=== PATIENT | female | born 1965 ===

== ENCOUNTER → 2020-07-18 08:55 | Outpatient (BNV) | payer MEDICAID, SELFPAY | PROVIDERS: PCP Family Medicine; Visit Provider Internal Medicine Medical Oncology | DX: D69.3 Immune thrombocytopenic purpura (principal) | CPT/HCPCS: 99212; 99213; 99214 ==

== ENCOUNTER → 2020-09-18 13:41 | Outpatient (BNVA) | payer MEDICAID, SELFPAY | PROVIDERS: PCP Family Medicine; Visit Provider Internal Medicine Endocrinology, Diabetes & Metabolism | DX: E11.65 Type 2 diabetes mellitus with hyperglycemia (principal); E11.21 Type 2 diabetes mellitus with diabetic nephropathy; Z79.4 Long term (current) use of insulin; E78.5 Hyperlipidemia, unspecified; E66.9 Obesity, unspecified; E55.9 Vitamin D deficiency, unspecified | CPT/HCPCS: 82947; 99212 ==

== ENCOUNTER 2020-11-15 | Outpatient (REF) | payer MEDICAID, SELFPAY | END 2020-11-15 00:01 | disposition home or self-care (01) | LOC: HO.VC | PROVIDERS: Visit Provider Internal Medicine | DX: Z23 Encounter for immunization (principal) | CPT/HCPCS: 0011A ==

== ENCOUNTER 2020-12-12 | Outpatient (REF) | payer MEDICAID, SELFPAY | END 2020-12-12 00:01 | disposition home or self-care (01) | LOC: HO.VC | PROVIDERS: Visit Provider Internal Medicine | DX: Z23 Encounter for immunization (principal) | CPT/HCPCS: 0012A ==

== ENCOUNTER → 2020-12-26 14:02 | Outpatient (BNVA) | payer MEDICAID, SELFPAY | PROVIDERS: PCP Family Medicine; Visit Provider Internal Medicine Endocrinology, Diabetes & Metabolism | DX: E11.65 Type 2 diabetes mellitus with hyperglycemia (principal); E11.21 Type 2 diabetes mellitus with diabetic nephropathy; Z79.4 Long term (current) use of insulin; E78.5 Hyperlipidemia, unspecified; E66.9 Obesity, unspecified; E55.9 Vitamin D deficiency, unspecified | CPT/HCPCS: 82947; 99212 ==

== ENCOUNTER → 2021-01-09 07:45 | Outpatient (BNVA) | payer MEDICAID, SELFPAY | PROVIDERS: PCP Family Medicine; Visit Provider Internal Medicine Endocrinology, Diabetes & Metabolism ==

== ENCOUNTER → 2021-07-03 14:07 | Outpatient (BNVA) | payer MEDICAID, SELFPAY | PROVIDERS: PCP Family Medicine; Referring Provider Family Medicine; Visit Provider Internal Medicine | DX: I25.10 Atherosclerotic heart disease of native coronary artery without angina pectoris (principal); I10 Essential (primary) hypertension; E78.5 Hyperlipidemia, unspecified; E66.01 Morbid (severe) obesity due to excess calories; E11.8 Type 2 diabetes mellitus with unspecified complications; Z68.41 Body mass index [BMI] 40.0-44.9, adult | CPT/HCPCS: 93005; 99212 ==

== ENCOUNTER → 2021-08-23 13:03 | Outpatient (BNVA) | payer MEDICAID, SELFPAY | PROVIDERS: PCP Family Medicine; Referring Provider Family Medicine; Visit Provider Surgery | DX: Z48.817 Encounter for surgical aftercare following surgery on the skin and subcutaneous tissue (principal); Z87.2 Personal history of diseases of the skin and subcutaneous tissue | CPT/HCPCS: 99202 ==

== ENCOUNTER → 2021-09-11 11:53 | Outpatient (BNVA) | payer MEDICAID, SELFPAY | PROVIDERS: PCP Family Medicine; Visit Provider Nurse Practitioner Gerontology | DX: E11.65 Type 2 diabetes mellitus with hyperglycemia (principal); E11.21 Type 2 diabetes mellitus with diabetic nephropathy; I10 Essential (primary) hypertension; E78.5 Hyperlipidemia, unspecified; M79.7 Fibromyalgia; E03.9 Hypothyroidism, unspecified; F32.A Depression, unspecified; G47.33 Obstructive sleep apnea (adult) (pediatric); E66.01 Morbid (severe) obesity due to excess calories; Z68.41 Body mass index [BMI] 40.0-44.9, adult; Z99.89 Dependence on other enabling machines and devices; Z88.8 Allergy status to other drugs, medicaments and biological substances; Z79.4 Long term (current) use of insulin; Z79.899 Other long term (current) drug therapy | CPT/HCPCS: 82947; 83036; 99212 ==

== ENCOUNTER → 2021-09-25 13:15 | Outpatient (BNVA) | payer MEDICAID, SELFPAY | PROVIDERS: PCP Family Medicine; Referring Provider Family Medicine; Visit Provider Surgery | DX: Z48.817 Encounter for surgical aftercare following surgery on the skin and subcutaneous tissue (principal); Z87.2 Personal history of diseases of the skin and subcutaneous tissue | CPT/HCPCS: 99212 ==

== ENCOUNTER 2022-02-12 10:40 | Outpatient (REF) | payer MEDICAID, SELFPAY ==
[2022-02-12 12:16] LABS: Alanine Aminotransferase 25 U/L (0-31); Alkaline Phosphatase 93 U/L (39-117); Anion Gap 14 (12-20); Aspartate Amino Transferase 18 U/L (5-31); Bilirubin Total 0.6 mg/dL (0.0-1.0); Blood Urea Nitrogen 15 mg/dL (9-16); Carbon Dioxide 31 mmol/L (22-29); Chloride 97 mmol/L (96-108); Cholesterol 123 mg/dL; Estimated Glomerular Filt Rate 51; Glucose Fasting 263 mg/dL (60-99); HDL Cholesterol 39 mg/dL; LDL Cholesterol Calculated 65 mg/dl; Potassium 3.9 mmol/L (3.3-5.1); Sodium 138 mmol/L (135-145); Total Protein 7.1 g/dL (6.5-8.0); Triglycerides 97 mg/dL
[2022-02-12 12:16] LABS: Creatinine Urine 151.89 mg/dL; Microalbum/Creatinine Ratio Ur 52.6 ug/mg cr
[2022-02-14 06:56] LABS: LDL Cholesterol Direct 61 mg/dL (<100)
== END 2022-02-12 10:41 | disposition home or self-care (01) ==
LOC: HO.LAB 10:40
PROVIDERS: PCP Family Medicine; Visit Provider Nurse Practitioner Gerontology
DX: E11.65 Type 2 diabetes mellitus with hyperglycemia (principal)
CPT/HCPCS: 36415; 80053; 80061; 82043; 83721

== ENCOUNTER → 2022-02-19 13:03 | Outpatient (BNVA) | payer MEDICAID, SELFPAY | PROVIDERS: PCP Family Medicine; Visit Provider Nurse Practitioner Gerontology | DX: E11.65 Type 2 diabetes mellitus with hyperglycemia (principal); E78.5 Hyperlipidemia, unspecified; E66.09 Other obesity due to excess calories; I10 Essential (primary) hypertension; Z79.4 Long term (current) use of insulin; Z79.82 Long term (current) use of aspirin | CPT/HCPCS: 82947; 83036; 99212 ==

== ENCOUNTER 2022-03-06 13:03 | Outpatient (REF) | payer MEDICAID, SELFPAY ==
[2022-03-06 15:07] LABS: Free T4 (Free Thyroxine) 0.92 ng/dL (0.71-1.85); Thyroid Stimulating Hormone 2.33 uIU/mL (0.32-4.0)
== END 2022-03-06 13:04 | disposition home or self-care (01) ==
LOC: HO.LAB 13:03
PROVIDERS: PCP Family Medicine; Visit Provider Nurse Practitioner Gerontology
DX: E11.65 Type 2 diabetes mellitus with hyperglycemia (principal)
CPT/HCPCS: 36415; 84439; 84443

== ENCOUNTER → 2022-03-12 13:21 | Outpatient (BNVA) | payer MEDICAID, SELFPAY | PROVIDERS: PCP Family Medicine; Visit Provider Registered Nurse Diabetes Educator | DX: E11.9 Type 2 diabetes mellitus without complications (principal); E66.01 Morbid (severe) obesity due to excess calories | CPT/HCPCS: 95250; 99211 ==

== ENCOUNTER → 2022-04-01 13:34 | Outpatient (BNVA) | payer MEDICAID, SELFPAY | PROVIDERS: PCP Family Medicine; Visit Provider Nurse Practitioner Gerontology | DX: E11.65 Type 2 diabetes mellitus with hyperglycemia (principal); E78.5 Hyperlipidemia, unspecified; I10 Essential (primary) hypertension; E66.09 Other obesity due to excess calories; Z79.4 Long term (current) use of insulin | CPT/HCPCS: 99212 ==

== ENCOUNTER → 2022-09-10 11:54 | Outpatient (BNVA) | payer MEDICAID, SELFPAY | PROVIDERS: PCP Family Medicine; Referring Provider Family Medicine; Visit Provider Internal Medicine | DX: I25.10 Atherosclerotic heart disease of native coronary artery without angina pectoris (principal); E78.5 Hyperlipidemia, unspecified; E66.01 Morbid (severe) obesity due to excess calories; E11.8 Type 2 diabetes mellitus with unspecified complications; Z68.41 Body mass index [BMI] 40.0-44.9, adult | CPT/HCPCS: 93005; 99212 ==

== ENCOUNTER 2023-05-02 10:33 | Outpatient (REF) | payer MEDICAID, SELFPAY ==
--- NOTE | ~2023-05-02 | MM_ITS ---
EXAMINATION: MM SCREENING DIGITAL BREAST TOMOSYNTHESIS, BILATERAL CLINICAL INFORMATION: Screening. Asymptomatic. The lifetime risk of breast cancer based on the Tyrer-Cuzick Model is 5.8%. COMPARISON: Mammography: This study is compared with prior exams dating back to 2018. TECHNIQUE: Digital breast tomosynthesis is performed in both the craniocaudal and mediolateral oblique views along with computer-aided detection (CAD). Synthesized 2D images are generated from the tomosynthesis. FINDINGS: There are scattered areas of fibroglandular density (ACR BI-RADS breast composition Category b). There are calcifications in the deep third of the upper outer quadrant of the left breast which are defined only in the MLO projection. Additional mammographic imaging with magnification is advised. This should also include a laterally exaggerated craniocaudal view to locate the calcifications in the orthogonal plane. In the right breast, no are no significant masses, abnormal calcifications, or other abnormalities. There are few, bilateral, benign calcifications in each breast. MM/MM tomosynthesis screening BI IMPRESSION: Calcifications in the deep third the upper outer quadrant of the left breast warrants additional mammographic imaging with magnification. No mammographic signs of malignancy right breast. ASSESSMENT: BI-RADS BI-RADS 0 - Incomplete: Needs additional Imaging. RECOMMENDATION: Additional views of the left breast with magnification imaging in the lateral and laterally exaggerated craniocaudal projections. Radiology department staff will contact the patient for additional imaging. Additional Imaging required This examination should not preclude the clinical evaluation of a suspicious palpable abnormality. This patient's information was entered into a reminder system with a target due date for their next mammogram.
== END 2023-05-02 10:34 | disposition home or self-care (01) ==
LOC: HO.MAMMO 10:33
PROVIDERS: PCP Family Medicine; Visit Provider Family Medicine
DX: Z12.31 Encounter for screening mammogram for malignant neoplasm of breast (principal)
CPT/HCPCS: 77063; 77067

== ENCOUNTER → 2023-05-02 10:38 | Outpatient (BNV) | payer MEDICAID, SELFPAY | PROVIDERS: PCP Family Medicine; Visit Provider Radiology Diagnostic Radiology | DX: Z12.31 Encounter for screening mammogram for malignant neoplasm of breast (principal) | CPT/HCPCS: 77063; 77067 ==

== ENCOUNTER 2023-06-02 11:55 | Outpatient (REF) | payer MEDICAID, SELFPAY ==
--- NOTE | ~2023-06-02 | MM_ITS ---
EXAMINATION: MM DIAGNOSTIC DIGITAL MAMMOGRAPHY, LEFT CLINICAL INFORMATION: Follow-up for calcifications seen in the far posterior upper outer quadrant of the left breast, just lateral to the nipple line, seen on screening mammography. COMPARISON: Mammography: 05/02/2023, 07/29/2019, and 07/31/2012. TECHNIQUE: Digital mammography is performed in the following views: 3-D full-field digital left exaggerated CC view, as well as 2-D spot magnification left exaggerated CC x 3, and 90 degree mediolateral views x 3. FINDINGS: There are scattered areas of fibroglandular density (ACR BI-RADS breast composition Category b). There are pleomorphic grouped calcifications in the far posterior left breast located along the nipple line in the MLO view, and approximately 1 cm lateral to the nipple line within the exaggerated CCL view. Magnification views could not fully image the calcifications posterior extent due to their far posterior location, and were best seen on the exaggerated CC magnification views. These calcifications are suspicious, and biopsy is recommended. Due to their extreme posterior location, prone stereotactic biopsy may not be feasible, although we will make an attempt at this approach. If we cannot biopsy the calcifications, recommend surgical management with either excisional biopsy or upright stereotactic biopsy technique. The findings and results, as well as the potential for technical difficulties biopsying these far posterior left breast calcifications were discussed with the patient and her daughter (with an maintenance electrician) in detail. MM/MM added views LT IMPRESSION: Suspicious calcifications far posterior left breast as detailed, for which stereotactic biopsy is recommended. Please note, these are located so far posterior they could not be completely imaged on mammography. Recommend attempt utilizing CC approach. Please see discussion above regarding potential biopsy difficulty and alternatives should prone stereotactic biopsy prove technically unfeasible. ASSESSMENT: BI-RADS BI-RADS 4 - Suspicious finding RECOMMENDATION: Biopsy recommended This patient's information was entered into a reminder system with a target due date for their next mammogram.
== END 2023-06-02 11:56 | disposition home or self-care (01) ==
LOC: HO.MAMMO 11:55
PROVIDERS: PCP Family Medicine; Visit Provider Family Medicine
DX: R92.1 Mammographic calcification found on diagnostic imaging of breast (principal)
CPT/HCPCS: 77065

== ENCOUNTER → 2023-06-02 12:30 | Outpatient (BNV) | payer MEDICAID, SELFPAY | PROVIDERS: PCP Family Medicine; Visit Provider Radiology Diagnostic Radiology | DX: R92.1 Mammographic calcification found on diagnostic imaging of breast (principal) | CPT/HCPCS: 77065 ==

== ENCOUNTER 2023-06-04 12:14 | Outpatient (REF) | payer MEDICAID, SELFPAY ==
[2023-06-04 14:35] LABS: Alanine Aminotransferase 27 U/L (0-31); Albumin Level 3.8 g/dL (3.5-5.0); Alkaline Phosphatase 110 U/L (39-117); Anion Gap 12 (12-20); Aspartate Amino Transferase 18 U/L (5-31); Bilirubin Direct 0.2 mg/dL (0.0-0.5); Bilirubin Total 0.4 mg/dL (0.0-1.0); Blood Urea Nitrogen 14 mg/dL (9-16); Calcium 9.3 mg/dL (8.4-10.2); Carbon Dioxide 31 mmol/L (22-29); Chloride 98 mmol/L (96-108); Cholesterol 131 mg/dL (<200); Estimated Glomerular Filt Rate > 60; Glucose Random 334 mg/dL (60-115); HDL Cholesterol 53 mg/dL (>40); LDL Cholesterol Calculated 65 mg/dL (<100); Sodium 137 mmol/L (135-145); Total Protein 7.1 g/dL (6.5-8.0); Triglycerides 66 mg/dL (<150)
[2023-06-04 14:38] LABS: TSH reflex Free T4 1.56 uIU/mL (0.32-4.0)
[2023-06-04 14:40] LABS: Creatinine Urine 149.94 mg/dL
[2023-06-04 14:51] LABS: Vitamin B12 521 pg/mL (200-900)
== END 2023-06-04 12:15 | disposition home or self-care (01) ==
LOC: HO.HHCL 12:14
PROVIDERS: Visit Provider Family Medicine
DX: E03.9 Hypothyroidism, unspecified (principal); D51.0 Vitamin B12 deficiency anemia due to intrinsic factor deficiency; E11.9 Type 2 diabetes mellitus without complications; Z79.4 Long term (current) use of insulin
CPT/HCPCS: 36415; 80048; 80061; 80076; 82043; 82607; 84443

== ENCOUNTER 2023-06-06 08:41 | Outpatient (AMB) | payer MEDICAID, SELFPAY ==
--- NOTE | 2023-06-06 08:40 | MHC.OFFVIS ---
Intake Vital Signs 06/06/23 09:00 Height 4 ft 11 in Weight 208 lb BMI 42.0 BP 143/65 H Blood Pressure Location Lt brachial Position Sitting Pulse 101 H Intake Visit Reasons: Stereo biopsy left breast UOQ for calcifications Intake Note: Patient is seen in office for stereo biopsy consult of the left breast upper outer quadrant for calcifications. 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 If this is not possible she may require either a and upright stereotactic technique verses surgical biopsy. She denies a previous history of breast problems or breast surgery. Her family history is negative for breast cancer. She currently has no breast symptoms including breast lump, nipple discharge, or enlarged lymph nodes. She does report diffuse breast pain on both sides. She is and denies breast-feeding her children. 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 Obesity (BMI 30-39.9) Obesity due to excess calories Pernicious anemia Vitamin D deficiency Surgical History H/O: hysterectomy Hx of cataract surgery Family History Mother Diabetes Sister Stomach cancer Father Brother Colon cancer Brother Pancreas cancer Social History Household Members: None Housing: Apartment Are you a primary body care manager to a significant other at home: No Do you presently have visiting nurse or other home services: No Alcohol intake: current Alcohol intake frequency: does not drink Patient Tobacco Use Status: Former Tobacco user Quit Date: Over 20 years ago service: No Current occupational status: unemployed Current occupation: she lives with her . Female Reproductive History Menstrual Age of Menarche: 7 Age of menopause: 23 Total pregnancies: 3 Number of Living Children: 2 Ab spontaneous: 1 Review of Systems Const All systems reviewed & are unremarkable except as noted in HPI and below Denies chills, Denies fever(s), Denies headache(s), Denies poor appetite and Denies weakness ENT Denies headache(s) Card Denies chest pain, Denies irregular heart rhythm, Denies palpitations and Denies dyspnea Resp Denies cough, Denies excessive phlegm production and Denies dyspnea GI Denies abdominal pain, Denies bloating, Denies change in bowel habits, Denies constipation, Denies heartburn, Denies diarrhea, Denies nausea and Denies vomiting Denies urinary frequency and Denies nipple discharge Musc Denies back pain, Denies muscle weakness and Denies numbness Skin/Breast Denies breast swelling, Denies breast skin changes, Reports breast pain, Denies breast mass, Denies changing lesions, Denies nipple discharge and Denies unusual bruising Neuro Denies headache(s), Denies numbness, Denies paresthesias and Denies weakness Psych Denies anxiety and Denies depression Endo Denies palpitations Drew/Lymph Denies lymphadenopathy Physical Exam Const General: cooperative and no acute distress Nutritional Appearance: well nourished Orientation/consciousness: patient oriented x3 Limitations: no limitations HEENT Head: Yes normocephalic and Yes atraumatic Ears: hearing grossly normal bilaterally Chest Other: Left breast: No skin change, no nipple retraction, no nipple discharge, no palpable mass, no enlarged lymph nodes. Right breast: No skin change, no nipple retraction, no nipple discharge, no palpable mass, no enlarged lymph nodes Chest/axillae images: 1. Area of tenderness right breast 2. Area of tenderness left breast with no palpable mass; Dense breast tissue throughout. Resp Effort & Inspection: normal respiratory effort, no audible wheezes, no cough and no respiratory distress Cardio Jugular venous distension: no JVD GI Inspection: Yes normal to inspection Skin Other: Warm, dry, no rash Neuro General: patient oriented x3 Extrem General: Yes no clubbing, cyanosis or edema Assessment & Plan Assessment & Plan (1) Abnormal mammogram of left breast: Code(s): R92.8 - Other abnormal and inconclusive findings on diagnostic imaging of breast Plan 57-year-old female patient presenting with a recent mammogram with follow-up images which confirm a cluster of calcifications for posterior in the left breast seen best on the CC view. Findings were felt to be high suspicion for malignancy and stereotactic guided core biopsy recommended. She is scheduled for this biopsy at the [facility] later today. Examination today revealed no suspicious findings in either breast and no enlarged lymph nodes. I asked her to return approximately 1 week to review the pathology results and discuss treatment options as necessary. She expressed understanding and agrees with the plan. Orders: Orders MM stereotactic biopsy LT Today R92.8 - Other abnormal and inconclusive findings on diagnostic imaging of breast Coding Level of Care Code New Pt Level 4 (97257) Diagnoses Abnormal mammogram of left breast R92.8
[2023-06-06 09:00] VITALS: BP 143/65; PULSE 101; BMI 42.0
== END 2023-06-06 09:12 | disposition home or self-care (01) ==
PROVIDERS: PCP Family Medicine; Visit Provider Surgery
DX: R92.8 Other abnormal and inconclusive findings on diagnostic imaging of breast (principal)
CPT/HCPCS: 99214

== ENCOUNTER 2023-06-06 09:22 | Outpatient (REF) | payer MEDICAID, SELFPAY ==
--- NOTE | ~2023-06-06 | MM_ITS ---
EXAMINATION: STEREOTACTIC TOMOSYNTHESIS-GUIDED VACUUM-ASSISTED BREAST BIOPSY, LEFT SPECIMEN RADIOGRAPH, LEFT POST PROCEDURE DIGITAL MAMMOGRAM, LEFT CLINICAL INFORMATION: 57-year-old female with suspicious calcifications far posterior left breast 11:30 o'clock axis., 10 cm from the nipple. COMPARISON: 05/02/2023, 06/02/2023. TECHNIQUE/PROCEDURE: Informed consent was obtained from the patient after discussion of the benefits, risks, and alternatives to biopsy today. Patient appeared to understand. Gave opportunity for questions. Patient signed consent form. BIOPSY TABLE: [employer] Prone Biopsy System. LESION: Calcifications 11:30 o'clock axis, posterior one third approximately 10 cm from the nipple. LOCAL ANESTHESIA: 5 mL 1% lidocaine; 8 mL 1% lidocaine with epinephrine. DERMATOTOMY: Single skin hattie dermatotomy performed. NEEDLE: Glider.ioiva 9-gauge vacuum assisted core biopsy device. APPROACH: Craniocaudal. TARGETING: Digital breast tomosynthesis used for targeting. CORES: 6. CLIP: Top hat-shaped accurately placed, no evidence of clip migration. SPECIMEN RADIOGRAPH: Specimen radiograph is taken in separate room using digital mammography. The index calcifications are in at least 2 of the excised cores. POST PROCEDURE UNILATERAL DIGITAL MAMMOGRAM: The post biopsy mammogram is performed in separate room using separate digital mammography equipment from the biopsy procedure. X CCL and ML 2-D views are obtained. There are scattered areas of fibroglandular density (breast composition category: b). The clip marker is in accurate position. The calcifications are markedly decreased at the biopsy site. No gross hematoma. No evidence of complication. The patient tolerated the procedure very well. No immediate complications. Home instructions reviewed with the patient. Final pathology results are pending. MM/MM stereotactic biopsy LT IMPRESSION: 1. Digital tomosynthesis-guided core biopsy left breast with clip placement. 2. Specimen radiograph taken and post procedure mammogram. There is satisfactory and accurate positioning of the top hat-shaped biopsy clip. 3. Final pathology results pending. An addendum report will be issued.
[2023-06-06] MEDS: Lidocaine HCl 1 % 20 ML VIAL 4 ML SUBCUT (11:14)
[2023-06-06] MEDS: Lidocaine HCl 1%/Epi 1:100,000 10 ML VIAL 20 ML SUBCUT (11:16)
[2023-06-06] MEDS: Sodium Bicarbonate 8.4% 50 MEQ/50 ML VIAL SUBCUT (11:18)
== END 2023-06-06 09:23 | disposition home or self-care (01) ==
LOC: HO.MAMMO 09:22
PROVIDERS: PCP Family Medicine; Visit Provider Surgery
DX: R92.8 Other abnormal and inconclusive findings on diagnostic imaging of breast (principal)
CPT/HCPCS: 19081; 88305; 99212; A4648

== ENCOUNTER → 2023-06-06 10:00 | Outpatient (BNV) | payer MEDICAID, SELFPAY | PROVIDERS: PCP Family Medicine; Visit Provider Radiology Diagnostic Radiology | DX: R92.1 Mammographic calcification found on diagnostic imaging of breast (principal) | CPT/HCPCS: 19081; 77061 ==

== ENCOUNTER 2023-06-13 10:57 | Outpatient (AMB) | payer MEDICAID, SELFPAY ==
--- NOTE | 2023-06-13 11:27 | A.OFFVIS_ITS ---
Intake Vital Signs 06/13/23 11:36 Height 4 ft 11 in Weight 207 lb 3.752 oz BMI 41.9 BP 120/70 Blood Pressure Location Lt brachial Position Sitting Intake Visit Reasons: Follow Up Lt ST BX Intake Note: Patient is seen in office for biopsy results, following left breast. Patient c/o: denies any concerns Acupuncture Physician Required: No Accompanied by: Self / Same As Patient Allergies ibuprofen [IBUPROFEN] Allergy (Mild, Verified 06/13/23 11:37) RASH Medication List - Last Reconciled 06/13/23 by Zach Wilkinson MD acetaminophen (Tylenol Extra Strength) 1,000 mg PO QID PRN albuterol sulfate 90 mcg/actuation 2 puffs inhalation Q6H PRN alcohol swabs (Alcohol Prep Pads) 1 pad topical .6 times a day 30 days artificial tears with lanolin 1 appl ophthalmic (eye) BEDTIME aspirin (Adult Low Dose Aspirin) 81 mg PO DAILY atorvastatin 80 mg PO DAILY 90 days blood sugar diagnostic (FreeStyle Lite Strips) As directed four times a day cetirizine 10 mg PO DAILY cholecalciferol (vitamin D3) 50 mcg PO DAILY clonazepam 1 mg PO BEDTIME cyanocobalamin (vitamin B-12) 1,000 mcg IM QMONTH cyclobenzaprine 10 mg PO BEDTIME dicyclomine 10 mg PO TID doxycycline monohydrate 50 mg PO BID duloxetine 30 mg PO DAILY ferrous sulfate (Ibeth-Time) 325 mg PO BID finasteride 5 mg PO DAILY hydrochlorothiazide 12.5 mg PO DAILY insulin NPH and regular human 100 unit/mL (70-30) (Humulin 70/30 U-100 KwikPen) 100 units before breakfast and 60units before dinner subcut .Twice a day; 30 d ays ketotifen fumarate 0.025%(0.035%) 1 drp ophthalmic (eye) BID lancets (FreeStyle Lancets) 4 times a day levothyroxine (Tirosint) 137 mcg PO DAILY lisinopril 2.5 mg PO DAILY omega-3 fatty acids (Fish Oil Concentrate) 1,000 mg PO DAILY omeprazole 20 mg PO DAILY pen needle, diabetic (BD Karla 2nd Gen Pen Needle) Twice a day quetiapine 100 mg PO BEDTIME semaglutide (Ozempic) 2 mg (0.75 mL) subcut QWEEK 30 days zolpidem 10 mg PO BEDTIME HPI HPI Comments History of Present Illness Details 57-year-old female patient returning following a recent stereotactic guided core biopsy of the left breast. She initially presented with a mammogram dated 05/02/2023 with follow-up images obtained 06/02/2023 which revealed a cluster of calcifications in the far posterior left breast noted on the CC image, felt to be suspicious for malignancy. She denied any breast symptoms or palpable breast lump in her family history was negative for breast cancer. She is and denies breast-feeding her children. She underwent stereotactic guided core biopsy at the [facility] on 06/06/2023. Pathology revealed Benign breast tissue with fibroadenomatous change and coarse calcifications; negative for atypia or malignancy. She tolerated the procedure well and denies any ongoing breast symptoms. 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 Obesity (BMI 30-39.9) Obesity due to excess calories Pernicious anemia Vitamin D deficiency Surgical History H/O: hysterectomy Hx of cataract surgery Family History Mother Diabetes Sister Stomach cancer Father Brother Colon cancer Brother Pancreas cancer Social History Household Members: None Housing: Apartment Are you a primary school childcare attendant to a significant other at home: No Do you presently have visiting nurse or other home services: No Alcohol intake: current Alcohol intake frequency: does not drink Patient Tobacco Use Status: Former Tobacco user Quit Date: Over 20 years ago service: No Current occupational status: unemployed Current occupation: she lives with her . Female Reproductive History Menstrual Age of Menarche: 7 Review of Systems Const All systems reviewed & are unremarkable except as noted in HPI and below Denies chills, Denies fever(s), Denies headache(s), Denies poor appetite and Denies weakness ENT Denies headache(s) Card Denies chest pain, Denies irregular heart rhythm, Denies palpitations and Denies dyspnea Resp Denies cough, Denies excessive phlegm production and Denies dyspnea GI Denies abdominal pain, Denies bloating, Denies change in bowel habits, Denies constipation, Denies heartburn, Denies diarrhea, Denies nausea and Denies vomiting Denies urinary frequency and Denies nipple discharge Musc Denies back pain, Denies muscle weakness and Denies numbness Skin/Breast Denies breast swelling, Denies breast skin changes, Reports breast pain, Denies breast mass, Denies changing lesions, Denies nipple discharge and Denies unusual bruising Neuro Denies headache(s), Denies numbness, Denies paresthesias and Denies weakness Psych Denies anxiety and Denies depression Endo Denies palpitations Drew/Lymph Denies lymphadenopathy Physical Exam Vital Signs: Last Vital Signs BP 120/70 06/13/23 11:36 BMI result Body Mass Index 41.9 Const General: no acute distress Nutritional Appearance: well nourished Orientation/consciousness: patient oriented x3 Chest Other: Exam deferred Resp Effort & Inspection: normal respiratory effort Skin Other: Warm, dry, no rash Neuro General: patient oriented x3 Extrem General: Yes no clubbing, cyanosis or edema Assessment & Plan Assessment & Plan (1) Abnormal mammogram of left breast: Code(s): R92.8 - Other abnormal and inconclusive findings on diagnostic imaging of breast Plan 57-year-old female with a recent mammogram which revealed abnormal cluster of calcifications in the left breast felt to be suspicious for malignancy. Stereotactic guided core biopsy was performed on 06/06/2023. Pathology revealed benign findings with no evidence of malignancy. No surgical intervention is recommended at this time. Follow-up mammogram will be based on radiology recommendations. She should follow up as needed. Coding Level of Care Code Est Pt Level 3 (88576) Diagnoses Abnormal mammogram of left breast R92.8
[2023-06-13 11:36] VITALS: BP 120/70; BMI 41.9
== END 2023-06-13 11:47 | disposition home or self-care (01) ==
PROVIDERS: PCP Family Medicine; Visit Provider Surgery
DX: R92.8 Other abnormal and inconclusive findings on diagnostic imaging of breast (principal)
CPT/HCPCS: 99213

== ENCOUNTER → 2023-06-13 10:57 | Outpatient (BNVA) | payer MEDICAID, SELFPAY | PROVIDERS: PCP Family Medicine; Visit Provider Surgery | DX: R92.8 Other abnormal and inconclusive findings on diagnostic imaging of breast (principal) | CPT/HCPCS: 99212 ==

== ENCOUNTER → 2023-07-16 14:52 | Outpatient (REF) | payer MEDICAID, SELFPAY | LOC: HO.CARD 14:52 | PROVIDERS: PCP Family Medicine; Visit Provider Student in an Organized Health Care Education/Training Program | DX: R60.0 Localized edema (principal) | CPT/HCPCS: 93306; Q9957 ==

== ENCOUNTER → 2023-07-16 14:56 | Outpatient (BNV) | payer MEDICAID, SELFPAY | PROVIDERS: PCP Family Medicine; Visit Provider Internal Medicine | DX: R60.0 Localized edema (principal) | CPT/HCPCS: 93306 ==

== ENCOUNTER 2023-10-29 12:57 | Outpatient (AMB) | payer MEDICAID, SELFPAY ==
--- NOTE | 2023-10-29 13:03 | A.OFFVIS_ITS ---
Intake Vital Signs 10/29/23 14:21 Height 4 ft 11 in Weight 210 lb BMI 42.4 BP 120/74 Intake Visit Reasons: Inflamed cyst on buttock Intake Note: Pt states she's had it for a few months. Has taken a few courses of antibiotics. Data Officer Required: Yes Allergies ibuprofen [IBUPROFEN] Allergy (Mild, Verified 07/24/23 13:37) RASH Medication List - Last Reconciled 10/29/23 by Ata Fleming RN acetaminophen (Tylenol Extra Strength) 1,000 mg PO QID PRN alcohol swabs (Alcohol Prep Pads) 1 pad topical .6 times a day 30 days artificial tears with lanolin 1 appl ophthalmic (eye) BEDTIME aspirin (Adult Low Dose Aspirin) 81 mg PO DAILY atorvastatin 80 mg PO DAILY 90 days blood sugar diagnostic (FreeStyle Lite Strips) As directed four times a day cetirizine 10 mg PO DAILY cholecalciferol (vitamin D3) 50 mcg PO DAILY clonazepam 1 mg PO BEDTIME cyanocobalamin (vitamin B-12) 1,000 mcg IM QMONTH cyclobenzaprine 10 mg PO BEDTIME dicyclomine 10 mg PO TID duloxetine 30 mg PO DAILY ferrous sulfate 325 mg PO DAILY ferrous sulfate (Ibeth-Time) 325 mg PO BID finasteride 5 mg PO DAILY hydrochlorothiazide 12.5 mg PO DAILY insulin NPH and regular human 100 unit/mL (70-30) (Humulin 70/30 U-100 KwikPen) 100 units before breakfast and 60units before dinner subcut .Twice a day; 30 days ketotifen fumarate 0.025%(0.035%) 1 drp ophthalmic (eye) BID lancets (FreeStyle Lancets) 4 times a day levothyroxine (Tirosint) 137 mcg PO DAILY lisinopril 2.5 mg PO DAILY omega-3 fatty acids (Fish Oil Concentrate) 1,000 mg PO DAILY omeprazole 20 mg PO DAILY pen needle, diabetic (BD Karla 2nd Gen Pen Needle) Twice a day quetiapine 100 mg PO BEDTIME zolpidem 10 mg PO BEDTIME HPI HPI Comments History of Present Illness Details 58-year-old female patient presenting fo r evaluation of a posterior buttock abscess. She reports infection ongoing in this site for several months with intermittent flare-ups. She has been on several courses of antibiotics which have not significantly helped. She denies any fever or chills but does have occasional discharge. [facility] Medical History Obesity due to excess calories Atherosclerotic cardiovascular disease Vitamin D deficiency Obesity (BMI 30-39.9) Dyslipidemia Diabetic nephropathy associated with type 2 diabetes mellitus MCFP (current) use of insulin Diabetes type 2, uncontrolled History of chest pain Asthma Pernicious anemia Diabetes mellitus Fibromyalgia GERD (gastroesophageal reflux disease) Hypertension Adult hypothyroidism Surgical History Hx of cataract surgery H/O: hysterectomy Family History Mother Diabetes Sister Stomach cancer Father Brother Colon cancer Brother Pancreas cancer Social History Household Members: None Housing: Apartment Are you a primary manager urgent care to a significant other at home: No Do you presently have visiting nurse or other home services: No Alcohol intake: current Alcohol intake frequency: does not drink Patient Tobacco Use Status: Former Tobacco user Quit Date: Over 20 years ago service: No Current occupational status: unemployed Current occupation: she lives with her . Female Reproductive History Menstrual Age of Menarche: 7 Review of Systems Const All systems reviewed & are unremarkable except as noted in HPI and below Denies chills, Denies fever(s), Denies headache(s), Denies poor appetite and Denies weakness ENT Denies headache(s) Card Denies chest pain, Denies irregular heart rhythm, Denies palpitations and Denies dyspnea Resp Denies cough, Denies excessive phlegm production and Denies dyspnea GI Denies abdominal pain, Denies bloating, Denies change in bowel habits, Denies constipation, Denies heartburn, Denies diarrhea, Denies nausea and Denies vomi ting Denies urinary frequency Musc Denies back pain, Denies muscle weakness and Denies numbness Skin/Breast Denies changing lesions and Denies unusual bruising Neuro Denies headache(s), Denies numbness, Denies paresthesias and Denies weakness Psych Denies anxiety and Denies depression Endo Denies palpitations Drew/Lymph Denies lymphadenopathy Physical Exam Vital Signs: Last Vital Signs BP 120/74 10/29/23 14:21 BMI result Body Mass Index 42.4 Const General: cooperative and no acute distress Nutritional Appearance: well nourished Orientation/consciousness: patient oriented x3 Limitations: no limitations HEENT Head: Yes normocephalic and Yes atraumatic Ears: hearing grossly normal bilaterally Resp Effort & Inspection: normal respiratory effort, no audible wheezes, no cough and no respiratory distress Cardio Jugular venous distension: no JVD GI Inspection: Yes normal to inspection Back/Spine/Pelvis Other: Inflammatory changes in the posterior gluteal skin along the intergluteal cleft suggestive of local dermatitis or moisture excoriation. An areas slightly more inferior in the perianal region is more suggestive of a perianal abscess. A small fluctuant collection is identified. Skin Other: Warm, dry, no rash Neuro General: patient oriented x3 Extrem General: Yes no clubbing, cyanosis or edema Office Procedures I&D Drain Details: Preoperative diagnosis: Perirectal abscess Postoperative diagnosis: Same Procedure: I&D perirectal abscess Surgeon: Zach Wilkinson MD Biological Photographer: None Anesthesia: Lidocaine 1% with epi Indications for procedure: Abscess perirectal Operative findings: Abscess perirectal Specimen: None Estimated blood loss: None Complications: None Procedure details: Patient was placed in a right lateral decubitus position. The abscess was identified. After assuring informed consent, the skin was prepped with Betadine and draped in a sterile fashion. Local anesthesia was then infiltrated over the abscess. A small incision was then made with a scalpel and a small collection drained. This was then packed with Nu Gauze qu arter-inch. Sterile dressings were applied. The patient tolerated the procedure well. [id number] of Skin Abscess, simple All charges added?: Procedure code (CPT) selection complete Assessment & Plan Assessment & Plan (1) Abscess: Code(s): L02.91 - Cutaneous abscess, unspecified Plan 58-year-old female patient presenting with perianal abscess. This was incised and drained with a small abscess. Collection drained. Wounds were packed patient instructed on local wound care. Coding Level of Care Code New Pt Level 3 (46937) Diagnoses Abscess L02.91 CPT Codes I&D Drain - Drain 1: [id number] of Skin Abscess, simple ([id number])
[2023-10-29 14:21] VITALS: BP 120/74; BMI 42.4
== END 2023-10-29 13:33 | disposition home or self-care (01) ==
PROVIDERS: PCP Family Medicine; Visit Provider Surgery
DX: L02.91 Cutaneous abscess, unspecified (principal)
CPT/HCPCS: 10060; 99213

== ENCOUNTER → 2023-10-29 12:57 | Outpatient (BNVA) | payer MEDICAID, SELFPAY | PROVIDERS: PCP Family Medicine; Visit Provider Surgery | DX: K61.0 Anal abscess (principal) | CPT/HCPCS: 10060; 99212 ==

== ENCOUNTER 2023-11-06 14:20 | Outpatient (AMB) | payer MEDICAID, SELFPAY ==
--- NOTE | 2023-11-06 14:24 | MHC.OFFVIS ---
Intake Vital Signs 11/06/23 14:37 Height 4 ft 11 in Weight 215 lb 4 oz BMI 43.5 BP 132/60 Blood Pressure Location Lt brachial Position Sitting Pulse 89 Intake Visit Reasons: Inflamed cyst on buttock, 1 wk follow up Intake Note: Patient is seen in office for one week follow up visit, post I&D of perianal abscess. Pt c/o: admits to continued discharge in the area, feels a lump in the area, hot to the touch, has a new abscess on bilateral side of the groin area Tool Grinder Operator External Required: Yes Tool Grinder Operator External Language: Transplant Nurse Practitioner Name: Liz MCCULLOUGH Information Interpreted: non-clinical & clinical Cnc Set Up Operator: Cnc Set Up Operator Present Accompanied by: Self / Same As Patient Allergies ibuprofen [IBUPROFEN] Allergy (Mild, Verified 11/06/23 14:37) RASH HPI HPI Comments History of Present Illness Details 58-year-old female patient returning following incision and drainage of an abscess in the posterior buttock. She feels a residual lump and occasional discharge from the site but generally feels improved. She also notes an area in bilateral groins which are red and irritated and causing some pain. She denies any bleeding or discharge from the site. 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 Diabetes type 2, uncontrolled Asthma Pernicious anemia Diabetes mellitus Fibromyalgia GERD (gastroesophageal reflux disease) Hypertension Adult hypothyroidism Surgical History (Updated 11/06/23 @ 14:43 by Jacinta Bray RN) H/O colonoscopy Hx of cataract surgery H/O: hysterectomy Family History Mother Diabetes Sister Stomach cancer Father Brother Colon cancer Brother Pancreas cancer Social History Household Members: None Housing: Apartment Are you a primary acute care surgeon to a significant other at home: No Do you presently have visiting nurse or other home services: No Alcohol intake: current Alcohol intake frequency: does not drink Patient Tobacco Use Status: Former Tobacco user Quit Date: Over 20 years ago service: No Current occupational status: unemployed Current occupation: she lives with her . Female Reproductive History Menstrual Age of Menarche: 7 Review of Systems Const All systems reviewed & are unremarkable except as noted in HPI and below Denies chills, Denies fever(s), Denies headache(s), Denies poor appetite and Denies weakness ENT Denies headache(s) Card Denies chest pain, Denies irregular heart rhythm, Denies palpitations and Denies dyspnea Resp Denies cough, Denies excessive phlegm production and Denies dyspnea GI Denies abdominal pain, Denies bloating, Denies change in bowel habits, Denies constipation, Denies heartburn, Denies diarrhea, Denies nausea and Denies vomiting Denies urinary frequency Musc Denies back pain, Denies muscle weakness and Denies numbness Skin/Breast Denies changing lesions and Denies unusual bruising Neuro Denies headache(s), Denies numbness, Denies paresthesias and Denies weakness Psych Denies anxiety and Denies depression Endo Denies palpitations Drew/Lymph Denies lymphadenopathy Physical Exam Vital Signs: Last Vital Signs Pulse 89 11/06/23 14:37 BP 132/60 11/06/23 14:37 BMI result Body Mass Index 43.5 Const General: cooperative and no acute distress Nutritional Appearance: well nourished Orientation/consciousness: patient oriented x3 Limitations: no limitations HEENT Head: Yes normocephalic and Yes atraumatic Ears: hearing grossly normal bilaterally Resp Effort & Inspection: normal respiratory effort, no audible wheezes, no cough and no respiratory distress Cardio Jugular venous distension: no JVD GI Other: Bilateral groins reveal an area of erythema suggestive of a fungal skin infection. No abscess is appreciated. Inspection: Yes normal to inspection Back/Spine/Pelvis Other: Previous inflammatory changes in the posterior gluteal skin is now much improved. The I&D site is clean and nearly closed. No residual abscess is appreciated. The surrounding skin is much improved as well. Skin Other: Warm, dry, no rash Neuro General: patient oriented x3 Extrem General: Yes no clubbing, cyanosis or edema Assessment & Plan Assessment & Plan (1) Fungal skin infection: Code(s): B36.9 - Superficial mycosis, unspecified Plan 58-year-old female patient status post incision and drainage of an abscess of the perianal skin. Her wounds are much improved with no evidence of ongoing abscess. She does appear to have a fungal skin infection of the bilateral groins. I recommended applying nystatin cream daily to this area. She should follow up as needed. Medications: New nystatin Applied to bilateral groins daily 1 appl topical DAILY 15 grams 0RF B36.9 - Superficial mycosis, unspecified Coding Level of Care Code Global (28803) Diagnoses Fungal skin infection B36.9
[2023-11-06 14:37] VITALS: BP 132/60; PULSE 89; BMI 43.5
== END 2023-11-06 14:47 | disposition home or self-care (01) ==
PROVIDERS: PCP Family Medicine; Visit Provider Surgery
DX: B36.9 Superficial mycosis, unspecified (principal)
CPT/HCPCS: 99024

== ENCOUNTER → 2023-11-06 14:20 | Outpatient (BNVA) | payer MEDICAID, SELFPAY | PROVIDERS: PCP Family Medicine; Visit Provider Surgery | DX: B36.9 Superficial mycosis, unspecified (principal) | CPT/HCPCS: 99212 ==

== ENCOUNTER 2023-11-10 08:06 | Day surgery (SDC) | payer MEDICAID, SELFPAY ==
[2023-11-06 14:47] VITALS: BMI 43.2
--- NOTE | 2023-11-07 11:55 | HO.ANESPROP2 ---
Documented by User: Grecia Patel NP 11/07/23 11:57 HPI - Anesthesia Eval Consult details Narrative: 58yo F for Colonoscopy Previously seen by [facility] for ASCD with negative coronary CTA. No f/u since 2021 [facility] Active Problems Active Problems: All Active Problems (Updated 11/06/23 @ 14:46 by Jacinta Bray RN) Fungal skin infection (Acute) Abnormal mammogram of left breast (Acute) Abscess (Acute) Morbid obesity (Acute) Other and unspecified hyperlipidemia (Acute) Essential hypertension (Acute) Type 2 diabetes mellitus with unspecified complications (Acute) Chronic ITP (idiopathic thrombocytopenia) (Acute) Chronic ITP (idiopathic thrombocytopenia) (Acute) Chronic ITP (idiopathic thrombocytopenia) (Acute) Obesity due to excess calories (Acute) Atherosclerotic cardiovascular disease (Acute) Vitamin D deficiency (Acute) Obesity (BMI 30-39.9) (Acute) Dyslipidemia (Acute) Diabetic nephropathy associated with type 2 diabetes mellitus (Acute) 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 (Acute) Diabetes type 2, uncontrolled (Acute) Diabetes mellitus (Acute) Past Medical History Medical History CAD (coronary artery disease) Migraines Anxiety and depression IBS (irritable bowel syndrome) Sleep apnea Obesity due to excess calories Atherosclerotic cardiovascular disease Vitamin D deficiency Obesity (BMI 30-39.9) Dyslipidemia Diabetic nephropathy associated with type 2 diabetes mellitus 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 Diabetes type 2, uncontrolled Asthma Pernicious anemia Diabetes mellitus Fibromyalgia GERD (gastroesophageal reflux disease) Hypertension Adult hypothyroidism Family History Family History Mother Diabetes Sister Stomach cancer Father Brother Colon cancer Brother Pancreas cancer Surgical History Surgical History H/O colonoscopy Hx of cataract surgery H/O: hysterectomy Social History Social History Household Members: None Housing: Apartment Are you a primary patient centered care specialist to a significant other at home: No Do you presently have visiting nurse or other home services: No Alcohol intake: current Alcohol intake frequency: does not drink Patient Tobacco Use Status: Former Tobacco user Quit Date: Over 20 years ago Advance Directives: No Advance Directives Information Provided: Yes service: No Current occupational status: unemployed Current occupation: she lives with her . Meds Allergies Allergy/AdvReac Type Severity Reaction Status Date / Time ibuprofen [IBUPROFEN] Allergy Mild RASH Verified 11/10/23 09:25 Home Medications Medication Instructions Recorded Confirmed Last Taken Type artificial tears with lanolin eye 1 applic ophthalmic (eye) BEDTIME 07/18/20 11/06/23 Unknown History ointment cetirizine 10 mg tablet 10 mg PO DAILY 07/18/20 11/06/23 Unknown History clonazepam 1 mg tablet 1 mg PO BEDTIME 07/18/20 11/06/23 Unknown History cyanocobalamin (vitamin B-12) 1,000 mcg IM QMONTH 07/18/20 11/06/23 Unknown History 1,000 mcg/mL injection solution duloxetine 30 mg capsule,delayed 30 mg PO DAILY 07/18/20 11/06/23 Unknown History release hydrochlorothiazide 12.5 mg capsule 12.5 mg PO DAILY 07/18/20 11/06/23 Unknown History ketotifen fumarate 0.025 % (0.035 1 drp ophthalmic (eye) BID 07/18/20 11/06/23 Unknown History %) eye drops levothyroxine 137 mcg capsule 137 mcg PO DAILY 07/18/20 11/06/23 Unknown History (Tirosint) lisinopril 2.5 mg tablet 2.5 mg PO DAILY 07/18/20 11/06/23 Unknown History omeprazole 20 mg capsule,delayed 20 mg PO DAILY 07/18/20 11/06/23 Unknown History release quetiapine 100 mg tablet 100 mg PO BEDTIME 07/18/20 11/06/23 Unknown History acetaminophen 500 mg tablet 1,000 mg PO QID PRN Pain 08/25/20 11/06/23 Unknown History (Tylenol Extra Strength) dicyclomine 10 mg capsule 10 mg PO TID 12/11/20 11/06/23 Unknown History cyclobenzaprine 10 mg tablet 10 mg PO BEDTIME 12/26/20 11/06/23 Unknown History aspirin 81 mg tablet,delayed 81 mg PO DAILY 07/03/21 11/06/23 10/20/23 History release (Adult Low Dose Aspirin) cholecalciferol (vitamin D3) 50 50 mcg PO DAILY 07/03/21 11/06/23 Unknown History mcg (2,000 unit) capsule finasteride 5 mg tablet 5 mg PO DAILY 07/03/21 11/06/23 Unknown History omega-3 fatty acids 1,000 mg 1,000 mg PO DAILY 07/03/21 11/06/23 10/20/23 History capsule (Fish Oil Concentrate) zolpidem 10 mg tablet 10 mg PO BEDTIME 07/03/21 11/06/23 Unknown History Mounjaro 11/10/23 11/10/23 Unknown History Exam Height,Weight and Vital Signs: Height 4 ft 11 in Weight 97.069 kg Narrative Narrative: ECHO 07/2023 Conclusions: - The left ventricular systolic function is low normal. The visually estimated ejection fraction is between 50-55%. - No obvious valvular pathology seen on this study. Assessment and Plan Assessment Anesthesia Assessment: Chart Reviewed Documented by User: Joanna Harding MD 11/10/23 10:17 HPI - Anesthesia Eval Consult details Narrative: 58yo F for Colonoscopy Previously seen by [facility] for ASCD with negative coronary CTA. No f/u since 2021. On enquiry about medications for DM, patient states also taking mounjaro( Last dose 11/07/23) and toujeo. Patient unclear about what medications taken and when especially the Mounjaro- states was taven last Friday. On talking to Dr Robertson, patient had been instructed to stop mounjaro and patient now states that last dose of Mounjaro was 2 weeks ago. Was administered by her ACTION INSTALLER. ACTION INSTALLER was called and confirmed that last dose of Mounjaro was 2 weeks ago 10/31/23. Will proceed. Anesthesia Pre-Procedure Meds If Yes to any meds - educate patient: Pt education - increased risk of aspiration PMFSH Active Problems Active Problems: All Active Problems (Updated 11/10/23 @ 09:18 by Joanna Harding MD) Fungal skin infection (Acute) Abnormal mammogram of left breast (Acute) Abscess (Acute) Morbid obesity (Acute) BMI 43.2 Other and unspecified hyperlipidemia (Acute) Essential hypertension (Acute) Type 2 diabetes mellitus with unspecified complications (Acute) Chronic ITP (idiopathic thrombocytopenia) (Acute) Chronic ITP (idiopathic thrombocytopenia) (Acute) Chronic ITP (idiopathic thrombocytopenia) (Acute) Obesity due to excess calories (Acute) Atherosclerotic cardiovascular disease (Acute) Vitamin D deficiency (Acute) Obesity (BMI 30-39.9) (Acute) Dyslipidemia (Acute) Diabetic nephropathy associated with type 2 diabetes mellitus (Acute) 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 (Acute) Diabetes type 2, uncontrolled (Acute) Diabetes mellitus (Acute) Past Medical History Medical History CAD (coronary artery disease) Migraines Anxiety and depression IBS (irritable bowel syndrome) Sleep apnea Obesity due to excess calories Atherosclerotic cardiovascular disease Vitamin D deficiency Obesity (BMI 30-39.9) Dyslipidemia Diabetic nephropathy associated with type 2 diabetes mellitus 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 Diabetes type 2, uncontrolled Asthma Pernicious anemia Diabetes mellitus Fibromyalgia GERD (gastroesophageal reflux disease) Hypertension Adult hypothyroidism Family History Family History Mother Diabetes Sister Stomach cancer Father Brother Colon cancer Brother Pancreas cancer Family history of problems with anesthesia: No Surgical History Surgical History H/O colonoscopy Hx of cataract surgery H/O: hysterectomy History of Problems with Anesthesia: No Social History Social History Household Members: None Housing: Apartment Are you a primary patient centered care specialist to a significant other at home: No Do you presently have visiting nurse or other home services: No Alcohol intake: current Alcohol intake frequency: does not drink Patient Tobacco Use Status: Former Tobacco user Quit Date: Over 20 years ago Advance Directives: No Advance Directives Information Provided: Yes service: No Current occupational status: unemployed Current occupation: she lives with her . Meds Allergies Allergy/AdvReac Type Severity Reaction Status Date / Time ibuprofen [IBUPROFEN] Allergy Mild RASH Verified 11/10/23 09:25 Home Medications Medication Instructions Recorded Confirmed Last Taken Type artificial tears with lanolin eye 1 applic ophthalmic (eye) BEDTIME 07/18/20 11/06/23 Unknown History ointment cetirizine 10 mg tablet 10 mg PO DAILY 07/18/20 11/06/23 Unknown History clonazepam 1 mg tablet 1 mg PO BEDTIME 07/18/20 11/06/23 Unknown History cyanocobalamin (vitamin B-12) 1,000 mcg IM QMONTH 07/18/20 11/06/23 Unknown History 1,000 mcg/mL injection solution duloxetine 30 mg capsule,delayed 30 mg PO DAILY 07/18/20 11/06/23 Unknown History release hydrochlorothiazide 12.5 mg capsule 12.5 mg PO DAILY 07/18/20 11/06/23 Unknown History ketotifen fumarate 0.025 % (0.035 1 drp ophthalmic (eye) BID 07/18/20 11/06/23 Unknown History %) eye drops levothyroxine 137 mcg capsule 137 mcg PO DAILY 07/18/20 11/06/23 Unknown History (Tirosint) lisinopril 2.5 mg tablet 2.5 mg PO DAILY 07/18/20 11/06/23 Unknown History omeprazole 20 mg capsule,delayed 20 mg PO DAILY 07/18/20 11/06/23 Unknown History release quetiapine 100 mg tablet 100 mg PO BEDTIME 07/18/20 11/06/23 Unknown History acetaminophen 500 mg tablet 1,000 mg PO QID PRN Pain 08/25/20 11/06/23 Unknown History (Tylenol Extra Strength) dicyclomine 10 mg capsule 10 mg PO TID 12/11/20 11/06/23 Unknown History cyclobenzaprine 10 mg tablet 10 mg PO BEDTIME 12/26/20 11/06/23 Unknown History aspirin 81 mg tablet,delayed 81 mg PO DAILY 07/03/21 11/06/23 10/20/23 History release (Adult Low Dose Aspirin) cholecalciferol (vitamin D3) 50 50 mcg PO DAILY 07/03/21 11/06/23 Unknown History mcg (2,000 unit) capsule finasteride 5 mg tablet 5 mg PO DAILY 07/03/21 11/06/23 Unknown History omega-3 fatty acids 1,000 mg 1,000 mg PO DAILY 07/03/21 11/06/23 10/20/23 History capsule (Fish Oil Concentrate) zolpidem 10 mg tablet 10 mg PO BEDTIME 07/03/21 11/06/23 Unknown History Mounjaro 11/10/23 11/10/23 Unknown History Exam Height,Weight and Vital Signs: Height 4 ft 11 in Weight 97.069 kg Vital Signs Temp Pulse Resp BP Pulse Ox O2 Del Method 11/10/23 09:15 97.9 F 86 18 120/55 L 96 Room Air Pertinent Lab Results Pertinent Lab Results: Lab Results 11/10/23 Range/Units 09:10 WBC 8.1 (4.8-10.8) X10*3/uL RBC 5.07 (4.20-5.50) X10*6/uL Hgb 13.5 (12.0-16.0) g/dl Hct 41.5 (37.0-47.0) % MCV 81.9 (80.0-98.0) fL MCH 26.6 L (27.0-33.0) pg MCHC 32.5 (31.0-35.0) g/dl RDW 13.9 (11.0-16.0) % Plt Count 90 L D (160-400) X10*3/uL MPV Not Reportable Immature Gran % (Auto) 0.4 (0.0-0.4) % Neut % (Auto) 63.3 (45-73) % Lymph % (Auto) 21.9 (20-40) % [place] % (Auto) 10.7 (2-11) % Eos % (Auto) 3.0 (0-4) % Baso % (Auto) 0.7 (0-2) % Lymph # (Auto) 1.8 (1.2-4.9) X10*3/uL [place] # (Auto) 0.9 (0.1-1.2) X10*3/uL Eos # (Auto) 0.2 (0.0-0.4) X10*3/uL Baso # (Auto) 0.1 (0.0-0.2) X10*3/uL Abs Immat Gran (auto) 0.03 (0.00-0.03) X10*3/uL Absolute Neuts (auto) 5.1 (2.0-8.3) x10*3/uL Absolute Nucleated RBC 0.000 (0.0-0.012) X10*3/uL Nucleated RBC % (auto) 0.0 (0.0-0.2) /100WBC PT 12.4 (11.1-13.3) SEC INR 1.0 (0.9-1.1) Laboratory Last Values WBC 8.1 X10*3/uL (4.8-10.8) 11/10/23 09:10 RBC 5.07 X10*6/uL (4.20-5.50) 11/10/23 09:10 Hgb 13.5 g/dl (12.0-16.0) 11/10/23 09:10 Hct 41.5 % (37.0-47.0) 11/10/23 09:10 MCV 81.9 fL (80.0-98.0) 11/10/23 09:10 MCH 26.6 pg (27.0-33.0) L 11/10/23 09:10 MCHC 32.5 g/dl (31.0-35.0) 11/10/23 09:10 RDW 13.9 % (11.0-16.0) 11/10/23 09:10 Plt Count 90 X10*3/uL (160-400) L D 11/10/23 09:10 MPV Not Reportable 11/10/23 09:10 Immature Gran % (Auto) 0.4 % (0.0-0.4) 11/10/23 09:10 Neut % (Auto) 63.3 % (45-73) 11/10/23 09:10 Lymph % (Auto) 21.9 % (20-40) 11/10/23 09:10 [place] % (Auto) 10.7 % (2-11) 11/10/23 09:10 Eos % (Auto) 3.0 % (0-4) 11/10/23 09:10 Baso % (Auto) 0.7 % (0-2) 11/10/23 09:10 Lymph # (Auto) 1.8 X10*3/uL (1.2-4.9) 11/10/23 09:10 [place] # (Auto) 0.9 X10*3/uL (0.1-1.2) 11/10/23 09:10 Eos # (Auto) 0.2 X10*3/uL (0.0-0.4) 11/10/23 09:10 Baso # (Auto) 0.1 X10*3/uL (0.0-0.2) 11/10/23 09:10 Abs Immat Gran (auto) 0.03 X10*3/uL (0.00-0.03) 11/10/23 09:10 Absolute Neuts (auto) 5.1 x10*3/uL (2.0-8.3) 11/10/23 09:10 Absolute Nucleated RBC 0.000 X10*3/uL (0.0-0.012) 11/10/23 09:10 Nucleated RBC % (auto) 0.0 /100WBC (0.0-0.2) 11/10/23 09:10 PT 12.4 SEC (11.1-13.3) 11/10/23 09:10 INR 1.0 (0.9-1.1) 11/10/23 09:10 POC Glucose 141 mg/dL (60-115) H 11/10/23 09:06 Airway Mallampati Class: II TM Dist: >3cm Neck ROM: Full Loose/Missing/Broken Teeth: Yes (Poor dentition. Many missing. Many look broken?chipped but patient denies. Denies loose teeth) Heart: RRR Lungs: CTAB Assessment and Plan Assessment Anesthesia Assessment: Anesthesia Plan Discussed Final Anesthetic Review Family History of Problems with Anesthesia: No History of Problems with Anesthesia: No NPO: Yes ASA Class: III Final Preanesthetic Review: No Changes in Pt Med Stat, Meds/Allgs Chart Reviewed, Consent Obtained/Reviewed and Anes Risks/Benef Reviewed Patient Risk: Intermediate Procedure Risk: Low Assessment/Block/Sedation in SS: Assess/Block/Sedation-SS Anesthetic Plan Anesthetic Plan: MAC: and TIVA Disposition: Standard PACU
[2023-11-10] MEDS: Lactated Ringers 1,000 ML 100 ML IVCONT (08:39)
[2023-11-10 09:15] VITALS: BP 120/55; PULSE 86; RESP 18; TEMP 36.6; O2SAT 96; BMI 43.2
[2023-11-10 09:15] LABS: MANUAL DIFF FLAG NO
[2023-11-10 09:18] LABS: Basophils Absolute Auto 0.1 X10*3/uL (0.0-0.2); Basophils Percent Auto 0.7 % (0-2); Eosinophils Absolute Auto 0.2 X10*3/uL (0.0-0.4); Hematocrit 41.5 % (37.0-47.0); Hemoglobin 13.5 g/dl (12.0-16.0); Imm Gran Abs Auto 0.03 X10*3/uL (0.00-0.03); Imm Gran Pct Auto 0.4 % (0.0-0.4); Lymphocytes Absolute Auto 1.8 X10*3/uL (1.2-4.9); Lymphocytes Percent Auto 21.9 % (20-40); Mean Corpuscular HGB Conc 32.5 g/dl (31.0-35.0); Mean Corpuscular Hemoglobin 26.6 pg (27.0-33.0); Mean Corpuscular Volume 81.9 fL (80.0-98.0); Monocytes Absolute Auto 0.9 X10*3/uL (0.1-1.2); Monocytes Percent Auto 10.7 % (2-11); Neutrophils Absolute Auto 5.1 x10*3/uL (2.0-8.3); Neutrophils Percent Auto 63.3 % (45-73); Red Blood Count 5.07 X10*6/uL (4.20-5.50); Red Cell Distribution Width 13.9 % (11.0-16.0); White Blood Count 8.1 X10*3/uL (4.8-10.8)
[2023-11-10 09:20] LABS: Platelet Count 90 X10*3/uL (160-400)
[2023-11-10 09:26] LABS: Prothrombin Time 12.4 SEC (11.1-13.3)
[2023-11-10 09:35] LABS: Glucose, Whole Blood 141 mg/dL (60-115)
--- NOTE | 2023-11-10 10:04 | PC.NURSE ---
lab results at bedside. dr. taylor reviewed. ok to proceed.
--- NOTE | 2023-11-10 10:11 | PC.NURSE ---
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 okay to proceed.
--- NOTE | 2023-11-10 10:12 | PC.NURSE ---
Cornelius, buyer tobacco head, present when call made to HOME SPECIALIST.
[2023-11-10 11:14] VITALS: BP 124/70; PULSE 84; RESP 16; TEMP 36.9; O2SAT 95
--- NOTE | 2023-11-10 11:17 | PM.OP ---
Brief Operative Note Date of Service: 11/10/23 Pre-op diagnosis: Screening Post-op diagnosis: other (Diverticulosis) Procedure: Colonoscopy to the cecum Surgeon: Michael Robertson MD Anesthesia: MAC Was an Restaurant Assistant Manager used for this Procedure?: No Estimated blood loss (mL): 0 Pathology: none sent Condition: stable Disposition: PACU
[2023-11-10 11:28] VITALS: BP 128/63; PULSE 81; RESP 16; TEMP 36.9; O2SAT 94
--- NOTE | 2023-11-10 12:51 | OP_ITS ---
DATE OF SERVICE: 11/10/2023 SURGEON: Michael Robertson MD INDICATIONS: The patient presents for evaluation of colorectal cancer screening and family history of colon cancer. Full consent was obtained from her for this, including risks of bleeding and perforation. PREOPERATIVE DIAGNOSIS: POSTOPERATIVE DIAGNOSIS: PROCEDURE PERFORMED: Colonoscopy to the cecum. ESTIMATED BLOOD LOSS: COMPLICATIONS: ANESTHESIA: ASSISTANTS: SPECIMENS: PREOPERATIVE DIAGNOSES: Colorectal cancer screening and family history of colon cancer. POSTOPERATIVE DIAGNOSES: Colorectal cancer screening and family history of colon cancer, sigmoid diverticulosis, and internal hemorrhoids. PREOPERATIVE MEDICATION USED: Monitored anesthesia care. DESCRIPTION OF PROCEDURE: The patient was placed in the left lateral decubitus position. The digital rectal exam revealed no abnormalities. The Olympus video pediatric colonoscope was entered into the rectum and advanced easily to the cecum. Once in the cecum, I did identify normal-appearing cecal pouch with appendiceal orifice and a normal-appearing ileocecal valve. Of note, there was some residual stool in the cecum, which had to be irrigated and suctioned away. Ultimately good visualization was obtained including the appendiceal orifice and this all appeared normal. The ileocecal valve appeared normal. There was transillumination of light deep in the right lower quadrant. The scope was slowly withdrawn assessing all mucosal surfaces carefully. Preparation was for the most part good throughout the colon, although there were some areas of residual stool and liquid, which had to again be irrigated and suctioned away to allow visualization as best as possible. I did not visualize any polyps, colitis, nor angiodysplasia. There was a mild amount of sigmoid diverticulosis. In the rectum, scope was retroflexed visualizing small internal hemorrhoids, but no other pathology. The rectal mucosa appeared normal. The scope was straightened and withdrawn from the patient. She tolerated the procedure well and was returned to the recovery area in stable condition. IMPRESSION: 1. Diverticulosis. 2. Internal hemorrhoids. PLAN: Given her family history of her brother having had colon cancer, I would recommend a repeat colonoscopy in 5 years. She will otherwise see me on a p.r.n. basis. MD SARI Hernandez/CHRISTINA / [phone] MTDD
== END 2023-11-10 12:13 | disposition home or self-care (01) ==
PROVIDERS: PCP Family Medicine; Visit Provider Internal Medicine
PROC: 0DJD8ZZ Inspection of Lower Intestinal Tract, Via Natural or Artificial Opening Endoscopic (ICD-10-PCS; CPT 45378; principal; 2023-11-10 09:30)
DX: Z12.11 Encounter for screening for malignant neoplasm of colon (principal); Z80.0 Family history of malignant neoplasm of digestive organs; K57.30 Diverticulosis of large intestine without perforation or abscess without bleeding; K64.8 Other hemorrhoids; E11.9 Type 2 diabetes mellitus without complications; I10 Essential (primary) hypertension; E78.5 Hyperlipidemia, unspecified; D69.3 Immune thrombocytopenic purpura; E66.9 Obesity, unspecified; Z68.41 Body mass index [BMI] 40.0-44.9, adult; Z79.4 Long term (current) use of insulin; Z79.82 Long term (current) use of aspirin; Z79.02 Long term (current) use of antithrombotics/antiplatelets
CPT/HCPCS: 45378; 36415; 82947; 85025; 85610; J2250; J2704; J3010

== ENCOUNTER 2023-11-19 12:39 | Outpatient (REF) | payer MEDICAID, SELFPAY ==
--- NOTE | ~2023-11-19 | MM_ITS ---
EXAMINATION: MM DIAGNOSTIC DIGITAL BREAST TOMOSYNTHESIS, LEFT CLINICAL INFORMATION: Follow-up to benign left stereotactic biopsy 11:30 o'clock axis far posterior one third, with benign pathology. COMPARISON: Stereotactic biopsy 06/06/2023; mammography 06/02/2023, 05/02/2023, 07/29/2019, and 07/31/2012. TECHNIQUE: Digital left breast tomosynthesis is performed in both the craniocaudal and mediolateral oblique views along with computer-aided detection (CAD). Synthesized 2D images are generated from the tomosynthesis. In addition to standard views, 2-D spot magnification left CC x2, and ML x3 views were obtained. FINDINGS: There are scattered areas of fibroglandular density (ACR BI-RADS breast composition Category b). Within the extreme posterior left breast 11:30 o'clock axis, there is a top hat-shaped biopsy clip present from prior benign biopsy. There is only one remaining somewhat oval, benign-appearing microcalcification just inferior to the biopsy clip, appearing similar and unchanged from prior imaging. In addition, there are benign calcifications which are unchanged in the lower slightly medial left breast, mid to posterior one third, most likely fibroadenomatoid change. No suspicious masses, changing calcifications, or areas of architectural distortion left breast. No skin or axillary abnormality. MM/MM tomosynthesis diagnostic LT IMPRESSION: Stable benign findings left breast. Biopsy site shows no appreciable change in the far posterior 11:30 o'clock axis. No new or aggressive appearing microcalcifications. Recommend the patient resume routine annual screening mammography. ASSESSMENT: BI-RADS BI-RADS 2 - Benign Findings RECOMMENDATION: 1 year F/U Results were provided to the patient at time of visit by the technologist. This patient's information was entered into a reminder system with a target due date for their next mammogram.
== END 2023-11-19 12:40 | disposition home or self-care (01) ==
LOC: HO.MAMMO 12:39
PROVIDERS: PCP Family Medicine; Visit Provider Surgery
DX: R92.8 Other abnormal and inconclusive findings on diagnostic imaging of breast (principal)
CPT/HCPCS: 77061; 77065

== ENCOUNTER → 2023-11-19 13:00 | Outpatient (BNV) | payer MEDICAID, SELFPAY | PROVIDERS: PCP Family Medicine; Visit Provider Radiology Diagnostic Radiology | DX: R92.8 Other abnormal and inconclusive findings on diagnostic imaging of breast (principal) | CPT/HCPCS: 77061; 77065 ==

== ENCOUNTER 2024-04-09 14:15 | Emergency (ER) | payer MEDICAID, SELFPAY ==
--- NOTE | ~2024-04-09 | XR_ITS ---
EXAMINATION: XR SACRUM AND COCCYX CLINICAL INFORMATION: Pain. Injury. COMPARISON: 08/23/2016 TECHNIQUE: AP and lateral views of the sacrum and coccyx were obtained. FINDINGS: The sacrum is partially obscured by bowel and bowel contents. Sacroiliac joints and pubic symphysis are intact. Probable L5 spondylolysis. Calcification of the intervertebral disc at L4-L5. Facet hypertrophy at L4-L5 and L5-S1. The hip joints appear symmetric on the frontal projection. No displaced fracture or dislocation. XR/XR sacrum coccyx min 2V IMPRESSION: No acute abnormality.
--- NOTE | ~2024-04-09 | CT_ITS ---
EXAMINATION: CT CERVICAL SPINE WITHOUT CONTRAST CLINICAL INFORMATION: Fall. Head strike. COMPARISON: Cervical spine radiographs dated 11/24/2015. TECHNIQUE: Noncontrast computed tomography of the cervical spine was performed. This CT examination was performed using dose optimization techniques as appropriate, variously including the following: *Automated exposure control *Adjustment of mA and/or kV according to patient size (this includes techniques or standardized protocols for targeted exams where dose is matched to indication/reason for exam; i.e. extremities or head) *Use of iterative reconstruction technique DLP: 719 mGy-cm FINDINGS: The vertebral bodies and facet joints are anatomically aligned. Vertebral body heights are maintained. The C1-C2 relationship is anatomic. The dens is intact. There is no acute fracture. Intervertebral disc space heights are fairly well preserved. There are large bridging osteophytes at C4-C5, C5-C6, and C6-C7. The prevertebral soft tissue is normal in appearance. The paraspinal soft tissue is normal in appearance. The lung apices are clear. Thyroid gland is normal in appearance. The visualized brain parenchyma is normal in appearance. There is a small right mastoid air cell effusion. CT/CT cervical spine wo IV con IMPRESSION: No acute osseous cervical spine abnormality. Mild cervical spondylosis. Fleischner guidelines were followed.
--- NOTE | ~2024-04-09 | XR_ITS ---
EXAMINATION: XR LUMBOSACRAL SPINE CLINICAL INFORMATION: Pain. Injury. COMPARISON: Lumbar spine radiographs dated 11/24/2015. TECHNIQUE: Three views of the lumbosacral spine. FINDINGS: There is grade 1 anterolisthesis of L5 in relation to S1 in the setting of bilateral L5 pars defects. Vertebral body heights are maintained. There is mild narrowing of the L3-L4 and L4-L5 intervertebral disc spaces. There is facet arthropathy at L4-L5. There are vascular calcifications. The sacroiliac joints are maintained. XR/XR lumbar spine 2-3V IMPRESSION: No acute osseous lumbar spine abnormality. There is grade 1 anterolisthesis of L5 in relation to S1 in the setting of bilateral L5 pars defects. Mild lumbar spondylosis.
--- NOTE | ~2024-04-09 | CT_ITS ---
EXAMINATION: CT HEAD WITHOUT CONTRAST CLINICAL INFORMATION: Head strike. Fall. Pain. COMPARISON: None available. TECHNIQUE: Contiguous axial imaging was performed from the skull base to vertex without intravenous administration of contrast. This CT examination was performed using dose optimization techniques as appropriate, variously including the following: *Automated exposure control *Adjustment of mA and/or kV according to patient size (this includes techniques or standardized protocols for targeted exams where dose is matched to indication/reason for exam; i.e. extremities or head) *Use of iterative reconstruction technique DLP: 738 mGy-cm FINDINGS: There is no acute intracranial hemorrhage. There is no evidence of acute/subacute cerebral or cerebellar infarction. There is no midline shift or mass effect. No extra-axial fluid collection. The ventricles are normal in size. There is a partially empty, minimally expanded sella. The orbits are symmetric and within normal limits. The visualized paranasal sinuses are clear. There is a right mastoid air cell effusion. CT/CT head/brain wo IV con IMPRESSION: No acute intracranial pathology. Right mastoid air cell effusion.
[2024-04-09 14:16] VITALS: BP 171/87; PULSE 81; RESP 18; TEMP 36.4; O2SAT 96; BMI 44.6
--- NOTE | 2024-04-09 14:26 | ED.GENADULT ---
HPI - General Adult General Chief complaint: Fall Stated complaint: back pain Time Seen by Provider: 04/09/24 15:00 Source: patient Mode of arrival: ambulatory Limitations: no limitations History of Present Illness ED Provider: Kentrell CLOUD narrative: patient is a 58-year-old female presents to the emergency department for evaluation. She reports a mechanical trip and fall 2 days ago resulting in strike but no loss consciousness. She reports that over the past 2 days she has had progressive diffuse lower back pain and bilateral hip pain. She denies any numbness or tingling to the lower extremities, bladder bowel dysfunction, saddle paresthesias, urogenital symptoms. She denies any headache, dizziness, lightheadedness, vision changes, neck pain or neck stiffness. She has been taking ibuprofen without improvement, she is prescribed cyclobenzaprine for her fibromyalgia but she has not trialed taking this over the past few days. Related Data Home Medications ?Medication ?Instructions ?Recorded ?Confirmed artificial tears with lanolin eye 1 applic ophthalmic (eye) BEDTIME 07/18/20 03/05/24 ointment cetirizine 10 mg tablet 10 mg PO DAILY 07/18/20 03/05/24 clonazepam 1 mg tablet 1 mg PO BEDTIME 07/18/20 03/05/24 cyanocobalamin (vitamin B-12) 1,000 mcg IM QMONTH 07/18/20 03/05/24 1,000 mcg/mL injection solution duloxetine 30 mg capsule,delayed 30 mg PO DAILY 07/18/20 03/05/24 release hydrochlorothiazide 12.5 mg capsule 12.5 mg PO DAILY 07/18/20 03/05/24 ketotifen fumarate 0.025 % (0.035 1 drp ophthalmic (eye) BID 07/18/20 03/05/24 %) eye drops levothyroxine 137 mcg capsule 137 mcg PO DAILY 07/18/20 03/05/24 (Tirosint) lisinopril 2.5 mg tablet 2.5 mg PO DAILY 07/18/20 03/05/24 omeprazole 20 mg capsule,delayed 20 mg PO DAILY 07/18/20 03/05/24 release quetiapine 100 mg tablet 100 mg PO BEDTIME 07/18/20 03/05/24 acetaminophen 500 mg tablet 1,000 mg PO QID PRN Pain 08/25/20 03/05/24 (Tylenol Extra Strength) dicyclomine 10 mg capsule 10 mg PO TID 12/11/20 03/05/24 cyclobenzaprine 10 mg tablet 10 mg PO BEDTIME 12/26/20 03/05/24 aspirin 81 mg tablet,delayed 81 mg PO DAILY 07/03/21 03/05/24 release (Adult Low Dose Aspirin) cholecalciferol (vitamin D3) 50 50 mcg PO DAILY 07/03/21 03/05/24 mcg (2,000 unit) capsule finasteride 5 mg tablet 5 mg PO DAILY 07/03/21 03/05/24 omega-3 fatty acids 1,000 mg 1,000 mg PO DAILY 07/03/21 03/05/24 capsule (Fish Oil Concentrate) zolpidem 10 mg tablet 10 mg PO BEDTIME 07/03/21 03/05/24 Previous Rx's ?Medication ?Instructions ?Recorded alcohol swabs (Alcohol Prep Pads) 1 pad topical .6 times a day 30 01/09/22 days #200 ea pen needle, diabetic 32 gauge x #100 ea 01/09/2232 (BD Karla 2nd Gen Pen Needle) insulin NPH-regular 70-30 U-100 See Rx Instructions subcut .Twice 02/19/22 insulin 100 unit/mL subcutaneous a day 30 days #45 mL pen (Humulin 70/30 U-100 KwikPen) blood sugar diagnostic (FreeStyle #100 ea 06/28/22 Lite Strips) lancets 28 gauge (FreeStyle #100 ea 06/28/22 Lancets) ferrous sulfate 325 mg (65 mg 325 mg PO BID #120 tabs 05/01/23 iron) tablet (Ibeth-Time) ferrous sulfate 325 mg (65 mg 325 mg PO DAILY #90 tabs 09/22/23 iron) tablet atorvastatin 80 mg tablet 80 mg PO DAILY 90 days #90 tabs 10/16/23 nystatin 100,000 unit/gram topical 1 appl topical DAILY #15 grams 11/06/23 cream Allergies Allergy/AdvReac Type Severity Reaction Status Date / Time ibuprofen [IBUPROFEN] Allergy Mild RASH Verified 04/09/24 14:25 Review of Systems Review of Systems: Yes all other systems are reviewed and are negative PMFSH Past Medical History Attestation statement: The following information was validated with the patient. 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 Diabetes type 2, uncontrolled Asthma Pernicious anemia Diabetes mellitus Fibromyalgia GERD (gastroesophageal reflux disease) Hypertension Adult hypothyroidism Surgical History H/O colonoscopy Hx of cataract surgery H/O: hysterectomy Family History Family History Mother Diabetes Sister Stomach cancer Father Brother Colon cancer Brother Pancreas cancer Social History Social History Household Members: None Housing: Apartment Are you a primary patient centered care specialist to a significant other at home: No Do you presently have visiting nurse or other home services: No Alcohol intake: current Alcohol intake frequency: does not drink Patient Tobacco Use Status: Former Tobacco user Advance Directives: No Advance Directives Information Provided: No Do you have a plan to hurt others: No Plan service: No Current occupational status: unemployed Current occupation: she lives with her . Physical Exam ED Vital Signs: Vital Signs - 24 hr 04/09/24 14:16 Temperature 97.6 F Pulse Rate 81 Respiratory Rate 18 Blood Pressure 171/87 H Pulse Oximetry 96 Oxygen Delivery Method Room Air BMI result Body Mass Index 44.6 Appearance: Alert.?Oriented to person, place and time. No acute distress.?Normal affect. Head: normocephalic, atraumatic Eyes: Pupils equal, round and reactive to light.? EOMI. No nystagmus. No Periorbital ecchymosis ENT: Pharynx normal.?? TM normal bilaterally. Negative cannon sign. Neck: Normal inspection.? Neck supple.?? No midline cervical spine tenderness, step-offs, deformities. CVS: Heart sounds normal. Normal heart rate and rhythm.? Pulses normal.?? Respiratory: No respiratory distress.? Lung sounds clear to auscultation bilaterally?? Abdomen: Soft and non-tender. Normoactive bowel sounds. Skin: Skin warm and dry.? Normal skin color.? ? Back: bilateral paraspinal muscle tenderness in the lumbar the coccyx region. No midline tenderness, step-offs, deformities. No pain upon palpation of the bilateral SI joints. Full range of motion to the bilateral hips. Extremities: No lower extremity edema.? No calf ttp? Neuro: Moves all extremities spontaneously. Sensation intact bilaterally. CN II-XII intact. No focal neuro deficits. Ambulates with normal steady gait. Course Course Course Narrative: RME performed by Martina Ortez PA-C. Patient is a 58 year old assigned female at presenting to the emergency department with a fall and low back pain. Patient states 2 days ago she fell, hitting her head, stating that she is having bilateral hip pain and low back pain. Detailed physical exam and review of systems are deferred to the rn primary care. Imaging ordered. Patient placed back in the waiting room pending room availability and results. Medical Decision Making Medical Decision Making MDM Narrative: patient is a 58-year-old female with past medical history of CAD migraines IBS hypertension hypothyroidism, pernicious anemia, dyslipidemia, diabetes, asthma, fibromyalgia, GERD who presents emergency department for evaluation of traumatic lower back pain after mechanical fall with head strike but no loss of consciousness as per HPI. Overall she appears well, nontoxic, afebrile. She has no focal neurological deficits at the time of examination. Clinically have lower suspicion for ICH, SDH, skull fracture, subluxation, CT of the head and cervical spine were obtained prior to my assumption care and are without acute pathology. XR of the lumbar spine is without acute osseous abnormality, grade 1 anterolisthesis L5-S1 with mild spondylosis. These findings were discussed with patient. Unfortunately she is allergic to ibuprofen, would avoid NSAID, she is prescribed muscle relaxants she has not yet taken, she does have notable tenderness along the paraspinal muscles, I do think that this would be of benefit for her. I also spoke to her about following up with her primary care provider so that she may be referred for physical therapy. Exam findings are not consistent with cauda equina, no indication for emergent MRI/ CT. She has ambulatory with a steady gait. Stable for discharge home Differential Diagnosis Differential Diagnoses: The differential diagnosis associated with the presentation includes ( see narrative above) Admission/Observation Consideration of admission/observation: Escalation of care including admission/observation considered Independent Interpretation I performed an independent interpretation of an: Plain X-Ray ( no acute fracture of the lumbar spine) and CT Scan ( no ICH) Radiology Impression Discussion of test interpretation with radiology: I have reviewed the radiologist's reading. Radiologist Impression: XR/XR lumbar spine 2-3V IMPRESSION: No acute osseous lumbar spine abnormality. There is grade 1 anterolisthesis of L5 in relation to S1 in the setting of bilateral L5 pars defects. Mild lumbar spondylosis. XR/XR sacrum coccyx min 2V IMPRESSION: No acute abnormality. CT/CT head/brain wo IV con IMPRESSION: No acute intracranial pathology. Right mastoid air cell effusion. CT/CT cervical spine wo IV con IMPRESSION: No acute osseous cervical spine abnormality. Mild cervical spondylosis. Independent Historian Clinical information obtained from an independent historian. History obtained from or confirmed by: Other ( nonprofit manager) External Record Review External record reviewed: Outpatient record Prescription Management I considered prescription management with: Pain Medication ( see narrative above) Discharge Plan Discharge Clinical Impression: Lumbar spondylosis Patient Disposition: Home, Self-Care Instructions: Acute Low Back Pain (ED), Lower Back Exercises (ED) Additional Instructions: You can take Tylenol 500 mg, 2 tablets (1,000mg) every 4-6 hours as needed for pain, but not to exceed 3 doses daily (3,000mg).? take muscle relaxant, cyclobenzaprine as already prescribed 2. Follow-up with your primary care provider to discuss physical therapy. Return back to emergency department any new or worsening symptoms or concerns. Prescriptions: No Action (DME) pen needle, diabetic [BD Karla 2nd Gen Pen Needle] 32 gauge x 5/32 needle See Rx Instructions .MEDSUPPLY Qty: 100 11RF Rx Instructions: Twice a day alcohol swabs [Alcohol Prep Pads] Pads, Medicated 1 pad topical .6 times a day 30 Days Qty: 200 11RF (DME) FreeStyle Lite Strips Strip See Rx Instructions .ROUTE .MEDSUPPLY Qty: 100 11RF Rx Instructions: As directed four times a day (DME) lancets [FreeStyle Lancets] 28 gauge misc See Rx Instructions .ROUTE .MEDSUPPLY Qty: 100 11RF Rx Instructions: 4 times a day ferrous sulfate 325 mg (65 mg iron) Tablet 325 mg PO DAILY Qty: 90 6RF atorvastatin 80 mg tablet 80 mg PO DAILY 90 Days Qty: 90 0RF Rx Instructions: OVERDUE FOR APPT. PLEASE CALL [phone] TO SCHEDULE AN APPT SO WE CAN REFILL THIS MED. You can also opt to get future refills from your PCP. Thank you. cetirizine 10 mg Tablet 10 mg PO DAILY ketotifen fumarate 0.025 % (0.035 %) Drops 1 drp OPHTHALMIC (EYE) BID clonazepam 1 mg Tablet 1 mg PO BEDTIME quetiapine 100 mg Tablet 100 mg PO BEDTIME cyanocobalamin (vitamin B-12) 1,000 mcg/mL Solution 1,000 mcg IM QMONTH hydrochlorothiazide 12.5 mg Capsule 12.5 mg PO DAILY omeprazole 20 mg Capsule,Delayed Release(Dr/Ec) 20 mg PO DAILY lisinopril 2.5 mg Tablet 2.5 mg PO DAILY duloxetine 30 mg Capsule,Delayed Release(Dr/Ec) 30 mg PO DAILY Akwa Tears Ointment 1 applic OPHTHALMIC (EYE) BEDTIME levothyroxine [Tirosint] 137 mcg Capsule 137 mcg PO DAILY acetaminophen [Tylenol Extra Strength] 500 mg Tablet 1,000 mg PO QID PRN (Reason: Pain) dicyclomine 10 mg Capsule 10 mg PO TID ferrous sulfate [Ibeth-Time] 325 mg (65 mg iron) Tablet 325 mg PO BID Qty: 120 4RF cyclobenzaprine 10 mg tablet 10 mg PO BEDTIME zolpidem 10 mg tablet 10 mg PO BEDTIME cholecalciferol (vitamin D3) 50 mcg (2,000 unit) capsule 50 mcg PO DAILY omega-3 fatty acids [Fish Oil Concentrate] 1,000 mg capsule 1,000 mg PO DAILY finasteride 5 mg tablet 5 mg PO DAILY aspirin [Adult Low Dose Aspirin] 81 mg tablet,delayed release (DR/EC) 81 mg PO DAILY Humulin 70/30 U-100 KwikPen 100 unit/mL (70-30) insulin pen See Rx Instructions subcut .Twice a day 30 Days Qty: 45 5RF Rx Instructions: 100 units before breakfast and 60units before dinner subcut .Twice a day; nystatin 100,000 unit/gram cream 1 appl topical DAILY Qty: 15 0RF Rx Instructions: Applied to bilateral groins daily Referrals: Katelynn Guzman MD [Primary Care Provider] - Print Language: Malaysian
[2024-04-09 16:47] VITALS: BP 131/55; PULSE 76; RESP 18; TEMP 36.4; O2SAT 96
[2024-04-09 17:38] VITALS: BP 131/55; PULSE 76; RESP 18; TEMP 36.4; O2SAT 96
== END 2024-04-09 17:38 | disposition home or self-care (01) ==
PROVIDERS: Emergency Provider Emergency Medicine; PCP Family Medicine
DX: M54.50 Low back pain, unspecified (principal); M25.552 Pain in left hip; M25.551 Pain in right hip; M54.2 Cervicalgia; R51.9 Headache, unspecified; Z79.899 Other long term (current) drug therapy
CPT/HCPCS: 70450; 72100; 72125; 72220; 99283; 99284

== ENCOUNTER 2024-05-13 12:32 | Outpatient (REF) | payer MEDICAID, SELFPAY ==
--- NOTE | ~2024-05-13 | MM_ITS ---
EXAMINATION: MM SCREENING DIGITAL BREAST TOMOSYNTHESIS, BILATERAL CLINICAL INFORMATION: Screening. Asymptomatic. COMPARISON: Mammography: This study is compared with prior exams dating back to 2019. TECHNIQUE: Digital breast tomosynthesis is performed in both the craniocaudal and mediolateral oblique views along with computer-aided detection (CAD). Synthesized 2D images are generated from the tomosynthesis. FINDINGS: There are scattered areas of fibroglandular density (ACR BI-RADS breast composition Category b). There are no significant masses, abnormal calcifications, or other abnormalities. There is tissue marker present in the left breast from prior benign percutaneous biopsy. There are a few, coarse, benign calcifications in each breast which are benign. MM/MM tomosynthesis screening BI IMPRESSION: No mammographic evidence of malignancy. ASSESSMENT: BI-RADS BI-RADS 2 - Benign Findings RECOMMENDATION: Routine annual mammography screening. 1 year F/U This examination should not preclude the clinical evaluation of a suspicious palpable abnormality. This patient's information was entered into a reminder system with a target due date for their next mammogram. Electronically signed by: Fanta Guardado MD 06/11/2024 11:59 AM EDT
== END 2024-05-13 12:33 | disposition home or self-care (01) ==
LOC: HO.MAMMO 12:32
PROVIDERS: PCP Family Medicine; Visit Provider Family Medicine
DX: Z12.31 Encounter for screening mammogram for malignant neoplasm of breast (principal)
CPT/HCPCS: 77063; 77067

== ENCOUNTER → 2024-05-13 13:00 | Outpatient (BNV) | payer MEDICAID, SELFPAY | PROVIDERS: PCP Family Medicine; Visit Provider Radiology Diagnostic Radiology | DX: Z12.31 Encounter for screening mammogram for malignant neoplasm of breast (principal) | CPT/HCPCS: 77063; 77067 ==

== ENCOUNTER 2024-06-07 18:33 | Inpatient (IN) | payer MEDICAID, SELFPAY ==
--- NOTE | ~2024-06-07 | CT_ITS ---
EXAMINATION: CT SOFT TISSUE NECK WITH CONTRAST CLINICAL INFORMATION: Fever and throat pain. COMPARISON: None available. TECHNIQUE: Following intravenous administration of 65 mL of Omnipaque 350 contrast, helical imaging was performed in the axial plane with generation of coronal and sagittal reformatted images. This CT examination was performed using dose optimization techniques as appropriate, variously including the following: *Automated exposure control *Adjustment of mA and/or kV according to patient size (this includes techniques or standardized protocols for targeted exams where dose is matched to indication/reason for exam; i.e. extremities or head) *Use of iterative reconstruction technique DLP: 984 mGy-cm FINDINGS: There is focal calcification of the longus colli musculature at the C1-C2 level with dystrophic calcification visible in the midline along the undersurface of the anterior arch of C1. Additionally, there is a mild reactive retropharyngeal effusion without mass effect or peripheral enhancement. No contour or malalignment or pathologic enhancement is seen within the oral cavity. The pharyngeal galeano are normal in appearance. No peritonsillar abscess is seen. The parapharyngeal fat space is normal. There is incidental elongation of the styloid processes bilaterally. No cervical adenopathy is identified. The parotid and submandibular glands are normal. The carotid sheath vasculature opacifies normally. The thyroid gland is diminutive and not well seen. The airway is normally maintained. Bulky bridging anterior endplate ossification at the C4-C5 level distorts the posterior pharyngeal wall to the left of midline. Mild atherosclerotic wall calcifications visible in the mediastinum. The imaged portions of the lungs are clear. Multiple dental caries are visible. The paranasal sinuses, middle ear cavities, and mastoid air cells are clear. The visualized orbits are unremarkable. The imaged portions of the brain demonstrate no acute abnormality. 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 Electronically signed by: Daniel Ramsey MD 06/08/2024 04:36 PM EDT
--- NOTE | ~2024-06-07 | CT_ITS ---
EXAMINATION: CT HEAD WITHOUT CONTRAST CLINICAL INFORMATION: Immunosuppression. Infectious source. COMPARISON: PET/CT dated 04/09/2024. TECHNIQUE: Contiguous axial imaging was performed from the skullbase to vertex without intravenous administration of contrast. This CT examination was performed using dose optimization techniques as appropriate, variously including the following: *Automated exposure control *Adjustment of mA and/or kV according to patient size (this includes techniques or standardized protocols for targeted exams where dose is matched to indication/reason for exam; i.e. extremities or head) *Use of iterative reconstruction technique DLP: 949.7 mGy-cm. FINDINGS: There is no evidence of acute intracranial hemorrhage or territorial infarction. No abnormal mass effect or midline shift is seen. Swenson to white matter differentiation is well preserved. No extra-axial fluid collections are identified. Mild to moderate chronic white matter microangiopathy is again seen. Moderate diffuse brain parenchymal volume loss is again visible with commensurate ex vacuo prominence of the ventricles. The osseous structures and soft tissues are normal. The mastoid air cells and visualized portions of the paranasal sinuses are well aerated. CT/CT head/brain wo IV con IMPRESSION: No acute intracranial pathology. Moderate diffuse brain parenchymal volume loss and mild to moderate chronic white matter microangiopathy. Electronically signed by: Daniel Ramsey MD 06/09/2024 05:21 PM EDT
--- NOTE | ~2024-06-07 | FL_ITS ---
FLUOROSCOPIC LUMBAR PUNCTURE Indication: Fevers/headache, and immunosuppression Risks and benefits and possible complications were discussed with the patient and the consent form was signed. Patient was placed in the left lateral decubitus position on the fluoroscopy table. The back was prepped and draped in routine sterile fashion. Betadine was used as a skin antiseptic. Utilizing fluoroscopic guidance, the L2-3 interlaminar space was accessed with a 5 inch, 22 gague quinkie spinal needle and clear CSF fluid was obtained. Opening pressure was 36 cm H2O. 10 cc of fluid was sent for analysis. The needle was removed without immediate complications. Total fluoroscopy time: 1.6 min FL/FL guided lumbar puncture LP Impression: Successful fluoroscopic guided lumbar puncture at L2-L3. Opening pressure was 36 cm H2O. This procedure was performed by Claus Cole PA-C and supervised by Dr. Mathew. Electronically signed by: Reynaldo Mathew MD 06/10/2024 03:46 PM EDT
--- NOTE | ~2024-06-07 | XR_ITS ---
EXAMINATION: XR CHEST CLINICAL INFORMATION: Cough, dysphagia. COMPARISON: Chest radiograph 07/29/2019. TECHNIQUE: 2 views of the chest were obtained. FINDINGS: Enlarged cardiomediastinal silhouette, significantly increased since 2019. Bibasilar consolidative airspace opacities and small bilateral pleural effusions. No significant pneumothorax. No acute osseous findings. Thoracic spondylosis. Degenerative arthrosis of the shoulders with left greater than right decreased acromiohumeral intervals suggesting rotator cuff disease. XR/XR chest 2V IMPRESSION: 1. Enlarged cardiomediastinal silhouette, significantly increased since 2019. Recommend correlation with already ordered CT chest that would be dictated separately. 2. Bibasilar consolidative airspace opacities and small bilateral pleural effusions. These findings are nonspecific and could be related with atelectasis, aspiration or pneumonia. Electronically signed by: Chasity Vasquez MD 06/09/2024 05:35 PM EDT
--- NOTE | ~2024-06-07 | US_ITS ---
EXAMINATION: US TRIPLEX LOWER EXTREMITY, LEFT CLINICAL INFORMATION: Pain COMPARISON: None available. TECHNIQUE: Color-flow triplex imaging with spectral analysis and compression Doppler were performed on the left lower extremity. FINDINGS: Respiratory variation, normal compression and augmented flow are noted throughout the left lower extremity. The visualized common femoral vein, superficial femoral vein, profunda femoral vein, popliteal vein and visualized tibial venous segments show no evidence of deep venous thrombosis. The peroneal vein was not visualized. There is a left-sided Cai's cyst present measuring 2.4 x 0.6 x 1.7 cm. US/US venous duplex LE LT IMPRESSION: No evidence of deep venous thrombosis involving the left lower extremity. Electronically signed by: Mark Burroughs MD 06/08/2024 12:10 AM EDT
--- NOTE | ~2024-06-07 | CT_ITS ---
EXAMINATION: CT CHEST, ABDOMEN, AND PELVIS WITH CONTRAST CLINICAL INFORMATION: Immunosuppressed. Infectious source. COMPARISON: No prior chest CT. CT scans of the abdomen and pelvis dating between September 22, 2018 and March 10, 2009. TECHNIQUE: Multidetector volumetric CT imaging of the chest, abdomen, and pelvis was obtained after the administration of 85 mL of Omnipaque 350 intravenous contrast without immediate adverse reactions. Axial MIP volume rendering provided. Sagittal and coronal reformatted images were obtained. This CT examination was performed using dose optimization techniques as appropriate, variously including the following: *Automated exposure control *Adjustment of mA and/or kV according to patient size (this includes techniques or standardized protocols for targeted exams where dose is matched to indication/reason for exam; i.e. extremities or head) *Use of iterative reconstruction technique DLP: 845 mGy-cm FINDINGS: LUNGS/PLEURA: Trace bilateral pleural fluid. Bilateral dependent airspace disease, worse at the bases, consistent with consolidative infiltrates and/or atelectasis. Patent central bronchi. MEDIASTINUM: Mild cardiomegaly. No pericardial effusion. No evidence of mediastinal or hilar adenopathy by size criteria. Normal-appearing thyroid. CORONARY ARTERY CALCIFICATION: Mild. AXILLA: 1.2 cm less right axillary lymph nodes. No left axillary adenopathy identified by size criteria. LIVER, GALLBLADDER, AND BILIARY TREE: The liver measures approximately 18 cm in sagittal dimension. Suspect fatty infiltration. Unremarkable hepatic contour. No focal hepatic lesion or biliary ductal dilatation is appreciated. Unremarkable appearance of the gallbladder. PANCREAS: Unremarkable SPLEEN: Unremarkable ADRENAL GLANDS: Unremarkable KIDNEYS AND URETERS: The kidneys appear unremarkable in size, shape, and attenuation. No hydronephrosis, hydroureter, or calculi seen. BLADDER: Question layering debris within the urinary bladder versus artifact. No evidence of thickening of the wall urinary bladder nor of adjacent inflammatory changes. GASTROINTESTINAL TRACT: Tip of rectal probe lies within the rectum. The stomach, small and large bowel otherwise appear unremarkable. No diverticulosis. Normal-appearing distal ileum and vermiform appendix. ABDOMINAL WALL: No significant hernia is appreciated. LYMPH NODES: No evidence of adenopathy by size criteria. VASCULAR: Vascular tortuosity, suggesting hypertension. PELVIC VISCERA: Status post hysterectomy. OSSEOUS STRUCTURES: No acute finding. Bilateral spondylolysis at L5-S1, without significant spondylolisthesis. CT/CT abdomen pelvis w IV con IMPRESSION: Trace bilateral pleural fluid. Bilateral dependent airspace disease, worse at the bases, consistent with consolidative infiltrates and/or atelectasis. Question layering debris within the urinary bladder versus artifact. No evidence of thickening of the wall urinary bladder nor of adjacent inflammatory changes. Recommend clinical correlation. Mild right axillary adenopathy. Recommend clinical correlation and follow-up as clinically indicated. Additional findings, as above. Electronically signed by: Alli Brewer MD 06/09/2024 06:48 PM EDT RP
[2024-06-07 19:12] VITALS: BP 130/52; BP 148/72; PULSE 80; PULSE 82; RESP 16; TEMP 36.8; O2SAT 95; O2SAT 96; BMI 47.4
--- NOTE | 2024-06-07 19:24 | ED.GENADULT ---
HPI - General Adult General Chief complaint: General Medical Stated complaint: BODY PAINS Time Seen by Provider: 06/07/24 19:10 Source: patient and EMS Mode of arrival: EMS Limitations: language barrier History of Present Illness HPI narrative: Patient is a 58-year-old female who presents to the emergency department via EMS. She states that she awoke this morning with a pain in her left lower leg. She felt as though she could not get out of bed due to her degree of pain. States that she ate breakfast in bed and soon after developed pain to her entire body with diffuse body weakness. she feels nauseous but denies any vomiting, abdominal pain, diarrhea, constipation, urinary frequency, dysuria. She denies any precipitating fall or injury that would have brought on this pain. She denies associated shortness of breath. Related Data Home Medications ?Medication ?Instructions ?Recorded ?Confirmed cetirizine 10 mg tablet 10 mg PO DAILY 07/18/20 06/08/24 clonazepam 1 mg tablet 1 mg PO BID 07/18/20 06/08/24 cyanocobalamin (vitamin B-12) 1,000 mcg IM QMONTH 07/18/20 06/08/24 1,000 mcg/mL injection solution levothyroxine 137 mcg capsule 137 mcg PO DAILY@0600 07/18/20 06/08/24 (Tirosint) lisinopril 2.5 mg tablet 2.5 mg PO DAILY 07/18/20 06/08/24 omeprazole 20 mg capsule,delayed 20 mg PO DAILY 07/18/20 06/08/24 release acetaminophen 500 mg tablet 1,000 mg PO QID PRN Pain 08/25/20 06/08/24 (Tylenol Extra Strength) dicyclomine 10 mg capsule 20 mg PO TID 12/11/20 06/08/24 cyclobenzaprine 10 mg tablet 10 mg PO BEDTIME PRN Muscle Spasms 12/26/20 06/08/24 aspirin 81 mg tablet,delayed 81 mg PO DAILY 07/03/21 06/08/24 release (Adult Low Dose Aspirin) cholecalciferol (vitamin D3) 50 50 mcg PO DAILY 07/03/21 06/08/24 mcg (2,000 unit) capsule zolpidem 10 mg tablet 10 mg PO BEDTIME 07/03/21 06/08/24 betamethasone, augmented 0.05 % 1 appl topical DAILY PRN Flares 06/08/24 06/08/24 topical ointment clobetasol 0.05 % topical ointment 1 appl topical BID PRN Itchiness 06/08/24 06/08/24 duloxetine 20 mg capsule,delayed 40 mg PO BEDTIME 06/08/24 06/08/24 release glucagon 3 mg/actuation nasal 3 mg intranasal DIRECTED 06/08/24 06/08/24 spray (Baqsimi) hydrochlorothiazide 12.5 mg tablet 12.5 mg PO DAILY 06/08/24 06/08/24 insulin glargine U-300 conc 300 120 unit subcut DAILY 06/08/24 06/08/24 unit/mL (3 mL) subcutaneous pen (Toujeo Max U-300 SoloStar) insulin lispro 100 unit/mL 1 sliding scale dose subcut 06/08/24 06/08/24 subcutaneous pen USEASDIRECTD ketotifen fumarate 0.025 % (0.035 1 drp ophthalmic (eye) BID PRN 06/08/24 06/08/24 %) eye drops (Eye Itch Relief) Itchiness quetiapine 300 mg tablet 300 mg PO BEDTIME 06/08/24 06/08/24 sennosides 8.6 mg tablet (senna) 8.6 mg PO DAILY 06/08/24 06/08/24 tacrolimus 0.1 % topical ointment 1 appl topical BID PRN Flares 06/08/24 06/08/24 tirzepatide 5 mg/0.5 mL 10 mg subcut QWEEK 06/08/24 06/08/24 subcutaneous pen injector (Shun) Previous Rx's ?Medication ?Instructions ?Recorded pen needle, diabetic 32 gauge x #100 ea 01/09/22 (BD Karla 2nd Gen Pen Needle) blood sugar diagnostic (FreeStyle #100 ea 06/28/22 Lite Strips) lancets 28 gauge (FreeStyle #100 ea 06/28/22 Lancets) ferrous sulfate 325 mg (65 mg 325 mg PO DAILY #90 tabs 09/22/23 iron) tablet atorvastatin 80 mg tablet 80 mg PO DAILY 90 days #90 tabs 10/16/23 ondansetron 8 mg disintegrating 8 mg PO Q8H #30 tabs 05/28/24 tablet cefuroxime axetil 250 mg tablet 250 mg PO BID #12 tabs 06/08/24 Allergies Allergy/AdvReac Type Severity Reaction Status Date / Time ibuprofen [IBUPROFEN] Allergy Mild RASH Verified 06/07/24 19:14 Review of Systems Review of Systems: Yes all other systems are reviewed and are negative [facility] Past Medical History Attestation statement: The following information was validated with the patient. 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 Diabetes type 2, uncontrolled Asthma Pernicious anemia Diabetes mellitus Fibromyalgia GERD (gastroesophageal reflux disease) Hypertension Adult hypothyroidism Surgical History H/O colonoscopy Hx of cataract surgery H/O: hysterectomy Family History Family History Mother Diabetes Sister Stomach cancer Father Brother Colon cancer Brother Pancreas cancer Social History Social History Household Members: None Housing: Apartment Are you a primary home health caregiver to a significant other at home: No Do you presently have visiting nurse or other home services: No Alcohol intake: current Alcohol intake frequency: does not drink Patient Tobacco Use Status: Former Tobacco user Smoked in Last 30 Days: No Use of substances other than those prescribed or required for medical reasons: No Advance Directives: No Advance Directives Information Provided: No Patient : No service: No Current occupational status: unemployed Current occupation: she lives with her . Physical Exam ED Vital Signs: Vital Signs - 24 hr 06/07/24 19:12 06/08/24 00:33 06/08/24 01:41 Temperature 98.2 F 98.8 F Pulse Rate 80 98 Respiratory Rate 16 20 17 Blood Pressure 148/72 H 147/65 H Pulse Oximetry 96 96 Oxygen Delivery Method Room Air Room Air 06/08/24 02:26 06/08/24 04:14 06/08/24 06:11 Temperature 99.1 F 97.4 F 99.2 F Pulse Rate 96 100 102 H Respiratory Rate 16 12 14 Blood Pressure 148/59 H 148/60 H 133/55 L Pulse Oximetry 97 97 96 Oxygen Delivery Method Room Air Room Air Room Air 06/08/24 06:34 06/08/24 08:37 06/08/24 10:30 Temperature 100.8 F H 98.4 F 98.1 F Pulse Rate 106 H 111 H Respiratory Rate 14 16 Blood Pressure 135/51 L 125/65 Pulse Oximetry 93 92 Oxygen Delivery Method Room Air Room Air 06/08/24 11:07 06/08/24 11:35 06/08/24 12:00 Temperature 98.5 F 101.3 F H 98.8 F Pulse Rate 112 H 112 H 116 H Respiratory Rate 18 24 H 22 H Blood Pressure 133/59 L 119/53 L 119/56 L Pulse Oximetry 96 96 92 Oxygen Delivery Method Room Air Room Air Room Air 06/08/24 12:05 06/08/24 13:05 06/08/24 14:00 Temperature 98.4 F Pulse Rate 119 H 119 H Respiratory Rate 24 H 16 17 Blood Pressure 126/62 127/55 L Pulse Oximetry 94 92 Oxygen Delivery Method Room Air 06/08/24 14:22 06/08/24 15:47 Temperature 100.8 F H Pulse Rate 119 H 115 H Respiratory Rate 20 29 H Blood Pressure 123/57 L 126/55 L Pulse Oximetry 94 88 L Oxygen Delivery Method Room Air Room Air BMI result Body Mass Index 46.3 Appearance: Alert.?Oriented to person, place and time. No acute distress.? Eyes: Pupils equal, round and reactive to light.??? Neck: Normal inspection.? Neck supple.?? CVS: Heart sounds normal. Normal heart rate and rhythm.? Pulses normal.?? Respiratory: No respiratory distress.? Lung sounds clear to auscultation bilaterally?? Abdomen: Soft and non-tender. Normoactive bowel sounds. Skin: Skin warm and dry.? Normal skin color.? Extremities: bilteral lower extremity edema.? Neuro: Moves all extremities spontaneously. Sensation intact bilaterally. CN II-XII intact. No focal neuro deficits. Course Reevaluation(s) Reevaluation #1: CBC reveals leukocytosis with left shift, urinalysis indicating UTI for which she was treated with Rocephin. Chronic thrombocytopenia consistent with baseline. Patient found to have hypomagnesemia, which was replaced with 2 g IV, prolonged QTC 472 EKG revealing normal sinus rhythm with ventricular rate of 93, no ST elevation, no ST depression. Patient denies having diarrhea, it is unclear to me which medications she is taking in whether her hypomagnesemia is a medication side effect. I do see in the past that she has been on antihypertensives including diuretics but it is unclear whether she is still taking these she nor her family members at bedside are unable to tell me any medications that she is taking. Based on her pharmacy records I can see that she has most recently been prescribed a course of prednisone in April and Mounjaro in February with no additional medications in her record. On review of her HOTEL SECURITY OFFICER on 05/26/2024 she picked up prescription for Ambien and Klonopin. She received oxycodone for pain which she reports absolutely no relief from. Continues to report 10/10 diffuse body pain. Will trial additional management with morphine at this time. Reevaluation #2: Patient reporting no improvement in pain with morphine, discussed this case with ED attending Dr. Petersen, signed out care at the end of shift pending further management and re-evaluation. Time: 02:44 Reevaluation #3: Patient now with fever to 100.8 was treated for UTI. All her extremities are swollen will add blood cx, lactic acid repeat chem 7, sed rate and crp. Will give IV morphine for pain will sign patient out to Dr. Major Time: 08:20 Additional Reevaluation(s): 06/08/2024 Dr. Jeet Major's Notes: 12:02 hours I assumed care of this patient from my colleague, Dr. Petersen at 06:00 hours. Patient presented to the emergency department for evaluation of swelling of her entire body with diffuse joint pain, fever, sore throat with her symptoms starting yesterday morning. The patient has had nausea with no vomiting but loss of appetite. Patient was getting chemotherapy for ITP Mt dysplastic disorder and she states that her last dose of chemotherapy was on 06/04/2024 (4 days prior). Patient[place] [address] [place] [address]. Patient had elevated CRP of 16.94 and an elevated ESR of 23. Her urine was positive for protein trace positive for leukocyte esterase with 3-5 WBCs 6-10 RBCs and 2+ bacteria. Patient was given ceftriaxone 1 g IV. Patient was also treated with morphine 4 mg IV, 2 mg IV and oxycodone 5 mg orally with only minimal relief for pain. I did order Dilaudid 1 mg IV. On my examination the patient has significant tenderness with palpation of all of her joints. At this time I do not think that she can be discharged home. Not certain if the patient's joint inflammation is related to an infectious process, flare-up of her arthritis or secondary to her chemotherapy. I will discuss presentation with the covering jacket changer, Dr. Ernst. 12:49 I did discuss the patient's presentation over tiger text with the covering hematology oncologist, Dr. Ernst. She felt that the patient has diffuse arthralgias could be secondary to serum sickness caused by the rituximab or caused by the urinary tract infection. She recommended steroids and I ordered Solu-Medrol 60 mg IV. The patient did have a fever and was unable to swallow Tylenol tablets secondary to throat pain. Patient does have red lesions on the back of her throat which I believe may be secondary to her chemotherapy. Patient was ordered to get liquid Tylenol. I did discuss admission over tiger text with the covering hospitalist Dr. Zeus Wilkes and the patient will be admitted for further management 14:00 The patient's lactic acid continues to go up despite receiving IV fluid. At this time I do not think that the patient has sepsis but she may have serum sickness which is causing her illness. I did discuss this with Dr. Ramos, given the fact that she may be immunocompromised and she was getting biologic agents we will get a chest x-ray to rule out pneumonia. We will broaden the patient's antibiotic coverage with cefepime and vancomycin. 14:26 Patient was seen by the hospitalist, Dr. Ramos who was concerned that the patient may have parapharyngeal abscess/parotitis therefore I ordered a CT scan soft tissue neck. Medications Administered Generic Name Dose Route Start Last Admin Trade Name Freq PRN Reason Stop Dose Admin Sodium Chloride 3 ml 06/08/24 16:00 06/08/24 15:30 0.9 % Sodium Chloride Flush 3 Ml Syringe IVFLUSH Not Given QSHIFT LANE Discontinued Medications Generic Name Dose Route Start Last Admin Trade Name Freq PRN Reason Stop Dose Admin Acetaminophen 975 mg 06/08/24 12:08 06/08/24 12:13 Acetaminophen 325 Mg Tablet PO 06/08/24 12:09 975 mg ONCE STA Administration Acetaminophen 650 mg 06/08/24 12:21 06/08/24 12:32 Acetaminophen Oral Liquid 650 Mg/20.3 Ml Solution PO 06/08/24 12:22 650 mg ONCE ONE Administration Hydromorphone HCl 1 mg 06/08/24 11:56 06/08/24 12:05 Hydromorphone Hcl 1 Mg/Ml Syringe IVPUSH 06/08/24 11:57 1 mg ONCE STA Administration Protocol Magnesium Sulfate 2 gm in 50 mls @ 25 mls/hr 06/07/24 21:24 06/07/24 23:37 Magnesium Sulfate/H2o IV 06/07/24 23:23 Infused ONCE ONE Infusion Ceftriaxone Sodium 1 gm/ 50 mls @ 100 mls/hr 06/08/24 00:11 06/08/24 01:31 Sodium Chloride IV 06/08/24 00:40 Infused ONCE ONE Infusion Lactated Ringer's 1,000 mls @ 999 mls/hr 06/08/24 10:43 06/08/24 13:05 Lr IV 06/08/24 11:43 Infused .Q1H1M STA Infusion Lactated Ringer's 1,000 mls @ 1,400 mls/hr 06/08/24 10:54 06/08/24 13:05 Lr IV 06/08/24 11:36 Infused .Q43M STA Infusion Magnesium Sulfate 2 gm in 50 mls @ 25 mls/hr 06/08/24 13:56 06/08/24 14:18 Magnesium Sulfate/H2o IV 06/08/24 15:55 25 mls/hr ONCE ONE Administration Cefepime HCl 2 gm/ Sodium 50 mls @ 100 mls/hr 06/08/24 14:02 06/08/24 15:28 Chloride IV 06/08/24 14:31 Infused ONCE ONE Infusion Vancomycin HCl 2,000 mg in 500 mls @ 250 mls/hr 06/08/24 14:02 06/08/24 14:18 Vancomycin/Ns IV 06/08/24 16:01 250 mls/hr ONCE ONE Administration Iohexol 60 ml 06/08/24 15:07 06/08/24 15:07 Iohexol 350 Mg/Ml 50 Ml Infus..Btl IV 06/08/24 15:08 60 ml ONCE ONE Administration Methylprednisolone Sodium Succinate 60 mg 06/08/24 12:50 06/08/24 13:03 Methylprednisolone Sod Succ 125 Mg/2 Ml Vial IVPUSH 06/08/24 12:51 60 mg ONCE ONE Administration Morphine Sulfate 2 mg 06/08/24 01:00 06/08/24 01:41 Morphine Sulfate 2 Mg/Ml Cartridge IVPUSH 06/08/24 01:01 2 mg ONCE ONE Administration Protocol Morphine Sulfate 4 mg 06/08/24 08:21 06/08/24 09:19 Morphine Sulfate 4 Mg/Ml Cartridge IVPUSH 06/08/24 08:22 4 mg ONCE ONE Administration Protocol Ondansetron HCl 4 mg 06/07/24 22:57 06/07/24 23:10 Ondansetron Hcl 4 Mg/2 Ml Vial IVPUSH 06/07/24 22:58 4 mg ONCE ONE Administration Oxycodone HCl 5 mg 06/07/24 23:00 06/07/24 23:10 Oxycodone Hcl Immed Release 5 Mg Tablet PO 06/07/24 23:01 5 mg ONCE ONE Administration Medical Decision Making Medical Decision Making [facility] Narrative: patient is a 58-year-old female with past medical history of CAD, migraines, IBS, hypertension, hypothyroidism, pernicious anemia, dyslipidemia, diabetes, asthma, fibromyalgia, GERD, chronic ITP for which she was recently evaluated by hematology 05/14/2024, discussed bone marrow related ITP treatment options including prednisone, immunotherapy with rituximab, laparoscopic splenectomy; concern for prednisone treatment due to diabetes and concern for possible hyperglycemia, patient elected treatment with rituximab started 05/28/2024. Initial nursing triage reports that she has leukemia per report from EMS, I do not see any indication of this including in her recent hematology visit. She has significant tenderness even upon light palpation of any of her extremities, she is minimally moving on the stretcher a significant myalgia. Will obtain CBC to evaluate for leukocytosis/ anemia, CMP and lipase to evaluate for abnormal electrolytes /abnormal renal function/ abnormal hepatic/biliary function, venous duplex ultrasound of the left lower extremity to exclude DVT, CPK to exclude rhabdo and Urinalysis. Differential Diagnosis Differential Diagnoses: The differential diagnosis associated with the presentation includes (See narrative above) Admission/Observation Consideration of admission/observation: Escalation of care including admission/observation considered Lab Data MDM Lab Attestation statement: I reviewed the patient's lab results. (See course narrative) 06/08/24 08:33 06/08/24 08:33 Labs: Lab Results 06/07/24 06/07/24 06/07/24 Range/Units 19:51 20:34 23:14 WBC 12.9 H (4.8-10.8) X10*3/uL RBC 4.88 (4.20-5.50) X10*6/uL Hgb 12.5 (12.0-16.0) g/dl Hct 38.2 (37.0-47.0) % MCV 78.3 L (80.0-98.0) fL MCH 25.6 L (27.0-33.0) pg MCHC 32.7 (31.0-35.0) g/dl RDW 15.8 (11.0-16.0) % Plt Count 62 L (160-400) X10*3/uL MPV Not Reportable Immature Gran % (Auto) 0.8 H (0.0-0.4) % Neut % (Auto) 83.8 H (45-73) % Lymph % (Auto) 5.3 L (20-40) % [place] % (Auto) 9.2 (2-11) % Eos % (Auto) 0.6 (0-4) % Baso % (Auto) 0.3 (0-2) % Lymph # (Auto) 0.7 L (1.2-4.9) X10*3/uL [place] # (Auto) 1.2 (0.1-1.2) X10*3/uL Eos # (Auto) 0.1 (0.0-0.4) X10*3/uL Baso # (Auto) 0.0 (0.0-0.2) X10*3/uL Abs Immat Gran (auto) 0.10 H (0.00-0.03) X10*3/uL Absolute Neuts (auto) 10.8 H (2.0-8.3) x10*3/uL Absolute Nucleated RBC 0.000 (0.0-0.012) X10*3/uL Nucleated RBC % (auto) 0.0 (0.0-0.2) /100WBC ESR (0-20) MM/HR PT 12.1 (11.1-13.3) SEC INR 1.0 (0.9-1.1) Sodium Cancelled 138 Potassium Cancelled 3.8 Chloride Cancelled 99 Carbon Dioxide Cancelled 29 Anion Gap Cancelled 15 BUN Cancelled 17 H Creatinine Cancelled 1.01 Estim Creat Clear Calc Cancelled 64.0 Estimated GFR Cancelled 56 Random Glucose Cancelled 120 H Lactic Acid (0.5-2.0) mmol/L Lactic Acid F/U @ 2Hr (0.5-2.0) mmol/L Lactic Acid F/U @ 4Hr (0.5-2.0) mmol/L Calcium Cancelled 9.7 Magnesium 1.2 L* (1.6-2.6) mg/dL Total Bilirubin Cancelled 0.4 AST Cancelled 34 H ALT Cancelled 36 H Alkaline Phosphatase Cancelled 79 Total Creatine Kinase Cancelled 129 C-Reactive Protein (< or = 0.50) mg/dL Total Protein Cancelled 7.3 Albumin Cancelled 4.0 Lipase 13 (8-78) U/L Urine Color Yellow Urine Appearance Turbid Urine pH 8.5 (5.0-9.0) Ur Specific Don[place] 1.020 (1.005-1.025) Urine Protein 30 (1+) H (Neg-Trace) mg/dL Urine Glucose (UA) Negative (Negative) mg/dL Urine Ketones Negative (Negative) mg/dL Urine Blood Negative (Negative) Urine Nitrite Negative (Negative) Ur Leukocyte Esterase Trace H (Negative) Urine RBC 3-5 H (0-2) /HPF Urine WBC 6-10 H (0-5) /HPF Ur Squamous Epith Cells 0-2 (0-2) /HPF Urine Bacteria 2+ (None Seen) Hyaline Casts 0-2 (0-2) /LPF Influenza Type A (PCR) NEGATIVE (Negative) Influenza Type B (PCR) NEGATIVE (Negative) RSV RNA Qual (PCR) NEGATIVE (Negative) SARS-CoV-2 RNA (RT-PCR) NEGATIVE (Negative) S. pyogenes GrpA IDA (Negative) 06/08/24 06/08/24 06/08/24 Range/Units 08:33 08:46 11:02 WBC 20.5 H (4.8-10.8) X10*3/uL RBC 5.14 (4.20-5.50) X10*6/uL Hgb 13.2 (12.0-16.0) g/dl Hct 39.9 (37.0-47.0) % MCV 77.6 L (80.0-98.0) fL MCH 25.7 L (27.0-33.0) pg MCHC 33.1 (31.0-35.0) g/dl RDW 16.1 H (11.0-16.0) % Plt Count 75 L (160-400) X10*3/uL MPV Not Reportable Immature Gran % (Auto) 2.1 H (0.0-0.4) % Neut % (Auto) 88.1 H (45-73) % Lymph % (Auto) 1.9 L (20-40) % [place] % (Auto) 6.6 (2-11) % Eos % (Auto) 0.9 (0-4) % Baso % (Auto) 0.4 (0-2) % Lymph # (Auto) 0.4 L (1.2-4.9) X10*3/uL [place] # (Auto) 1.4 H (0.1-1.2) X10*3/uL Eos # (Auto) 0.2 (0.0-0.4) X10*3/uL Baso # (Auto) 0.1 (0.0-0.2) X10*3/uL Abs Immat Gran (auto) 0.43 H (0.00-0.03) X10*3/uL Absolute Neuts (auto) 18.1 H (2.0-8.3) x10*3/uL Absolute Nucleated RBC 0.000 (0.0-0.012) X10*3/uL Nucleated RBC % (auto) 0.0 (0.0-0.2) /100WBC ESR 23 H (0-20) MM/HR PT (11.1-13.3) SEC INR (0.9-1.1) Sodium 134 L Potassium 4.1 Chloride 97 Carbon Dioxide 22 Anion Gap 19 BUN 18 H Creatinine 1.20 Estim Creat Clear Calc 53.9 Estimated GFR 46 Random Glucose 211 H Lactic Acid 3.7 H* (0.5-2.0) mmol/L Lactic Acid F/U @ 2Hr 4.9 H* (0.5-2.0) mmol/L Lactic Acid F/U @ 4Hr (0.5-2.0) mmol/L Calcium 9.4 Magnesium 1.4 L* (1.6-2.6) mg/dL Total Bilirubin AST ALT Alkaline Phosphatase Total Creatine Kinase C-Reactive Protein 16.94 H (< or = 0.50) mg/dL Total Protein Albumin Lipase (8-78) U/L Urine Color Urine Appearance Urine pH (5.0-9.0) Ur Specific [place] (1.005-1.025) Urine Protein (Neg-Trace) mg/dL Urine Glucose (UA) (Negative) mg/dL Urine Ketones (Negative) mg/dL Urine Blood (Negative) Urine Nitrite (Negative) Ur Leukocyte Esterase (Negative) Urine RBC (0-2) /HPF Urine WBC (0-5) /HPF Ur Squamous Epith Cells (0-2) /HPF Urine Bacteria (None Seen) Hyaline Casts (0-2) /LPF Influenza Type A (PCR) (Negative) Influenza Type B (PCR) (Negative) RSV RNA Qual (PCR) (Negative) SARS-CoV-2 RNA (RT-PCR) (Negative) S. pyogenes GrpA IDA (Negative) 06/08/24 06/08/24 Range/Units 13:18 13:24 WBC (4.8-10.8) X10*3/uL RBC (4.20-5.50) X10*6/uL Hgb (12.0-16.0) g/dl Hct (37.0-47.0) % MCV (80.0-98.0) fL MCH (27.0-33.0) pg MCHC (31.0-35.0) g/dl RDW (11.0-16.0) % Plt Count (160-400) X10*3/uL MPV Immature Gran % (Auto) (0.0-0.4) % Neut % (Auto) (45-73) % Lymph % (Auto) (20-40) % [place] % (Auto) (2-11) % Eos % (Auto) (0-4) % Baso % (Auto) (0-2) % Lymph # (Auto) (1.2-4.9) X10*3/uL [place] # (Auto) (0.1-1.2) X10*3/uL Eos # (Auto) (0.0-0.4) X10*3/uL Baso # (Auto) (0.0-0.2) X10*3/uL Abs Immat Gran (auto) (0.00-0.03) X10*3/uL Absolute Neuts (auto) (2.0-8.3) x10*3/uL Absolute Nucleated RBC (0.0-0.012) X10*3/uL Nucleated RBC % (auto) (0.0-0.2) /100WBC ESR (0-20) MM/HR PT (11.1-13.3) SEC INR (0.9-1.1) Sodium Potassium Chloride Carbon Dioxide Anion Gap BUN Creatinine Estim Creat Clear Calc Estimated GFR Random Glucose Lactic Acid (0.5-2.0) mmol/L Lactic Acid F/U @ 2Hr (0.5-2.0) mmol/L Lactic Acid F/U @ 4Hr 6.6 H* (0.5-2.0) mmol/L Calcium Magnesium (1.6-2.6) mg/dL Total Bilirubin AST ALT Alkaline Phosphatase Total Creatine Kinase C-Reactive Protein (< or = 0.50) mg/dL Total Protein Albumin Lipase (8-78) U/L Urine Color Urine Appearance Urine pH (5.0-9.0) Ur Specific [place] (1.005-1.025) Urine Protein (Neg-Trace) mg/dL Urine Glucose (UA) (Negative) mg/dL Urine Ketones (Negative) mg/dL Urine Blood (Negative) Urine Nitrite (Negative) Ur Leukocyte Esterase (Negative) Urine RBC (0-2) /HPF Urine WBC (0-5) /HPF Ur Squamous Epith Cells (0-2) /HPF Urine Bacteria (None Seen) Hyaline Casts (0-2) /LPF Influenza Type A (PCR) (Negative) Influenza Type B (PCR) (Negative) RSV RNA Qual (PCR) (Negative) SARS-CoV-2 RNA (RT-PCR) (Negative) S. pyogenes GrpA IDA Negative (Negative) Independent Interpretation I performed an independent interpretation of an: Ultrasound (No DVT) Radiology Impression Discussion of test interpretation with radiology: I have reviewed the radiologist's reading. Radiologist Impression: US/US venous duplex LE LT IMPRESSION: No evidence of deep venous thrombosis involving the left lower extremity. Independent Historian Clinical information obtained from an independent historian. History obtained from or confirmed by: EMS External Record Review External record reviewed: Outpatient record Critical Care Time Critical Care Time Critical Care Time: Yes Total Critical Care Time: 35 Attestation: Critical Care: The patient was critically ill with a high probability of imminent or life threatening deterioration. I spent greater than 30 minutes of discontinuous time evaluating the patient,delivering critical care at the bedside, discussing and evaluating pertinent data with consultants. Critical care time does not include time spent performing separately billable procedures or teaching. Total time spent performing critical care was 35 minutes. Discharge Plan Discharge Clinical Impression: Hypomagnesemia Serum sickness Qualifiers: Encounter type: initial encounter Qualified Code(s): T80.69XA - Other serum reaction due to other serum, initial encounter Urinary tract infection Qualifiers: Encounter type: initial encounter Patient Disposition: Admitted As Inpatient
--- NOTE | 2024-06-07 19:33 | PC.NURSE ---
pt biba from home, a&ox4, respirations even and unlabored. 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 pt unable to move legs bilaterally at this time and winces from pain. ems placed 20G in left forearm and administered zofran prior to arrival with good relief. pt normal sinus on tele 80-83bpm.
[2024-06-07 19:55] LABS: MANUAL DIFF FLAG NO
[2024-06-07 19:57] LABS: Imm Gran Pct Auto 0.8 % (0.0-0.4); Mean Corpuscular Volume 78.3 fL (80.0-98.0); Red Cell Distribution Width 15.8 % (11.0-16.0); SCAN SMEAR FLAG 1
[2024-06-07 19:58] LABS: Basophils Percent Auto 0.3 % (0-2); Eosinophils Absolute Auto 0.1 X10*3/uL (0.0-0.4); Eosinophils Percent Auto 0.6 % (0-4); Hematocrit 38.2 % (37.0-47.0); Hemoglobin 12.5 g/dl (12.0-16.0); Lymphocytes Absolute Auto 0.7 X10*3/uL (1.2-4.9); Lymphocytes Percent Auto 5.3 % (20-40); Mean Corpuscular HGB Conc 32.7 g/dl (31.0-35.0); Mean Corpuscular Hemoglobin 25.6 pg (27.0-33.0); Monocytes Absolute Auto 1.2 X10*3/uL (0.1-1.2); Monocytes Percent Auto 9.2 % (2-11); Neutrophils Absolute Auto 10.8 x10*3/uL (2.0-8.3); Neutrophils Percent Auto 83.8 % (45-73); Red Blood Count 4.88 X10*6/uL (4.20-5.50); White Blood Count 12.9 X10*3/uL (4.8-10.8)
[2024-06-07 20:02] LABS: Prothrombin Time 12.1 SEC (11.1-13.3)
[2024-06-07 20:07] LABS: PLT ABN DIST 1; Platelet Count 62 X10*3/uL (160-400)
[2024-06-07 20:35] LABS: Influenza A PCR NEGATIVE (Negative); Influenza B PCR NEGATIVE (Negative); Resp Syncy Virus RNA Qual PCR NEGATIVE (Negative); SARS COV2 PCR INHOUSE NEGATIVE (Negative)
[2024-06-07 21:22] LABS: Alanine Aminotransferase 36 U/L (0-31); Alkaline Phosphatase 79 U/L (39-117); Anion Gap 15 (12-20); Aspartate Amino Transferase 34 U/L (5-31); Bilirubin Total 0.4 mg/dL (0.0-1.0); Blood Urea Nitrogen 17 mg/dL (9-16); Calcium 9.7 mg/dL (8.4-10.2); Carbon Dioxide 29 mmol/L (22-29); Chloride 99 mmol/L (96-108); Estimated Glomerular Filt Rate 56; Glucose Random 120 mg/dL (60-115); Lipase 13 U/L (8-78); Magnesium 1.2 mg/dL (1.6-2.6); Potassium 3.8 mmol/L (3.3-5.1); Sodium 138 mmol/L (135-145); Total Protein 7.3 g/dL (6.5-8.0)
[2024-06-07] MEDS: Magnesium Sulfate/H2O 2 GM/50 ML PIGGYBACK IV (21:57)
--- NOTE | 2024-06-07 22:09 | ECG_ITS ---
Test Reason : QTC Blood Pressure : / mmHG Vent. Rate : 093 BPM Atrial Rate : 093 BPM P-R Int : 136 ms QRS Dur : 084 ms QT Int : 380 ms P-R-T Axes : 037 005 080 degrees QTc Int : 472 ms Normal sinus rhythm Normal ECG When compared with ECG of 04-JUL-2017 17:05, No significant change was found Referred By: Analy Pfeiffer Electronically Signed By:ALEXEY JULES
[2024-06-07] MEDS: oxyCODONE HCl Immed Release 5 MG TABLET PO (23:10)
[2024-06-07] MEDS: ondansetron HCL 4 MG/2 ML VIAL IVPUSH (23:10)
[2024-06-07 23:46] LABS: Appearance Urine Turbid; Color Urine Yellow; Glucose Urine UA Negative (Negative); Leukocyte Esterase Urine Trace (Negative); Nitrite Urine Negative (Negative); PH 8.5 (5.0-9.0); UMIC TRIGGER UACC YES; Urine Blood Negative (Negative); Urine Ketones Negative (Negative); Urine Protein 30 (1+) mg/dL (Neg-Trace)
[2024-06-08] VITALS (21 sets, daily range): BP systolic 108–148; BP diastolic 47–72; PULSE 96–121; RESP 12–30; TEMP 36.3–38.6; O2SAT 88–97; BMI 46.3
[2024-06-08] LABS: Bacteria Urine 2+ (None Seen); Hyaline Casts Urine 0-2 /LPF (0-2); Squamous Epithelial Cell Urine 0-2 /HPF (0-2); UACC Culture Trigger YES
[2024-06-08] MEDS: cefTRIAXone sodium 1 GM in 0.9 % Sodium Chloride 50 ML IV (00:52)
--- NOTE | 2024-06-08 00:55 | PC.NURSE ---
per Jefry MITCHELL, okay to administer antibiotics without blood cultures at this time.
[2024-06-08] MEDS: Morphine Sulfate 2 MG/ML CARTRIDGE IVPUSH (01:41)
--- NOTE | 2024-06-08 05:53 | PC.NURSE ---
pt appears weak at this time, aware, plan to re-assess pt for plan.
--- NOTE | 2024-06-08 06:34 | PC.NURSE ---
pt noted to be warm to touch, rectal temp obtained, 100.8, aware. purewick placed on pt due to pt having hard time moving.
[2024-06-08 08:42] LABS: MANUAL DIFF FLAG NO
[2024-06-08 08:57] LABS: Basophils Absolute Auto 0.1 X10*3/uL (0.0-0.2); Basophils Percent Auto 0.4 % (0-2); Eosinophils Absolute Auto 0.2 X10*3/uL (0.0-0.4); Eosinophils Percent Auto 0.9 % (0-4); Hematocrit 39.9 % (37.0-47.0); Hemoglobin 13.2 g/dl (12.0-16.0); Imm Gran Abs Auto 0.43 X10*3/uL (0.00-0.03); Imm Gran Pct Auto 2.1 % (0.0-0.4); Lymphocytes Absolute Auto 0.4 X10*3/uL (1.2-4.9); Lymphocytes Percent Auto 1.9 % (20-40); Mean Corpuscular HGB Conc 33.1 g/dl (31.0-35.0); Mean Corpuscular Hemoglobin 25.7 pg (27.0-33.0); Mean Corpuscular Volume 77.6 fL (80.0-98.0); Monocytes Absolute Auto 1.4 X10*3/uL (0.1-1.2); Monocytes Percent Auto 6.6 % (2-11); Neutrophils Absolute Auto 18.1 x10*3/uL (2.0-8.3); Neutrophils Percent Auto 88.1 % (45-73); Red Blood Count 5.14 X10*6/uL (4.20-5.50); Red Cell Distribution Width 16.1 % (11.0-16.0)
[2024-06-08 08:58] LABS: Platelet Count 75 X10*3/uL (160-400); White Blood Count 20.5 X10*3/uL (4.8-10.8)
[2024-06-08 09:16] LABS: Anion Gap 19 (12-20); Blood Urea Nitrogen 18 mg/dL (9-16); C Reactive Protein 16.94 mg/dL (< or = 0.50); Calcium 9.4 mg/dL (8.4-10.2); Carbon Dioxide 22 mmol/L (22-29); Chloride 97 mmol/L (96-108); Creatinine Clr Calc Pharmacy 53.9; Estimated Glomerular Filt Rate 46; Glucose Random 211 mg/dL (60-115); Magnesium 1.4 mg/dL (1.6-2.6); Potassium 4.1 mmol/L (3.3-5.1); Sodium 134 mmol/L (135-145)
[2024-06-08 09:16] LABS: Lactic Acid 3.7 mmol/L (0.5-2.0)
[2024-06-08] MEDS: Morphine Sulfate 4 MG/ML CARTRIDGE IVPUSH (09:19)
[2024-06-08 09:35] LABS: Erythrocyte Sedimentation Rate 23 MM/HR (0-20)
--- NOTE | 2024-06-08 10:35 | PC.NURSE ---
aware of tachycardia. Awaiting further orders
[2024-06-08 10:56] LABS: Reflex Lactate? Lactic Acid Added
--- NOTE | 2024-06-08 11:04 | PC.NURSE ---
20G to RAC. Tolerated well. Good blood return.
[2024-06-08] MEDS: Lactated Ringers 1,000 ML 1400 ML IV (11:06)
[2024-06-08] MEDS: Lactated Ringers 1,000 ML 999 ML IV (11:06)
[2024-06-08 11:23] LABS: ~Lactic Acid-LAB USE ONLY 4.9 mmol/L (0.5-2.0)
--- NOTE | 2024-06-08 11:37 | PC.NURSE ---
Rectal temp. 101.3F. D. MD Pedrito notified for Tylenol.
[2024-06-08] MEDS: HYDROmorphone HCl 1 MG/ML SYRINGE IVPUSH (12:05)
[2024-06-08] MEDS: Acetaminophen 325 MG TABLET 975 MG PO (12:13)
--- NOTE | 2024-06-08 12:23 | PC.NURSE ---
Pt. was only able to tolerate 325mg (one tablet) of the total ordered 975mg of Tylenol PO. D. MD Pedrito aware, liquid Tylenol being ordered.
[2024-06-08] MEDS: Acetaminophen Oral Liquid 650 MG/20.3 ML SOLUTION PO (12:32)
[2024-06-08] MEDS: methylPREDNISolone Sod Succ 125 MG/2 ML VIAL 60 MG IVPUSH ×2 (13:03→22:21)
[2024-06-08 13:08] LABS: Reflex Lactate? 2 Y
[2024-06-08 13:45] LABS: ~Lactic Acid-LAB USE ONLY 6.6 mmol/L (0.5-2.0)
[2024-06-08 13:48] LABS: IDNOW Serial# 08D9AD1C; Strep A Nucleic Acid Negative (Negative)
[2024-06-08] MEDS: cefEPime HCl 2 GM in 0.9 % Sodium Chloride 50 ML IV (14:17)
[2024-06-08] MEDS: Magnesium Sulfate/H2O 2 GM/50 ML PIGGYBACK IV (14:18)
[2024-06-08] MEDS: vancomycin/NS 2,000 MG/500 ML PLAST..BAG 250 MG IV (14:18)
--- NOTE | 2024-06-08 15:26 | P.HPHOSP_ITS ---
History of Present Illness Date of Service: 06/08/24 Chief Complaint: diffuse aches and pain, fever The patient is a 58-year-old female with a past medical history of hypothyroidism, CAD, diabetes, fibromyalgia, GERD, hypertension, IBS, obesity, ITP who presents to the hospital with a several day history of diffuse arthralgias, dysphagia, fevers at home. The patient reports a history of ITP and was recently treated with rituximab (about 4 days prior to admission). She states that she initially was okay on the 1st day after infusion, however since then her symptoms have slowly progressed to the point where she is unable to ambulate and also reports odynophagia. The patient presented to the emergency room on 06/07 at which time her workup did not have any significant findings. She had an equivocal UA and has been treated with IV ceftriaxone. She continued to have persistent joint pains and was treated with multiple rounds of IV analgesics. This morning however, the patient began to have fevers and tachycardia. Repeat [place] [id number]. Again no definitive foci of infection has been found thus far. Given her recent restarting of IV rituximab, this may be related to serum sickness like reaction secondary to it. Nonetheless given her persistent fevers, she has been cultured and her antibiotic coverage has been broadened to vancomycin and cefepime. The patient's case was discussed with the on-call electron beam welding machine operator/oncologist who has recommended IV steroids and antibiotics. Patient is seen and examined in the emergency room. Product Development Coordinator services were used. Currently her main complaint is of diffuse joint pain. She also reports odynophagia. She reports feeling unchanged since presenting to the emergency room. Review of Systems 2 Review of Systems: Negative except HPI/interval history. 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 Diabetes type 2, uncontrolled Asthma Pernicious anemia Diabetes mellitus Fibromyalgia GERD (gastroesophageal reflux disease) Hypertension Adult hypothyroidism Family History Mother Diabetes Sister Stomach cancer Father Brother Colon cancer Brother Pancreas cancer Surgical History H/O colonoscopy Hx of cataract surgery H/O: hysterectomy Social History Household Members: Spouse Housing: Apartment Are you a primary childcare center director to a significant other at home: No Do you presently have visiting nurse or other home services: Yes Alcohol intake: current Alcohol intake frequency: does not drink Patient Tobacco Use Status: Former Tobacco user Tobacco use type: Cigarette Use of substances other than those prescribed or required for medical reasons: No Have you been hit, kicked, punched, or otherwise hurt by someone within the past year? If so, by whom?: No Advance Directives: No Advance Directives Information Provided: No Do you have thoughts of harming others: None Do you have a plan to hurt others: No Plan Do you have the means to hurt others: No Recently lost weight without trying: Unsure How much weight loss: 14-23 pounds Eating poorly because of decreased appetite: Yes Nutrition screen score: 5 Patient : No Poor oral hygiene: No service: No Current occupational status: unemployed Current occupation: she lives with her . Meds Allergies Allergy/AdvReac Type Severity Reaction Status Date / Time ibuprofen [IBUPROFEN] Allergy Mild RASH Verified 06/07/24 19:14 Active Medications: Current Medications Acetaminophen (Acetaminophen 325 Mg Tablet) 650 mg PO Q6H PRN PRN Reason: Pain, Mild (Pain Scale 1-3), fever or headache Calcium Carbonate (Calcium Carbonate 750 Mg Tab.Chew) 750 mg PO Q4H PRN PRN Reason: Heartburn Magnesium Sulfate (Magnesium Sulfate/H2o) 2 gm in 50 mls @ 25 mls/hr IV ONCE ONE Stop: 06/08/24 15:55 Last Admin: 06/08/24 14:18 Dose: 25 mls/hr Vancomycin HCl (Vancomycin/Ns) 2,000 mg in 500 mls @ 250 mls/hr IV ONCE ONE Stop: 06/08/24 16:01 Last Admin: 06/08/24 14:18 Dose: 250 mls/hr Magnesium Hydroxide (Milk Of Magnesia 30 Ml Oral.Susp) 30 ml PO DAILY PRN PRN Reason: Constipation Melatonin (Melatonin 3 Mg Tablet) 6 mg PO BEDTIME PRN PRN Reason: Insomnia Ondansetron HCl (Ondansetron Hcl 4 Mg/2 Ml Vial) 4 mg IVPUSH Q8H PRN PRN Reason: Nausea and Vomiting Sodium Chloride (0.9 % Sodium Chloride Flush 3 Ml Syringe) [facility]ations ?Medication ?Instructions ?Recorded ?Confirmed ?Last Taken ?Type cetirizine 10 mg tablet 10 mg PO DAILY 07/18/20 06/08/24 Unknown History clonazepam 1 mg tablet 1 mg PO BID 07/18/20 06/08/24 Unknown History cyanocobalamin (vitamin B-12) 1,000 mcg IM QMONTH 07/18/20 06/08/24 Unknown History 1,000 mcg/mL injection solution levothyroxine 137 mcg capsule 137 mcg PO DAILY@0600 07/18/20 06/08/24 Unknown History (Tirosint) lisinopril 2.5 mg tablet 2.5 mg PO DAILY 07/18/20 06/08/24 Unknown History omeprazole 20 mg capsule,delayed 20 mg PO DAILY 07/18/20 06/08/24 Unknown History release acetaminophen 500 mg tablet 1,000 mg PO QID PRN Pain 08/25/20 06/08/24 Unknown History (Tylenol Extra Strength) dicyclomine 10 mg capsule 20 mg PO TID 12/11/20 06/08/24 Unknown History cyclobenzaprine 10 mg tablet 10 mg PO BEDTIME PRN Muscle Spasms 12/26/20 06/08/24 Unknown History aspirin 81 mg tablet,delayed 81 mg PO DAILY 07/03/21 06/08/24 10/20/23 History release (Adult Low Dose Aspirin) cholecalciferol (vitamin D3) 50 50 mcg PO DAILY 07/03/21 06/08/24 Unknown History mcg (2,000 unit) capsule zolpidem 10 mg tablet 10 mg PO BEDTIME 07/03/21 06/08/24 Unknown History betamethasone, augmented 0.05 % 1 appl topical DAILY PRN Flares 06/08/24 06/08/24 Unknown History topical ointment clobetasol 0.05 % topical ointment 1 appl topical BID PRN Itchiness 06/08/24 06/08/24 Unknown History duloxetine 20 mg capsule,delayed 40 mg PO BEDTIME 06/08/24 06/08/24 Unknown History release glucagon 3 mg/actuation nasal 3 mg intranasal DIRECTED 06/08/24 06/08/24 Unknown History spray (Baqsimi) hydrochlorothiazide 12.5 mg tablet 12.5 mg PO DAILY 06/08/24 06/08/24 Unknown History insulin glargine U-300 conc 300 120 unit subcut DAILY 06/08/24 06/08/24 Unknown History unit/mL (3 mL) subcutaneous pen (Toujeo Max U-300 SoloStar) insulin lispro 100 unit/mL 1 sliding scale dose subcut 06/08/24 06/08/24 Unknown History subcutaneous pen USEASDIRECTD ketotifen fumarate 0.025 % (0.035 1 drp ophthalmic (eye) BID PRN 06/08/24 06/08/24 Unknown History %) eye drops (Eye Itch Relief) Itchiness quetiapine 300 mg tablet 300 mg PO BEDTIME 06/08/24 06/08/24 Unknown History sennosides 8.6 mg-docusate sodium 1 tab-cap PO DAILY 06/08/24 06/08/24 Unknown History 50 mg tablet (Senna Plus) tacrolimus 0.1 % topical ointment 1 appl topical BID PRN Flares 06/08/24 06/08/24 Unknown History tirzepatide 5 mg/0.5 mL 10 mg subcut QWEEK 06/08/24 06/08/24 Unknown History subcutaneous pen injector (Shun) Physical Exam 2 Vital Signs and Narrative: Vital Signs: Last Vital Signs Temp 100.8 F H 06/08/24 14:22 Pulse 119 H 06/08/24 14:22 Resp 20 06/08/24 14:22 BP 123/57 L 06/08/24 14:22 Pulse Ox 94 06/08/24 14:22 O2 Del Method Room Air 06/08/24 14:22 BMI result Body Mass Index 46.3 Const: Other: Constitutional - Awake and Alert, appears uncomfortable and in pain Eyes - PERRLA, EOMI Cardiovascular - S1S2, RRR, No edema Respiratory - Normal lung expansion, Normal respiratory effort, No respiratory distress, CTA bilaterally Gastrointestinal - NT / ND; +BS; No rebound or guarding - No CVA tenderness Extremities - no calf tenderness bilaterally, no swelling Musculoskeletal - bilateral hands with edema and limited ROM, multiple joints inflammed and tender, +erythema of the hands; b/l ankle swelling with TTP; Skin - Warm/Dry Neurological - Alert & oriented x3, No focal deficit Psychological - Appropriate affect Results Labs 06/12/24 06:07 06/13/24 06:11 Labs: Laboratory Results - last 24 hr 06/07/24 06/07/24 06/07/24 19:51 20:34 23:14 MCV 78.3 L MCH 25.6 L MCHC 32.7 RDW 15.8 Plt Count 62 L MPV Not Reportable Immature Gran % (Auto) 0.8 H Neut % (Auto) 83.8 H Lymph % (Auto) 5.3 L [place] % (Auto) 9.2 Eos % (Auto) 0.6 Baso % (Auto) 0.3 Lymph # (Auto) 0.7 L [place] # (Auto) 1.2 Eos # (Auto) 0.1 Baso # (Auto) 0.0 Abs Immat Gran (auto) 0.10 H Absolute Neuts (auto) 10.8 H Absolute Nucleated RBC 0.000 Nucleated RBC % (auto) 0.0 ESR PT 12.1 INR 1.0 Anion Gap Cancelled 15 Estim Creat Clear Calc Cancelled 64.0 Estimated GFR Cancelled 56 Random Glucose Cancelled 120 H Lactic Acid Lactic Acid F/U @ 2Hr Lactic Acid F/U @ 4Hr Calcium Cancelled 9.7 Magnesium 1.2 L* Total Bilirubin Cancelled 0.4 AST Cancelled 34 H ALT Cancelled 36 H Alkaline Phosphatase Cancelled 79 Total Creatine Kinase Cancelled 129 C-Reactive Protein Total Protein Cancelled 7.3 Albumin Cancelled 4.0 Lipase 13 Urine Color Yellow Urine Appearance Turbid Urine pH 8.5 Ur Specific [place] 1.020 Urine Protein 30 (1+) H Urine Glucose (UA) Negative Urine Ketones Negative Urine Blood Negative Urine Nitrite Negative Ur Leukocyte Esterase Trace H Urine RBC 3-5 H Urine WBC 6-10 H Ur Squamous Epith Cells 0-2 Urine Bacteria 2+ Hyaline Casts 0-2 Influenza Type A (PCR) NEGATIVE Influenza Type B (PCR) NEGATIVE RSV RNA Qual (PCR) NEGATIVE SARS-CoV-2 RNA (RT-PCR) NEGATIVE S. pyogenes GrpA IDA 08/06/08/24 06/08/24 08:33 08:46 11:02 MCV 77.6 L MCH 25.7 L MCHC 33.1 RDW 16.1 H Plt Count 75 L MPV Not Reportable Immature Gran % (Auto) 2.1 H Neut % (Auto) 88.1 H Lymph % (Auto) 1.9 L [place] % (Auto) 6.6 Eos % (Auto) 0.9 Baso % (Auto) 0.4 Lymph # (Auto) 0.4 L [place] # (Auto) 1.4 H Eos # (Auto) 0.2 Baso # (Auto) 0.1 Abs Immat Gran (auto) 0.43 H Absolute Neuts (auto) 18.1 H Absolute Nucleated RBC 0.000 Nucleated RBC % (auto) 0.0 ESR 23 H PT INR Anion Gap 19 Estim Creat Clear Calc 53.9 Estimated GFR 46 Random Glucose 211 H Lactic Acid 3.7 H* Lactic Acid F/U @ 2Hr 4.9 H* Lactic Acid F/U @ 4Hr Calcium 9.4 Magnesium 1.4 L* Total Bilirubin AST ALT Alkaline Phosphatase Total Creatine Kinase C-Reactive Protein 16.94 H Total Protein Albumin Lipase Urine Color Urine Appearance Urine pH Ur Specific [place] Urine Protein Urine Glucose (UA) Urine Ketones Urine Blood Urine Nitrite Ur Leukocyte Esterase Urine RBC Urine WBC Ur Squamous Epith Cells Urine Bacteria Hyaline Casts Influenza Type A (PCR) Influenza Type B (PCR) RSV RNA Qual (PCR) SARS-CoV-2 RNA (RT-PCR) S. pyogenes GrpA IDA 06/08/24 06/08/24 13:18 13:24 MCV MCH MCHC RDW Plt Count MPV Immature Gran % (Auto) Neut % (Auto) Lymph % (Auto) [place] % (Auto) Eos % (Auto) Baso % (Auto) Lymph # (Auto) [place] # (Auto) Eos # (Auto) Baso # (Auto) Abs Immat Gran (auto) Absolute Neuts (auto) Absolute Nucleated RBC Nucleated RBC % (auto) ESR PT INR Anion Gap Estim Creat Clear Calc Estimated GFR Random Glucose Lactic Acid Lactic Acid F/U @ 2Hr Lactic Acid F/U @ 4Hr 6.6 H* Calcium Magnesium Total Bilirubin AST ALT Alkaline Phosphatase Total Creatine Kinase C-Reactive Protein Total Protein Albumin Lipase Urine Color Urine Appearance Urine pH Ur Specific [place] Urine Protein Urine Glucose (UA) Urine Ketones Urine Blood Urine Nitrite Ur Leukocyte Esterase Urine RBC Urine WBC Ur Squamous Epith Cells Urine Bacteria Hyaline Casts Influenza Type A (PCR) Influenza Type B (PCR) RSV RNA Qual (PCR) SARS-CoV-2 RNA (RT-PCR) S. pyogenes GrpA IDA Negative Imaging Radiologist's Impressions: Impressions Venous Duplex 06/07/24 23:16 IMPRESSION: No evidence of deep venous thrombosis involving the left lower extremity. Electronically signed by: Mark Burroughs MD 06/08/2024 12:10 AM EDT RP Assessment and Plan (1) Serum sickness: Qualifiers: Encounter type: initial encounter Qualified Code(s): T80.69XA - Other serum reaction due to other serum, initial encounter Status: Acute Plan 58-year-old female with multiple medical problems including ITP who was recently restarted on rituximab and now presents several days later with diffuse arthralgias and fevers. She will be admitted for further workup. 1. Suspected serum sickness Was previously treated with rituximab in 2019 according to the oncology notes and recently restarted about 4 days prior to admission. Discussed with Oncology, will treat with IV steroids 60 mg Solu-Medrol twice a day 2. SIRS Increased WBC count, tachycardia and fevers No definitive source of infection but given her acute illness will empirically treat with broad-spectrum antibiotics - vancomycin and Zosyn 3. Odynophagia Unable to fully visualize posterior pharynx; Strep screen negative She appears to be quite tender in the parotid region We will check CT of the neck -- ordered by the ED, pending at this time 4. Acute lactic acidosis question related to #1 has been given IVF per ideal body weight 5. DM unclear what meds she is on at home (med rec pending) will start sliding scale, POC QIDAC Quality Stroke Does the patient have a stroke diagnosis?: No VTE Prior VTE?: No VTE Risk Level:: Medical - moderate - high VTE Device Contraindication: N/A - Device Ordered VTE Drug Contraindication: Treatment Not Indicated
--- NOTE | 2024-06-08 15:48 | PC.NURSE ---
Pt. noted to be 88% on RA. 1L via NC applied- sats improved to 93%.
--- NOTE | 2024-06-08 16:22 | PHA.PROG ---
Admission Date/Time: June 08, 2024 15:48 Indication: OTHER Weight in k.9 kg Adjusted body weight in Kg: [place] body weight in Kg: Obesity Dosing Indication % IBW: Serum Creatinine - Last 168 Hours 06/07/24 06/07/24 06/08/24 19:51 20:34 08:33 Creatinine Cancelled 1.01 1.20 Estimated CrCl and GFR - Last 168 Hours 06/07/24 06/07/24 06/08/24 19:51 20:34 08:33 Estim Creat Clear Calc Cancelled 64.0 53.9 Estimated GFR Cancelled 56 46 Vancomycin Loading Dose: 2000 MG Current Vancomycin Dosing Regimen: 500 MG Q12H Vancomycin Monitoring using AUC goal of 400 - 600 range with trough as surrogate marker: BDN=692 TROUGH=15.3 Date and Time for next Vancomycin Level to be drawn: 06/09/24 @2100 Pharmacist Comments on Vancomycin Plan: Vancomycin dosing will take advantage of [employer] as a clinical decision support tool that uses Bayesian modeling to calculate individual patient's pharmacokinetic parameters and forecast the patient's drug concentration time course with the target goal AUC 24 range of 400 - 600 mg/L/hr.
--- NOTE | 2024-06-08 16:28 | PHA.MEDREC ---
Addendum entered by Rm Quesada [facility] 06/08/24 16:47: med rec reviewed Original Note: Pharmacy Consult ? Medication Reconciliation Pharmacy has completed the medication reconciliation. Licensed Clinical Psychologist from previous shift tried speaking to patient with berry grow[facility] but didnt have much luck and they called the patient Pharmacy ([facility] in [place]) and they faxed over a medication list that we were able to confirm her medications but she wasn't sure how she was taking them or when she last took them.
--- NOTE | 2024-06-08 19:12 | PC.NURSE ---
this rn assumed care of pt, pt a&ox4, respirations even and unlabored. pt on 1L nasal cannula for comfort. pt winces to touch at this time and appears uncomfortable with rolling to retreve rectal temp. this RN placed rectal probe at this time. pt noted to have fever and tachycardia. Radha MITCHELL aware. purewick in place. pt heart rate 112-115.
[2024-06-08 19:13] LABS: Glucose, Whole Blood 293 mg/dL (60-115)
[2024-06-08] MEDS: Insulin Lispro 100 UNIT/ML 3 ML VIAL SUBCUT (19:48)
[2024-06-08] MEDS: Acetaminophen 1,000 MG/100 ML PIGGYBACK 400 MG IV (19:48)
--- NOTE | 2024-06-08 19:51 | PC.NURSE ---
pt medicated per dec for fever, per give pt insulin sliding scale. POC [id number]
--- NOTE | 2024-06-08 20:25 | PC.NURSE ---
aware of pt vital signs at this time, pt noted to be febrile, plan for cooling blanket at this time.
--- NOTE | 2024-06-08 20:36 | PC.NURSE ---
cooling blanket placed on pt at this time. pt tolerating well.
[2024-06-08 20:40] LABS: Glucose, Whole Blood 312 mg/dL (60-115)
[2024-06-08 21:14] LABS: Glucose, Whole Blood 310 mg/dL (60-115)
[2024-06-08] MEDS: 0.9 % Sodium Chloride Flush 3 ML SYRINGE IVFLUSH (22:27)
[2024-06-09 00:20] LABS: Glucose, Whole Blood 281 mg/dL (60-115)
[2024-06-09] MEDS: Morphine Sulfate 4 MG/ML CARTRIDGE IVPUSH ×5 (00:55→21:31)
[2024-06-09] MEDS: cefEPime HCl 2 GM in 0.9 % Sodium Chloride 50 ML IV ×2 (01:05→17:10)
[2024-06-09] MEDS: vancomycin HCL 500 MG in 0.9 % Sodium Chloride 100 ML 110 MG IV ×2 (01:46→21:37)
[2024-06-09 04:00] VITALS: BP 127/58; PULSE 113; RESP 24; TEMP 38.1; O2SAT 90
[2024-06-09 07:10] LABS: Glucose, Whole Blood 296 mg/dL (60-115)
[2024-06-09 07:17] VITALS: BP 143/64; PULSE 108; RESP 20; TEMP 38; O2SAT 92
[2024-06-09 07:27] LABS: Hematocrit 40.9 % (37.0-47.0); Hemoglobin 13.1 g/dl (12.0-16.0); Mean Corpuscular Hemoglobin 25.5 pg (27.0-33.0); Mean Corpuscular Volume 79.6 fL (80.0-98.0); NRBC Pct Auto 0.1 /100WBC (0.0-0.2); Red Blood Count 5.14 X10*6/uL (4.20-5.50); Red Cell Distribution Width 16.2 % (11.0-16.0); White Blood Count 16.4 X10*3/uL (4.8-10.8)
[2024-06-09 07:28] LABS: Platelet Count 88 X10*3/uL (160-400)
[2024-06-09 07:35] LABS: Alanine Aminotransferase 20 U/L (0-31); Albumin Level 3.3 g/dL (3.5-5.0); Alkaline Phosphatase 44 U/L (39-117); Aspartate Amino Transferase 16 U/L (5-31); Bilirubin Total 1.5 mg/dL (0.0-1.0); Blood Urea Nitrogen 19 mg/dL (9-16); Calcium 9.2 mg/dL (8.4-10.2); Creatinine Clr Calc Pharmacy 42.2; Estimated Glomerular Filt Rate 35; Glucose Random 322 mg/dL (60-115)
[2024-06-09 08:00] LABS: Anion Gap 19 (12-20); Carbon Dioxide 23 mmol/L (22-29); Chloride 96 mmol/L (96-108); Sodium 133 mmol/L (135-145)
[2024-06-09] MEDS: Insulin Lispro 100 UNIT/ML 3 ML VIAL SUBCUT ×4 (08:02→21:39)
[2024-06-09] MEDS: methylPREDNISolone Sod Succ 125 MG/2 ML VIAL 60 MG IVPUSH ×2 (08:03→21:34)
[2024-06-09] MEDS: 0.9 % Sodium Chloride Flush 3 ML SYRINGE IVFLUSH ×2 (08:03→17:10)
--- NOTE | 2024-06-09 08:30 | MHC.CM.PN ---
CM met with Patient at bedside with the assist of a [place] production machinist. Patient lives in an apartment with her Boyfriend, uses a cane, and has a [employer] Friday- Friday, 9AM-4PM. Home/resume said services is the goal and CM has initiated and will follow for dc planning. PCP is Dr. Katelynn Guzman and [employer] will transport to home.
[2024-06-09 08:35] LABS: Magnesium 1.7 mg/dL (1.6-2.6)
[2024-06-09 08:56] LABS: Procalcitonin 11.21 ng/mL
--- NOTE | 2024-06-09 10:05 | P.CNHO_ITS ---
Subjective - Subjective Chief complaint: Fever, diffuse body aches and swelling Patient: known to practice within the last 3 years Consult date: 06/09/24 Requesting Physician: Hospitalist team Primary Care Provider: Katelynn Guzman MD Medical Summary: Diagnosis: ITP Rituximab in 2019 Bone marrow results from 06/13/20: Bone marrow, aspirate, clot and biopsy: - Mildly hypercellular marrow with maturing trilineage hematopoiesis. - Megakaryocyte hyperplasia. - Reduced iron stores. The patient's pancytopenia is noted. No evidence of dysplasia or a marrow infiltrative process is seen. The megakaryocyte hyperplasia may be compensatory due to peripheral destruction of platelets. Flow cytometry and cytogenetics: LEFT-SHIFTED MYELOPOIESIS, 1% MYELOBLASTS Myeloid forms exhibit immunophenotypic evidence of left-shifted maturation with no detectable aberrant marker expression. Blasts are not increased. Monocytes are immunophenotypically mature, comprise 4% of WBCs, and express partial aberrant CD56. Lymphocytes include normal precursor B cells/hematogones, polyclonal mature B cells, NK cells and immunophenotypically normal CD4+ and CD8+ T cells in normal proportions. No evidence of a clonal lymphoid expansion. Correlate with morphologic findings and cytogenetic studies for further evaluation of the significance of the observed left-shifted myelopoiesis. HPI - Consult Narrative Reason for consult: Fever and body aches Narrative: Bhavna Zavaleta is a 58 year old female with past medical history significant for ITP who is admitted for fevers and body aches. Patient received 2nd dose of rituximab on 06/04/2024 for treatment of ITP. On 06/07/2024 she developed fever, body swelling and diffuse arthralgias. She reports difficulty swallowing and sputum production although she does not have cough. She reports nausea and poor appetite. She is very tender especially over her lower extremities and feet. She has a longstanding diabetic but she says she never had this kind of pain before. She is unable to walk. She does have history of arthritis. She received rituximab in 2019, she tolerated that well. She denies abdominal pain or diarrhea. No dysuria, frequency or urgency. Review of Systems - Constitutional Reports as per HPI, Reports body aches, Reports fatigue, Reports fever(s), Reports lack of energy, Reports malaise [facility] Medical History: Medical History (Last Reviewed 06/08/24 @ 15:39 by Saul Ramos MD) Adult hypothyroidism Anxiety and depression Asthma Atherosclerotic cardiovascular disease CAD (coronary artery disease) Diabetes mellitus Diabetes type 2, uncontrolled Diabetic nephropathy associated with type 2 diabetes mellitus Dyslipidemia Fibromyalgia GERD (gastroesophageal reflux disease) Hypertension IBS (irritable bowel syndrome) long-term (current) use of insulin Migraines Obesity (BMI 30-39.9) Obesity due to excess calories Pernicious anemia Sleep apnea Vitamin D deficiency Family History: Family History (Last Reviewed 06/08/24 @ 15:39 by Saul Ramos MD) Mother Diabetes Sister Stomach cancer Father Brother Colon cancer Brother Pancreas cancer Surgical History: Surgical History (Last Reviewed 06/08/24 @ 15:39 by Saul Ramos MD) H/O colonoscopy H/O: hysterectomy Hx of cataract surgery Social History: Social History (Last Reviewed 06/08/24 @ 15:39 by Saul Ramos MD) Living Situation History: Household Members: Spouse Housing: Apartment Are you a primary acute care clinical nurse specialist to a significant other at home: No Do you presently have visiting nurse or other home services: Yes Alcohol History Details: 1. How often do you have a drink containing alcohol?: a. Never AUDIT-C Alcohol total score: 0 Currently Displaying Signs/Symptoms of Alcohol Withdrawal: No Tobacco History: Patient Tobacco Use Status: Former Tobacco user Tobacco use type: Cigarette Smoked in Last 30 Days: No Substance Use History: Use of substances other than those prescribed or required for medical reasons : No Currently Displaying Signs/Symptoms of Drug Intoxication Withdrawal: No Domestic Abuse History: Have you been hit, kicked, punched, or otherwise hurt by someone within the past year? If so, by whom?: No Do you feel safe in your current relationship?: Yes Is there a partner from a previous relationship who is making you feel unsafe now?: No Are you made to feel afraid or neglected: No Advance Directives: Advance Directives: No Advance Directives Information Provided: No Nutrition Assessment: Recently lost weight without trying: Unsure How much weight loss: Unsure Eating poorly because of decreased appetite: Yes Nutrition screen score: 5 Nutrition Risks: Difficulty swallowing Patient : No : No Poor oral hygiene: No Occupation Assessmet: service: No Current occupational status: unemployed Current occupation: she lives with her . Home Medications and Allergies Current Medications: Current Medications Acetaminophen (Acetaminophen 325 Mg Tablet) 650 mg PO Q6H PRN PRN Reason: Pain, Mild (Pain Scale 1-3), fever or headache Aspirin (Aspirin Enteric Coated 81 Mg Tablet.) 81 mg PO DAILY [facility] Last Admin: 06/09/24 08:29 Dose: Not Given Atorvastatin Calcium (Atorvastatin Calcium 80 Mg Tablet) 80 mg PO DAILY [facility] Last Admin: 06/09/24 08:30 Dose: Not Given Calcium Carbonate (Calcium Carbonate 750 Mg Tab.Chew) 750 mg PO Q4H PRN PRN Reason: Heartburn Clonazepam (Clonazepam 1 Mg Tablet) 1 mg PO BID [facility] Last Admin: 06/09/24 08:30 Dose: Not Given Cyclobenzaprine HCl (Cyclobenzaprine Hcl 10 Mg Tablet) 10 mg PO BEDTIME PRN PRN Reason: Muscle Spasms Dicyclomine HCl (Dicyclomine Hcl 10 Mg Capsule) 20 mg PO TID [facility] Last Admin: 06/09/24 08:30 Dose: Not Given Duloxetine HCl (Duloxetine Hcl 20 Mg Capsule.) 40 mg PO BEDTIME [facility] Ferrous Sulfate (Ferrous Sulfate 324 Mg Tablet.) 324 mg PO DAILY [facility] Last Admin: 06/09/24 08:30 Dose: Not Given Glucose (Glucose Gel 15 Gm Gel..Gram.) 15 gm PO Q15M PRN; Protocol PRN Reason: per Hypoglycemia Standing Ord. Cefepime HCl 2 gm/ Sodium (Chloride) 50 mls @ 100 mls/hr IV Q12H [facility] Last Infusion: 06/09/24 01:35 Dose: Infused Vancomycin HCl 500 mg/ Sodium (Chloride) 110 mls @ 110 mls/hr IV Q12H [facility] Last Infusion: 06/09/24 02:46 Dose: Infused Dextrose (D10) 250 mls @ 750 mls/hr IV Q15M PRN; Protocol PRN Reason: per Hypoglycemia Standing Ord. Lactated Ringer's (Lr) 1,000 mls @ 125 mls/hr IVCONT .Q8H [facility] Insulin Glargine (Insulin Glargine,Hum.Rec.Anlog 100 Unit/Ml 10 Ml Vial) 60 unit SUBCUT BEDTIME [facility] Insulin Human Lispro (Insulin Lispro 100 Unit/Ml 3 Ml Vial) 0 unit SUBCUT QIDACHS [facility]; Protocol Last Admin: 06/09/24 08:02 Dose: 6 unit Levothyroxine Sodium (Levothyroxine Sodium 112 Mcg Tablet) 112 mcg PO DAILY@0600 [facility] Levothyroxine Sodium (Levothyroxine Sodium 25 Mcg Tablet) 25 mcg PO DAILY@0600 [facility] Loratadine (Loratadine 10 Mg Tablet) 10 mg PO DAILY [facility] Last Admin: 06/09/24 08:42 Dose: Not Given Magnesium Hydroxide (Milk Of Magnesia 30 Ml Oral.Susp) 30 ml PO DAILY PRN PRN Reason: Constipation Melatonin (Melatonin 3 Mg Tablet) 6 mg PO BEDTIME PRN PRN Reason: Insomnia Methylprednisolone Sodium Succinate (Methylprednisolone Sod Succ 125 Mg/2 Ml Vial) 60 mg IVPUSH BID [facility] Last Admin: 06/09/24 08:03 Dose: 60 mg Morphine Sulfate (Morphine Sulfate 4 Mg/Ml Cartridge) 4 mg IVPUSH Q4H PRN; Protocol PRN Reason: Pain, Severe (Pain Scale 7-10) Last Admin: 06/09/24 08:48 Dose: 4 mg Omeprazole (Omeprazole 20 Mg Capsule.Dr) 20 mg PO DAILY@0630 [facility] Ondansetron HCl (Ondansetron Hcl 4 Mg/2 Ml Vial) 4 mg IVPUSH Q8H PRN PRN Reason: Nausea and Vomiting Pharmacy Consult (Consult Rx Vancomycin Dosing) 1 each MISCELLANE DAILY PRN PRN Reason: Consult order Quetiapine Fumarate (Quetiapine Fumarate 300 Mg Tablet) 300 mg PO BEDTIME [facility] Senna/Docusate Sodium (Sennosides/Docusate Sodium Tablet) 1 tab PO DAILY [facility] Last Admin: 06/09/24 08:42 Dose: Not Given Sodium Chloride (0.9 % Sodium Chloride Flush 3 Ml Syringe) 3 ml IVFLUSH QSHIFT [facility] Last Admin: 06/09/24 08:03 Dose: 3 ml Vitamin D (Cholecalciferol (Vitamin D3) 25 Mcg Tablet) 50 mcg PO DAILY [facility] Last Admin: 06/09/24 08:30 Dose: Not Given Zolpidem Tartrate (Zolpidem Tartrate 5 Mg Tablet) 10 mg PO BEDTIME [facility] Home Medications ?Medication ?Instructions ?Recorded ?Confirmed ?Type cetirizine 10 mg tablet 10 mg PO DAILY 07/18/20 06/08/24 History clonazepam 1 mg tablet 1 mg PO BID 07/18/20 06/08/24 History cyanocobalamin (vitamin B-12) 1,000 mcg IM QMONTH 07/18/20 06/08/24 History 1,000 mcg/mL injection solution levothyroxine 137 mcg capsule 137 mcg PO DAILY@0600 07/18/20 06/08/24 History (Tirosint) lisinopril 2.5 mg tablet 2.5 mg PO DAILY 07/18/20 06/08/24 History omeprazole 20 mg capsule,delayed 20 mg PO DAILY 07/18/20 06/08/24 History release acetaminophen 500 mg tablet 1,000 mg PO QID PRN Pain 08/25/20 06/08/24 History (Tylenol Extra Strength) dicyclomine 10 mg capsule 20 mg PO TID 12/11/20 06/08/24 History cyclobenzaprine 10 mg tablet 10 mg PO BEDTIME PRN Muscle Spasms 12/26/20 06/08/24 History aspirin 81 mg tablet,delayed 81 mg PO DAILY 07/03/21 06/08/24 History release (Adult Low Dose Aspirin) cholecalciferol (vitamin D3) 50 50 mcg PO DAILY 07/03/21 06/08/24 History mcg (2,000 unit) capsule zolpidem 10 mg tablet 10 mg PO BEDTIME 07/03/21 06/08/24 History betamethasone, augmented 0.05 % 1 appl topical DAILY PRN Flares 06/08/24 06/08/24 History topical ointment clobetasol 0.05 % topical ointment 1 appl topical BID PRN Itchiness 06/08/24 06/08/24 History duloxetine 20 mg capsule,delayed 40 mg PO BEDTIME 06/08/24 06/08/24 History release glucagon 3 mg/actuation nasal 3 mg intranasal DIRECTED 06/08/24 06/08/24 History spray (Baqsimi) hydrochlorothiazide 12.5 mg tablet 12.5 mg PO DAILY 06/08/24 06/08/24 History insulin glargine U-300 conc 300 120 unit subcut DAILY 06/08/24 06/08/24 History unit/mL (3 mL) subcutaneous pen (Toujeo Max U-300 SoloStar) insulin lispro 100 unit/mL 1 sliding scale dose subcut 06/08/24 06/08/24 History subcutaneous pen USEASDIRECTD ketotifen fumarate 0.025 % (0.035 1 drp ophthalmic (eye) BID PRN 06/08/24 06/08/24 History %) eye drops (Eye Itch Relief) Itchiness quetiapine 300 mg tablet 300 mg PO BEDTIME 06/08/24 06/08/24 History sennosides 8.6 mg-docusate sodium 1 tab-cap PO DAILY 06/08/24 06/08/24 History 50 mg tablet (Senna Plus) tacrolimus 0.1 % topical ointment 1 appl topical BID PRN Flares 06/08/24 06/08/24 History tirzepatide 5 mg/0.5 mL 10 mg subcut QWEEK 06/08/24 06/08/24 History subcutaneous pen injector (Shun) Allergies Allergy/AdvReac Type Severity Reaction Status Date / Time ibuprofen [IBUPROFEN] Allergy Mild RASH Verified 06/07/24 19:14 Physical Exam Vital signs: Vital Signs Temp 100.4 F 06/09/24 07:17 Pulse 108 H 06/09/24 07:17 Resp 20 06/09/24 07:17 BP 143/64 H 06/09/24 07:17 Pulse Ox 92 06/09/24 07:17 O2 Del Method Nasal Cannula 06/09/24 07:17 O2 Flow Rate 3 06/09/24 07:17 Intake & Output 06/08/24 06/09/24 06/09/24 18:59 06:59 18:59 Intake Total 2600 / 3210 610 / 3210 Output Total 700 / 700 Balance 2600 / 2510 -90 / 2510 Urine Output (Average ml/kg/hr) 0.56 Intake: Intake, Oral Amount 350 / 350 Intake, IV Amount 2600 / 2860 260 / 2860 Acetaminophen 1,000 mg In 100 100 / 100 ml @ 400 mls/hr IV ONCE ONE Rx# :[id number] Lactated Ringers 1,000 ml @ 2000 / 2000 1400 mls/hr IV .Q43M STA Rx#: [id number] Magnesium Sulfate/H2O 2 gm In 50 / 50 50 ml @ 25 mls/hr IV ONCE ONE Rx#:[id number] cefEPime HCl 2 gm In 0.9 % 50 / 100 50 / 100 Sodium Chloride 50 ml @ 100 mls /hr IV Q12H LANE Rx#:[id number] vancomycin HCL 500 mg In 0.9 % 110 / 110 Sodium Chloride 100 ml @ 110 mls/hr IV Q12H [facility] Rx#: [id number] vancomycin/NS 2,000 mg In 500 500 / 500 ml @ 250 mls/hr IV ONCE ONE Rx# :[id number] Output: Output, Urine Amount 700 / 700 Output, Stool Amount 0 / 0 Other: Number of Incontinent Voids 0 Number of Unmeasured Voids 0 Number of Bowel Movements 0 Urine purwick Urine Color Annel Last Bowel Movement 06/04/24 Stool Incontinent Weight 103.9 kg Weight in Grams [id number] Weight 103.9 kg - Constitutional Present: mild distress, obese - Routine HEENT Exam Head: Present: normal inspection Eye: Present: EOMI - Routine Neck Exam Absent: lymphadenopathy - Routine Respiratory Exam Absent: accessory muscle use - Routine Cardiovascular Exam Cardiovascular: Present: S1, S2 - Routine Abdominal Exam Present: soft. Absent: tenderness - Routine Extremities Exam Present: tenderness - Routine Skin Exam Present: intact. Absent: erythema, rash - Routine Neurological Exam Present: alert, oriented X3 Hem/Onc Consult Result - Labs CBC & Chem 7: 06/09/24 06:36 06/09/24 06:36 Labs: Short CBC 06/09/24 Range/Units 06:36 WBC 16.4 H (4.8-10.8) X10*3/uL Hgb 13.1 (12.0-16.0) g/dl Hct 40.9 (37.0-47.0) % Plt Count 88 L (160-400) X10*3/uL BMP 06/09/24 06:36 Sodium 133 L Potassium 5.0 D Chloride 96 Carbon Dioxide 23 BUN 19 H Creatinine 1.51 H Calcium 9.2 Liver Function 06/09/24 Range/Units 06:36 Total Bilirubin 1.5 H (0.0-1.0) mg/dL AST 16 (5-31) U/L ALT 20 (0-31) U/L Alkaline Phosphatase 44 (39-117) U/L Albumin 3.3 L (3.5-5.0) g/dL Assessment and Plan Patient Active problem list reviewed?: Yes (1) Chronic ITP (idiopathic thrombocytopenia) Status: Acute Assessment and plan: 1. This is a 58-year-old woman was diagnosed with ITP/autoimmune thrombocytopenia in 2019. She had a bone marrow biopsy back then which confirmed the same. She received rituximab in 2019 which she tolerated well. Because of decreasing platelets, she was restarted on rituximab in 06/01/2024. Two days after she received week 2 of treatment she developed diffuse body aches, swelling without rash, fever and malaise. Pain progressed to the point where she could not walk, she was tender in all her joints and extremities. Evaluation in the emergency department revealed fever of 101 0.1 degree F with sinus tachycardia. She had leukocytosis and elevated ESR. Procalcitonin was also found to be elevated. She was started on empiric broad-spectrum antibiotics although there was no focus of infection. Blood cultures thus far are negative. Because of timing of her symptoms after rituximab, serum sickness was a strong possibility. I therefore recommended steroids as well. Continue with current management. ID consultation is pending. Dr. Khoury will see the patient tomorrow. I thank you for the consult - Time Spent With Patient Time Spent with Patient (in minutes): 30
[2024-06-09] MEDS: Lactated Ringers 1,000 ML 125 ML IVCONT ×2 (10:52→18:45)
[2024-06-09 11:11] LABS: Glucose, Whole Blood 330 mg/dL (60-115)
[2024-06-09 11:32] VITALS: BP 116/56; PULSE 88; RESP 14; TEMP 36.3; O2SAT 96
[2024-06-09 13:42] LABS: Lactate Dehydrogenase 239 U/L (122-220)
[2024-06-09 13:58] LABS: Adenovirus PCR Not Detected (Not Detect.); Bordetella parapertussis PCR Not Detected (Not Detect.); Bordetella pertussis PCR Not Detected (Not Detect.); Chlamydia pneumoniae PCR Not Detected (Not Detect.); Coronavirus 229E PCR Not Detected (Not Detect.); Coronavirus HKU1 PCR Not Detected (Not Detect.); Coronavirus NL63 PCR Not Detected (Not Detect.); Coronavirus OC43 PCR Not Detected (Not Detect.); Human metapneumovirus PCR Not Detected (Not Detect.); Influenza A PCR Not Detected (Not Detect.); Influenza B PCR Not Detected (Not Detect.); Mycoplasma pneumoniae PCR Not Detected (Not Detect.); Parainfluenza 1 PCR Not Detected (Not Detect.); Parainfluenza 2 PCR Not Detected (Not Detect.); Parainfluenza 3 PCR Not Detected (Not Detect.); Parainfluenza 4 PCR Not Detected (Not Detect.); RSV PCR Not Detected (Not Detect.); Rhino/Enterovirus PCR Not Detected (Not Detect.)
[2024-06-09 14:13] LABS: SARS-CoV-2 PCR Not Detected (Not Detect.)
[2024-06-09 15:15] VITALS: BP 130/63; PULSE 100; RESP 20; TEMP 36.1; O2SAT 95
--- NOTE | 2024-06-09 15:50 | P.PNIM_ITS ---
Subjective Subjective Date of Service: 06/09/24 Interval History: This history was taken in [place] from the patient. Tmax 101.5 overnight C/o severe joint pains- ankles, knees C/o frontal PEREZ + sore throat with dysphagia + odynophagia without globus sensation Not coughing but having whitish sputum No abd pain No chest pain Was treated with rituximab in 2019; restarted 05/28 and got another dose 06/04 for ITP Review of Systems Review of Systems: Yes all other systems are reviewed and are negative Physical Exam 2 Vital Signs: Vital Signs: Last Vital Signs Temp 97.0 F 06/09/24 15:15 Pulse 100 06/09/24 15:15 Resp 20 06/09/24 15:15 BP 130/63 06/09/24 15:15 Pulse Ox 95 06/09/24 15:15 O2 Del Method Nasal Cannula 06/09/24 15:15 O2 Flow Rate 3 06/09/24 15:15 BMI result Body Mass Index 46.3 Gen: ill-appearing HEENT: sclera anicteric, moist mucus membranes, no oral lesions Neck: bilateral tenderness Lungs: diminished Heart: regular, tachycardic, no murmurs Abd: soft, non-tender, non-distended, obese Ext: 2+ BLE + BUE edema, pain with ROM of ankles + knees Skin: warm/well-perfused Neuro: alert and oriented x3, no focal findings Psych: appropriate affect Objective Data Active Medications Acetaminophen (Acetaminophen 325 Mg Tablet) 650 mg PO Q6H PRN PRN Reason: Pain, Mild (Pain Scale 1-3), fever or headache Aspirin (Aspirin Enteric Coated 81 Mg Tablet.) 81 mg PO DAILY [facility] Last Admin: 06/09/24 08:29 Dose: Not Given Documented By: ANDRÉS Non-Admin Reason: Patient Refused Atorvastatin Calcium (Atorvastatin Calcium 80 Mg Tablet) 80 mg PO DAILY [facility] Last Admin: 06/09/24 08:30 Dose: Not Given Documented By: ANDRÉS Non-Admin Reason: Patient Refused Atovaquone (Atovaquone 750 Mg/5 Ml Oral.Susp) 750 mg PO BID [facility] Last Admin: 06/09/24 14:36 Dose: Not Given Documented By: ANDRÉS Non-Admin Reason: Patient Refused Calcium Carbonate (Calcium Carbonate 750 Mg Tab.Chew) 750 mg PO Q4H PRN PRN Reason: Heartburn Clonazepam (Clonazepam 1 Mg Tablet) 1 mg PO BID [facility] Last Admin: 06/09/24 08:30 Dose: Not Given Documented By: ANDRÉS Non-Admin Reason: Patient Refused Cyclobenzaprine HCl (Cyclobenzaprine Hcl 10 Mg Tablet) 10 mg PO BEDTIME PRN PRN Reason: Muscle Spasms Dicyclomine HCl (Dicyclomine Hcl 10 Mg Capsule) 20 mg PO TID [facility] Last Admin: 06/09/24 08:30 Dose: Not Given Documented By: ANDRÉS Non-Admin Reason: Patient Refused Duloxetine HCl (Duloxetine Hcl 20 Mg Capsule.) [address] Ferrous Sulfate (Ferrous Sulfate 324 Mg Tablet.) 324 mg PO DAILY [facility] Last Admin: 06/09/24 08:30 Dose: Not Given Documented By: ANDRÉS Non-Admin Reason: Patient Refused Glucose (Glucose Gel 15 Gm Gel..Gram.) 15 gm PO Q15M PRN; Protocol PRN Reason: per Hypoglycemia Standing Ord. Cefepime HCl 2 gm/ Sodium (Chloride) 50 mls @ 100 mls/hr IV Q12H [facility] Last Infusion: 06/09/24 01:35 Dose: Infused Documented By: JULIO CESAR Vancomycin HCl 500 mg/ Sodium (Chloride) 110 mls @ 110 mls/hr IV Q12H [facility] Last Infusion: 06/09/24 02:46 Dose: Infused Documented By: JULIO CESAR Dextrose (D10) 250 mls @ 750 mls/hr IV Q15M PRN; Protocol PRN Reason: per Hypoglycemia Standing Ord. Lactated Ringer's (Lr) 1,000 mls @ 125 mls/hr IVCONT .Q8H [facility] Last Admin: 06/09/24 10:52 Dose: 125 mls/hr Documented By: ANDRÉS Insulin Glargine (Insulin Glargine,Hum.Rec.Anlog 100 Unit/Ml 10 Ml Vial) 60 unit SUBCUT BEDTIME [facility] Insulin Human Lispro (Insulin Lispro 100 Unit/Ml 3 Ml Vial) 0 unit SUBCUT QIDACHS [facility]; Protocol Last Admin: 06/09/24 11:52 Dose: 20 unit Documented By: ANDRÉS Levothyroxine Sodium (Levothyroxine Sodium 112 Mcg Tablet) 112 mcg PO DAILY@0600 [facility] Levothyroxine Sodium (Levothyroxine Sodium 25 Mcg Tablet) 25 mcg PO DAILY@0600 [facility] Loratadine (Loratadine 10 Mg Tablet) 10 mg PO DAILY [facility] Last Admin: 06/09/24 08:42 Dose: Not Given Documented By: ANDRÉS Non-Admin Reason: Patient Refused Magnesium Hydroxide (Milk Of Magnesia 30 Ml Oral.Susp) 30 ml PO DAILY PRN PRN Reason: Constipation Melatonin (Melatonin 3 Mg Tablet) 6 mg PO BEDTIME PRN PRN Reason: Insomnia Methylprednisolone Sodium Succinate (Methylprednisolone Sod Succ 125 Mg/2 Ml Vial) 60 mg IVPUSH BID [facility] Last Admin: 06/09/24 08:03 Dose: 60 mg Documented By: ANDRÉS Morphine Sulfate (Morphine Sulfate 4 Mg/Ml Cartridge) 4 mg IVPUSH Q4H PRN; Protocol PRN Reason: Pain, Severe (Pain Scale 7-10) Last Admin: 06/09/24 08:48 Dose: 4 mg Documented By: ANDRÉS Omeprazole (Omeprazole 20 Mg Capsule.Dr) 20 mg PO DAILY@0630 [facility] Ondansetron HCl (Ondansetron Hcl 4 Mg/2 Ml Vial) 4 mg IVPUSH Q8H PRN PRN Reason: Nausea and Vomiting Pharmacy Consult (Consult Rx Vancomycin Dosing) 1 each MISCELLANE DAILY PRN PRN Reason: Consult order Quetiapine Fumarate (Quetiapine Fumarate 300 Mg Tablet) 300 mg PO BEDTIME [facility] Senna/Docusate Sodium (Sennosides/Docusate Sodium Tablet) 1 tab PO DAILY [facility] Last Admin: 06/09/24 08:42 Dose: Not Given Documented By: ANDRÉS Non-Admin Reason: Patient Refused Sodium Chloride (0.9 % Sodium Chloride Flush 3 Ml Syringe) 3 ml IVFLUSH QSHIFT [facility] Last Admin: 06/09/24 08:03 Dose: 3 ml Documented By: ANDRÉS Vitamin D (Cholecalciferol (Vitamin D3) 25 Mcg Tablet) 50 mcg PO DAILY [facility] Last Admin: 06/09/24 08:30 Dose: Not Given Documented By: ANDRÉS Non-Admin Reason: Patient Refused Zolpidem Tartrate (Zolpidem Tartrate 5 Mg Tablet) 10 mg PO BEDTIME [facility] Labs 06/09/24 06:36 06/09/24 06:36 Labs: Laboratory Results - last 24 hr 06/08/24 06/08/24 06/08/24 19:09 20:36 21:06 MCV MCH MCHC RDW Plt Count MPV Absolute Nucleated RBC Nucleated RBC % (auto) Anion Gap Estim Creat Clear Calc Estimated GFR POC Glucose 293 H 312 H 310 H Random Glucose Calcium Magnesium Total Bilirubin AST ALT Alkaline Phosphatase Lactate Dehydrogenase Total Protein Albumin Procalcitonin Respiratory Panel [place] Adenovirus (Rapid PCR) B.pert (TEM-PCR) B.parapertussis DNA PCR C. pneumoniae DNA (PCR) Coronavirus OC43 (PCR) Coronavirus HKU1 (PCR) Coronavirus 229E (PCR) Coronavirus NL63 (PCR) Human Metapneumovir PCR Influenza A (RT-PCR) Influenza B (RT-PCR) M. pneumoniae (PCR) Parainfluenza 1 (PCR) Parainfluenza 2 (PCR) Parainfluenza 3 (PCR) Parainfluenza 4 (PCR) RSV (PCR) Entero/Rhino (PCR) SARS-CoV-2 RNA (RT-PCR) 06/09/24 06/09/24 06/09/24 00:12 06:36 06:55 MCV 79.6 L MCH 25.5 L MCHC 32.0 RDW 16.2 H Plt Count 88 L MPV Not Reportable Absolute Nucleated RBC 0.020 H Nucleated RBC % (auto) 0.1 Anion Gap 19 Estim Creat Clear Calc 42.2 Estimated GFR 35 POC Glucose 281 H 296 H Random Glucose 322 H Calcium 9.2 Magnesium 1.7 Total Bilirubin 1.5 H AST 16 ALT 20 Alkaline Phosphatase 44 Lactate Dehydrogenase 239 H Total Protein 7.0 Albumin 3.3 L Procalcitonin 11.21 Respiratory Panel [place] Adenovirus (Rapid PCR) B.pert (TEM-PCR) B.parapertussis DNA PCR C. pneumoniae DNA (PCR) Coronavirus OC43 (PCR) Coronavirus HKU1 (PCR) Coronavirus 229E (PCR) Coronavirus NL63 (PCR) Human Metapneumovir PCR Influenza A (RT-PCR) Influenza B (RT-PCR) M. pneumoniae (PCR) Parainfluenza 1 (PCR) Parainfluenza 2 (PCR) Parainfluenza 3 (PCR) Parainfluenza 4 (PCR) RSV (PCR) Entero/Rhino (PCR) SARS-CoV-2 RNA (RT-PCR) 06/09/24 06/09/24 10:55 12:00 MCV MCH MCHC RDW Plt Count MPV Absolute Nucleated RBC Nucleated RBC % (auto) Anion Gap Estim Creat Clear Calc Estimated GFR POC Glucose 330 H Random Glucose Calcium Magnesium Total Bilirubin AST ALT Alkaline Phosphatase Lactate Dehydrogenase Total Protein Albumin Procalcitonin Respiratory Panel [place] See Note Adenovirus (Rapid PCR) Not Detected B.pert (TEM-PCR) Not Detected B.parapertussis DNA PCR Not Detected C. pneumoniae DNA (PCR) Not Detected Coronavirus OC43 (PCR) Not Detected Coronavirus HKU1 (PCR) Not Detected Coronavirus 229E (PCR) Not Detected Coronavirus NL63 (PCR) Not Detected Human Metapneumovir PCR Not Detected Influenza A (RT-PCR) Not Detected Influenza B (RT-PCR) Not Detected M. pneumoniae (PCR) Not Detected Parainfluenza 1 (PCR) Not Detected Parainfluenza 2 (PCR) Not Detected Parainfluenza 3 (PCR) Not Detected Parainfluenza 4 (PCR) Not Detected RSV (PCR) Not Detected Entero/Rhino (PCR) Not Detected SARS-CoV-2 RNA (RT-PCR) Not Detected ITS Impressions Venous Duplex 06/07/24 23:16 IMPRESSION: No evidence of deep venous thrombosis involving the left lower extremity. Electronically signed by: Mark Burroughs MD 06/08/2024 12:10 AM EDT Soft Tissue Neck CT 06/08/24 15:00 IMPRESSION: Imaging findings consistent with calcific tendinitis of the longus colli musculature. Electronically signed by: Daniel Ramsey MD 06/08/2024 04:36 PM EDT RP Microbiology Microbiology Results: Microbiology 06/08/24 Unknown Urine Culture - Final Urine clean catch - Clean Catch Midstream Strep agalactiae (Grp B) 06/08/24 08:52 Blood Culture - Preliminary Blood - Venous No growth after 24 hours. 06/08/24 08:46 Blood Culture - Preliminary Blood - Venous No growth after 24 hours. Assessment and Plan (1) Serum sickness: Status: Acute Assessment and Plan: d2 58yo M with ITP recently started on rituximab (05/28 + 06/04/24) presenting with several days of diffuse arthralgias and fever SIRS suspected due to serum sickness-like reaction - however, at risk of infection given immunosuppression. discussed with ID ent consultant. continue vancomycin + cefepime and add doxycycline to cover tickborne illness and add atovaquone to cover PJP. does have GBS in urine though I do not think she is septic from this; regardless, it is covered by her current antibiotic regimen - follow blood cultures. PCT + CRP elevated; trend. - will scan head and pursue LP for CSF studies including COMFORT virus; also scan chest, abdomen, and pelvis with contrast suspected serum sickness-like reaction to rituximab - Heme-Onc consulted, continue methylprednisolone IV 60 mg bid; follow inflammatory markers dysphagia/odynophagia - strep screen negative, CT neck suggests only calcific tendinitis of the longus colli musculature. and mild reactive retropharyngeal effusion. may require upper GI series but in meanwhile will CT chest with constrast as above acute lactic acidosis - suspected due to SSLR but was given 30 cc/kg IV fluids per IBW DAY - likely prerenal from SSLR and will give LR resuscitation; hold lisinopril; recheck BMP in AM DM2 - basal-bolus insulin nonobstructive CAD - continue ASA, atorvastatin IBS - dicyclomine mood disorder - clonazepam, quetiapine, zolpidem, duloxetine hypothyroidism - continue LT4 morbid obesity - diet/exercise counseling VTE ppx - SCDs; no enoxaparin pending LP dispo - TBD In my clinical judgment, the patient requires continued inpatient hospitalization for the following reasons: fever, SSLR requiring steroids, IV ABX Total time managing care of this patient today: 55 minutes. Quality Stroke Does the patient have a stroke diagnosis?: No VTE Prior VTE?: No VTE Risk Level:: Medical - moderate - high VTE Device Contraindication: N/A - Device Ordered VTE Drug Contraindication: Treatment Not Indicated
--- NOTE | 2024-06-09 15:52 | HO.WOUND ---
Wound Consult: Initial 58yr old female? admitted to [facility] [place] on 06/08/24 - See progress notes and H&P for detailed history.? Wound consult placed for Coccyx wound POA .? Patient agreeable to assessment and photo documentation.? Buttock and Coccyx Etiology: MASD ??Present on Admission Measurements: 3cm x 0.4cm x 0.1cm Wound Bed: red moist wound bed macerated edges with red purple blanchable tissue Drainage / Odor: scant serosang Edges: ? linear Sujata wound: ? MASD - chronic MASD light blanchable purple tissue remains intact No Induration, Fluctuance or Warmth noted Pain: denies Goals of Treatment: ? Off load Pressure and barrier cream Recommendations: 1. Turn and Reposition every 2 hours and as needed for patient comfort.? Use pillows or wedges to support off loading positions. 2. Off Load all bony prominences with use of pillows and heel boots if needed.? Apply Preventative foams where needed. ? 3. Monitor for incontinence and moisture control, use barrier creams when needed for prevention and treatment. 4. Provide adequate and supplemental nutrition.? 5. Order or Continue low air loss mattress. 6. When applicable maintain blood glucose levels per Providers order. 7. Buttock and Coccyx - Off Load Pressure - Cleanse with PH balance spray or wipes, pat dry. ?Apply thin layer of Triad to wound bed - only pat and dab no scrub and rub when soiling occurs. Reapply thin layer PRN after each episode of incontinence. Re-consult wound care Nurse for wound deterioration or wound changes.
[2024-06-09] MEDS: iohexoL 350 MG/ML 100 ML INFUS..BTL 85 ML IV (16:19)
[2024-06-09 17:05] LABS: Glucose, Whole Blood 309 mg/dL (60-115)
[2024-06-09 19:33] VITALS: BP 127/60; PULSE 101; RESP 20; TEMP 36.7; O2SAT 91
[2024-06-09 20:50] LABS: Glucose, Whole Blood 313 mg/dL (60-115)
[2024-06-09] MEDS: Insulin Glargine,Hum.rec.anlog 100 UNIT/ML 10 ML VIAL 60 UNIT SUBCUT (21:40)
--- NOTE | 2024-06-09 22:38 | P.CNID_ITS ---
History of Present Illness Data of Consult Service Date: 06/09/24 Requesting physician: Zeus Wilkes Primary Care Provider: MD AI Ballesteros Reason for consult: leukocytosis She presents with weakness to ER. She has symptoms for a day. She has had two doses of Rituximab for ITP recently but had in past. She has some left hand weakness. Review of Systems 2 Review of Systems: Yes all other systems are reviewed and are negative [facility] Past Medical History Medical History (Updated 06/09/24 @ 22:51 by Sandra Adam MD) Left hand weakness Leukocytosis CAD (coronary artery disease) Migraines Anxiety and depression IBS (irritable bowel syndrome) Sleep apnea Obesity due to excess calories Atherosclerotic cardiovascular disease Vitamin D deficiency Obesity (BMI 30-39.9) Dyslipidemia Diabetic nephropathy associated with type 2 diabetes mellitus custodial (current) use of insulin Diabetes type 2, uncontrolled Asthma Pernicious anemia Diabetes mellitus Fibromyalgia GERD (gastroesophageal reflux disease) Hypertension Adult hypothyroidism Family History Family History Mother Diabetes Sister Stomach cancer Father Brother Colon cancer Brother Pancreas cancer Family history: reviewed and not pertinent Surgical History Surgical History H/O colonoscopy Hx of cataract surgery H/O: hysterectomy Social History Social History Household Members: Spouse Housing: Apartment Are you a primary auto care center manager to a significant other at home: No Do you presently have visiting nurse or other home services: Yes Alcohol intake: current Alcohol intake frequency: does not drink Patient Tobacco Use Status: Former Tobacco user Tobacco use type: Cigarette Smoked in Last 30 Days: No Use of substances other than those prescribed or required for medical reasons: No Currently Displaying Signs/Symptoms of Drug Intoxication Withdrawal: No Have you been hit, kicked, punched, or otherwise hurt by someone within the past year? If so, by whom?: No Do you feel safe in your current relationship?: Yes Is there a partner from a previous relationship who is making you feel unsafe now?: No Are you made to feel afraid or neglected: No Advance Directives: No Advance Directives Information Provided: No Recently lost weight without trying: Unsure How much weight loss: Unsure Eating poorly because of decreased appetite: Yes Nutrition screen score: 5 Nutrition Risks: Difficulty swallowing Patient : No : No Poor oral hygiene: No service: No Current occupational status: unemployed Current occupation: she lives with her . Meds Allergies Allergy/AdvReac Type Severity Reaction Status Date / Time ibuprofen [IBUPROFEN] Allergy Mild RASH Verified 06/07/24 19:14 Active Medications: Current Medications Acetaminophen (Acetaminophen 325 Mg Tablet) 650 mg PO Q6H PRN PRN Reason: Pain, Mild (Pain Scale 1-3), fever or headache Aspirin (Aspirin Enteric Coated 81 Mg Tablet.) 81 mg PO DAILY [facility] Last Admin: 06/09/24 08:29 Dose: Not Given Atorvastatin Calcium (Atorvastatin Calcium 80 Mg Tablet) 80 mg PO DAILY [facility] Last Admin: 06/09/24 08:30 Dose: Not Given Atovaquone (Atovaquone 750 Mg/5 Ml Oral.Susp) 750 mg PO BID [facility] Last Admin: 06/09/24 22:34 Dose: Not Given Calcium Carbonate (Calcium Carbonate 750 Mg Tab.Chew) 750 mg PO Q4H PRN PRN Reason: Heartburn Clonazepam (Clonazepam 1 Mg Tablet) 1 mg PO BID [facility] Last Admin: 06/09/24 22:34 Dose: Not Given Cyclobenzaprine HCl (Cyclobenzaprine Hcl 10 Mg Tablet) 10 mg PO BEDTIME PRN PRN Reason: Muscle Spasms Dicyclomine HCl (Dicyclomine Hcl 10 Mg Capsule) 20 mg PO TID [facility] Last Admin: 06/09/24 22:34 Dose: Not Given Duloxetine HCl (Duloxetine Hcl 20 Mg Capsule.) 40 mg PO BEDTIME [facility] Last Admin: 06/09/24 22:34 Dose: Not Given Ferrous Sulfate (Ferrous Sulfate 324 Mg Tablet.) 324 mg PO DAILY [facility] Last Admin: 06/09/24 08:30 Dose: Not Given Glucose (Glucose Gel 15 Gm Gel..Gram.) 15 gm PO Q15M PRN; Protocol PRN Reason: per Hypoglycemia Standing Ord. Dextrose (D10) 250 mls @ 750 mls/hr IV Q15M PRN; Protocol PRN Reason: per Hypoglycemia Standing Ord. Lactated Ringer's (Lr) 1,000 mls @ 125 mls/hr IVCONT .Q8H [facility] Last Admin: 06/09/24 18:45 Dose: 125 mls/hr Cefepime HCl 2 gm/ Sodium (Chloride) 50 mls @ 100 mls/hr IV Q12H [facility] Last Infusion: 06/09/24 17:42 Dose: Infused Vancomycin HCl 500 mg/ Sodium (Chloride) 110 mls @ 110 mls/hr IV Q12H [facility] Last Admin: 06/09/24 21:37 Dose: 110 mls/hr Insulin Glargine (Insulin Glargine,Hum.Rec.Anlog 100 Unit/Ml 10 Ml Vial) 60 unit SUBCUT BEDTIME [facility] Last Admin: 06/09/24 21:40 Dose: 60 unit Insulin Human Lispro (Insulin Lispro 100 Unit/Ml 3 Ml Vial) 0 unit SUBCUT QIDACHS [facility]; Protocol Last Admin: 06/09/24 21:39 Dose: 20 unit Levothyroxine Sodium (Levothyroxine Sodium 112 Mcg Tablet) 112 mcg PO DAILY@0600 [facility] Levothyroxine Sodium (Levothyroxine Sodium 25 Mcg Tablet) 25 mcg PO DAILY@0600 [facility] Loratadine (Loratadine 10 Mg Tablet) 10 mg PO DAILY [facility] Last Admin: 06/09/24 08:42 Dose: Not Given Magnesium Hydroxide (Milk Of Magnesia 30 Ml Oral.Susp) 30 ml PO DAILY PRN PRN Reason: Constipation Melatonin (Melatonin 3 Mg Tablet) 6 mg PO BEDTIME PRN PRN Reason: Insomnia Methylprednisolone Sodium Succinate (Methylprednisolone Sod Succ 125 Mg/2 Ml Vial) 60 mg IVPUSH BID [facility] Last Admin: 06/09/24 21:34 Dose: 60 mg Morphine Sulfate (Morphine Sulfate 4 Mg/Ml Cartridge) 4 mg IVPUSH Q4H PRN; Protocol PRN Reason: Pain, Severe (Pain Scale 7-10) Last Admin: 06/09/24 21:31 Dose: 4 mg Omeprazole (Omeprazole 20 Mg Capsule.Dr) 20 mg PO DAILY@0630 [facility] Ondansetron HCl (Ondansetron Hcl 4 Mg/2 Ml Vial) 4 mg IVPUSH Q8H PRN PRN Reason: Nausea and Vomiting Pharmacy Consult (Consult Rx Vancomycin Dosing) 1 each MISCELLANE DAILY PRN PRN Reason: Consult order Quetiapine Fumarate (Quetiapine Fumarate 300 Mg Tablet) 300 mg PO BEDTIME [facility] Last Admin: 06/09/24 22:34 Dose: Not Given Senna/Docusate Sodium (Sennosides/Docusate Sodium Tablet) 1 tab PO DAILY [facility] Last Admin: 06/09/24 08:42 Dose: Not Given Sodium Chloride (0.9 % Sodium Chloride Flush 3 Ml Syringe) 3 ml IVFLUSH QSHIFT [facility] Last Admin: 06/09/24 17:10 Dose: 3 ml Vitamin D (Cholecalciferol (Vitamin D3) 25 Mcg Tablet) 50 mcg PO DAILY [facility] Last Admin: 06/09/24 08:30 Dose: Not Given Zolpidem Tartrate (Zolpidem Tartrate 5 Mg Tablet) 10 mg PO BEDTIME [facility] Last Admin: 06/09/24 22:35 Dose: Not Given Home Medications ?Medication ?Instructions ?Recorded ?Confirmed ?Last Taken ?Type cetirizine 10 mg tablet 10 mg PO DAILY 07/18/20 06/08/24 Unknown History clonazepam 1 mg tablet 1 mg PO BID 07/18/20 06/08/24 Unknown History cyanocobalamin (vitamin B-12) 1,000 mcg IM QMONTH 07/18/20 06/08/24 Unknown History 1,000 mcg/mL injection solution levothyroxine 137 mcg capsule 137 mcg PO DAILY@0600 07/18/20 06/08/24 Unknown History (Tirosint) lisinopril 2.5 mg tablet 2.5 mg PO DAILY 07/18/20 06/08/24 Unknown History omeprazole 20 mg capsule,delayed 20 mg PO DAILY 07/18/20 06/08/24 Unknown History release acetaminophen 500 mg tablet 1,000 mg PO QID PRN Pain 08/25/20 06/08/24 Unknown History (Tylenol Extra Strength) dicyclomine 10 mg capsule 20 mg PO TID 12/11/20 06/08/24 Unknown History cyclobenzaprine 10 mg tablet 10 mg PO BEDTIME PRN Muscle Spasms 12/26/20 06/08/24 Unknown History aspirin 81 mg tablet,delayed 81 mg PO DAILY 07/03/21 06/08/24 10/20/23 History release (Adult Low Dose Aspirin) cholecalciferol (vitamin D3) 50 50 mcg PO DAILY 07/03/21 06/08/24 Unknown History mcg (2,000 unit) capsule zolpidem 10 mg tablet 10 mg PO BEDTIME 07/03/21 06/08/24 Unknown History betamethasone, augmented 0.05 % 1 appl topical DAILY PRN Flares 06/08/24 06/08/24 Unknown History topical ointment clobetasol 0.05 % topical ointment 1 appl topical BID PRN Itchiness 06/08/24 06/08/24 Unknown History duloxetine 20 mg capsule,delayed 40 mg PO BEDTIME 06/08/24 06/08/24 Unknown History release glucagon 3 mg/actuation nasal 3 mg intranasal DIRECTED 06/08/24 06/08/24 Unknown History spray (Baqsimi) hydrochlorothiazide 12.5 mg tablet 12.5 mg PO DAILY 06/08/24 06/08/24 Unknown History insulin glargine U-300 conc 300 120 unit subcut DAILY 06/08/24 06/08/24 Unknown History unit/mL (3 mL) subcutaneous pen (Toujeo Max U-300 SoloStar) insulin lispro 100 unit/mL 1 sliding scale dose subcut 06/08/24 06/08/24 Unknown History subcutaneous pen USEASDIRECTD ketotifen fumarate 0.025 % (0.035 1 drp ophthalmic (eye) BID PRN 06/08/24 06/08/24 Unknown History %) eye drops (Eye Itch Relief) Itchiness quetiapine 300 mg tablet 300 mg PO BEDTIME 06/08/24 06/08/24 Unknown History sennosides 8.6 mg-docusate sodium 1 tab-cap PO DAILY 06/08/24 06/08/24 Unknown History 50 mg tablet (Senna Plus) tacrolimus 0.1 % topical ointment 1 appl topical BID PRN Flares 06/08/24 06/08/24 Unknown History tirzepatide 5 mg/0.5 mL 10 mg subcut QWEEK 06/08/24 06/08/24 Unknown History subcutaneous pen injector (Shun) Physical Exam 2 Vital Signs: Vital Signs: Last Vital Signs Temp 98.1 F 06/09/24 19:33 Pulse 101 H 06/09/24 19:33 Resp 20 06/09/24 19:33 BP 127/60 06/09/24 19:33 Pulse Ox 91 L 06/09/24 19:33 O2 Del Method Nasal Cannula 06/09/24 19:33 O2 Flow Rate 3 06/09/24 19:33 BMI result Body Mass Index 46.3 Const: General: cooperative HEENT: Head: Yes normal to inspection Face and sinus: Yes normal facial exam Mouth: Normal oral and palatal mucosa present Teeth and gingiva: d entition normal Eyes: General: appearance normal, both eyes and all related structures P upils: Equal, round and reactive pupils present Resp: Effort & Inspection: normal respiratory effort Cardio: Rate: regular rate Rhythm: regular rhythm GI: Palpation (GI): Soft to palpation and nontender : General: Yes no CVA tenderness Back/Spine/Pelvis: Back: no CVA tenderness Skin: General skin exam: no rashes or lesions noted Neuro: General: moves all extremities Cranial nerves: Yes Equal, round and reactive pupils present Extrem: General: Yes normal to inspection Psych: Appearance: grossly normal Results Labs 06/09/24 06:36 06/09/24 06:36 Labs: Short CBC 06/09/24 Range/Units 06:36 WBC 16.4 H (4.8-10.8) X10*3/uL Hgb 13.1 (12.0-16.0) g/dl Hct 40.9 (37.0-47.0) % Plt Count 88 L (160-400) X10*3/uL BMP 06/09/24 06:36 Sodium 133 L Potassium 5.0 D Chloride 96 Carbon Dioxide 23 BUN 19 H Creatinine 1.51 H Calcium 9.2 Liver Function 06/09/24 Range/Units 06:36 Total Bilirubin 1.5 H (0.0-1.0) mg/dL AST 16 (5-31) U/L ALT 20 (0-31) U/L Alkaline Phosphatase 44 (39-117) U/L Albumin 3.3 L (3.5-5.0) g/dL Microbiology Microbiology Results: Microbiology 06/08/24 Unknown Urine clean catch - Clean Catch Midstream Urine Culture - Final Strep agalactiae (Grp B) 06/08/24 08:52 Blood - Venous Blood Culture - Preliminary No growth after 24 hours. 06/08/24 08:46 Blood - Venous Blood Culture - Preliminary No growth after 24 hours. Assessment and Plan (1) Chronic ITP (idiopathic thrombocytopenia): Status: Acute (2) Leukocytosis: Status: Acute (3) Left hand weakness: Status: Acute Plan She has left hand weakness and leukocytosis. She received Rituximab 05/28 and 06/04 apparently. She may have CVA, she may have early pneumonia including atypical such as PJP There is also possible tick borne infection such as anaplasmosis. There could be PE. CT head evaluate stroke and LP COMFORT virus,cell count and diff and AFB and fungus. Would check CT chest r/o PE. Also check CT abdomen and pelvis. Recheck HIV test. For now would give Doxycycline 100 mg bid for possible tickborne /atypical. Also would give Mepron immunosuppression PJP 750 bid. Continue Vancomycin and Cefepime for now.
[2024-06-10] VITALS (8 sets, daily range): BP systolic 116–169; BP diastolic 62–83; PULSE 78–98; RESP 16–20; TEMP 36.3–37.4; O2SAT 92–98
[2024-06-10] MEDS: Morphine Sulfate 4 MG/ML CARTRIDGE IVPUSH ×3 (02:46→22:53)
[2024-06-10] MEDS: Atovaquone 750 MG/5 ML ORAL.SUSP PO (04:33)
[2024-06-10] MEDS: cefEPime HCl 2 GM in 0.9 % Sodium Chloride 50 ML IV ×2 (04:38→16:00)
[2024-06-10] MEDS: Lactated Ringers 1,000 ML 125 ML IVCONT (04:42)
[2024-06-10 07:11] LABS: Glucose, Whole Blood 315 mg/dL (60-115)
[2024-06-10 08:13] LABS: Hematocrit 37.4 % (37.0-47.0); Hemoglobin 12.1 g/dl (12.0-16.0); Mean Corpuscular HGB Conc 32.4 g/dl (31.0-35.0); Mean Corpuscular Hemoglobin 25.7 pg (27.0-33.0); Mean Corpuscular Volume 79.4 fL (80.0-98.0); NRBC Pct Auto 0.2 /100WBC (0.0-0.2); PLT CLUMP 1; Red Blood Count 4.71 X10*6/uL (4.20-5.50); Red Cell Distribution Width 15.9 % (11.0-16.0)
[2024-06-10] MEDS: Insulin Lispro 100 UNIT/ML 3 ML VIAL SUBCUT ×4 (08:20→22:55)
[2024-06-10] MEDS: methylPREDNISolone Sod Succ 125 MG/2 ML VIAL 60 MG IVPUSH ×2 (08:20→22:26)
[2024-06-10] MEDS: 0.9 % Sodium Chloride Flush 3 ML SYRINGE IVFLUSH ×4 (08:22→22:41)
[2024-06-10 08:23] LABS: Vancomycin Random 8.1 mcg/mL (15-20)
[2024-06-10 08:47] LABS: HIV AB/AG Nonreactive (Nonreactive); HIV Num 1 0.06 S/CO (0.00-0.99)
[2024-06-10 08:49] LABS: Alanine Aminotransferase 18 U/L (0-31); Alkaline Phosphatase 56 U/L (39-117); Anion Gap 14 (12-20); Aspartate Amino Transferase 17 U/L (5-31); Bilirubin Total 0.7 mg/dL (0.0-1.0); Blood Urea Nitrogen 35 mg/dL (9-16); Calcium 9.2 mg/dL (8.4-10.2); Carbon Dioxide 27 mmol/L (22-29); Chloride 96 mmol/L (96-108); Estimated Glomerular Filt Rate 42; Glucose Random 355 mg/dL (60-115); Magnesium 2.3 mg/dL (1.6-2.6); Potassium 5.8 mmol/L (3.3-5.1); Sodium 131 mmol/L (135-145); Total Protein 6.7 g/dL (6.5-8.0)
--- NOTE | 2024-06-10 09:02 | HE.PHANOTE ---
Re: [facility] Renal Function has improved. Trough returned at 8.1. Dose increased to 750mg q12h, with predicted AUC 454, and predicted trough 15. Next trough 06/11 @1900.
[2024-06-10] MEDS: vancomycin HCL 750 MG in 0.9 % Sodium Chloride 250 ML 265 MG IV ×2 (09:08→22:25)
[2024-06-10 09:15] LABS: C Reactive Protein 51.28 mg/dL (< or = 0.50)
[2024-06-10 09:52] LABS: Platelet Count 142 X10*3/uL (160-400)
[2024-06-10 10:30] LABS: White Blood Count 17.9 X10*3/uL (4.8-10.8)
[2024-06-10 10:53] LABS: Glucose, Whole Blood 381 mg/dL (60-115)
--- NOTE | 2024-06-10 12:25 | PM.HEMONCPN ---
Medical Summary - Medical Summary Date of Service: 06/10/24 Chief complaint: Follow-up for: ITP. Primary Care Provider: Katelynn Guzman MD Medical Summary: Diagnosis: ITP Rituximab in 2019 Bone marrow results from 06/13/20: Bone marrow, aspirate, clot and biopsy: - Mildly hypercellular marrow with maturing trilineage hematopoiesis. - Megakaryocyte hyperplasia. - Reduced iron stores. The patient's pancytopenia is noted. No evidence of dysplasia or a marrow infiltrative process is seen. The megakaryocyte hyperplasia may be compensatory due to peripheral destruction of platelets. Flow cytometry and cytogenetics: LEFT-SHIFTED MYELOPOIESIS, 1% MYELOBLASTS Myeloid forms exhibit immunophenotypic evidence of left-shifted maturation with no detectable aberrant marker expression. Blasts are not increased. Monocytes are immunophenotypically mature, comprise 4% of WBCs, and express partial aberrant CD56. Lymphocytes include normal precursor B cells/hematogones, polyclonal mature B cells, NK cells and immunophenotypically normal CD4+ and CD8+ T cells in normal proportions. No evidence of a clonal lymphoid expansion. Correlate with morphologic findings and cytogenetic studies for further evaluation of the significance of the observed left-shifted myelopoiesis. Interval History Interval history: Bhavna Zavaleta is a 58 year old lady with ITP who was admitted on 06/07 for fevers and body aches. Patient received 2nd dose of rituximab on 06/04/2024 for treatment of ITP. On 06/07/2024 she developed fever, body swelling and diffuse arthralgias. She reports difficulty swallowing and sputum production although she does not have cough. She reports nausea and poor appetite. She is very tender especially over her lower extremities and feet. She has a longstanding diabetic but she says she never had this kind of pain before. She is unable to walk. She does have history of arthritis. She denies abdominal pain or diarrhea. No dysuria, frequency or urgency. CBC from 06/07: WBC 12.9, HGB 12.5, HCT 38.3, PLT 62. PAST MEDICAL HISTORY: She received rituximab in 2019, she tolerated that well. Review of Systems - Constitutional Reports no additional constitutional complaints, Reports fatigue, Reports fever(s), Reports lack of energy, Reports malaise, Denies night sweats - Eyes Reports no additional eye complaints - ENT Reports no additional ear, nose, mouth, and throat complaints - Cardiovascular Reports no additional cardiovascular complaints - Respiratory Reports no additional respiratory complaints - Gastrointestinal Reports no additional gastrointestinal complaints - Genitourinary Reports no additional female genitourinary complaints - Musculoskeletal Reports no additional musculoskeletal complaints - Integumentary/Breasts Skin/Breast: Reports no additional skin complaints - Neurologic Reports no additional neurologic complaints - Psychiatric Reports no additional psychiatric complaints - Endocrine Reports no additional endocrine complaints - Hematologic/Lymphatic Reports no additional hematologic/lymphatic complaints - Allergic/Immunologic Reports no additional allergic/immunologic complaints PMFSH Medical History: Medical History (Last Reviewed 06/11/24 @ 14:01 by Bety Vivas PT) Adult hypothyroidism Anxiety and depression Asthma Atherosclerotic cardiovascular disease CAD (coronary artery disease) Diabetes mellitus Diabetes type 2, uncontrolled Diabetic nephropathy associated with type 2 diabetes mellitus Dyslipidemia Fibromyalgia GERD (gastroesophageal reflux disease) Hypertension IBS (irritable bowel syndrome) Left hand weakness 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 Migraines Obesity (BMI 30-39.9) Obesity due to excess calories Pernicious anemia Sleep apnea Vitamin D deficiency Functional capacity: wheelchair bound Patient : No Family History: Family History (Last Reviewed 06/09/24 @ 22:50 by Sandra Adam MD) Mother Diabetes Sister Stomach cancer Father Brother Colon cancer Brother Pancreas cancer Family history: reviewed and not pertinent Surgical History: Surgical History (Last Reviewed 06/11/24 @ 14:01 by Bety Vivas PT) H/O colonoscopy H/O: hysterectomy Hx of cataract surgery Social History: Social History (Last Reviewed 06/09/24 @ 22:50 by Sandra Adam MD) Living Situation History: Household Members: Spouse Housing: Apartment Are you a primary child care group leader to a significant other at home: No Do you presently have visiting nurse or other home services: Yes Alcohol History Details: 1. How often do you have a drink containing alcohol?: a. Never AUDIT-C Alcohol total score: 0 Currently Displaying Signs/Symptoms of Alcohol Withdrawal: No Tobacco History: Patient Tobacco Use Status: Former Tobacco user Tobacco use type: Cigarette Smoked in Last 30 Days: No Substance Use History: Use of substances other than those prescribed or required for medical reasons: No Currently Displaying Signs/Symptoms of Drug Intoxication Withdrawal: No Domestic Abuse History: Have you been hit, kicked, punched, or otherwise hurt by someone within the past year? If so, by whom?: No Do you feel safe in your current relationship?: Yes Is there a partner from a previous relationship who is making you feel unsafe now?: No Are you made to feel afraid or neglected: No Advance Directives: Advance Directives: No Advance Directives Information Provided: No Nutrition Assessment: Recently lost weight without trying: Unsure How much weight loss: Unsure Eating poorly because of decreased appetite: Yes Nutrition screen score: 5 Nutrition Risks: Difficulty swallowing Patient : No : No Poor oral hygiene: No Occupation Assessmet: service: No Current occupational status: unemployed Current occupation: she lives with her . Oncology Screenings - ECOG Performance Status ECOG Performance Status: 2 Home Medications and Allergies Current Medications: Current Medications Acetaminophen (Acetaminophen 325 Mg Tablet) 650 mg PO Q6H PRN PRN Reason: Pain, Mild (Pain Scale 1-3), fever or headache Aspirin (Aspirin Enteric Coated 81 Mg Tablet.) 81 mg PO DAILY [facility] Last Admin: 06/10/24 08:27 Dose: Not Given Atorvastatin Calcium (Atorvastatin Calcium 80 Mg Tablet) 80 mg PO DAILY [facility] Last Admin: 06/10/24 08:27 Dose: Not Given Atovaquone (Atovaquone 750 Mg/5 Ml Oral.Susp) 750 mg PO BID [facility] Last Admin: 06/10/24 04:33 Dose: 750 mg Calcium Carbonate (Calcium Carbonate 750 Mg Tab.Chew) 750 mg PO Q4H PRN PRN Reason: Heartburn Clonazepam (Clonazepam 1 Mg Tablet) 1 mg PO BID [facility] Last Admin: 06/10/24 08:27 Dose: Not Given Cyclobenzaprine HCl (Cyclobenzaprine Hcl 10 Mg Tablet) 10 mg PO BEDTIME PRN PRN Reason: Muscle Spasms Dicyclomine HCl (Dicyclomine Hcl 10 Mg Capsule) 20 mg PO TID [facility] Last Admin: 06/10/24 08:27 Dose: Not Given Duloxetine HCl (Duloxetine Hcl 20 Mg Capsule.) 40 mg PO BEDTIME [facility] Last Admin: 06/09/24 22:34 Dose: Not Given Ferrous Sulfate (Ferrous Sulfate 324 Mg Tablet.) 324 mg PO DAILY [facility] Last Admin: 06/10/24 08:28 Dose: Not Given Glucose (Glucose Gel 15 Gm Gel..Gram.) 15 gm PO Q15M PRN; Protocol PRN Reason: per Hypoglycemia Standing Ord. Dextrose (D10) 250 mls @ 750 mls/hr IV Q15M PRN; Protocol PRN Reason: per Hypoglycemia Standing Ord. Lactated Ringer's (Lr) 1,000 mls @ 125 mls/hr IVCONT .Q8H [facility] Last Admin: 06/10/24 08:27 Dose: Not Given Cefepime HCl 2 gm/ Sodium (Chloride) 50 mls @ 100 mls/hr IV Q12H [facility] Last Infusion: 06/10/24 05:08 Dose: Infused Vancomycin HCl 750 mg/ Sodium (Chloride) 265 mls @ 265 mls/hr IV Q12H [facility] Last Infusion: 06/10/24 10:10 Dose: Infused Insulin Glargine (Insulin Glargine,Hum.Rec.Anlog 100 Unit/Ml 10 Ml Vial) 60 unit SUBCUT BEDTIME [facility] Last Admin: 06/09/24 21:40 Dose: 60 unit Insulin Human Lispro (Insulin Lispro 100 Unit/Ml 3 Ml Vial) 0 unit SUBCUT QIDACHS [facility]; Protocol Last Admin: 06/10/24 12:15 Dose: 25 unit Levothyroxine Sodium (Levothyroxine Sodium 112 Mcg Tablet) 112 mcg PO DAILY@0600 [facility] Levothyroxine Sodium (Levothyroxine Sodium 25 Mcg Tablet) 25 mcg PO DAILY@0600 [facility] Loratadine (Loratadine 10 Mg Tablet) 10 mg PO DAILY [facility] Last Admin: 06/10/24 08:28 Dose: Not Given Magnesium Hydroxide (Milk Of Magnesia 30 Ml Oral.Susp) 30 ml PO DAILY PRN PRN Reason: Constipation Melatonin (Melatonin 3 Mg Tablet) 6 mg PO BEDTIME PRN PRN Reason: Insomnia Methylprednisolone Sodium Succinate (Methylprednisolone Sod Succ 125 Mg/2 Ml Vial) 60 mg IVPUSH BID [facility] Last Admin: 06/10/24 08:20 Dose: 60 mg Morphine Sulfate (Morphine Sulfate 4 Mg/Ml Cartridge) 4 mg IVPUSH Q4H PRN; Protocol PRN Reason: Pain, Severe (Pain Scale 7-10) Last Admin: 06/10/24 08:22 Dose: 4 mg Omeprazole (Omeprazole 20 Mg Capsule.Dr) 20 mg PO DAILY@0630 [facility] Ondansetron HCl (Ondansetron Hcl 4 Mg/2 Ml Vial) 4 mg IVPUSH Q8H PRN PRN Reason: Nausea and Vomiting Pharmacy Consult (Consult Rx Vancomycin Dosing) 1 each MISCELLANE DAILY PRN PRN Reason: Consult order Quetiapine Fumarate (Quetiapine Fumarate 300 Mg Tablet) 300 mg PO BEDTIME [facility] Last Admin: 06/09/24 22:34 Dose: Not Given Senna/Docusate Sodium (Sennosides/Docusate Sodium Tablet) 1 tab PO DAILY [facility] Last Admin: 06/10/24 08:27 Dose: Not Given Sodium Chloride (0.9 % Sodium Chloride Flush 3 Ml Syringe) 3 ml IVFLUSH QSHIFT [facility] Last Admin: 06/10/24 08:22 Dose: 3 ml Vitamin D (Cholecalciferol (Vitamin D3) 25 Mcg Tablet) 50 mcg PO DAILY [facility] Last Admin: 06/10/24 08:27 Dose: Not Given Zolpidem Tartrate (Zolpidem Tartrate 5 Mg Tablet) 10 mg PO BEDTIME [facility] Last Admin: 06/09/24 22:35 Dose: Not Given Home Medications ?Medication ?Instructions ?Recorded ?Confirmed ?Type cetirizine 10 mg tablet 10 mg PO DAILY 07/18/20 06/08/24 History clonazepam 1 mg tablet 1 mg PO BID 07/18/20 06/08/24 History cyanocobalamin (vitamin B-12) 1,000 mcg IM QMONTH 07/18/20 06/08/24 History 1,000 mcg/mL injection solution levothyroxine 137 mcg capsule 137 mcg PO DAILY@0600 07/18/20 06/08/24 History (Tirosint) lisinopril 2.5 mg tablet 2.5 mg PO DAILY 07/18/20 06/08/24 History omeprazole 20 mg capsule,delayed 20 mg PO DAILY 07/18/20 06/08/24 History release acetaminophen 500 mg tablet 1,000 mg PO QID PRN Pain 08/25/20 06/08/24 History (Tylenol Extra Strength) dicyclomine 10 mg capsule 20 mg PO TID 12/11/20 06/08/24 History cyclobenzaprine 10 mg tablet 10 mg PO BEDTIME PRN Muscle Spasms 12/26/20 06/08/24 History aspirin 81 mg tablet,delayed 81 mg PO DAILY 07/03/21 06/08/24 History release (Adult Low Dose Aspirin) cholecalciferol (vitamin D3) 50 50 mcg PO DAILY 07/03/21 06/08/24 History mcg (2,000 unit) capsule zolpidem 10 mg tablet 10 mg PO BEDTIME 07/03/21 06/08/24 History betamethasone, augmented 0.05 % 1 appl topical DAILY PRN Flares 06/08/24 06/08/24 History topical ointment clobetasol 0.05 % topical ointment 1 appl topical BID PRN Itchiness 06/08/24 06/08/24 History duloxetine 20 mg capsule,delayed 40 mg PO BEDTIME 06/08/24 06/08/24 History release glucagon 3 mg/actuation nasal 3 mg intranasal DIRECTED 06/08/24 06/08/24 History spray (Baqsimi) hydrochlorothiazide 12.5 mg tablet 12.5 mg PO DAILY 06/08/24 06/08/24 History insulin glargine U-300 conc 300 120 unit subcut DAILY 06/08/24 06/08/24 History unit/mL (3 mL) subcutaneous pen (Toujeo Max U-300 SoloStar) insulin lispro 100 unit/mL 1 sliding scale dose subcut 06/08/24 06/08/24 History subcutaneous pen USEASDIRECTD ketotifen fumarate 0.025 % (0.035 1 drp ophthalmic (eye) BID PRN 06/08/24 06/08/24 History %) eye drops (Eye Itch Relief) Itchiness quetiapine 300 mg tablet 300 mg PO BEDTIME 06/08/24 06/08/24 History sennosides 8.6 mg-docusate sodium 1 tab-cap PO DAILY 06/08/24 06/08/24 History 50 mg tablet (Senna Plus) tacrolimus 0.1 % topical ointment 1 appl topical BID PRN Flares 06/08/24 06/08/24 History tirzepatide 5 mg/0.5 mL 10 mg subcut QWEEK 06/08/24 06/08/24 History subcutaneous pen injector (Shun) Allergies Allergy/AdvReac Type Severity Reaction Status Date / Time ibuprofen [IBUPROFEN] Allergy Mild RASH Verified 06/07/24 19:14 Exam Vital signs: Vital Signs Temp 99.3 F 06/10/24 11:10 Pulse 98 06/10/24 11:10 Resp 20 06/10/24 11:10 BP 152/83 H 08/29/24 11:10 Pulse Ox 93 06/10/24 11:10 O2 Del Method Nasal Cannula 06/10/24 11:10 O2 Flow Rate 3 06/10/24 11:10 Intake & Output 06/09/24 06/10/24 06/10/24 18:59 06:59 18:59 Intake Total 1148.333 / 3508.333 2360 / 3508.333 265 / 265 Output Total 100 / 300 200 / 300 Balance 1048.333 / 3208.333 2160 / 3208.333 265 / 265 Urine Output (Average ml/kg/hr) 0.08 0.16 0.16 Intake: Intake, Oral Amount 115 / 1315 1200 / 1315 Intake, IV Amount 1033.333 / 2193.333 1160 / 2193.333 265 / 265 cefEPime HCl 2 gm In 0.9 % 50 / 100 50 / 100 Sodium Chloride 50 ml @ 100 mls /hr IV Q12H LANE Rx#:[id number] vancomycin HCL 500 mg In 0.9 % 110 / 110 Sodium Chloride 100 ml @ 110 mls/hr IV Q12H LANE Rx#: [id number] vancomycin HCL 750 mg In 0.9 % 265 / 265 Sodium Chloride 250 ml @ 265 mls/hr IV Q12H LANE Rx#: [id number] Lactated Ringers 1,000 ml @ 125 983.333 / 9991.558 1598 / 1983.333 mls/hr IVCONT .Q8H LANE Rx#: [id number] Output: Output, Urine Amount 100 / 300 200 / 300 Other: Meal Refused Yes Breakfast % Eaten 25% 25% Lunch % Eaten 0% Eating (Feeding) Ability Independent Number of Unmeasured Voids 1 Urine purewick Bathroom Urine Color Yellow Last Bowel Movement 06/07/24 Weight 103.9 kg BMI result Body Mass Index 46.3 - Constitutional Present: mild distress, obese - Routine HEENT Exam Head: Present: normal inspection Eye: Present: normal appearance ENT: Present: mucous membranes moist - Routine Neck Exam Present: full ROM - Routine Respiratory Exam Absent: accessory muscle use - Routine Cardiovascular Exam Cardiovascular: Present: S1, S2 - Routine Abdominal Exam Present: soft. Absent: tenderness - Routine Rectal Exam Patient deferred: digital exam - Routine Extremities Exam Present: tenderness - Routine Back/Spine/Pelvis Exam Back/Spine: Present: full ROM - Routine Skin Exam Present: intact. Absent: erythema, rash - Routine Neurological Exam Present: alert, oriented X3 - Routine Psychiatric Exam Present: normal affect Data - Labs CBC & Chem 7: 06/11/24 06:53 06/11/24 06:53 Labs: Laboratory Last Values WBC 17.9 X10*3/uL (4.8-10.8) H 06/10/24 07:55 RBC 4.71 X10*6/uL (4.20-5.50) 06/10/24 07:55 Hgb 12.1 g/dl (12.0-16.0) 06/10/24 07:55 Hct 37.4 % (37.0-47.0) 06/10/24 07:55 MCV 79.4 fL (80.0-98.0) L 06/10/24 07:55 MCH 25.7 pg (27.0-33.0) L 06/10/24 07:55 MCHC 32.4 g/dl (31.0-35.0) 06/10/24 07:55 RDW 15.9 % (11.0-16.0) 06/10/24 07:55 Plt Count 142 X10*3/uL (160-400) L D 06/10/24 07:55 MPV Not Reportable 06/10/24 07:55 Immature Gran % (Auto) 2.1 % (0.0-0.4) H 06/08/24 08:33 Neut % (Auto) 88.1 % (45-73) H 06/08/24 08:33 Lymph % (Auto) 1.9 % (20-40) L 06/08/24 08:33 Weston % (Auto) 6.6 % (2-11) 06/08/24 08:33 Eos % (Auto) 0.9 % (0-4) 06/08/24 08:33 Baso % (Auto) 0.4 % (0-2) 06/08/24 08:33 Lymph # (Auto) 0.4 X10*3/uL (1.2-4.9) L 06/08/24 08:33 Weston # (Auto) 1.4 X10*3/uL (0.1-1.2) H 06/08/24 08:33 Eos # (Auto) 0.2 X10*3/uL (0.0-0.4) 06/08/24 08:33 Baso # (Auto) 0.1 X10*3/uL (0.0-0.2) 06/08/24 08:33 Abs Immat Gran (auto) 0.43 X10*3/uL (0.00-0.03) H 06/08/24 08:33 Absolute Neuts (auto) 18.1 x10*3/uL (2.0-8.3) H 06/08/24 08:33 Absolute Nucleated RBC 0.040 X10*3/uL (0.0-0.012) H 06/10/24 07:55 Nucleated RBC % (auto) 0.2 /100WBC (0.0-0.2) 06/10/24 07:55 ESR 23 MM/HR (0-20) H 06/08/24 08:33 PT 12.1 SEC (11.1-13.3) 06/07/24 19:51 INR 1.0 (0.9-1.1) 06/07/24 19:51 Sodium 131 mmol/L (135-145) L 06/10/24 07:55 Potassium 5.8 mmol/L (3.3-5.1) H 06/10/24 07:55 Chloride 96 mmol/L (96-108) 06/10/24 07:55 Carbon Dioxide 27 mmol/L (22-29) 06/10/24 07:55 Anion Gap 14 (12-20) 06/10/24 07:55 BUN 35 mg/dL (9-16) H 06/10/24 07:55 Creatinine 1.30 mg/dL (0.5-1.4) 06/10/24 07:55 Estim Creat Clear Calc 49.0 06/10/24 07:55 Estimated GFR 42 06/10/24 07:55 POC Glucose 381 mg/dL (60-115) H* 06/10/24 10:49 Random Glucose 355 mg/dL (60-115) H* 06/10/24 07:55 Lactic Acid 3.7 mmol/L (0.5-2.0) H* 06/08/24 08:46 Lactic Acid F/U @ 2Hr 4.9 mmol/L (0.5-2.0) H* 06/08/24 11:02 Lactic Acid F/U @ 4Hr 6.6 mmol/L (0.5-2.0) H* 06/08/24 13:18 Calcium 9.2 mg/dL (8.4-10.2) 06/10/24 07:55 Magnesium 2.3 mg/dL (1.6-2.6) 06/10/24 07:55 Total Bilirubin 0.7 mg/dL (0.0-1.0) 06/10/24 07:55 AST 17 U/L (5-31) 06/10/24 07:55 ALT 18 U/L (0-31) 06/10/24 07:55 Alkaline Phosphatase 56 U/L (39-117) 06/10/24 07:55 Lactate Dehydrogenase 239 U/L (122-220) H 06/09/24 06:36 Total Creatine Kinase 129 U/L (26-140) 06/07/24 20:34 C-Reactive Protein 51.28 mg/dL (< or = 0.50) H 06/10/24 07:55 Total Protein 6.7 g/dL (6.5-8.0) 06/10/24 07:55 Albumin 3.0 g/dL (3.5-5.0) L 06/10/24 07:55 Lipase 13 U/L (8-78) 06/07/24 20:34 Procalcitonin 11.21 ng/mL 06/09/24 06:36 Urine Color Yellow 06/07/24 23:14 Urine Appearance Turbid 06/07/24 23:14 Urine pH 8.5 (5.0-9.0) 06/07/24 23:14 Ur Specific Backus 1.020 (1.005-1.025) 06/07/24 23:14 Urine Protein 30 (1+) mg/dL (Neg-Trace) H 06/07/24 23:14 Urine Glucose (UA) Negative mg/dL (Negative) 06/07/24 23:14 Urine Ketones Negative mg/dL (Negative) 06/07/24 23:14 Urine Blood Negative (Negative) 06/07/24 23:14 Urine Nitrite Negative (Negative) 06/07/24 23:14 Ur Leukocyte Esterase Trace (Negative) H 06/07/24 23:14 Urine RBC 3-5 /HPF (0-2) H 06/07/24 23:14 Urine WBC 6-10 /HPF (0-5) H 06/07/24 23:14 Ur Squamous Epith Cells 0-2 /HPF (0-2) 06/07/24 23:14 Urine Bacteria 2+ (None Seen) 06/07/24 23:14 Hyaline Casts 0-2 /LPF (0-2) 06/07/24 23:14 Random Vancomycin 8.1 mcg/mL (15-20) L 06/10/24 07:55 Respiratory Panel Bryant See Note 06/09/24 12:00 Adenovirus (Rapid PCR) Not Detected (Not Detect.) 06/09/24 12:00 B.pert (TEM-PCR) Not Detected (Not Detect.) 06/09/24 12:00 B.parapertussis DNA PCR Not Detected (Not Detect.) 06/09/24 12:00 C. pneumoniae DNA (PCR) Not Detected (Not Detect.) 06/09/24 12:00 Coronavirus OC43 (PCR) Not Detected (Not Detect.) 06/09/24 12:00 Coronavirus HKU1 (PCR) Not Detected (Not Detect.) 06/09/24 12:00 Coronavirus 229E (PCR) Not Detected (Not Detect.) 06/09/24 12:00 Coronavirus NL63 (PCR) Not Detected (Not Detect.) 06/09/24 12:00 HIV 1&2 Ab/P24 Ag 4thGn Nonreactive (Nonreactive) 06/10/24 07:56 Human Metapneumovir PCR Not Detected (Not Detect.) 06/09/24 12:00 Influenza A (RT-PCR) Not Detected (Not Detect.) 06/09/24 12:00 Influenza Type A (PCR) NEGATIVE (Negative) 06/07/24 19:51 Influenza B (RT-PCR) Not Detected (Not Detect.) 06/09/24 12:00 Influenza Type B (PCR) NEGATIVE (Negative) 06/07/24 19:51 M. pneumoniae (PCR) Not Detected (Not Detect.) 06/09/24 12:00 Parainfluenza 1 (PCR) Not Detected (Not Detect.) 06/09/24 12:00 Parainfluenza 2 (PCR) Not Detected (Not Detect.) 06/09/24 12:00 Parainfluenza 3 (PCR) Not Detected (Not Detect.) 06/09/24 12:00 Parainfluenza 4 (PCR) Not Detected (Not Detect.) 06/09/24 12:00 RSV (PCR) Not Detected (Not Detect.) 06/09/24 12:00 RSV RNA Qual (PCR) NEGATIVE (Negative) 06/07/24 19:51 Entero/Rhino (PCR) Not Detected (Not Detect.) 06/09/24 12:00 SARS-CoV-2 RNA (RT-PCR) Not Detected (Not Detect.) 06/09/24 12:00 S. pyogenes GrpA IDA Negative (Negative) 06/08/24 13:24 - Imaging Radiologist's impression: ITS Impressions Venous Duplex 06/07/24 23:16 IMPRESSION: No evidence of deep venous thrombosis involving the left lower extremity. Electronically signed by: Mark Burroughs MD 06/08/2024 12:10 AM EDT RP Soft Tissue Neck CT 06/08/24 15:00 IMPRESSION: Imaging findings consistent with calcific tendinitis of the longus colli musculature. Electronically signed by: Daniel Ramsey MD 06/08/2024 04:36 PM EDT RP Chest X-Ray 06/09/24 10:00 IMPRESSION: 1. Enlarged cardiomediastinal silhouette, significantly increased since 2019. Recommend correlation with already ordered CT chest that would be dictated separately. 2. Bibasilar consolidative airspace opacities and small bilateral pleural effusions. These findings are nonspecific and could be related with atelectasis, aspiration or pneumonia. Electronically signed by: Chasity Vasquez MD 06/09/2024 05:35 PM EDT RP Abdomen/Pelvis CT 06/09/24 16:02 IMPRESSION: Trace bilateral pleural fluid. Bilateral dependent airspace disease, worse at the bases, consistent with consolidative infiltrates and/or atelectasis. Question layering debris within the urinary bladder versus artifact. No evidence of thickening of the wall urinary bladder nor of adjacent inflammatory changes. Recommend clinical correlation. Mild right axillary adenopathy. Recommend clinical correlation and follow-up as clinically indicated. Additional findings, as above. Electronically signed by: Alli Brewer MD 06/09/2024 06:48 PM EDT RP Chest CT 06/09/24 16:02 IMPRESSION: Trace bilateral pleural fluid. Bilateral dependent airspace disease, worse at the bases, consistent with consolidative infiltrates and/or atelectasis. Question layering debris within the urinary bladder versus artifact. No evidence of thickening of the wall urinary bladder nor of adjacent inflammatory changes. Recommend clinical correlation. Mild right axillary adenopathy. Recommend clinical correlation and follow-up as clinically indicated. Additional findings, as above. Electronically signed by: Alli Brewer MD 06/09/2024 06:48 PM EDT RP Head CT 06/09/24 16:02 IMPRESSION: No acute intracranial pathology. Moderate diffuse brain parenchymal volume loss and mild to moderate chronic white matter microangiopathy. Electronically signed by: Daniel Ramsey MD 06/09/2024 05:21 PM EDT RP Assessment and Plan Patient Active problem list reviewed?: Yes (1) Chronic ITP (idiopathic thrombocytopenia) Status: Acute Assessment and plan: 58-year-old lady, with history of ITP with recent relapse. She had initially presented in 2019. Bone marrow results from 06/13/20: - Mildly hypercellular marrow with maturing trilineage hematopoiesis. - Megakaryocyte hyperplasia. - Reduced iron stores. The patient's pancytopenia is noted. No evidence of dysplasia or a marrow infiltrative process is seen. The megakaryocyte hyperplasia may be compensatory due to peripheral destruction of platelets. Flow cytometry and cytogenetics: LEFT-SHIFTED MYELOPOIESIS, 1% MYELOBLASTS Myeloid forms exhibit immunophenotypic evidence of left-shifted maturation with no detectable aberrant marker expression. Blasts are not increased. Monocytes are immunophenotypically mature, comprise 4% of WBCs, and express partial aberrant CD56. Lymphocytes include normal precursor B cells/hematogones, polyclonal mature B cells, NK cells and immunophenotypically normal CD4+ and CD8+ T cells in normal proportions. No evidence of a clonal lymphoid expansion. Correlate with morphologic findings and cytogenetic studies for further evaluation of the significance of the observed left-shifted myelopoiesis. Bone marrow revealed ITP. She was treated with Rituximab x 4. She completed her 4th dose on 07/22/20. She tolerated it very well. She then relapsed, about a month ago. Platelet count went down to 44,000. She was started on rituximab. 1st cycle was on 05/28. She received 2nd dose of rituximab on 06/04/2024. On 06/07/2024 she developed fever, body swelling and diffuse arthralgias. She reports difficulty swallowing and sputum production although she does not have cough. She reported nausea and poor appetite. She had tenderness, over her lower extremities and feet. CBC from 06/07: WBC 12.9, HGB 12.5, HCT 38.3, PLT 62. CT chest, abdomen pelvis from 06/08 revealed: Trace bilateral pleural fluid. Bilateral dependent airspace disease, worse at the bases, consistent with consolidative infiltrates and/or atelectasis. Question layering debris within the urinary bladder versus artifact. No evidence of thickening of the wall urinary bladder nor of adjacent inflammatory changes. Recommend clinical correlation. Mild right axillary adenopathy. Recommend clinical correlation and follow-up as clinically indicated. CT scan of the head from 06/08: No acute intracranial pathology. Moderate diffuse brain parenchymal volume loss and mild to moderate chronic white matter microangiopathy. She is being worked up for an infectious problem. D/D includes serum sickness related to Rituximab. Being covered with broad-spectrum antibiotics pending culture results. She is on cefepime and vancomycin. Also being covered for atypical organism with doxycycline and PJP with Mepron. Culture positive for group B strep. CBC from today: WBC 17.9, HGB 12, PLT 142. PLAN: To complete ID workup. Will follow labs. Will hold off further Rituximab therapy, now that platelet count has normalized. Thanks, - Time Spent With Patient Time Spent with Patient (in minutes): 25
--- NOTE | 2024-06-10 12:49 | HO.PM.IMPN ---
Subjective Subjective Date of Service: 06/10/24 Interval History: This history was taken in [place] from the patient. afebrile now, feels much better though still c/o joint pains headache resolved throat still sore Review of Systems Review of Systems: Yes all other systems are reviewed and are negative Physical Exam Vital Signs: Vital Signs: Last Vital Signs Temp 99.3 F 06/10/24 11:10 Pulse 98 06/10/24 11:10 Resp 20 06/10/24 11:10 BP 152/83 H 06/10/24 11:10 Pulse Ox 93 06/10/24 11:10 O2 Del Method Nasal Cannula 06/10/24 11:10 O2 Flow Rate 3 06/10/24 11:10 BMI result Body Mass Index 46.3 Gen: NAD HEENT: sclera anicteric, moist mucus membranes, no oral lesions Neck: bilateral tenderness Lungs: diminished Heart: regular, no murmurs Abd: soft, non-tender, non-distended, obese Ext: 2+ BLE + BUE edema, pain with ROM of ankles + knees + wrists Skin: warm/well-perfused Neuro: alert and oriented x3, no focal findings Psych: appropriate affect Objective Data Active Medications Acetaminophen (Acetaminophen 325 Mg Tablet) 650 mg PO Q6H PRN PRN Reason: Pain, Mild (Pain Scale 1-3), fever or headache Aspirin (Aspirin Enteric Coated 81 Mg Tablet.Dr) 81 mg PO DAILY [facility] Last Admin: 06/10/24 08:27 Dose: Not Given Documented By: SO Non-Admin Reason: Patient Refused Atorvastatin Calcium (Atorvastatin Calcium 80 Mg Tablet) 80 mg PO DAILY [facility] Last Admin: 06/10/24 08:27 Dose: Not Given Documented By: SO Non-Admin Reason: Patient Refused Atovaquone (Atovaquone 750 Mg/5 Ml Oral.Susp) 750 mg PO BID [facility] Last Admin: 06/10/24 04:33 Dose: 750 mg Documented By: JULIO CESAR Calcium Carbonate (Calcium Carbonate 750 Mg Tab.Chew) 750 mg PO Q4H PRN PRN Reason: Heartburn Clonazepam (Clonazepam 1 Mg Tablet) 1 mg PO BID [facility] Last Admin: 06/10/24 08:27 Dose: Not Given Documented By: SO Non-Admin Reason: Patient Refused Cyclobenzaprine HCl (Cyclobenzaprine Hcl 10 Mg Tablet) 10 mg PO BEDTIME PRN PRN Reason: Muscle Spasms Dicyclomine HCl (Dicyclomine Hcl 10 Mg Capsule) 20 mg PO TID [facility] Last Admin: 06/10/24 08:27 Dose: Not Given Documented By: SO Non-Admin Reason: Patient Refused Duloxetine HCl (Duloxetine Hcl 20 Mg Capsule.) 40 mg PO BEDTIME [facility] Last Admin: 06/09/24 22:34 Dose: Not Given Documented By: JULIO CESAR Non-Admin Reason: Patient Refused Ferrous Sulfate (Ferrous Sulfate 324 Mg Tablet.) 324 mg PO DAILY [facility] Last Admin: 06/10/24 08:28 Dose: Not Given Documented By: SO Non-Admin Reason: Patient Refused Glucose (Glucose Gel 15 Gm Gel..Gram.) 15 gm PO Q15M PRN; Protocol PRN Reason: per Hypoglycemia Standing Ord. Dextrose (D10) 250 mls @ 750 mls/hr IV Q15M PRN; Protocol PRN Reason: per Hypoglycemia Standing Ord. Lactated Ringer's (Lr) 1,000 mls @ 125 mls/hr IVCONT .Q8H [facility] Last Admin: 06/10/24 08:27 Dose: Not Given Documented By: SO Non-Admin Reason: IV Running Cefepime HCl 2 gm/ Sodium (Chloride) 50 mls @ 100 mls/hr IV Q12H [facility] Last Infusion: 06/10/24 05:08 Dose: Infused Documented By: JULIO CESAR Vancomycin HCl 750 mg/ Sodium (Chloride) 265 mls @ 265 mls/hr IV Q12H [facility] Last Infusion: 06/10/24 10:10 Dose: Infused Documented By: SO Insulin Glargine (Insulin Glargine,Hum.Rec.Anlog 100 Unit/Ml 10 Ml Vial) 60 unit SUBCUT BEDTIME [facility] Last Admin: 06/09/24 21:40 Dose: 60 unit Documented By: JULIO CESAR Insulin Human Lispro (Insulin Lispro 100 Unit/Ml 3 Ml Vial) 0 unit SUBCUT QIDACHS [facility]; Protocol Last Admin: 06/10/24 12:15 Dose: 25 unit Documented By: SO Levothyroxine Sodium (Levothyroxine Sodium 112 Mcg Tablet) 112 mcg PO DAILY@0600 [facility] Levothyroxine Sodium (Levothyroxine Sodium 25 Mcg Tablet) 25 mcg PO DAILY@0600 [facility] Loratadine (Loratadine 10 Mg Tablet) 10 mg PO DAILY [facility] Last Admin: 06/10/24 08:28 Dose: Not Given Documented By: SO Non-Admin Reason: Patient Refused Magnesium Hydroxide (Milk Of Magnesia 30 Ml Oral.Susp) 30 ml PO DAILY PRN PRN Reason: Constipation Melatonin (Melatonin 3 Mg Tablet) 6 mg PO BEDTIME PRN PRN Reason: Insomnia Methylprednisolone Sodium Succinate (Methylprednisolone Sod Succ 125 Mg/2 Ml Vial) 60 mg IVPUSH BID [facility] Last Admin: 06/10/24 08:20 Dose: 60 mg Documented By: SO Morphine Sulfate (Morphine Sulfate 4 Mg/Ml Cartridge) 4 mg IVPUSH Q4H PRN; Protocol PRN Reason: Pain, Severe (Pain Scale 7-10) Last Admin: 06/10/24 08:22 Dose: 4 mg Documented By: SO Omeprazole (Omeprazole 20 Mg Capsule.Dr) 20 mg PO DAILY@0630 [facility] Ondansetron HCl (Ondansetron Hcl 4 Mg/2 Ml Vial) 4 mg IVPUSH Q8H PRN PRN Reason: Nausea and Vomiting Pharmacy Consult (Consult Rx Vancomycin Dosing) 1 each MISCELLANE DAILY PRN PRN Reason: Consult order Quetiapine Fumarate (Quetiapine Fumarate 300 Mg Tablet) 300 mg PO BEDTIME [facility] Last Admin: 06/09/24 22:34 Dose: Not Given Documented By: JULIO CESAR Non-Admin Reason: Patient Refused Senna/Docusate Sodium (Sennosides/Docusate Sodium Tablet) 1 tab PO DAILY [facility] Last Admin: 06/10/24 08:27 Dose: Not Given Documented By: SO Non-Admin Reason: Patient Refused Sodium Chloride (0.9 % Sodium Chloride Flush 3 Ml Syringe) 3 ml IVFLUSH QSHIFT [facility] Last Admin: 06/10/24 08:22 Dose: 3 ml Documented By: SO Vitamin D (Cholecalciferol (Vitamin D3) 25 Mcg Tablet) 50 mcg PO DAILY [facility] Last Admin: 06/10/24 08:27 Dose: Not Given Documented By: SO Non-Admin Reason: Patient Refused Zolpidem Tartrate (Zolpidem Tartrate 5 Mg Tablet) 10 mg PO BEDTIME [facility] Last Admin: 06/09/24 22:35 Dose: Not Given Documented By: JULIO CESAR Non-Admin Reason: Patient Refused Labs 06/10/24 07:55 06/10/24 07:55 Labs: Laboratory Results - last 24 hr 06/09/24 06/09/24 06/09/24 06:36 12:00 17:01 MCV MCH MCHC RDW Plt Count MPV Absolute Nucleated RBC Nucleated RBC % (auto) Anion Gap Estim Creat Clear Calc Estimated GFR POC Glucose 309 H Random Glucose Calcium Magnesium Total Bilirubin AST ALT Alkaline Phosphatase Lactate Dehydrogenase 239 H C-Reactive Protein Total Protein Albumin Random Vancomycin Respiratory Panel Bryant See Note Adenovirus (Rapid PCR) Not Detected B.pert (TEM-PCR) Not Detected B.parapertussis DNA PCR Not Detected C. pneumoniae DNA (PCR) Not Detected Coronavirus OC43 (PCR) Not Detected Coronavirus HKU1 (PCR) Not Detected Coronavirus 229E (PCR) Not Detected Coronavirus NL63 (PCR) Not Detected HIV 1&2 Ab/P24 Ag 4thGn Human Metapneumovir PCR Not Detected Influenza A (RT-PCR) Not Detected Influenza B (RT-PCR) Not Detected M. pneumoniae (PCR) Not Detected Parainfluenza 1 (PCR) Not Detected Parainfluenza 2 (PCR) Not Detected Parainfluenza 3 (PCR) Not Detected Parainfluenza 4 (PCR) Not Detected RSV (PCR) Not Detected Entero/Rhino (PCR) Not Detected SARS-CoV-2 RNA (RT-PCR) Not Detected 06/09/24 06/10/24 06/10/24 20:23 06:46 07:55 MCV 79.4 L MCH 25.7 L MCHC 32.4 RDW 15.9 Plt Count 142 L D MPV Not Reportable Absolute Nucleated RBC 0.040 H Nucleated RBC % (auto) 0.2 Anion Gap 14 Estim Creat Clear Calc 49.0 Estimated GFR 42 POC Glucose 313 H 315 H Random Glucose 355 H* Calcium 9.2 Magnesium 2.3 Total Bilirubin 0.7 AST 17 ALT 18 Alkaline Phosphatase 56 Lactate Dehydrogenase C-Reactive Protein 51.28 H Total Protein 6.7 Albumin 3.0 L Random Vancomycin 8.1 L Respiratory Panel [place] Adenovirus (Rapid PCR) B.pert (TEM-PCR) B.parapertussis DNA PCR C. pneumoniae DNA (PCR) Coronavirus OC43 (PCR) Coronavirus HKU1 (PCR) Coronavirus 229E (PCR) Coronavirus NL63 (PCR) HIV 1&2 Ab/P24 Ag 4thGn Human Metapneumovir PCR Influenza A (RT-PCR) Influenza B (RT-PCR) M. pneumoniae (PCR) Parainfluenza 1 (PCR) Parainfluenza 2 (PCR) Parainfluenza 3 (PCR) Parainfluenza 4 (PCR) RSV (PCR) Entero/Rhino (PCR) SARS-CoV-2 RNA (RT-PCR) 06/10/24 06/10/24 07:56 10:49 MCV MCH MCHC RDW Plt Count MPV Absolute Nucleated RBC Nucleated RBC % (auto) Anion Gap Estim Creat Clear Calc Estimated GFR POC Glucose 381 H* Random Glucose Calcium Magnesium Total Bilirubin AST ALT Alkaline Phosphatase Lactate Dehydrogenase C-Reactive Protein Total Protein Albumin Random Vancomycin Respiratory Panel [place] Adenovirus (Rapid PCR) B.pert (TEM-PCR) B.parapertussis DNA PCR C. pneumoniae DNA (PCR) Coronavirus OC43 (PCR) Coronavirus HKU1 (PCR) Coronavirus 229E (PCR) Coronavirus NL63 (PCR) HIV 1&2 Ab/P24 Ag 4thGn Nonreactive Human Metapneumovir PCR Influenza A (RT-PCR) Influenza B (RT-PCR) M. pneumoniae (PCR) Parainfluenza 1 (PCR) Parainfluenza 2 (PCR) Parainfluenza 3 (PCR) Parainfluenza 4 (PCR) RSV (PCR) Entero/Rhino (PCR) SARS-CoV-2 RNA (RT-PCR) Impressions Chest X-Ray 06/09/24 10:00 IMPRESSION: 1. Enlarged cardiomediastinal silhouette, significantly increased since 2018. Recommend correlation with already ordered CT chest that would be dictated separately. 2. Bibasilar consolidative airspace opacities and small bilateral pleural effusions. These findings are nonspecific and could be related with atelectasis, aspiration or pneumonia. Electronically signed by: Chasity Vasquez MD 06/09/2024 05:35 PM EDT Abdomen/Pelvis CT 06/09/24 16:02 IMPRESSION: Trace bilateral pleural fluid. Bilateral dependent airspace disease, worse at the bases, consistent with consolidative infiltrates and/or atelectasis. Question layering debris within the urinary bladder versus artifact. No evidence of thickening of the wall urinary bladder nor of adjacent inflammatory changes. Recommend clinical correlation. Mild right axillary adenopathy. Recommend clinical correlation and follow-up as clinically indicated. Additional findings, as above. Electronically signed by: Alli Brewer MD 06/09/2024 06:48 PM EDT RP Chest CT 06/09/24 16:02 IMPRESSION: Trace bilateral pleural fluid. Bilateral dependent airspace disease, worse at the bases, consistent with consolidative infiltrates and/or atelectasis. Question layering debris within the urinary bladder versus artifact. No evidence of thickening of the wall urinary bladder nor of adjacent inflammatory changes. Recommend clinical correlation. Mild right axillary adenopathy. Recommend clinical correlation and follow-up as clinically indicated. Additional findings, as above. Electronically signed by: Alli Brewer MD 06/09/2024 06:48 PM EDT RP Head CT 06/09/24 16:02 IMPRESSION: No acute intracranial pathology. Moderate diffuse brain parenchymal volume loss and mild to moderate chronic white matter microangiopathy. Electronically signed by: Daniel Ramsey MD 06/09/2024 05:21 PM EDT RP Microbiology Microbiology Results: Microbiology 06/08/24 08:52 Blood Culture - Preliminary Blood - Venous No growth after 48 hours. 06/08/24 08:46 Blood Culture - Preliminary Blood - Venous No growth after 48 hours. 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 ID consulted; continue vancomycin + cefepime started 06/08- and added doxycycline 06/09- to cover tickborne illness and added atovaquone 06/09- to cover PJP. does have GBS in urine though I do not think she is septic from this; regardless, it is covered by her current antibiotic regimen - follow blood cultures. PCT + CRP elevated; trend, but once more, I think these are due to SSLR - will pursue LP for CSF studies including COMFORT virus suspected serum sickness-like reaction to rituximab - Heme-Onc consulted, continue methylprednisolone IV 60 mg bid; follow inflammatory markers as above dysphagia/odynophagia - strep screen negative, CT neck suggests only calcific tendinitis of the longus colli musculature. and mild reactive retropharyngeal effusion. may require upper GI series if fails to improve acute lactic acidosis - suspected due to SSLR but was given 30 cc/kg IV fluids per IBW DAY - likely prerenal from SSLR; held lisinopril; giving LR; improving; recheck BMP in AM hyperK - continue to hold lisinopril; give SZC 10g; recheck BMP in AM DM2 - basal-bolus insulin nonobstructive CAD - continue ASA, atorvastatin IBS - dicyclomine mood disorder - clonazepam, quetiapine, zolpidem, duloxetine hypothyroidism - continue LT4 morbid obesity - diet/exercise counseling VTE ppx - SCDs; no enoxaparin pending LP dispo - TBD In my clinical judgment, the patient requires continued inpatient hospitalization for the following reasons: SSLR requiring steroids, IV ABX Total time managing care of this patient today: 50 minutes. Quality Stroke Does the patient have a stroke diagnosis?: No VTE Prior VTE?: No VTE Risk Level:: Medical - moderate - high VTE Device Contraindication: N/A - Device Ordered VTE Drug Contraindication: Treatment Not Indicated
[2024-06-10] MEDS: Sodium Zirconium Cyclosilicate 10 GM POWD.PACK PO (13:00)
--- NOTE | 2024-06-10 14:40 | PM.PROC ---
Brief Operative Note Date of procedure: 06/10/24 Pre-op diagnosis: Fever, headache, immunocompromised Post-op diagnosis: same Procedure: FL lumbar puncture L2-L3, Opening 36 cm H20. 10 cc clear csf removed. No immediate complications. Anesthesia: local
[2024-06-10 15:28] LABS: CSF Appearance Clear, Colorless; CSF Tube # 2
[2024-06-10 15:38] LABS: Glucose CSF 201 mg/dL; Total Protein CSF 81.4 mg/dL (15-45)
[2024-06-10 15:55] LABS: Glucose, Whole Blood 322 mg/dL (60-115)
[2024-06-10] MEDS: LORazepam 2 MG/ML VIAL 0.5 MG IVPUSH (15:55)
[2024-06-10 16:48] LABS: Cryptococcus neoformans/gattii Not Detected (Not Detect.); Enterovirus Not Detected (Not Detect.); Escherichia coli K1 Not Detected (Not Detect.); Haemophilus influenzae Not Detected (Not Detect.); Herpes simplex virus 1 Not Detected (Not Detect.); Herpes simplex virus 2 Not Detected (Not Detect.); Human herpesvirus 6 Not Detected (Not Detect.); Human parechovirus Not Detected (Not Detect.); Listeria monocytogenes Not Detected (Not Detect.); Neisseria meningitidis Not Detected (Not Detect.); Streptococcus agalactiae Not Detected (Not Detect.); Streptococcus pneumoniae Not Detected (Not Detect.); Varicella zoster virus Not Detected (Not Detect.)
[2024-06-10 16:51] LABS: Appearance CSF CLEAR; CSF Tube # 1; CSF Volume 2.5 ML; Color CSF COLORLESS
[2024-06-10 17:01] LABS: CSF Monos 19 %; Lymphocytes CSF 81 %; Red Blood Cell CSF 0 MM*3; White Blood Cell CSF 13 MM*3
[2024-06-10 17:02] LABS: Appearance CSF CLEAR; CSF Tube # 4; CSF Volume 2.8 ML; Color CSF COLORLESS
[2024-06-10 17:03] LABS: CSF Monos 22 %; Lymphocytes CSF 78 %; Red Blood Cell CSF 0 MM*3; White Blood Cell CSF 20 MM*3
[2024-06-10 21:41] LABS: Glucose, Whole Blood 287 mg/dL (60-115)
[2024-06-10] MEDS: Insulin Glargine,Hum.rec.anlog 100 UNIT/ML 10 ML VIAL 60 UNIT SUBCUT (22:53)
[2024-06-11] VITALS (8 sets, daily range): BP systolic 121–182; BP diastolic 57–81; PULSE 66–88; RESP 18–20; TEMP 36–36.8; O2SAT 94–98
[2024-06-11] MEDS: cefEPime HCl 2 GM in 0.9 % Sodium Chloride 50 ML IV (05:41)
[2024-06-11 07:30] LABS: Glucose, Whole Blood 303 mg/dL (60-115)
[2024-06-11 07:30] LABS: Hematocrit 37.7 % (37.0-47.0); Hemoglobin 12.1 g/dl (12.0-16.0); Mean Corpuscular HGB Conc 32.1 g/dl (31.0-35.0); Mean Corpuscular Hemoglobin 25.3 pg (27.0-33.0); Mean Corpuscular Volume 78.9 fL (80.0-98.0); NRBC Pct Auto 0.1 /100WBC (0.0-0.2); PLT CLUMP 1; Red Blood Count 4.78 X10*6/uL (4.20-5.50); Red Cell Distribution Width 15.6 % (11.0-16.0)
[2024-06-11 07:51] LABS: Alanine Aminotransferase 50 U/L (0-31); Alkaline Phosphatase 117 U/L (39-117); Anion Gap 11 (12-20); Aspartate Amino Transferase 64 U/L (5-31); Bilirubin Total 0.6 mg/dL (0.0-1.0); Blood Urea Nitrogen 34 mg/dL (9-16); Calcium 8.9 mg/dL (8.4-10.2); Carbon Dioxide 29 mmol/L (22-29); Chloride 99 mmol/L (96-108); Creatinine Clr Calc Pharmacy 57.9; Estimated Glomerular Filt Rate 51; Glucose Random 332 mg/dL (60-115); Magnesium 2.4 mg/dL (1.6-2.6); Sodium 134 mmol/L (135-145); Total Protein 6.8 g/dL (6.5-8.0)
[2024-06-11] MEDS: Insulin Lispro 100 UNIT/ML 3 ML VIAL SUBCUT ×4 (07:51→21:13)
[2024-06-11 07:57] LABS: Procalcitonin 4.39 ng/mL
[2024-06-11] MEDS: methylPREDNISolone Sod Succ 125 MG/2 ML VIAL 60 MG IVPUSH (07:57)
[2024-06-11 07:58] LABS: Platelet Count 171 X10*3/uL (160-400); White Blood Count 18.4 X10*3/uL (4.8-10.8)
[2024-06-11] MEDS: vancomycin HCL 750 MG in 0.9 % Sodium Chloride 250 ML 265 MG IV (07:58)
[2024-06-11 07:59] LABS: Mean Platelet Volume 12.6 fL (9.4-12.3)
[2024-06-11] MEDS: 0.9 % Sodium Chloride Flush 3 ML SYRINGE IVFLUSH (08:00)
[2024-06-11 11:26] LABS: Glucose, Whole Blood 291 mg/dL (60-115)
[2024-06-11] MEDS: Acetaminophen 1,000 MG/100 ML PIGGYBACK 400 MG IV (12:34)
--- NOTE | 2024-06-11 13:06 | P.PNIM_ITS ---
Subjective Subjective Date of Service: 06/11/24 Interval History: continues to remain afebrile and improve; even joint pain has improved no headache or neck stiffness dysphagia/odynophagia still present though improved Review of Systems Review of Systems: Yes all other systems are reviewed and are negative Physical Exam 2 Vital Signs: Vital Signs: Last Vital Signs Temp 96.9 F 06/11/24 11:02 Pulse 87 06/11/24 11:02 Resp 20 06/11/24 11:02 BP 139/65 06/11/24 11:02 Pulse Ox 96 06/11/24 11:02 O2 Del Method Nasal Cannula 06/11/24 11:02 O2 Flow Rate 3 06/11/24 11:02 BMI result Body Mass Index 46.3 Gen: NAD HEENT: sclera anicteric, moist mucus membranes, no oral lesions Neck: supple Lungs: clear bilaterally Heart: regular, no murmurs Abd: soft, non-tender, non-distended, obese Ext: 2+ BLE + BUE edema, pain with ROM of ankles + knees + wrists Skin: warm/well-perfused Neuro: alert and oriented x3, no focal findings Psych: appropriate affect Objective Data Active Medications Acetaminophen (Acetaminophen 325 Mg Tablet) 650 mg PO Q6H PRN PRN Reason: Pain, Mild (Pain Scale 1-3), fever or headache Aspirin (Aspirin Enteric Coated 81 Mg Tablet.Dr) 81 mg PO DAILY [facility] Last Admin: 06/11/24 08:12 Dose: Not Given Documented By: JOHNY Non-Admin Reason: Patient Refused Atorvastatin Calcium (Atorvastatin Calcium 80 Mg Tablet) 80 mg PO DAILY [facility] Last Admin: 06/11/24 08:12 Dose: Not Given Documented By: JOHNY Non-Admin Reason: Patient Refused Calcium Carbonate (Calcium Carbonate 750 Mg Tab.Chew) 750 mg PO Q4H PRN PRN Reason: Heartburn Clonazepam (Clonazepam 1 Mg Tablet) 1 mg PO BID [facility] Last Admin: 06/11/24 08:12 Dose: Not Given Documented By: JOHNY Non-Admin Reason: Patient Refused Cyclobenzaprine HCl (Cyclobenzaprine Hcl 10 Mg Tablet) 10 mg PO BEDTIME PRN PRN Reason: Muscle Spasms Dicyclomine HCl (Dicyclomine Hcl 10 Mg Capsule) 20 mg PO TID [facility] Last Admin: 06/11/24 08:13 Dose: Not Given Documented By: JOHNY Non-Admin Reason: Patient Refused Duloxetine HCl (Duloxetine Hcl 20 Mg Capsule.) 40 mg PO BEDTIME [facility] Last Admin: 06/10/24 22:41 Dose: Not Given Documented By: DEISY Non-Admin Reason: Pt refused sec to sore throat Ferrous Sulfate (Ferrous Sulfate 324 Mg Tablet.) 324 mg PO DAILY [facility] Last Admin: 06/11/24 08:13 Dose: Not Given Documented By: JOHNY Non-Admin Reason: Patient Refused Glucose (Glucose Gel 15 Gm Gel..Gram.) 15 gm PO Q15M PRN; Protocol PRN Reason: per Hypoglycemia Standing Ord. Dextrose (D10) 250 mls @ 750 mls/hr IV Q15M PRN; Protocol PRN Reason: per Hypoglycemia Standing Ord. Insulin Glargine (Insulin Glargine,Hum.Rec.Anlog 100 Unit/Ml 10 Ml Vial) 70 unit SUBCUT BEDTIME [facility] Insulin Human Lispro (Insulin Lispro 100 Unit/Ml 3 Ml Vial) 0 unit SUBCUT QIDACHS [facility]; Protocol Last Admin: 06/11/24 11:48 Dose: 16 unit Documented By: JOHNY Levothyroxine Sodium (Levothyroxine Sodium 112 Mcg Tablet) 112 mcg PO DAILY@0600 [facility] Last Admin: 06/11/24 05:55 Dose: Not Given Documented By: CRISTIANA Non-Admin Reason: Patient Refused Levothyroxine Sodium (Levothyroxine Sodium 25 Mcg Tablet) 25 mcg PO DAILY@0600 [facility] Last Admin: 06/11/24 05:56 Dose: Not Given Documented By: CRISTIANA Non-Admin Reason: Patient Refused Loratadine (Loratadine 10 Mg Tablet) 10 mg PO DAILY [facility] Last Admin: 06/11/24 08:13 Dose: Not Given Documented By: JOHNY Non-Admin Reason: Patient Refused Magnesium Hydroxide (Milk Of Magnesia 30 Ml Oral.Susp) 30 ml PO DAILY PRN PRN Reason: Constipation Melatonin (Melatonin 3 Mg Tablet) 6 mg PO BEDTIME PRN PRN Reason: Insomnia Morphine Sulfate (Morphine Sulfate 4 Mg/Ml Cartridge) 4 mg IVPUSH Q4H PRN; Protocol PRN Reason: Pain, Severe (Pain Scale 7-10) Last Admin: 06/10/24 22:53 Dose: 4 mg Documented By: DEISY Omeprazole (Omeprazole 20 Mg Capsule.Dr) 20 mg PO DAILY@0630 [facility] Last Admin: 06/11/24 05:56 Dose: Not Given Documented By: CRISTIANA Non-Admin Reason: Patient Refused Ondansetron HCl (Ondansetron Hcl 4 Mg/2 Ml Vial) 4 mg IVPUSH Q8H PRN PRN Reason: Nausea and Vomiting Quetiapine Fumarate (Quetiapine Fumarate 300 Mg Tablet) 300 mg PO BEDTIME [facility] Last Admin: 06/10/24 22:41 Dose: Not Given Documented By: DEISY Non-Admin Reason: Pt refused sec to sore throat Senna/Docusate Sodium (Sennosides/Docusate Sodium Tablet) 1 tab PO DAILY [facility] Last Admin: 06/11/24 08:13 Dose: Not Given Documented By: JOHNY Non-Admin Reason: Patient Refused Sodium Chloride (0.9 % Sodium Chloride Flush 3 Ml Syringe) [facility] Last Admin: 06/11/24 08:00 Dose: 3 ml Documented By: JOHNY Vitamin D (Cholecalciferol (Vitamin D3) 25 Mcg Tablet) 50 mcg PO DAILY [facility] Last Admin: 06/11/24 08:12 Dose: Not Given Documented By: JOHNY Non-Admin Reason: Patient Refused Zolpidem Tartrate (Zolpidem Tartrate 5 Mg Tablet) 10 mg PO BEDTIME [facility] Last Admin: 06/10/24 22:41 Dose: Not Given Documented By: DEISY Non-Admin Reason: Pt refused sec to sore throat Labs 06/11/24 06:53 06/11/24 06:53 Labs: Laboratory Results - last 24 hr 06/10/24 06/10/24 06/10/24 14:12 14:12 14:12 MCV MCH MCHC RDW Plt Count MPV Absolute Nucleated RBC Nucleated RBC % (auto) Anion Gap Estim Creat Clear Calc Estimated GFR POC Glucose Random Glucose Calcium Magnesium Total Bilirubin AST ALT Alkaline Phosphatase Total Protein Albumin Procalcitonin CSF Tube Number 2 1 4 CSF Volume 2.5 CSF Appearance CSF Color CSF WBC CSF RBC CSF Lymphocytes CSF Monocytes % CSF Appearance (b) CSF Glucose CSF Total Protein CSF C.neoform/gat PCR CSF CMV DNA (PCR) CSF Enterovirus (PCR) CSF E. coli K1 (PCR) CSF H. influenzae (PCR) CSF HSV I (PCR) CSF HSV II (PCR) CSF HHV 6 (PCR) CSF L.monocytogenes PCR CSF N. meningitidis PCR CSF Parechovirus (PCR) CSF S. agalactiae (PCR) CSF S. pneumoniae (PCR) CSF VZV (PCR) 06/10/24 06/10/24 06/10/24 14:12 14:12 14:12 MCV MCH MCHC RDW Plt Count MPV Absolute Nucleated RBC Nucleated RBC % (auto) Anion Gap Estim Creat Clear Calc Estimated GFR POC Glucose Random Glucose Calcium Magnesium Total Bilirubin AST ALT Alkaline Phosphatase Total Protein Albumin Procalcitonin CSF Tube Number CSF Volume 2.8 CSF Appearance CLEAR CLEAR CSF Color COLORLESS COLORLESS CSF WBC 13 H* CSF RBC CSF Lymphocytes CSF Monocytes % CSF Appearance (b) CSF Glucose CSF Total Protein CSF C.neoform/gat PCR CSF CMV DNA (PCR) CSF Enterovirus (PCR) CSF E. coli K1 (PCR) CSF H. influenzae (PCR) CSF HSV I (PCR) CSF HSV II (PCR) CSF HHV 6 (PCR) CSF L.monocytogenes PCR CSF N. meningitidis PCR CSF Parechovirus (PCR) CSF S. agalactiae (PCR) CSF S. pneumoniae (PCR) CSF VZV (PCR) 06/10/24 06/10/24 06/10/24 14:12 14:12 14:12 MCV MCH MCHC RDW Plt Count MPV Absolute Nucleated RBC Nucleated RBC % (auto) Anion Gap Estim Creat Clear Calc Estimated GFR POC Glucose Random Glucose Calcium Magnesium Total Bilirubin AST ALT Alkaline Phosphatase Total Protein Albumin Procalcitonin CSF Tube Number CSF Volume CSF Appearance CSF Color CSF WBC 20 H* CSF RBC 0 0 CSF Lymphocytes 81 78 CSF Monocytes % 19 CSF Appearance (b) CSF Glucose CSF Total Protein CSF C.neoform/gat PCR CSF CMV DNA (PCR) CSF Enterovirus (PCR) CSF E. coli K1 (PCR) CSF H. influenzae (PCR) CSF HSV I (PCR) CSF HSV II (PCR) CSF HHV 6 (PCR) CSF L.monocytogenes PCR CSF N. meningitidis PCR CSF Parechovirus (PCR) CSF S. agalactiae (PCR) CSF S. pneumoniae (PCR) CSF VZV (PCR) 06/10/24 06/10/24 06/10/24 14:12 15:41 21:36 MCV MCH MCHC RDW Plt Count MPV Absolute Nucleated RBC Nucleated RBC % (auto) Anion Gap Estim Creat Clear Calc Estimated GFR POC Glucose 322 H 287 H Random Glucose Calcium Magnesium Total Bilirubin AST ALT Alkaline Phosphatase Total Protein Albumin Procalcitonin CSF Tube Number CSF Volume CSF Appearance CSF Color CSF WBC CSF RBC CSF Lymphocytes CSF Monocytes % 22 CSF Appearance (b) Clear, Colorless CSF Glucose 201 CSF Total Protein 81.4 H CSF C.neoform/gat PCR Not Detected CSF CMV DNA (PCR) Not Detected CSF Enterovirus (PCR) Not Detected CSF E. coli K1 (PCR) Not Detected CSF H. influenzae (PCR) Not Detected CSF HSV I (PCR) Not Detected CSF HSV II (PCR) Not Detected CSF HHV 6 (PCR) Not Detected CSF L.monocytogenes PCR Not Detected CSF N. meningitidis PCR Not Detected CSF Parechovirus (PCR) Not Detected CSF S. agalactiae (PCR) Not Detected CSF S. pneumoniae (PCR) Not Detected CSF VZV (PCR) Not Detected 06/11/24 06/11/24 06/11/24 06:53 07:25 11:16 MCV 78.9 L MCH 25.3 L MCHC 32.1 RDW 15.6 Plt Count 171 MPV 12.6 H Absolute Nucleated RBC 0.020 H Nucleated RBC % (auto) 0.1 Anion Gap 11 L Estim Creat Clear Calc 57.9 Estimated GFR 51 POC Glucose 303 H 291 H Random Glucose 332 H Calcium 8.9 Magnesium 2.4 Total Bilirubin 0.6 AST 64 H ALT 50 H Alkaline Phosphatase 117 Total Protein 6.8 Albumin 3.0 L Procalcitonin 4.39 CSF Tube Number CSF Volume CSF Appearance CSF Color CSF WBC CSF RBC CSF Lymphocytes CSF Monocytes % CSF Appearance (b) CSF Glucose CSF Total Protein CSF C.neoform/gat PCR CSF CMV DNA (PCR) CSF Enterovirus (PCR) CSF E. coli K1 (PCR) CSF H. influenzae (PCR) CSF HSV I (PCR) CSF HSV II (PCR) CSF HHV 6 (PCR) CSF L.monocytogenes PCR CSF N. meningitidis PCR CSF Parechovirus (PCR) CSF S. agalactiae (PCR) CSF S. pneumoniae (PCR) CSF VZV (PCR) Microbiology Microbiology Results: Microbiology 06/10/24 14:12 Gram Stain - Final Cerebrospinal Fluid CSF Examination - Final Fluid Description - Final CSF Culture - Preliminary No growth after 1 day 06/08/24 08:52 Blood Culture - Preliminary Blood - Venous No growth after 48 hours. 06/08/24 08:46 Blood Culture - Preliminary Blood - Venous No growth after 48 hours. Assessment and Plan (1) Serum sickness: Status: Acute Assessment and Plan: d4 58yo M with ITP recently started on rituximab (05/28 + 06/04/24) presenting with several days of diffuse arthralgias and fever SIRS suspected due to serum sickness-like reaction aseptic meningitis - most likely SIRS due to SSLR but significant risk of infection immunosuppression. ID consulted; was treated with vancomycin + cefepime started 06/08. CSF with 13->20 WBCs but PCR negative. Per ID stop vancomycin + cefepime. Also stop atovaquone that was started on 06/09 to cover PJP. Does have GBS in urine though I doubt septic from this and was covered by the other antibiotics. - per ID, 10d of doxycycline to cover tickborne illness; serologies + molecular panel pending - BCx negative. PCT + CRP elevated but likely due to serum sickness. - COMFORT virus PCR pending suspected serum sickness-like reaction to rituximab - Heme-Onc consulted. Started methylprednisolone IV 60 mg bid 06/08. Will decrease to 30 mg bid today. Follow inflammatory markers as above dysphagia/odynophagia - strep screen negative, CT neck suggests only calcific tendinitis of the longus colli musculature. and mild reactive retropharyngeal effusion. 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 acute lactic acidosis - suspected due to Serum sickness but was given 30 cc/kg IV fluids per IBW DAY - likely prerenal from SSLR; held lisinopril; improved with LR resuscitation hyperK - continue to hold lisinopril; got 1 dose Lokelma yesterday DM2 - basal-bolus insulin nonobstructive CAD - continue ASA, atorvastatin IBS - dicyclomine mood disorder - clonazepam, quetiapine, zolpidem, duloxetine hypothyroidism - continue LT4 morbid obesity - diet/exercise counseling VTE ppx - SCDs; start enoxaparin 24h after LP dispo - PT eval ordered In my clinical judgment, the patient requires continued inpatient hospitalization for the following reasons: IV steroids Total time managing care of this patient today: 50 minutes. Quality Stroke Does the patient have a stroke diagnosis?: No VTE Prior VTE?: No VTE Risk Level:: Medical - moderate - high VTE Device Contraindication: N/A - Device Ordered VTE Drug Contraindication: Treatment Not Indicated
--- NOTE | 2024-06-11 15:11 | MHC.SL.SWA ---
Speech Pathologist Impression: Risk of Aspiration Due to: Poor PO Intake Dysphasia Diet Status: Liquid Consistency and Strategies for Safe Swallow: Liquid Intake Recommendation: Thin Liquid Intake Strategies: Unrestricted Solid Food Consistency: Dietary Recommendations: Regular Additional Modifications to Solid Foods: Allow patient to have food brought from home or from friend's home or restaurant. Oral Medication Intake: Whole with Liquid Please contact the pharmacy regarding appropriate crushable or liquid drug formulations that are available whenever modified delivery is recommended. Compensatory Strategies and Precautions to be Taken for Safe Swallow: Sitting Upright (90 deg) Supervision While Eating and Drinking for Safe Swallow: None Needed Foods to Avoid: Swallowing Recommended Treatments: Recommendation for Speech: NA:Typical Evaluation Comment: Patient presents with oral motor function and swallow WFL on all food and liquid consistencies. Patient reports not history of difficulty with swallowing, believes that request for eval was due to her refusing food. Patient explained that she has been refusing food as she doesn't like menu items here, prefers food she prepares at home. Recommend patient continue on regular diet with thin liquids, pills whole with liquid. Allow patient food from outside [facility] (home, friends, restaurant) a appropriate. No further CLOTHING PRESSER service warranted at this time, will DC. Please recontact if other concerns arise. Frequency/Duration: Date Range for Service Req: Timeline to reassess: Meat Scrubber Clinican/Clinical Fellow: No Supervisory Statement: I have reviewed and agree with the student/clinical fellow's documentation: N/A Speech Language Pathologist: Pita Larose M.A., [facility]-CLOTHING PR[employer]ER
[2024-06-11] MEDS: Doxycycline Hyclate 100 MG in 0.9 % Sodium Chloride 250 ML 166.67 MG IV (15:34)
[2024-06-11 16:29] LABS: Glucose, Whole Blood 219 mg/dL (60-115)
[2024-06-11 20:07] LABS: Glucose, Whole Blood 202 mg/dL (60-115)
[2024-06-11] MEDS: methylPREDNISolone Sod Succ 125 MG/2 ML VIAL 30 MG IVPUSH (21:13)
[2024-06-11] MEDS: Insulin Glargine,Hum.rec.anlog 100 UNIT/ML 10 ML VIAL 70 UNIT SUBCUT (21:14)
[2024-06-11] MEDS: DULoxetine HCl 20 MG CAPSULE.DR 40 MG PO (21:14)
[2024-06-11] MEDS: QUEtiapine Fumarate 300 MG TABLET PO (21:14)
[2024-06-11] MEDS: clonazePAM 1 MG TABLET PO (21:15)
[2024-06-11 21:44] LABS: Lyme Abs Screen <0.90 index
[2024-06-12] VITALS (7 sets, daily range): BP systolic 126–150; BP diastolic 59–70; PULSE 65–99; RESP 17–20; TEMP 36.1–36.7; O2SAT 93–98
[2024-06-12] MEDS: Doxycycline Hyclate 100 MG in 0.9 % Sodium Chloride 250 ML 166.67 MG IV ×2 (01:11→14:53)
[2024-06-12 06:34] LABS: Hematocrit 35.4 % (37.0-47.0); Hemoglobin 11.2 g/dl (12.0-16.0); Mean Corpuscular HGB Conc 31.6 g/dl (31.0-35.0); Mean Platelet Volume 12.5 fL (9.4-12.3); NRBC Pct Auto 0.2 /100WBC (0.0-0.2); Platelet Count 175 X10*3/uL (160-400); Red Blood Count 4.48 X10*6/uL (4.20-5.50); Red Cell Distribution Width 15.6 % (11.0-16.0); White Blood Count 12.5 X10*3/uL (4.8-10.8)
[2024-06-12 06:56] LABS: Alanine Aminotransferase 41 U/L (0-31); Albumin Level 2.8 g/dL (3.5-5.0); Alkaline Phosphatase 95 U/L (39-117); Anion Gap 12 (12-20); Aspartate Amino Transferase 36 U/L (5-31); Bilirubin Total 0.4 mg/dL (0.0-1.0); Blood Urea Nitrogen 35 mg/dL (9-16); C Reactive Protein 12.98 mg/dL (< or = 0.50); Calcium 8.6 mg/dL (8.4-10.2); Carbon Dioxide 27 mmol/L (22-29); Chloride 106 mmol/L (96-108); Estimated Glomerular Filt Rate > 60; Glucose Random 190 mg/dL (60-115); Sodium 140 mmol/L (135-145); Total Protein 6.2 g/dL (6.5-8.0)
[2024-06-12 08:13] LABS: Glucose, Whole Blood 183 mg/dL (60-115)
[2024-06-12] MEDS: methylPREDNISolone Sod Succ 125 MG/2 ML VIAL 30 MG IVPUSH ×2 (08:54→22:24)
[2024-06-12] MEDS: Cholecalciferol (Vitamin D3) 25 MCG TABLET 50 MCG PO (08:55)
[2024-06-12] MEDS: Dicyclomine HCl 10 MG CAPSULE 20 MG PO ×3 (08:55→22:22)
[2024-06-12] MEDS: Ferrous Sulfate 324 MG TABLET.DR PO (08:55)
[2024-06-12] MEDS: Aspirin Enteric Coated 81 MG TABLET.DR PO (08:55)
[2024-06-12] MEDS: 0.9 % Sodium Chloride Flush 3 ML SYRINGE IVFLUSH ×3 (08:55→14:53)
[2024-06-12] MEDS: Insulin Lispro 100 UNIT/ML 3 ML VIAL SUBCUT ×4 (08:55→22:19)
[2024-06-12] MEDS: Sennosides/Docusate Sodium TABLET 1 TAB PO (08:55)
[2024-06-12] MEDS: Loratadine 10 MG TABLET PO (08:55)
[2024-06-12] MEDS: clonazePAM 1 MG TABLET PO ×2 (08:56→22:23)
[2024-06-12] MEDS: Atorvastatin Calcium 80 MG TABLET PO (08:56)
[2024-06-12 11:11] LABS: Glucose, Whole Blood 222 mg/dL (60-115)
--- NOTE | 2024-06-12 13:31 | P.PNIM_ITS ---
Subjective Subjective Date of Service: 06/12/24 Interval History: continues to remain afebrile and improve; even joint pain has improved no headache or neck stiffness dysphagia/odynophagia still present though improved Review of Systems Review of Systems: Yes all other systems are reviewed and are negative Physical Exam 2 Vital Signs: Vital Signs: Last Vital Signs Temp 97.8 F 06/12/24 11:30 Pulse 65 06/12/24 11:30 Resp 18 06/12/24 11:30 BP 144/65 H 06/12/24 11:30 Pulse Ox 98 06/12/24 11:30 O2 Del Method Nasal Cannula 06/12/24 11:30 O2 Flow Rate 2 06/12/24 11:30 BMI result Body Mass Index 46.3 Appearing in no acute distress lung sounds are clear to auscultation heart regular rate rhythm, clear S1, S2 positive bowel sounds, abdomen is soft, nontender neuro patient is alert x3, no focal deficits Objective Data Active Medications Acetaminophen (Acetaminophen 325 Mg Tablet) 650 mg PO Q6H PRN PRN Reason: Pain, Mild (Pain Scale 1-3), fever or headache Aspirin (Aspirin Enteric Coated 81 Mg Tablet.) 81 mg PO DAILY [facility] Last Admin: 06/12/24 08:55 Dose: 81 mg Documented By: BRIAN Atorvastatin Calcium (Atorvastatin Calcium 80 Mg Tablet) 80 mg PO DAILY [facility] Last Admin: 06/12/24 08:56 Dose: 80 mg Documented By: BRIAN Calcium Carbonate (Calcium Carbonate 750 Mg Tab.Chew) 750 mg PO Q4H PRN PRN Reason: Heartburn Clonazepam (Clonazepam 1 Mg Tablet) 1 mg PO BID [facility] Last Admin: 06/12/24 08:56 Dose: 1 mg Documented By: BRIAN Cyclobenzaprine HCl (Cyclobenzaprine Hcl 10 Mg Tablet) 10 mg PO BEDTIME PRN PRN Reason: Muscle Spasms Dicyclomine HCl (Dicyclomine Hcl 10 Mg Capsule) 20 mg PO TID [facility] Last Admin: 06/12/24 08:55 Dose: 20 mg Documented By: BRIAN Duloxetine HCl (Duloxetine Hcl 20 Mg Capsule.) 40 mg PO BEDTIME [facility] Last Admin: 06/11/24 21:14 Dose: 40 mg Documented By: JULIO CESAR Ferrous Sulfate (Ferrous Sulfate 324 Mg Tablet.) 324 mg PO DAILY [facility] Last Admin: 06/12/24 08:55 Dose: 324 mg Documented By: BRIAN Glucose (Glucose Gel 15 Gm Gel..Gram.) 15 gm PO Q15M PRN; Protocol PRN Reason: per Hypoglycemia Standing Ord. Dextrose (D10) 250 mls @ 750 mls/hr IV Q15M PRN; Protocol PRN Reason: per Hypoglycemia Standing Ord. Doxycycline Hyclate 100 mg/ (Sodium Chloride) 250 mls @ 166.67 mls/hr IV Q12H [facility] Last Infusion: 06/12/24 02:41 Dose: Infused Documented By: JULIO CESAR Insulin Glargine (Insulin Glargine,Hum.Rec.Anlog 100 Unit/Ml 10 Ml Vial) 70 unit SUBCUT BEDTIME [facility] Last Admin: 06/11/24 21:14 Dose: 70 unit Documented By: JULIO CESAR Insulin Human Lispro (Insulin Lispro 100 Unit/Ml 3 Ml Vial) 0 unit SUBCUT QIDACHS [facility]; Protocol Last Admin: 06/12/24 11:25 Dose: 12 unit Documented By: BRIAN Levothyroxine Sodium (Levothyroxine Sodium 112 Mcg Tablet) 112 mcg PO DAILY@0600 [facility] Last Admin: 06/12/24 06:41 Dose: Not Given Documented By: JULIO CESAR Non-Admin Reason: Patient Asleep Levothyroxine Sodium (Levothyroxine Sodium 25 Mcg Tablet) 25 mcg PO DAILY@0600 [facility] Last Admin: 06/12/24 06:41 Dose: Not Given Documented By: JULIO CESAR Non-Admin Reason: Patient Asleep Loratadine (Loratadine 10 Mg Tablet) 10 mg PO DAILY [facility] Last Admin: 06/12/24 08:55 Dose: 10 mg Documented By: BRIAN Magnesium Hydroxide (Milk Of Magnesia 30 Ml Oral.Susp) 30 ml PO DAILY PRN PRN Reason: Constipation Melatonin (Melatonin 3 Mg Tablet) 6 mg PO BEDTIME PRN PRN Reason: Insomnia Methylprednisolone Sodium Succinate (Methylprednisolone Sod Succ 125 Mg/2 Ml Vial) 30 mg IVPUSH BID [facility] Last Admin: 06/12/24 08:54 Dose: 30 mg Documented By: BRIAN Morphine Sulfate (Morphine Sulfate 4 Mg/Ml Cartridge) 4 mg IVPUSH Q4H PRN; Protocol PRN Reason: Pain, Severe (Pain Scale 7-10) Last Admin: 06/10/24 22:53 Dose: 4 mg Documented By: DEISY Omeprazole (Omeprazole 20 Mg Capsule.) 20 mg PO DAILY@0630 [facility] Last Admin: 06/12/24 06:41 Dose: Not Given Documented By: JULIO CESAR Non-Admin Reason: Patient Asleep Ondansetron HCl (Ondansetron Hcl 4 Mg/2 Ml Vial) 4 mg IVPUSH Q8H PRN PRN Reason: Nausea and Vomiting Quetiapine Fumarate (Quetiapine Fumarate 300 Mg Tablet) 300 mg PO BEDTIME [facility] Last Admin: 06/11/24 21:14 Dose: 300 mg Documented By: JULIO CESAR Senna/Docusate Sodium (Sennosides/Docusate Sodium Tablet) 1 tab PO DAILY [facility] Last Admin: 06/12/24 08:55 Dose: 1 tab Documented By: BRIAN Sodium Chloride (0.9 % Sodium Chloride Flush 3 Ml Syringe) 3 ml IVFLUSH QSHIFT [facility] Last Admin: 06/12/24 08:55 Dose: 3 ml Documented By: BRIAN Vitamin D (Cholecalciferol (Vitamin D3) 25 Mcg Tablet) 50 mcg PO DAILY [facility] Last Admin: 06/12/24 08:55 Dose: 50 mcg Documented By: BRIAN Zolpidem Tartrate (Zolpidem Tartrate 5 Mg Tablet) 10 mg PO BEDTIME [facility] Last Admin: 06/11/24 21:13 Dose: Not Given Documented By: JULIO CESAR Non-Admin Reason: Patient Refused Labs 06/12/24 06:07 06/12/24 06:07 Labs: Laboratory Results - last 24 hr 06/10/24 06/11/24 06/11/24 07:55 16:22 19:54 MCV MCH MCHC RDW Plt Count MPV Absolute Nucleated RBC Nucleated RBC % (auto) Anion Gap Estim Creat Clear Calc Estimated GFR POC Glucose 219 H 202 H Random Glucose Calcium Total Bilirubin AST ALT Alkaline Phosphatase C-Reactive Protein Total Protein Albumin Lyme Screen IgG & IgM <0.90 Lyme Progressive Test TNP 06/12/24 06/12/24 06/12/24 06:07 08:09 10:58 MCV 79.0 L MCH 25.0 L MCHC 31.6 RDW 15.6 Plt Count 175 MPV 12.5 H Absolute Nucleated RBC 0.020 H Nucleated RBC % (auto) 0.2 Anion Gap 12 Estim Creat Clear Calc 70.0 Estimated GFR > 60 POC Glucose 183 H 222 H Random Glucose 190 H Calcium 8.6 Total Bilirubin 0.4 AST 36 H ALT 41 H Alkaline Phosphatase 95 C-Reactive Protein 12.98 H Total Protein 6.2 L Albumin 2.8 L Lyme Screen IgG & IgM Lyme Progressive Test Microbiology Microbiology Results: Microbiology 06/10/24 14:12 Gram Stain - Final Cerebrospinal Fluid CSF Examination - Final Fluid Description - Final CSF Culture - Preliminary No growth after 2 days Assessment and Plan (1) Serum sickness: Status: Acute Assessment and Plan: 58yo M with ITP recently started on rituximab (05/28 + 06/04/24) presenting with several days of diffuse arthralgias and fever SIRS suspected due to serum sickness-like reaction aseptic meningitis most likely SIRS due to SSLR but significant risk of infection immunosuppression. ID consulted; was treated with vancomycin + cefepime started 06/08. CSF with 13->20 WBCs but PCR negative. Per ID stop vancomycin + cefepime. Also stop atovaquone that was started on 06/09 to cover PJP. Does have GBS in urine though I doubt septic from this and was covered by the other antibiotics. per ID, 10d of doxycycline to cover tickborne illness; serologies + molecular panel pending BCx negative. PCT + CRP elevated but likely due to serum sickness. COMFORT virus PCR pending suspected serum sickness-like reaction to rituximab Heme-Onc consulted. Started methylprednisolone IV 60 mg bid 06/08. decreased to 30 mg bid today. Follow inflammatory markers as above dysphagia/odynophagia strep screen negative, CT neck suggests only calcific tendinitis of the longus colli musculature. and mild reactive retropharyngeal effusion. 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 Resolved continue to hold lisinopril Lokelma x1 DM2 basal-bolus insulin nonobstructive CAD continue ASA, atorvastatin IBS dicyclomine mood disorder clonazepam, quetiapine, zolpidem, duloxetine hypothyroidism continue levothyroxine morbid obesity diet/exercise counseling VTE ppx SCDs; start enoxaparin 24h after LP dispo PT eval ordered In my clinical judgment, the patient requires continued inpatient hospitalization for the following reasons: IV steroids Total time managing care of this patient today: 50 minutes. Quality Stroke Does the patient have a stroke diagnosis?: No VTE Prior VTE?: No VTE Risk Level:: Medical - moderate - high VTE Device Contraindication: N/A - Device Ordered VTE Drug Contraindication: Treatment Not Indicated
[2024-06-12 16:27] LABS: Glucose, Whole Blood 209 mg/dL (60-115)
[2024-06-12 20:55] LABS: Glucose, Whole Blood 244 mg/dL (60-115)
[2024-06-12] MEDS: Insulin Glargine,Hum.rec.anlog 100 UNIT/ML 10 ML VIAL 70 UNIT SUBCUT (22:20)
[2024-06-12] MEDS: DULoxetine HCl 20 MG CAPSULE.DR 40 MG PO (22:23)
[2024-06-12] MEDS: QUEtiapine Fumarate 300 MG TABLET PO (22:23)
[2024-06-12] MEDS: Zolpidem Tartrate 5 MG TABLET 10 MG PO (22:26)
[2024-06-13] MEDS: Doxycycline Hyclate 100 MG in 0.9 % Sodium Chloride 250 ML 166.67 MG IV ×2 (01:29→12:39)
[2024-06-13] MEDS: 0.9 % Sodium Chloride Flush 3 ML SYRINGE IVFLUSH ×2 (01:31→08:00)
[2024-06-13 03:07] VITALS: BP 144/65; PULSE 75; RESP 18; TEMP 36.4; O2SAT 94
[2024-06-13] MEDS: Levothyroxine Sodium 112 MCG TABLET PO (06:12)
[2024-06-13] MEDS: Omeprazole 20 MG CAPSULE.DR PO (06:12)
[2024-06-13] MEDS: Levothyroxine Sodium 25 MCG TABLET PO (06:12)
[2024-06-13 07:03] LABS: Creatinine Clr Calc Pharmacy 72.4; Estimated Glomerular Filt Rate > 60
[2024-06-13 07:10] VITALS: BP 151/53; PULSE 70; RESP 20; TEMP 36.1; O2SAT 93
[2024-06-13 07:46] LABS: Glucose, Whole Blood 161 mg/dL (60-115)
[2024-06-13] MEDS: Insulin Lispro 100 UNIT/ML 3 ML VIAL SUBCUT ×2 (08:00→11:53)
[2024-06-13] MEDS: methylPREDNISolone Sod Succ 125 MG/2 ML VIAL 30 MG IVPUSH (08:01)
[2024-06-13] MEDS: Dicyclomine HCl 10 MG CAPSULE 20 MG PO (08:04)
[2024-06-13] MEDS: Cholecalciferol (Vitamin D3) 25 MCG TABLET 50 MCG PO (08:04)
[2024-06-13] MEDS: clonazePAM 1 MG TABLET PO (08:04)
[2024-06-13] MEDS: Ferrous Sulfate 324 MG TABLET.DR PO (08:04)
[2024-06-13] MEDS: Aspirin Enteric Coated 81 MG TABLET.DR PO (08:04)
[2024-06-13] MEDS: Atorvastatin Calcium 80 MG TABLET PO (08:04)
[2024-06-13] MEDS: Sennosides/Docusate Sodium TABLET 1 TAB PO (08:04)
[2024-06-13] MEDS: Loratadine 10 MG TABLET PO (08:05)
[2024-06-13 08:14] VITALS: O2SAT 92
[2024-06-13 11:23] VITALS: PULSE 61; PULSE 74; PULSE 84; PULSE 87; O2SAT 85; O2SAT 87; O2SAT 90; O2SAT 94
[2024-06-13 11:29] VITALS: BP 147/67; PULSE 77; RESP 20; TEMP 36.7; O2SAT 90
[2024-06-13 11:34] LABS: Glucose, Whole Blood 184 mg/dL (60-115)
--- NOTE | 2024-06-13 11:59 | PM.DS ---
DS: Providers Provider Date of Service: 06/13/24 Date of admission: 06/08/24 15:48 Primary care physician: Katelynn Guzman MD Consults: 06/08/24 22:36 Consult to Wound Care Routine Reason for consultation: evaluate area to coccyx 06/09/24 08:11 Consult to Hematology / Oncology Routine Consulting Provider: [facility] [place] Oncology/Hematology Reason for consultation: SIRs, serum sickness reaction to Rituxan? Consult to Infectious Diseases Routine Consulting Provider: [facility] [place] Infectious Disease Center Reason for consultation: SIRs, serum sickness reaction to Rituxan? DS: Diagnosis Discharge Diagnosis (1) Serum sickness: Status: Acute DS: Summary Hospital Course Hospital Course: History and physical as per admitting provider. The patient is a 58-year-old female with a past medical history of hypothyroidism, CAD, diabetes, fibromyalgia, GERD, hypertension, IBS, obesity, ITP who presents to the hospital with a several day history of diffuse arthralgias, dysphagia, fevers at home. The patient reports a history of ITP and was recently treated with rituximab (about 4 days prior to admission). She states that she initially was okay on the 1st day after infusion, however since then her symptoms have slowly progressed to the point where she is unable to ambulate and also reports odynophagia. The patient presented to the emergency room on 06/07 at which time her workup did not have any significant findings. She had an equivocal UA and has been treated with IV ceftriaxone. She continued to have persistent joint pains and was treated with multiple rounds of IV analgesics. This morning however, the patient began to have fevers and tachycardia. [place] [id number]. Again no definitive foci of infection has been found thus far. Given her recent restarting of IV rituximab, this may be related to serum sickness like reaction secondary to it. Nonetheless given her persistent fevers, she has been cultured and her antibiotic coverage has been broadened to vancomycin and cefepime. The patient's case was discussed with the on-call sample coordinator/oncologist who has recommended IV steroids and antibiotics. Patient is seen and examined in the emergency room. [employer] services were used. Currently her main complaint is of diffuse joint pain. She also reports odynophagia. She reports feeling unchanged since presenting to the emergency room. SIRS suspected due to serum sickness-like reaction aseptic meningitis most likely SIRS due to SSLR but significant risk of infection immunosuppression. ID consulted; was treated with vancomycin + cefepime started 06/08. CSF with 13->20 WBCs but PCR negative. Per ID stop vancomycin + cefepime. Also stop atovaquone that was started on 06/09 to cover PJP. per ID, 10d of doxycycline to cover tickborne illness; serologies BCx negative. Complete prednisone taper 6 more days. suspected serum sickness-like reaction to rituximab Heme-Onc consulted. Started methylprednisolone IV 60 mg bid 06/08. decreased to 30 mg bid today. Follow inflammatory markers as above dysphagia/odynophagia strep screen negative, CT neck suggests only calcific tendinitis of the longus colli musculature. and mild reactive retropharyngeal effusion acute lactic acidosis suspected due to Serum sickness but was given 30 cc/kg IV fluids per IBW DAY likely prerenal from SSLR held lisinopril initially; improved with LR resuscitation hyperK. Resolved Treated with Lokelma x1 DM2 Continue home medications nonobstructive CAD continue ASA, atorvastatin IBS dicyclomine mood disorder clonazepam, quetiapine, zolpidem, duloxetine hypothyroidism continue levothyroxine morbid obesity diet/exercise counseling Time Attestation Discharge Coordination Time (in mins): 36 Quality: Safe Use of Opioids Does Pt have an Active Cancer Diagnosis on the Problem List?: No Quality: Stroke Does the patient have a stroke diagnosis?: No Physical Exam Vital Signs: Vital Signs: Last Vital Signs Temp 98.1 F 06/13/24 11:29 Pulse 77 06/13/24 11:29 Resp 20 06/13/24 11:29 BP 147/67 H 06/13/24 11:29 Pulse Ox 90 L 06/13/24 11:29 O2 Del Method Room Air 06/13/24 11:29 O2 Flow Rate 3 06/13/24 07:10 BMI result Body Mass Index 46.3 DS: Data Data Completed and Pending Labs on day of discharge: Laboratory Results - last 24 hr 06/12/24 06/12/24 06/13/24 16:13 20:48 06:11 Hold Purple Top SEE NOTE Creatinine 0.88 Estim Creat Clear Calc 72.4 Estimated GFR > 60 POC Glucose 209 H 244 H 06/13/24 06/13/24 07:38 11:28 Hold Purple Top Creatinine Estim Creat Clear Calc Estimated GFR POC Glucose 161 H 184 H Discharge Plan Discharge Anticipated Discharge Date/Time: 06/13/24 11:43 Patient Disposition: Home Health Service Discharge Diagnosis: Sirs Serum sickness Aseptic meningitis Dysphagia Lactic acidosis DAY Hyperkalemia Referrals: Siria LUCAS [Outside] - 1 Week Katelynn Guzman MD [Primary Care Provider] - 1 Week Discharge Medications: New doxycycline hyclate 100 mg tablet 100 mg PO BID Qty: 14 0RF prednisone 10 mg tablet See Taper PO DIRECTED Qty: 9 0RF Taper: Prednisone 20 mg daily for 3 Days and 0 Hour 10 mg daily for 3 Days and 0 Hour Rx Instructions: see taper instructions Continued (DME) pen needle, diabetic [BD Karla 2nd Gen Pen Needle] 32 gauge x 5/32 needle See Rx Instructions .MEDSUPPLY Qty: 100 11RF Rx Instructions: Twice a day (DME) FreeStyle Lite Strips Strip See Rx Instructions .ROUTE .MEDSUPPLY Qty: 100 11RF Rx Instructions: As directed four times a day (DME) lancets [FreeStyle Lancets] 28 gauge misc See Rx Instructions .ROUTE .MEDSUPPLY Qty: 100 11RF Rx Instructions: 4 times a day ferrous sulfate 325 mg (65 mg iron) Tablet 325 mg PO DAILY Qty: 90 6RF atorvastatin 80 mg tablet 80 mg PO DAILY 90 Days Qty: 90 0RF Rx Instructions: OVERDUE FOR APPT. PLEASE CALL [phone] TO SCHEDULE AN APPT SO WE CAN REFILL THIS MED. You can also opt to get future refills from your PCP. Thank you. cetirizine 10 mg Tablet 10 mg PO DAILY clonazepam 1 mg Tablet 1 mg PO BID cyanocobalamin (vitamin B-12) 1,000 mcg/mL Solution 1,000 mcg IM QMONTH omeprazole 20 mg Capsule,Delayed Release(Dr/Ec) 20 mg PO DAILY lisinopril 2.5 mg Tablet 2.5 mg PO DAILY levothyroxine [Tirosint] 137 mcg Capsule 137 mcg PO DAILY@0600 acetaminophen [Tylenol Extra Strength] 500 mg Tablet 1,000 mg PO QID PRN (Reason: Pain) dicyclomine 10 mg Capsule 20 mg PO TID ondansetron 8 mg Tablet,Disintegrating 8 mg PO Q8H Qty: 30 2RF ketotifen fumarate [Eye Itch Relief] 0.025 % (0.035 %) Drops 1 drp OPHTHALMIC (EYE) BID PRN (Reason: Itchiness) Rx Instructions: administer at least 8 hours apart tacrolimus 0.1 % Ointment 1 appl TOPICAL BID PRN (Reason: Flares) betamethasone, augmented 0.05 % Ointment 1 appl TOPICAL DAILY PRN (Reason: Flares) clobetasol 0.05 % Ointment 1 appl TOPICAL BID PRN (Reason: Itchiness) insulin lispro 100 unit/mL Insulin Pen 1 sliding scale dose SUBCUT USEASDIRECTD Rx Instructions: Inject 46 units before lunch and 54 units before dinner. duloxetine 20 mg Capsule,Delayed Release(Dr/Ec) 40 mg PO BEDTIME insulin glargine U-300 conc [Toujeo Max U-300 SoloStar] 300 unit/mL (3 mL) Insulin Pen 120 unit SUBCUT DAILY Baqsimi 3 mg/actuation [place],Non-Aerosol 3 mg INTRANASAL DIRECTED Rx Instructions: For Low Blood Sugar Emergency Mounjaro 5 mg/0.5 mL pen injector 10 mg subcut QWEEK quetiapine 300 mg Tablet 300 mg PO BEDTIME hydrochlorothiazide 12.5 mg Tablet 12.5 mg PO DAILY sennosides-docusate sodium [Senna Plus] 8.6-50 mg Tablet 1 tab-cap PO DAILY cyclobenzaprine 10 mg tablet 10 mg PO BEDTIME PRN (Reason: Muscle Spasms) zolpidem 10 mg tablet 10 mg PO BEDTIME cholecalciferol (vitamin D3) 50 mcg (2,000 unit) capsule 50 mcg PO DAILY aspirin [Adult Low Dose Aspirin] 81 mg tablet,delayed release (DR/EC) 81 mg PO DAILY Discharge Orders: Discharge Order (Routine); Ordered 06/13/24 Ordered By: Carole Castillo Diet: Advance to usual diet Activity on Discharge: As tolerated Stand Alone Forms: Patient Portal Discharge page Print Language: Pakistani Care Plan Goals: Complete course of antibiotic Complete prednisone taper You will be started on home oxygen, schedule an appointment with The global chief experience officer for follow up Health Concerns: Sirs Serum sickness Aseptic meningitis Dysphagia Lactic acidosis DAY Hyperkalemia Plan of Treatment: Follow-up with primary care provider as needed Take all medications as prescribed Assessment: See discharge summary Patient Instructions: Urinary Tract Infection in Women (DC), Hypomagnesemia (ED) Discharge Date/Time: 06/13/24 15:31
--- NOTE | 2024-06-13 12:11 | MHC.CM.PN ---
Patient has been medically cleared for dc to home today, with services. A referral has been made to [facility], who has been made aware of today's services.
[2024-06-13 21:09] LABS: JC Polyoma Virus RT CSF Not Detected (Not Detected)
[2024-06-14 12:09] LABS: A. Phagocytphilium DNA,RT-PCR NOT DETECTED (NOT DETECTED); Babesia Microti DNA, RT-PCR NOT DETECTED (NOT DETECTED); Borrelia Miyamotoi,DNA RT-PCR NOT DETECTED (NOT DETECTED); E.Chaffeensis DNA RT-PCR NOT DETECTED (NOT DETECTED); Lyme(Borrelia ssp)DNA RT-PCR NOT DETECTED (NOT DETECTED)
[2024-06-14 15:33] LABS: Fungitell <31 pg/mL (<60); Fungitell 1,3 beta glucan Negative
--- NOTE | 2024-06-15 11:47 | P.F2F_ITS ---
Service Date Service Date: 06/15/24 Encounter Date of encounter: 06/13/24 Reasons for Services Signs and symptoms assessed: Sirs Serum sickness Aseptic meningitis Dysphagia Reason for senior care: CV/CP assess and/or care Homebound: Leaving the home is medically contraindicated at this time without the asist of a device and/or another person due th the listed conditions above and below. Reason homebound: weakness related to hospital stay Certification: Based on the above findings, I certify that this patient is confined to the home and needs intermittent senior care care, physical therapy and/or speech therapy, or continues to need occupational therapy. The patient is under my care, and I have initiated the establishment of the plan of care. The patient will be followed by a physician who will periodically review the plan of care. Time Spent With Patient Time: Total time managing care of this patient today ____ minutes.
== END 2024-06-13 15:31 | disposition home health service (06) | DRG 50 ==
LOC: HO.ED 06-08 12:51 → HO.EDOVER 06-08 15:59 → HO.IMC 06-08 20:26
PROVIDERS: Emergency Medicine; Family Medicine; Nurse Practitioner Family; Admitting Provider Family Medicine; Emergency Provider Emergency Medicine Emergency Medical Services; PCP Family Medicine; Visit Provider Nurse Practitioner Acute Care
DX: G03.0 Nonpyogenic meningitis (principal); D84.9 Immunodeficiency, unspecified; N17.9 Acute kidney failure, unspecified; D69.3 Immune thrombocytopenic purpura; E87.21 Acute metabolic acidosis; R65.10 Systemic inflammatory response syndrome (SIRS) of non-infectious origin without acute organ dysfunction; E03.9 Hypothyroidism, unspecified; K58.9 Irritable bowel syndrome, unspecified; I25.10 Atherosclerotic heart disease of native coronary artery without angina pectoris; F39 Unspecified mood [affective] disorder; E83.42 Hypomagnesemia; E66.01 Morbid (severe) obesity due to excess calories; Z68.42 Body mass index [BMI] 45.0-49.9, adult; N39.0 Urinary tract infection, site not specified; E87.5 Hyperkalemia; R13.10 Dysphagia, unspecified; M65.28 Calcific tendinitis, other site; T80.69XA Other serum reaction due to other serum, initial encounter; T45.1X5A Adverse effect of antineoplastic and immunosuppressive drugs, initial encounter; Z87.891 Personal history of nicotine dependence; Z79.82 Long term (current) use of aspirin; Z79.4 Long term (current) use of insulin; Z79.890 Hormone replacement therapy; Z79.899 Other long term (current) drug therapy
CPT/HCPCS: 0241U; 36415; 62328; 70450; 70491; 71046; 71260; 74177; 80048; 80053; 80202; 81001; 82550; 82565; 82945; 82947; 83605; 83615; 83690; 83735; 84145; 84157; 85025; 85027; 85610; 85652; 86140; 86617; 86618; 87015; 87040; 87070; 87086; 87147; 87205; 87389; 87449; 87468; 87469; 87478; 87483; 87484; 87633; 87651; 87798; 89051; 92610; 93005; 93971; 96365; 96366; 96375; 97161; 99285; J0131; J0692; J0696; J1170; J2060; J2270; J2405; J2919; J3370; J3475; J7120; Q9967

== ENCOUNTER 2024-06-08 15:48 | Outpatient (BNV) | payer MEDICAID, SELFPAY | END 2024-06-10 13:45 | PROVIDERS: Admitting Provider Family Medicine; Emergency Provider Emergency Medicine Emergency Medical Services; PCP Family Medicine; Visit Provider Radiology Diagnostic Radiology | DX: R50.9 Fever, unspecified (principal); R51.9 Headache, unspecified | CPT/HCPCS: 62328 ==

== ENCOUNTER → 2024-06-08 15:48 | Outpatient (BNV) | payer MEDICAID, SELFPAY | PROVIDERS: Admitting Provider Family Medicine; Emergency Provider Emergency Medicine Emergency Medical Services; PCP Family Medicine; Visit Provider Family Medicine | DX: T80.69XA Other serum reaction due to other serum, initial encounter (principal) | CPT/HCPCS: 99222; 99232; 99233; 99239; G0180 ==

== ENCOUNTER → 2024-06-08 15:48 | Outpatient (BNV) | payer MEDICAID, SELFPAY | PROVIDERS: Admitting Provider Family Medicine; Emergency Provider Emergency Medicine Emergency Medical Services; PCP Family Medicine; Visit Provider Internal Medicine | DX: D69.3 Immune thrombocytopenic purpura (principal) | CPT/HCPCS: 99222; 99232 ==

== ENCOUNTER → 2024-06-08 15:48 | Outpatient (BNV) | payer MEDICAID, SELFPAY | PROVIDERS: Admitting Provider Family Medicine; Emergency Provider Emergency Medicine Emergency Medical Services; PCP Family Medicine; Visit Provider Internal Medicine | DX: D69.3 Immune thrombocytopenic purpura (principal); D72.829 Elevated white blood cell count, unspecified; R29.898 Other symptoms and signs involving the musculoskeletal system | CPT/HCPCS: 99222 ==

== ENCOUNTER 2024-07-02 08:50 | Outpatient (REF) | payer MEDICAID, SELFPAY ==
[2024-07-02 11:28] LABS: MANUAL DIFF FLAG NO
[2024-07-02 11:42] LABS: Basophils Percent Auto 0.4 % (0-2); Eosinophils Absolute Auto 0.1 X10*3/uL (0.0-0.4); Eosinophils Percent Auto 1.4 % (0-4); Hematocrit 35.1 % (37.0-47.0); Imm Gran Abs Auto 0.07 X10*3/uL (0.00-0.03); Imm Gran Pct Auto 0.8 % (0.0-0.4); Lymphocytes Absolute Auto 1.4 X10*3/uL (1.2-4.9); Lymphocytes Percent Auto 16.5 % (20-40); Mean Corpuscular HGB Conc 31.3 g/dl (31.0-35.0); Mean Corpuscular Hemoglobin 26.1 pg (27.0-33.0); Mean Corpuscular Volume 83.2 fL (80.0-98.0); Monocytes Percent Auto 11.7 % (2-11); Neutrophils Absolute Auto 5.8 x10*3/uL (2.0-8.3); Neutrophils Percent Auto 69.2 % (45-73); Platelet Count 106 X10*3/uL (160-400); Red Blood Count 4.22 X10*6/uL (4.20-5.50); White Blood Count 8.3 X10*3/uL (4.8-10.8)
[2024-07-02 12:06] LABS: Alanine Aminotransferase 48 U/L (0-31); Albumin Level 3.6 g/dL (3.5-5.0); Alkaline Phosphatase 88 U/L (39-117); Anion Gap 14 (12-20); Aspartate Amino Transferase 27 U/L (5-31); Bilirubin Direct 0.2 mg/dL (0.0-0.5); Bilirubin Total 0.4 mg/dL (0.0-1.0); Blood Urea Nitrogen 26 mg/dL (9-16); Calcium 9.2 mg/dL (8.4-10.2); Carbon Dioxide 31 mmol/L (22-29); Chloride 100 mmol/L (96-108); Cholesterol 177 mg/dL (<200); Estimated Glomerular Filt Rate 54; Glucose Random 153 mg/dL (60-115); HDL Cholesterol 69 mg/dL (>40); LDL Cholesterol Calculated 77 mg/dL (<100); Potassium 3.7 mmol/L (3.3-5.1); Sodium 141 mmol/L (135-145); Total Protein 6.4 g/dL (6.5-8.0); Triglycerides 159 mg/dL (<150)
[2024-07-02 12:28] LABS: Creatinine Urine 150.96 mg/dL; Microalbum/Creatinine Ratio Ur 188.7 ug/mg cr (<30)
== END 2024-07-02 08:51 | disposition home or self-care (01) ==
LOC: HO.HHCL 08:50
PROVIDERS: Absent Provider Internal Medicine Medical Oncology; PCP Family Medicine; Visit Provider Family Medicine
DX: E78.2 Mixed hyperlipidemia (principal); D69.3 Immune thrombocytopenic purpura; E11.42 Type 2 diabetes mellitus with diabetic polyneuropathy; Z79.4 Long term (current) use of insulin
CPT/HCPCS: 36415; 80053; 80061; 80076; 82043; 82570; 85025

== ENCOUNTER → 2024-07-16 09:02 | Outpatient (REF) | payer MEDICAID, SELFPAY ==
--- NOTE | 2024-07-16 09:05 | CA_ITS ---
Transthoracic Echocardiogram Patient (Last, First, Middle): Bhavna Enriquez D Gender: Female Date of : 1965 Age: 58 Procedure Date: 07/16/2024 Procedure Type: Transthoracic Echocardiogram Location: OP Height: 149. cm Weight: 96.16 kg BSA: 1.88 m2 Heart Rate: 80 bpm BP: 135 / 60 mmHg Orthopedics Teacher: EULALIA Referring MD: Zee Jaramillo NP Symptoms: BI LAT LEG EDEMA R60.0 Study Quality: Fair w/Contrast ECG Rhythm: Sinus Conclusions: - Normal left ventricular size and systolic function. There is mildly increased left ventricular wall thickness. The visually estimated ejection fraction is between 60-65%. There is no evidence of regional wall motion abnormalities. Diastolic function is normal for age. - Normal right ventricular cavity size and systolic function. - There is mild dilatation of the ascending aorta measuring 3.60 cm. Findings Procedure Information Contrast agent, definity, is being given per protocol without apparent complications. Left Ventricle Normal left ventricular size and systolic function. There is mildly increased left ventricular wall thickness. The visually estimated ejection fraction is between 60-65%. There is no evidence of regional wall motion abnormalities. Diastolic function is normal for age. Right Ventricle Normal right ventricular cavity size and systolic function. Atria The left atrium is normal in size. The right atrium is normal in size. Aortic Valve There is a normal trileaflet aortic valve. There is no aortic valve stenosis. There is no aortic valve regurgitation. Mitral Valve The mitral valve appears normal. There is trace mitral valve regurgitation. There is no mitral valve stenosis. Pulmonic Valve The pulmonic valve is likely normal. Tricuspid Valve Normal tricuspid valve structure. There is no tricuspid valve regurgitation. Tricuspid regurgitation envelope is inadequate for calculation of right ventricular systolic pressure. Normal right atrial pressure. Great Vessels There is mild dilatation of the ascending aorta measuring 3.60 cm. The visualized portions of the pulmonary artery and branches are normal. Venous The inferior vena cava is normal in size and collapses greater than 50% with inspiration. Pericardium/Pleural There is no evidence of pericardial effusion. Prior Study Comparison Changes noted compared to prior study dated: 07/16/2023. EF 60-65%. Measurements 2D Linear Measurements IVSd: 1.15 0.6-0.9/0.6-1.0 cm LVIDd: 5.00 3.9-5.3/4.2-5.9 cm LVIDd Index: 2.66 2.4-3.2/2.2-3.1 cm/m2 LVIDs: 2.80 2.0-3.6 cm LVPWd: 1.16 0.7-1.1 cm LA Diam: 3.70 2.7-3.8/3.0-4.0 cm LAIDs Index: 1.97 1.5-2.3 cm/m2 LV Mass: 276.24 67-162/88-224 g LV Mass Index: 146.94 43-95/49-115 g/m2 LVOT Diam: 1.90 3.0+(-)1.3 cm 2D Systolic Function EF 4C: 60.00 >55% EF 2C: 63.20 >55% EF BiP: 61.50 >55% Mitral Valve MV Pk E: 0.60 MV PK A: 0.94 MV Decel Time: 227.00 E/A: 0.60 E'Lateral: 6.96 E'Medial: 6.09 E/E' Med: 9.80 E/E' Lat: 8.60 PHT: 67.00 MVA PHT: 3.28 Decel Coles: 2.62 Aortic Valve AoV Pk Jemal: 1.37 AoV Mn Jemal: 0.93 AoV VTI: 0.27 AoV Pk Grad: 8.00 Aov Mn Grad: 4.00 LALI Cont.VTI: 2.48 LVOT LVOT Pk Jemal: 1.08 LVOT Mn Jemal: 0.75 LVOT VTI: 0.23 LVOT Pk Grad: 5.00 LVOT Mn Grad: 3.00 LVOT Diam: 1.90 LVOT Area: 2.84 Diastolic Function MV Pk E: 0.60 MV Pk A: 0.94 E/A: 0.60 E'Medial: 6.09 E/E' Med: 9.80 E' Laterial: 6.96 E/E' Lat: 8.60 Right Ventricle TAPSE (mm): 25.70 TVS' Jemal: 11.00 Great Vessels Aorta Sinus of Valsalva: 3.30 2.0-3.5 cm Ao Asc: 3.60 2.1-3.4 cm Pulmonary Valve PV Pk Jemal: 0.84 Peak PV Grad: 3.00 Updated in Other Vendor System with Status of Final Derrell Crawford MD electronically signed on 07/18/2024 8:26:13 PM with status of Final
== END ==
LOC: HO.CARD 09:02
PROVIDERS: PCP Family Medicine; Visit Provider Nurse Practitioner Primary Care
DX: R60.0 Localized edema (principal)
CPT/HCPCS: 93306; Q9957

== ENCOUNTER → 2024-07-16 09:05 | Outpatient (BNV) | payer MEDICAID, SELFPAY | PROVIDERS: PCP Family Medicine; Visit Provider Internal Medicine Cardiovascular Disease | DX: R60.0 Localized edema (principal) | CPT/HCPCS: 93306 ==

== ENCOUNTER 2024-08-16 14:33 | Outpatient (AMB) | payer MEDICAID, SELFPAY ==
[2024-08-16 14:46] VITALS: BP 108/54; PULSE 80; O2SAT 96; BMI 45.2
--- NOTE | 2024-08-16 14:46 | MHC.OFFVIS ---
Vital Signs 08/16/24 14:46 Height 4 ft 11 in Weight 223 lb 12.307 oz BMI 45.2 BP 108/54 L Blood Pressure Location Lt brachial Position Sitting Pulse 80 Pulse Source Pulse Oximeter Pulse Oximetry (%) 96 Oxygen Delivery Method Room Air Intake Visit Reasons: currently on O2 at home Professor In Family Studies Required: Yes Professor In Family Studies Language: Supplemental Nurse Name: Katelynn No OA Allergies ibuprofen [IBUPROFEN] Allergy (Mild, Verified 08/16/24 14:51) RASH HPI HPI currently on O2 at home: Details: Bhavna is a pleasant 58 year old female, former smoker, quit 30 years ago with 45+pyh with underlying hypothyroidism, CAD, diabetes, fibromyalgia, GERD, hypertension, IBS, obesity, and ITP. She was referred by ED after admitted in May for several day history of diffuse arthralgias, dysphagia, fevers at home. The patient reports a history of ITP and was recently treated with rituximab (about 4 days prior to admission). There was question of serum sickness like reaction secondary to Rixtuximab. Per Dr. Khoury's last note, holding off on Rituximab at this time and continuing patient on daily prednisone. CT revealed bibasilar atlectasis vs consolidation as well as bilateral trace pleural effusions. She was ultimately discharged on prednisone as well as 4 L supplemental oxygen. She had visiting nurse services which decreased down to 2L of supplemental oxygen. She continues to use 2L supplemental oxygen PRN and is questioning how consistent she needs to use. She does not use supplemental oxygen at [facility]. She had a prior PFT in 2018 which revealed moderate restrictive defect with normal DLCO. She reports being diagnosed with asthma as an adult, never requiring intubation. She denies seasonal allergies. She denies any occupational exposures. She denies any personal or family h/o autoimmune conditions. She notes prior h/o MAAME with CPAP at home however does not know how to use. She reports last sleep study was many years ago and can not recall the prescribing provider or DME. [facility] Medical History (Updated 08/16/24 @ 16:21 by Cely Kothari NP) Chronic ITP (idiopathic thrombocytopenia) Left hand weakness Leukocytosis CAD (coronary artery disease) Migraines Anxiety and depression IBS (irritable bowel syndrome) Sleep apnea Obesity due to excess calories Atherosclerotic cardiovascular disease Vitamin D deficiency Obesity (BMI 30-39.9) Dyslipidemia Diabetic nephropathy associated with type 2 diabetes mellitus custodial (current) use of insulin Diabetes type 2, uncontrolled Chronic ITP (idiopathic thrombocytopenia) Asthma Pernicious anemia Diabetes mellitus Fibromyalgia GERD (gastroesophageal reflux disease) Hypertension Adult hypothyroidism Chronic ITP (idiopathic thrombocytopenia) Surgical History H/O colonoscopy Hx of cataract surgery H/O: hysterectomy Family History Mother Diabetes Sister Stomach cancer Father Brother Colon cancer Brother Pancreas cancer Social History Household Members: Spouse Housing: Apartment Are you a primary healthcare specialist to a significant other at home: No Do you presently have visiting nurse or other home services: Yes Alcohol intake: current Alcohol intake frequency: does not drink Patient Tobacco Use Status: Former Tobacco user Tobacco use type: Cigarette service: No Current occupational status: unemployed Current occupation: she lives with her . Female Reproductive History Menstrual Age of Menarche: 7 Review of Systems Const Denies chills, Denies excessive sweating, Denies fever(s), Denies headache(s) and Denies night sweats Eyes Denies dry eyes, Denies irritation and Denies itchy eyes ENT Reports Normal hearing present, Denies headache(s), Denies nasal congestion, Denies nasal discharge, Denies post nasal drip and Denies sore throat Card Denies chest pain, Denies chest pain at rest, Denies chest pain with activity, Denies claudication, Denies leg edema, Denies orthopnea and Denies paroxysmal nocturnal dyspnea Resp Denies chest congestion, Denies cough, Denies excessive phlegm production, Denies pain on inspiration, Denies pain with cough, Denies stridor and Denies wheezing Musc Denies myalgias Neuro Reports Normal hearing present and Denies headache(s) Endo Denies excessive sweating Drew/Lymph Denies lymphadenopathy Aller/Immun Denies itchy eyes, Denies seasonal rhinorrhea and Denies wheezing Physical Exam Vital Signs: Last Vital Signs Pulse 80 08/16/24 14:46 BP 108/54 L 08/16/24 14:46 Pulse Ox 96 08/16/24 14:46 Oxygen Delivery Method Room Air 08/16/24 14:46 BMI result Body Mass Index 45.2 Const General: cooperative, healthy appearing, comfortable, no acute distress, well developed and alert Nutritional Appearance: obese Orientation/consciousness: patient oriented x3 Limitations: no limitations HEENT Head: Yes normal to inspection, Yes normocephalic and Yes atraumatic Ears: hearing grossly normal bilaterally and external ears normal Eyes General: appearance normal, both eyes and all related structures Eyelids: Yes eyelids normal Sclerae: sclerae normal EOM: EOMs intact bilaterally Neck Neck: Yes normal visual inspection and Yes no lymphadenopathy Lymphatic: no lymphadenopathy noted Chest Chest palpation & inspection: normal inspection of the chest Resp Effort & Inspection: normal respiratory effort, able to speak in complete sentences, no audible wheezes, no cough, no stridor, not tachypneic, no tripod positioning and no use of accessory muscles Auscultation: clear to auscultation bilaterally Cardio Jugular venous distension: no JVD Rate: regular rate Rhythm: regular rhythm Skin Other: warm, dry General skin exam: no rashes or lesions noted Neuro General: patient oriented x3 Cranial nerves: Yes Normal hearing present Cognition (Neuro): normal cognition Gait exam (Neuro): Normal gait present Extrem General: Yes normal to inspection, Yes capillary refill normal, Yes no clubbing, cyanosis or edema and Yes no pedal edema Psych Appearance: grossly normal and well kempt Speech and movement: Normal speech and movement present and Clear speech present Affect: normal affect Attitude: cooperative Thought process: Normal thought process present Thought content: Normal thought content present Insight: Good insight present (Psych) Judgement: Good judgement present (Psych) Office Procedures 6 Minute Walk Time:: 15:13 SPO2 % at rest: 95 Pulse at rest: 85 SPO2 % during excercise: 88 Pulse during excercise: 97 SPO2 % after excercise: 95 Pulse after excercise: 96 Distance in yards walked: 200 Performance Observations:: Patient wallked unassisted on level ground for 4 minutes when O2 saturation dropped to 88%. Rested for a minute with O2 applied via nasal cannula at 2L. O2 saturation returned to 94% with pulse of 98. Patient completed walk with O2 at 2L.She reports she does get short of breath when walking any distance. Patient continues to benefit from supplemental oxygen 09902 - 6 Minute Walk Results Reviewed Results Reviewed: [address] [address] [address] Scan Report Signed Patient: Bhavna Enriquez MR#: [id number] : 1965 Acct:[id number] Age/Sex: 58 / F ADM Date: 06/08/24 Loc: [facility] 450-[address]: Page Salinas MD Ordering Physician: Page Salinas MD Date of Service: 06/09/24 Procedure(s): CT chest w IV con Accession Number(s): [id number] cc: Katelynn Guzman MD; Page Salinas MD~ EXAMINATION: CT CHEST, ABDOMEN, AND PELVIS WITH CONTRAST CLINICAL INFORMATION: Immunosuppressed. Infectious source. COMPARISON: No prior chest CT. CT scans of the abdomen and pelvis dating between September 22, 2018 and March 10, 2009. TECHNIQUE: Multidetector volumetric CT imaging of the chest, abdomen, and pelvis was obtained after the administration of 85 mL of Omnipaque 350 intravenous contrast without immediate adverse reactions. Axial MIP volume rendering provided. Sagittal and coronal reformatted images were obtained. This CT examination was performed using dose optimization techniques as appropriate, variously including the following: *Automated exposure control *Adjustment of mA and/or kV according to patient size (this includes techniques or standardized protocols for targeted exams where dose is matched to indication/reason for exam; i.e. extremities or head) *Use of iterative reconstruction technique DLP: 845 mGy-cm FINDINGS: LUNGS/PLEURA: Trace bilateral pleural fluid. Bilateral dependent airspace disease, worse at the bases, consistent with consolidative infiltrates and/or atelectasis. Patent central bronchi. MEDIASTINUM: Mild cardiomegaly. No pericardial effusion. No evidence of mediastinal or hilar adenopathy by size criteria. Normal-appearing thyroid. CORONARY ARTERY CALCIFICATION: Mild. AXILLA: 1.2 cm less right axillary lymph nodes. No left axillary adenopathy identified by size criteria. LIVER, GALLBLADDER, AND BILIARY TREE: The liver measures approximately 18 cm in sagittal dimension. Suspect fatty infiltration. Unremarkable hepatic contour. No focal hepatic lesion or biliary ductal dilatation is appreciated. Unremarkable appearance of the gallbladder. PANCREAS: Unremarkable SPLEEN: Unremarkable ADRENAL GLANDS: Unremarkable KIDNEYS AND URETERS: The kidneys appear unremarkable in size, shape, and attenuation. No hydronephrosis, hydroureter, or calculi seen. BLADDER: Question layering debris within the urinary bladder versus artifact. No evidence of thickening of the wall urinary bladder nor of adjacent inflammatory changes. GASTROINTESTINAL TRACT: Tip of rectal probe lies within the rectum. The stomach, small and large bowel otherwise appear unremarkable. No diverticulosis. Normal-appearing distal ileum and vermiform appendix. ABDOMINAL WALL: No significant hernia is appreciated. LYMPH NODES: No evidence of adenopathy by size criteria. VASCULAR: Vascular tortuosity, suggesting hypertension. PELVIC VISCERA: Status post hysterectomy. OSSEOUS STRUCTURES: No acute finding. Bilateral spondylolysis at L5-S1, without significant spondylolisthesis. CT/CT chest w IV con IMPRESSION: Trace bilateral pleural fluid. Bilateral dependent airspace disease, worse at the bases, consistent with consolidative infiltrates and/or atelectasis. Question layering debris within the urinary bladder versus artifact. No evidence of thickening of the wall urinary bladder nor of adjacent inflammatory changes. Recommend clinical correlation. Mild right axillary adenopathy. Recommend clinical correlation and follow-up as clinically indicated. Additional findings, as above. 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 6MWT performed and patient continues to require 2L of supplemental oxygen with exertion. She believes [facility] is her DME. She does have portable oxygen tanks and a concentrator at home. Will send order for smaller portable tanks. Prior chest CT revealed atelectasis vs consolidation of bilateral bases, with trace bilateral pleural effusions, will send for repeat chest CT to assess for resolution. Given recent pneumonia and on steroids/steroid sparing agents, will check immune function and consider underlying autoimmune conditions. If She reports prior h/o MAAME however this has not been managed in quite some time. She continues to report daytime fatigue and nonrestorative sleep. Will send for updated home sleep study and assess for nocturnal hypoxemia given she newly requires supplemental oxygen with exertion. Will also send for updated PFT. Patient does not have any inhalers at home, will refill albuterol neb solution. She has a nebulizer machine at home. All questions were answered and patient is in agreement of plan. Will follow up in 6-8 weeks or sooner if needed. 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 CPT Codes Coding ([id number])
[2024-08-16 15:29] VITALS: PULSE 85; O2SAT 95
== END 2024-08-16 15:44 | disposition home or self-care (01) ==
LOC: HO.HPS 14:34
PROVIDERS: PCP Family Medicine; Visit Provider Nurse Practitioner Family
DX: J45.909 Unspecified asthma, uncomplicated (principal); R06.09 Other forms of dyspnea; R40.0 Somnolence; Z87.01 Personal history of pneumonia (recurrent)
CPT/HCPCS: 94618; 99204

== ENCOUNTER → 2024-08-16 14:33 | Outpatient (BNVA) | payer MEDICAID, SELFPAY | PROVIDERS: PCP Family Medicine; Visit Provider Nurse Practitioner Family | DX: J45.909 Unspecified asthma, uncomplicated (principal); R06.09 Other forms of dyspnea; R40.0 Somnolence; Z87.01 Personal history of pneumonia (recurrent) | CPT/HCPCS: 94618; 99212 ==

== ENCOUNTER 2024-08-19 13:33 | Outpatient (REF) | payer MEDICAID, SELFPAY ==
[2024-08-19 13:54] LABS: MANUAL DIFF FLAG NO
[2024-08-19 14:30] LABS: Basophils Percent Auto 0.6 % (0-2); Eosinophils Absolute Auto 0.2 X10*3/uL (0.0-0.4); Eosinophils Percent Auto 2.4 % (0-4); Hematocrit 35.5 % (37.0-47.0); Hemoglobin 11.3 g/dl (12.0-16.0); Imm Gran Abs Auto 0.03 X10*3/uL (0.00-0.03); Imm Gran Pct Auto 0.5 % (0.0-0.4); Lymphocytes Absolute Auto 1.1 X10*3/uL (1.2-4.9); Lymphocytes Percent Auto 15.9 % (20-40); Mean Corpuscular HGB Conc 31.8 g/dl (31.0-35.0); Mean Corpuscular Hemoglobin 26.8 pg (27.0-33.0); Mean Corpuscular Volume 84.3 fL (80.0-98.0); Mean Platelet Volume 12.4 fL (9.4-12.3); Monocytes Absolute Auto 0.6 X10*3/uL (0.1-1.2); Monocytes Percent Auto 8.9 % (2-11); Neutrophils Absolute Auto 4.8 x10*3/uL (2.0-8.3); Neutrophils Percent Auto 71.7 % (45-73); Platelet Count 144 X10*3/uL (160-400); Red Blood Count 4.21 X10*6/uL (4.20-5.50); Red Cell Distribution Width 16.5 % (11.0-16.0); White Blood Count 6.7 X10*3/uL (4.8-10.8)
[2024-08-19 15:02] LABS: B Type Natriuretic Peptide 11 pg/mL (<100)
[2024-08-19 15:18] LABS: TSH reflex Free T4 9.91 uIU/mL (0.32-4.0)
[2024-08-19 15:50] LABS: Free T4 (Free Thyroxine) 1.11 ng/dL (0.71-1.85)
== END 2024-08-19 13:34 | disposition home or self-care (01) ==
LOC: HO.LAB 13:33
PROVIDERS: Nurse Practitioner Primary Care; Absent Provider Nurse Practitioner Family; PCP Family Medicine; Visit Provider Internal Medicine Medical Oncology
DX: R60.0 Localized edema (principal); D69.3 Immune thrombocytopenic purpura
CPT/HCPCS: 36415; 83880; 84439; 84443; 85025

== ENCOUNTER 2024-09-17 11:08 | Outpatient (REF) | payer MEDICAID, SELFPAY ==
[2024-09-20 13:54] LABS: IgA 208 mg/dL (47-310); IgG 1033 mg/dL (600-1640); IgM 52 mg/dL (50-300)
== END 2024-09-17 11:09 | disposition home or self-care (01) ==
LOC: HO.LAB 11:08
PROVIDERS: Visit Provider Nurse Practitioner Family
DX: Z87.01 Personal history of pneumonia (recurrent) (principal); Z79.52 Long term (current) use of systemic steroids
CPT/HCPCS: 36415; 82784

== ENCOUNTER 2024-10-08 16:20 | Emergency (ER) | payer MEDICAID, SELFPAY ==
--- NOTE | ~2024-10-08 | XR_ITS ---
CLINICAL HISTORY: pain 2 view chest x-ray Comparison: None Findings: The lungs are clear. Heart size is normal. No acute fracture. IMPRESSION: 1. No acute findings. This document has been electronically signed by: Daniel Dalal MD on 10/08/2024 17:49:06
[2024-10-08 16:53] VITALS: BP 125/45; PULSE 74; RESP 15; TEMP 36.7; O2SAT 95
--- NOTE | 2024-10-08 17:08 | ECG_ITS ---
Test Reason : chest pain Blood Pressure : / mmHG Vent. Rate : 071 BPM Atrial Rate : 071 BPM P-R Int : 126 ms QRS Dur : 078 ms QT Int : 384 ms P-R-T Axes : 103 -22 146 degrees QTc Int : 417 ms Normal sinus rhythm Nonspecific T wave abnormality Abnormal ECG When compared with ECG of 07-JUN-2024 22:09, QT has shortened Referred By: Jacinta Phipps Electronically Signed By:Derrell Crawford
[2024-10-08 17:37] VITALS: BMI 39.1
[2024-10-08 17:42] VITALS: BP 125/45; PULSE 74; RESP 15; TEMP 36.2; O2SAT 97
--- NOTE | 2024-10-08 17:49 | MHC.EDTECH ---
delay on EKG due to ekg machine being used. nurse aware.
--- NOTE | 2024-10-08 18:12 | ED_ITS ---
HPI - General Adult General Chief complaint: General Medical Stated complaint: CHEST PAIN X2DAYS, SOB Time Seen by Provider: 10/08/24 17:08 Source: patient Limitations: no limitations History of Present Illness ED Provider: Jacinta Phipps PA-C HPI narrative: 58-year-old female with a history of morbid obesity, hypertension, diabetes, hyperlipidemia, asthma presents with chest pain x2 days. Patient states she is having focal discomfort under her left breast. Pain worse with movement and palpation of chest wall. Patient denies injury, trauma, new heavy lifting or exercise. Denies shortness of breath diaphoresis or abdominal pain. No nausea vomiting or fever. Patient states she has not had recent cough or cold symptoms. Related Data Home Medications ?Medication ?Instructions ?Recorded ?Confirmed cetirizine 10 mg tablet 10 mg PO DAILY 07/18/20 09/17/24 clonazepam 1 mg tablet 1 mg PO BID 07/18/20 09/17/24 cyanocobalamin (vitamin B-12) 1,000 mcg IM QMONTH 07/18/20 09/17/24 1,000 mcg/mL injection solution levothyroxine 137 mcg capsule 137 mcg PO DAILY@0600 07/18/20 09/17/24 (Tirosint) lisinopril 2.5 mg tablet 2.5 mg PO DAILY 07/18/20 09/17/24 omeprazole 20 mg capsule,delayed 20 mg PO DAILY 07/18/20 09/17/24 release acetaminophen 500 mg tablet 1,000 mg PO QID PRN Pain 08/25/20 09/17/24 (Tylenol Extra Strength) dicyclomine 10 mg capsule 20 mg PO TID 12/11/20 09/17/24 cyclobenzaprine 10 mg tablet 10 mg PO BEDTIME PRN Muscle Spasms 12/26/20 09/17/24 aspirin 81 mg tablet,delayed 81 mg PO DAILY 07/03/21 09/17/24 release (Adult Low Dose Aspirin) cholecalciferol (vitamin D3) 50 50 mcg PO DAILY 07/03/21 09/17/24 mcg (2,000 unit) capsule zolpidem 10 mg tablet 10 mg PO BEDTIME 07/03/21 09/17/24 duloxetine 20 mg capsule,delayed 40 mg PO BEDTIME 06/08/24 09/17/24 release glucagon 3 mg/actuation nasal 3 mg intranasal DIRECTED 06/08/24 09/17/24 spray (Baqsimi) hydrochlorothiazide 12.5 mg tablet 12.5 mg PO DAILY 06/08/24 09/17/24 insulin glargine U-300 conc 300 120 unit subcut DAILY 06/08/24 09/17/24 unit/mL (3 mL) subcutaneous pen (Toujeo Max U-300 SoloStar) insulin lispro 100 unit/mL 1 sliding scale dose subcut 06/08/24 09/17/24 subcutaneous pen USEASDIRECTD ketotifen fumarate 0.025 % (0.035 1 drp ophthalmic (eye) BID PRN 06/08/24 09/17/24 %) eye drops (Eye Itch Relief) Itchiness quetiapine 300 mg tablet 300 mg PO BEDTIME 06/08/24 09/17/24 sennosides 8.6 mg-docusate sodium 1 tab-cap PO DAILY 06/08/24 09/17/24 50 mg tablet (Senna Plus) tacrolimus 0.1 % topical ointment 1 appl topical BID PRN Flares 06/08/24 09/17/24 tirzepatide 5 mg/0.5 mL 10 mg subcut QWEEK 06/08/24 09/17/24 subcutaneous pen injector (Shun) Previous Rx's ?Medication ?Instructions ?Recorded pen needle, diabetic 32 gauge x #100 ea 01/09/22 (BD Karla 2nd Gen Pen Needle) blood sugar diagnostic (FreeStyle #100 ea 06/28/22 Lite Strips) lancets 28 gauge (FreeStyle #100 ea 06/28/22 Lancets) ferrous sulfate 325 mg (65 mg 325 mg PO DAILY #90 tabs 09/22/23 iron) tablet atorvastatin 80 mg tablet 80 mg PO DAILY 90 days #90 tabs 10/16/23 tramadol 25 mg tablet 25 mg PO Q6H PRN Breakthrough 07/23/24 Pain, Moderate #30 tabs prednisone 5 mg tablet 5 mg PO DIRECTED #60 tabs 08/19/24 ondansetron 8 mg disintegrating 8 mg PO Q8H #30 tabs 09/15/24 tablet tramadol 50 mg tablet 50 mg PO Q8H PRN Breakthrough 10/07/24 Pain, Moderate #30 tabs Allergies Allergy/AdvReac Type Severity Reaction Status Date / Time ibuprofen [IBUPROFEN] Allergy Mild RASH Verified 10/08/24 17:38 Review of Systems 2 Review of Systems: Yes all other systems are reviewed and are negative Constitutional: Constitutional: Denies fatigue and Denies fever(s) Cardiovascular: Cardiovascular: Reports chest pain and Denies dyspnea Respiratory: Respiratory: Denies cough and Denies dyspnea Gastrointestinal: Gastrointestinal: Denies abdominal pain, Denies nausea and Denies vomiting Endocrine: Endocrine: Denies fatigue PMFSH Past Medical History Attestation statement: The following information was validated with the patient. Medical History (Updated 10/08/24 @ 21:19 by STEPHEN Tracey) Chronic ITP (idiopathic thrombocytopenia) Left hand weakness Leukocytosis CAD (coronary artery disease) Migraines Anxiety and depression IBS (irritable bowel syndrome) Sleep apnea Obesity due to excess calories Atherosclerotic cardiovascular disease Vitamin D deficiency Obesity (BMI 30-39.9) Dyslipidemia Diabetic nephropathy associated with type 2 diabetes mellitus MCC (current) use of insulin Diabetes type 2, uncontrolled Chronic ITP (idiopathic thrombocytopenia) Asthma Pernicious anemia Diabetes mellitus Fibromyalgia GERD (gastroesophageal reflux disease) Hypertension Adult hypothyroidism Chronic ITP (idiopathic thrombocytopenia) Surgical History H/O colonoscopy Hx of cataract surgery H/O: hysterectomy Family History Family History Mother Diabetes Sister Stomach cancer Father Brother Colon cancer Brother Pancreas cancer Social History Social History Household Members: Spouse Housing: Apartment Are you a primary child care director to a significant other at home: No Do you presently have visiting nurse or other home services: Yes Alcohol intake: current Alcohol intake frequency: does not drink Patient Tobacco Use Status: Former Tobacco user Tobacco use type: Cigarette Advance Directives: No Advance Directives Information Provided: No Do you have a plan to hurt others: No Plan service: No Current occupational status: unemployed Current occupation: she lives with her . Physical Exam ED Vital Signs: Vital Signs - 24 hr 10/08/24 16:53 10/08/24 17:42 10/08/24 19:40 Temperature 98.0 F 97.2 F 98.3 F Pulse Rate 74 74 73 Respiratory Rate 15 15 16 Blood Pressure 125/45 L 125/45 L 121/62 Pulse Oximetry 95 97 94 Oxygen Delivery Method Room Air Room Air Room Air BMI result Body Mass Index 39.1 Const Other: Alert, overall well-appearing Orientation/consciousness: patient oriented x3 Chest Other: Pain elicited with palpation underneath the left breast along lower rib border, Resp Other: Nonlabored respiration Cardio Other: Normal peripheral perfusion GI Other: Abdomen is soft, obese, nontender to palpation no guarding Skin Other: Warm dry no rash Neuro General: patient oriented x3, no focal motor deficits and CN's II-XI intact bilaterally Psych Other: Calm cooperative Medications Administered Discontinued Medications Generic Name Dose Route Start Last Admin Trade Name Freq PRN Reason Stop Dose Admin Methocarbamol 750 mg 10/08/24 17:53 10/08/24 18:40 Methocarbamol 750 Mg Tablet PO 10/08/24 17:54 750 mg ONCE ONE Administration Medical Decision Making Medical Decision Making MDM Narrative: 58-year-old female with a history of morbid obesity, hypertension, diabetes, hyperlipidemia, asthma presents with chest pain x2 days. Patient states she is having focal discomfort under her left breast. Pain worse with movement and palpation of chest wall. Patient denies injury, trauma, new heavy lifting or exercise. Denies shortness of breath diaphoresis or abdominal pain. No nausea vomiting or fever. Patient states she has not had recent cough or cold symptoms. Problem: Hypertension, diabetes, hyperlipidemia, obesity History: Per patient I have considered the following differential diagnoses: ACS, costochondritis, chest wall strain, pancreatitis Plan: ACS was considered, the patient has numerous risk factors for coronary artery disease, screening labs including troponin EKG and chest x-ray were obtained. However, I do not believe this to be ACS, that the patient has reproducible pain with palpation of chest wall, she has does not have a mechanism. Given distribution I also thought about pancreatitis, however she is not having pain within the left upper quadrant with deep palpation. We will give a muscle relaxant for her discomfort as she can not have ibuprofen. Thought about costochondritis, however she has not had preceding viral syndrome I have independently reviewed the following tests: Labs: No leukocytosis, not anemic, magnesium subtly low at 1.5, no other electrolyte abnormalities, 1st troponin 3.3, the 2nd 3.3 EKG: Normal sinus rhythm, no ischemic changes no ectopy rate is 71, QTC 417 Chest x-ray:MPRESSION: 1. No acute findings. This document has been electronically signed by: Daniel Dalal MD on Lab Data 10/08/24 18:08 10/08/24 18:08 Labs: Lab Results 10/08/24 10/08/24 10/08/24 Range/Units 18:07 18:08 20:38 WBC 7.8 (4.8-10.8) X10*3/uL RBC 4.77 (4.20-5.50) X10*6/uL Hgb 12.7 (12.0-16.0) g/dl Hct 39.6 (37.0-47.0) % MCV 83.0 (80.0-98.0) fL MCH 26.6 L (27.0-33.0) pg MCHC 32.1 (31.0-35.0) g/dl RDW 14.0 (11.0-16.0) % Plt Count 154 L (160-400) X10*3/uL MPV 12.9 H (9.4-12.3) fL Immature Gran % (Auto) 0.3 (0.0-0.4) % Neut % (Auto) 78.2 H (45-73) % Lymph % (Auto) 11.2 L (20-40) % [place] % (Auto) 7.7 (2-11) % Eos % (Auto) 1.8 (0-4) % Baso % (Auto) 0.8 (0-2) % Lymph # (Auto) 0.9 L (1.2-4.9) X10*3/uL [place] # (Auto) 0.6 (0.1-1.2) X10*3/uL Eos # (Auto) 0.1 (0.0-0.4) X10*3/uL Baso # (Auto) 0.1 (0.0-0.2) X10*3/uL Abs Immat Gran (auto) 0.02 (0.00-0.03) X10*3/uL Absolute Neuts (auto) 6.1 (2.0-8.3) x10*3/uL Absolute Nucleated RBC 0.000 (0.0-0.012) X10*3/uL Nucleated RBC % (auto) 0.0 (0.0-0.2) /100WBC Sodium 141 (135-145) mmol/L Potassium 4.4 (3.3-5.1) mmol/L Chloride 100 (96-108) mmol/L Carbon Dioxide 30 H (22-29) mmol/L Anion Gap 15 (12-20) BUN 17 H (9-16) mg/dL Creatinine 1.08 (0.5-1.4) mg/dL Estim Creat Clear Calc 62.5 Estimated GFR 52 Random Glucose 124 H (60-115) mg/dL Calcium 9.7 D (8.4-10.2) mg/dL Magnesium 1.5 L (1.6-2.6) mg/dL Total Bilirubin 0.3 (0.0-1.0) mg/dL AST 34 H (5-31) U/L ALT 35 H (0-31) U/L Alkaline Phosphatase 70 (39-117) U/L Troponin I High Sens 3.3 3.3 (<3.5-17.0) ng/L Total Protein 6.8 (6.5-8.0) g/dL Albumin 3.8 (3.5-5.0) g/dL Lipase 45 (8-78) U/L Discharge Plan Discharge Clinical Impression: Chest wall pain Patient Disposition: Home, Self-Care Instructions: Chest Pain (ED) Additional Instructions: Your discomfort is consistent with chest wall pain. All of your screening labs were normal including 2 cardiac enzymes, your chest x-ray is clear and there were no concerning changes on EKG. You can continue to use your prescribed extra-strength Tylenol 1000 mg taken every 8 hours, for pain. Follow up with your primary care provider as needed. Prescriptions: No Action (DME) pen needle, diabetic [BD Karla 2nd Gen Pen Needle] 32 gauge x 5/32 needle See Rx Instructions .MEDSUPPLY Qty: 100 11RF Rx Instructions: Twice a day (DME) FreeStyle Lite Strips Strip See Rx Instructions .ROUTE .MEDSUPPLY Qty: 100 11RF Rx Instructions: As directed four times a day (DME) lancets [FreeStyle Lancets] 28 gauge misc See Rx Instructions .ROUTE .MEDSUPPLY Qty: 100 11RF Rx Instructions: 4 times a day ferrous sulfate 325 mg (65 mg iron) Tablet 325 mg PO DAILY Qty: 90 6RF atorvastatin 80 mg tablet 80 mg PO DAILY 90 Days Qty: 90 0RF Rx Instructions: OVERDUE FOR APPT. PLEASE CALL [phone] TO SCHEDULE AN APPT SO WE CAN REFILL THIS MED. You can also opt to get future refills from your PCP. Thank you. prednisone 5 mg Tablet 5 mg PO DIRECTED Qty: 60 3RF Rx Instructions: see taper instructions. Take 15 mg p.o. daily for 1 week. Then cut down to 10 mg p.o. daily for 1 week. Then follow-up with labs. cetirizine 10 mg Tablet 10 mg PO DAILY clonazepam 1 mg Tablet 1 mg PO BID cyanocobalamin (vitamin B-12) 1,000 mcg/mL Solution 1,000 mcg IM QMONTH omeprazole 20 mg Capsule,Delayed Release(Dr/Ec) 20 mg PO DAILY lisinopril 2.5 mg Tablet 2.5 mg PO DAILY levothyroxine [Tirosint] 137 mcg Capsule 137 mcg PO DAILY@0600 acetaminophen [Tylenol Extra Strength] 500 mg Tablet 1,000 mg PO QID PRN (Reason: Pain) dicyclomine 10 mg Capsule 20 mg PO TID tramadol 25 mg Tablet 25 mg PO Q6H PRN (Reason: Breakthrough Pain, Moderate) Qty: 30 0RF ondansetron 8 mg Tablet,Disintegrating 8 mg PO Q8H Qty: 30 2RF tramadol 50 mg Tablet 50 mg PO Q8H PRN (Reason: Breakthrough Pain, Moderate) Qty: 30 0RF ketotifen fumarate [Eye Itch Relief] 0.025 % (0.035 %) Drops 1 drp OPHTHALMIC (EYE) BID PRN (Reason: Itchiness) Rx Instructions: administer at least 8 hours apart tacrolimus 0.1 % Ointment 1 appl TOPICAL BID PRN (Reason: Flares) insulin lispro 100 unit/mL Insulin Pen 1 sliding scale dose SUBCUT USEASDIRECTD Rx Instructions: Inject 46 units before lunch and 54 units before dinner. duloxetine 20 mg Capsule,Delayed Release(Dr/Ec) 40 mg PO BEDTIME insulin glargine U-300 conc [Toujeo Max U-300 SoloStar] 300 unit/mL (3 mL) Insulin Pen 120 unit SUBCUT DAILY Baqsimi 3 mg/actuation [place],Non-Aerosol 3 mg INTRANASAL DIRECTED Rx Instructions: For Low Blood Sugar Emergency Mounjaro 5 mg/0.5 mL pen injector 10 mg subcut QWEEK quetiapine 300 mg Tablet 300 mg PO BEDTIME hydrochlorothiazide 12.5 mg Tablet 12.5 mg PO DAILY sennosides-docusate sodium [Senna Plus] 8.6-50 mg Tablet 1 tab-cap PO DAILY cyclobenzaprine 10 mg tablet 10 mg PO BEDTIME PRN (Reason: Muscle Spasms) zolpidem 10 mg tablet 10 mg PO BEDTIME cholecalciferol (vitamin D3) 50 mcg (2,000 unit) capsule 50 mcg PO DAILY aspirin [Adult Low Dose Aspirin] 81 mg tablet,delayed release (DR/EC) 81 mg PO DAILY Print Language: Latvian
[2024-10-08 18:13] LABS: MANUAL DIFF FLAG NO
[2024-10-08 18:18] LABS: Basophils Absolute Auto 0.1 X10*3/uL (0.0-0.2); Basophils Percent Auto 0.8 % (0-2); Eosinophils Absolute Auto 0.1 X10*3/uL (0.0-0.4); Eosinophils Percent Auto 1.8 % (0-4); Hematocrit 39.6 % (37.0-47.0); Hemoglobin 12.7 g/dl (12.0-16.0); Imm Gran Abs Auto 0.02 X10*3/uL (0.00-0.03); Imm Gran Pct Auto 0.3 % (0.0-0.4); Lymphocytes Absolute Auto 0.9 X10*3/uL (1.2-4.9); Lymphocytes Percent Auto 11.2 % (20-40); Mean Corpuscular HGB Conc 32.1 g/dl (31.0-35.0); Mean Corpuscular Hemoglobin 26.6 pg (27.0-33.0); Mean Platelet Volume 12.9 fL (9.4-12.3); Monocytes Absolute Auto 0.6 X10*3/uL (0.1-1.2); Monocytes Percent Auto 7.7 % (2-11); Neutrophils Absolute Auto 6.1 x10*3/uL (2.0-8.3); Neutrophils Percent Auto 78.2 % (45-73); Platelet Count 154 X10*3/uL (160-400); Red Blood Count 4.77 X10*6/uL (4.20-5.50); White Blood Count 7.8 X10*3/uL (4.8-10.8)
[2024-10-08 18:30] LABS: Alanine Aminotransferase 35 U/L (0-31); Albumin Level 3.8 g/dL (3.5-5.0); Alkaline Phosphatase 70 U/L (39-117); Anion Gap 15 (12-20); Aspartate Amino Transferase 34 U/L (5-31); Bilirubin Total 0.3 mg/dL (0.0-1.0); Blood Urea Nitrogen 17 mg/dL (9-16); Calcium 9.7 mg/dL (8.4-10.2); Carbon Dioxide 30 mmol/L (22-29); Chloride 100 mmol/L (96-108); Creatinine Clr Calc Pharmacy 62.5; Estimated Glomerular Filt Rate 52; Glucose Random 124 mg/dL (60-115); Lipase 45 U/L (8-78); Magnesium 1.5 mg/dL (1.6-2.6); Potassium 4.4 mmol/L (3.3-5.1); Sodium 141 mmol/L (135-145); Total Protein 6.8 g/dL (6.5-8.0)
[2024-10-08 18:38] LABS: Troponin-I High Sensitivity 3.3 ng/L (<3.5-17.0)
[2024-10-08] MEDS: methocarbamoL 750 MG TABLET PO (18:40)
[2024-10-08 19:40] VITALS: BP 121/62; PULSE 73; RESP 16; TEMP 36.8; O2SAT 94
--- NOTE | 2024-10-08 19:40 | MHC.EDTECH ---
This tech took over care of patient at 1900,rounded and introduced self to pt,vitals taken,pt ambulated to the bathroom with a slow and steady gait,warm blanket given, at bedside call moreno in reach
--- NOTE | 2024-10-08 20:39 | MHC.EDTECH ---
Repeat lab drawn and sent to lab
[2024-10-08 21:08] LABS: Troponin-I High Sensitivity 3.3 ng/L (<3.5-17.0)
[2024-10-08 21:36] VITALS: BP 107/85; PULSE 69; RESP 17; TEMP 36.9; O2SAT 96
== END 2024-10-08 21:37 | disposition home or self-care (01) ==
PROVIDERS: Physician Assistant Medical; Emergency Provider Emergency Medicine
DX: R07.89 Other chest pain (principal); R06.02 Shortness of breath; N64.4 Mastodynia; I10 Essential (primary) hypertension; E11.9 Type 2 diabetes mellitus without complications; I25.10 Atherosclerotic heart disease of native coronary artery without angina pectoris; Z87.891 Personal history of nicotine dependence; Z79.899 Other long term (current) drug therapy; Z79.4 Long term (current) use of insulin
CPT/HCPCS: 36415; 71046; 80053; 83690; 83735; 84484; 85025; 93005; 99283; 99285

== ENCOUNTER → 2024-10-08 17:08 | Outpatient (BNV) | payer MEDICAID, SELFPAY | PROVIDERS: Emergency Provider Emergency Medicine; Visit Provider Specialist | DX: R07.9 Chest pain, unspecified (principal) | CPT/HCPCS: 71046 ==

== ENCOUNTER → 2024-10-08 17:08 | Outpatient (BNV) | payer MEDICAID, SELFPAY | PROVIDERS: Emergency Provider Emergency Medicine; Visit Provider Internal Medicine Cardiovascular Disease | DX: R07.9 Chest pain, unspecified (principal); R94.31 Abnormal electrocardiogram [ECG] [EKG] | CPT/HCPCS: 93010 ==

== ENCOUNTER 2024-10-26 08:52 | Outpatient (REF) | payer MEDICAID, SELFPAY ==
--- NOTE | ~2024-10-26 | CT_ITS ---
CLINICAL HISTORY: Z87.01 - Personal history of pneumonia (recurrent) CT chest without contrast Comparison: None Findings: The heart size is normal. Mild Atherosclerosis calcification of the coronary artery. The visualized thyroid and mediastinum are unremarkable. No consolidation or effusion. There is a calcified granuloma of the left upper lobe. Resolution of the small bilateral pleural effusion and the bibasilar opacity. The visualized upper abdomen is unremarkable. The bones are intact. IMPRESSION: 1. Unremarkable chest CT. This document has been electronically signed by: Kimberly Colin MD on 10/27/2024 07:00:15
--- NOTE | 2024-10-26 09:18 | PFT_ITS ---
Flows: FEV1: 79 % of predicted at 1.65 L FVC: 66 % of predicted at 1.73 L FEV1/FVC: 95 % Bronchodilator response: Present in small to medium airways only Volumes: Total lung capacity: 71 % of predicted at 3.01 L Residual volume: 62 % of predicted at 0.91 L Slow vital capacity: 74 % of predicted at 2.10 L Expiratory reserve volume: 0 % of predicted at 0 L Diffusion capacity: Mildly decreased, corrects to normal after adjustment for alveolar ventilation. Impression: Moderate restrictive ventilatory defect with bronchodilator response present in small to medium airways only. Decreased expiratory reserve volume suggests extrathoracic restriction likely secondary to abdominal obesity. Combination of decreased diffusion capacity and restrictive ventilatory defect suggests underlying pulmonary parenchymal disease. Clinical correlation is advised. MTDD
== END 2024-10-26 08:53 | disposition home or self-care (01) ==
LOC: HO.CT 08:52
PROVIDERS: PCP Family Medicine; Visit Provider Nurse Practitioner Family
DX: R06.09 Other forms of dyspnea (principal); J45.909 Unspecified asthma, uncomplicated; Z87.01 Personal history of pneumonia (recurrent)
CPT/HCPCS: 71250; 94010; 94640; 94727; 94729

== ENCOUNTER → 2024-10-26 08:56 | Outpatient (BNV) | payer MEDICAID, SELFPAY | PROVIDERS: PCP Family Medicine; Visit Provider Nuclear Medicine | DX: Z87.01 Personal history of pneumonia (recurrent) (principal) | CPT/HCPCS: 71250 ==

== ENCOUNTER → 2024-10-26 09:18 | Outpatient (BNV) | payer MEDICAID, SELFPAY | PROVIDERS: PCP Family Medicine; Visit Provider Internal Medicine Pulmonary Disease | DX: J45.909 Unspecified asthma, uncomplicated (principal) | CPT/HCPCS: 94060; 94727; 94729 ==

== ENCOUNTER 2024-11-12 12:22 | Outpatient (REF) | payer MEDICAID, SELFPAY ==
[2024-11-12 12:40] LABS: MANUAL DIFF FLAG NO
--- OUTSIDE RECORDS SUMMARY | 2024-11-12 12:48 | XMS_ITS | Encounter Summary ---
Author Organization [employer] Address [address] [place] [address] Care Team Providers Care Photographic Aide Name Role Phone Katelynn Guzman MD Primary Care Provider [phone] Heena Howard PharmD Unavailable [phone] Jere Khoury MD Unavailable [phone] Susanna Garibay Unavailable Unavailable Encounter Details Date Type Department Care Team (Late st Contact Info) Description 06/18/2024 Abstract [facility] [address] [place] [address] Katelynn Guzman MD [address] [place], [place] [phone] Social History Tobacco Use Types Packs/Day Years Used Date Smoking Tobacco: Former Cigarettes Passive Smoke Exposure: Past Smokeless Tobacco: Never Alcohol Use Standard Drinks/Week Comments Never 0 (1 standard drink = 0.6 oz pur e alcohol) Depression Answer Date Recorded Patient Health Questionnaire-9 Score 0 04/07/2024 Patient Health Questionnaire-9 Score 0 04/07/2024 Last PHQ-9: Questionnaire Data Not on file 0 04/07/2024 Housing Stability Answer Date Recorded What is your housing situation today? I have tavoed caceres 04/07/[address] you li ve. Do you have problems with any of the following? None of the above 04/07/2024 Food Insecurity Answer Date Recorded Within the past 12 months, y ou worried that your food would run out before you got money to buy more: Never True 04/07/2024 Within the past 12 months,th e food you bought just didn't last and you didn't have enough money to get more: Never True Transportation Answer Date Recorded In the past 12 months, has l ack of transportation kept you from medical appts, meetings, work or from getting things needed for daily living? No 04/07/2024 Utilities Answer Date Recorded In the past 12 months, has t he electric, gas, oil or water company threatened to shut off services in your home? No 04/07/2024 Depression Answer Date Recorded Patient Health Questionnaire-2 Score 0 04/07/2024 Internet Access Answer Date Recorded Internet Access Q1 Yes 06/11/2024 Internet Access Q2 Not on file 06/11/2024 Comments Unknown Sex and Gender Information Value Date Recorded Sex Assigned at Female 08/12/2022 10:14 AM EDT Legal Sex Female 10:14 AM EDT Gender Identity Female 08/12/2022 10:14 AM EDT Sexual Orientation Straight 08/12/2022 10 :14 AM EDT documented as of this encounter Plan of Treatment Upcoming Encounters Date Type Department Care Team (Late st Contact Info) Description 11/18/2024 1:00 PM EST Nurse Only [facility] [address] [place] [phone] 11/24/2024 2:00 PM EST Medication Management [address] [address] Heena Howard, PharmD [address] [place] [phone] 12/13/2024 11:00 AM EST Office Visit [address] [address] Katelynn Guzman MD [address] [place] [phone] documented as of this encounter Goals Goal Patient Goal Type Associated Problems Recent Progress Patient-Stated? Author Hemoglobin A1c < 7 Result Component 8.4(09/28/2024 2:38 PM EST) No Heena Howard, PharmD documented as of this encounter Procedures Procedure Name Priority Date/Time Associated Diagnosis Comments MAMMOGRAPHY Routine 06/18/2024 1:59 PM EDT documented in this encounter Results * Mammography (06/18/2024 1:59 PM EDT) Mammogram BIRADS 2 Normal, Abnormal, BIRADS 1 , BIRADS 2 Anatomical Region Laterality Modality Other us Historical Provider HEALTH MAINTENANCE Final Result documented in this encounter Visit Diagnoses Not on filedocumented in this encounter Additional Health Concerns Assessment Noted Time PHQ-9 Depression Total Score: 0 04/07/20 24 2:36 PM EDT documented as of this encounter Care Teams Photographic Aide Relationship Specialty Start Date End Date Katelynn Guzman MD [address] [place] [address] PCP - General Family Medicine 10/26/13 Heena Howard, JosephD [address] [place] [address] Pharmacist Internal Medicine 09/26/22 Jere Khoury MD [address] [place] [address] Hematology and Oncology 09/20/24 Susanna Garibay [address] [place] [phone] Ophthalmology 10/29/24 Ghislaine Stone Psychiatry 10/26/24 documented as of this encounter
--- OUTSIDE RECORDS SUMMARY | 2024-11-12 12:48 | XMS_ITS | Encounter Summary ---
Author Organization [employer] Address [address] [place] [address] Care Team Providers Care Landscaper Helper Name Role Phone Katelynn Guzman MD Primary Care Provider [phone] Heena Howard PharmD Unavailable Jere Khoury MD Unavailable [phone] Susanna Garibay Unavailable Unavailable Reason for Visit * Reason Comments Med Refill Encounter Details Date Type Department Care Team (Late st Contact Info) Description 11/09/2024 Refill [facility] [address] [place], [place] [phone] Heena Howard, PharmD [address] [place], [place] [phone] Type 2 diabetes mellitus with diabetic polyneuropathy, with long-term current use of insulin ([facility]) Social History Tobacco Use Types Packs/Day Years Used Date Smoking Tobacco: Former Cigarettes Passive Smoke Exposure: Past Smokeless Tobacco: Never Alcohol Use Standard Drinks/Week Comments Never 0 (1 standard drink = 0.6 oz pur e alcohol) Alcohol Answer Date Recorded Frequency of Alcohol Consumption Not on file 07/28/2024 Average Number of Drinks Not on file 024 Frequency of Binge Drinking Not on file 07/13 Score 0 07/28/2024 Depression Answer Date Recorded Patient Health Questionnaire-9 Score 9 07/28/2024 Patient Health Questionnaire-9 Score 9 07/28/2024 Last PHQ-9: Questionnaire Data Not on file 1 Housing Stability Answer Date Recorded What is your housing situation today? I have tavo caceres 04/07/[address] you [...] Answer Date Recorded Patient Health Questionnaire-2 Score 1 07/28/2024 Internet Access Answer Date Recorded Internet Access [...] Description 11/18/2024 1:00 PM EST Nurse Only [address] [address] 11/24/2024 2:00 PM EST Medication Management [address] [address] Heena Howard, PharmD [address] [place] [phone] 12/13/2024 11:00 AM EST Office Visit [address] [address] Katelynn Guzman MD [address] [place] [phone] documented as of this encounter Goals Goal Patient Goal Type Associated Problems Recent Progress Patient-Stated? Author Hemoglobin A1c < 7 Result Component 8.4(09/28/2024 2:38 PM EST) No Heena Howard, Luly documented as of this encounter Visit Diagnoses Diagnosis Type 2 diabetes mellitus with diabetic polyneuropathy, with long-term current use of insulin ([facility]) Recurrent major depressive episodes, moderate ([facility])- Primary Major depressive disorder, recurrent episode, moderate Dietary counseling Dietary surveillance and counseling Exercise counseling Class 3 severe obesity due to excess calories with serious comorbidity and body mass index (BMI) of 40.0 to 44.9 in adult ([facility]) Idiopathic thrombocytopenic purpura ([facility]) 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, with long-term current use of insulin ([facility]) Vitamin B deficiency Unspecified vitamin B deficiency documented in this encounter Additional Health Concerns Assessment Noted Time PHQ-9 Depression Total Score: 9 07/28/20 24 4:10 PM EDT documented as of this encounter Care Teams Landscaper Helper Relationship Specialty Start Date End Date Katelynn Guzman MD [address] [place] [address] PCP - General Family Medicine 10/26/13 Heena Howard, PharmD [address] [place] [address] Pharmacist Internal Medicine 09/26/22 Jere Khoury MD [address] [place] [address] Hematology and Oncology 09/20/24 Susanna Garibay [address] [place] [phone] Ophthalmology 10/29/24 Ghislaine Stone Psychiatry 10/26/24 documented as of this encounter
--- OUTSIDE RECORDS SUMMARY | 2024-11-12 12:48 | XMS_ITS | Encounter Summary ---
Author Organization [employer] Address [address] 7t [place] [address] Care Team Providers Care It Business Systems Analyst Name Role Phone Katelynn Guzman MD Primary Care Provider [phone]- [phone] Heena Howard PharmD Unavailable Jere Khoury MD Unavailable [phone] Susanna Garibay Unavailable Unavailable Reason for Visit * Reason Comments Med Refill Encounter Details Date Type Department Care Team (Late st Contact Info) Description 05/26/2024 Refill [facility] MEDICINE [address] [place], [place] [phone] Heena Howard, PharmD [address] [place], [place] [phone] Type 2 diabetes mellitus without complication, with long-term current use of insulin ([facility]) Social History Tobacco Use Types Packs/Day Years [...] Recorded Patient Health Questionnaire-2 Score 0 04/07/2024 Comments Unknown Sex and Gender Information Value [...] Description 11/18/2024 1:00 PM EST Nurse Only [facility] MEDICINE [address] [place] [address] 11/24/2024 2:00 PM EST Medication Management [address] [address] Heena Howard, JosephD [address] [place] [address] 12/13/2024 11:00 AM EST Office Visit [facility] MEDICINE [address] [place] [address] Katelynn Guzman MD [address] [place] [address] documented as of this encounter Goals Goal Patient Goal Type Associated Problems Recent Progress Patient-Stated? Author Hemoglobin A1c < 7 Result Component 8.4(09/28/2024 2:38 PM EST) No Heena Howard, PharmD documented as of this encounter Visit Diagnoses Diagnosis Type 2 diabetes mellitus without complication, with long-term current use of insulin ([facility]) Recurrent major depressive episodes, moderate ([facility]/H[facility])- Primary Major depressive disorder, recurrent episode, moderate Dietary counseling Dietary surveillance and counseling Exercise counseling Class 3 severe obesity due to excess calories with serious comorbidity and body mass index (BMI) of 40.0 to 44.9 in adult (CMS/HCC) Idiopathic thrombocytopenic purpura (CMS/HCC) 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 Type 2 diabetes mellitus with diabetic polyneuropathy, with long-term current use of insulin ([facility]) Vitamin B deficiency Unspecified vitamin B deficiency documented in this encounter Additional Health Concerns Assessment Noted Time PHQ-9 Depression Total Score: 0 04/07/20 24 2:36 PM EDT documented as of this encounter Care Teams It Business Systems Analyst Relationship Specialty Start Date End Date Katelynn Guzman MD [address] [place] [address] PCP - General Family Medicine 10/26/13 Heena Howard, JosephD [address] [place] [address] Pharmacist Internal Medicine 09/26/22 Jere Khoury MD [address] [place] [address] Hematology and Oncology 09/20/24 Susanna Garibay [address] [place] [address] Ophthalmology 10/29/24 Ghislaine Ritter Psychiatry 10/26/24 documented as of this encounter
--- OUTSIDE RECORDS SUMMARY | 2024-11-12 12:48 | XMS_ITS | Encounter Summary ---
Author Organization [employer] Address [address] 7[address] [place] [address] Care Team Providers Care Data Warehousing Specialist Name Role Phone Katelynn Guzman MD Primary Care Provider [phone] Heena Howard PharmD Unavailable [phone] Jere Khoury MD Unavailable [phone] Susanna Garibay Unavailable Unavailable Reason for Visit * Reason Comments Rash Encounter Details Date Type Department Care Team (Late st Contact Info) Description 11/11/2024 3:00 PM EST Office Visit [facility] [address] [place], [place] [phone] Katelynn Guzman MD [address] [place], [place] [phone] Sarai (Primary Dx) Social History Tobacco Use Types Packs/Day Years Used Date Smoking Tobacco: Former Cigarettes Passive Smoke Exposure: Past Smokeless Tobacco: Never Tobacco Cessation:Counseling Given: Not Answered Alcohol Use Standard Drinks/Week Comments Never 0 [...] AM EDT documented as of this encounter Last Filed Vital Signs Vital Sign Reading Time Taken Comments Blood Pressure 114/73 11/11/2024 2:45 PM EST Pulse 91 11/11/2024 2:45 PM EST Temperature 36.7 ??C (98 ??F) 11/11/2024 2:45 PM EST Respiratory Rate 18 11/11/2024 2:45 PM EST Oxygen Saturation 96% 11/11/2024 2:45 PM EST Inhaled Oxygen Concentration - - Weight 96.7 kg (213 lb 3.2 oz) 11/11/2024 2:45 P M EST Height 149.9 cm (4' 11 ) 11/11/2024 2:45 PM EST Body Mass Index 43.06 11/11/2024 2:45 PM EST documented in this encounter Progress Notes * Narda Bravo - 11/11/2024 3:00 PM EST Images from the original note were not included. Subjective Patient ID: Bhavna Fair is a 59 y.o. female with past medical history of type 2 diabetes, ITP, vitiligo, hypertension, fibromyalgia, carpel tunnel syndrome, anxiety, folliculitis, neuropathy, hyperlipidemia, MAAME, and depression who presents to walk in clinic for Rash. Pt reports she has noticed this rash on her forearms, posterior neck and face 2- 3 weeks ago and complains of itching. Denies being on Prednisone currently. She follows with Digital Technician. Denies any other associated symptoms. Review of Systems Constitutional: Negative for fever and unexpected weight change. Respiratory: Negative for shortness of breath. Cardiovascular: Negative for chest pain. Gastrointestinal: Negative for abdominal pain. Genitourinary: Negative for difficulty urinating. Skin: Positive for rash. Objective Visit Vitals BP 114/73 (BP Location: Left arm, Patient Position: Sitting, BP Cuff Size: Large adult) Pulse 91 Temp 98 ??F (36.7 ??C) (Temporal) Resp 18 Body mass index is 43.06 kg/m??. Physical Exam Constitutional: Appearance: Normal appearance. Cardiovascular: Rate and Rhythm: Normal rate and regular rhythm. Heart sounds: Normal heart sounds. Pulmonary: Effort: Pulmonary effort is normal. Breath sounds: Normal breath sounds. Musculoskeletal: Cervical back: Normal range of motion and neck supple. Skin: Findings: Rash (extensive erythematous palques on arms, anterior neck and face with areas of auto excoriation.) present. Comments: Complete Vitiligo. Neurological: General: No focal deficit present. Mental Status: She is alert. Psychiatric: Behavior: Behavior normal. Problem List Items Addressed This Visit Rash - Primary Rash of unknown etiology on forearms, neck and face. Extensive erythematous palques on arms, anterior neck and face with areas of auto excoriation. -called Digital Technician and pt has follow-up appt on 11/15/24. -encouraged staying away from scented creams or lotions. -prescribed diphenhydrAMINE (BENADryl) 25 MG Relevant Medications diphenhydrAMINE (BENADryl) 25 MG tablet -No evidence of acute disease process. Rash of unknown etiology. Symptoms mild. -Treating with Benadryl. -Got appt with Derm. Encouraged to follow-up. -ER precautions discussed. -Seek medical attention for worsening symptoms. I, Annise Lawrence, am serving as a scribe to document services personally performed by Dr. Bejarano, based on the patient's response to questions by provider and providers statements to me. documented in this encounter Miscellaneous Notes * Assessment & Plan Note - Narda Bravo - 11/11/2024 3:14 PM ESTAssociated Problem(s): Rash Rash of unknown etiology on forearms, neck and face. Extensive erythematous palques on arms, anterior neck and face with areas of auto excoriation. -called Digital Technician and pt has follow-up appt on 11/15/24. -encouraged staying away from scented creams or lotions. -prescribed diphenhydrAMINE (BENADryl) 25 MG documented in this encounter Plan of Treatment Upcoming Encounters Date Type Department Care Team (Late st Contact Info) Description 11/18/2024 1:00 PM EST Nurse Only [address] [address] 11/24/2024 2:00 PM EST Medication Management [address] [address] Heena Howard, PharmD [address] [place] [address] 12/13/2024 11:00 AM EST Office Visit [address] [address] Katelynn Guzman MD [address] [place] [address] documented as of this encounter Goals Goal Patient Goal Type Associated Problems Recent Progress Patient-Stated? Author Hemoglobin A1c < 7 Result Component 8.4(09/28/2024 2:38 PM EST) No Heena Howard, Luly documented as of this encounter Visit Diagnoses Diagnosis Rash- Primary Rash and other nonspecific skin eruption Recurrent major depressive episodes, moderate (CMS/HCC)- Primary Major depressive disorder, recurrent episode, moderate Dietary counseling Dietary surveillance and counseling Exercise counseling Class 3 severe obesity due to excess calories with serious comorbidity and body mass index (BMI) of 40.0 to 44.9 in adult (CMS/HCC) Idiopathic thrombocytopenic purpura (CMS/HCC) Immune thrombocytopenic 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 Type 2 diabetes mellitus with diabetic polyneuropathy, with long-term current use of insulin ([facility]) Vitamin B deficiency Unspecified vitamin B deficiency documented in this encounter Additional Health Concerns Assessment Noted Time PHQ-9 Depression Total Score: 9 07/28/20 24 4:10 PM EDT documented as of this encounter Care Teams Data Warehousing Specialist Relationship Specialty Start Date End Date Katelynn Guzman MD [address] [place] [address] PCP - General Family Medicine 10/26/13 Heena Howard, PharmD [address] [place] [address] Pharmacist Internal Medicine 09/26/22 Jere Khoury MD [address] [place] [address] Hematology and Oncology 09/20/24 Susanna Garibay [address] [place] [address] Ophthalmology 10/29/24 Ghislaine Ritter Psychiatry 10/26/24 documented as of this encounter
--- OUTSIDE RECORDS SUMMARY | 2024-11-12 12:48 | XMS_ITS | Encounter Summary ---
Author Organization [employer] Address [address] 7t [place] [address] Care Team Providers Care Rotary Surface Grinder Name Role Phone Katelynn Guzmna MD Primary Care Provider [phone] Heena Howard PharmD Unavailable Jere Khoury MD Unavailable [phone] Susanna Garibay Unavailable Unavailable Encounter Details Date Type Department Care Team (Late st Contact Info) Description 11/02/2024 3:00 PM EST Office Visit [facility] OPTOMETRY [address] [place] [address] Ermias, Jayshree, OD [address] [place] [address] Regular astigmatism of right eye (Primary Dx) Social History Tobacco Use Types [...] AM EDT documented as of this encounter Progress Notes * Jayshree Monson OD - 11/02/2024 3:00 PM EST MH glasses were dispensed, 1 of 2. documented in this encounter Plan of Treatment Upcoming Encounters Date Type Department Care Team (Late st Contact Info) Description 11/18/2024 1:00 PM EST Nurse Only [facility] MEDICINE [address] [place] [address] 11/24/2024 2:00 PM EST Medication Management [address] [phone] Heena Howard, PharmD [address] [place] [address] 12/13/2024 11:00 AM EST Office Visit [address] [address] Katelynn Guzman MD [address] [place] [address] documented as of this encounter Goals Goal Patient Goal Type Associated Problems Recent Progress Patient-Stated? Author Hemoglobin A1c < 7 Result Component 8.4(09/28/2024 2:38 PM EST) No Heena Howard, PharmD documented as of this encounter Visit Diagnoses Diagnosis Regular astigmatism of right eye- Primary Recurrent major depressive episodes, moderate (CMS/HCC)- Primary [...] polyneuropathy, with long-term current use of insulin ([facility]) Vitamin B deficiency Unspecified vitamin B deficiency documented in this encounter Additional Health Concerns Assessment Noted Time PHQ-9 Depression Total Score: 9 07/28/20 24 4:10 PM EDT documented as of this encounter Care Teams Rotary Surface Grinder Relationship Specialty Start Date End Date Katelynn Guzman MD [address] [place] [address] PCP - General Family Medicine 10/26/13 Heena Howard, PharmD [address] [place] [address] Pharmacist Internal Medicine 09/26/22 Jere Khoury MD [address] [place] [address] Hematology and Oncology 09/20/24 Susanna Garibay [address] [place] [address] Ophthalmology 10/29/24 Ghislaine Stone Psychiatry 10/26/24 documented as of this encounter
--- OUTSIDE RECORDS SUMMARY | 2024-11-12 12:48 | XMS_ITS | Encounter Summary ---
Author Organization [email or web address] Address [address] 7t [place] [address] Care Team Providers Care Business Controller Name Role Phone Katelynn Guzman MD Primary Care Provider [phone] Heena Howard PharmD Unavailable [phone] Jere Khoury MD Unavailable Encounter Details Date Type Department Care Team (Latest Contact Info) Description 10/26/2024 Travel Social History Tobacco Use Types Packs/Day Years [...] Description 11/18/2024 1:00 PM EST Nurse Only [facility] MEDICINE [address] [place] [address] 11/24/2024 2:00 PM EST Medication Management [address] [address] Heena Howard PharmD [address] [place] [address] 12/13/2024 11:00 AM EST Office Visit [address] [address] Katelynn Guzman MD [address] [place] [address] documented as of this encounter Goals Goal Patient Goal Type Associated Problems Recent Progress Patient-Stated? Author Hemoglobin A1c < 7 Result Component 8.4(09/28/2024 2:38 PM EST) No Heena Howard, PharmD documented as of this encounter Visit Diagnoses Not on filedocumented in this encounter Additional Health Concerns Assessment Noted Time PHQ-9 Depression Total Score: 9 07/28/20 24 4:10 PM EDT documented as of this encounter Care Teams Business Controller Relationship Specialty Start Date End Date Katelynn Guzman MD 230 [place] [address] PCP - General Family Medicine 10/26/13 Heena Howard PharmD [address] [place] [address] Pharmacist Internal Medicine 09/26/22 Jere Khoury MD [address] [place] [address] Hematology and Oncology 09/20/24 [facility] Psychiatry 10/26/24 documented as of this encounter
--- OUTSIDE RECORDS SUMMARY | 2024-11-12 12:48 | XMS_ITS | Encounter Summary ---
Author Organization [employer] Address [address] 7t [place] [address] Care Team Providers Care Milk And Cream Grader Name Role Phone Katelynn Guzman MD Primary Care Provider [phone] Heena Howard PharmD Unavailable [phone] Jere Khoury MD Unavailable [phone] Susanna Garibay Unavailable Unavailable Encounter Details Date Type Department Care Team (Late st Contact Info) Description 06/02/2024 Orders Only [facility] [address] [place], [place] [phone] Katelynn Guzman MD [address] [place], [place] [phone] Social History Tobacco Use Types Packs/Day Years [...] Description 11/18/2024 1:00 PM EST Nurse Only [facility] MEDICINE [address] [place] [address] 11/24/2024 2:00 PM EST Medication Management [facility] MEDICINE [address] [place] [address] Heena Howard PharmD [address] [place] [address] 12/13/2024 11:00 AM EST Office Visit [address] [address] Katelynn Guzman MD [address] [place] [address] documented as of this encounter Goals Goal [...] documented as of this encounter Care Teams Milk And Cream Grader Relationship Specialty Start Date End Date Katelynn Guzman MD [address] [place] [address] PCP - General Family Medicine 10/26/13 Heena Howard, JosephD [address] [place] [address] Pharmacist Internal Medicine 09/26/22 Jere Khoury MD [address] [place] [address] Hematology and Oncology 09/20/24 Susanna Garibay [address] [place] [address] Ophthalmology 10/29/24 Ghislaine Ritter Psychiatry 10/26/24 documented as of this encounter
--- OUTSIDE RECORDS SUMMARY | 2024-11-12 12:48 | XMS_ITS | Encounter Summary ---
Author Organization [email or web address] Address [address] 7t [place] [address] Care Team Providers Care Wet Roaster Name Role Phone Katelynn Guzman MD Primary Care Provider [phone]- [phone] Heena Howard PharmD Unavailable Jere Khoury MD Unavailable [phone] Susanna Garibay Unavailable Unavailable Reason for Visit * Reason Comments Med Refill Encounter Details Date Type Department Care Team (Late st Contact Info) Description 06/23/2024 Refill [facility] MED & PEDS [address] [place] [address] Katelynn Guzman MD [address] [place] [address] Acquired hypothyroidism Social History Tobacco Use Types Packs/Day Years [...] Description 11/18/2024 1:00 PM EST Nurse Only [address] [address] 11/24/2024 2:00 PM EST Medication Management [address] [address] Heena Howard, PharmD [address] [place] [address] 12/13/2024 11:00 AM EST Office Visit [address] [address] Katelynn Guzman MD [address] [place] [address] documented as of this encounter Goals Goal Patient Goal Type Associated Problems Recent Progress Patient-Stated? Author Hemoglobin A1c < 7 Result Component 8.4(09/28/2024 2:38 PM EST) No Heena Howard, PharmD documented as of this encounter Visit Diagnoses Diagnosis Acquired hypothyroidism Unspecified hypothyroidism Recurrent major depressive episodes, moderate (CMS/HCC)- Primary [...] polyneuropathy, with long-term current use of insulin (CMS/HCC) Vitamin B deficiency Unspecified vitamin B deficiency documented in this encounter Additional Health Concerns Assessment Noted Time PHQ-9 Depression Total Score: 0 04/07/20 24 2:36 PM EDT documented as of this encounter Care Teams Wet Roaster Relationship Specialty Start Date End Date Katelynn Guzman MD [address] [place] [address] PCP - General Family Medicine 10/26/13 Heena Howard, JosephD [address] [place] [address] Pharmacist Internal Medicine 09/26/22 Jere Khoury MD [address] [place] [address] Hematology and Oncology 09/20/24 Susanna Garibay [address] [place] [address] Ophthalmology 10/29/24 Ghislaine Ritter Psychiatry 10/26/24 documented as of this encounter
--- OUTSIDE RECORDS SUMMARY | 2024-11-12 12:48 | XMS_ITS | Encounter Summary ---
Author Organization [employer] Address [address] 7t [place] [address] Care Team Providers Care Duplicating Machine Mechanic Name Role Phone Katelynn Guzman MD Primary Care Provider [phone] Heena Howard PharmD Unavailable Jere Khoury MD Unavailable [phone] Susanna Garibay Unavailable Unavailable Encounter Details Date Type Department Care Team (Latest Contact Info) Description 2024 Outside Procedure [facility] OPTOMETRY [address] [place] [address] Ermias, Jayshree, OD [address] [place] [address] Presbyopia (Primary Dx) Social History Tobacco Use Types [...] Progress Notes * Jayshree Monson OD - 2024 12:23 PM EST MH glasses were dispensed, 2 of 2. documented in this encounter Plan of Treatment Upcoming Encounters Date Type Department Care Team (Late st Contact Info) Description 11/18/2024 1:00 PM EST Nurse Only [facility] MEDICINE [address] [place] [address] 11/24/2024 2:00 PM EST Medication Management [facility] MEDICINE [address] [place] [phone] Heena Howard, PharmD [address] [place] [address] 12/13/2024 11:00 AM EST Office Visit [facility] MEDICINE [address] [place] [address] Katelynn Guzman MD [address] [place] [address] documented as of this encounter Goals Goal Patient Goal Type Associated Problems Recent Progress Patient-Stated? Author Hemoglobin A1c < 7 Result Component 8.4(09/28/2024 2:38 PM EST) No Heena Howard, Luly documented as of this encounter Visit Diagnoses Diagnosis Presbyopia- Primary Recurrent major depressive episodes, moderate (CMS/HCC)- [...] polyneuropathy, with long-term current use of insulin ([facility]) Vitamin B deficiency Unspecified vitamin B deficiency documented in this encounter Additional Health Concerns Assessment Noted Time PHQ-9 Depression Total Score: 9 07/28/20 24 4:10 PM EDT documented as of this encounter Care Teams Duplicating Machine Mechanic Relationship Specialty Start Date End Date Katelynn Guzman MD [address] [place] [address] PCP - General Family Medicine 10/26/13 Heena Howard, PharmD [address] [place] [address] Pharmacist Internal Medicine 09/26/22 Jere Khoury MD [address] [place] [address] Hematology and Oncology 09/20/24 Susanna Garibay [address] [place] [address] Ophthalmology 10/29/24 Ghislaine Stone Psychiatry 10/26/24 documented as of this encounter
--- OUTSIDE RECORDS SUMMARY | 2024-11-12 12:48 | XMS_ITS | Encounter Summary ---
Author Organization [employer] Address [address] [facility] [address] [place] [address] Care Team Providers Care Surgical Corsetier Name Role Phone Katelynn Guzman MD Primary Care Provider [phone]- [phone] Heena Howard PharmD Unavailable Jere Khoury MD Unavailable [phone] Susanna Garibay Unavailable Unavailable Reason for Visit * Reason Comments Med Refill Encounter Details Date Type Department Care Team (Late st Contact Info) Description 08/21/2023 Refill [facility] [address] [place], [place] [phone] Heena Howard, PharmD 230 [place], [place] [phone] Social History Tobacco Use Types Packs/Day Years Used Date Smoking Tobacco: Former Cigarettes Passive Smoke Exposure: Past Smokeless Tobacco: Never Alcohol Use Standard Drinks/Week Comments Never 0 (1 standard drink = 0.6 oz pur e alcohol) Depression Answer Date Recorded Patient Health Questionnaire-9 Score 5 11/25/2022 Housing Stability Answer Date Recorded What is your housing situation today? I have tavo caceres 07/28/[address] you li ve. Do you have problems with any of the following? None of the above 07/28/2023 Food Insecurity Answer Date Recorded Within the past 12 months, y ou worried that your food would run out before you got money to buy more: Never True 07/28/2023 Within the past 12 months,th e food you bought just didn't last and you didn't have enough money to get more: Never True Transportation Answer Date Recorded In the past 12 months, has l ack of transportation kept you from medical appts, meetings, work or from getting things needed for daily living? No 07/28/2023 Utilities Answer Date Recorded In the past 12 months, has t he electric, gas, oil or water company threatened to shut off services in your home? No 07/28/2023 Depression Answer Date Recorded Patient Health Questionnaire-2 Score 2 11/25/2022 Comments Unknown Sex and Gender Information Value [...] Description 11/18/2024 1:00 PM EST Nurse Only [address] [address] 11/24/2024 2:00 PM EST Medication Management [address] [address] Heena Howard PharmD [address] [place] [address] 12/13/2024 11:00 AM EST Office Visit [address] [address] Katelynn Guzman MD [address] [place] [address] documented as of this encounter Goals Goal Patient Goal Type Associated Problems Recent Progress Patient-Stated? Author Hemoglobin A1c < 7 Result Component 8.4(09/28/2024 2:38 PM EST) No Heena Howard, PharmD documented as of this encounter Visit Diagnoses Not on filedocumented in this encounter Additional Health Concerns Assessment Noted Time PHQ-9 Depression Total Score: 5 11/25/19 23 11:12 AM EST documented as of this encounter Care Teams Surgical Corsetier Relationship Specialty Start Date End Date Katelynn Guzman MD [address] [place] [address] PCP - General Family Medicine 10/26/13 Heena Howard PharmD 230 [place] [address] Pharmacist Internal Medicine 09/26/22 Jere Khoury MD [address] [place] [address] Hematology and Oncology 09/20/24 Susanna Garibay [address] [place] [address] Ophthalmology 10/29/24 Ghislaine Ritter Psychiatry 10/26/24 documented as of this encounter
--- OUTSIDE RECORDS SUMMARY | 2024-11-12 12:48 | XMS_ITS | Encounter Summary ---
Author Organization [employer] Address [address] [facility] [address] 7t [place] [address] Care Team Providers Care Flake Drier Name Role Phone Katelynn Guzman MD Primary Care Provider [phone]- [phone] Heena Howard PharmD Unavailable Jere Khoury MD Unavailable [phone] Susanna Garibay Unavailable Unavailable Reason for Visit * Reason Onset Date Comments FYI 06/29/2024 Nurse Triage 06/29/2024 Encounter Details Date Type Department Care Team (Late st Contact Info) Description 06/29/2024 Telephone [facility] MEDICINE 230 [place], [place] [phone] Katelynn Guzman MD 230 [place], [place] [phone] FYI; Nurse Triage Social History Tobacco Use Types Packs/Day Years [...] AM EDT documented as of this encounter Miscellaneous Notes * Telephone Encounter - Isabelle Leonard RN - 06/29/2024 12:42 PM EDT Called Yani from [facility] at [phone]. A nurse states that this is the first time seeing pt. Pt. Gets daily weight checks and last Friday06/22/24 pt weight was 207- and today 06/29/24 weightis 215. Bilateral Feet and legs are swollen mildly positive pedal pulses. Pt is breathing WNL, and lungs are clear. Today BP 120/60 pulse 81. I will call pt. For assessment. Called pt. [facility] [id number] Dg. Pt. Agrees that she has gained weight and she does have swelling in feet. Not painful and states that she left the hospital this way. Pt. States that since she left the hospital she has been eating a lot. She also states that her feet only get swollenin the afternoon and when she elevates them the swelling goes down. Pt. Denies any SOB or wheezing in lungs. Pt. Denies any redness, drainage, hot to touch or cold to touch on feet.I informed pt. That we would like to see her to assess her weight gain and pt. Declines visit stating that she feels fine and she also gains weight because she has a Thyroid problem. I advised pt. That if she gains 3 more pounds within the next 3 days that we want to see her regardless and if she develops SOB, we want to check her also. Pt agrees with plan but, I will send this note to PCP as FYI. Protocol Used: Leg Swelling and Edema (Adult) Protocol-Based Disposition: See in Office or Video Visit within 2 Weeks Video visit not offered Positive Triage Question: * Mild swelling of both ankles and chronic (unchanged) * All higher-acuity triage questions were negative * Telephone Encounter - Jesus Keith - 06/29/2024 12:31 PM EDT [facility] report in the past week the patient has gained 8 pounds and the patient haves feet and leg swelling Yani would like a call back to discuss more at [phone] documented in this encounter Plan of Treatment Upcoming Encounters Date Type Department Care Team (Late st Contact Info) Description 11/18/2024 1:00 PM EST Nurse Only [address] [address] 11/24/2024 2:00 PM EST Medication Management [address] [address] Heena Howard, PharmD [address] [place] [address] 12/13/2024 11:00 AM EST Office Visit [address] [address] Katelynn Guzman MD [address] [place] [address] documented as of this encounter Goals Goal [...] documented as of this encounter Care Teams Flake Drier Relationship Specialty Start Date End Date Katelynn Guzman MD 230 [place] [address] PCP - General Family Medicine 10/26/13 Heena Howard, PharmD 230 [place] [address] Pharmacist Internal Medicine 09/26/22 Jere Khoury MD [address] [place] [address] Hematology and Oncology 09/20/24 Susanna Garibay [address] [place] [address] Ophthalmology 10/29/24 Ghislaine Ritter Psychiatry 10/26/24 documented as of this encounter
--- OUTSIDE RECORDS SUMMARY | 2024-11-12 12:48 | XMS_ITS | Encounter Summary ---
Author Organization [employer] Address [address] 7[address] [place] [address] Care Team Providers Care Maintenance Parts Technician Name Role Phone Katelynn Guzman MD Primary Care Provider [phone] Heena Howard PharmD Unavailable Jere Khoury MD Unavailable [phone] Susanna Garibay Unavailable Unavailable Reason for Visit * Reason Comments Med Refill Encounter Details Date Type Department Care Team (Late st Contact Info) Description 09/15/[address] [facility] MED[facility]INE 230 [place], [place] [phone] Heena Howard, PharmD 230 [place], [place] [phone] Type 2 diabetes mellitus with diabetic neuropathy, with long-term current use of insulin ([facility]) Social History Tobacco Use Types Packs/Day Years [...] Description 11/18/2024 1:00 PM EST Nurse Only [address] [address] 11/24/2024 2:00 PM EST Medication Management [address] [address] Heena Howard, PharmD [address] [place] [address] 12/13/2024 11:00 AM EST Office Visit [address] [address] Katelynn Guzman MD [address] [place] [address] documented as of this encounter Goals Goal Patient Goal Type Associated Problems Recent Progress Patient-Stated? Author Hemoglobin A1c < 7 Result Component 8.4(09/28/2024 2:38 PM EST) No Heena Howard, JosephD documented as of this encounter Visit Diagnoses Diagnosis Type 2 diabetes mellitus with diabetic neuropathy, with long-term current use of insulin ([facility]) Recurrent major depressive episodes, moderate ([facility])- Primary Major depressive disorder, recurrent episode, moderate Dietary counseling Dietary surveillance and counseling Exercise counseling Class 3 severe obesity due to excess calories with serious comorbidity and body mass index (BMI) of 40.0 to 44.9 in adult ([facility]) Idiopathic thrombocytopenic purpura ([facility]/HCC) Immune thrombocytopenic purpura 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 Type 2 diabetes mellitus with diabetic polyneuropathy, with long-term current use of insulin ([facility]) Vitamin B deficiency Unspecified vitamin B deficiency documented in this encounter Additional Health Concerns Assessment Noted Time PHQ-9 Depression Total Score: 9 07/28/20 24 4:10 PM EDT documented as of this encounter Care Teams Maintenance Parts Technician Relationship Specialty Start Date End Date Katelynn Guzman MD 230 [place] [address] PCP - General Family Medicine 10/26/13 Heena Howard, PharmD 230 [place] [address] Pharmacist Internal Medicine 09/26/22 Jere Khoury MD [address] [place] [address] Hematology and Oncology 09/20/24 Susanna Garibay [address] [place] [address] Ophthalmology 10/29/24 Ghislaine Momineroa Psychiatry 10/26/24 documented as of this encounter
--- OUTSIDE RECORDS SUMMARY | 2024-11-12 12:48 | XMS_ITS | Encounter Summary ---
Author Organization [employer] Address [address] [facility] [address] 7[address] [place] [address] Care Team Providers Care International Accounting Manager Name Role Phone Katelynn Guzman MD Primary Care Provider [phone]- [phone] Heena Howard PharmD Unavailable Jere Khoury MD Unavailable [phone] Susanna Garibay Unavailable Unavailable Reason for Visit * Reason Comments Med Refill Encounter Details Date Type Department Care Team (Late st Contact Info) Description 11/09/2024 Refill [facility] [address] [place] [address] Katelynn Guzman MD [address] [place] [address] Pain; Chronic vaginitis; Acquired hypothyroidism; Abdominal pain, unspecified abdominal location Social History Tobacco Use Types Packs/Day Years [...] your housing situation today? I have tavo caceers 04/07/[address] you li [...] Description 11/18/2024 1:00 PM EST Nurse Only [address] [address] 11/24/2024 2:00 PM EST Medication Management [address] [address] Heena Howard, PharmD [address] [place] [address] 12/13/2024 11:00 AM EST Office Visit [address] [address] Katelynn Guzman MD [address] [place] [address] documented as of this encounter Goals Goal Patient Goal Type Associated Problems Recent Progress Patient-Stated? Author Hemoglobin A1c < 7 Result Component 8.4(09/28/2024 2:38 PM EST) No Heena Howard, PharmD documented as of this encounter Visit Diagnoses Diagnosis Pain Generalized pain Chronic vaginitis Unspecified vaginitis and vulvovaginitis Acquired hypothyroidism Unspecified hypothyroidism Abdominal pain, unspecified abdominal location Recurrent major depressive episodes, moderate ([facility])- Primary Major depressive disorder, recurrent episode, moderate Dietary counseling Dietary surveillance and counseling Exercise counseling Class 3 severe obesity due to excess calories with serious comorbidity and body mass index (BMI) of 40.0 to 44.9 in adult ([facility]) Idiopathic thrombocytopenic purpura ([facility]/HCC) Immune thrombocytopenic purpura 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 Type 2 diabetes mellitus with diabetic polyneuropathy, with long-term current use of insulin ([facility]) Vitamin B deficiency Unspecified vitamin B deficiency documented in this encounter Additional Health Concerns Assessment Noted Time PHQ-9 Depression Total Score: 9 07/28/20 24 4:10 PM EDT documented as of this encounter Care Teams International Accounting Manager Relationship Specialty Start Date End Date Katelynn Guzman MD [address] [place] [address] PCP - General Family Medicine 10/26/13 Heena Howard, PharmD [address] [place] [address] Pharmacist Internal Medicine 09/26/22 Jere Khoury MD [address] [place] [address] Hematology and Oncology 09/20/24 Susanna Garibay [address] [place] [address] Ophthalmology 10/29/24 Ghislaine Stone Psychiatry 10/26/24 documented as of this encounter
--- OUTSIDE RECORDS SUMMARY | 2024-11-12 12:48 | XMS_ITS | Encounter Summary ---
Author Organization [employer] Address [address] [facility] [address] 7[address] [place] [address] Care Team Providers Care Calender Roll Press Operator Name Role Phone Katelynn Guzman MD Primary Care Provider [phone]- [phone] Heena Howard PharmD Unavailable Jere Khoury MD Unavailable [phone] Susanna Garibay Unavailable Unavailable Reason for Visit * Reason Comments Med Refill Encounter Details Date Type Department Care Team (Late st Contact Info) Description 06/22/2024 Refill [facility] 230 [place], [place] [phone] Heena Howard, PharmD 230 [place], [place] [phone] Type 2 diabetes mellitus without complication, with long-term current use of insulin ([facility]) Social History Tobacco Use Types Packs/Day Years [...] encounter Miscellaneous Notes * Telephone Encounter - Heena Howard PharmD - 06/25/2024 12:10 PM EDT Refills previously sent documented in this encounter Plan of Treatment Upcoming Encounters Date Type Department Care Team (Late st Contact Info) Description 11/18/2024 1:00 PM EST Nurse Only [facility] MED[facility]INE [address] [place] [address] 11/24/2024 2:00 PM EST Medication Management [facility] [address] [place] [address] Heena Howard PharmD 230 [place] [address] 12/13/2024 11:00 AM EST Office Visit [address] [address] Katelynn Guzman MD [address] [place] [address] documented as of this encounter Goals Goal Patient Goal Type Associated Problems Recent Progress Patient-Stated? Author Hemoglobin A1c < 7 Result Component 8.4(09/28/2024 2:38 PM EST) No Heena Howard, JosephD documented as of this encounter Visit Diagnoses Diagnosis Type 2 diabetes mellitus without complication, with long-term current use of insulin ([facility]) Recurrent major depressive episodes, moderate ([facility])- Primary Major depressive disorder, recurrent episode, moderate Dietary counseling Dietary surveillance and counseling Exercise counseling Class 3 severe obesity due to excess calories with serious comorbidity and body mass index (BMI) of 40.0 to 44.9 in adult ([facility]) Idiopathic thrombocytopenic purpura ([facility]/HCC) Immune thrombocytopenic purpura 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 Type 2 diabetes mellitus with diabetic polyneuropathy, with long-term current use of insulin ([facility]) Vitamin B deficiency Unspecified vitamin B deficiency documented in this encounter Additional Health Concerns Assessment Noted Time PHQ-9 Depression Total Score: 0 04/07/20 24 2:36 PM EDT documented as of this encounter Care Teams Calender Roll Press Operator Relationship Specialty Start Date End Date Katelynn Guzman MD [address] [place] [address] PCP - General Family Medicine 10/26/13 Heena Howard, PharmD 230 [place] [address] Pharmacist Internal Medicine 09/26/22 Jere Khoury MD [address] [place] [address] Hematology and Oncology 09/20/24 Susanna Garibay [address] [place] [address] Ophthalmology 10/29/24 Ghislaine Stone Psychiatry 10/26/24 documented as of this encounter
--- OUTSIDE RECORDS SUMMARY | 2024-11-12 12:49 | XMS_ITS | Encounter Summary ---
Author Organization [employer] Address [address] [facility] [address] 7[address] [place] [address] Care Team Providers Care Curator Horticultural Museum Name Role Phone Katelynn Guzman MD Primary Care Provider [phone] Heena Howard PharmD Unavailable Jere Khoury MD Unavailable [phone] Susanna Garibay Unavailable Unavailable Encounter Details Date Type Department Care Team ([facility] Contact Info) Description 12/06/2022 Telephone [facility] MEDICINE 230 [place] [address] Katelynn Guzman MD 230 [place] [address] Social History Tobacco Use Types Packs/Day Years Used Date Smoking Tobacco: Former Cigarettes Depression Answer Date Recorded Patient Health Questionnaire-9 Score 5 11/25/2022 Depression Answer Date Recorded Patient Health Questionnaire-2 Score 2 11/25/2022 Comments Unknown Sex and Gender Information Value Date Recorded Sex Assigned at Female 08/12/2022 10:14 AM EDT Legal Sex Female 10:14 AM EDT Gender Identity Female 08/12/2022 10:14 AM EDT Sexual Orientation Straight 08/12/2022 10 :14 AM EDT COVID-19 Exposure Response Date Recorded In the last 10 days, have yo u been in contact with someone who was confirmed or suspected to have Coronavirus/COVID-19? No / Unsure 12/04/2022 12:58 PM EST documented as of this encounter Plan of Treatment Upcoming Encounters Date Type Department Care Team ([facility] Contact Info) Description 11/18/2024 1:00 PM EST Nurse Only [address] [address] 11/24/2024 2:00 PM EST Medication Management [address] [address] Heena Howard PharmD [address] [place] [address] 12/13/2024 11:00 AM EST Office Visit [address] [address] Katelynn Guzman MD [address] [place] [address] documented as of this encounter Goals Goal Patient Goal Type Associated Problems Recent Progress Patient-Stated? Author Hemoglobin A1c < 7 Result Component 8.4(09/28/2024 2:38 PM EST) No Heena Howard PharmD documented as of this encounter Visit Diagnoses Diagnosis Type 2 diabetes mellitus with diabetic neuropathy, with long-term current use of insulin ([facility]) Recurrent major depressive episodes, moderate ([facility]/HCC)- Primary [...] polyneuropathy, with long-term current use of insulin ([facility]) Vitamin B deficiency Unspecified vitamin B deficiency documented in this encounter Additional Health Concerns Assessment Noted Time PHQ-9 Depression Total Score: 5 11/25/19 23 11:12 AM EST documented as of this encounter Care Teams Curator Horticultural Museum Relationship Specialty Start Date End Date Katelynn Guzman MD [address] [place] [address] PCP - General Family Medicine 10/26/13 Heena Howard, Luly [address] [place] [address] Pharmacist Internal Medicine 09/26/22 Jere Khoury MD [address] [place] [address] Hematology and Oncology 09/20/24 Susanna Garibay [address] [place] [address] Ophthalmology 10/29/24 Ghislaine Stone Psychiatry 10/26/24 documented as of this encounter
--- OUTSIDE RECORDS SUMMARY | 2024-11-12 12:49 | XMS_ITS | Encounter Summary ---
Author Organization [employer] Address [address] 7[address] [place] [address] Care Team Providers Care Gas Cutter Name Role Phone Katelynn Guzman MD Primary Care Provider [phone] Heena Howard PharmD Unavailable Jere Khoury MD Unavailable [phone] Susanna Garibay Unavailable Unavailable Encounter Details Date Type Department Care Team (Late st Contact Info) Description 10/09/2023 Orders Only [facility] MEDICINE 230 [place] [address] Katelynn Guzman MD 230 [place], [place] [phone] Social History Tobacco Use Types Packs/Day Years [...] Description 11/18/2024 1:00 PM EST Nurse Only [address] [address] 11/24/2024 2:00 PM EST Medication Management [address] [address] Heena Howard, PharmD [address] [place] [address] 12/13/2024 11:00 AM EST Office Visit [address] [address] Katelynn Guzman MD [address] [place] [address] documented as of this encounter Goals Goal [...] documented as of this encounter Care Teams Gas Cutter Relationship Specialty Start Date End Date Katelynn Guzman MD [address] [place] [address] PCP - General Family Medicine 10/26/13 eHena Howard PharmD [address] [place], [place] [phone] Pharmacist Internal Medicine 09/26/22 Jere Khoury MD [address] [place] [address] Hematology and Oncology 09/20/24 Susanna Garibay [address] [place] [address] Ophthalmology 10/29/24 Ghislaine Ritter Psychiatry 10/26/24 documented as of this encounter
--- OUTSIDE RECORDS SUMMARY | 2024-11-12 12:49 | XMS_ITS | Encounter Summary ---
Author Organization [employer] Address [address] [facility] [address] 7t [place] [address] Care Team Providers Care Manager Of Disaster Recovery Name Role Phone Katelynn Guzman MD Primary Care Provider [phone]- [phone] Heena Howard PharmD Unavailable Jere Khoury MD Unavailable [phone] Susanna Garibay Unavailable Unavailable Reason for Visit * Reason Comments Med Refill Encounter Details Date Type Department Care Team (Late st Contact Info) Description 10/12/2024 Refill [facility] MED & PEDS [address] [place] [address] Katelynn Guzman MD [address] [place] [address] Pain; Chronic vaginitis Social History Tobacco Use Types Packs/Day Years [...] Description 11/18/2024 1:00 PM EST Nurse Only [address] [address] 11/24/2024 2:00 PM EST Medication Management [address] [address] Heena Howard, PharmD [address] [place] [address] 12/13/2024 11:00 AM EST Office Visit [address] [address] Katelynn Guzman MD [address] [place] [address] documented as of this encounter Goals Goal Patient Goal Type Associated Problems Recent Progress Patient-Stated? Author Hemoglobin A1c < 7 Result Component 8.4(09/28/2024 2:38 PM EST) No Heena Howard PharmD documented as of this encounter Visit Diagnoses Diagnosis Pain Generalized pain Chronic vaginitis Unspecified vaginitis and vulvovaginitis Recurrent major depressive episodes, moderate (CMS/HCC)- Primary [...] polyneuropathy, with long-term current use of insulin ([facility]) Vitamin B deficiency Unspecified vitamin B deficiency documented in this encounter Additional Health Concerns Assessment Noted Time PHQ-9 Depression Total Score: 9 07/28/20 24 4:10 PM EDT documented as of this encounter Care Teams Manager Of Disaster Recovery Relationship Specialty Start Date End Date Katelynn Guzman MD [address] [place] [address] PCP - General Family Medicine 10/26/13 Heena Howard, PharmD [address] [place] [address] Pharmacist Internal Medicine 09/26/22 Jere Khoury MD [address] [place] [address] Hematology and Oncology 09/20/24 Susanna Garibay [address] [place] [address] Ophthalmology 10/29/24 Ghislaine Ritter Psychiatry 10/26/24 documented as of this encounter
--- OUTSIDE RECORDS SUMMARY | 2024-11-12 12:49 | XMS_ITS | Encounter Summary ---
Author Organization [employer] Address [address] [facility] 7t [place] [address] Care Team Providers Care Outside Event Sales Specialist Name Role Phone Katelynn Guzman MD Primary Care Provider [phone]- [phone] Heena Howard PharmD Unavailable Jere Khoury MD Unavailable [phone] Susanna Garibay Unavailable Unavailable Encounter Details Date Type Department Care Team (Late st Contact Info) Description 10/18/2022 Telephone [facility] MEDICINE 230 [place] [address] Katelynn Guzman MD [address] [place] [address] Social History Tobacco Use Types Packs/Day Years Used Date Smoking Tobacco: Never Assessed Comments Unknown Sex and Gender Information Value [...] suspected to have Coronavirus/COVID-19? No / Unsure 10/18/2022 1:26 PM EST documented as of this encounter Miscellaneous Notes * Telephone Encounter - Concha Story RN - 11/11/2022 10:27 AM EST Nurse visit scheduled for 11/19 documented in this encounter Plan of Treatment Upcoming Encounters Date Type Department Care Team (Late st Contact Info) Description 11/18/2024 1:00 PM EST Nurse Only [address] [address] 11/24/2024 2:00 PM EST Medication Management [address] [address] Heena Howard PharmD [address] [place] [address] 12/13/2024 11:00 AM EST Office Visit [address] [address] Katelynn Guzman MD [address] [place] [address] documented as of this encounter Visit Diagnoses Not on filedocumented in this encounter Care Teams Outside Event Sales Specialist Relationship Specialty Start Date End Date Katelynn Guzman MD [address] [place] [address] PCP - General Family Medicine 10/26/13 Heena Howard, JosephD [address] [place] [address] Pharmacist Internal Medicine 09/26/22 Jere Khoury MD [address] [place] [address] Hematology and Oncology 09/20/24 Susanna Garibay [address] [place] [address] Ophthalmology 10/29/24 Ghislaine Stone Psychiatry 10/26/24 documented as of this encounter
--- OUTSIDE RECORDS SUMMARY | 2024-11-12 12:49 | XMS_ITS | Encounter Summary ---
Author Organization [employer] Address [address] 7t [place] [address] Care Team Providers Care [employer] Caretaker Name Role Phone Katelynn Guzman MD Primary Care Provider [phone]- [phone] Heena Howard PharmD Unavailable [phone]- [phone] Jere Khoury MD Unavailable [phone] Encounter Details Date Type Department Care Team (Latest Contact Info) Description 10/21/2024 Travel Social History Tobacco Use Types Packs/Day [...] Description 11/18/2024 1:00 PM EST Nurse Only [facility] MEDICINE [address] [place] [address] 11/24/2024 2:00 PM EST Medication Management [address] [address] Heena Howard PharmD [address] [place] [address] 12/13/2024 11:00 AM EST Office Visit [address] [address] Katelynn Guzman MD [address] [place] [address] documented as of this encounter Goals Goal [...] documented as of this encounter Care Teams [employer] Caretaker Relationship Specialty Start Date End Date Katelynn Guzman MD 230 [place] [address] PCP - General Family Medicine 10/26/13 Heena Howard PharmD 230 [place] [address] Pharmacist Internal Medicine 09/26/22 Jere Khoury MD [address] [place] [address] Hematology and Oncology 09/20/24 documented as of this encounter
--- OUTSIDE RECORDS SUMMARY | 2024-11-12 12:49 | XMS_ITS | Encounter Summary ---
Author Organization [employer] [facility] Address [address] [facility] 7t [place] [address] Care Team Providers Care Crabber Name Role Phone Katelynn Guzman MD Primary Care Provider [phone]- [phone] Heena Howard PharmD Unavailable Jere Khoury MD Unavailable [phone] Susanna Garibay Unavailable Unavailable Encounter Details Date Type Department Care Team ([facility] Contact Info) Description 06/26/2023 Abstract [facility] MEDICINE [address] [place] [address] Katelynn Guzman MD [address] [place] [address] [phone] Social History Tobacco Use Types Packs/Day Years [...] Encounters Date Type Department Care Team (Late Contact Info) Description 11/18/2024 1:00 PM EST Nurse Only [facility] MEDICINE [address] [place] [address] 11/24/2024 2:00 PM EST Medication Management [facility] [address] [place] [address] Heena Howard PharmD 230 [place] [address] 12/13/2024 11:00 AM EST Office Visit [facility] 230 [place] [address] Katelynn Guzman MD 230 [place] [address] documented as of this encounter Goals Goal [...] documented as of this encounter Care Teams Crabber Relationship Specialty Start Date End Date Katelynn Guzman MD 230 [place] [address] PCP - General Family Medicine 10/26/13 Heena Howard PharmD 230 [place] [address] Pharmacist Internal Medicine 09/26/22 Jere Khoury MD [address] [place] [address] Hematology and Oncology 09/20/24 Susanna Garibay [address] [place] [address] Ophthalmology 10/29/24 Ghislaine Stone Psychiatry 10/26/24 documented as of this encounter
--- OUTSIDE RECORDS SUMMARY | 2024-11-12 12:49 | XMS_ITS | Encounter Summary ---
Author Organization [employer] Address [address] 7t [place] [address] Care Team Providers Care Broiler Manager Name Role Phone Katelynn Guzman MD Primary Care Provider [phone]- [phone] Heena Howard PharmD Unavailable Jere Khoury MD Unavailable [phone] Susanna Garibay Unavailable Unavailable Reason for Visit * Reason Comments Med Refill Encounter Details Date Type Department Care Team (Late st Contact Info) Description 10/12/2024 Refill [facility] MEDICINE [address] [place], [place] [phone] Heena Howard, PharmD [address] [place], [place] [phone] Type 2 diabetes mellitus with diabetic neuropathy, with long-term current use of insulin ([facility]) Social History Tobacco Use Types Packs/Day [...] Description 11/18/2024 1:00 PM EST Nurse Only [address] [address] 11/24/2024 2:00 PM EST Medication Management [address] [address] Heena Howard, PharmD [address] [place] [address] 12/13/2024 11:00 AM EST Office Visit [address] [address] Katelynn Guzman MD [address] [place] [address] documented as of this encounter Goals Goal Patient Goal Type Associated Problems Recent Progress Patient-Stated? Author Hemoglobin A1c < 7 Result Component 8.4(09/28/2024 2:38 PM EST) No Heena Howard, JosephD documented as of this encounter Visit Diagnoses Diagnosis Type 2 diabetes mellitus with diabetic neuropathy, with long-term current use of insulin ([facility]) Recurrent major depressive episodes, moderate ([facility])- Primary Major depressive disorder, recurrent episode, moderate Dietary counseling Dietary surveillance and counseling Exercise counseling Class 3 severe obesity due to excess calories with serious comorbidity and body mass index (BMI) of 40.0 to 44.9 in adult ([facility]) Idiopathic thrombocytopenic purpura ([facility]/HCC) Immune thrombocytopenic purpura 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 Type 2 diabetes mellitus with diabetic polyneuropathy, with long-term current use of insulin ([facility]) Vitamin B deficiency Unspecified vitamin B deficiency documented in this encounter Additional Health Concerns Assessment Noted Time PHQ-9 Depression Total Score: 9 07/28/20 24 4:10 PM EDT documented as of this encounter Care Teams Broiler Manager Relationship Specialty Start Date End Date Katelynn Guzman MD [address] [place] [address] PCP - General Family Medicine 10/26/13 Heena Howard, PharmD [address] [place] [address] Pharmacist Internal Medicine 09/26/22 Jere Khoury MD [address] [place] [address] Hematology and Oncology 09/20/24 Susanna Garibay [address] [place] [address] Ophthalmology 10/29/24 Ghislaine Momineroa Psychiatry 10/26/24 documented as of this encounter
--- OUTSIDE RECORDS SUMMARY | 2024-11-12 12:49 | XMS_ITS | Encounter Summary ---
Author Organization [employer] Address [address] 7t [place] [address] Care Team Providers Care Public Safety Director Name Role Phone Katelynn Guzman MD Primary Care Provider [phone]- [phone] Heena Howard PharmD Unavailable [phone] Jere Khoury MD Unavailable Reason for Visit * Reason Onset Date Comments November Recall 10/15/2024 Encounter Details Date Type Department Care Team (Late st Contact Info) Description 10/15/2024 Telephone [facility] [address] [place], [place] [phone] [place], [place] November Recall Social History Tobacco Use Types Packs/Day Years [...] encounter Miscellaneous Notes * Telephone Encounter - Taryn Zavaleta MA - 10/15/2024 1:50 PM EST Pt agreed to schedule f/u appt on 12/13/24 @ 11 am. Reminder letter mailed. documented in this encounter Plan of Treatment Upcoming Encounters Date Type Department Care Team (Late st Contact Info) Description 11/18/2024 1:00 PM EST Nurse Only [facility] MEDICINE [address] [place] [address] 11/24/2024 2:00 PM EST Medication Management [facility] MEDICINE [address] [place] [address] Heena Howard, PharmD [address] [place] [address] 12/13/2024 11:00 AM EST Office Visit [facility] MEDICINE [address] [place] [address] Katelynn Guzman MD 230 [place] [address] documented as of this encounter Goals Goal [...] documented as of this encounter Care Teams Public Safety Director Relationship Specialty Start Date End Date Katelynn Guzman MD [address] [place] [address] PCP - General Family Medicine 10/26/13 Heena Howard, PharmD [address] [place] [address] Pharmacist Internal Medicine 09/26/22 Jere Khoury MD [address] [place] [address] Hematology and Oncology 09/20/24 documented as of this encounter
--- OUTSIDE RECORDS SUMMARY | 2024-11-12 12:49 | XMS_ITS | Encounter Summary ---
Author Organization [employer] Address [address] [facility] 7t [place] [address] Care Team Providers Care Casting Tester Name Role Phone Katelynn Guzman MD Primary Care Provider [phone]- [phone] Heena Howard PharmD Unavailable Jere Khoury MD Unavailable [phone] Reason for Visit * Reason Comments Med Refill Encounter Details Date Type Department Care Team (Late st Contact Info) Description 10/15/2024 Refill [facility] CHC MED & PEDS [address] [place] [address] Katelynn Guzman MD [address] [facility] [address] Chronic vaginitis Social History Tobacco Use Types [...] Description 11/18/2024 1:00 PM EST Nurse Only [address] [address] 11/24/2024 2:00 PM EST Medication Management [address] [address] Heena Howard, PharmD [address] [place] [address] 12/13/2024 11:00 AM EST Office Visit [address] [address] Katelynn Guzman MD [address] [place] [address] documented as of this encounter Goals Goal Patient Goal Type Associated Problems Recent Progress Patient-Stated? Author Hemoglobin A1c < 7 Result Component 8.4(09/28/2024 2:38 PM EST) No Heena Howard, Luly documented as of this encounter Visit Diagnoses Diagnosis Chronic vaginitis Unspecified vaginitis and vulvovaginitis Recurrent [...] polyneuropathy, with long-term current use of insulin (CMS/[facility]) Vitamin B deficiency Unspecified vitamin B deficiency documented in this encounter Additional Health Concerns Assessment Noted Time PHQ-9 Depression Total Score: 9 07/28/20 24 4:10 PM EDT documented as of this encounter Care Teams Casting Tester Relationship Specialty Start Date End Date Katelynn Guzman MD 230 [place] [address] PCP - General Family Medicine 10/26/13 Heena Howard, PharmD 230 [place] [address] Pharmacist Internal Medicine 09/26/22 Jere Khoury MD [address] [place] [address] Hematology and Oncology 09/20/24 documented as of this encounter
--- OUTSIDE RECORDS SUMMARY | 2024-11-12 12:49 | XMS_ITS | Encounter Summary ---
Author Organization [employer] Address [address] 7t [place] [address] Care Team Providers Care Belt Conveyor Drier Name Role Phone Katelynn Guzman MD Primary Care Provider [phone]- [phone] Heena Howard PharmD Unavailable [phone]- [phone] Jere Khoury MD Unavailable [phone] Encounter Details Date Type Department Care Team (Late st Contact Info) Description 10/21/2024 1:00 PM EST Nurse Only [facility] MEDICINE [address] [place] [address] Shakira Velez LPN B12 deficiency (Primary Dx) Social History Tobacco Use Types [...] as of this encounter Progress Notes * Shakira Velez LPN - 10/21/2024 1:00 PM EST SUBJECTIVE: Bhavna Fair is a 58 y.o. year old female who presents for No chief complaint on file. Preferred language for medical information: File Clerk Data Entry needed: No Standing Ordered verified: Yes, Bhavna Fair denies any difficulties with previous injection that was received. Allergies Allergen Reactions Ibuprofen Unknown and Rash Other reaction(s): Unknown OBJECTIVE: B-12 injection given in Left Deltoid, medication was tolerated well. ASSESSMENT: Vitamin B12 deficiency PLAN: Bhavna Fair will return for next injection on 11/18/2024 . [x] Advised to monitor injection site for any increased redness or swelling [x] Next appointment given Bhavna King Fair agrees with plan of care and verbalized understanding of instructions/education. Shakira Velez LPN documented in this encounter Plan of Treatment Upcoming Encounters Date Type Department Care Team (Late st Contact Info) Description 11/18/2024 1:00 PM EST Nurse Only [facility] MEDICINE [address] [place] [address] 11/24/2024 2:00 PM EST Medication Management [address] [address] Heena Howard, PharmD [address] [place] [address] 12/13/2024 11:00 AM EST Office Visit [address] [address] Katelynn Guzman MD [address] [place] [address] documented as of this encounter Goals Goal Patient Goal Type Associated Problems Recent Progress Patient-Stated? Author Hemoglobin A1c < 7 Result Component 8.4(09/28/2024 2:38 PM EST) No Heena Howard, Luly documented as of this encounter Visit Diagnoses Diagnosis B12 deficiency- Primary Recurrent major depressive episodes, moderate (CMS/HCC)- [...] polyneuropathy, with long-term current use of insulin ([facility]) Vitamin B deficiency Unspecified vitamin B deficiency documented in this encounter Administered Medications Inactive Administered Medications - up to 3 most recent administrations Medication Order MAR Action Action Date Dose Rate Site cyanocobalamin (Vitamin B-12) injection 1,000 mcg 1,000 mcg, Intramuscular, Once, On [place]y 10/21/24 at 1400, For 1 doseIndications:B12 deficiency Given 10/21/2024 2:00 PM EST 1,000 mcg Left Deltoid documented in this encounter Additional Health Concerns Assessment Noted Time PHQ-9 Depression Total Score: 9 07/28/20 24 4:10 PM EDT documented as of this encounter Care Teams Belt Conveyor Drier Relationship Specialty Start Date End Date Katelynn Guzman MD [address] [place] [address] PCP - General Family Medicine 10/26/13 Heena Howard, JosephD [address] [place] [address] Pharmacist Internal Medicine 09/26/22 Jere Khoury MD [address] [place] [address] Hematology and Oncology 09/20/24 documented as of this encounter
--- OUTSIDE RECORDS SUMMARY | 2024-11-12 12:49 | XMS_ITS | Encounter Summary ---
Author Organization [employer] Address [address] 7t [place] [address] Care Team Providers Care Vasc Tech Name Role Phone Katelynn Guzman MD Primary Care Provider [phone]- [phone] Heena Howard PharmD Unavailable Jere Khoury MD Unavailable [phone] Susanna Garibay Unavailable Unavailable Reason for Visit * Reason Comments Med Refill Encounter Details Date Type Department Care Team (Late st Contact Info) Description 07/24/2023 Refill [facility] MED & PEDS [address] [place] [address] Katelynn Guzman MD [address] [place] [address] Type 2 diabetes mellitus with diabetic neuropathy, with long-term current use of insulin (CMS/[facility]); Pain Social History Tobacco Use Types Packs/Day Years [...] Description 11/18/2024 1:00 PM EST Nurse Only [facility] MEDICINE [address] [place] [address] 11/24/2024 2:00 PM EST Medication Management [address] [address] Heena Howard, PharmD [address] [place] [address] 12/13/2024 11:00 AM EST Office Visit [facility] MEDICINE [address] [place] [address] Katelynn Guzman MD [address] [place] [address] documented as of this encounter Goals Goal Patient Goal Type Associated Problems Recent Progress Patient-Stated? Author Hemoglobin A1c < 7 Result Component 8.4(09/28/2024 2:38 PM EST) No Heena Howard, PharmD documented as of this encounter Visit Diagnoses Diagnosis Type 2 diabetes mellitus with diabetic neuropathy, with long-term current use of insulin (CMS/HCC) Pain Generalized pain Recurrent major depressive episodes, moderate (CMS/HCC)- Primary [...] documented as of this encounter Care Teams Vasc Tech Relationship Specialty Start Date End Date Katelynn Guzman MD [address] [place] [address] PCP - General Family Medicine 10/26/13 Heena Howard PharmD [address] [place] [address] Pharmacist Internal Medicine 09/26/22 Jere Khoury MD [address] [place] [address] Hematology and Oncology 09/20/24 Susanna Garibay [address] [place] [address] Ophthalmology 10/29/24 Ghislaine Ritter Psychiatry 10/26/24 documented as of this encounter
--- OUTSIDE RECORDS SUMMARY | 2024-11-12 12:49 | XMS_ITS | Encounter Summary ---
Author Organization [employer] Address [address] [facility] [address]t [place] [address] Care Team Providers Care Fixture Repairer Fabricator Name Role Phone Katelynn Guzman MD Primary Care Provider [phone]- [phone] Heena Howard PharmD Unavailable Jere Khoury MD Unavailable [phone] Susanna Garibay Unavailable Unavailable Reason for Visit * Reason Comments Med Refill Encounter Details Date Type Department Care Team (Late Contact Info) Description 06/30/2023 Refill [facility] MED & PEDS [address] [place] [address] Priscilla Long MD [address] [place] [address] Type 2 diabetes mellitus with diabetic neuropathy, with long-term current use of insulin ([facility]) Social History Tobacco Use Types Packs/Day [...] Description 11/18/2024 1:00 PM EST Nurse Only [address] [phone] 11/24/2024 2:00 PM EST Medication Management [address] [address] Heena Howard PharmD [address] [place] [address] 12/13/2024 11:00 AM EST Office Visit [address] [address] Katelynn Guzman MD [address] [place] [phone] documented as of this encounter Goals Goal Patient Goal Type Associated Problems Recent Progress Patient-Stated? Author Hemoglobin A1c < 7 Result Component 8.4(09/28/2024 2:38 PM EST) No Heena Howard, PharmD documented as of this encounter Visit Diagnoses Diagnosis Type 2 diabetes mellitus with diabetic neuropathy, with long-term current use of insulin ([facility]) Recurrent major depressive episodes, moderate ([facility])- Primary Major depressive disorder, recurrent episode, moderate Dietary counseling Dietary surveillance and counseling Exercise counseling Class 3 severe obesity due to excess calories with serious comorbidity and body mass index (BMI) of 40.0 to 44.9 in adult (CMS/[facility]) Idiopathic thrombocytopenic purpura (CMS/HCC) Immune thrombocytopenic purpura 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 Type 2 diabetes mellitus with diabetic polyneuropathy, with long-term current use of insulin ([facility]) Vitamin B deficiency Unspecified vitamin B deficiency documented in this encounter Additional Health Concerns Assessment Noted Time PHQ-9 Depression Total Score: 5 11/25/19 23 11:12 AM EST documented as of this encounter Care Teams Fixture Repairer Fabricator Relationship Specialty Start Date End Date Katelynn Guzman MD [address] [place] [address] [phone] PCP - General Family Medicine 10/26/13 Heena Howard, PharmD [address] [place] [address] Pharmacist Internal Medicine 09/26/22 Jere Khoury MD [address] [place] [address] Hematology and Oncology 09/20/24 Susanna Garibay [address] [place] [address] Ophthalmology 10/29/24 Ghislaine Stone Psychiatry 10/26/24 documented as of this encounter
--- OUTSIDE RECORDS SUMMARY | 2024-11-12 12:49 | XMS_ITS | Clinical Summary ---
Author Organization [facility] Address [address] [place] [address] Care Team Providers Care Bioprocess Development Engineer Name Role Phone Katelynn Guzman MD Primary Care Provider [phone] Allergies Active Allergy Reactions Criticality Noted Date Comments Ibuprofen 05/25/2018 Medications Medication Sig Dispensed Refills Start Date End Date Status acetaminophen (TYLENOL) 500 mg tablet Take 500 mg by mouth every 6 hours as needed. Active aspirin 81 mg chewable tablet Take 81 mg by mouth daily. Active atorvastatin (LIPITOR) 80 mg tablet Take 80 mg by mouth daily. Active betamethasone, augmented, (DIPROLENE-AF) 0.05 % cream Apply bid x10-14 days 09/18/2021 Active cetirizine (ZyrTEC) 10 mg capsule Take by mouth. Active CHOLECALCIFEROL, VITAMIN D3, ORAL Take by mouth. Acti ve clindamycin (CLEOCIN T) 1 % gel APPLY TOPICALLY TO NECK AND SCALP DAILY 07/25/2021 Active clonazePAM (KlonoPIN) 1 mg tablet Take 1 mg by mouth 2 times daily as needed. Active cyanocobalamin, vitamin B-12, 1,000 mcg/mL drops Inject as directed. Active cyclobenzaprine (FLEXERIL) 10 mg tablet Take 10 mg by mouth 3 times daily as needed. Active dicyclomine (BENTYL) 10 mg capsule Take 10 mg by mouth 4 times daily (before meals and nightly). Active doxepin (Zonalon) 5 % cream Apply 1 Squirt topically 2 times daily. 01/14/2018 Active doxycycline (MONODOX) 50 mg capsule TAKE 1 CAPSULE BY MOUTH TWICE A DAY 09/18/2021 Active DULoxetine (CYMBALTA) [address] capsule Take 30 mg by mouth daily. Active carbamide peroxide (Ear Drops, carbamide peroxide,) 6.5 % otic solution USE 5 DROPS INTO THE AFFECTED EAR(S) EVERY DAY DIRECTED 10/20/2018 Active pimecrolimus (Elidel) 1 % cream APPLY TO THE ARMS TWICE A DAY 08/22/2021 Active benzoyl peroxide (CERAVE ACNE TOP) Apply after bath bid 11/19/2019 Active fluconazole (DIFLUCAN) 150 mg tablet Take 150 mg by mouth once. Active hydroCHLOROthiazide (MICROZIDE) 12.5 mg capsule Take 1 Cap by mouth daily. 06/25/2019 Active insulin glargine U-300 (TOUJEO SoloStar U-300) 300 unit/mL (1.5 mL) CONCENTRATED injection pen Inject into the skin. Active INSULIN LISPRO SUBQ Inject into the skin. Active levothyroxine (SYNTHROID, LEVOTHROID) 175 mcg tablet Take 175 mcg by mouth daily. Active levothyroxine sodium (TIROSINT) 137 mcg capsule Take by mouth. Active lidocaine (LIDODERM) 5 % patch Place 1 Patch onto the skin every 24 hours. Apply for no more than 12 hours in any 24 hour period. Active lidocaine (LIDODERM) 5 % patch Place 1 Patch onto the skin every 24 hours. Apply for no more than 12 hours in any 24 hour period. Active lisinopriL (PRINIVIL,ZESTRIL) 2.5 mg tablet Take 2.5 mg by mouth daily. Active mupirocin (BACTROBAN) 2 % ointment APPLY TWICE A DAY 07/26/2021 Activ e omeprazole (PriLOSEC) [address] capsule Take 20 mg by mouth daily. Active pravastatin (PRAVACHOL) 10 mg tablet Take 10 mg by mouth daily. Active QUEtiapine (SEROquel) 25 mg tablet Take 25 mg by mouth 2 times daily. Active semaglutide (Ozempic) 1 mg/dose (2 mg/1.5 mL) injection pen Inject into the skin. Active semaglutide (Ozempic) 1 mg/dose (2 mg/1.5 mL) injection pen Inject into the skin. Active sertraline HCl (SERTRALINE ORAL) Take by mouth. Act cassandra valACYclovir (VALTREX) 1 gram tablet TAKE 1 TABLET BY MOUTH THREE TIMES A DAY FOR SEVEN DAYS 09/18/2021 Active zolpidem (AMBIEN) 10 mg tablet Take by mouth at bedtime as needed. Active Active Problems Problem Noted Date Diagnosed Date Diabetes mellitus with insulin therapy 4 Squamous cell carcinoma in s itu (SCCIS) of skin of right hand 03/15/2021 Carpal tunnel syndrome on left 03/14/2021 Overview (09/13/2024): Last Assessment & Plan: Patient has early carpal tunnel. We discussed the pathophysiology of this. Carpal tunnel education information in Burkinan was provided to the patient. Patient was given a night splint. She verbalized understanding of the plan. Fibroma 03/14/2021 Overview (09/13/2024): Last Assessment & Plan: Patient has an isolated fibroma of the palm. This can be seen in Dupuytren's but can also be episodic for patients who are diabetics. He does not require any treatment. Some patients will have intermittent discomfort with these. I reassured the patient no imminent treatment was indicated. If it were to grow in size, cause pain, change in any way, or she just wants us to reassess at any point I would be happy to see her back. She verbalized understanding of the plan. 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 Vitiligo 04/23/2017 Hypothyroid 09/22/2012 Obstructive sleep apnea 09/22/2012 Pure hypercholesterolemia 09/22/2012 Medical History Medical History Date Comments Diabetes mellitus with insul in therapy ([facility]) 09/22/2012 DX:Diabetes mellitus with in sulin therapy ([facility]) Hypothyroid 09/22/2012 DX:Hypothyroid Pure hypercholesterolemia 09/22/2012 DX:Pur e hypercholesterolemia Obstructive sleep apnea 09/22/2012 DX:Obstr uctive sleep apnea History of Helicobacter pylo ri infection 04/23/2017 DX:History of Helicobacter p ylori infection 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 DX:Androgeni c alopecia Anemia 04/23/2017 DX:Anemia Actinic keratoses 04/23/2017 DX:Actinic ker atoses Folliculitis 04/23/2017 DX:Folliculitis; COMMENT: Scalp, chronic History of squamous cell car cinoma of skin 04/23/2017 DX:History of squamous cell carcinoma of skin; COMMENT: Right arm, 2011, Efudex 5% cr rx Polyglandular autoimmune syn drome (CMS/HCC) 04/23/2017 DX:Polyglandular autoimmune syndrome (HCC) Migraine 04/23/2017 DX:Migraine History of positive PPD, carmen atment status unknown 04/23/2017 DX:History of positive PPD, treatment status unknown Vitiligo 04/23/2017 DX:Vitiligo Fibromyalgia 04/23/2017 DX:Fibromyalgia Depression 04/23/2017 DX:Depression Pernicious anemia 04/23/2017 DX:Pernicious anemia Social History Tobacco Use Types Packs/Day Years Used Date Smoking Tobacco: Former Smokeless Tobacco: Never Sex and Gender Information Value Date Recorded Sex Assigned at Not on file Gender Identity Not on file Sexual Orientation Not on file Job Start Date Occupation Industry Not on file Not on file Not on file Obstetrics History Plan of Treatment Upcoming Encounters Date Type Department Care Team (Late st Contact Info) Description 11/18/2024 1:00 PM EST Office Visit Orthopedic Surgery - [place] [id number] [id number] Jose Wilder, DPM [address] [address] Health Maintenance Due Date Last Done Comments Breast Cancer Screening 1965 COVID-19 Vaccine (#1) 1968 Pneumococcal Vaccine: Pediat rics (0 to 5 Years) and At-Risk Patients (6 to 64 Years) (1 of 2 - PCV) 1969 Diabetes: Annual Foot Exam 1973 Diabetes: Annual Retina Eye Exam 1973 DTaP,Tdap,and Td Vaccines (1 - Tdap) 1982 Zoster Vaccines (1 of 2) 1982 Cervical Cancer Screening: P ap Smear 1984 Diabetes: Annual GFR (Glomer ular Filtration Rate) 04/17/2019 04/17/2018 RSV Immunization Patients 60 + Years Old (1 - Risk 60-74 years 1-dose series) 2023 Influenza Vaccine (#1) 2024 Cholesterol Screening (Lipid Panel) 09/08/2024 Colorectal Cancer Screening: Colonoscopy 09/08/2024 Depression Screening 09/08/2024 HIV Screening 09/08/2024 Hepatitis C Screening 09/08/2024 Social Influencers of Health Screening 09/08/2024 Diabetes: Annual Urine Albumin-Creatinine Ratio (uACR) 09/14/2024 Diabetes: Blood Sugar Contro l Test (HGBA1C) 09/14/2024 HIB Vaccines Aged Out No longer eligi ble based on patient's age to complete this topic HPV Vaccines Aged Out No longer eligi ble based on patient's age to complete this topic Hepatitis A Vaccines Aged Out No long er eligible based on patient's age to complete this topic Hepatitis B Vaccines Aged Out No long er eligible based on patient's age to complete this topic IPV Vaccines Aged Out No longer eligi ble based on patient's age to complete this topic MMR Vaccines Aged Out No longer eligi ble based on patient's age to complete this topic Meningococcal ACWY Vaccine Aged Out N o longer eligible based on patient's age to complete this topic RSV Immunization Patients Un negrito 20 months Aged Out No longer eligible b ased on patient's age to complete this topic Varicella Vaccines Aged Out No longer eligible based on patient's age to complete this topic Procedures Procedure Name Priority Date/Time Associated Diagnosis Comments ANNUAL BMP BLOOD TEST Routine 04/17/2018 from Last 3 Months or Most Recently Relevant to Health Maintenance Results * Annual BMP Blood Test (04/17/2018) Annual BMP Blood Test Abstracted Historical Provider MD MICHAELA Ruiz from Last 3 Months or Most Recently Relevant to Health Maintenance Care Teams Bioprocess Development Engineer Relationship Specialty Start Date End Date MeganKatelynn wahl MD [address] [place] [address] [place] [id number] PCP - General Internal Medicine 09/19/20
--- OUTSIDE RECORDS SUMMARY | 2024-11-12 12:49 | XMS_ITS | Encounter Summary ---
Author Organization [employer] Address [address] [place] [address] Care Team Providers Care Ocean Freight Manager Name Role Phone Katelynn Guzman MD Primary Care Provider [phone] Heena Howard PharmD Unavailable [phone]- [phone] Jere Khoury MD Unavailable [phone] Reason for Visit * Reason Comments Med Refill Encounter Details Date Type Department Care Team (Late st Contact Info) Description 10/21/2024 Refill [facility] [address] [place] [address] Katelynn Guzman MD [address] [place], [place] [id number] Vitamin D deficiency; Hypertension, unspecified type Social History Tobacco Use Types Packs/Day Years [...] Description 11/18/2024 1:00 PM EST Nurse Only [address] [address] 11/24/2024 2:00 PM EST Medication Management [address] [address] Heena Howard, PharmD [address] [place] [id number] 12/13/2024 11:00 AM EST Office Visit [address] [address] Katelynn Guzman MD [address] [place] [id number] documented as of this encounter Goals Goal Patient Goal Type Associated Problems Recent Progress Patient-Stated? 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 Type 2 diabetes mellitus with diabetic polyneuropathy, with long-term current use of insulin ([facility]) Vitamin B deficiency Unspecified vitamin B deficiency documented in this encounter Additional Health Concerns Assessment Noted Time PHQ-9 Depression Total Score: 9 07/28/20 24 4:10 PM EDT documented as of this encounter Care Teams Ocean Freight Manager Relationship Specialty Start Date End Date Katelynn Guzman MD [address] [place] [address] PCP - General Family Medicine 10/26/13 Heena Howard, PharmD [address] [place] [address] Pharmacist Internal Medicine 09/26/22 Jere Khoury MD [address] [place] [phone] Hematology and Oncology 09/20/24 documented as of this encounter
--- OUTSIDE RECORDS SUMMARY | 2024-11-12 12:49 | XMS_ITS | Clinical Summary ---
Author Organization [employer] Address [address] [facility] [address] [place] [address] Care Team Providers Care [employer]or Name Role Phone Katelynn Guzman MD Primary Care Provider [phone] Heena Howard PharmD Unavailable Jere Khoury MD Unavailable [phone] Susanna Garibay Unavailable Unavailable Allergies Active Allergy Reactions Criticality Noted Date Comments Ibuprofen Unknown,Rash Low 09/28/2015 Other reaction(s): Unknown Medications doxycycline (Monodox) 50 MG capsule Take 1 capsule by mouth every 12 (twelve) hours. From dermatology Active finasteride (Proscar) 5 MG tablet Take 1 tablet by mouth at bed time. From dermatology Active omega-3 (Fish Oil) 1000 MG capsule as directed Active prednisoLONE acetate (Pred-Forte) 1 % ophthalmic suspension instill 1 drop by ophthalmic route 4 times every day into right eye 021 Active ferrous sulfate 325 (65 Fe) MG tablet Take 1 tablet by mouth in the morning and at bedtime. Active clindamycin (Clindagel) 1 % gelIndications:V itiligo apply by topical route 2 times every day a thin layer to the affected area(s) prone to hidradenitis suppurativa 30 g 1 023 Active hydrocortisone (Anusol-HC) 2.5 % rectal creamIndications :Acute hemorrhoid Apply small amount to rectum at bedtime prn hemorrhoids 15 g 2 023 Active Lancets 28G miscIndications: Type 2 diabetes mellitus without complication, with long-term current use of insulin ([facility]) Test blood sugar 4 times daily. 200 each 023 Active pen needle 32G x 4 mm miscIndications: Type 2 diabetes mellitus with diabetic neuropathy, with long-term current use of insulin ([facility]) Use as instructed for insulin use 4 times daily 100 each 024 2024 Active senna-docusate sodium (Senokot-S) 8.6-50 MG tabletIndication s:Dermatitis Take 1 tablet by mouth in the morning. 30 tablet 024 2024 Active atorvastatin (Lipitor) 80 MG tabletIndication s:Type 2 diabetes mellitus without complication, with long-term current use of insulin ([facility]) Take 1 tablet (80 mg) by mouth in the morning. Take 1 tablet by mouth once daily 90 tablet Active cetirizine (ZyrTEC) 10 MG tabletIndication s:Seasonal allergies TAKE 1 TABLET BY MOUTH DAILY 90 tablet Active aspirin 81 MG EC tablet Take 1 tablet (81 mg) by mouth Once per day. 90 tablet 024 Active glucagon (Baqsimi Two Pack) 3 MG/DOSE nasal powderIndication s:Type 2 diabetes mellitus without complication, with long-term current use of insulin ([facility]) For low blood sugar emergency, administer 3mg via one device into one nostril; if no response after 15 minutes, an additional 3mg from the other device may be administered. 2 each Active glucose blood (FreeStyle Precision Junior Test) test stripIndications :Type 2 diabetes mellitus without complication, with long-term current use of insulin ([facility]) Test blood sugar every 8 hours as directed 100 each 024 2024 Active clotrimazole (Lotrimin) 1 % creamIndications :Candidiasis Apply topically 2 times daily. Use on buttock area bid for 1 days, sinhala 28 g Active Continuous Glucose Sensor (FreeStyle Bob 2 Sensor) miscIndications: Type 2 diabetes mellitus with diabetic neuropathy, with long-term current use of insulin ([facility]) USE DIRECTED 1 SENSOR EVERY 14 DAYS 2 each Active predniSONE (Deltasone) 20 MG tablet Take 20 mg by mouth Once per day. Active tacrolimus (Protopic) 0.1 % ointment Apply to itchy areas on face, trunk and extermities twice a day as needed for flares Active Eye Itch Relief 0.035 % solutionIndicati ons:Dry eyes INSTILL 1 DROP BY OPHTHALMIC ROUTE 2 TIMES DAILY INTO BOTH EYES FOR ITCHI 5 mL 5 Active traMADol (Ultram) 50 MG tablet TOME FREEMAN TABLETA POR V A ORAL CADA OCHO HORAS CUANDO SEA NECESARIO FOR BREAKTHROUGH PAIN Active lidocaine (Lidoderm) 5 % patchIndications :Fibromyalgia APPLY 1 PATCH TOPICALLY DAILY (MAY WEAR UP TO 12 HOURS) 30 patch 3 Active cyclobenzaprine (Flexeril) 10 MG tabletIndication s:Pain TAKE 1 TABLET BY MOUTH AT BEDTIME NEEDED 30 tablet 3 Active Continuous Glucose Enamel Shader (FreeStyle Bob 3 Rake) deviceIndication s:Type 2 diabetes mellitus with diabetic neuropathy, with long-term current use of insulin ([facility]) 1 each Use as directed. Use to test blood sugar at least every 8 hours. 1 each Active Continuous Glucose Sensor (FreeStyle Bob 3 Sensor) miscIndications: Type 2 diabetes mellitus with diabetic neuropathy, with long-term current use of insulin ([facility]) 1 each Use as directed. Use to test blood sugar at least every 8 hours 2 each Active insulin glargine (Toujeo Max SoloStar) 300 UNIT/ML injectionIndicat ions:Type 2 diabetes mellitus with diabetic neuropathy, with long-term current use of insulin ([facility]) INJECT 110 UNITS SUBCUTANEOUSLY ONCE DAILY Active lisinopril 2.5 MG tabletIndication s:Primary hypertension TAKE 1 TABLET BY MOUTH EVERY DAY 90 tablet 1 Active omeprazole (PriLOSEC) [address] capsuleIndicatio ns:Gastroesophag eal reflux disease without esophagitis TAKE 1 CAPSULE BY MOUTH EVERY DAY 90 capsule 1 Active cholecalciferol (D3 Super Strength) 50 MCG (1999 UT) capsuleIndicatio ns:Vitamin D deficiency TAKE 1 CAPSULE BY MOUTH EVERY MORNING 28 capsule 11 025 Active hydroCHLOROthiaz kerry 12.5 MG tabletIndication s:Hypertension, unspecified type TAKE 1 TABLET BY MOUTH EVERY DAY 90 tablet 3 025 Active zolpidem (Ambien) 10 MG tabletIndication s:Recurrent major depressive episodes, moderate (CMS/HCC) Take by mouth if needed at bedtime for sleep. Active QUEtiapine (SEROquel) 300 MG tabletIndication s:Recurrent major depressive episodes, moderate (CMS/HCC) Take 300 mg by mouth at bedtime. Active DULoxetine (Cymbalta) [address] capsuleIndicatio ns:Recurrent major depressive episodes, moderate (CMS/HCC) Take 30 mg by mouth 2 times daily. Do not crush or chew. Active cyanocobalamin (Vitamin B-12) 1000 MCG/ML injectionIndicat ions:Vitamin B deficiency inject 1 milliliter (1000MCG) by intramuscular route every month 1 mL 11 025 Active clonazePAM (KlonoPIN) 1 MG tabletIndication s:Recurrent major depressive episodes, moderate (CMS/HCC) Take by mouth 2 times daily. Active insulin lispro (HumaLOG) 100 UNIT/ML injectionIndicat ions:Type 2 diabetes mellitus with diabetic neuropathy, with long-term current use of insulin ([facility]) INJECT SUBCUTANEOUSLY TWICE A DAY 34 UNITS BEFORE LUNCH AND 42 UNITS BEFORE DINNER (DO NOT USE IF SKIPPING MEAL) 15 mL 3 025 Active Tirzepatide (Mounjaro) 12.5 MG/0.5ML solution auto-injectorInd ications:Type 2 diabetes mellitus with diabetic polyneuropathy, with long-term current use of insulin ([facility]) INJECT 12.5 MG UNDER THE SKIN 1 (ONE) TIME PER WEEK. 2 mL 3 025 Active Acetaminophen Extra Strength 500 MG tabletIndication s:Pain TAKE 2 TABLETS BY MOUTH EVERY 12 HOURS NEEDED 112 tablet 025 Active clotrimazole (Lotrimin) 1 % vaginal creamIndications :Chronic vaginitis INSERT 1 APPLICATOR IN THE VAGINA EVERY NIGHT AT BEDTIME FOR 7 DAYS 45 g 025 Active levothyroxine (Synthroid) 150 MCG tabletIndication s:Acquired hypothyroidism Take 1 tablet (150 mcg) by mouth before breakfast. 30 tablet 2 025 2025 Active dicyclomine (Bentyl) 10 MG capsuleIndicatio ns:Abdominal pain, unspecified abdominal location TAKE 2 CAPSULES 3 TIMES A DAY NEEDED 90 capsule 3 Active diphenhydrAMINE (BENADryl) 25 MG tabletIndication s:Rash Take 1 tablet (25 mg) by mouth if needed at bedtime for itching for up to 15 days. 15 tablet 025 2024 Active albuterol 108 (90 Base) MCG/ACT inhaler inhale 2 puff by inhalation route every 4 - 6 hours as needed 016 2024 Discontinued(M ed list cleanup (will not trigger notification to Pharmacy)) clonazePAM (KlonoPIN) 1 MG tablet Take 1 tablet by mouth every 12 (twelve) hours. From psychiatry 2024 Discontinued(M ed list cleanup (will not trigger notification to Pharmacy)) polyvinyl alcohol (Liquifilm Tears) 1.4 % ophthalmic solution one drop in each eye for burning 020 2024 Discontinued(M ed list cleanup (will not trigger notification to Pharmacy)) zolpidem (Ambien) 10 MG tablet Take 1 tablet by mouth at bedtime. 2024 Discontinued(M ed list cleanup (will not trigger notification to Pharmacy)) DULoxetine (Cymbalta) [address] capsule TAKE 2 CAPSULES ONCE DAILY 2024 Discontinued(M ed list cleanup (will not trigger notification to Pharmacy)) QUEtiapine (SEROquel) 300 MG tablet TAKE 1 TABLET BY MOUTH AT BEDTIME 2024 Discontinued(M ed list cleanup (will not trigger notification to Pharmacy)) glucose-vitamin C 4-6 GM-MG oral gel Chew 4 tabs by mouth when blood glucose is < 70 mg. Armenian label. 022 2024 Discontinued(M ed list cleanup (will not trigger notification to Pharmacy)) betamethasone, augmented, (Diprolene) 0.05 % ointment APPLY TO TRUNK, ARMS TWICE A DAY NEEDED FOR FLARES. 023 2024 Discontinued(M ed list cleanup (will not trigger notification to Pharmacy)) clindamycin (Cleocin T) 1 % external solution APPLY TO GROIN TWICE DAILY MIXED WITH BENZOYL PEROXIDE GEL 023 2024 Discontinued(M ed list cleanup (will not trigger notification to Pharmacy)) ondansetron (Zofran) 4 MG tablet Take 1 tab orally every 8 hours prn nausea and vomiting 20 tablet 023 2024 Discontinued(M ed list cleanup (will not trigger notification to Pharmacy)) fluconazole (Diflucan) 150 MG tablet Take 1 tablet (150 mg) by mouth every 3 (three) days. Take 2nd dose in 3 days 2 tablet 023 2024 Discontinued(M ed list cleanup (will not trigger notification to Pharmacy)) hydroCHLOROthiaz kerry (HYDRODiuril) 12.5 MG tabletIndication s:Hypertension, unspecified type TAKE 1 TABLET BY MOUTH EVERY DAY 90 tablet 3 024 2024 Discontinued(R eorder (will not trigger notification to Pharmacy)) nystatin (Mycostatin) cream APPLY TOPICALLY TO BILATERAL GROIN DAILY 024 2024 Discontinued(M ed list cleanup (will not trigger notification to Pharmacy)) Alcohol Swabs (Alcohol Pads) 70 % pads Use as directed 100 each 024 2024 Discontinued(M ed list cleanup (will not trigger notification to Pharmacy)) cyanocobalamin (Vitamin B-12) 1000 MCG/ML injection inject 1 milliliter (1000MCG) by intramuscular route every month 1 mL 024 2024 Discontinued(R eorder (will not trigger notification to Pharmacy)) cholecalciferol (Vitamin D-3) 50 MCG (1999 UT) capsuleIndicatio ns:Vitamin D deficiency TAKE 1 CAPSULE BY MOUTH EVERY MORNING 90 capsule 1 024 2024 Discontinued Tirzepatide (Mounjaro) 12.5 MG/0.5ML solution pen-injectorIndi cations:Type 2 diabetes mellitus with diabetic polyneuropathy, with long-term current use of insulin ([facility]) Inject 12.5 mg under the skin 1 (one) time per week. 2 mL 3 024 2024 Discontinued levothyroxine (Synthroid) 150 MCG tabletIndication s:Acquired hypothyroidism Take 1 tablet (150 mcg) by mouth before breakfast. 30 tablet 2 024 2024 Discontinued(R eorder (will not trigger notification to Pharmacy)) dicyclomine (Bentyl) 10 MG capsuleIndicatio ns:Abdominal pain, unspecified abdominal location TAKE 2 CAPSULES 3 TIMES A DAY NEEDED 90 capsule 3 024 2024 Discontinued(R eorder (will not trigger notification to Pharmacy)) insulin lispro (HumaLOG) 100 UNIT/ML injectionIndicat ions:Type 2 diabetes mellitus with diabetic neuropathy, with long-term current use of insulin ([facility]) INJECT SUBCUTANEOUSLY TWICE A DAY 36 UNITS BEFORE LUNCH AND 40 UNITS BEFORE DINNER (DO NOT USE IF SKIPPING MEAL) 15 mL 3 024 2024 Discontinued Acetaminophen Extra Strength 500 MG tabletIndication s:Pain TAKE 2 TABLETS BY MOUTH EVERY 12 HOURS NEEDED 112 tablet 024 2024 Discontinued clotrimazole (Lotrimin) 1 % vaginal creamIndications :Chronic vaginitis INSERT 1 APPLICATOR IN THE VAGINA AT EVERY NIGHT AT BEDTIME FOR 7 DAYS 45 g 024 2024 Discontinued clotrimazole (Lotrimin) 1 % vaginal creamIndications :Chronic vaginitis INSERT 1 APPLICATOR IN THE VAGINA EVERY NIGHT AT BEDTIME FOR 7 DAYS 45 g 025 2024 Discontinued diphenhydrAMINE (BENADryl) 25 MG tabletIndication s:Rash Take 1 tablet (25 mg) by mouth if needed at bedtime for itching. 15 tablet 025 2024 Discontinued Hospital, Clinic, or Other Facility Administered Medication Ordered Dose Route Frequency Start Date End Date Status cyanocobalamin (Vitamin B-12) injection 1,000 mcgIndications:B12 deficiency 1000 mcg IM Once 10/21/2024 10/21/2024 Ended Active Problems Patient Care Coordination No te Formatting of this note migh t be different from the original. Enrolled in [facility] DM clinic with Heena Howard, PharmD, [facility] Problem Noted Date Diagnosed Date Rash 11/11/2024 Overview (11/11/2024): [facility]24 for itching rash. Unknown etiology. Called Coil Tester and got pt an appt for 11/15/24. Pt agrees with plan. Assessment & Plan (11/11/2024 3:19 PM EST): Rash of unknown etiology on forearms, neck and face. Extensive erythematous palques on arms, anterior neck and face with areas of auto excoriation. -called Coil Tester and pt has follow-up appt on 11/15/24. -encouraged staying away from scented creams or lotions. -prescribed diphenhydrAMINE (BENADryl) 25 MG On home O2 07/28/2024 Overview (07/28/2024): Discharged with home O2 from recent hospitalization. Pt not currently wearing it. Her O2 Sat is WNL. Pt still feels like she needs to continue using O2. -referred to Pulmonology 07/13/24 Cardiac risk counseling 07/20/2024 Overview (07/20/2024): Calculated 07/20/24 Borderline risk The 10-year ASCVD risk score (Esme SONI, et al., 2019) is: 6.6% Values used to calculate the score: Age: 58 years Sex: Female Is Non- : No Diabetic: Yes Tobacco smoker: No Systolic Blood Pressure: 128 mmHg Is BP treated: Yes HDL Cholesterol: 69 mg/dL Total Cholesterol: 177 mg/dL Lab Results Component Value Date LDLCHOL 56 12/07/2020 LDLCHOL 39 05/31/2020 LDLCHOL 39 05/31/2020 LDLCHOL 39 05/31/2020 LDLCHOL 39 05/31/2020 -Tobacco cessation: not applicable -Statin therapy:atorvastatin 80mg -Importance of moderate physical activity and nutrition interventions discussed. Candidiasis 05/12/2024 Overview (05/12/2024): Candidiasis of intergluteal cleft without evidence of superinfection. -Rx diflucan and clotrimazole 05/12/24 -keep area dry -return if symptoms worsen or do not improve in 2 weeks Lumbar spondylosis 04/10/2024 Overview (04/10/2024): XR/XR lumbar spine 2-3V 04/09/24IMPRESSION: No acute osseous lumbar spine abnormality. There is grade 1 anterolisthesis of L5 in relation to S1 in the setting of bilateral L5 pars defects. Mild lumbar spondylosis. Diverticular disease of colon 12/22/2023 Obesity due to excess calories 11/19/2023 0 11/19/2023 Overview (07/28/2024): Discussed weight, diet, exercise with patient in relation to health conditions. Used motivational interviewing to illicit change talk and established initial goals with patient. Assessment & Plan (07/28/2024 3:58 PM EDT): Discussed weight, diet, exercise with patient in relation to health conditions. Used motivational interviewing to illicit change talk and established initial goals with patient. Vitamin D deficiency 11/19/2023 11/19/2023 Family history of colon cancer 08/27/2023 1 10/27/2022 Vulvar lesion 06/21/2023 Assessment & Plan (06/21/2023 4:12 PM EDT): Findings appear to be chronic and per pt, no new symptoms since onset. -I tried calling her quality assurance intern today at but was not able to reach them. Per pt diagnosed w chronic vulvar skin disease, and pt is chronically on Doxycycline and skin creams on chart possibly for this. -From exam, it may be psoriasis or lichen planus, but unsure. -Requested ZINA Sam to try and obtain last dermatology consult to clarify diagnosis. -Advise pt to continue care w her specialist. Per [employer] has apt coming up this month. -Alarm signs and Sx discussed in case there are new Sx. Lower extremity edema 06/21/2023 Overview (07/23/2023): -advise stockings Assessment & Plan (07/23/2023 4:26 PM EDT): -advise stockings Assessment & Plan (06/21/2023 4:15 PM EDT): Reports worsening LE edema. States that she was told it was vascular in the past, and states that she was prescribed compression stockings in the past, which she doesn't use. -Advised to use her compression stockings which are at home. -Referred for TTE. -Referred to vascular. -Advised to f up w PCP in 4 wks to monitor. Abnormal mammogram of left breast 06/10/2023 Overview (11/19/2023): Breast biopsy 05/2023 Breast, left, biopsy: ??Benign breast tissue with fibroadenomatous change and coarse calcifications; negative for atypia or malignancy. Mammo 11/19/23 BIRADS 2: Stable benign findings left breast. Biopsy site shows no appreciable change in the far posterior 11:30 o'clock axis. No new or aggressive appearing microcalcifications. Recommend the patient resume routine annual screening mammography. ?? Assessment & Plan (12/22/2023 12:26 PM EDT): Breast biopsy 05/2023 Breast, left, biopsy: Benign breast tissue with fibroadenomatous change and coarse calcifications; negative for atypia or malignancy. Mammo 11/19/23 BIRADS 2: Stable benign findings left breast. Biopsy site shows no appreciable change in the far posterior 11:30 o'clock axis. No new or aggressive appearing microcalcifications. Recommend the patient resume routine annual screening mammography. Assessment & Plan (07/23/2023 4:21 PM EDT): Breast biopsy 05/2023 Breast, left, biopsy: ??Benign breast tissue with fibroadenomatous change and coarse calcifications; negative for atypia or malignancy. Other specified health status 04/16/2023 Overview (10/29/2024): -next physical exam due after 12/21/2024 -eye care facilitated by [facility], last seen by Dr. Susanna Limon 10/2024 -dental home is [facility] -health care proxy given and filed 07/28/24 Assessment & Plan (07/28/2024 3:46 PM EDT): -next physical exam due after 12/21/2024 -eye care facilitated by [facility], last seen by Dr. Susanna Limon 06/12/23 -dental home is [facility] -health care proxy given and filed 07/28/24 Assessment & Plan (04/09/2024 11:07 AM EDT): -next physical exam due after 12/21/2024 -eye care facilitated by [facility], last seen by Dr. Susanna Limon 06/12/23 -dental home is [facility] -health care proxy Assessment & Plan (12/22/2023 12:26 PM EDT): -next physical exam due after 12/21/2024 -eye care facilitated by [facility], last seen by Dr. Susanna Limon 06/12/23 -dental home is [facility] Assessment & Plan (04/16/2023 2:10 PM EDT): -next physical exam due after -eye care facilitated by [facility] last seen 12/30/2021. Referral placed 11/11/2022. -dental home is Irritable bowel syndrome without diarrhea 2022 Gastroesophageal reflux disease without esophagi tis 11/19/2022 Overview (11/05/2023): Followed by Dr. Robertson. Assessment & Plan (04/16/2023 2:18 PM EDT): Followed by Dr. Robertson. Microalbuminuria 09/17/2022 Overview (07/28/2024): Lab Results Component Value Date CREATININE 1.04 07/02/2024 EGFR 54 07/02/2024 MICROALBCREU 188.7 (H) 07/02/2024 MICROALBCREU 20.0 06/04/2023 LDLCHOLCAL 77 07/02/2024 -now at goal, continue samuel Assessment & Plan (07/28/2024 3:58 PM EDT): Lab Results Component Value Date CREATININE 1.04 07/02/2024 EGFR 54 07/02/2024 MICROALBCREU 188.7 (H) 07/02/2024 MICROALBCREU 20.0 06/04/2023 LDLCHOLCAL 77 07/02/2024 -now at goal, continue samuel Assessment & Plan (04/09/2024 11:06 AM EDT): Lab Results Component Value Date CREATININE 0.91 06/04/2023 EGFR >60 06/04/2023 MICROALBCREU 20.0 06/04/2023 LDLCHOLCAL 65 06/04/2023 -now at goal, continue samuel Generalized anxiety disorder 09/04/2022 Idiopathic thrombocytopenic purpura 09/04/2022 Overview (09/20/2024): -Normal blood counts Jun 2019 then CBC 05/2020 revealed pancytopenia with significant decline in WBC and platelets -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 Flu, meningoccous and pneumococcus -Followed by Dr. Khoury Seen 05/14/24. She was willing to go with Rituximab. -She completed her 4th dose on 07/22/20 and she tolerated it very well. -in May 2024 Rituximab therapy arranged for worsening low platelets. She will started treatment on 05/28/24 then 4 days later, presented to the hospital with a several day history of diffuse arthralgias, dysphagia, fevers at home. She states that she was okay on the 1st day after infusion, however since then symptoms have progressed to the point where she is unable to ambulate.She reports odynophagia. She presented to the emergency room on 06/07 at which time her workup was non revealing. U/A was equivocal, was treated with IV ceftriaxone. She continued to have persistent joint pains, was treated with multipledoses of IV analgesics. She then began to have fevers and tachycardia. Repeat blood work showed an elevation in white count to 20,000. No definitive foci of infection were found. Given her recent restarting of IV rituximab, concern was, it may be related to serum sickness like reaction. Given her persistent fevers, she was cultured, her antibiotic coverage was broadened to vancomycin and cefepime. Her case was discussed with the billing auditor, who recommended IV steroids and antibiotics. Most likely SIRS due to SSLR but significant risk of infection immunosuppression. Heme-Onc consulted. Started methylprednisolone IV 60 mg bid 06/08. Aseptic meningitis: CSF with 13->20 WBCs but PCR negative. Per ID stop vancomycin + cefepime. Also stop atovaquone that was started on 06/09 to cover PJP. per ID, 10d of doxycycline to cover tickborne illness; serologies BCx negative. Complete prednisone taper 6 more days. ID consulted; was treated with vancomycin + cefepime started 06/08. -Patient had f/u with hematology 06/18/24: Platelets at 82,000. Holding off on further rituximab administration and patient to continue on prednisone 20 mg once daily. Patient to f/u in 2 weeks -After discharge seen by hematology 06/20/24. Will hold off on further rituximab administration at this point. -She will continue on prednisone taper for now Hematology to taper the steroids, as the platelets improve further. -hematology note 09/19/[address] Khoury continue prednisone taper, now 2.5 daily monitor her platelet count carefully, on a weekly basis, hold off on further rituximab administration, return in 1 week for a follow-up visit. Assessment & Plan (04/09/2024 11:06 AM EDT): -Normal blood counts Jun 2019 then CBC 05/2020 revealed pancytopenia with significant decline in WBC and platelets. 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 -tolerated course of rituximab -Splenectomy recommended -S/p immunizations against h. Flu, meningoccous and pneumococcus. -Followed by Dr. Khoury Seen 03/05/24 monitor her platelet count carefully. Oncology will check it on a monthly basis. If it keeps dropping, goes to 50 or below, will arrange for a course of rituximab. She will return in 2 months for a follow-up visit. Assessment & Plan (07/23/2023 4:16 PM EDT): -Normal blood counts Jun 2019 then CBC 05/2020 revealed pancytopenia with significant decline in WBC and platelets. 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 -Completed 4th dose of rituximab -Splenectomy recommended -S/p immunizations against h. Flu, meningoccous and pneumococcus. -Followed by Dr. khoury Assessment & Plan (04/16/2023 1:59 PM EDT): -Normal blood counts Jun 2019 then CBC 05/2020 revealed pancytopenia with significant decline in WBC and platelets. 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 -Completed 4th dose of rituximab -Splenectomy recommended -S/p immunizations against h. Flu, meningoccous and pneumococcus. -Followed by Dr. khoury Assessment & Plan (09/17/2022 5:19 PM EST): -Normal blood counts Jun 2019 then CBC 05/2020 revealed pancytopenia with significant decline in WBC and platelets. 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 -Completed 4th dose of rituximab -Splenectomy recommended -S/p immunizations against h. Flu, meningoccous and pneumococcus. -Followed by Dr. khoury Recurrent major depressive episodes, moderate Overview (12/22/2023): -Followed by therapist and psychiatrist. No JOSE. Assessment & Plan (12/22/2023 12:21 PM EDT): Followed by therapist and psychiatrist. No JOSE. Assessment & Plan (07/23/2023 4:19 PM EDT): Followed by therapist and psychiatrist. No JOSE. Assessment & Plan (04/16/2023 2:00 PM EDT): Followed by therapist and psychiatrist. No JOSE. Assessment & Plan (09/17/2022 5:20 PM EST): Followed by therapist and psychiatrist. No JOSE. History of squamous cell carcinoma 03/15/2021 Overview (04/06/2024): Last saw dermatology March 2021. 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 She verbalized understanding of the plan. Assessment & Plan (12/22/2023 12:24 PM EDT): Last Assessment & Plan: Patient has an [...] back. She verbalized understanding of the plan. Assessment & Plan (07/23/2023 4:19 PM EDT): Last Assessment & Plan: Patient has an [...] back. She verbalized understanding of the plan. Presbyopia 02/15/2019 Dermatitis 04/23/2017 Overview (04/13/2024): -has hx of eczema on top of her psoriasis . Seen by [facility] 04/08/24, Prescribe clobetasol 0.05% lotion scalp bid and alclometasone 0.05% cream to face bid. Betamethasone 0.05% oint to trunk and extremities BID. 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 No suicidial or homacidial ideation. Assessment & Plan (04/09/2024 11:06 AM EDT): Followed by therapist and psychiatrist. No suicidial or homacidial ideation. 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 We discussed the pathophysiology of this. Carpal tunnel education information in Armenian was provided to the patient. Patient was given a night splint. She verbalized understanding of the plan. Assessment & Plan (07/23/2023 4:11 PM EDT): Patient has early carpal tunnel. We discussed the pathophysiology of this. Carpal tunnel education information in Armenian was provided to the patient. Patient was given a night splint. She verbalized understanding of the plan. Assessment & Plan (04/16/2023 1:58 PM EDT): Patient has early carpal tunnel. We discussed the pathophysiology of this. Carpal tunnel education information in Armenian was provided to the patient. Patient was given a night splint. She verbalized understanding of the plan. Hypertension 02/12/2013 Overview (07/28/2024): -Blood pressure is at goal -Continue lifestyle modifications -Continue current medications Assessment & Plan (07/28/2024 3:51 PM EDT): -Blood pressure is at goal -Continue lifestyle modifications -Continue current medications Assessment & Plan (04/09/2024 11:05 AM EDT): -Blood pressure is at goal -Continue lifestyle modifications -Continue current medications Assessment & Plan (12/22/2023 12:19 PM EDT): -Blood pressure is at goal -Continue lifestyle modifications -Continue current medications Assessment & Plan (10/11/2023 2:12 PM EST): Elevated BP today ,states did not take her BP meds this morning -advised to be compliant and to f w PCP at next apt in 3 weeks Assessment & Plan (07/23/2023 4:16 PM EDT): -Blood pressure is at goal -Continue lifestyle modifications -Continue current medications Assessment & Plan (04/16/2023 2:11 PM EDT): -Blood pressure is at goal -Continue lifestyle modifications -Continue current medications History of migraine headaches 02/12/2013 Vitiligo 02/12/2013 Hypothyroid 09/22/2012 Overview (04/09/2024): Lab Results Component Value Date TSH 1.56 06/04/2023 Assessment & Plan (04/09/2024 11:06 AM EDT): Lab Results Component Value Date TSH 1.56 06/04/2023 Obstructive sleep apnea 09/22/2012 Overview (11/19/2022): Not using CPAP. Assessment & Plan (07/23/2023 4:19 PM EDT): Not using CPAP. Assessment & Plan (04/16/2023 1:59 PM EDT): Not using CPAP. Assessment & Plan (09/17/2022 5:21 PM EST): Not using CPAP. I have advise dher not to use Ambien in the setting of uncontrolled MAAME. Mixed hyperlipidemia 05/18/2012 Overview (07/28/2024): Lab Results Component Value Date CHOL 177 07/02/2024 CHOL 131 06/04/2023 TRIG 159 (H) 07/02/2024 TRIG 66 06/04/2023 HDL 69 07/02/2024 HDL 53 06/04/2023 LDLCHOLCAL 77 07/02/2024 LDLCHOLCAL 65 06/04/2023 -continue lifestyle modification Assessment & Plan (07/28/2024 3:47 PM EDT): Lab Results Component Value Date CHOL 177 07/02/2024 CHOL 131 06/04/2023 TRIG 159 (H) 07/02/2024 TRIG 66 06/04/2023 HDL 69 07/02/2024 HDL 53 06/04/2023 LDLCHOLCAL 77 07/02/2024 LDLCHOLCAL 65 06/04/2023 -continue lifestyle modification Assessment & Plan (04/09/2024 11:07 AM EDT): Lab Results Component Value Date CHOL 131 06/04/2023 TRIG 66 06/04/2023 HDL 53 06/04/2023 LDLCHOLCAL 65 06/04/2023 -continue lifestyle modification Type 2 diabetes mellitus with diabetic polyneuro noa 03/25/2012 Overview (07/28/2024): Diabetes is followed with pharmacy [facility] by Dr. Heena Howard PharmD -Has a continuous glucose monitor. -Anemia and ITP may be causing falsely low A1C results (per [facility] literature search) Lab Results Component Value Date HGBA1C 8.5 (A) 07/28/2024 HGBA1C 8.2 (A) 05/26/2024 HGBA1C 9.0 (A) 01/20/2024 Lab Results Component Value Date CREATININE 1.04 07/02/2024 EGFR 54 07/02/2024 MICROALBCREU 188.7 (H) 07/02/2024 MICROALBCREU 20.0 06/04/2023 LDLCHOLCAL 77 07/02/2024 -Smauel/Arb: Lisinopril 2.5mg -Statin therapy: Atorvastatin 80mg -Diabetic eye exam: eye and lasix and HHC last seen 04/28/24 -Diabetic foot exam: Done 07/28/24 -Continue lifestyle modifications -Continue current medications -Increased Toujeo solostar to 104 units once daily -Increased Lispro dinner administration to 36 units -Increased Mounjaro to 12.5mg once weekly following completion of 10mg once weekly Assessment & Plan (07/28/2024 3:58 PM EDT): Diabetes is followed with pharmacy [facility] by Dr. Heena Howard PharmD -Has a continuous glucose monitor. -Anemia and ITP may be causing falsely low A1C results (per [facility] literature search) Lab Results Component Value Date HGBA1C 8.5 (A) 07/28/2024 HGBA1C 8.2 (A) 05/26/2024 HGBA1C 9.0 (A) 01/20/2024 Lab Results Component Value Date CREATININE 1.04 07/02/2024 EGFR 54 07/02/2024 MICROALBCREU 188.7 (H) 07/02/2024 MICROALBCREU 20.0 06/04/2023 LDLCHOLCAL 77 07/02/2024 -Samuel/Arb: Lisinopril 2.5mg -Statin therapy: Atorvastatin 80mg -Diabetic eye exam: eye and lasix and HHC last seen 04/28/24 -Diabetic foot exam: Done 07/28/24 -Continue lifestyle modifications -Continue current medications -Increased Toujeo solostar to 104 units once daily -Increased Lispro dinner administration to 36 units -Increased Mounjaro to 12.5mg once weekly following completion of 10mg once weekly Assessment & Plan (04/09/2024 11:05 AM EDT): Diabetes is followed with pharmacy [facility] by Dr. Heena Howard PharmD and Joshua iniguez RN. -Has a continuous glucose monitor. Lab Results Component Value Date HGBA1C 9.0 (A) 01/20/2024 HGBA1C 9.3 (A) 11/05/2023 HGBA1C 10.4 (A) 07/23/2023 Lab Results Component Value Date CREATININE 0.91 06/04/2023 EGFR >60 06/04/2023 MICROALBCREU 20.0 06/04/2023 LDLCHOLCAL 65 06/04/2023 -Samuel/Arb: Lisinopril 2.5mg -Statin therapy: Atorvastatin 80mg -Diabetic eye exam: eye and lasix and HHC last seen 06/12/23 -Diabetic foot exam: Done 04/16/2023. -Continue lifestyle modifications -Continue current medications -Continue Toujeo to 116 daily -Lispro increased to 58 units 02/10/24 -Mounjaro increased to 5mg weekly 02/10/24 Assessment & Plan (12/22/2023 12:10 PM EDT): Diabetes is not controlled but CGM shows MUCH BETTER. -Has a continuous glucose monitor. Lab Results Component Value Date HGBA1C 9.3 (A) 11/05/2023 HGBA1C 10.4 (A) 07/23/2023 HGBA1C 10.7 (A) 06/20/2023 -No results found for: POCA1C - Lab Results Component Value Date MICROALBUR 30.0 06/04/2023 CREATININE 0.91 06/04/2023 -Followed by [facility]. -Changes: none -Samuel/Arb: Lisinopril 2.5mg -Statin therapy: Atorvastatin 80mg -Diabetic eye exam: eye and lasix and HHC last seen 06/12/23 -Diabetic foot exam: Done 04/16/2023. -Continue lifestyle modifications -Continue current medications -Toujo was increased to 98 units on 04/02/23 -Humalog was increased to 34 units -Continue ozempic 2mg once a week. -slightly worse control due to Mounjaro being back ordered Assessment & Plan (11/05/2023 3:49 PM EST): Diabetes is not controlled but CGM shows MUCH BETTER. -Has a continuous glucose monitor. Lab Results Component Value Date HGBA1C 9.3 (A) 11/05/2023 HGBA1C 10.4 (A) 07/23/2023 HGBA1C 10.7 (A) 06/20/2023 -No results found for: POCA1C - Lab Results Component Value Date MICROALBUR 30.0 06/04/2023 CREATININE 0.91 06/04/2023 -Followed by [facility]. -Changes: none -Samuel/Arb: Lisinopril 2.5mg -Statin therapy: Atorvastatin 80mg -Diabetic eye exam: eye and lasix and C last seen 06/12/23 -Diabetic foot exam: Done 04/16/2023. -Continue lifestyle modifications -Continue current medications -Toujo was increased to 98 units on 04/02/23 -Humalog was increased to 34 units -Continue ozempic 2mg once a week. Assessment & Plan (06/21/2023 4:18 PM EDT): Pt w uncontrolled DM2. Pt is on high insulin doses. States she is compliant w Rx, but not compliant w diet. I discussed today w pharmacist, who is following pt for DM2 management, and was explained that pt has not tolerated - Metformin in the past and SGLT-2 were stopped because of chronic UTIs. -Urine dipstick done today is neg for ketones, pos for glucose, and neg for LE and nitrates. Current HbA1c is 10.7 <- 9.9. CBG 344. -Pt is currently on: insulin Glargine 100 units daily, Lispro 28 units w lunch, and 40 units w dinner (not using breakfast rapid insulin because she wakes up late and has 2 big meals during the day). -Pt on Mounjaro 5 mg weekly. -Pt's vulvar lesions are chronic w no apparent acute signs of infection, and high glucose is most likely due to dietary indiscretions. -Advise pt to try and be compliant, and improve her diet. 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 -Agreed to scrub wheel operator referral today, because of her difficult to control DM2 on high doses of insulin. -For now advise to increase her Lispro to 30 units at lunch, and 42 w dinner. -Pharmacist already increased Mounjaro dose today to 7.5 mg weekly and would increase this dose in the next 4 wk to try and achieve control -pt will f w up w diabetes management at pharmacy in 1 week and advised to f up w PCP in 4 weeks . Assessment & Plan (04/16/2023 2:15 PM EDT): Diabetes is controlled. -Has a continuous glucose monitor. Lab Results Component Value Date HGBA1C 9.9 (H) 01/29/2023 HGBA1C 8.4 (H) 09/09/2022 HGBA1C 9.6 (A) 06/06/2022 -No results found for: POCA1C - Lab Results Component Value Date MICROALBUR 1.0 12/07/2020 CREATININE 1.10 02/12/2022 -Followed by [facility]. -Changes: none -Samuel/Arb: Lisinopril 2.5mg -Statin therapy: Atorvastatin 80mg -Diabetic eye exam: eye and [facility] last seen 12/30/2021. Referral placed 11/11/2022. -Diabetic foot exam: Done 04/16/2023. -Continue lifestyle modifications -Continue current medications -Toujo was increased to 98 units on 04/02/23 -Humalog was increased to 34 units -Continue ozempic 2mg once a week. Assessment & Plan (11/25/2022 5:35 PM EST): - Lab Results Component Value Date HGBA1C 9.6 (A) 06/06/2022 -Tolerating Toujeo, not tolorating lispro. I will discuss with Dr. Maria Teresa Clinton. -No results found for: GLUF, MICROALBUR, LDLCALC, CREATININE -Diabetic eye exam: -Diabetic foot exam: - Continue lifestyle modifications - Continue current medications - Foot exam: Fibromyalgia 03/25/2012 Overview (04/10/2024): CT 04/09/24 CT/CT cervical spine wo IV con IMPRESSION: No acute osseous cervical spine abnormality. Mild cervical spondylosis. Vitamin B deficiency 03/25/2012 Overview (07/28/2024): Lab Results Component Value Date VITB12 521 06/04/2023 Resolved Problems Problem Noted Date Diagnosed Date Resolved Date Conjunctival hemorrhage of left eye 03/02/2024 04/06/2024 Assessment & Plan (03/02/2024 7:13 PM EDT): It seems to be a subconjunctival hemorrhage only but given underlying condition and recent procedure, she will be scheduled at [facility] FU with Dr Garibay at [facility] tomorrow 03/03 at 1:05pm, information given to patient and PC Use natural tears tid, avoid visine Cover eye with eye patch prn photophobia. Cellulitis 10/11/2023 04/06/2024 Assessment & Plan (10/11/2023 2:06 PM EST): 05/2023 chem wnl Erythema in buttocks both sides , no increase in skin temp, no drainage, has large fissure in gluteal cleft Seems likely fungal but w sourranding erythema possible cellulitis -px bactrim BID for 5 days, + clotrimazole cream BID x 21 days and fluconazole 150 mg today and repeat in 3 days -advised to keep area dry -has f Up w PCP in 3 weeks already scheduled apt -alarm signs and symptoms discussed today -improve DM control Bilateral swelling of feet 07/23/2023 1 Upper back pain 07/23/2023 04/06/2024 Overview (07/23/2023): -advise streching exercise Assessment & Plan (07/23/2023 4:27 PM EDT): -advise streching exercise Memory impairment 04/16/2023 04/06/2024 Overview (04/16/2023): Referral to neurology. (memory clinic for evaluation) Assessment & Plan (07/23/2023 4:21 PM EDT): Referral to neurology. (memory clinic for evaluation) Assessment & Plan (04/16/2023 2:34 PM EDT): Referral to neurology. (memory clinic for evaluation) Ear lesion 03/12/2023 04/06/2024 Overview (03/12/2023): Likely abrasion from Qtip. Given she has vitiligo we will follow up in 1 month to make sure it is resolved. Assessment & Plan (07/23/2023 4:20 PM EDT): Likely abrasion from Qtip. Given she has vitiligo we will follow up in 1 month to make sure it is resolved. Assessment & Plan (03/12/2023 11:45 AM EDT): Likely abrasion from Qtip. Given she has vitiligo we will follow up in 1 month to make sure it is resolved. Hemoptysis 12/31/2011 09/17/2022 Encounters Date Type Department Care Team Description 11/11/2024 3:00 PM EST Office Visit [facility] [address] [place] [address] Katelynn Guzman MD Rash (Primary Dx) 11/09/2024 Refill [facility] PED[facility] [address] [place], [place] [id number] Katelynn Guzman MD Pain; Chronic vaginitis; Acquired hypothyroidism; Abdominal pain, unspecified abdominal location 11/09/2024 Refill [facility] [address] [place] [address] Heena Howard, JosephD Type 2 diabetes mellitus with diabetic polyneuropathy, with long-term current use of insulin ([facility]) 2024 Outside Procedure [facility] [address] [place] [address] Boris Monsonn, OD Presbyopia (Primary Dx) 11/02/2024 3:00 PM EST Office Visit [facility] OPT[facility] [address] [place] [address] Boris Monsonn, OD Regular astigmatism of right eye (Primary Dx) 10/26/2024 Travel 10/21/2024 1:00 PM EST Nurse Only [facility] [address] [place] [phone] Shakira Velez LPN B12 deficiency (Primary Dx) 10/21/2024 Refill [facility] PEDS [address] [place] [address] Collette Hunt MD Hypertension, unspecified type 10/21/2024 Refill [facility] [address] [place] [phone] Katelynn Guzman MD Vitamin D deficiency; Hypertension, unspecified type 10/21/2024 Travel 10/15/2024 Telephone [facility] [address] [place] [address] Taryn Zavaleta, [place] November10/15/2024 Refill [facility] PED[facility] [address] [place] [address] Katelynn Guzman MD Chronic vaginitis 10/12/2024 Refill [facility] [address] [place] [address] Katelynn Guzman MD Primary hypertension; Gastroesophageal reflux disease without esophagitis 10/12/2024 Refill [facility] [address] [place] [phone] Heena Howard PharmD Type 2 diabetes mellitus with diabetic neuropathy, with long-term current use of insulin ([facility]) 10/12/2024 Refill [facility] [address] [place] [address] Katelynn Guzman MD Pain; Chronic vaginitis 10/08/2024 2:40 PM EST Office Visit [facility] [address] [place] [phone] Olga Galan MD Precordial pain (Primary Dx) 10/08/2024 Orders Only [facility] External Provider, [facility] 10/08/2024 Telephone [facility] [address] [place] [phone] Marianna Pham RN EMR/EKG triage; Report To [facility] (Report called to Brit Mack @ [facility] [phone]) 10/05/[address] [phone] Heena Howard PharmD 10/01/[address] [phone] Heena Howard, PharmD 09/28/2024 Travel 09/20/2024 1:00 PM EST Nurse Only [address] [phone] Shakira Velez LPN B12 deficiency (Primary Dx) 09/15/2024 Refill [facility] [address] [place] [address] Katelynn Guzman MD Pain; Chronic vaginitis 09/15/2024 Refill [facility] [address] [place] [phone] Heena Howard, PharmD Type 2 diabetes mellitus with diabetic neuropathy, with long-term current use of insulin ([facility]) 09/07/2024 Telephone [facility] [address] [place] [phone] Katelynn Guzman MD 09/06/2024 Telephone [facility] [address] [place] [phone] Heena Howard, PharmD 08/31/2024 11:00 AM EST Telemedicine [facility] [address] [place] [phone] Heena Howard, PharmD Type 2 diabetes mellitus with diabetic neuropathy, with long-term current use of insulin ([facility]) 08/27/2024 Telephone [facility] [address] [place] [phone] Ira Lopez, RN Durable Medical Equipment 08/25/2024 Refill [facility] [address] [place] [address] Katelynn Guzman MD Chronic vaginitis; Pain; Abdominal pain, unspecified abdominal location 08/23/2024 1:00 PM EST Nurse Only [facility] [address] [place] [phone] Shakira Velez LPN B12 deficiency 08/23/2024 Travel 08/23/2024 Refill [facility] [address] [place] [address] Katelynn Guzman MD Fibromyalgia 08/23/2024 Telephone [facility] [address] [place] [phone] Ira Lopez, RN Results 08/19/2024 Orders Only [facility] [address] [place] [phone] Zee Jaramillo ANP 08/12/2024 Telephone [facility] [address] [place] [phone] Katelynn Guzman MD Med Refill 08/12/2024 Refill [facility] [address] [place], [place] [phone] Katelynn Guzman MD Pain from Last 3 Months Immunizations Name Administration Dates Next Due Hep B, adult 07/13/2015,08/22/2014,01/22/1996 Hib (PRP-T) 06/22/2020 Influenza injectable quadriv alent IIV4 with preservative 07/13/2018,07/11/2017,07/12/2016 Influenza injectable quadriv alent preservative free 06/20/2023,07/18/2022,07/04/2021,07/27,09/02/2019,07/13/2015,07/01/2014 ,04/11/2014 Influenza, Split (incl. shelby fied surface antigen) 06/25/2013,07/13/2012 Influenza, seasonal, injecta ble, preservative free 06/22/2024 Meningococcal MCV4P ACYW-135 06/22/2020 Moderna Covid-19 Vaccine 12+ 02/14/2022, 09/20/2021,12/28/2020,11/15 Moderna Covid-19 Vaccine 6+ Bivalent 11/28/2022 Pfizer Covid-19 Vaccine 12+ 07/07/2024, 4,07/23/2023 Pneumococcal Conjugate PCV 20 04/16/2023 Pneumococcal Polysaccharide PPSV23 06/22/2020,,07/13/1997 RSV Bivalent 11/06/2023 TD (adult), 2 Lf tetanus tox oid, preservative free, adsorbed 03/14/1997 Tdap 04/16/2023,03/24/2013 Zoster, Recombinant 02/04/2022,12/05/2021 Family History Medical History Relation Name Comments Blindness Brother Colon cancer Brother Glaucoma Mother Relation Name Status Comments Brother Mother Social History Tobacco Use Types Packs/Day Years [...] Orientation Straight 08/12/2022 10 :14 AM EDT Last Filed Vital Signs Vital Sign Reading [...] Mass Index 43.06 11/11/2024 2:45 PM EST Plan of Treatment Upcoming Encounters Date Type Department Care Team (Late st Contact Info) Description 11/18/2024 1:00 PM EST Nurse Only [facility] [address] [place] [phone] 11/24/2024 2:00 PM EST Medication Management [facility] [address] [place] [phone] Heena Howard, PharmD [address] [place] [address] 12/13/2024 11:00 AM EST Office Visit [facility] [address] [place] [phone] Katelynn Guzman MD [address] [place] [address] Health Maintenance Due Date Last Done Comments CT Colonography 1963 Dental Oral Exam 1963 Dental Prophylaxis 1963 Dental X-Ray: Bitewings 1963 FIT DNA/Cologuard 1963 FIT 1963 FOBT 1963 Sigmoidoscopy 1963 Derm Melanoma Skin Check 05/04/1964 Diabetes: Hemoglobin A1C 12/27/2024 024, 07/28/2024, 05/26/2024, Additional history exists Eye Exam 01/22/2025 01/23/2024, 05/15, 11/08/2022, Additional history exists Depression Monitoring (PHQ-9) 01/26/2025 07/28/2024, 07/28/2024 SDOH Screening 04/07/2025 04/07/2024 Diabetes: Urine Protein Screening 07/02/2025 07/02/2024, 06/04/2023, 02/12/2022, Additional history exists Lipid Panel 07/02/2025 07/02/2024, 05/14, 02/12/2022, Additional history exists Alcohol/Substance Use Screening 07/28/2025 07/28/2024 Depression Screening 07/28/2025 07/28/2024, 07/28/20 24 Diabetes: Foot Exam 07/28/2025 07/28/2024, 07/28/2024, 07/28/2024, Additional history exists Tobacco Screening 11/11/2025 11/11/2024 Dental X-Ray: Full Mouth 02/06/2026 02/05/2023 Mammogram 06/18/2026 06/18/2024, 08/0 10/2023, 05/13/2024, Additional history exists Colonoscopy 11/10/2028 11/10/2023, 02/11/2016 Colorectal Cancer Screening 11/10/2028 DTaP/Tdap/Td Vaccines (3 - Td or Tdap) 04/16/2033 04/16/2023, 03/24/2013, 03/14/1997 Cervical Cancer Screening Discontinued Pap Smear Discontinued 10/13/2003 Hepatitis B Vaccines Completed 07/13/2015, 08/22/2014, 01/22/1996 HIB Vaccines Aged Out 06/22/2020 No longer eligi ble based on patient's age to complete this topic Meningococcal Vaccine Aged Out 06/22/2020 No lima jean pierre eligible based on patient's age to complete this topic HIV Screening Completed 12/07/2020, 05/14, 05/31/2020 Hepatitis C Screening Completed 12/07/2020, 021 Zoster Vaccines Completed 02/04/2022, 12/05/2021 Pneumococcal Vaccine: 50+ Years Completed 04/16/2023, 06/22/2020, 08/22/2014, Additional history exists RSV Patients and Patients Aged 60 years or older Completed 11/06/2023 Influenza Vaccine Completed 06/22/2024, , 07/18/2022, Additional history exists COVID-19 Vaccine Completed 07/07/2024, , 07/23/2023, Additional history exists HPV Vaccines Aged Out No longer eligi ble based on patient's age to complete this topic HPV/Cotest Discontinued Hepatitis A Vaccines Aged Out No long er eligible based on patient's age to complete this topic IPV Vaccines Aged Out No longer eligi ble based on patient's age to complete this topic RSV under 20 months Aged Out No longe r eligible based on patient's age to complete this topic Rotavirus Vaccines Aged Out No longer eligible based on patient's age to complete this topic Goals Goal Patient Goal Type Associated Problems Recent Progress Patient-Stated? Author Hemoglobin A1c < 7 Result Component 8.4(09/28/2024 2:38 PM EST) No Heena Howard, Luly Procedures Procedure Name Priority Date/Time Associated Diagnosis Comments CT CHEST WO CONTRAST Routine 10/27/2024 7:00 AM EST HIGH SENSITIVITY TROPONIN I Routine 10/08/2024 8:38 PM EST LIPASE Routine 10/08/2024 6:08 PM EST MAGNESIUM Routine 10/08/2024 6:08 PM EST COMPREHENSIVE METABOLIC PANEL Routine 10/08/2024 6:08 PM EST CBC WITH AUTO DIFFERENTIAL Routine 10/08/2024 6:08 PM EST HIGH SENSITIVITY TROPONIN I Routine 10/08/2024 6:07 PM EST XR CHEST 2 VIEWS Routine 10/08/2024 5:49 PM EST ECG 12-LEAD Routine 10/08/2024 5:09 PM EST Precordial pain POCT GLYCATED HEMOGLOBIN, TOTAL Routine 09/28/2024 2:38 PM EST Type 2 diabetes mellitus with diabetic neuropathy, with long-term current use of insulin (CMS/HCC) T4, FREE Routine 08/19/2024 1:52 PM EST TSH W/REFLEX TO FT4 Routine 08/19/2024 1 :52 PM EST Lower extremity edema CBC WITH AUTO DIFFERENTIAL Routine 08/19/2024 1:52 PM EST Idiopathic thrombocytopenic purpura (CMS/HCC) B TYPE NATRIURETIC PEPTIDE (BNP) Routine 08/19/2024 1:52 PM EST Bilateral leg edema ALBUMIN, RANDOM URINE W/CREATININE Routine 07/02/2024 9:10 AM EDT LIPID PANEL, STANDARD Routine 07/02/2024 8:57 AM EDT HM MAMMOGRAPHY Routine 06/18/2024 1:59 PM EDT HM COLONOSCOPY Routine 11/10/2023 DIABETES EYE EXAM Routine 06/12/2023 PANORAMIC RADIOGRAPHIC IMAGE Routine 02/05/2023 1:00 PM EDT HEPATITIS C ANTIBODY (EXTERNAL RESULTS ONLY) Routine 12/07/2020 12:18 PM EST HIV 1/2 ANTIGEN/ANTIBODY, FOURTH GENERATION W/RFL Routine 12/07/2020 11:38 AM EST PAP SMEAR Routine 10/13/2003 12:00 AM EST from Last 3 Months or Most Recently Relevant to Health Maintenance Results * CT Chest w/o Contrast (10/27/2024 7:00 AM EST) Anatomical Region Laterality Modality Body, Chest Computed Tomogra phy 10/27/2024 7:00 AM EST Narrative 10/27/2024 7:01 AM EST ? [facility] ?[address] ?[place] [address] ? CT Scan Report ? Signed ? Patient: Bhavna Enriquez ?MR# ?? : [id number] ? : 1965 ?Acct:[id number] ? Age/Sex: 58 / F ?ADM Date: 10/26/24 ? Loc: HO.CT ? Attending Dr: Cely Kothari NP ? Ordering Physician: Cely Kothari NP ?? Date of Service: 10/26/24 ?? Procedure(s): CT chest wo IV con ?? Accession Number(s): [id number] ? cc: Katelynn Guzman MD; Cely Kothari NP ? Report Number: ?? [id number]: Total DLP = ??208.00 mGy-cm ? CLINICAL HISTORY: Z87.01 - Personal history of pneumonia (recurrent) ? CT chest without contrast ? Comparison: None ? Findings: ?? The heart size is normal. Mild Atherosclerosis calcification of the ?? coronary artery. ?? The visualized thyroid and mediastinum are unremarkable. ? No consolidation or effusion. There is a calcified granuloma of the left ?? upper lobe. Resolution of the small bilateral pleural effusion and the ?? bibasilar opacity. ? The visualized upper abdomen is unremarkable. ?? The bones are intact. ? IMPRESSION: ?? 1. Unremarkable chest CT. ? This document has been electronically signed by: Kimberly Colin MD on ?? 10/27/2024 07:00:15 ? Dictated By: ?Kimberly Colin MD ? Signed By: ?<Electronically signed by Kimberly Colin MD in OV> ? 10/27/24 0701 ? DD/ 07 ? TD/TT: 10/27/24 07 ? Locker Room Manager: ? Procedure Note Donotuseinterpreter, Image - 10/27/[address] [address] [address] Scan Report Signed Patient: Bhavna Enriquez DMR# : [id number] : 1965Acct:[id number] Age/Sex: 58 / FADM Date: 10/26/24 Loc: HO.CT Attending Dr: Cely Kothari TIE PULLER Ordering Physician: Cely Kothari NP Date of Service: 10/26/24 Procedure(s): CT chest wo IV con Accession Number(s): [id number] cc: Katelynn Guzman MD; Cely Kothari NP Report Number: [id number]: Total DLP = 208.00 mGy-cm CLINICAL HISTORY: Z87.01 - Personal history of pneumonia (recurrent) CT chest without contrast Comparison: None Findings: The heart size is normal. Mild Atherosclerosis calcification of the coronary artery. The visualized thyroid and mediastinum are unremarkable. No consolidation or effusion. There is a calcified granuloma of the left upper lobe. Resolution of the small bilateral pleural effusion and the bibasilar opacity. The visualized upper abdomen is unremarkable. The bones are intact. IMPRESSION: 1. Unremarkable chest CT. This document has been electronically signed by: Kimberly Colin MD on 10/27/2024 07:00:15 Dictated By: Kimberly Colin MD Signed By: <Electronically signed by Kimberly Colin MD in OV> 10/27/24700 DD/ 9 TD/TT: 10/27/24699 Locker Room Manager: [facility] External Provider IMG CT PROCEDURES Edited Result - Final * High Sensitivity Troponin I (10/08/2024 8:38 PM EST) Only the most recent of2 resultswithin the time period is included. TROPONIN I HIGH SENSITIVITY 3.3 <3.5 - 17.0 ng/L [facility] Comment:The Jean high sens itivity Troponin-I results should beused in conjunction with other diagnostic information suchas ECG, clinical observations and information, and patientsymptoms to aid in the diagnosis of [place]. 10/08/2024 8:38 PM EST 10/08/2024 8:43 PM EST us Generic External Data Provider LAB BLOOD ORDERAB LES Final Result [facility] [address] [place] [address] [phone] * (ABNORMAL) CBC auto differential (10/08/2024 6:08 PM EST) Only the most recent of2 resultswithin the time period is included. White Blood Count 7.8 4.8 - 10.8 X10*3/uL [facility] Red Blood Count 4.77 4.20 - 5.50 X10*6/uL [facility] Hemoglobin 12.7 12.0 - 16.0 g/dl [facility] Hematocrit 39.6 37.0 - 47.0 % [facility] Mean Corpuscular Volume 83.0 80.0 - 98.0 fL [facility] Mean Corpuscular Hemoglobin 26.6(L) 27.0 - 33.0 pg [facility] Mean Corpuscular HGB Conc 32.1 31.0 - 35.0 g/dl [facility] Red Cell Distribution Width 14.0 11.0 - 16.0 % [facility] Platelet Count 154(L) 160 - 400 X10*3/uL [facility] Mean Platelet Volume 12.9(H) 9.4 - 12.3 fL [facility] Neutrophils Percent Auto 78.2(H) 45 - 73 % [facility] Imm Gran Pct Auto 0.3 0.0 - 0.4 % [facility] Lymphocytes Percent Auto 11.2(L) 20 - 40 % [facility] Monocytes Percent Auto 7.7 2 - 11 % [facility] Eosinophils Percent Auto 1.8 0 - 4 % [facility] Basophils Percent Auto 0.8 0 - 2 % [facility] NRBC Pct Auto 0.0 0.0 - 0.2 /100WBC [facility] Neutrophils Absolute Auto 6.1 2.0 - 8.3 x10*3/uL [facility] Imm Gran Abs Auto 0.02 0.00 - 0.03 X10*3/uL [facility] Lymphocytes Absolute Auto 0.9(L) 1.2 - 4.9 X10*3/uL [facility] Monocytes Absolute Auto 0.6 0.1 - 1.2 X10*3/uL [facility] Eosinophils Absolute Auto 0.1 0.0 - 0.4 X10*3/uL [facility] Basophils Absolute Auto 0.1 0.0 - 0.2 X10*3/uL [facility] NRBC Abs Auto 0.000 0.0 - 0.012 X10*3/uL [facility] 10/08/2024 6:08 PM EST 10/08/2024 6:12 PM EST us Generic External Data Provider LAB BLOOD ORDERAB LES Final Result Performing Organization Address [facility]/ZIP Co de Phone Number [facility] [address] [place] [phone] * (ABNORMAL) Magnesium (10/08/2024 6:08 PM EST) Magnesium 1.5(L) 1.6 - 2.6 mg/dL [facility] 10/08/2024 6:08 PM EST 10/08/2024 6:12 PM EST us Generic External Data Provider LAB BLOOD ORDERAB LES Final Result Performing Organization Address [facility]/ZIP Co de Phone Number [facility] [address] [place] [address] [phone] * Lipase (10/08/2024 6:08 PM EST) Lipase 45 8 - 78 U/L [facility] 10/08/2024 6:08 PM EST 10/08/2024 6:12 PM EST us Generic External Data Provider LAB BLOOD ORDERAB LES Final Result [facility] [address] [place], [place] [phone] * (ABNORMAL) Comprehensive Metabolic Panel (10/08/2024 6:08 PM EST) Sodium 141 135 - 145 mmol/L [facility] Potassium 4.4 3.3 - 5.1 mmol/L [facility] Chloride 100 96 - 108 mmol/L [facility] Carbon Dioxide 30(H) 22 - 29 mmol/L [facility] Anion Gap 15 12 - 20 [facility] Urea Nitrogen (BUN) 17(H) 9 - 16 mg/dL [facility] Creatinine, Serum 1.08 0.5 - 1.4 mg/dL [facility] Creatinine Clr Calc Pharmacy 62.5 [facility] Comment:Provided height and weight: 160.02 cm,100.2 kg.eGFR (calculated from the MDRD study equation) and eCrCl(calculated from the Cockcroft-Gault equation) are based ondifferent parameters and may not yield comparable results.If eCrCl result is absurd, please check patient'sheight/weight. Estimated Glomerular Filt Rate 52 [facility] Comment:Chronic Kidney Disea se: Estimated GFR < 60 mL/min/1.22n4Ictpvw Kidney Disease: Estimated GFR < 15 mL/min/1.73m2 Glucose 124(H) 60 - 115 mg/dL [facility] Calcium 9.7 8.4 - 10.2 mg/dL [facility] Bilirubin, Total 0.3 0.0 - 1.0 mg/dL [facility] Aspartate Amino Transferase 34(H) 5 - 31 U/L [facility] Alanine Aminotransferase 35(H) 0 - 31 U/L [facility] Total Protein 6.8 6.5 - 8.0 g/dL [facility] Albumin Level 3.8 3.5 - 5.0 g/dL [facility] Alkaline Phosphatase 70 39 - 117 U/L [facility] 10/08/2024 6:08 PM EST 10/08/2024 6:12 PM EST us Generic External Data Provider LAB BLOOD ORDERAB LES Final Result [facility] [address] [place] [address] [phone] * XR Chest 2 Views (10/08/2024 5:49 PM EST) Anatomical Region Laterality Modality Chest Radiographic Thea ging 10/08/2024 5:49 PM EST Narrative 10/08/2024 5:50 PM EST ? [facility] ?[address] ?[place] [address] ?XRay Report ? Signed ? Patient: Bhavna Enriquez ?MR# ?? : [id number] ? : 1965 ?Acct:[id number] ? Age/Sex: 58 / F ?ADM Date: 10/08/24 ? Loc: HO.ED ? Attending Dr: ? Ordering Physician: Jacinta Phipps ?? Date of Service: 10/08/24 ?? Procedure(s): XR chest 2V ?? Accession Number(s): [id number] ? cc: Jacinta Phipps; [facility] ? CLINICAL HISTORY: pain ? 2 view chest x-ray ? Comparison: None ? Findings: ?? The lungs are clear. ?? Heart size is normal. ?? No acute fracture. ? IMPRESSION: ?? 1. No acute findings. ? This document has been electronically signed by: Daniel Dalal MD on ?? 10/08/2024 17:49:06 ? Dictated By: ?Daniel Dalal MD ? Signed By: ?<Electronically signed by Daniel Dalal MD in OV> ?10/08/ 1750 ? DD/DT: 10/08/ 1749 ? TD/TT: 10/08/24 1749 ? Locker Room Manager: ? Procedure Note Donotuseinterpreter, Image - 10/08/[address] [address] XRay Report Signed Patient: Bhavna Enriquez DMR# : [id number] : 1965Acct:[id number] Age/Sex: 58 / FADM Date: 10/08/24 Loc: HO.ED Attending Dr: Ordering Physician: Jacinta Phipps Date of Service: 10/08/24 Procedure(s): XR chest 2V Accession Number(s): [id number] cc: Jacinta Phipps; [facility] CLINICAL HISTORY: pain 2 view chest x-ray Comparison: None Findings: The lungs are clear. Heart size is normal. No acute fracture. IMPRESSION: 1. No acute findings. This document has been electronically signed by: Daniel Dalal MD on 10/08/2024 17:49:06 Dictated By: Daniel Dalal MD Signed By: <Electronically signed by Daniel Dalal MD in OV> 10/08/24 1750 DD/ 174 TD/TT: 10/08/24 174 Locker Room Manager: [facility] External Provider IMG XR PROCEDURES Final Result * ECG 12 lead (10/08/2024 5:09 PM EST) Narrative Olga Galan MD - 10/08/2024 5:09 PM EST Sinus rhythm at 76 bpm with lateral TWI, QTC 490 ms. Olga Galan MD ECG ORDERABLES Final Result * (ABNORMAL) POCT A1C (09/28/2024 2:38 PM EST) Hemoglobin A1C 8.4(A) 4.0 - 6.0 % QC Media Lot # [id number] Lot# Expiration Date [id number] Blood 09/28/2024 2:38 PM EST Katelynn Guzman MD POINT OF CARE TEST ENTER/E DIT ORDERABLES Final Result * (ABNORMAL) TSH W/Reflex to FT4 (08/19/2024 1:52 PM EST) TSH reflex Free T4 9.91(H) 0.32 - 4.0 uIU/mL [facility] Blood Venous blood specimen / Unknown 08/19/2024 1:52 PM EST 08/19/2024 1:52 PM EST Zee Jaramillo ANP LAB BLOOD ORDERABLES Final Resul t Performing Organization Address [facility] de Phone Number [facility] [address] [place] [phone] * T4, Free (08/19/2024 1:52 PM EST) Free T4 (Free Thyroxine) 1.11 0.71 - 1.85 ng/dL [facility] 08/19/2024 1:52 PM EST 08/19/2024 1:52 PM EST Zee Jaramillo ANP LAB BLOOD ORDERABLES Final Resul t Performing Organization Address [facility] de Phone Number [facility] [address] [place] [phone] * B Type Natriuretic Peptide (BNP) (08/19/2024 1:52 PM EST) B Type Natriuretic Peptide 11 <100 pg/mL [facility] Comment:For those patients w ho are being treated with Natrecor(nesiritide, recombinant BNP), BNP testing should beperformed at least two hours post treatment in order toensure that only endogenous levels of BNP are detected. Blood Venous blood specimen / Unknown 08/19/2024 1:52 PM EST 08/19/2024 1:52 PM EST us Zee Jaramillo ANP LAB BLOOD ORDERABLES Final Resul t Performing Organization Address City/[facility] Co de Phone Number [facility] [address] [place] [address] [phone] * (ABNORMAL) Albumin, Random Urine W/Creatinine (07/02/2024 9:10 AM EDT) Creatinine, Urine 150.96 mg/dL [facility] Microalbumin Urine 285.0 mg/L [facility] Microalbum Creatinine Ratio Ur 188.7(H) <30 ug/mg cr [facility] Comment:Albumin/Creatinine R atio Reference Ranges: Normal: < 30 ug/mg creatinine Microalbuminuria: 30 - 300 ug/mg creatinineClinical Albuminuria: > 300 ug/mg creatinine 07/02/2024 9:10 AM EDT 07/02/2024 11:42 AM EDT Katelynn Guzman MD LAB URINE ORDERABLES Final Result [facility] [address] [place] [phone] * (ABNORMAL) Lipid Panel, Standard (07/02/2024 8:57 AM EDT) Triglycerides 159(H) <150 mg/dL [facility] Comment:Desirable Triglyceri de: less than 150 mg/dLBorderline High Triglyceride 150-199 mg/dLHigh Triglyceride: 200-499 mg/dLVery High Triglyceride: greater than or equal to 5OO mg/dL Cholesterol 177 <200 mg/dL [facility] Comment:Desirable Cholestero l: less than 200 mg/dLBorderline High Cholesterol: 200-239 mg/dLHigh Cholesterol: greater than 239 mg/dL LDL Cholesterol Calculated 77 <100 mg/dL [facility] Comment:Desirable LDL: less than 100 mg/dLNear Optimal/Above Optimal LDL: 110- 129 mg/dLBorderline High LDL: 130-159 mg/dLHigh LDL: 160-189 mg/dLVery High LDL: greater than or equal to 190 mg/dL HDL Cholesterol 69 >40 mg/dL [facility] Comment:Desirable HDL: great er than 40 mg/dL Note: This HDL assay may give artificially low results in patients with liver disease. 07/02/2024 8:57 AM EDT 07/02/2024 11:23 AM EDT Result [facility] Katelynn Guzman MD LAB BLOOD ORDERABLES Final Result [facility] [address] [place] [phone] * Mammography (06/18/2024 1:59 PM EDT) Mammogram BIRADS 2 Normal, Abnormal, BIRADS 1 , BIRADS 2 Anatomical Region Laterality Modality Other Result [facility] Provider HEALTH MAINTENANCE Final Result * Colonoscopy (11/10/2023) Colonoscopy Normal Normal Comment:fh colon ca done wit Dr. Robertson Result [facility] Provider HEALTH MAINTENANCE Final Result * Diabetes Eye Exam (06/12/2023) Pathologist [facility] Eye Exam Normal Normal Comment:[facility] Susanna Limon Result [facility] Provider HEALTH MAINTENANCE Final Result * Hepatitis C Antibody (12/07/2020 12:18 PM EST) Pathologist [facility] Hepatitis C Antibody Nonreactive Blood 12/07/2020 12:1 8 PM EST Result [facility] Provider POINT OF CARE TEST ENTER/ EDIT ORDERABLES Final Result * HIV 1/2 ANTIGEN/ANTIBODY,FOURTH GENERATION W/RFL (12/07/2020 11:38 AM EST) Pathologist [facility] HIV-1/2 ANTIGEN AND ANTIBODIES, 4TH GENERATION W/ REFLEX NON-REACT SIDNEY NON-REACT SIDNEY [facility] Comment: HIV-1 antigen and HIV-1/HIV-2 antibodies were not detected. There is no laboratory evidence of HIV infection. ?? PLEASE NOTE: This information has been disclosed to you from records whose confidentiality may be protected by state law. ??If your state requires such protection, then the state law prohibits you from making any further disclosure of the information without the specific written consent of the person to whom it pertains, or as otherwise permitted by law. A general authorization for the release of medical or other information is NOT sufficient for this purpose. ? For additional information please refer to http://Newsbound.TipHive/faq/AFF985 (This link is being provided for informational/ educational purposes only.) ? The performance of this assay has not been clinically validated in patients less than 2 years old. ?? 12/07/2020 11:3 8 AM EST Katelynn Guzman MD LAB BLOOD ORDERABLES Final Result [facility] [address] [place] [address], * Pap Smear (10/13/2003 12:00 AM EST) Swab [facility] Provider LAB CYTOLOGY ORDERABLES F inal Result [facility] [address] [place] [address] [phone] from Last 3 Months or Most Recently Relevant to Health Maintenance Insurance [facility] C[place] AD[place] Advance Directives Documents on File Type Date Recorded Patient Supervisor Grading Expl anation Advance Directives and Living Will 07/29/2024 2:10 PM Health Care Proxy Care Teams Deep Well Contractor Relationship Specialty Start Date End Date Megan, MD Katelynn [address] [place] [address] PCP - General Family Medicine 10/26/13 Heena Howard PharmD [address] [place] [address] Pharmacist Internal Medicine 09/26/22 Jere Khoury MD [address] [place] [phone] Hematology and Oncology 09/20/24 Susanna Garibay [address] [place] [phone] Ophthalmology 10/29/24 Ghislaine Ritter Psychiatry 10/26/24
--- OUTSIDE RECORDS SUMMARY | 2024-11-12 12:49 | XMS_ITS | Encounter Summary ---
Author Organization [email or web address] Address [address] [place] [address] Care Team Providers Care Physical Optics Teacher Name Role Phone Katelynn Guzman MD Primary Care Provider [phone] Heena Howard PharmD Unavailable Jere Khoury MD Unavailable [phone] Reason for Visit * Reason Comments Med Refill Encounter Details Date Type Department Care Team (Late st Contact Info) Description 10/21/[address] [facility] [address] [place] [address] Collette Hunt MD [address] [facility] [place] [address] Hypertension, unspecified type Social History Tobacco Use [...] 11/18/2024 1:00 PM EST Nurse Only [address] [address] 11/24/2024 2:00 PM EST Medication Management [address] [address] Heena Howard, PharmD [address] [place] [phone] 12/13/2024 11:00 AM EST Office Visit [address] [address] Katelynn Guzman MD [address] [place] [phone] documented as of this encounter Goals Goal Patient Goal Type Associated Problems Recent Progress Patient-Stated? 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 Type 2 diabetes mellitus with diabetic polyneuropathy, with long-term current use of insulin ([facility]) Vitamin B deficiency Unspecified vitamin B deficiency documented in this encounter Additional Health Concerns Assessment Noted Time PHQ-9 Depression Total Score: 9 07/28/20 24 4:10 PM EDT documented as of this encounter Care Teams Physical Optics Teacher Relationship Specialty Start Date End Date Katelynn Guzman MD [address] [place] [address] PCP - General Family Medicine 10/26/13 Heena Howard, PharmD [address] [place] [address] Pharmacist Internal Medicine 09/26/22 Jere Khoury MD [address] [place] [phone] Hematology and Oncology 09/20/24 documented as of this encounter
[2024-11-12 13:46] LABS: Basophils Percent Auto 0.7 % (0-2); Eosinophils Absolute Auto 0.3 X10*3/uL (0.0-0.4); Eosinophils Percent Auto 4.7 % (0-4); Hematocrit 39.2 % (37.0-47.0); Hemoglobin 12.5 g/dl (12.0-16.0); Imm Gran Abs Auto 0.04 X10*3/uL (0.00-0.03); Imm Gran Pct Auto 0.7 % (0.0-0.4); Lymphocytes Percent Auto 16.7 % (20-40); Mean Corpuscular HGB Conc 31.9 g/dl (31.0-35.0); Mean Corpuscular Hemoglobin 26.1 pg (27.0-33.0); Mean Corpuscular Volume 81.8 fL (80.0-98.0); Mean Platelet Volume 13.4 fL (9.4-12.3); Monocytes Absolute Auto 0.6 X10*3/uL (0.1-1.2); Monocytes Percent Auto 10.3 % (2-11); Neutrophils Absolute Auto 4.1 x10*3/uL (2.0-8.3); Neutrophils Percent Auto 66.9 % (45-73); Platelet Count 122 X10*3/uL (160-400); Red Blood Count 4.79 X10*6/uL (4.20-5.50); White Blood Count 6.1 X10*3/uL (4.8-10.8)
[2024-11-12 14:21] LABS: Alanine Aminotransferase 35 U/L (0-31); Alkaline Phosphatase 114 U/L (39-117); Anion Gap 13 (12-20); Aspartate Amino Transferase 34 U/L (5-31); Bilirubin Total 0.3 mg/dL (0.0-1.0); Blood Urea Nitrogen 15 mg/dL (9-16); Calcium 9.2 mg/dL (8.4-10.2); Carbon Dioxide 29 mmol/L (22-29); Chloride 101 mmol/L (96-108); Estimated Glomerular Filt Rate 58; Glucose Random 254 mg/dL (60-115); Potassium 4.2 mmol/L (3.3-5.1); Sodium 139 mmol/L (135-145); Total Protein 7.4 g/dL (6.5-8.0)
[2024-11-12 14:30] LABS: TSH reflex Free T4 4.98 uIU/mL (0.32-4.0)
[2024-11-12 14:34] LABS: Creatinine Urine 151.44 mg/dL; Microalbum/Creatinine Ratio Ur 88.4 ug/mg cr (<30)
[2024-11-12 15:06] LABS: Free T4 (Free Thyroxine) 1.21 ng/dL (0.71-1.85)
[2024-11-18 21:38] LABS: Fructosamine 299 umol/L (205-285)
== END 2024-11-12 12:23 | disposition home or self-care (01) ==
LOC: HO.LAB 12:22
PROVIDERS: Nurse Practitioner Primary Care; Absent Provider Internal Medicine Medical Oncology; PCP Family Medicine; Visit Provider Family Medicine
DX: D69.3 Immune thrombocytopenic purpura (principal); E03.9 Hypothyroidism, unspecified; Z79.4 Long term (current) use of insulin; E11.40 Type 2 diabetes mellitus with diabetic neuropathy, unspecified
CPT/HCPCS: 36415; 80053; 82043; 82570; 82985; 84439; 84443; 85025

== ENCOUNTER 2024-11-15 10:57 | Outpatient (AMB) | payer MEDICAID, SELFPAY ==
[2024-11-15 11:00] VITALS: BP 118/68; PULSE 83; O2SAT 96; BMI 38.1
--- NOTE | 2024-11-15 11:00 | A.OFFVIS_ITS ---
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 Required: No Accompanied by: Self / Same As Patient Allergies ibuprofen [IBUPROFEN] Allergy (Mild, Verified 11/16/24 13:22) RASH Medication List - Last Reconciled 11/15/24 by Valentina Phillips LPN acetaminophen (Tylenol Extra Strength) 1,000 mg PO QID PRN aspirin (Adult Low Dose Aspirin) 81 mg PO DAILY atorvastatin 80 mg PO DAILY 90 days blood sugar diagnostic (FreeStyle Lite Strips) As directed four times a day cetirizine 10 mg PO DAILY cholecalciferol (vitamin D3) 50 mcg PO DAILY clonazepam 1 mg PO BID cyanocobalamin (vitamin B-12) 1,000 mcg IM QMONTH cyclobenzaprine 10 mg PO BEDTIME PRN dicyclomine 20 mg PO TID duloxetine 40 mg PO BEDTIME ferrous sulfate 325 mg PO DAILY glucagon 3 mg/actuation (Baqsimi) 3 mg intranasal DIRECTED hydrochlorothiazide 12.5 mg PO DAILY insulin glargine U-300 conc (Toujeo Max U-300 SoloStar) 120 units subcut DAILY insulin lispro 1 sliding scale dose subcut USEASDIRECTD ketotifen fumarate 0.025%(0.035%) (Eye Itch Relief) 1 drp ophthalmic (eye) BID PRN lancets (FreeStyle Lancets) 4 times a day levothyroxine (Tirosint) 137 mcg PO DAILY@0600 lisinopril 2.5 mg PO DAILY omeprazole 20 mg PO DAILY ondansetron 8 mg PO Q8H pen needle, diabetic (BD Karla 2nd Gen Pen Needle) Twice a day prednisone 5 mg PO DIRECTED quetiapine 300 mg PO BEDTIME sennosides-docusate sodium 8.6-50 mg (Senna Plus) 1 tab-cap PO DAILY tacrolimus 0.1% 1 appl topical BID PRN tirzepatide (Mounjaro) 10 mg subcut QWEEK tirzepatide (Mounjaro) 12.5 mg subcut QWEEK tramadol 25 mg PO Q6H PRN tramadol 50 mg PO Q8H PRN zolpidem 10 mg PO BEDTIME HPI HPI Dyspnea/CT, PFT,Sleep Lab- FU: Details: Bhavna is a pleasant 58 year old female, former smoker, quit 30 years ago with 45+pyh with underlying hypothyroidism, CAD, diabetes, fibromyalgia, GERD, hypertension, IBS, obesity, and ITP. She was referred by ED after admitted in May for several day history of diffuse arthralgias, dysphagia, fevers at home. The patient reports a history of ITP and was recently treated with rituximab (about 4 days prior to admission). There was question of serum sickness like reaction secondary to Rixtuximab. Per Dr. Khoury's last note, holding off on Rituximab at this time and completed a prednisone course. CT revealed bibasilar atlectasis vs consolidation as well as bilateral trace pleural effusions. . She was ultimately discharged on prednisone as well as 4 L supplemental oxygen. She continues to use 2L supplemental oxygen PRN and is questioning how consistent she needs to use. She does not use suppl emental oxygen at [facility]. She had a prior PFT in 2018 which revealed moderate restrictive defect with normal DLCO. Since the last visit she reports overall improvements in respiratory symptoms however continues with chest tightness and wheezing as well as occasional dyspnea on exertion. She has not been using supplemental oxygen and today oxygen saturation 96% on room air. Today she presents to review PFT and chest CT. She denies any visits to urgent care or hospitalizations related to respiratory distress since the last visit. Of note, she was also sent for home sleep study however could not complete and would like to hold off on attempting. Will rediscuss at follow up. 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) use of insulin Diabetes type 2, uncontrolled Chronic ITP (idiopathic thrombocytopenia) Asthma Pernicious anemia Diabetes mellitus Fibromyalgia GERD (gastroesophageal reflux disease) Hypertension Adult hypothyroidism Chronic ITP (idiopathic thrombocytopenia) Surgical History H/O colonoscopy Hx of cataract surgery H/O: hysterectomy Family History Mother Diabetes Sister Stomach cancer Father Brother Colon cancer Brother Pancreas cancer Social History Household Members: Spouse Housing: Apartment Are you a primary dialysis patient care technician to a significant other at home: No Do you presently have visiting nurse or other home services: Yes Alcohol intake: current Alcohol intake frequency: does not drink Patient Tobacco Use Status: Former Tobacco user Tobacco use type: Cigarette Use of substances other than those prescribed or required for medical reasons: No Have you been hit, kicked, punched, or otherwise hurt by someone within the past year? If so, by whom?: No Advance Directives: No Advance Directives Information Provided: No Do you have thoughts of harming others: None Do you have a plan to hurt others: No Plan Do you have the means to hurt others: No Recently lost weight without trying: Unsure How much weight loss: 14-23 pounds Eating poorly because of decreased appetite: Yes Nutrition screen score: 5 Patient : No Poor oral hygiene: No service: No Current occupational status: unemployed Current occupation: she lives with her . Current occupational exposures/hazards: No Female Reproductive History Menstrual Age of Menarche: 7 Review of Systems Const Denies chills, Denies excessive sweating, Denies fever(s), Denies headache(s) and Denies night sweats Eyes Denies dry eyes, Denies irritation and Denies itchy eyes ENT Reports Normal hearing present, Denies headache(s), Denies nasal congestion, Denies nasal discharge, Denies post nasal drip and Denies sore throat Card Denies chest pain, Denies chest pain at rest, Denies chest pain with activity, Denies claudication, Denies leg edema, Denies dyspnea on exertion, Denies orthopnea and Denies paroxysmal nocturnal dyspnea Resp Denies chest congestion, Denies cough, Denies excessive phlegm production, Denies pain on inspiration, Denies pain with cough, Denies dyspnea on exertion, Denies stridor and Reports wheezing Musc Denies myalgias Neuro Reports Normal hearing present and Denies headache(s) Endo Denies excessive sweating Drew/Lymph Denies lymphadenopathy Aller/Immun Denies itchy eyes, Denies seasonal rhinorrhea and Reports wheezing Physical Exam Vital Signs: Last Vital Signs Pulse 83 11/15/24 11:00 BP 118/68 11/15/24 11:00 Pulse Ox 96 11/15/24 11:00 Oxygen Delivery Method Room Air 11/15/24 11:00 BMI result Body Mass Index 38.1 Const General: cooperative, healthy appearing, comfortable, no acute distress, well developed and alert Nutritional Appearance: obese Orientation/consciousness: patient oriented x3 Limitations: no limitations HEENT Head: Yes normal to inspection, Yes normocephalic and Yes atraumatic Ears: hearing grossly normal bilaterally and external ears normal Eyes General: appearance normal, both eyes and all related structures Eyelids: Yes eyelids normal Sclerae: sclerae normal EOM: EOMs intact bilaterally Neck Neck: Yes normal visual inspection and Yes no lymphadenopathy Lymphatic: no lymphadenopathy noted Chest Chest palpation & inspection: normal inspection of the chest Resp Effort & Inspection: normal respiratory effort, able to speak in complete sentences, no audible wheezes, no cough, no stridor, not tachypneic, no tripod positioning and no use of accessory muscles Auscultation: clear to auscultation bilaterally Cardio Jugular venous distension: no JVD Rate: regular rate Rhythm: regular rhythm Skin Other: warm, dry General skin exam: no rashes or lesions noted Neuro General: patient oriented x3 Cranial nerves: Yes Normal hearing present Cognition (Neuro): normal cognition Gait exam (Neuro): Normal gait present Extrem General: Yes normal to inspection, Yes capillary refill normal, Yes no clubbing, cyanosis or edema and Yes no pedal edema Psych Appearance: grossly normal and well kempt Speech and movement: Normal speech and movement present and Clear speech present Affect: normal affect Attitude: cooperative Thought process: Normal thought process present Thought content: Normal thought content present Insight: Good insight present (Psych) Judgement: Good judgement present (Psych) Results Reviewed Results Reviewed: [address] [address] [address] Scan Report Signed Patient: Bhavna Enriquez MR#: [id number] : 1965 Acct:[id number] Age/Sex: 58 / F ADM Date: 10/26/24 Loc: HO.CT Attending Dr: Cely Kothari NP Ordering Physician: Cely Kothari NP Date of Service: 10/26/24 Procedure(s): CT chest wo IV con Accession Number(s): [id number] cc: Katelynn Guzman MD; Cely Kothari NP~ Report Number: [id number]: Total DLP = 208.00 mGy-cm CLINICAL HISTORY: Z87.01 - Personal history of pneumonia (recurrent) CT chest without contrast Comparison: None Findings: The heart size is normal. Mild Atherosclerosis calcification of the coronary artery. The visualized thyroid and mediastinum are unremarkable. No consolidation or effusion. There is a calcified granuloma of the left upper lobe. Resolution of the small bilateral pleural effusion and the bibasilar opacity. The visualized upper abdomen is unremarkable. The bones are intact. IMPRESSION: 1. Unremarkable chest CT. This document has been electronically signed by: Kimberly Colin MD on 10/27/2024 07:00:15 Assessment & Plan Assessment & Plan (1) Asthma: Code(s): J45.909 - Unspecified asthma, uncomplicated Category: Medical (2) Dyspnea on exertion: Code(s): R06.09 - Other forms of dyspnea Category: Medical (3) Daytime somnolence: Code(s): R40.0 - Somnolence Category: Medical Plan Reviewed PFT which revealed moderate restrictive ventilatory defect with bronchodilator response present in small to medium airways only. Decreased expiratory reserve volume suggests extrathoracic restriction likely secondary to abdominal obesity. Combination of decreased diffusion capacity and restrictive ventilatory defect suggests underlying pulmonary parenchymal disease. Reviewed chest CT which was unremarkable, with resolution of pleural effusions/consolidations. Will empirically start on ICS/LABA. Discussed importance of good oral hygiene to prevent thrush. Patient interested in sending supplemental oxygen back, will schedule 6MWT and send for overnight oximetry to ensure resolution of nocturnal hypoxemia. All questions were answered and patient is in agreement of plan. Will follow up in 6-8 weeks or sooner if needed. Orders: Orders Overnight Pulse Oximetry Today G47.34 - Idiopathic sleep related nonobstructive alveolar hypoventilation Medications: New fluticasone furoate-vilanterol 100-25 mcg/dose (Breo Ellipta) 1 inh inhalation DAILY 60 ea 4RF Coding Level of Care Code Est Pt Level 4 (28662) Complex EM visit Add On G2211 Diagnoses Asthma J45.909 Dyspnea on exertion R06.09 Daytime somnolence R40.0
--- OUTSIDE RECORDS SUMMARY | 2024-11-15 12:04 | XMS_ITS | Encounter Summary ---
Author Organization [employer] Address [address] [place] [address] Care Team Providers Care Delivery Director Name Role Phone Katelynn Guzman MD Primary Care Provider [phone] Heena Howard PharmD Unavailable Jere Khoury MD Unavailable [phone] Susanna Garibay Unavailable Unavailable Reason for Visit * Reason Comments Med Refill Encounter Details Date Type Department Care Team (Late st Contact Info) Description 06/23/[address] [facility] [address] [place] [address] Katelynn Guzman MD [address] [place] [address] Acquired hypothyroidism Social History Tobacco Use Types [...] Description 11/18/2024 1:00 PM EST Nurse Only [address] [address] 11/24/2024 2:00 PM EST Medication Management [address] [address] Heena Howard, PharmD [address] [place] [address] 12/13/2024 11:00 AM EST Office Visit [address] [address] Katelynn Guzman MD [address] [place] [address] documented as of this encounter Goals Goal [...] documented as of this encounter Care Teams Delivery Director Relationship Specialty Start Date End Date Katelynn Guzman MD [address] [place] [address] PCP - General Family Medicine 10/26/13 Heena Howard, JosephD [address] [place] [address] Pharmacist Internal Medicine 09/26/22 Jere Khoury MD [address] [place] [address] Hematology and Oncology 09/20/24 Susanna Garibay [address] [place] [address] Ophthalmology 10/29/24 Ghislaine Ritter Psychiatry 10/26/24 documented as of this encounter
--- OUTSIDE RECORDS SUMMARY | 2024-11-15 12:04 | XMS_ITS | Encounter Summary ---
Author Organization [employer] Address [address] [place] [address] Care Team Providers Care College Intern Name Role Phone Katelynn Guzman MD Primary Care Provider [phone] Heena Howard PharmD Unavailable Jere Khoury MD Unavailable [phone] Susanna Garibay Unavailable Unavailable Reason for Visit * Reason Comments Med Refill Encounter Details Date Type Department Care Team (Late st Contact Info) Description 11/09/2024 Refill [facility] [address] [place], [place] [phone] Heena Howard, PharmD [address] [place], [place] [phone] Type 2 diabetes mellitus with diabetic polyneuropathy, with long-term current use of insulin ([facility]) Social History Tobacco Use Types Packs/Day Years [...] Description 11/18/2024 1:00 PM EST Nurse Only [address] [address] 11/24/2024 2:00 PM EST Medication Management [address] [address] Heena Howard, PharmD [address] [place] [address] 12/13/2024 11:00 AM EST Office Visit [address] [address] Katelynn Guzman MD [address] [place] [address] documented as of this encounter Goals Goal Patient Goal Type Associated Problems Recent Progress Patient-Stated? Author Hemoglobin A1c < 7 Result Component 8.4(09/28/2024 2:38 PM EST) No Heena Howard, Luly documented as of this encounter Visit Diagnoses Diagnosis Type 2 diabetes mellitus with diabetic polyneuropathy, with long-term current use of insulin ([facility]) Recurrent major depressive episodes, moderate ([facility])- Primary Major depressive disorder, recurrent episode, moderate Dietary counseling Dietary surveillance and counseling Exercise counseling Class 3 severe obesity due to excess calories with serious comorbidity and body mass index (BMI) of 40.0 to 44.9 in adult ([facility]) Idiopathic thrombocytopenic purpura ([facility]) Immune thrombocytopenic purpura 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 Type 2 diabetes mellitus with diabetic polyneuropathy, with long-term current use of insulin ([facility]) Vitamin B deficiency Unspecified vitamin B deficiency documented in this encounter Additional Health Concerns Assessment Noted Time PHQ-9 Depression Total Score: 9 07/28/20 24 4:10 PM EDT documented as of this encounter Care Teams College Intern Relationship Specialty Start Date End Date Katelynn Guzman MD [address] [place] [address] PCP - General Family Medicine 10/26/13 Heena Howard, PharmD [address] [place] [address] Pharmacist Internal Medicine 09/26/22 Jere Khoury MD [address] [place] [address] Hematology and Oncology 09/20/24 Susanna Garibay [address] [place] [address] Ophthalmology 10/29/24 Ghislaine Stone Psychiatry 10/26/24 documented as of this encounter
--- OUTSIDE RECORDS SUMMARY | 2024-11-15 12:04 | XMS_ITS | Encounter Summary ---
Author Organization [employer] Address [address] [place] [address] Care Team Providers Care Director Of Materials Management Name Role Phone Katelynn Guzman MD Primary Care Provider [phone] Heena Howard PharmD Unavailable [phone] Jere Khoury MD Unavailable [phone] Susanna Garibay Unavailable Unavailable Encounter Details Date Type Department Care Team (Late st Contact Info) Description 10/09/2023 Orders Only [facility] [address] [place], [place] [phone] Katelynn Guzman MD [address] [place], [place] [phone] Social History Tobacco Use Types Packs/Day Years [...] Description 11/18/2024 1:00 PM EST Nurse Only [address] [address] 11/24/2024 2:00 PM EST Medication Management [address] [address] Heena Howard, PharmD [address] [place] [address] 12/13/2024 11:00 AM EST Office Visit [address] [address] Katelynn Guzman MD [address] [place] [address] documented as of this encounter Goals Goal [...] documented as of this encounter Care Teams Director Of Materials Management Relationship Specialty Start Date End Date Katelynn Guzman MD [address] [place] [address] PCP - General Family Medicine 10/26/13 Heena Howard PharmD [address] [place], [place] [phone] Pharmacist Internal Medicine 09/26/22 Jere Khoury MD [address] [place] [address] Hematology and Oncology 09/20/24 Susanna Garibay [address] [place] [address] Ophthalmology 10/29/24 Ghislaine Ritter Psychiatry 10/26/24 documented as of this encounter
--- OUTSIDE RECORDS SUMMARY | 2024-11-15 12:04 | XMS_ITS | Encounter Summary ---
Author Organization [employer] Address [address] [place] [address] Care Team Providers Care Material Expediter Name Role Phone Katelynn Guzman MD Primary Care Provider [phone] Heena Howard PharmD Unavailable Jere Khoury MD Unavailable [phone] Susanna Garibay Unavailable Unavailable Encounter Details Date Type Department Care Team (Latest Contact Info) Description 2024 Outside Procedure [facility] [address] [place] [address] Ermias, Jayshree, OD [address] [place] [address] Presbyopia (Primary Dx) Social History Tobacco Use [...] Description 11/18/2024 1:00 PM EST Nurse Only [facility] [address] [place] [address] 11/24/2024 2:00 PM EST Medication Management [facility] [address] [place] [phone] Heena Howard, PharmD [address] [place] [address] 12/13/2024 11:00 AM EST Office Visit [facility] [address] [place] [address] Katelynn Guzman MD [address] [place] [address] documented as of this encounter Goals Goal [...] polyneuropathy, with long-term current use of insulin ([facility]) Vitamin B deficiency Unspecified vitamin B deficiency documented in this encounter Additional Health Concerns Assessment Noted Time PHQ-9 Depression Total Score: 9 07/28/20 24 4:10 PM EDT documented as of this encounter Care Teams Material Expediter Relationship Specialty Start Date End Date Katelynn Guzamn MD [address] [place] [address] PCP - General Family Medicine 10/26/13 Heena Howard, PharmD [address] [place] [address] Pharmacist Internal Medicine 09/26/22 Jere Khoury MD [address] [place] [address] Hematology and Oncology 09/20/24 Susanna Garibay [address] [place] [address] Ophthalmology 10/29/24 Ghislaine Stone Psychiatry 10/26/24 documented as of this encounter
--- OUTSIDE RECORDS SUMMARY | 2024-11-15 12:04 | XMS_ITS | Encounter Summary ---
Author Organization [employer] Address [address] [place] [address] Care Team Providers Care Manager Of Broadcast Content Name Role Phone Katelynn Guzman MD Primary Care Provider [phone] Heena Howard PharmD Unavailable Jere Khoury MD Unavailable [phone] Susanna Garibay Unavailable Unavailable Encounter Details Date Type Department Care Team (Late st Contact Info) Description 11/02/2024 3:00 PM EST Office Visit [facility] [address] [place] [address] Ermias, Jayshree, OD [address] [place] [address] Regular astigmatism of right eye (Primary Dx) [...] Description 11/18/2024 1:00 PM EST Nurse Only [facility] [address] [place] [address] 11/24/2024 2:00 PM EST Medication Management [address] [phone] Heena Howard, PharmD [address] [place] [address] 12/13/2024 11:00 AM EST Office Visit [address] [address] Katelynn Guzman MD [address] [place] [address] documented as of this encounter Goals Goal [...] polyneuropathy, with long-term current use of insulin ([facility]) Vitamin B deficiency Unspecified vitamin B deficiency documented in this encounter Additional Health Concerns Assessment Noted Time PHQ-9 Depression Total Score: 9 07/28/20 24 4:10 PM EDT documented as of this encounter Care Teams Manager Of Broadcast Content Relationship Specialty Start Date End Date Katelynn Guzman MD [address] [place] [address] PCP - General Family Medicine 10/26/13 Heena Howard, PharmD [address] [place] [address] Pharmacist Internal Medicine 09/26/22 Jere Khoury MD [address] [place] [address] Hematology and Oncology 09/20/24 Susanna Garibay [address] [place] [address] Ophthalmology 10/29/24 Ghislaine Stone Psychiatry 10/26/24 documented as of this encounter
--- OUTSIDE RECORDS SUMMARY | 2024-11-15 12:04 | XMS_ITS | Encounter Summary ---
Author Organization [employer] Address [address] [facility] [address] 7t [place] [address] Care Team Providers Care Certified Corporate Travel Executive Name Role Phone Katelynn Guzman MD Primary Care Provider +1- [phone] Heena Howard PharmD Unavailable [phone] Jere Khoury MD Unavailable [phone] Susanna Garibay Unavailable Unavailable Reason for Visit * Reason Comments Med Refill Encounter Details Date Type Department Care Team (Late st Contact Info) Description 11/09/2024 Refill [facility] [address] [place] [address] Katelynn Guzman MD [address] [place] [address] Pain; Chronic vaginitis; Acquired hypothyroidism; Abdominal pain, [...] Description 11/18/2024 1:00 PM EST Nurse Only [address] [address] 11/24/2024 2:00 PM EST Medication Management [address] [address] Heena Howard, PharmD [address] [place] [address] 12/13/2024 11:00 AM EST Office Visit [address] [address] Katelynn Guzman MD [address] [place] [address] documented as of this encounter Goals Goal Patient Goal Type Associated Problems Recent Progress Patient-Stated? Author Hemoglobin A1c < 7 Result Component 8.4(09/28/2024 2:38 PM EST) No Heena Howard, PharmD documented as of this encounter Visit Diagnoses Diagnosis Pain Generalized pain Chronic vaginitis Unspecified vaginitis and vulvovaginitis Acquired hypothyroidism Unspecified hypothyroidism Abdominal pain, unspecified abdominal location Recurrent major depressive episodes, moderate ([facility])- Primary Major depressive disorder, recurrent episode, moderate Dietary counseling Dietary surveillance and counseling Exercise counseling Class 3 severe obesity due to excess calories with serious comorbidity and body mass index (BMI) of 40.0 to 44.9 in adult ([facility]) Idiopathic thrombocytopenic purpura ([facility]/HCC) Immune thrombocytopenic purpura 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 Type 2 diabetes mellitus with diabetic polyneuropathy, with long-term current use of insulin ([facility]) Vitamin B deficiency Unspecified vitamin B deficiency documented in this encounter Additional Health Concerns Assessment Noted Time PHQ-9 Depression Total Score: 9 07/28/20 24 4:10 PM EDT documented as of this encounter Care Teams Certified Corporate Travel Executive Relationship Specialty Start Date End Date Katelynn Guzman MD [address] [place] [address] PCP - General Family Medicine 10/26/13 Heena Howard, PharmD [address] [place] [address] Pharmacist Internal Medicine 09/26/22 Jere Khoury MD [address] [place] [address] Hematology and Oncology 09/20/24 Susanna Garibay [address] [place] [address] Ophthalmology 10/29/24 Ghislaine Stone Psychiatry 10/26/24 documented as of this encounter
--- OUTSIDE RECORDS SUMMARY | 2024-11-15 12:04 | XMS_ITS | Encounter Summary ---
Author Organization [employer] Address [address] [facility] [address] 7t [place] [address] Care Team Providers Care Spotter Driver Name Role Phone Katelynn Guzman MD Primary Care Provider [phone]- [phone] Heena Howard PharmD Unavailable [phone] Jere Khoury MD Unavailable [phone] Susanna Garibay Unavailable Unavailable Encounter Details Date Type Department Care Team (Late st Contact Info) Description 06/18/2024 Abstract [facility] [address] [place] [address] Katelynn Guzman MD 230 [place], [place] [phone] Social History Tobacco Use Types Packs/Day Years [...] 1:00 PM EST Nurse Only [facility] [address] [place] [address] 11/24/2024 2:00 PM EST Medication Management [address] [address] Heena Howard, PharmD [address] [place] [address] 12/13/2024 11:00 AM EST Office Visit [address] [address] Katelynn Guzman MD [address] [place] [address] documented as of this encounter Goals Goal [...] documented as of this encounter Care Teams Spotter Driver Relationship Specialty Start Date End Date Katelynn Guzman MD [address] [place] [address] PCP - General Family Medicine 10/26/13 Heena Howard, JosephD [address] [place] [address] Pharmacist Internal Medicine 09/26/22 Jere Khoury MD [address] [place] [address] Hematology and Oncology 09/20/24 Susanna Garibay [address] [place] [address] Ophthalmology 10/29/24 Ghislaine Stone Psychiatry 10/26/24 documented as of this encounter
--- OUTSIDE RECORDS SUMMARY | 2024-11-15 12:04 | XMS_ITS | Encounter Summary ---
Author Organization [employer] Address [address] [facility] [address] 7t [place] [address] Care Team Providers Care Lighthouse Keeper Name Role Phone Katelynn Guzman MD Primary Care Provider [phone]- [phone] Heena Howard PharmD Unavailable Jere Khoury MD Unavailable [phone] Susanna Garibay Unavailable Unavailable Reason for Visit * Reason Comments Med Refill Encounter Details Date Type Department Care Team (Late st Contact Info) Description 09/15/[address] [facility] 230 [place], [place] [phone] Heena Howard, PharmD 230 [place], [place] [phone] Type 2 diabetes mellitus with diabetic neuropathy, with long-term current use of insulin ([facility]) Social History Tobacco Use Types Packs/Day [...] Description 11/18/2024 1:00 PM EST Nurse Only [address] [address] 11/24/2024 2:00 PM EST Medication Management [address] [address] Heena Howard, PharmD [address] [place] [address] 12/13/2024 11:00 AM EST Office Visit [address] [address] Katelynn Guzman MD [address] [place] [address] documented as of this encounter Goals Goal Patient Goal Type Associated Problems Recent Progress Patient-Stated? Author Hemoglobin A1c < 7 Result Component 8.4(09/28/2024 2:38 PM EST) No Heena Howard, JosephD documented as of this encounter Visit Diagnoses Diagnosis Type 2 diabetes mellitus with diabetic neuropathy, with long-term current use of insulin ([facility]) Recurrent major depressive episodes, moderate ([facility])- Primary Major depressive disorder, recurrent episode, moderate Dietary counseling Dietary surveillance and counseling Exercise counseling Class 3 severe obesity due to excess calories with serious comorbidity and body mass index (BMI) of 40.0 to 44.9 in adult ([facility]) Idiopathic thrombocytopenic purpura ([facility]/H[facility]) 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 Type 2 diabetes mellitus with diabetic polyneuropathy, with long-term current use of insulin ([facility]) Vitamin B deficiency Unspecified vitamin B deficiency documented in this encounter Additional Health Concerns Assessment Noted Time PHQ-9 Depression Total Score: 9 07/28/20 24 4:10 PM EDT documented as of this encounter Care Teams Lighthouse Keeper Relationship Specialty Start Date End Date Katelynn Guzman MD [address] [place] [address] PCP - General Family Medicine 10/26/13 Heena Howard, PharmD [address] [place] [address] Pharmacist Internal Medicine 09/26/22 Jere Khoury MD 575 [place] [address] Hematology and Oncology 09/20/24 Susanna Garibay [address] [place] [address] Ophthalmology 10/29/24 Ghislaine Momineroa Psychiatry 10/26/24 documented as of this encounter
--- OUTSIDE RECORDS SUMMARY | 2024-11-15 12:04 | XMS_ITS | Encounter Summary ---
Author Organization [employer] Address [address] [facility] [address] 7t [place] [address] Care Team Providers Care Clinical Appeals Rn Name Role Phone Katelynn Guzman MD Primary Care Provider [phone]- [phone] Heena Howard PharmD Unavailable Jere Khoury MD Unavailable [phone] Susanna Garibay Unavailable Unavailable Reason for Visit * Reason Comments Med Refill Encounter Details Date Type Department Care Team (Late st Contact Info) Description 05/26/2024 Refill [facility] 230 [place], [place] [phone] Heena Howard, PharmD 230 [place], [place] [phone] Type 2 diabetes mellitus without complication, with long-term current use of insulin ([facility]) Social History Tobacco Use Types [...] 1:00 PM EST Nurse Only [facility] [address] [place] [address] 11/24/2024 2:00 PM EST Medication Management [address] [address] Heena Howard, JospehD [address] [place] [address] 12/13/2024 11:00 AM EST Office Visit [facility] [address] [place] [address] Katelynn Guzman MD [address] [place] [address] documented as of this encounter Goals Goal Patient Goal Type Associated Problems Recent Progress Patient-Stated? Author Hemoglobin A1c < 7 Result Component 8.4(09/28/2024 2:38 PM EST) No Heena Howard, PharmD documented as of this encounter Visit Diagnoses Diagnosis Type 2 diabetes mellitus without complication, with long-term current use of insulin ([facility]/HCC) Recurrent major depressive episodes, moderate ([facility])- Primary Major depressive disorder, recurrent episode, moderate Dietary counseling Dietary surveillance and counseling Exercise counseling Class 3 severe obesity due to excess calories with serious comorbidity and body mass index (BMI) of 40.0 to 44.9 in adult ([facility]/HCC) Idiopathic thrombocytopenic purpura ([facility]/HCC) Immune thrombocytopenic purpura Polyglandular autoimmune syndrome ([facility]CC) Other specified polyglandular dysfunction Type 2 diabetes mellitus with diabetic polyneuropathy, with long-term current use of insulin ([facility]) Vitamin B deficiency Unspecified vitamin B deficiency documented in this encounter Additional Health Concerns Assessment Noted Time PHQ-9 Depression Total Score: 0 04/07/20 24 2:36 PM EDT documented as of this encounter Care Teams Clinical Appeals Rn Relationship Specialty Start Date End Date Katelynn Guzman MD 230 [place] [address] PCP - General Family Medicine 10/26/13 Heena Howard, JosephD 230 [place] [address] Pharmacist Internal Medicine 09/26/22 Jere Khoury MD [address] [place] [address] Hematology and Oncology 09/20/24 Susanna Garibay [address] [place] [address] Ophthalmology 10/29/24 Ghislaine Ritter Psychiatry 10/26/24 documented as of this encounter
--- OUTSIDE RECORDS SUMMARY | 2024-11-15 12:04 | XMS_ITS | Encounter Summary ---
Author Organization [employer] Address [address] [facility] [address] 7t [place] [address] Care Team Providers Care Optometric Tech Name Role Phone Katelynn Guzman MD Primary Care Provider [phone]- [phone] Heena Howard PharmD Unavailable Jere Khoury MD Unavailable [phone] Susanna Garibay Unavailable Unavailable Reason for Visit * Reason Onset Date Comments FYI 06/29/2024 Nurse Triage 06/29/2024 Encounter Details Date Type Department Care Team (Late st Contact Info) Description 06/29/2024 Telephone [facility] 230 [place], [place] [phone] Katelynn Guzman MD 230 [place], [place] [phone] FYI; Nurse Triage Social History Tobacco Use [...] 06/29/2024 12:42 PM EDT Called Yani from [facility] at [phone]. A nurse states that this is the first time seeing pt. Pt. Gets daily weight checks and last Friday06/22/24 pt weight was 207- and today 06/29/24 weightis 215. Bilateral Feet and legs are swollen mildly positive pedal pulses. Pt is breathing WNL, and lungs are clear. Today BP 120/60 pulse 81. I will call pt. For assessment. Called pt. [place] anodic operator [id number] Dg. Pt. Agrees that she has gained [...] EDT [facility] in the past week the patient has gained 8 pounds and the patient haves feet and leg swelling Yani would like a call back to discuss more at [phone] documented in this encounter Plan of Treatment Upcoming Encounters Date Type Department Care Team (Late st Contact Info) Description 11/18/2024 1:00 PM EST Nurse Only [address] [address] 11/24/2024 2:00 PM EST Medication Management [address] [address] Heena Howard, PharmD [address] [place] [address] 12/13/2024 11:00 AM EST Office Visit [address] [address] Katelynn Guzman MD [address] [place] [address] documented as of this encounter Goals Goal [...] documented as of this encounter Care Teams Optometric Tech Relationship Specialty Start Date End Date Katelynn Guzman MD 230 [place] [address] PCP - General Family Medicine 10/26/13 Heena Howard, PharmD 230 [place] [address] Pharmacist Internal Medicine 09/26/22 Jere Khoury MD [address] [place] [address] Hematology and Oncology 09/20/24 Susanna Garibay [address] [place] [address] Ophthalmology 10/29/24 Ghislaine Ritter Psychiatry 10/26/24 documented as of this encounter
--- OUTSIDE RECORDS SUMMARY | 2024-11-15 12:04 | XMS_ITS | Encounter Summary ---
Author Organization [employer] Address [address] [facility] [address] 7t [place] [address] Care Team Providers Care Picker / Packer Name Role Phone Katelynn Guzman MD Primary Care Provider [phone]- [phone] Heena Howard PharmD Unavailable Jere Khoury MD Unavailable [phone] Susanna Garibay Unavailable Unavailable Reason for Visit * Reason Comments Med Refill Encounter Details Date Type Department Care Team (Late st Contact Info) Description 08/21/2023 Refill [facility] 230 [place], [place] [phone] Heena Howard, PharmD 230 [place], [place] [phone] Social History Tobacco Use Types Packs/Day Years [...] Description 11/18/2024 1:00 PM EST Nurse Only [address] [address] 11/24/2024 2:00 PM EST Medication Management [address] [address] Heena Howard PharmD [address] [place] [address] 12/13/2024 11:00 AM EST Office Visit [address] [address] Katelynn Guzman MD [address] [place] [address] documented as of this encounter Goals Goal [...] documented as of this encounter Care Teams Picker / Packer Relationship Specialty Start Date End Date Katelynn Guzman MD [address] [place] [address] PCP - General Family Medicine 10/26/13 Heena Howard PharmD 230 [place] [address] Pharmacist Internal Medicine 09/26/22 Jere Khoury MD [address] [place] [address] Hematology and Oncology 09/20/24 Susanna Garibay [address] [place] [address] Ophthalmology 10/29/24 Ghislaine Ritter Psychiatry 10/26/24 documented as of this encounter
--- OUTSIDE RECORDS SUMMARY | 2024-11-15 12:04 | XMS_ITS | Encounter Summary ---
Author Organization [employer] Address [address] [facility] [address] 7t [place] [address] Care Team Providers Care Prototype Model Maker Name Role Phone Katelynn Guzman MD Primary Care Provider [phone]- [phone] Heena Howard PharmD Unavailable Jere Khoury MD Unavailable [phone] Susanna Garibay Unavailable Unavailable Reason for Visit * Reason Comments Rash Encounter Details Date Type Department Care Team (Late st Contact Info) Description 11/11/2024 3:00 PM EST Office Visit [facility] 230 [place], [place] [phone] Katelynn Guzman MD 230 [place], [place] [phone] Sarai (Primary Dx) Social History Tobacco Use [...] being on Prednisone currently. She follows with [facility]. Denies any other associated symptoms. Review of [...] face with areas of auto excoriation. -called [facility] [facility] and pt has follow-up appt on 11/15/24. [...] face with areas of auto excoriation. -called [facility] [facility] and pt has follow-up appt on 11/15/24. -encouraged staying away from scented creams or lotions. -prescribed diphenhydrAMINE (BENADryl) 25 MG documented in this encounter Plan of Treatment Upcoming Encounters Date Type Department Care Team (Late st Contact Info) Description 11/18/2024 1:00 PM EST Nurse Only [address] [address] 11/24/2024 2:00 PM EST Medication Management [address] [address] Heena Howard, PharmD [address] [place] [address] 12/13/2024 11:00 AM EST Office Visit [address] [address] Katelynn Guzman MD [address] [place] [address] documented as of this encounter Goals Goal [...] polyneuropathy, with long-term current use of insulin ([facility]) Vitamin B deficiency Unspecified vitamin B deficiency documented in this encounter Additional Health Concerns Assessment Noted Time PHQ-9 Depression Total Score: 9 07/28/20 24 4:10 PM EDT documented as of this encounter Care Teams Prototype Model Maker Relationship Specialty Start Date End Date Katelynn Guzman MD 230 [place] [address] PCP - General Family Medicine 10/26/13 Heena Howard, PharmD 230 [place] [address] Pharmacist Internal Medicine 09/26/22 Jere Khoury MD [address] [place] [address] Hematology and Oncology 09/20/24 Susanna Garibay [address] [place] [address] Ophthalmology 10/29/24 Ghislaine Ritter Psychiatry 10/26/24 documented as of this encounter
--- OUTSIDE RECORDS SUMMARY | 2024-11-15 12:04 | XMS_ITS | Encounter Summary ---
Author Organization [employer] Address [address] [facility] [address] 7t [place] [address] Care Team Providers Care Electronic Induction Hardener Name Role Phone Katelynn Guzman MD Primary Care Provider [phone]- [phone] Heena Howard PharmD Unavailable [phone]- [phone] Jere Khoury MD Unavailable [phone] Susanna Garibay Unavailable Unavailable Encounter Details Date Type Department Care Team (Late st Contact Info) Description 06/02/2024 Orders Only [facility] 230 [place], [place] [phone] Katelynn Guzman MD 230 [place], [place] [phone] Social History Tobacco Use Types Packs/Day Years [...] Description 11/18/2024 1:00 PM EST Nurse Only [facility] [address] [place] [address] 11/24/2024 2:00 PM EST Medication Management [facility] [address] [place] [address] Heena Howard PharmD [address] [place] [address] 12/13/2024 11:00 AM EST Office Visit [address] [address] Katelynn Guzman MD [address] [place] [address] documented as of this encounter Goals Goal Patient Goal Type Associated Problems Recent Progress Patient-Stated? Author Hemoglobin A1c < 7 Result Component 8.4(09/28/2024 2:38 PM EST) No Heena Hoawrd, PharmD documented as of this encounter Visit Diagnoses Not on filedocumented in this encounter Additional Health Concerns Assessment Noted Time PHQ-9 Depression Total Score: 0 04/07/20 24 2:36 PM EDT documented as of this encounter Care Teams Electronic Induction Hardener Relationship Specialty Start Date End Date Katelynn Guzman MD 230 [place] [address] PCP - General Family Medicine 10/26/13 Heena Howard, JosephD [address] [place] [address] Pharmacist Internal Medicine 09/26/22 Jere Khoury MD [address] [place] [address] Hematology and Oncology 09/20/24 Susanna Garibay [address] [place] [address] Ophthalmology 10/29/24 Ghislaine Ritter Psychiatry 10/26/24 documented as of this encounter
--- OUTSIDE RECORDS SUMMARY | 2024-11-15 12:04 | XMS_ITS | Encounter Summary ---
Author Organization [employer] Address [address] [facility] [address] 7t [place] [address] Care Team Providers Care Child Development Consultant Name Role Phone Katelynn Guzman MD Primary Care Provider [phone]- [phone] Heena Howard PharmD Unavailable Jere Khoury MD Unavailable [phone] Susanna Garibay Unavailable Unavailable Encounter Details Date Type Department Care Team (Late st Contact Info) Description 10/18/[address] [facility] MED[facility]INE 230 [place] [address] Katelynn Guzman MD 230 [place] [address] Social History Tobacco Use Types Packs/Day Years [...] 11/18/2024 1:00 PM EST Nurse Only [address] [address] 11/24/2024 2:00 PM EST Medication Management [address] [address] Heena Howard PharmD [address] [place] [address] 12/13/2024 11:00 AM EST Office Visit [address] [address] Katelynn Guzman MD [address] [place] [address] documented as of this encounter Visit Diagnoses Not on filedocumented in this encounter Care Teams Child Development Consultant Relationship Specialty Start Date End Date Katelynn Guzman MD [address] [place] [address] PCP - General Family Medicine 10/26/13 Heena Howard, JosephD [address] [place] [address] Pharmacist Internal Medicine 09/26/22 Jere Khoury MD [address] [place] [address] Hematology and Oncology 09/20/24 Susanna Garibay [address] [place] [address] Ophthalmology 10/29/24 Ghislaine Stone Psychiatry 10/26/24 documented as of this encounter
--- OUTSIDE RECORDS SUMMARY | 2024-11-15 12:04 | XMS_ITS | Encounter Summary ---
Author Organization [employer] Address [address] [place] [address] Care Team Providers Care Real Estate Loan Processor Name Role Phone Katelynn Guzman MD Primary Care Provider [phone]- [phone] Heena Howard PharmD Unavailable Jere Khoury MD Unavailable [phone] Susanna Garibay Unavailable Unavailable Reason for Visit * Reason Comments Med Refill Encounter Details Date Type Department Care Team (Late st Contact Info) Description 06/22/2024 Refill [facility] [address] [place], [place] [phone] Heena Howard, PharmD [address] [place], [place] [phone] Type 2 diabetes mellitus without complication, with long-term current use of insulin ([facility]) Social History Tobacco Use Types Packs/Day Years [...] Description 11/18/2024 1:00 PM EST Nurse Only [facility] [address] [place] [address] 11/24/2024 2:00 PM EST Medication Management [facility] [address] [place] [id number] Heena Howard PharmD [address] [place] [address] 12/13/2024 11:00 AM EST Office Visit [address] [address] Katelynn Guzman MD [address] [place] [address] documented as of this encounter Goals Goal Patient Goal Type Associated Problems Recent Progress Patient-Stated? Author Hemoglobin A1c < 7 Result Component 8.4(09/28/2024 2:38 PM EST) No Heena Howard, JosephD documented as of this encounter Visit Diagnoses Diagnosis Type 2 diabetes mellitus without complication, with long-term current use of insulin ([facility]) Recurrent major depressive episodes, moderate ([facility])- Primary Major depressive disorder, recurrent episode, moderate Dietary counseling Dietary surveillance and counseling Exercise counseling Class 3 severe obesity due to excess calories with serious comorbidity and body mass index (BMI) of 40.0 to 44.9 in adult ([facility]) Idiopathic thrombocytopenic purpura ([facility]) Immune thrombocytopenic 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 Type 2 diabetes mellitus with diabetic polyneuropathy, with long-term current use of insulin ([facility]) Vitamin B deficiency Unspecified vitamin B deficiency documented in this encounter Additional Health Concerns Assessment Noted Time PHQ-9 Depression Total Score: 0 04/07/20 24 2:36 PM EDT documented as of this encounter Care Teams Real Estate Loan Processor Relationship Specialty Start Date End Date Katelynn Guzman MD [address] [place] [address] PCP - General Family Medicine 10/26/13 Heena Howard, PharmD [address] [place] [address] Pharmacist Internal Medicine 09/26/22 Jere Khoury MD [address] [place] [address] Hematology and Oncology 09/20/24 Susanna Garibay [address] [place] [address] Ophthalmology 10/29/24 [facility] Stone Psychiatry 10/26/24 documented as of this encounter
--- OUTSIDE RECORDS SUMMARY | 2024-11-15 12:04 | XMS_ITS | Encounter Summary ---
Author Organization [employer] Address [address] [place] [address] Care Team Providers Care Leach Tank Tender Name Role Phone Katelynn Guzman MD Primary Care Provider [phone] Heena Howard PharmD Unavailable [phone] Jere Khoury MD Unavailable Encounter Details Date [...] Description 11/18/2024 1:00 PM EST Nurse Only [facility] [address] [place] [address] 11/24/2024 2:00 PM EST Medication Management [address] [address] Heena Howard PharmD [address] [place] [address] 12/13/2024 11:00 AM EST Office Visit [address] [address] Katelynn Guzman MD [address] [place] [address] documented as of this encounter Goals Goal [...] documented as of this encounter Care Teams Leach Tank Tender Relationship Specialty Start Date End Date Katelynn Guzman MD [address] [place] [address] PCP - General Family Medicine 10/26/13 Heena Howard PharmD [address] [place] [address] Pharmacist Internal Medicine 09/26/22 Jere Khoury MD [address] [place] [address] Hematology and Oncology 09/20/24 [facility] 10/26/24 documented as of this encounter
--- OUTSIDE RECORDS SUMMARY | 2024-11-15 12:05 | XMS_ITS | Encounter Summary ---
Author Organization [employer] Address [address] [place] [address] Care Team Providers Care Mc Kay Stitcher Name Role Phone Katelynn Guzman MD Primary Care Provider [phone] Heena Howard PharmD Unavailable Jere Khoury MD Unavailable [phone] Susanna Garibay Unavailable Unavailable Reason for Visit * Reason Comments Med Refill Encounter Details Date Type Department Care Team (Late st Contact Info) Description 10/12/2024 Refill [facility] [address] [place], [place] [phone] Heena Howard, PharmD [address] [place], [place] [phone] Type 2 diabetes mellitus with diabetic neuropathy, with long-term current use of insulin ([facility]) Social History Tobacco Use Types Packs/Day Years [...] Description 11/18/2024 1:00 PM EST Nurse Only [address] [address] 11/24/2024 2:00 PM EST Medication Management [address] [address] Heena Howard, PharmD [address] [place] [address] 12/13/2024 11:00 AM EST Office Visit [address] [address] Katelynn Guzman MD [address] [place] [address] documented as of this encounter Goals Goal Patient Goal Type Associated Problems Recent Progress Patient-Stated? Author Hemoglobin A1c < 7 Result Component 8.4(09/28/2024 2:38 PM EST) No Heena Howard, JosephD documented as of this encounter Visit Diagnoses Diagnosis Type 2 diabetes mellitus with diabetic neuropathy, with long-term current use of insulin ([facility]) Recurrent major depressive episodes, moderate ([facility])- Primary Major depressive disorder, recurrent episode, moderate Dietary counseling Dietary surveillance and counseling Exercise counseling Class 3 severe obesity due to excess calories with serious comorbidity and body mass index (BMI) of 40.0 to 44.9 in adult ([facility]) Idiopathic thrombocytopenic purpura ([facility]) 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 Type 2 diabetes mellitus with diabetic polyneuropathy, with long-term current use of insulin ([facility]) Vitamin B deficiency Unspecified vitamin B deficiency documented in this encounter Additional Health Concerns Assessment Noted Time PHQ-9 Depression Total Score: 9 07/28/20 24 4:10 PM EDT documented as of this encounter Care Teams Mc Kay Stitcher Relationship Specialty Start Date End Date Katelynn Guzman MD [address] [place] [address] PCP - General Family Medicine 10/26/13 Heena Howard, PharmD [address] [place] [address] Pharmacist Internal Medicine 09/26/22 Jere Khoury MD [address] [place] [address] Hematology and Oncology 09/20/24 Susanna Garibay [address] [place] [phone] Ophthalmology 10/29/24 [facility] Psychiatry 10/26/24 documented as of this encounter
--- OUTSIDE RECORDS SUMMARY | 2024-11-15 12:05 | XMS_ITS | Clinical Summary ---
Author Organization [employer] Address [address] [facility] [address] [place] [address] Care Team Providers Care Clinical Research Coordinator Name Role Phone Katelynn Guzman MD Primary Care Provider [phone] Heena Howard PharmD Unavailable Jere Khoury MD Unavailable [phone] Susanna Garibay Unavailable Unavailable Allergies Active [...] complication, with long-term current use of insulin ([facility]) Test blood sugar 4 times daily. 200 each 023 Active pen needle 32G x 4 mm miscIndications: Type 2 diabetes mellitus with diabetic neuropathy, with long-term current use of insulin ([facility]) Use as instructed for insulin use 4 times daily 100 each 024 2024 Active senna-docusate sodium (Senokot-S) 8.6-50 MG tabletIndication s:Dermatitis Take 1 tablet by mouth in the morning. 30 tablet 024 2024 Active atorvastatin (Lipitor) 80 MG tabletIndication s:Type 2 diabetes mellitus without complication, with long-term current use of insulin ([facility]) Take 1 tablet (80 mg) by mouth [...] complication, with long-term current use of insulin ([facility]) For low blood sugar emergency, administer 3mg via one device into one nostril; if no response after 15 minutes, an additional 3mg from the other device may be administered. 2 each Active glucose blood (FreeStyle Precision Junior Test) test stripIndications :Type 2 diabetes mellitus without complication, with long-term current use of insulin ([facility]) Test blood sugar every 8 hours as directed 100 each 024 2024 Active clotrimazole (Lotrimin) 1 % creamIndications :Candidiasis Apply topically 2 times daily. Use on buttock area bid for 1 days, kinyarwanda 28 g Active Continuous Glucose Sensor (FreeStyle Bob 2 Sensor) miscIndications: Type 2 diabetes mellitus with diabetic neuropathy, with long-term current use of insulin ([facility]) USE DIRECTED 1 SENSOR EVERY 14 DAYS [...] NEEDED 30 tablet 3 Active Continuous Glucose Caul Puller (FreeStyle Bob 3 Bellflower) deviceIndication s:Type 2 diabetes mellitus with diabetic neuropathy, with long-term current use of insulin ([facility]) 1 each Use as directed. Use to test blood sugar at least every 8 hours. 1 each Active Continuous Glucose Sensor (FreeStyle Bob 3 Sensor) miscIndications: Type 2 diabetes mellitus with diabetic neuropathy, with long-term current use of insulin ([facility]) 1 each Use as directed. Use to test blood sugar at least every 8 hours 2 each Active insulin glargine (Toujeo Max SoloStar) 300 UNIT/ML injectionIndicat ions:Type 2 diabetes mellitus with diabetic neuropathy, with long-term current use of insulin ([facility]) INJECT 110 UNITS SUBCUTANEOUSLY ONCE DAILY Active [...] neuropathy, with long-term current use of insulin ([facility]) INJECT SUBCUTANEOUSLY TWICE A DAY 34 UNITS BEFORE LUNCH AND 42 UNITS BEFORE DINNER (DO NOT USE IF SKIPPING MEAL) 15 mL 3 025 Active Tirzepatide (Mounjaro) 12.5 MG/0.5ML solution auto-injectorInd ications:Type 2 diabetes mellitus with diabetic polyneuropathy, with long-term current use of insulin ([facility]) INJECT 12.5 MG UNDER THE SKIN 1 [...] when blood glucose is < 70 mg. Martiniquais label. 022 2024 Discontinued(M ed list cleanup [...] use of insulin ([facility]) Inject 12.5 mg under the skin 1 [...] neuropathy, with long-term current use of insulin ([facility]) INJECT SUBCUTANEOUSLY TWICE A DAY 36 UNITS [...] be different from the original. Enrolled in [facility] DM clinic with Joseph MishraD, [facility] Problem Noted Date Diagnosed Date Rash 11/11/2024 Overview (11/11/2024): [facility] 11[facility]24 for itching rash. Unknown etiology. Called Tent Finisher and got pt an appt for 11/15/24. Pt agrees with plan. Assessment & Plan (11/11/2024 3:19 PM EST): Rash of unknown etiology on forearms, neck and face. Extensive erythematous palques on arms, anterior neck and face with areas of auto excoriation. -called Tent Finisher and pt has follow-up appt on 11/15/24. [...] symptoms since onset. -I tried calling her chemical processor today at but was not able to reach them. Per pt diagnosed w chronic vulvar skin disease, and pt is chronically on Doxycycline and skin creams on chart possibly for this. -From exam, it may be psoriasis or lichen planus, but unsure. -Requested [facility] Radha Sam to try and obtain last dermatology consult to clarify diagnosis. -Advise pt to continue care w her specialist. Per INFORMATION SYSTEMS ADMINISTRATOR has apt coming up this month. -Alarm [...] Stacy Tyson, last seen by Dr. Susanna Limno 10/2024 -dental home is [facility] -health care proxy given and filed 07/28/24 Assessment & Plan (07/28/2024 3:46 PM EDT): -next physical exam due after 12/21/2024 -eye care facilitated by Stacy Tyson, last seen by Dr. Susanna Limon 06/12/23 -dental home is [facility] -health care proxy given and filed 07/28/24 Assessment & Plan (04/09/2024 11:07 AM EDT): -next physical exam due after 12/21/2024 -eye care facilitated by Stacy Tyson, last seen by Dr. Susanna Limon 06/12/23 -dental home is [facility] -health care proxy Assessment & Plan (12/22/2023 12:26 PM EDT): -next physical exam due after 12/21/2024 -eye care facilitated by Stacy Tyson, last seen by Dr. Susanna Limon 06/12/23 -dental home is [facility] Assessment & Plan (04/16/2023 2:10 PM EDT): -next physical exam due after -eye care facilitated by [facility] and [facility] last seen 12/30/2021. Referral placed 11/11/2022. -dental [...] cefepime. Her case was discussed with the cooler operator, who recommended IV steroids and antibiotics. Most [...] top of her psoriasis . Seen by [facility] 04/08/24, Prescribe clobetasol 0.05% lotion scalp bid and alclometasone 0.05% cream to face bid. Betamethasone 0.05% oint to trunk and extremities BID. Tacrolimus 0.1% ointment bid prn Decrease steroids a symptoms improve Assessment & Plan (12/22/2023 12:18 PM EDT): -has hx of eczema due dermatitis -will refer to Bump Grader Operator Assessment & Plan (07/23/2023 4:16 PM EDT): [...] of this. Carpal tunnel education information in Martiniquais was provided to the patient. Patient was given a night splint. She verbalized understanding of the plan. Assessment & Plan (07/23/2023 4:11 PM EDT): Patient has early carpal tunnel. We discussed the pathophysiology of this. Carpal tunnel education information in Martiniquais was provided to the patient. Patient was given a night splint. She verbalized understanding of the plan. Assessment & Plan (04/16/2023 1:58 PM EDT): Patient has early carpal tunnel. We discussed the pathophysiology of this. Carpal tunnel education information in Martiniquais was provided to the patient. Patient was [...] by Dr. Heena Howard PharmD and Joshua team RN. -Has a continuous glucose monitor. Lab [...] be compliant, and improve her diet. Offered clinical program consultant referral, but pt is refusing, stating she has seen multiple metal tile setter in the past. -Agreed to fingerer referral today, because of her difficult to [...] Atorvastatin 80mg -Diabetic eye exam: eye and las and [facility] last seen 12/30/2021. Referral placed 11/11/2022. -Diabetic [...] Encounters Date Type Department Care Team Description 11/12/2024 Orders Only GENERIC EXTERNAL DATA DEPARTMENT Provider, Generic External Data 11/11/2024 3:00 PM EST Office Visit [facility] [address] [place] [address] Katelynn Guzman MD Rash (Primary Dx) 11/09/2024 Refill [facility] P[facility]S [address] [place] [address] Katelynn Guzman MD Pain; Chronic vaginitis; Acquired hypothyroidism; Abdominal pain, unspecified abdominal location 11/09/2024 Refill [facility] [address] [place] [address] Heena Howard PharmD Type 2 diabetes mellitus with diabetic polyneuropathy, with long-term current use of insulin ([facility]) 2024 Outside Procedure [facility] OPTOMET[facility] [address] [place] [address] Ermias, Jayshree, OD Presbyopia (Primary Dx) 11/02/2024 3:00 PM EST Office Visit [facility] [address] [place] [address] Ermias, Jayshree, OD Regular astigmatism of right eye (Primary Dx) 10/26/2024 Travel 10/21/2024 1:00 PM EST Nurse Only [facility] [address] [place] [address] Shakira Velez LPN B12 deficiency (Primary Dx) 10/21/2024 Refill [facility] [address] [place] [address] Collette Hunt MD Hypertension, unspecified type 10/21/2024 Refill [facility] [address] [place] [address] Katelynn Guzman MD Vitamin D deficiency; Hypertension, unspecified type 10/21/2024 Travel 10/15/2024 Telephone [facility] [address] [place] [address] Taryn Zavaleta [place] November10/15/2024 Refill [facility] [address] [place] [address] Katelynn Guzman MD Chronic vaginitis 10/12/2024 Refill [facility] [address] [place] [address] Katelynn Guzman MD Primary hypertension; Gastroesophageal reflux disease without esophagitis 10/12/2024 Refill [facility] [address] [place] [address] Heena Howard, Luly Type 2 diabetes mellitus with diabetic neuropathy, with long-term current use of insulin ([facility]) 10/12/2024 Refill [facility] [address] [place] [address] Katelynn Guzman MD Pain; Chronic vaginitis 10/08/2024 2:40 PM EST Office Visit [facility] [address] [place] [address] Olga Galan MD Precordial pain (Primary Dx) 10/08/2024 Orders Only [facility] External Provider, [facility] 10/08/2024 Telephone [facility] [address] [place] [phone] Marianna Pham RN EMR/EKG triage; Report To [facility] (Report called to Brit Mack @ [facility] [phone]) 10/05/2024 Telephone [facility] [address] [place] [phone] Heena Howard, PharmD 10/01/[address] [address] Heena Howard, PharmD 09/28/2024 Travel 09/20/2024 1:00 PM EST Nurse Only [address] [address] Shakira Velez LPN B12 deficiency (Primary Dx) 09/15/2024 Refill [facility] [address] [place] [address] Katelynn Guzman MD Pain; Chronic vaginitis 09/15/2024 Refill [facility] [address] [place] [phone] Heena Howard, PharmD Type 2 diabetes mellitus with diabetic neuropathy, with long-term current use of insulin ([facility]) 09/07/[address] [address] Katelynn Guzman MD 09/06/[address] [address] Heena Howard, PharmD 08/31/2024 11:00 AM EST Telemedicine [address] [address] Heena Howard, PharmD Type 2 diabetes mellitus with diabetic neuropathy, with long-term current use of insulin ([facility]) 08/27/[address] [address] Ira Lopez, [employer] 08/25/2024 Refill [facility] [address] [place] [address] Katelynn Guzman MD Chronic vaginitis; Pain; Abdominal pain, unspecified abdominal location 08/23/2024 1:00 PM EST Nurse Only [facility] [address] [place] [phone] Shakira Velez, GABY B12 deficiency 08/23/2024 Travel 08/23/2024 Refill [facility] [address] [place], [place] [phone] Katelynn Guzman MD Fibromyalgia 08/23/2024 Telephone [facility] [address] [place], [place] [phone] Ira Lopez RN Results 08/19/2024 Orders Only [facility] [address] [place] [address] [phone] Zee Jaramillo ANP from Last 3 Months Immunizations Name Administration [...] 6+ Bivalent 11/28/2022 Pfizer Covid-19 Vaccine 12+ 07/07/2024,,07/23/2023 Pneumococcal Conjugate PCV 20 04/16/2023 Pneumococcal Polysaccharide [...] Description 11/18/2024 1:00 PM EST Nurse Only [facility] [address] [place] [phone] 11/24/2024 2:00 PM EST Medication Management [address] [address] Heena Howard, PharmD [address] [place] [phone] 12/13/2024 11:00 AM EST Office Visit [facility] [address] [place] [phone] Katelynn Guzman MD [address] [place] [phone] Health Maintenance Due Date Last Done Comments [...] 01/26/2025 07/28/2024, 07/28/2024 SDOH Screening 04/07/2025 04/07/2024 Lipid Panel 07/02/2025 07/02/2024, 05/14, 02/12/2022, Additional history exists Alcohol/Substance Use Screening 07/28/2025 07/28/2024 Depression Screening 07/28/2025 07/28/2024, 07/28/20 Diabetes: Foot Exam 07/28/2025 07/28/2024, 07/28/2024, 07/28/2024, Additional history exists Tobacco Screening 11/11/2025 11/11/2024 Diabetes: Urine Protein Screening 11/12/2025 11/12/2024, 07/02/2024, 06/04/2023, Additional history exists Dental X-Ray: Full Mouth 02/06/2026 02/05/2023 Mammogram [...] Procedure Name Priority Date/Time Associated Diagnosis Comments ALBUMIN, RANDOM URINE W/CREATININE Routine 11/12/2024 12:33 PM EST T4, FREE Routine 11/12/2024 12:31 PM EST TSH W/REFLEX TO FT4 Routine 11/12/2024 1 2:31 PM EST COMPREHENSIVE METABOLIC PANEL Routine 11/12/2024 12:31 PM EST CBC WITH AUTO DIFFERENTIAL Routine 11/12/2024 12:[address] CHEST WO CONTRAST Routine 10/27/2024 7:00 [...] 08/19/2024 1:52 PM EST Bilateral leg edema LIPID PANEL, STANDARD Routine 07/02/2024 8:57 AM [...] Recently Relevant to Health Maintenance Results * (ABNORMAL) Albumin, Random Urine W/Creatinine (11/12/2024 12:33 PM EST) Creatinine, Urine 151.44 mg/dL [facility] Microalbumin Urine 134.0 mg/L [facility] Microalbum Creatinine Ratio Ur 88.4(H) <30 ug/mg cr [facility] Comment:Albumin/Creatinine R atio Reference Ranges: Normal: < 30 ug/mg creatinine Microalbuminuria: 30 - 300 ug/mg creatinineClinical Albuminuria: > 300 ug/mg creatinine 11/12/2024 12:3 3 PM EST 11/12/2024 1:45 PM EST us Katelynn Guzman MD LAB URINE ORDERABLES Final Result Performing Organization Address [facility] Co de Phone Number [facility] [address] [place] [address] [phone] * (ABNORMAL) TSH with Reflex to Free T4 (11/12/2024 12:31 PM EST) Only the most recent of2 resultswithin the time period is included. TSH reflex Free T4 4.98(H) 0.32 - 4.0 uIU/mL [facility] 11/12/2024 12:3 1 PM EST 11/12/2024 12:38 PM EST us Zee SÁNCHEZ LAB BLOOD ORDERABLES Final Resul t Performing Organization Address [facility] Co de Phone Number [facility] [address] [place] [address] [phone] * (ABNORMAL) CBC auto differential (11/12/2024 12:31 PM EST) Only the most recent of3 resultswithin the time period is included. White Blood Count 6.1 4.8 - 10.8 X10*3/uL [facility] Red Blood Count 4.79 4.20 - 5.50 X10*6/uL [facility] Hemoglobin 12.5 12.0 - 16.0 g/dl [facility] Hematocrit 39.2 37.0 - 47.0 % [facility] Mean Corpuscular Volume 81.8 80.0 - 98.0 fL [facility] Mean Corpuscular Hemoglobin 26.1(L) 27.0 - 33.0 pg [facility] Mean Corpuscular HGB Conc 31.9 31.0 - 35.0 g/dl [facility] Red Cell Distribution Width 14.0 11.0 - 16.0 % [facility] Platelet Count 122(L) 160 - 400 X10*3/uL [facility] Mean Platelet Volume 13.4(H) 9.4 - 12.3 fL [facility] Neutrophils Percent Auto 66.9 45 - 73 % [facility] Imm Gran Pct Auto 0.7(H) 0.0 - 0.4 % [facility] Lymphocytes Percent Auto 16.7(L) 20 - 40 % [facility] Monocytes Percent Auto 10.3 2 - 11 % [facility] Eosinophils Percent Auto 4.7(H) 0 - 4 % [facility] Basophils Percent Auto 0.7 0 - 2 % [facility] NRBC Pct Auto 0.0 0.0 - 0.2 /100WBC [facility] Neutrophils Absolute Auto 4.1 2.0 - 8.3 x10*3/uL [facility] Imm Gran Abs Auto 0.04(H) 0.00 - 0.03 X10*3/uL [facility] Lymphocytes Absolute Auto 1.0(L) 1.2 - 4.9 X10*3/uL [facility] Monocytes Absolute Auto 0.6 0.1 - 1.2 X10*3/uL [facility] Eosinophils Absolute Auto 0.3 0.0 - 0.4 X10*3/uL [facility] Basophils Absolute Auto 0.0 0.0 - 0.2 X10*3/uL [facility] NRBC Abs Auto 0.000 0.0 - 0.012 X10*3/uL [facility] 11/12/2024 12:3 1 PM EST 11/12/2024 12:38 PM EST Generic External Data Provider LAB BLOOD ORDERAB LES Final Result Performing Organization Address [facility]/ZIP Co de Phone Number [facility] [address] [place] [phone] * T4, Free (11/12/2024 12:31 PM EST) Only the most recent of2 resultswithin the time period is included. Free T4 (Free Thyroxine) 1.21 0.71 - 1.85 ng/dL [facility] 11/12/2024 12:3 1 PM EST 11/12/2024 12:38 PM EST us [facility] LAB BLOOD ORDERABLES Final Resul t Performing Organization Address [facility] Co de Phone Number [facility] [address] [place] [phone] * (ABNORMAL) Comprehensive Metabolic Panel (11/12/2024 12:31 PM EST) Only the most recent of2 resultswithin the time period is included. Sodium 139 135 - 145 mmol/L [facility] Potassium 4.2 3.3 - 5.1 mmol/L [facility] Chloride 101 96 - 108 mmol/L [facility] Carbon Dioxide 29 22 - 29 mmol/L [facility] Anion Gap 13 12 - 20 [facility] Urea Nitrogen (BUN) 15 9 - 16 mg/dL [facility] Creatinine, Serum 0.97 0.5 - 1.4 mg/dL [facility] Estimated Glomerular Filt Rate 58 [facility] Comment:Chronic Kidney Disea se: Estimated GFR < 60 mL/min/1.29c5Kflpzo Kidney Disease: Estimated GFR < 15 mL/min/1.73m2 Glucose 254(H) 60 - 115 mg/dL [facility] Calcium 9.2 8.4 - 10.2 mg/dL [facility] Bilirubin, Total 0.3 0.0 - 1.0 mg/dL [facility] Aspartate Amino Transferase 34(H) 5 - 31 U/L [facility] Alanine Aminotransferase 35(H) 0 - 31 U/L [facility] Total Protein 7.4 6.5 - 8.0 g/dL [facility] Albumin Level 4.0 3.5 - 5.0 g/dL [facility] Alkaline Phosphatase 114 39 - 117 U/L [facility] 11/12/2024 12:3 1 PM EST 11/12/2024 12:38 PM EST us Generic External Data Provider LAB BLOOD ORDERAB LES Final Result [facility] [address] [place] [address] [phone] * CT Chest w/o Contrast (10/27/2024 7:00 AM EST) Anatomical Region Laterality Modality Body, Chest Computed Tomogra phy 10/27/2024 7:00 AM EST Narrative 10/27/2024 7:01 AM EST ? [facility] ?[address] ?[place] [address] ? CT Scan Report ? Signed ? Patient: Bhavna Enriquez ?MR# ?? : [id number] ? : 1965 ?Acct:[id number] ? Age/Sex: 58 / F ?ADM Date: 01/14/25 ? Loc: HO.CT ? Attending Dr: Cely Kothari FARM MACHINERY ERECTOR ? Ordering Physician: Cely Kothari NP ?? Date of Service: 10/26/24 ?? Procedure(s): CT chest wo IV con ?? Accession Number(s): [id number] ? cc: Katelynn Guzman MD; Cely Kothari NP ? Report Number: ?? [id number]: Total DLP = ??208.00 mGy-cm ? CLINICAL [...] in OV> ? 10/27/24 0701 ? DD/ 0700 ? TD/TT: 10/27/24 07 ? Dive Superintendent: ? Procedure Note Nanette, Image - 10/27/[address] [place] [address] [address] Scan Report Signed Patient: Bhavna Enriquez DMR# : [id number] : 1965Acct:[id number] Age/Sex: 58 / FADM Date: 10/26/24 Loc: HO.CT Attending Dr: Cely Kothari NP Ordering Physician: Cely Kothari NP Date of Service: 10/26/24 Procedure(s): CT chest wo IV con Accession Number(s): [id number] cc: Katelynn Guzman MD; Cely Kothari NP Report Number: [id number]: Total DLP = 208.00 mGy-cm CLINICAL HISTORY: [...] in OV> 10/27/24700 DD/ 9 TD/TT: 10/27/24699 Dive Superintendent: [facility] External Provider IMG CT PROCEDURES Edited Result - Final * High Sensitivity Troponin I (10/08/2024 8:38 PM EST) Only the most recent of2 resultswithin the time period is included. TROPONIN I HIGH SENSITIVITY 3.3 <3.5 - 17.0 ng/L [facility] Comment:The Jean high sens itivity Troponin-I results should beused in conjunction with other diagnostic information suchas ECG, clinical observations and information, and patientsymptoms to aid in the diagnosis of CT. 10/08/2024 8:38 PM EST 10/08/2024 8:43 PM EST Generic External Data Provider LAB BLOOD ORDERAB LES Final Result Performing Organization Address [facility]/ZIP Co de Phone Number [facility] [address] [place] [phone] * (ABNORMAL) Magnesium (10/08/2024 6:08 PM EST) Magnesium 1.5(L) 1.6 - 2.6 mg/dL [facility] 10/08/2024 6:08 PM EST 10/08/2024 6:12 PM EST Generic External Data Provider LAB BLOOD ORDERAB LES Final Result Performing Organization Address [facility]/ZIP Co de Phone Number [facility] [address] [place] [address] [place] [phone] * Lipase (10/08/2024 6:08 PM EST) Lipase 45 8 - 78 U/L [facility] 10/08/2024 6:08 PM EST 10/08/2024 6:12 PM EST us Generic External Data Provider LAB BLOOD ORDERAB LES Final Result Performing Organization Address [facility]/State/ZIP Co de Phone Number [facility] [address] [place] [address] [phone] * XR Chest 2 Views (10/08/2024 5:49 PM EST) Anatomical Region Laterality Modality Chest Radiographic Thea ging 10/08/2024 5:49 PM EST Narrative 10/08/2024 5:50 PM EST ? [facility] ?[address] ?[place] [address] ?XRay Report ? Signed ? Patient: Bhavna Enriquez ?MR# ?? : [id number] ? : 1965 ?Acct:[id number] ? Age/Sex: 58 / F ?ADM Date: 10/08/24 ? Loc: HO.ED ? Attending Dr: ? Ordering Physician: Jacinta Phipps ?? Date of Service: 10/08/24 ?? Procedure(s): XR chest 2V ?? Accession Number(s): [id number] ? cc: Jacinta Phipps; [facility] ? CLINICAL HISTORY: pain ? 2 view [...] signed by Daniel Dalal MD in OV> ?10/08/24 1750 ? DD/DT: 10/08/ 1749 ? TD/TT: 10/08/ 1749 ? Dive Superintendent: ? Procedure Note Donotuseinterpreter, Image - 10/08/[address] [address] XRay Report Signed Patient: Bhavna Enriquez DMR# : [id number] : 1965Acct:[id number] Age/Sex: 58 / FADM Date: 10/08/24 Loc: HO.ED Attending Dr: Ordering Physician: Jacinta Phipps Date of Service: 10/08/24 Procedure(s): XR chest 2V Accession Number(s): [id number] cc: Jacinta Phipps; [facility] CLINICAL HISTORY: pain 2 view chest x-ray Comparison: None Findings: The lungs are clear. Heart size is normal. No acute fracture. IMPRESSION: 1. No acute findings. This document has been electronically signed by: Daniel Dalal MD on 10/08/2024 17:49:06 Dictated By: Daniel Dalal MD Signed By: <Electronically signed by Daniel Dalal MD in OV> 10/08/24 1750 DD/ 174 TD/TT: 10/08/24 174 Dive Superintendent: [facility] External Provider IMG XR PROCEDURES Final Result [...] Media Lot # [id number] Lot# Expiration Date [id number] Blood 09/28/2024 2:38 PM EST Katelynn Guzman MD POINT OF CARE TEST ENTER/E DIT ORDERABLES Final Result * B Type Natriuretic Peptide (BNP) (08/19/2024 1:52 PM EST) B Type Natriuretic Peptide 11 <100 pg/mL [facility] Comment:For those patients w ho are being treated with Natrecor(nesiritide, recombinant BNP), BNP testing should beperformed at least two hours post treatment in order toensure that only endogenous levels of BNP are detected. Blood Venous blood specimen / Unknown 08/19/2024 1:52 PM EST 08/19/2024 1:52 PM EST Zee Jaramillo [facility] LAB BLOOD ORDERABLES Final Resul t [facility] [address] [place] [phone] * (ABNORMAL) Lipid Panel, Standard (07/02/2024 8:57 AM EDT) Triglycerides 159(H) <150 mg/dL [facility] Comment:Desirable Triglyceri de: less than 150 mg/dLBorderline High Triglyceride 150-199 mg/dLHigh Triglyceride: 200-499 mg/dLVery High Triglyceride: greater than or equal to 5OO mg/dL Cholesterol 177 <200 mg/dL [facility] Comment:Desirable Cholestero l: less than 200 mg/dLBorderline High Cholesterol: 200-239 mg/dLHigh Cholesterol: greater than 239 mg/dL LDL Cholesterol Calculated 77 <100 mg/dL [facility] Comment:Desirable LDL: less than 100 mg/dLNear Optimal/Above Optimal LDL: 110- 129 mg/dLBorderline High LDL: 130-159 mg/dLHigh LDL: 160-189 mg/dLVery High LDL: greater than or equal to 190 mg/dL HDL Cholesterol 69 >40 mg/dL [facility] Comment:Desirable HDL: great er than 40 mg/dL Note: This HDL assay may give artificially low results in patients with liver disease. 07/02/2024 8:57 AM EDT 07/02/2024 11:23 AM EDT Result [facility] Katelynn Guzman MD LAB BLOOD ORDERABLES Final Result [facility] [address] [place] [address] [phone] * Mammography (06/18/2024 1:59 PM EDT) Mammogram BIRADS 2 Normal, Abnormal, BIRADS 1 , BIRADS 2 Anatomical Region Laterality Modality Other [facility] Provider HEALTH MAINTENANCE Final Result * Colonoscopy (11/10/2023) Pathologist [facility] Colonoscopy Normal Normal Comment:fh colon ca done meron Dr. Robertson [facility] Provider HEALTH MAINTENANCE Final Result * Diabetes Eye Exam (06/12/2023) Pathologist [facility] Eye Exam Normal Normal Comment:[facility] [place] [facility] Susanna Limon Result [facility] Provider HEALTH MAINTENANCE Final Result * Hepatitis C Antibody (12/07/2020 12:18 PM EST) Pathologist [facility] Hepatitis C Antibody Nonreactive Blood 12/07/2020 12:1 8 PM EST Result [facility] Provider POINT OF CARE TEST ENTER/ EDIT ORDERABLES Final Result * HIV 1/2 ANTIGEN/ANTIBODY,FOURTH GENERATION W/RFL (12/07/2020 11:38 AM EST) Pathologist [facility] HIV-1/2 ANTIGEN AND ANTIBODIES, 4TH GENERATION W/ REFLEX NON-REACT SIDNEY NON-REACT SIDNEY [facility] Comment: HIV-1 antigen and HIV-1/HIV-2 [...] ? For additional information please refer to http://education.Potential.[employer]/faq/TMV930 (This link is being provided for informational/ educational purposes only.) ? The performance of this assay has not been clinically validated in patients less than 2 years old. ?? 12/07/2020 11:3 8 AM EST Katelynn Guzman MD LAB BLOOD ORDERABLES Final Result [facility] [address] * Pap Smear (10/13/2003 12:00 AM EST) Swab [facility] Provider LAB CYTOLOGY ORDERABLES F inal Result [facility] [address] [place] [address] [phone] from Last 3 Months or Most Recently Relevant to Health Maintenance Insurance [facility] STAND ADULT Advance Directives Documents on File Type Date Recorded Patient Spring Layer Expl anation Advance Directives and Living Will 07/29/2024 2:10 PM Health Care Proxy Care Teams Clinical Research Coordinator Relationship Specialty Start Date End Date [place], [place] Katelynn [address] [place] [address] PCP - General Family Medicine 10/26/13 Heena Howard, JosephD [address] [place] [address] Pharmacist Internal Medicine 09/26/22 Jere Khoury MD [address] [place] [address] Hematology and Oncology 09/20/24 Susanna Garibay [address] [place] [address] Ophthalmology 10/29/24 Ghislaine Stone Psychiatry 10/26/24
--- OUTSIDE RECORDS SUMMARY | 2024-11-15 12:05 | XMS_ITS | Encounter Summary ---
Author Organization [employer] Address [address] 7[address] [place] [address] Care Team Providers Care Automatic Buffer Name Role Phone Katelynn Guzman MD Primary Care Provider [phone] Heena Howard PharmD Unavailable [phone] Jere Khoury MD Unavailable [phone] Encounter Details Date Type Department Care [...] 1:00 PM EST Nurse Only [facility] MEDICINE [address] [place] [address] 11/24/2024 2:00 PM EST Medication Management [address] [address] Heena Howard PharmD [address] [place] [address] 12/13/2024 11:00 AM EST Office Visit [address] [address] Katelynn Guzman MD [address] [place] [address] documented as of this encounter Goals Goal [...] documented as of this encounter Care Teams Automatic Buffer Relationship Specialty Start Date End Date Katelynn Guzman MD [address] [place] [address] PCP - General Family Medicine 10/26/13 Heena Howard PharmD [address] [place] [address] Pharmacist Internal Medicine 09/26/22 Jere Khoury MD [address] [place] [address] Hematology and Oncology 09/20/24 documented as of this encounter
--- OUTSIDE RECORDS SUMMARY | 2024-11-15 12:05 | XMS_ITS | Encounter Summary ---
Author Organization [employer] Address [address] 7t [place] [address] Care Team Providers Care Electrical Tech/Project Manager Name Role Phone Katelynn Guzman MD Primary Care Provider [phone] Heena Howard PharmD Unavailable [phone] Jere Khoury MD Unavailable [phone] Reason for Visit * Reason Comments Med Refill Encounter Details Date Type Department Care Team (Late st Contact Info) Description 10/21/2024 Refill [facility] [address] [place] [address] Katelynn Guzman MD [address] [place], [place] [phone] Vitamin D deficiency; Hypertension, unspecified type Social [...] Description 11/18/2024 1:00 PM EST Nurse Only [address] [address] 11/24/2024 2:00 PM EST Medication Management [address] [address] Heena Howard, PharmD [address] [place] [address] 12/13/2024 11:00 AM EST Office Visit [address] [address] Katelynn Guzman MD [address] [place] [address] documented as of this encounter Goals Goal Patient Goal Type Associated Problems Recent Progress Patient-Stated? 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 diabetic polyneuropathy, with long-term current use of insulin ([facility]) Vitamin B deficiency Unspecified vitamin B deficiency documented in this encounter Additional Health Concerns Assessment Noted Time PHQ-9 Depression Total Score: 9 07/28/20 24 4:10 PM EDT documented as of this encounter Care Teams Electrical Tech/Project Manager Relationship Specialty Start Date End Date Katelynn Guzman MD [address] [place] [address] PCP - General Family Medicine 10/26/13 Heena Howard, PharmD [address] [place] [address] Pharmacist Internal Medicine 09/26/22 Jere Khoury MD [address] [place] [address] Hematology and Oncology 09/20/24 documented as of this encounter
--- OUTSIDE RECORDS SUMMARY | 2024-11-15 12:05 | XMS_ITS | Encounter Summary ---
Author Organization [employer] [facility] Address [address] 7t [place] [address] Care Team Providers Care Customer Support Assistant Name Role Phone Katelynn Guzman MD Primary Care Provider [phone] Heena Howard PharmD Unavailable Jere Khoury MD Unavailable [phone] Susanna Garibay Unavailable Unavailable Encounter Details Date Type Department Care Team ([facility] Contact Info) Description 12/06/2022 Telephone [facility] [address] [place] [address] Katelynn Guzman MD [address] [place] [address] Social History Tobacco Use Types Packs/Day Years [...] Upcoming Encounters Date Type Department Care Team ([facility] Contact Info) Description 11/18/2024 1:00 PM EST Nurse Only [address] [address] 11/24/2024 2:00 PM EST Medication Management [address] [address] Heena Howard PharmD [address] [place] [address] 12/13/2024 11:00 AM EST Office Visit [address] [address] Katelynn Guzman MD [address] [place] [address] documented as of this encounter Goals Goal Patient Goal Type Associated Problems Recent Progress Patient-Stated? Author Hemoglobin A1c < 7 Result Component 8.4(09/28/2024 2:38 PM EST) No Heena Howard PharmD documented as of this encounter Visit Diagnoses Diagnosis Type 2 diabetes mellitus with diabetic neuropathy, with long-term current use of insulin (CMS/[facility]) Recurrent major depressive episodes, moderate (CMS/HCC)- Primary [...] current use of insulin ([facility]) Vitamin B deficiency Unspecified vitamin B deficiency documented in this encounter Additional Health Concerns Assessment Noted Time PHQ-9 Depression Total Score: 5 11/25/19 23 11:12 AM EST documented as of this encounter Care Teams Customer Support Assistant Relationship Specialty Start Date End Date Katelynn Guzman MD [address] [place] [address] PCP - General Family Medicine 10/26/13 Heena Howard, Luly [address] [place] [address] Pharmacist Internal Medicine 09/26/22 Jere Khoury MD [address] [place] [address] Hematology and Oncology 09/20/24 Susanna Garibay [address] [place] [address] Ophthalmology 10/29/24 Ghislaine Stone Psychiatry 10/26/24 documented as of this encounter
--- OUTSIDE RECORDS SUMMARY | 2024-11-15 12:05 | XMS_ITS | Encounter Summary ---
Author Organization [employer] Address [address] 7[address] [place] [address] Care Team Providers Care Photoengraver Name Role Phone Katelynn Guzman MD Primary Care Provider [phone]- [phone] Heena Howard PharmD Unavailable Jere Khoury MD Unavailable [phone] Susanna Garibay Unavailable Unavailable Reason for Visit * Reason Comments Med Refill Encounter Details Date Type Department Care Team (Late st Contact Info) Description 07/24/2023 Refill [facility] MED [facility] PEDS [address] [place] [address] Katelynn Guzman MD [address] [place] [address] Type 2 diabetes mellitus with diabetic neuropathy, with long-term current use of insulin (CMS/[facility]); Pain Social History Tobacco Use Types Packs/Day Years Used Date Smoking Tobacco: Former Cigarettes Passive Smoke Exposure: Past Smokeless Tobacco: Never Alcohol Use Standard Drinks/Week Comments Never 0 (1 standard drink = 0.6 oz pur e alcohol) Depression Answer Date Recorded Patient Health Questionnaire-9 Score 5 11/25/2022 Housing Stability Answer Date Recorded What is your housing situation today? I have tavoed caceres 07/28/[address] you [...] Description 11/18/2024 1:00 PM EST Nurse Only [facility] [address] [place] [address] 11/24/2024 2:00 PM EST Medication Management [address] [address] Heena Howard, PharmD [address] [place] [address] 12/13/2024 11:00 AM EST Office Visit [facility] [address] [place] [address] Katelynn Guzman MD [address] [place] [address] documented as of this encounter Goals Goal [...] documented as of this encounter Care Teams Photoengraver Relationship Specialty Start Date End Date Katelynn Guzman MD [address] [place] [address] PCP - General Family Medicine 10/26/13 Heena Howard PharmD [address] [place] [address] Pharmacist Internal Medicine 09/26/22 Jere Khoury MD [address] [place] [address] Hematology and Oncology 09/20/24 Susanna Garibay [address] [place] [address] Ophthalmology 10/29/24 Ghislaine Ritter Psychiatry 10/26/24 documented as of this encounter
--- OUTSIDE RECORDS SUMMARY | 2024-11-15 12:05 | XMS_ITS | Encounter Summary ---
Author Organization [employer] Address [address] 7t [place] [address] Care Team Providers Care Assembler Metal Furniture Name Role Phone Katelynn Guzman MD Primary Care Provider [phone] Heena Howard PharmD Unavailable Jere Khoury MD Unavailable [phone] Reason for Visit * Reason Comments Med Refill Encounter Details Date Type Department Care Team (Late st Contact Info) Description 10/21/2024 Refill [facility] MED [facility] PEDS [address] [place] [address] Collette Hunt MD [address] [facility] [place] [address] Hypertension, unspecified type Social History Tobacco Use [...] 11/18/2024 1:00 PM EST Nurse Only [address] [address] 11/24/2024 2:00 PM EST Medication Management [address] [address] Heena Howard, PharmD [address] [place] [address] 12/13/2024 11:00 AM EST Office Visit [address] [address] Katelynn Guzman MD [address] [place] [address] documented as of this encounter Goals Goal Patient Goal Type Associated Problems Recent Progress Patient-Stated? Author Hemoglobin A1c < 7 Result Component 8.4(09/28/2024 2:38 PM EST) No Heena Howard, PharmD documented as of this encounter Visit Diagnoses Diagnosis Hypertension, unspecified type Recurrent major depressive episodes, moderate ([facility]/HCC)- Primary Major depressive disorder, recurrent episode, moderate Dietary counseling Dietary surveillance and counseling Exercise counseling Class 3 severe obesity due to excess calories with serious comorbidity and body mass index (BMI) of 40.0 to 44.9 in adult (CMS/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) Vitamin B deficiency Unspecified vitamin B deficiency documented in this encounter Additional Health Concerns Assessment Noted Time PHQ-9 Depression Total Score: 9 07/28/20 24 4:10 PM EDT documented as of this encounter Care Teams Assembler Metal Furniture Relationship Specialty Start Date End Date Katelynn Guzman MD [address] [place] [address] PCP - General Family Medicine 10/26/13 Heena Howard, PharmD [address] [place] [address] Pharmacist Internal Medicine 09/26/22 Jere Khoury MD [address] [place] [address] Hematology and Oncology 09/20/24 documented as of this encounter
--- OUTSIDE RECORDS SUMMARY | 2024-11-15 12:05 | XMS_ITS | Encounter Summary ---
Author Organization [employer] Address [address] 7[address] [place] [address] Care Team Providers Care Naphtha Washing System Operator Name Role Phone Katelynn Guzman MD Primary Care Provider [phone]- [phone] Heena Howard PharmD Unavailable [phone] Jere Khoury MD Unavailable [phone] Encounter Details Date Type Department Care Team (Late st Contact Info) Description 10/21/2024 1:00 PM EST Nurse Only [facility] [address] [place] [address] Shakira Velez LPN B12 deficiency (Primary Dx) [...] on file. Preferred language for medical information: Sonar Subsystem Equipment Operator needed: No Standing Ordered verified: Yes, Bhavna [...] [facility] [address] [place] [address] 11/24/2024 2:00 PM EST Medication Management [address] [address] Heena Howard, PharmD [address] [place] [address] 12/13/2024 11:00 AM EST Office Visit [address] [address] Katelynn Guzman MD [address] [place] [address] documented as of this encounter Goals Goal [...] polyneuropathy, with long-term current use of insulin ([facility]) Vitamin B deficiency Unspecified vitamin B deficiency [...] documented as of this encounter Care Teams Naphtha Washing System Operator Relationship Specialty Start Date End Date Katelynn Guzman MD [address] [place] [address] PCP - General Family Medicine 10/26/13 Heena Howard, JosephD [address] [place] [address] Pharmacist Internal Medicine 09/26/22 Jere Khoury MD [address] [place] [address] Hematology and Oncology 09/20/24 documented as of this encounter
--- OUTSIDE RECORDS SUMMARY | 2024-11-15 12:05 | XMS_ITS | Encounter Summary ---
Author Organization [employer] Address [address] [place] [address] Care Team Providers Care Correspondence Transcriber Name Role Phone Katelynn Guzman MD Primary Care Provider [phone] Heena Howard PharmD Unavailable Jere Khoury MD Unavailable [phone] Susanna Garibay Unavailable Unavailable Reason for Visit * Reason Comments Med Refill Encounter Details Date Type Department Care Team (Late st Contact Info) Description 10/12/[address] [facility] MED [facility] PEDS [address] [place] [address] Katelynn Guzman MD [address] [place] [address] Pain; Chronic vaginitis Social History Tobacco Use [...] Description 11/18/2024 1:00 PM EST Nurse Only [address] [address] 11/24/2024 2:00 PM EST Medication Management [address] [address] Heena Howard, PharmD [address] [place] [address] 12/13/2024 11:00 AM EST Office Visit [address] [address] Katelynn Guzman MD [address] [place] [address] documented as of this encounter Goals Goal [...] polyneuropathy, with long-term current use of insulin ([facility]) Vitamin B deficiency Unspecified vitamin B deficiency documented in this encounter Additional Health Concerns Assessment Noted Time PHQ-9 Depression Total Score: 9 07/28/20 24 4:10 PM EDT documented as of this encounter Care Teams Correspondence Transcriber Relationship Specialty Start Date End Date Katelynn Guzman MD [address] [place] [address] PCP - General Family Medicine 10/26/13 Heena Howard, PharmD [address] [place] [address] Pharmacist Internal Medicine 09/26/22 Jere Khoury MD [address] [place] [address] Hematology and Oncology 09/20/24 Susanna Garibay [address] [place] [address] Ophthalmology 10/29/24 Ghislaine Ritter Psychiatry 10/26/24 documented as of this encounter
--- OUTSIDE RECORDS SUMMARY | 2024-11-15 12:05 | XMS_ITS | Encounter Summary ---
Author Organization [employer] Address [address] [place] [address] Care Team Providers Care Grooming Assistant Name Role Phone Katelynn Guzman MD Primary Care Provider [phone] Heena Howard PharmD Unavailable Jere Khoury MD Unavailable [phone] Susanna Garibay Unavailable Unavailable Reason for Visit * Reason Comments Med Refill Encounter Details Date Type Department Care Team (Late Contact Info) Description 06/30/2023 Refill [facility]EDS [address] [place] [address] Priscilla Long MD [address] [place] [address] Type 2 diabetes mellitus with diabetic neuropathy, with long-term current use of insulin ([facility]) Social History Tobacco Use Types Packs/Day Years [...] Description 11/18/2024 1:00 PM EST Nurse Only [address] [phone] 11/24/2024 2:00 PM EST Medication Management [address] [address] Heena Howard PharmD [address] [place] [address] 12/13/2024 11:00 AM EST Office Visit [address] [address] Katelynn Guzman MD [address] [place] [address] [phone] documented as of this encounter Goals Goal Patient Goal Type Associated Problems Recent Progress Patient-Stated? Author Hemoglobin A1c < 7 Result Component 8.4(09/28/2024 2:38 PM EST) No Heena Howard, PharmD documented as of this encounter Visit Diagnoses Diagnosis Type 2 diabetes mellitus with diabetic neuropathy, with long-term current use of insulin ([facility]) Recurrent major depressive episodes, moderate (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) Vitamin B deficiency Unspecified vitamin B deficiency documented in this encounter Additional Health Concerns Assessment Noted Time PHQ-9 Depression Total Score: 5 11/25/19 23 11:12 AM EST documented as of this encounter Care Teams Grooming Assistant Relationship Specialty Start Date End Date Katelynn Guzman MD [address] [place] [phone] PCP - General Family Medicine 10/26/13 Heena Howard, PharmD [address] [place] [address] Pharmacist Internal Medicine 09/26/22 Jere Khoury MD [address] [place] [address] Hematology and Oncology 09/20/24 Susanna Garibay [address] [place] [address] Ophthalmology 10/29/24 Ghislaine Stone Psychiatry 10/26/24 documented as of this encounter
--- OUTSIDE RECORDS SUMMARY | 2024-11-15 12:05 | XMS_ITS | Encounter Summary ---
Author Organization [facility] Address [address] [facility] 7t [place] [address] Care Team Providers Care Personal Carer Name Role Phone Katelynn Guzman MD Primary Care Provider [phone]- [phone] Heena Howard PharmD Unavailable Jere Khoury MD Unavailable [phone] Susanna Garibay Unavailable Unavailable Encounter Details Date Type Department Care Team ([facility] Contact Info) Description 06/26/2023 Abstract [facility] MEDICINE [address] [place] [phone] Katelynn Guzman MD [address] [place], [place] [phone] Social History Tobacco Use Types Packs/Day Years [...] 1:00 PM EST Nurse Only [facility] MEDICINE [address] [place] [address] 11/24/2024 2:00 PM EST Medication Management [facility] MEDICINE [address] [place] [phone] Heena Howard PharmD [address] [place] [address] 12/13/2024 11:00 AM EST Office Visit [facility] MEDICINE [address] [place] [address] Katelynn Guzman MD [address] [place] [address] documented as of this encounter Goals Goal [...] documented as of this encounter Care Teams Personal Carer Relationship Specialty Start Date End Date Katelynn Guzman MD [address] [place] [address] PCP - General Family Medicine 10/26/13 Heena Howard PharmD [address] [place] [address] Pharmacist Internal Medicine 09/26/22 Jere Khoury MD [address] [place] [address] Hematology and Oncology 09/20/24 Susanna Garibay [address] [place] [address] Ophthalmology 10/29/24 Ghislaine Stone Psychiatry 10/26/24 documented as of this encounter
--- OUTSIDE RECORDS SUMMARY | 2024-11-15 12:06 | XMS_ITS | Clinical Summary ---
Author Organization [facility] Address [address] [place] [address] Care Team Providers Care Customer Experience Consultant Name Role Phone Katelynn Guzman MD Primary Care Provider [phone] Allergies Active Allergy Reactions Criticality Noted Date [...] of this. Carpal tunnel education information in Lebanese was provided to the patient. Patient was [...] Comments Diabetes mellitus with insul in therapy ([facility]) 09/22/2012 DX:Diabetes mellitus with in sulin therapy ([facility]) Hypothyroid 09/22/2012 DX:Hypothyroid Pure hypercholesterolemia 09/22/2012 DX:Pur [...] PM EST Office Visit Orthopedic Surgery - [place] [phone] [phone] Jose Wilder, DPM [address] [address] Health Maintenance Due Date Last Done Comments [...] Recently Relevant to Health Maintenance Care Teams Customer Experience Consultant Relationship Specialty Start Date End Date MeganKatelynn wahl MD [address] [place] [address] [place] [phone] PCP - General Internal Medicine 09/19/20
--- OUTSIDE RECORDS SUMMARY | 2024-11-15 12:06 | XMS_ITS | Encounter Summary ---
Author Organization [employer] Address [address] [facility] [address] [facility] [address] 7[address] [place] [address] Care Team Providers Care Early Education Teacher Name Role Phone Katelynn Guzman MD Primary Care Provider [phone] Heena Howard PharmD Unavailable [phone] Jere Khoury MD Unavailable [phone] Susanna Garibay Unavailable Unavailable Encounter Details Date Type Department Care Team (Late st Contact Info) Description 11/12/2024 Orders Only GENERIC EXTERNAL DATA DEPARTMENT Provider, Generic External Data Social History Tobacco Use Types Packs/Day Years [...] Description 11/18/2024 1:00 PM EST Nurse Only [address] [address] 11/24/2024 2:00 PM EST Medication Management [address] [address] Heena Howard, PharmD [address] [place] [phone] 12/13/2024 11:00 AM EST Office Visit [address] [address] Katelynn Guzman MD [address] [place] [phone] documented as of this encounter Goals Goal Patient Goal Type Associated Problems Recent Progress Patient-Stated? Author Hemoglobin A1c < 7 Result Component 8.4(09/28/2024 2:38 PM EST) No Heena Howard, PharmD documented as of this encounter Procedures Procedure Name Priority Date/Time Associated Diagnosis Comments ALBUMIN, RANDOM URINE W/CREATININE Routine 11/12/2024 12:33 PM EST TSH W/REFLEX TO FT4 Routine 11/12/2024 1 2:31 PM EST CBC WITH AUTO DIFFERENTIAL Routine 11/12/2024 12:31 PM EST T4, FREE Routine 11/12/2024 12:31 PM EST COMPREHENSIVE METABOLIC PANEL Routine 11/12/2024 12:31 PM EST documented in this encounter Results * (ABNORMAL) Albumin, Random Urine W/Creatinine (11/12/2024 12:33 PM EST) Creatinine, Urine 151.44 mg/dL [facility] Microalbumin Urine 134.0 mg/L [facility] Microalbum Creatinine Ratio Ur 88.4(H) <30 ug/mg cr [facility] Comment:Albumin/Creatinine R atio Reference Ranges: Normal: < 30 ug/mg creatinine Microalbuminuria: 30 - 300 ug/mg creatinineClinical Albuminuria: > 300 ug/mg creatinine 11/12/2024 12:3 3 PM EST 11/12/2024 1:45 PM EST us Katelynn Guzman MD LAB URINE ORDERABLES Final Result Performing Organization Address [facility] Co de Phone Number [facility] [address] [place] [phone] * T4, Free (11/12/2024 12:31 PM EST) Free T4 (Free Thyroxine) 1.21 0.71 - 1.85 ng/dL [facility] 11/12/2024 12:3 1 PM EST 11/12/2024 12:38 PM EST us Zee SÁNCHEZ LAB BLOOD ORDERABLES Final Resul t Performing Organization Address City/[facility] Co de Phone Number [facility] [address] [place] [phone] * (ABNORMAL) TSH with Reflex to Free T4 (11/12/2024 12:31 PM EST) TSH reflex Free T4 4.98(H) 0.32 - 4.0 uIU/mL [facility] 11/12/2024 12:3 1 PM EST 11/12/2024 12:38 PM EST [facility] LAB BLOOD ORDERABLES Final Resul t [facility] [address] [place] [address] [phone] * (ABNORMAL) Comprehensive Metabolic Panel (11/12/2024 12:31 PM EST) Sodium 139 135 - 145 mmol/L [facility] Potassium 4.2 3.3 - 5.1 mmol/L [facility] Chloride 101 96 - 108 mmol/L [facility] Carbon Dioxide 29 22 - 29 mmol/L [facility] Anion Gap 13 12 - 20 [facility] Urea Nitrogen (BUN) 15 9 - 16 mg/dL [facility] Creatinine, Serum 0.97 0.5 - 1.4 mg/dL [facility] Estimated Glomerular Filt Rate 58 [facility] Comment:Chronic Kidney Disea se: Estimated GFR < 60 mL/min/[id number] Kidney Disease: Estimated GFR < 15 mL/min/1.73m2 Glucose 254(H) 60 - 115 mg/dL [facility] Calcium 9.2 8.4 - 10.2 mg/dL [facility] Bilirubin, Total 0.3 0.0 - 1.0 mg/dL [facility] Aspartate Amino Transferase 34(H) 5 - 31 U/L [facility] Alanine Aminotransferase 35(H) 0 - 31 U/L [facility] Total Protein 7.4 6.5 - 8.0 g/dL [facility] Albumin Level 4.0 3.5 - 5.0 g/dL [facility] Alkaline Phosphatase 114 39 - 117 U/L [facility] 11/12/2024 12:3 1 PM EST 11/12/2024 12:38 PM EST us Generic External Data Provider LAB BLOOD ORDERAB LES Final Result [facility] [address] [place] [phone] [phone] * (ABNORMAL) CBC auto differential (11/12/2024 12:31 PM EST) White Blood Count 6.1 4.8 - 10.8 X10*3/uL [facility] Red Blood Count 4.79 4.20 - 5.50 X10*6/uL [facility] Hemoglobin 12.5 12.0 - 16.0 g/dl [facility] Hematocrit 39.2 37.0 - 47.0 % [facility] Mean Corpuscular Volume 81.8 80.0 - 98.0 fL [facility] Mean Corpuscular Hemoglobin 26.1(L) 27.0 - 33.0 pg [facility] Mean Corpuscular HGB Conc 31.9 31.0 - 35.0 g/dl [facility] Red Cell Distribution Width 14.0 11.0 - 16.0 % [facility] Platelet Count 122(L) 160 - 400 X10*3/uL [facility] Mean Platelet Volume 13.4(H) 9.4 - 12.3 fL [facility] Neutrophils Percent Auto 66.9 45 - 73 % [facility] Imm Gran Pct Auto 0.7(H) 0.0 - 0.4 % [facility] Lymphocytes Percent Auto 16.7(L) 20 - 40 % [facility] Monocytes Percent Auto 10.3 2 - 11 % [facility] Eosinophils Percent Auto 4.7(H) 0 - 4 % [facility] Basophils Percent Auto 0.7 0 - 2 % [facility] NRBC Pct Auto 0.0 0.0 - 0.2 /100WBC [facility] Neutrophils Absolute Auto 4.1 2.0 - 8.3 x10*3/uL [facility] Imm Gran Abs Auto 0.04(H) 0.00 - 0.03 X10*3/uL [facility] Lymphocytes Absolute Auto 1.0(L) 1.2 - 4.9 X10*3/uL [facility] Monocytes Absolute Auto 0.6 0.1 - 1.2 X10*3/uL [facility] Eosinophils Absolute Auto 0.3 0.0 - 0.4 X10*3/uL [facility] Basophils Absolute Auto 0.0 0.0 - 0.2 X10*3/uL [facility] NRBC Abs Auto 0.000 0.0 - 0.012 X10*3/uL [facility] 11/12/2024 12:3 1 PM EST 11/12/2024 12:38 PM EST us Generic External Data Provider LAB BLOOD ORDERAB LES Final Result Performing Organization Address City/State/[facility] Co de Phone Number [facility] [address] [place] [phone] documented in this encounter Visit Diagnoses Not on filedocumented in this encounter Additional Health Concerns Assessment Noted Time PHQ-9 Depression Total Score: 9 07/28/20 24 4:10 PM EDT documented as of this encounter Care Teams Early Education Teacher Relationship Specialty Start Date End Date Katelynn Guzman MD [address] [place] [address] PCP - General Family Medicine 10/26/13 Heena Howard PharmD [address] [place] [address] Pharmacist Internal Medicine 09/26/22 Jere Khoury MD [address] [place] [address] [phone] Hematology and Oncology 09/20/24 Susanna Garibay [address] [place], [place] [phone] Ophthalmology 10/29/24 Ghislaine Ritter Psychiatry 10/26/24 documented as of this encounter
== END 2024-11-15 11:30 | disposition home or self-care (01) ==
PROVIDERS: PCP Family Medicine; Visit Provider Nurse Practitioner Family
DX: J45.909 Unspecified asthma, uncomplicated (principal); R06.09 Other forms of dyspnea; R40.0 Somnolence
CPT/HCPCS: 99214

== ENCOUNTER → 2024-11-15 10:57 | Outpatient (BNVA) | payer MEDICAID, SELFPAY | PROVIDERS: PCP Family Medicine; Visit Provider Nurse Practitioner Family | DX: J45.909 Unspecified asthma, uncomplicated (principal); R06.09 Other forms of dyspnea; R40.0 Somnolence | CPT/HCPCS: 99212 ==

== ENCOUNTER 2024-11-23 23:40 | Emergency (ER) | payer MEDICAID, SELFPAY ==
--- NOTE | ~2024-11-23 | CT_ITS ---
CLINICAL HISTORY: sbo? CT abdomen and pelvis without contrast Comparison: CT/SR - CT ABDOMEN PELVIS W IV CON - 06/09/24 16:02 EDT Findings: Small hiatal hernia. Cardiomegaly without significant pericardial effusion. Coronary artery calcifications. Hepatomegaly with steatosis. Bilateral thickening of the adrenal glands/hyperplasia similar to prior, nonspecific. Bilateral perinephric stranding, nonspecific. Nonobstructive 2 mm calculus in the left lower pole kidney. No bowel obstruction, pneumoperitoneum, or pneumatosis. Post hysterectomy. Scattered colonic diverticulosis without diverticulitis or colitis. Normal appendix. Mildly distended bladder with mural thickening, nonspecific. Thoracic diffuse idiopathic skeletal hyperostosis. Osteoarthritic changes in the hips. L5 pars defects with mild grade 1 anterolisthesis at L5-S1. Diffuse atheromatous plaque disease throughout the aorta and branch vessels, without aneurysmal dilatation. IMPRESSION: Nonobstructive 2 mm calculus in the left lower pole kidney. This document has been electronically signed by: Luis F Gallagher MD on 11/24/2024 04:14:42
[2024-11-23 23:55] VITALS: BP 158/70; PULSE 107; O2SAT 97
[2024-11-24 00:08] VITALS: BP 133/59; PULSE 100; RESP 18; TEMP 36.7; O2SAT 97; BMI 39.3
[2024-11-24 00:38] LABS: MANUAL DIFF FLAG NO
[2024-11-24 00:42] LABS: Basophils Absolute Auto 0.1 X10*3/uL (0.0-0.2); Basophils Percent Auto 0.5 % (0-2); Eosinophils Absolute Auto 0.4 X10*3/uL (0.0-0.4); Eosinophils Percent Auto 3.1 % (0-4); Hematocrit 43.2 % (37.0-47.0); Hemoglobin 14.2 g/dl (12.0-16.0); Imm Gran Abs Auto 0.04 X10*3/uL (0.00-0.03); Imm Gran Pct Auto 0.3 % (0.0-0.4); Lymphocytes Absolute Auto 1.4 X10*3/uL (1.2-4.9); Lymphocytes Percent Auto 10.6 % (20-40); Mean Corpuscular HGB Conc 32.9 g/dl (31.0-35.0); Mean Platelet Volume 12.8 fL (9.4-12.3); Monocytes Percent Auto 7.7 % (2-11); Neutrophils Absolute Auto 9.9 x10*3/uL (2.0-8.3); Neutrophils Percent Auto 77.8 % (45-73); Platelet Count 150 X10*3/uL (160-400); Red Blood Count 5.47 X10*6/uL (4.20-5.50); Red Cell Distribution Width 14.4 % (11.0-16.0); White Blood Count 12.8 X10*3/uL (4.8-10.8)
[2024-11-24 00:52] LABS: Alanine Aminotransferase 26 U/L (0-31); Albumin Level 4.2 g/dL (3.5-5.0); Alkaline Phosphatase 80 U/L (39-117); Anion Gap 18 (12-20); Aspartate Amino Transferase 30 U/L (5-31); Bilirubin Total 0.3 mg/dL (0.0-1.0); Blood Urea Nitrogen 14 mg/dL (9-16); Calcium 9.8 mg/dL (8.4-10.2); Carbon Dioxide 26 mmol/L (22-29); Chloride 99 mmol/L (96-108); Creatinine Clr Calc Pharmacy 62.7; Estimated Glomerular Filt Rate > 60; Glucose Random 129 mg/dL (60-115); Lipase 66 U/L (8-78); Potassium 3.8 mmol/L (3.3-5.1); Sodium 139 mmol/L (135-145); Total Protein 8.1 g/dL (6.5-8.0)
[2024-11-24 01:02] LABS: Troponin-I High Sensitivity < 2.7 ng/L (<3.5-17.0)
[2024-11-24 01:36] LABS: Appearance Urine Cloudy; Color Urine Yellow; Glucose Urine UA Negative (Negative); Leukocyte Esterase Urine Small (1+) (Negative); Nitrite Urine Negative (Negative); PH 6.5 (5.0-9.0); Specific Gravity - Urine <= 1.005 (1.005-1.025); UMIC TRIGGER UACC YES; Urine Blood Negative (Negative); Urine Ketones Negative (Negative); Urine Protein Trace mg/dL (Neg-Trace)
[2024-11-24 01:39] LABS: Bacteria Urine 1+ (None Seen); Hyaline Casts Urine 0-2 /LPF (0-2); RBC Urine 0-2 /HPF (0-2); Squamous Epithelial Cell Urine >20 /HPF (0-2); UACC Culture Trigger YES
--- NOTE | 2024-11-24 02:39 | ED_ITS ---
HPI - Abdominal Pain General Chief Complaint: Abdominal Pain Stated Complaint: Ab pain x2days, Nausea, no food, no bowel movement Time Seen by Provider: 11/24/24 02:23 Source: patient Mode of arrival: ambulatory Limitations: no limitations History of Present Illness ED Provider: HPI narrative: Patient is 59 years old with past medical history of hypothyroidism CAD diabetes fibromyalgia GERD hypotension IBS obesity ITP comes here for abdominal pain which is going on for last 2 days does have history of IBS at does get this kind of pain off and on patient has been to drink liquids but unable take solids because of severe nausea no fever no chills Related Data Home Medications ?Medication ?Instructions ?Recorded ?Confirmed cetirizine 10 mg tablet 10 mg PO DAILY 07/18/20 11/16/24 clonazepam 1 mg tablet 1 mg PO BID 07/18/20 11/16/24 cyanocobalamin (vitamin B-12) 1,000 mcg IM QMONTH 07/18/20 11/16/24 1,000 mcg/mL injection solution levothyroxine 137 mcg capsule 137 mcg PO DAILY@0600 07/18/20 11/16/24 (Tirosint) lisinopril 2.5 mg tablet 2.5 mg PO DAILY 07/18/20 11/16/24 omeprazole 20 mg capsule,delayed 20 mg PO DAILY 07/18/20 11/16/24 release acetaminophen 500 mg tablet 1,000 mg PO QID PRN Pain 08/25/20 11/16/24 (Tylenol Extra Strength) dicyclomine 10 mg capsule 20 mg PO TID 12/11/20 11/16/24 cyclobenzaprine 10 mg tablet 10 mg PO BEDTIME PRN Muscle Spasms 12/26/20 11/16/24 aspirin 81 mg tablet,delayed 81 mg PO DAILY 07/03/21 11/16/24 release (Adult Low Dose Aspirin) cholecalciferol (vitamin D3) 50 50 mcg PO DAILY 07/03/21 11/16/24 mcg (2,000 unit) capsule zolpidem 10 mg tablet 10 mg PO BEDTIME 07/03/21 11/16/24 duloxetine 20 mg capsule,delayed 40 mg PO BEDTIME 06/08/24 11/16/24 release glucagon 3 mg/actuation nasal 3 mg intranasal DIRECTED 06/08/24 11/16/24 spray (Baqsimi) hydrochlorothiazide 12.5 mg tablet 12.5 mg PO DAILY 06/08/24 11/16/24 insulin glargine U-300 conc 300 120 unit subcut DAILY 06/08/24 11/16/24 unit/mL (3 mL) subcutaneous pen (Toujeo Max U-300 SoloStar) insulin lispro 100 unit/mL 1 sliding scale dose subcut 06/08/24 11/16/24 subcutaneous pen USEASDIRECTD ketotifen fumarate 0.025 % (0.035 1 drp ophthalmic (eye) BID PRN 06/08/24 11/16/24 %) eye drops (Eye Itch Relief) Itchiness quetiapine 300 mg tablet 300 mg PO BEDTIME 06/08/24 11/16/24 sennosides 8.6 mg-docusate sodium 1 tab-cap PO DAILY 06/08/24 11/16/24 50 mg tablet (Senna Plus) tacrolimus 0.1 % topical ointment 1 appl topical BID PRN Flares 06/08/24 11/16/24 tirzepatide 5 mg/0.5 mL 10 mg subcut QWEEK 06/08/24 11/16/24 subcutaneous pen injector (Mounjaro) tirzepatide 12.5 mg/0.5 mL 12.5 mg subcut QWEEK 11/15/24 11/16/24 subcutaneous pen injector (Mounjaro) Previous Rx's ?Medication ?Instructions ?Recorded pen needle, diabetic 32 gauge x #100 ea 01/09/22 5/32 (BD Karla 2nd Gen Pen Needle) blood sugar diagnostic (FreeStyle #100 ea 06/28/22 Lite Strips) lancets 28 gauge (FreeStyle #100 ea 06/28/22 Lancets) ferrous sulfate 325 mg (65 mg 325 mg PO DAILY #90 tabs 09/22/23 iron) tablet atorvastatin 80 mg tablet 80 mg PO DAILY 90 days #90 tabs 10/16/23 ondansetron 8 mg disintegrating 8 mg PO Q8H #30 tabs 10/12/24 tablet tramadol 25 mg tablet 25 mg PO Q6H PRN Breakthrough 11/04/24 Pain, Moderate #30 tabs fluticasone furoate 100 1 inh inhalation DAILY #60 ea 02/03/25 mcg-vilanterol 25 mcg/dose inhalation powder (Breo Ellipta) tramadol 50 mg tablet 50 mg PO Q8-10H PRN pain #15 tabs 11/24/24 Allergies Allergy/AdvReac Type Severity Reaction Status Date / Time ibuprofen [IBUPROFEN] Allergy Mild RASH Verified 11/24/24 00:10 [facility] Past Medical History Medical History (Updated 11/25/24 @ 00:02 by Vicente Burnett) Chronic ITP (idiopathic thrombocytopenia) Left hand weakness Leukocytosis CAD (coronary artery disease) Migraines Anxiety and depression IBS (irritable bowel syndrome) Sleep apnea Obesity due to excess calories Atherosclerotic cardiovascular disease Vitamin D deficiency Obesity (BMI 30-39.9) Dyslipidemia Diabetic nephropathy associated with type 2 diabetes mellitus long-term (current) use of insulin Diabetes type 2, uncontrolled Chronic ITP (idiopathic thrombocytopenia) Asthma Pernicious anemia Diabetes mellitus Fibromyalgia GERD (gastroesophageal reflux disease) Hypertension Adult hypothyroidism Chronic ITP (idiopathic thrombocytopenia) Surgical History H/O colonoscopy Hx of cataract surgery H/O: hysterectomy Family History Family History Mother Diabetes Sister Stomach cancer Father Brother Colon cancer Brother Pancreas cancer Social History Social History Household Members: Spouse Housing: Apartment Are you a primary neonatal intensive care unit nurse to a significant other at home: No Do you presently have visiting nurse or other home services: Yes Alcohol intake: current Alcohol intake frequency: does not drink Patient Tobacco Use Status: Former Tobacco user Tobacco use type: Cigarette service: No Current occupational status: unemployed Current occupation: she lives with her . Current occupational exposures/hazards: No Physical Exam ED Vital Signs: Vital Signs - 24 hr 11/24/24 04:00 11/24/24 06:00 11/24/24 06:27 Temperature 97.6 F 97.6 F 97.6 F Pulse Rate 93 88 88 Respiratory Rate 16 16 16 Blood Pressure 144/63 H 138/60 138/60 Pulse Oximetry 93 94 94 Oxygen Delivery Method Room Air Room Air Room Air BMI result Body Mass Index 39.3 Appearance: Alert. Oriented X3. No acute distress. Eyes: PERRLA, No Nystagmus ENT: Pharynx normal. Oral Mucosa moist Neck: Normal inspection. Neck supple. CVS: Normal heart rate and rhythm. Pulses normal. Respiratory: No respiratory distress. Equal air entry bilateral, no wheezing/rales/rhonchi Abdomen: Soft and mild epigastric tenderness Bowel sounds are present, no mass palpable, no CVA tenderness Skin: Skin warm and dry. Normal skin color. Normal skin turgor. Extremities: No lower extremity edema. No calf tenderness Neuro: Oriented X 3. No motor deficit. No sensory deficit.No cerebellar signs , cranial nerves II-XII intact Medical Decision Making Medical Decision Making [facility] Narrative: Patient nonspecific abdominal pain with history of IBS already on dicyclomine will give a short course of tramadol chronic pain Lab Data [facility] Lab Attestation statement: I reviewed the patient's lab results. 11/24/24 00:34 11/24/24 00:34 Labs: Lab Results 11/24/24 11/24/24 11/24/24 Range/Units 00:34 01:30 04:17 WBC 12.8 H (4.8-10.8) X10*3/uL RBC 5.47 (4.20-5.50) X10*6/uL Hgb 14.2 (12.0-16.0) g/dl Hct 43.2 (37.0-47.0) % MCV 79.0 L (80.0-98.0) fL MCH 26.0 L (27.0-33.0) pg MCHC 32.9 (31.0-35.0) g/dl RDW 14.4 (11.0-16.0) % Plt Count 150 L (160-400) X10*3/uL MPV 12.8 H (9.4-12.3) fL Immature Gran % (Auto) 0.3 (0.0-0.4) % Neut % (Auto) 77.8 H (45-73) % Lymph % (Auto) 10.6 L (20-40) % Ballard % (Auto) 7.7 (2-11) % Eos % (Auto) 3.1 (0-4) % Baso % (Auto) 0.5 (0-2) % Lymph # (Auto) 1.4 (1.2-4.9) X10*3/uL Ballard # (Auto) 1.0 (0.1-1.2) X10*3/uL Eos # (Auto) 0.4 (0.0-0.4) X10*3/uL Baso # (Auto) 0.1 (0.0-0.2) X10*3/uL Abs Immat Gran (auto) 0.04 H (0.00-0.03) X10*3/uL Absolute Neuts (auto) 9.9 H (2.0-8.3) x10*3/uL Absolute Nucleated RBC 0.000 (0.0-0.012) X10*3/uL Nucleated RBC % (auto) 0.0 (0.0-0.2) /100WBC Sodium 139 (135-145) mmol/L Potassium 3.8 (3.3-5.1) mmol/L Chloride 99 (96-108) mmol/L Carbon Dioxide 26 (22-29) mmol/L Anion Gap 18 (12-20) BUN 14 (9-16) mg/dL Creatinine 0.91 (0.5-1.4) mg/dL Estim Creat Clear Calc 62.7 Estimated GFR > 60 Random Glucose 129 H (60-115) mg/dL Lactic Acid 1.2 (0.5-2.0) mmol/L Calcium 9.8 D (8.4-10.2) mg/dL Total Bilirubin 0.3 (0.0-1.0) mg/dL AST 30 (5-31) U/L ALT 26 (0-31) U/L Alkaline Phosphatase 80 (39-117) U/L Troponin I High Sens < 2.7 (<3.5-17.0) ng/L Total Protein 8.1 H (6.5-8.0) g/dL Albumin 4.2 (3.5-5.0) g/dL Lipase 66 (8-78) U/L Urine Color Yellow Urine Appearance Cloudy Urine pH 6.5 (5.0-9.0) Ur Specific [place]ter[place] <= 1.005 (1.005-1.025) Urine Protein Trace (Neg-Trace) mg/dL Urine Glucose (UA) Negative (Negative) mg/dL Urine Ketones Negative (Negative) mg/dL Urine Blood Negative (Negative) Urine Nitrite Negative (Negative) Ur Leukocyte Esterase Small (1+) H (Negative) Urine RBC 0-2 (0-2) /HPF Urine WBC 11-20 H (0-5) /HPF Ur Squamous Epith Cells >20 (0-2) /HPF Urine Bacteria 1+ (None Seen) Hyaline Casts 0-2 (0-2) /LPF Medications Administered Discontinued Medications Generic Name Dose Route Start Last Admin Trade Name Freq PRN Reason Stop Dose Admin Sodium Chloride 1,000 mls @ 999 mls/hr 11/24/24 03:33 11/24/24 04:55 Ns IV 11/24/24 04:33 Infused .Q1H1M ONE Infusion Morphine Sulfate 4 mg 11/24/24 03:33 11/24/24 03:52 Morphine Sulfate 4 Mg/Ml Cartridge IVPUSH 11/24/24 03:34 4 mg ONCE ONE Administration Protocol Ondansetron HCl 4 mg 11/24/24 03:33 11/24/24 03:52 Ondansetron Hcl 4 Mg/2 Ml Vial IVPUSH 11/24/24 03:34 4 mg ONCE ONE Administration Discharge Plan Discharge Clinical Impression: IBS (irritable bowel syndrome) Patient Disposition: Home, Self-Care Instructions: Irritable Bowel Syndrome (ED) Additional Instructions: Drink plenty of fluids Avoid foods as advised by outreach representative Tramadol for severe pain Prescriptions: New tramadol 50 mg tablet 50 mg PO Q8-10H PRN (Reason: pain) Qty: 15 0RF No Action (DME) pen needle, diabetic [BD Karla 2nd Gen Pen Needle] 32 gauge x 5/32 needle See Rx Instructions .MEDSUPPLY Qty: 100 11RF Rx Instructions: Twice a day (DME) FreeStyle Lite Strips Strip See Rx Instructions .ROUTE .MEDSUPPLY Qty: 100 11RF Rx Instructions: As directed four times a day (DME) lancets [FreeStyle Lancets] 28 gauge misc See Rx Instructions .ROUTE .MEDSUPPLY Qty: 100 11RF Rx Instructions: 4 times a day ferrous sulfate 325 mg (65 mg iron) Tablet 325 mg PO DAILY Qty: 90 6RF atorvastatin 80 mg tablet 80 mg PO DAILY 90 Days Qty: 90 0RF Rx Instructions: OVERDUE FOR APPT. PLEASE CALL [phone] TO SCHEDULE AN APPT SO WE CAN REFILL THIS MED. You can also opt to get future refills from your PCP. Thank you. cetirizine 10 mg Tablet 10 mg PO DAILY clonazepam 1 mg Tablet 1 mg PO BID cyanocobalamin (vitamin B-12) 1,000 mcg/mL Solution 1,000 mcg IM QMONTH omeprazole 20 mg Capsule,Delayed Release(Dr/Ec) 20 mg PO DAILY lisinopril 2.5 mg Tablet 2.5 mg PO DAILY levothyroxine [Tirosint] 137 mcg Capsule 137 mcg PO DAILY@0600 acetaminophen [Tylenol Extra Strength] 500 mg Tablet 1,000 mg PO QID PRN (Reason: Pain) dicyclomine 10 mg Capsule 20 mg PO TID ondansetron 8 mg Tablet,Disintegrating 8 mg PO Q8H Qty: 30 2RF tramadol 25 mg Tablet 25 mg PO Q6H PRN (Reason: Breakthrough Pain, Moderate) Qty: 30 0RF ketotifen fumarate [Eye Itch Relief] 0.025 % (0.035 %) Drops 1 drp OPHTHALMIC (EYE) BID PRN (Reason: Itchiness) Rx Instructions: administer at least 8 hours apart tacrolimus 0.1 % Ointment 1 appl TOPICAL BID PRN (Reason: Flares) insulin lispro 100 unit/mL Insulin Pen 1 sliding scale dose SUBCUT USEASDIRECTD Rx Instructions: Inject 46 units before lunch and 54 units before dinner. duloxetine 20 mg Capsule,Delayed Release(Dr/Ec) 40 mg PO BEDTIME insulin glargine U-300 conc [Toujeo Max U-300 SoloStar] 300 unit/mL (3 mL) Insulin Pen 120 unit SUBCUT DAILY Baqsimi 3 mg/actuation [place],Non-Aerosol 3 mg INTRANASAL DIRECTED Rx Instructions: For Low Blood Sugar Emergency Mounjaro 5 mg/0.5 mL pen injector 10 mg subcut QWEEK quetiapine 300 mg Tablet 300 mg PO BEDTIME hydrochlorothiazide 12.5 mg Tablet 12.5 mg PO DAILY sennosides-docusate sodium [Senna Plus] 8.6-50 mg Tablet 1 tab-cap PO DAILY cyclobenzaprine 10 mg tablet 10 mg PO BEDTIME PRN (Reason: Muscle Spasms) zolpidem 10 mg tablet 10 mg PO BEDTIME cholecalciferol (vitamin D3) 50 mcg (2,000 unit) capsule 50 mcg PO DAILY aspirin [Adult Low Dose Aspirin] 81 mg tablet,delayed release (DR/EC) 81 mg PO DAILY Mounjaro 12.5 mg/0.5 mL pen injector 12.5 mg subcut QWEEK fluticasone furoate-vilanterol [Breo Ellipta] 100-25 mcg/dose blister with device 1 inh inhalation DAILY Qty: 60 4RF Interventions: ED Discharge Assessment Last Done: 11/24/24 06:27 Discharge Date/Time: 11/24/24 06:28 Print Language: Romanian
[2024-11-24] MEDS: ondansetron HCL 4 MG/2 ML VIAL IVPUSH (03:52)
[2024-11-24] MEDS: 0.9 % Sodium Chloride 1,000 ML 999 ML IV (03:52)
[2024-11-24] MEDS: Morphine Sulfate 4 MG/ML CARTRIDGE IVPUSH (03:52)
[2024-11-24 04:00] VITALS: BP 144/63; PULSE 93; RESP 16; TEMP 36.4; O2SAT 93
[2024-11-24 04:55] LABS: Lactic Acid 1.2 mmol/L (0.5-2.0)
[2024-11-24 06:00] VITALS: BP 138/60; PULSE 88; RESP 16; TEMP 36.4; O2SAT 94
[2024-11-24 06:27] VITALS: BP 138/60; PULSE 88; RESP 16; TEMP 36.4; O2SAT 94
== END 2024-11-24 06:28 | disposition home or self-care (01) ==
PROVIDERS: Emergency Provider Internal Medicine; PCP Family Medicine
DX: K58.9 Irritable bowel syndrome, unspecified (principal); R10.2 Pelvic and perineal pain; R11.2 Nausea with vomiting, unspecified; I25.10 Atherosclerotic heart disease of native coronary artery without angina pectoris; Z79.899 Other long term (current) drug therapy
CPT/HCPCS: 36415; 74176; 80053; 81001; 83605; 83690; 84484; 85025; 87086; 96361; 96374; 96375; 99284; J2270; J2405

== ENCOUNTER → 2024-11-24 03:32 | Outpatient (BNV) | payer MEDICAID, SELFPAY | PROVIDERS: Emergency Provider Internal Medicine; PCP Family Medicine; Visit Provider Radiology Diagnostic Radiology | DX: N20.0 Calculus of kidney (principal) | CPT/HCPCS: 74176 ==

== ENCOUNTER → 2024-12-02 13:21 | Outpatient (BNVA) | payer MEDICAID, SELFPAY | PROVIDERS: PCP Family Medicine; Visit Provider Nurse Practitioner Family | DX: J45.909 Unspecified asthma, uncomplicated (principal) | CPT/HCPCS: 94618 ==

== ENCOUNTER 2025-04-11 14:51 | Outpatient (AMB) | payer MEDICAID, SELFPAY ==
--- OUTSIDE RECORDS SUMMARY | 2023-11-10 05:30 | XMS_ITS ---
Author Organization [facility] Address [address] [place] [address] Care Team Providers Care Deputy Program Manager Name Role Phone Katelynn Guzman MD Primary Care Provider Harika Michael Wells Unavailable [phone] REASON FOR VISIT screening,fam hx colon ca Problems Problem Type SNOMED Code ICD Code Onset Dates Problem Status W/U Status Risk Notes Problem Diverticular disease of colon (760918103) Diverticulosis of large intestine without perforation or abscess without bleeding (K57.30) Active confirmed Encounters Encounter Location Date Provider Diagnosis [facility] [address], [place] [id number] 11/10/2023 Michael Robertson Encounter for scre ening colonoscopy Z12.11 ; Family history of colon cancer Z80.0 ; Diverticulosis of large intestine without perforation or abscess without bleeding K57.30 and Other hemorrhoids K64.8 Assessments Encounter Date Diagnosis (ICD Code) Assessment Notes Treatment Notes Treatment Clinical Notes Section Notes 11/10/2023 Encounter for screening colonoscopy (ICD-10 - Z12.11) 11/10/2023 Family history of colon cancer (ICD-10 - Z80.0) 11/10/2023 Diverticulosis of large intestine without perforation or abscess without bleeding (ICD-10 - K57.30) 11/10/2023 Other hemorrhoids (ICD-10 - K64.8) Plan Of Treatment No Information Progress Notes * JESSICA LASTDOB:[birth year] (59 yo F)Acc No.[id number]:11/10/2023 COLON WITH MAC Patient: Sara JESSICA MERCADO Provider: Chaitanya Robertson MD :1965 A ge:58 Y S ex:Female Date:11/10/2023 Address:[address] [place], [place] [id number] Pcp:Katelynn Guzman MD Subjective: * Chief Complaints: * 1 . Screening,fam hx colon ca. * Medical History: Objective: * Vitals: Assessment: * Assessment: 1. E ncounter for screening colonoscopy - Z12.11 (Primary) 2 . F amily history of colon cancer - Z80.0 3 . D iverticulosis of large intestine without perforation or abscess without bleeding - K57.30 4 . O ther hemorrhoids - K64.8 ? Plan: * Treatment: * Procedure Codes: 4 5378 DIAGNOSTIC COLONOSCOPY * * The named appointment provid er may or may not be the originator of this progress note, and it is not deemed complete until electronically signed by the appointment provider. Sign off status: Pending * Provider: Chaitanya Robertson MD Date: 0 11/10/2023 Generated for Shai teixeira/Monica/Stevesmitting on: 0 04/11/2025 03:17 PM EDT
--- NOTE | 2025-04-11 14:54 | MHC.OFFVIS ---
Vital Signs 04/11/25 14:55 Height 4 ft 11 in Weight 206 lb 2.115 oz BMI 41.6 BP 116/58 L Blood Pressure Location Rt brachial Position Sitting Pulse 80 Pulse Source Pulse Oximeter Pulse Oximetry (%) 97 Oxygen Delivery Method Room Air Intake Visit Reasons: Dyspnea Chemist Intern Required: Yes Chemist Intern Language: X Ray Developing Machine Operator Services: Chemist Intern Present Chemist Intern Name: Katelynn No LM Allergies ibuprofen (IBUPROFEN) Allergy (Mild, Verified 04/11/25 14:58) RASH HPI HPI Dyspnea: Details: Bhavna is a pleasant 59 year old female, former smoker, quit 30 years ago with 45+pyh with underlying asthma, hypothyroidism, CAD, diabetes, fibromyalgia, GERD, hypertension, IBS, obesity, and ITP. She was initially referred by ED after being admitted in May 2024 with question of serum sickness like reaction secondary to Rixtuximab. CT chest 06/05 revealed bibasilar atlectasis vs consolidation as well as bilateral trace pleural effusions ,repeat chest ct 12/07 revealed resolution. She was ultimately discharged on 4 L supplemental oxygen and continued 2L supplemental oxygen. At the last visit in November, 6MWT performed and patient no longer required supplemental oxygen. Unfortunately the supplemental oxygen is still present at her home despite letter of discontinuation. She reports moderate control of respiratory symptoms on Breo continues with dry cough and chest tightness, however not using albuterol MDI. She denies any visits to urgent care or hospitalizations related to respiratory distress since the last visit. 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 Diabetes type 2, uncontrolled Chronic ITP (idiopathic thrombocytopenia) Asthma Pernicious anemia Diabetes mellitus Fibromyalgia GERD (gastroesophageal reflux disease) Hypertension Adult hypothyroidism Chronic ITP (idiopathic thrombocytopenia) Surgical History H/O colonoscopy Hx of cataract surgery H/O: hysterectomy Family History Mother Diabetes Sister Stomach cancer Father Brother Colon cancer Brother Pancreas cancer Social History (Reviewed 04/11/25 @ 14:58 by Katelynn Barrett [facility]) Household Members: Spouse Housing: Apartment Are you a primary health care marketing manager to a significant other at home: No Do you presently have visiting nurse or other home services: Yes Alcohol intake: current Alcohol intake frequency: does not drink Patient Tobacco Use Status: Former Tobacco user Tobacco use type: Cigarette service: No Current occupational status: unemployed Current occupation: she lives with her . Current occupational exposures/hazards: No Female Reproductive History Menstrual Age of Menarche: 7 Review of Systems Const Denies chills, Denies excessive sweating, Denies fever(s), Denies headache(s) and Denies night sweats Eyes Denies dry eyes, Denies irritation and Denies itchy eyes ENT Reports Normal hearing present, Denies headache(s), Denies nasal congestion, Denies nasal discharge, Denies post nasal drip and Denies sore throat Card Denies chest pain, Denies chest pain at rest, Denies chest pain with activity, Denies claudication, Denies leg edema, Denies dyspnea on exertion, Denies orthopnea and Denies paroxysmal nocturnal dyspnea Resp Denies chest congestion, Reports cough, Denies excessive phlegm production, Denies pain on inspiration, Denies pain with cough, Denies dyspnea on exertion and Denies stridor Musc Denies myalgias Neuro Reports Normal hearing present and Denies headache(s) Endo Denies excessive sweating Drew/Lymph Denies lymphadenopathy Aller/Immun Denies itchy eyes and Denies seasonal rhinorrhea Physical Exam Vital Signs: Last Vital Signs Pulse 80 04/11/25 14:55 BP 116/58 L 04/11/25 14:55 Pulse Ox 97 04/11/25 14:55 Oxygen Delivery Method Room Air 04/11/25 14:55 BMI result Body Mass Index 41.6 Const General: cooperative, healthy appearing, comfortable, no acute distress, well developed and alert Nutritional Appearance: obese Orientation/consciousness: patient oriented x3 Limitations: no limitations HEENT Head: Yes normal to inspection, Yes normocephalic and Yes atraumatic Ears: hearing grossly normal bilaterally and external ears normal Eyes General: appearance normal, both eyes and all related structures Eyelids: Yes eyelids normal Sclerae: sclerae normal EOM: EOMs intact bilaterally Neck Neck: Yes normal visual inspection and Yes no lymphadenopathy Lymphatic: no lymphadenopathy noted Chest Chest palpation & inspection: normal inspection of the chest Resp Effort & Inspection: normal respiratory effort, able to speak in complete sentences, no audible wheezes, no cough, no stridor, not tachypneic, no tripod positioning and no use of accessory muscles Auscultation: clear to auscultation bilaterally Cardio Jugular venous distension: no JVD Rate: regular rate Rhythm: regular rhythm Skin Other: warm, dry General skin exam: no rashes or lesions noted Neuro General: patient oriented x3 Cranial nerves: Yes Normal hearing present Cognition (Neuro): normal cognition Gait exam (Neuro): Normal gait present Extrem General: Yes normal to inspection, Yes capillary refill normal, Yes no clubbing, cyanosis or edema and Yes no pedal edema Psych Appearance: grossly normal and well kempt Speech and movement: Normal speech and movement present and Clear speech present Affect: normal affect Attitude: cooperative Thought process: Normal thought process present Thought content: Normal thought content present Insight: Good insight present (Psych) Judgement: Good judgement present (Psych) Assessment & Plan Assessment & Plan (1) Asthma: Code(s): J45.909 - Unspecified asthma, uncomplicated Category: Medical (2) Dyspnea on exertion: Code(s): R06.09 - Other forms of dyspnea Category: Medical (3) Daytime somnolence: Code(s): R40.0 - Somnolence Category: Medical Plan Bhavna reports suboptimal control with Breo 100mcg, will increase to 200 mcg. Will resend discontinuation letter to [place] as patient no longer needs supplemental oxygen with exertion. Previously home sleep study ordered, patient would like to defer at this time. All questions were answered and patient is in agreement of plan. Will follow up in 6-8 weeks or sooner if needed. Medications: New fluticasone furoate-vilanterol 200-25 mcg/dose (Breo Ellipta) 1 inh inhalation DAILY 60 ea 6RF Discontinued fluticasone furoate-vilanterol 100-25 mcg/dose (Breo Ellipta) Discontinued Reason: Patient Completed Course 1 ea inhalation DAILY 60 ea 0RF Coding Level of Care Code Est Pt Level 4 (49767) Diagnoses Asthma J45.909 Dyspnea on exertion R06.09 Daytime somnolence R40.0
[2025-04-11 14:55] VITALS: BP 116/58; PULSE 80; O2SAT 97; BMI 41.6
== END 2025-04-11 15:21 | disposition home or self-care (01) ==
LOC: HO.HPS 14:52
PROVIDERS: PCP Family Medicine; Visit Provider Nurse Practitioner Family
DX: J45.909 Unspecified asthma, uncomplicated (principal); R06.09 Other forms of dyspnea; R40.0 Somnolence
CPT/HCPCS: 99214

== ENCOUNTER → 2025-04-11 14:51 | Outpatient (BNVA) | payer MEDICAID, SELFPAY | PROVIDERS: PCP Family Medicine; Visit Provider Nurse Practitioner Family | DX: R40.0 Somnolence (principal); J45.909 Unspecified asthma, uncomplicated; R06.09 Other forms of dyspnea | CPT/HCPCS: 99212 ==

== ENCOUNTER 2025-05-19 12:23 | Outpatient (REF) | payer MEDICAID, SELFPAY ==
--- OUTSIDE RECORDS SUMMARY | 2025-05-19 12:37 | XMS_ITS | Patient Health Record ---
Author Organization [facility] Address [address] [place] [address] Care Team Providers Care Metal Sprayer Production Name Role Phone Katelynn Guzman MD Primary Care Provider Harika Michael Wells Unavailable [phone] Allergies Allergen (clinical drug ingredient) Drug/Non Drug Allergy documented on EMR Reaction Allergy Type Onset Date Status ibuprofen Ibuprofen Unknown Drug Allergy Active Reason For Referral No Information Medications Medication SIG (Take, Route, Frequency, Duration) Notes Start Date End Date Status Dulcolax (colon prep) 5 MG take at 3:00 p.m and 7:00p.m. Orally two tablets twice a day for one day for 1 day 10/31/2023 Active MiraLax (colon prep) 17 GM/SCOOP 1 238Gm bottle mixed with Gatorade or Crystal Light Orally begin at 5:00 p.m. the day before the procedure for 1 day 10/31/2023 Active Aspir-Low Active Finasteride Active Dicyclomine HCl Acti ve Acetaminophen Active clonazePAM Active QUEtiapine Fumarate 100 MG 1 tablet at b edtime Orally Once a day for 30 day(s) Active Lisinopril Active Cholecalciferol Acti ve Levothyroxine Sodium Active Cyclobenzaprine HCl 10 MG as directed Or ally Once a day Active Cetirizine HCl Activ e hydroCHLOROthiazide 12.5 MG 1 capsule in the morning Orally Once a day for 30 day(s) Active DULoxetine HCl 30 MG 1 capsule Orally On ce a day for 30 day(s) Active Omeprazole 20 MG 1 capsule 30 minutes before morning meal Orally Once a day for 30 day(s) Active Cyanocobalamin Activ e Ketotifen Fumarate 0.035 % 1 drop into a ffected eye Ophthalmic Twice a day Active Tougabino Bullock SoloStar 300 UNIT/ML INJECT 90 UNITS SUBCUTANEOUSLY ONCE DAILY Subcutaneous for 40 E1140,Unava ilable Active Zolpidem Tartrate Ac tive Artificial Tear Acti ve Coy 3 Active Problems Problem Type SNOMED Code ICD Code Onset Dates Problem Status W/U Status Risk Notes Problem 821642209 Encounter for screening for malignant neoplasm of colon (Z12.11) Active confirmed Problem Diverticulosis o f large intestine without perforation or abscess without bleeding (K57.30) Active confirmed Problem 49786837 Irritable bowel syndrome without diarrhea (K58.9) Active confirmed Problem 096373455 Other constipati on (K59.09) Active confirmed Problem Screening for malignant neoplasm of rectum (012185799) Encounter for screening for malignant neoplasm of rectum (Z12.12) Active confirmed Problem 553770785 Gastroesophageal reflux disease without esophagitis (K21.9) Active confirmed Problem 314954478 Family history o f colon cancer (Z80.0) Active confirmed Plan Of Treatment Future Test Test Name Order Date COLONOSCOPY 09/28/2015 COLONOSCOPY 08/19/2023 Insurance Providers Payer Name Payer Address Payer Phone Subscriber Number Group Number Insured Name Patient Relationship to Insured Coverage Start Date Coverage End Date [facility] [address] [place] [address] [id number] JESSICA LAST Self - patient is the insured Medical (General) History Medical History History ICD Code irritable bowel syndrome history of pernicious anemia and low Vit jolley B12 insulin dependent diabetes mellitus asthma hypothyroidism hypertension hyperlipidemia obstructive sleep apnea-uses CPAP migraines fibromyalgia vitligo GERD--upper endoscopy in Apr revealed a hiatal hernia, but was otherwise negative for esophagitis and Escobar's esophagus, and duodenal biopsies were normal Colonoscopy in 04/2005 reveal ed only a hyperplastic polyp and hemorrhoids--biopsies were negative for any underlying microscopic colitis Denies NE,CVA,renal disease C.diff in 10/2014 Depression/anxiety Negative colonoscopy 2015, although a li mited bowel prep was noted ITP-sees Dr. Khoury Surgical History Surgery Date(Month/Year) hysterectomy carpal tunnel
--- OUTSIDE RECORDS SUMMARY | 2025-05-19 12:37 | XMS_ITS | Encounter Summary ---
Author Organization [employer] Address [address] [facility] 7t [place] [address] Care Team Providers Care Program Strategist Name Role Phone Katelynn Guzman MD Primary Care Provider +- [phone] Heena Howard PharmD Unavailable [phone] Jere Khoury MD Unavailable [phone] Susanna Garibay Unavailable Unavailable Cely Kothari Unavailable [phone] Reason for Visit * Reason Onset Date Comments CHART PREP 05/17/2025 Encounter Details Date Type Department Care Team (Late st Contact Info) Description 05/17/2025 Telephone [facility] MEDICINE [address] [place], [place] [phone] Katelynn Guzman MD [address] [place], [place] [phone] CHART PREP Social History Tobacco Use Types Packs/Day Years [...] encounter Miscellaneous Notes * Telephone Encounter - Mikael Palomares [place] - 05/17/2025 1:59 PM EDT ..Chart Prep Labs: not applicable Images: not applicable Referrals: appointment pending FOR cdtm 05/23/25 Vaccines due: no updates Screenings: eye exam and foot exam Overdue care gaps: A1c, Glucose, SBIRT, PHQ-9, TANISHA-7, Oral health screening, and Disability screen,SDOH documented in this encounter Plan of Treatment Upcoming Encounters Date Type Department Care Team (Late st Contact Info) Description 05/20/2025 11:30 AM EDT Clinical Support [address] [address] 05/20/2025 1:00 PM EDT Office Visit [facility] OPTOMETRY [address] [place] [address] Jayshree Monson, OD [address] [place] [address] 05/23/2025 3:00 PM EDT Medication Management [facility] MEDICINE [address] [place] [address] Heena Howard, PharmD [address] [place] [address] 05/31/2025 2:00 PM EDT Office Visit [facility] ADULT DENTAL [address] [place] [address] Jerson Hernandez DDS [address] [place] [address] documented as of this encounter Goals Goal Patient Goal Type Associated Problems Recent Progress Patient-Stated? Author Hemoglobin A1c < 7 Result Component 7.8(01/24/2025 2:57 PM EDT) No Heena Howard, PharmD documented as of this encounter Visit Diagnoses Not on filedocumented in this encounter Additional Health Concerns Assessment Noted Time PHQ-9 Depression Total Score: 9 07/28/20 24 4:10 PM EDT documented as of this encounter Care Teams Program Strategist Relationship Specialty Start Date End Date Katelynn Guzman MD [address] [place] [address] PCP - General Family Medicine 10/26/13 Heena Howard, PharmD [address] [place] [address] Pharmacist Internal Medicine 09/26/22 Jere Khoury MD [address] [place] [address] Hematology and Oncology 09/20/24 Susanna Garibay [address] [place] [address] Ophthalmology 10/29/24 Cely Kothari [address] [place] [address] Dr [address] [place], [place] [phone] Pulmonary Disease 11/16/24 [facility] 10/26/24 documented as of this encounter
== END 2025-05-19 12:24 | disposition home or self-care (01) ==
LOC: HO.MAMMO 12:23
PROVIDERS: Visit Provider Family Medicine
DX: Z12.31 Encounter for screening mammogram for malignant neoplasm of breast (principal)
CPT/HCPCS: 77063; 77067

== ENCOUNTER → 2025-05-19 13:00 | Outpatient (BNV) | payer MEDICAID, SELFPAY | PROVIDERS: Visit Provider Radiology Body Imaging | DX: Z12.31 Encounter for screening mammogram for malignant neoplasm of breast (principal) | CPT/HCPCS: 77063; 77067 ==

== ENCOUNTER 2025-06-29 10:21 | Outpatient (REF) | payer MEDICAID, SELFPAY ==
--- OUTSIDE RECORDS SUMMARY | 2025-06-24 13:30 | XMS_ITS | Encounter Summary ---
Author Organization [employer] Address [address] [facility] 7t [place] [address] Care Team Providers Care Electric Welder Helper Name Role Phone Katelynn Guzman MD Primary Care Provider [phone] Heena Howard PharmD Unavailable [phone] Jere Khoury MD Unavailable [phone] Susanna Garibay Unavailable Unavailable Cely Kothari Unavailable [phone] Reason for Visit * Reason Comments B12 Injection Encounter Details Date Type Department Care Team (Latest Contact Info) Description 06/24/2025 1:30 PM EDT Clinical Support [facility] MEDICINE [address] [place] [address] Ira Lopez, RN [address] [place] [address] Vitamin B deficiency Social History Tobacco Use Types Packs/Day Years [...] as of this encounter Progress Notes * Ira Lopez RN - 06/24/2025 1:30 PM EDT S: Pt here for nurse visit B12 injection, today B12 standing order verified (02/17/2025). Pt denies any difficulties with previous injection received. O: Cyanocobalamin 1,000mcg/ML, 1mL given on right deltoid muscle, pt tolerated well. Pt observed for 15 minutes, no adverse reaction. A: Vitamin B12 Deficiency P: Pt may go home and return for next B12 injection, and bring Vitamin B12 vial to next appt. Next B12 appt scheduled Future Appointments Date Time Provider Department Center 07/18/2025 10:45 AM Katelynn Guzman MD MEDICINE [facility] 07/25/2025 11:30 AM Heena Howard PharmD MEDICINE [facility] 07/26/2025 1:00 PM [facility] GREEN TEAM NURSE MEDICINE [facility] Advised to monitor injection site for any increased redness or swelling and follow up with PCP as needed. Pt agrees with plan and verbalized understanding Ira Lopez RN. documented in this encounter Plan of Treatment Upcoming Encounters Date Type Department Care Team (Late st Contact Info) Description 07/18/2025 10:45 AM EDT Office Visit [address] [address] Katelynn Guzman MD [address] [place] [address] 07/25/2025 11:30 AM EDT Medication Management [address] [address] Heena Howard PharmD [address] [place] [address] 07/26/2025 1:00 PM EDT Clinical Support [address] [address] documented as of this encounter Goals Goal Patient Goal Type Associated Problems Recent Progress Patient-Stated? Author Hemoglobin A1c < 7 Result Component 7.9(05/23/2025 3:19 PM EDT) No Heena Howard, PharmD documented as of this encounter Visit Diagnoses Diagnosis Vitamin B deficiency Unspecified vitamin B deficiency documented in this encounter Administered Medications Active Administered Medications - up to 3 most recent administrations Medication Order MAR Action Action Date Dose Rate Site cyanocobalamin (Vitamin B-12) injection 1,000 mcg 1,000 mcg, Intramuscular, Every 30 days, First dose on Rosmery 02/17/25 at 0900, For 12 dosesIndications:B12 deficiency Given 06/24/2025 1:31 PM EDT 1,000 mcg Right Deltoid Given 05/24/2025 2:42 PM EDT 1,000 mcg Ri ght Deltoid Given 04/18/2025 11:30 AM EDT 1,000 mcg R ight Deltoid documented in this encounter Additional Health Concerns Assessment Noted Time PHQ-9 Depression Total Score: 9 07/28/20 24 4:10 PM EDT documented as of this encounter Care Teams Electric Welder Helper Relationship Specialty Start Date End Date Katelynn Guzman MD [address] [place] [address] PCP - General Family Medicine 10/26/13 Heena Howard PharmD [address] [place] [address] Pharmacist Internal Medicine 09/26/22 Jere Khoury MD [address] [place] [address] Hematology and Oncology 09/20/24 uSsanna Garibay [address] [place] [address] Ophthalmology 10/29/24 Cely Kothari [address] [place] [address] [place] [address] Pulmonary Disease 11/16/24 [facility] Stone Psychiatry 10/26/24 documented as of this encounter
[2025-06-29 11:21] LABS: MANUAL DIFF FLAG NO
[2025-06-29 11:29] LABS: Hematocrit 40.7 % (37.0-47.0); Hemoglobin 13.3 g/dl (12.0-16.0); Imm Gran Abs Auto 0.02 X10*3/uL (0.00-0.03); Imm Gran Pct Auto 0.3 % (0.0-0.4); Lymphocytes Absolute Auto 1.4 X10*3/uL (1.2-4.9); Mean Corpuscular HGB Conc 32.7 g/dl (31.0-35.0); Mean Corpuscular Hemoglobin 26.3 pg (27.0-33.0); Mean Corpuscular Volume 80.6 fL (80.0-98.0); NRBC Abs Auto 0.000 X10*3/uL (0.0-0.012); NRBC Pct Auto 0.0 /100WBC (0.0-0.2); Platelet Count 157 X10*3/uL (160-400); Red Blood Count 5.05 X10*6/uL (4.20-5.50); White Blood Count 7.2 X10*3/uL (4.8-10.8)
--- OUTSIDE RECORDS SUMMARY | 2025-06-29 12:41 | XMS_ITS | Encounter Summary ---
Author Organization [employer] Address [address] [facility] [address] 7[address] [place] [address] Care Team Providers Care Meat Carver Name Role Phone Katelynn Guzman MD Primary Care Provider + [phone] Heena Howard PharmD Unavailable [phone] Jere Khoury MD Unavailable [phone] Susanna Garibay Unavailable Unavailable Cely Kothari Unavailable [phone] Reason for Visit * Reason Comments Med Refill Encounter Details Date Type Department Care Team (Late st Contact Info) Description 09/15/2024 Refill [facility] MEDICINE [address] [place], [place] [phone] Heena Howard, PharmD [address] [place] [address] Type 2 diabetes mellitus with diabetic neuropathy, with long-term current use of insulin ([facility]) Social History Tobacco Use [...] Description 07/18/2025 10:45 AM EDT Office Visit [facility] MEDICINE [address] [place] [address] Katelynn Guzman MD [address] [place] [address] 07/25/2025 11:30 AM EDT Medication Management [address] [address] Heena Howard, PharmD [address] [place] [address] 07/26/2025 1:00 PM EDT Clinical Support [address] [place] [address] documented as of this encounter Goals Goal Patient Goal Type Associated Problems Recent Progress Patient-Stated? Author Hemoglobin A1c < 7 Result Component 7.9(05/23/2025 3:19 PM EDT) No Heena Howard, Luly documented as of this encounter Visit Diagnoses Diagnosis Type 2 diabetes mellitus with diabetic neuropathy, with long-term current use of insulin ([facility]) documented in this encounter Additional Health Concerns Assessment Noted Time PHQ-9 Depression Total Score: 9 07/28/20 24 4:10 PM EDT documented as of this encounter Care Teams Meat Carver Relationship Specialty Start Date End Date Katelynn Guzman MD [address] [place] [address] PCP - General Family Medicine 10/26/13 Heena Howard, PharmD [address] [place] [address] Pharmacist Internal Medicine 09/26/22 Jere Khoury MD [address] [place] [address] Hematology and Oncology 09/20/24 Susanna Garibay [address] [place] [address] Ophthalmology 10/29/24 Cely Kothari [address] [place] [address] [place] [address] Pulmonary Disease 11/16/24 Ghislaine Stone Psychiatry 10/26/24 documented as of this encounter
--- OUTSIDE RECORDS SUMMARY | 2025-06-29 12:42 | XMS_ITS | Encounter Summary ---
Author Organization [employer] Address [address] [facility] [address] 7[address] [place] [address] Care Team Providers Care Loans Consultant Name Role Phone Katelynn Guzman MD Primary Care Provider +- [phone] Heena Howard PharmD Unavailable [phone] Jere Khoury MD Unavailable [phone] Susanna Garibay Unavailable Unavailable Cely Kothari Unavailable [phone] Reason for Visit * Reason Comments Med Refill Encounter Details Date Type Department Care Team (Late st Contact Info) Description 03/09/2025 Refill [facility] MED & PEDS [address] [place], [place] [phone] Katelynn Guzman MD [address] [place] [address] Pain Social History Tobacco Use Types Packs/Day [...] Description 07/18/2025 10:45 AM EDT Office Visit [address] [address] Katelynn Guzman MD [address] [place] [address] 07/25/2025 11:30 AM EDT Medication Management [address] [address] Heena Howard, PharmD [address] [place] [address] 07/26/2025 1:00 PM EDT Clinical Support [address] [address] documented as of this encounter Goals Goal Patient Goal Type Associated Problems Recent Progress Patient-Stated? Author Hemoglobin A1c < 7 Result Component 7.9(05/23/2025 3:19 PM EDT) No Heena Howard, Luly documented as of this encounter Visit Diagnoses Diagnosis Pain Generalized pain documented in this encounter Additional Health Concerns Assessment Noted Time PHQ-9 Depression Total Score: 9 07/28/20 24 4:10 PM EDT documented as of this encounter Care Teams Loans Consultant Relationship Specialty Start Date End Date Katelynn Guzman MD [address] [place] [address] PCP - General Family Medicine 10/26/13 Heena Howard, JosephD [address] [place] [address] Pharmacist Internal Medicine 09/26/22 Jere Khoury MD [address] [place] [address] Hematology and Oncology 09/20/24 Susanna Garibay [address] [place] [address] Ophthalmology 10/29/24 Cely Kothari [address] [place] [address] [place] [address] Pulmonary Disease 11/16/24 Ghislaine Stone Psychiatry 10/26/24 documented as of this encounter
--- OUTSIDE RECORDS SUMMARY | 2025-06-29 12:42 | XMS_ITS | Encounter Summary ---
Author Organization [employer] Address 75 [facility] 7t [place] [address] Care Team Providers Care Oil Producer Name Role Phone Katelynn Guzman MD Primary Care Provider +- [phone] Heena Howard PharmD Unavailable +[phone]- [phone] Jere Khoury MD Unavailable [phone] Susanna Garibay Unavailable Unavailable Cely Kothari Unavailable [phone] Encounter Details Date Type Department Care Team (Late Contact Info) Description 06/26/2023 Abstract [facility] 230 [place] [address] Katelynn Guzman MD 230 [place] [address] Social History Tobacco Use Types Packs/Day Years [...] Description 07/18/2025 10:45 AM EDT Office Visit [address] [address] Katelynn Guzman MD [address] [place] [address] 07/25/2025 11:30 AM EDT Medication Management [address] [address] Henea Howard, PharmD [address] [place] [address] 07/26/2025 1:00 PM EDT Clinical Support [address] [address] documented as of this encounter Goals Goal [...] documented as of this encounter Care Teams Oil Producer Relationship Specialty Start Date End Date Katelynn Guzman MD [address] [place] [address] PCP - General Family Medicine 10/26/13 Heena Howard, PharmD [address] [place] [address] Pharmacist Internal Medicine 09/26/22 Jere Khoury MD [address] [place] [address] Hematology and Oncology 09/20/24 Susanna Garibay [address] [place] [address] Ophthalmology 10/29/24 Cely Kothari [address] [place] [address] [place] [address] Pulmonary Disease 11/16/24 Ghislaine Momineroa Psychiatry 10/26/24 documented as of this encounter
--- OUTSIDE RECORDS SUMMARY | 2025-06-29 12:42 | XMS_ITS | Encounter Summary ---
Author Organization [employer] Address 75 [facility] 7t [place] [address] Care Team Providers Care Recreation Program Specialist Name Role Phone Katelynn Guzman MD Primary Care Provider +- [phone] Heena Howard PharmD Unavailable [phone] Jere Khoury MD Unavailable [phone] Susanna Garibay Unavailable Unavailable Cely Kothari Unavailable [phone] Reason for Visit * Reason Onset Date Comments cx follow up appt 02/28/2025 Encounter Details Date Type Department Care Team (Late st Contact Info) Description 02/28/2025 Telephone [facility] 230 [place] [address] Jerson Hernandez DDS 230 [place] [address] cx follow up appt Social History Tobacco Use Types Packs/Day Years [...] encounter Miscellaneous Notes * Telephone Encounter - Kay Burgess - 02/28/2025 10:12 AM EDT Patient has cancelled the 03/01 appt for follow up on ext site. Patient stated she did not want to come in because she was in too much pain. Explained to patient keeping the appt is helpful as it allows provider to check area and make sure she is healing well and address the pain. The patient has officially declined. Appt cancelled DR documented in this encounter Plan of Treatment Upcoming Encounters Date Type Department Care Team ([facility] st Contact Info) Description 07/18/2025 10:45 AM EDT Office Visit [facility] [address] [place] [address] Katelynn Guzman MD [address] [place] [address] 07/25/2025 11:30 AM EDT Medication Management [address] [address] Heena Howard PharmD [address] [place] [address] 07/26/2025 1:00 PM EDT Clinical Support [address] [address] documented as of this encounter Goals Goal [...] documented as of this encounter Care Teams Recreation Program Specialist Relationship Specialty Start Date End Date Katelynn Guzman MD [address] [place] [address] PCP - General Family Medicine 10/26/13 Heena Howard, PharmD [address] [place] [address] Pharmacist Internal Medicine 09/26/22 Jere Khoury MD [address] [place] [address] Hematology and Oncology 09/20/24 Susanna Garibay 180 [place] [address] Ophthalmology 10/29/24 Cely Kothari [address] [place] [address] Ale [facility] [place] [address] Pulmonary Disease 11/16/24 Ghislaine Stone Psychiatry 10/26/24 documented as of this encounter
--- OUTSIDE RECORDS SUMMARY | 2025-06-29 12:42 | XMS_ITS | Encounter Summary ---
Author Organization [employer] Address 75 [facility] 7t [place] [address] Care Team Providers Care Folding Rules Printing Machine Operator Name Role Phone Katelynn Guzman MD Primary Care Provider + [phone] Heena Howard PharmD Unavailable [phone] Jere Khoury MD Unavailable [phone] Susanna Garibay Unavailable Unavailable Cely Kothari Unavailable [phone] Reason for Visit * Reason Comments Med Refill Encounter Details Date Type Department Care Team (Late st Contact Info) Description 05/26/2024 Refill [facility] 230 [place], [place] [phone] Heena Howard, PharmD 230 [place] [address] Type 2 diabetes mellitus without complication, with long-term current use of insulin ([facility]) Social History Tobacco Use Types [...] the past 12 months, has t he [employer] gas, oil or water company threatened to [...] Description 07/18/2025 10:45 AM EDT Office Visit [facility] [address] [place] [address] Katelynn Guzman MD [address] [place] [address] 07/25/2025 11:30 AM EDT Medication Management [address] [address] Heena Howard, JosephD [address] [place] [address] 07/26/2025 1:00 PM EDT Clinical Support [address] [address] documented as of this encounter Goals Goal Patient Goal Type Associated Problems Recent Progress Patient-Stated? Author Hemoglobin A1c < 7 Result Component 7.9(05/23/2025 3:19 PM EDT) No Heena Howard, PharmD documented as of this encounter Visit Diagnoses Diagnosis Type 2 diabetes mellitus without complication, with long-term current use of insulin ([facility]) documented in this encounter Additional Health Concerns Assessment Noted Time PHQ-9 Depression Total Score: 0 04/07/20 24 2:36 PM EDT documented as of this encounter Care Teams Folding Rules Printing Machine Operator Relationship Specialty Start Date End Date Katelynn Guzman MD 230 [place] [address] PCP - General Family Medicine 10/26/13 Heena Howard, JosephD 230 [place] [address] Pharmacist Internal Medicine 09/26/22 Jere Khoury MD [address] [place] [address] Hematology and Oncology 09/20/24 Susanna Garibay [address] [place] [address] Ophthalmology 10/29/24 Cely Kothari [address] [place] [address] [place] [address] Pulmonary Disease 11/16/24 Ghislaine Ritter Psychiatry 10/26/24 documented as of this encounter
--- OUTSIDE RECORDS SUMMARY | 2025-06-29 12:42 | XMS_ITS | Encounter Summary ---
Author Organization [employer] Address 75 [facility] 7t [place] [address] Care Team Providers Care Social Media Job Titles Name Role Phone Katelynn Guzman MD Primary Care Provider + [phone] Heena Howard PharmD Unavailable [phone] Jere Khoury MD Unavailable [phone] Susanna Garibay Unavailable Unavailable Cely Kothari Unavailable [phone] Reason for Visit * Reason Comments Med Refill Encounter Details Date Type Department Care Team (Late st Contact Info) Description 06/22/2024 Refill [facility] 230 [place], [place] [phone] Heena Howard, PharmD 230 [place] [address] Type 2 diabetes mellitus without complication, with long-term current use of insulin ([facility]) Social History Tobacco Use Types Packs/Day [...] Description 07/18/2025 10:45 AM EDT Office Visit [facility] [address] [place] [address] Katelynn Guzman MD [address] [place] [address] 07/25/2025 11:30 AM EDT Medication Management [facility] [address] [place] [address] Heena Howard PharmD [address] [place] [address] 07/26/2025 1:00 PM EDT Clinical Support [facility] 230 [place] [address] documented as of this encounter Goals Goal Patient Goal Type Associated Problems Recent Progress Patient-Stated? Author Hemoglobin A1c < 7 Result Component 7.9(05/23/2025 3:19 PM EDT) No Heena Howard, PharmD documented as of this encounter Visit Diagnoses Diagnosis Type 2 diabetes mellitus without complication, with long-term current use of insulin ([facility]) documented in this encounter Additional Health Concerns Assessment Noted Time PHQ-9 Depression Total Score: 0 04/07/20 24 2:36 PM EDT documented as of this encounter Care Teams Social Media Job Titles Relationship Specialty Start Date End Date Katelynn Guzman MD [address] [place] [address] PCP - General Family Medicine 10/26/13 Heena Howard, PharmD 230 [place] [address] Pharmacist Internal Medicine 09/26/22 Jere Khoury MD [address] [place] [address] Hematology and Oncology 09/20/24 Susanna Garibay [address] [place] [address] Ophthalmology 10/29/24 Cely Kothari [address] [place] [address] [place] [address] Pulmonary Disease 11/16/24 Ghislaine Stone Psychiatry 10/26/24 documented as of this encounter
--- OUTSIDE RECORDS SUMMARY | 2025-06-29 12:42 | XMS_ITS | Encounter Summary ---
Author Organization [employer] Address 75 [facility] 7t [place] [address] Care Team Providers Care Floral Arranger Name Role Phone Katelynn Guzman MD Primary Care Provider +- [phone] Heena Howard PharmD Unavailable [phone] Jere Khoury MD Unavailable [phone] Susanna Garibay Unavailable Unavailable Cely Kothari Unavailable [phone] Reason for Visit * Reason Onset Date Comments FYI 06/29/2024 Nurse Triage 06/29/2024 Encounter Details Date Type Department Care Team (Late st Contact Info) Description 06/29/2024 Telephone [facility] 230 [place], [place] [phone] Katelynn Guzman MD 230 [place], [place] [phone] FYI; Nurse Triage Social History Tobacco Use [...] 06/29/2024 12:42 PM EDT Called Yani from [facility] at [phone]. [facility] nurse states that this is the first time seeing pt. Pt. Gets daily weight checks and last Friday06/22/24 pt weight was 207- and today 06/29/24 weightis 215. Bilateral Feet and legs are swollen mildly positive pedal pulses. Pt is breathing WNL, and lungs are clear. Today BP 120/60 pulse 81. I will call pt. For assessment. Called pt. Via [employer] wind[employer] installer [id number] Dg. Pt. Agrees that she has gained [...] 12:31 PM EDT [facility] in the past week the patient has gained 8 pounds and the patient haves feet and leg swelling Yani would like a call back to discuss more at [phone] documented in this encounter Plan of Treatment Upcoming Encounters Date Type Department Care Team (Late st Contact Info) Description 07/18/2025 10:45 AM EDT Office Visit [address] [address] Katelynn Guzman MD [address] [place] [address] 07/25/2025 11:30 AM EDT Medication Management [address] [address] Heena Howard, JosephD [address] [place] [address] 07/26/2025 1:00 PM EDT Clinical Support [address] [address] documented as of this encounter Goals Goal [...] documented as of this encounter Care Teams Floral Arranger Relationship Specialty Start Date End Date Katelynn Guzman MD 230 [place] [address] PCP - General Family Medicine 10/26/13 Heena Howard, PharmD [address] [place] [address] Pharmacist Internal Medicine 09/26/22 Jere Khoury MD [address] [place] [address] Hematology and Oncology 09/20/24 Susanna Garibay [address] [place] [address] Ophthalmology 10/29/24 Cely Kothari [address] [place] [address] [place] [address] Pulmonary Disease 11/16/24 Ghislaine Stone Psychiatry 10/26/24 documented as of this encounter
--- OUTSIDE RECORDS SUMMARY | 2025-06-29 12:42 | XMS_ITS | Patient Health Record ---
Author Organization [facility] Address [address] [place] [address] Care Team Providers Care Surgical Processor Name Role Phone Katelynn Guzman MD Primary Care Provider Harika Michael Wells Unavailable [phone] Allergies Allergen (clinical drug ingredient) Drug/Non Drug [...] Tartrate Ac tive Artificial Tear Acti ve [place] 3 Active Problems Problem Type SNOMED Code ICD Code Onset Dates Problem Status W/U Status Risk Notes Problem 025927712 Encounter for screening for malignant neoplasm of colon (Z12.11) Active confirmed Problem Diverticular disease of colon (203292754) Diverticulosis of large intestine without perforation or abscess without bleeding (K57.30) Active confirmed Problem 89804834 Irritable bowel syndrome without diarrhea (K58.9) Active confirmed Problem 060123836 Other constipati on (K59.09) Active confirmed Problem Screening for malignant neoplasm of rectum (198886319) Encounter for screening for malignant neoplasm of rectum (Z12.12) Active confirmed Problem 413850865 Gastroesophageal reflux disease without esophagitis (K21.9) Active confirmed Problem 698182243 Family history o f colon cancer (Z80.0) Active confirmed Plan Of Treatment Future Test Test Name Order Date COLONOSCOPY 09/28/2015 COLONOSCOPY 08/19/2023 Insurance Providers Payer Name Payer Address Payer Phone Subscriber Number Group Number Insured Name Patient Relationship to Insured Coverage Start Date Coverage End Date [facility] [address] [place] [address] [id number] JESSICA LAST Self - patient is the [...] negative for any underlying microscopic colitis Denies SD,CVA,renal disease C.diff in 10/2014 Depression/anxiety Negative colonoscopy 2015, although a li mited bowel prep was noted ITP-sees Dr. Khoury Surgical History Surgery Date(Month/Year) hysterectomy carpal tunnel
--- OUTSIDE RECORDS SUMMARY | 2025-06-29 12:42 | XMS_ITS | Encounter Summary ---
Author Organization [employer] Address 75 [facility] 7t [place] [address] Care Team Providers Care Software Applications Specialist Name Role Phone Katelynn Guzman MD Primary Care Provider +- [phone] Heena Howard PharmD Unavailable [phone] Jere Khoury MD Unavailable [phone] Susanna Garibay Unavailable Unavailable Cely Kothari Unavailable [phone] Encounter Details Date Type Department Care Team (Late Contact Info) Description 12/06/[address] [facility] MEDICINE 230 [place], [place] [phone] Katelynn Guzman MD 230 [place] [address] Social History Tobacco Use Types Packs/Day Years [...] Department Care Team (Late Contact Info) Description 07/18/2025 10:45 AM EDT Office Visit [address] [address] Katelynn Guzman MD [address] [place] [address] 07/25/2025 11:30 AM EDT Medication Management [address] [address] Heena Howard PharmD [address] [place] [address] 07/26/2025 1:00 PM EDT Clinical Support [address] [address] documented as of this encounter Goals Goal Patient Goal Type Associated Problems Recent Progress Patient-Stated? Author Hemoglobin A1c < 7 Result Component 7.9(05/23/2025 3:19 PM EDT) No Heena Howard, PharmD documented as of this encounter Visit Diagnoses Diagnosis Type 2 diabetes mellitus with diabetic neuropathy, with long-term current use of insulin ([facility]) documented in this encounter Additional Health Concerns Assessment Noted Time PHQ-9 Depression Total Score: 5 11/25/19 23 11:12 AM EST documented as of this encounter Care Teams Software Applications Specialist Relationship Specialty Start Date End Date Katelynn Guzman MD [address] [place] [address] PCP - General Family Medicine 10/26/13 Heena Howard, PharmD [address] [place] [address] Pharmacist Internal Medicine 09/26/22 Jere Khoury MD [address] [place] [address] Hematology and Oncology 09/20/24 Susanna Garibay [address] [place] [address] Ophthalmology 1/17/25 Cely Kothari [address] [place] [address] [address] [place] [address] Pulmonary Disease 11/16/24 Ghislaine Ritter Psychiatry 10/26/24 documented as of this encounter
--- OUTSIDE RECORDS SUMMARY | 2025-06-29 12:42 | XMS_ITS | Encounter Summary ---
Author Organization [employer] Address [address] [facility] [address] 7t [place] [address] Care Team Providers Care Senior Technical Architect Name Role Phone Katelynn Guzman MD Primary Care Provider +- [phone] Heena Hwoard PharmD Unavailable [phone] Jere Khoury MD Unavailable [phone] Susanna Garibay Unavailable Unavailable Cely Kothari Unavailable [phone] Encounter Details Date Type Department Care Team (Late st Contact Info) Description 06/02/2024 Orders Only [facility] 230 [place], [place] [phone] Katelynn Guzman MD 230 [place], [place] [phone] Social History Tobacco Use Types Packs/Day Years [...] Description 07/18/2025 10:45 AM EDT Office Visit [address] [address] Katelynn Guzman MD [address] [place] [address] 07/25/2025 11:30 AM EDT Medication Management [address] [address] Heena Howard PharmD [address] [place] [address] 07/26/2025 1:00 PM EDT Clinical Support [address] [address] documented as of this encounter Goals Goal [...] documented as of this encounter Care Teams Senior Technical Architect Relationship Specialty Start Date End Date Katelynn Guzman MD 230 [place] [address] PCP - General Family Medicine 10/26/13 Heena Howard, Luly 230 [place] [address] Pharmacist Internal Medicine 09/26/22 Jere Khoury MD [address] [place] [address] Hematology and Oncology 09/20/24 Susanna Garibay [address] [place] [address] Ophthalmology 10/29/24 Cely Kothari [address] [place] [address] [place] [address] Pulmonary Disease 11/16/24 Ghislaine Stone Psychiatry 10/26/24 documented as of this encounter
--- OUTSIDE RECORDS SUMMARY | 2025-06-29 12:42 | XMS_ITS | Encounter Summary ---
Author Organization [employer] Address 75 [facility] [address] 7t [place] [address] Care Team Providers Care Internship Name Role Phone Katelynn Guzman MD Primary Care Provider + [phone] Heena Howard PharmD Unavailable [phone] Jere Khoury MD Unavailable [phone] Susanna Garibay Unavailable Unavailable Cely Kothari Unavailable [phone] Reason for Visit * Reason Comments Med Refill Encounter Details Date Type Department Care Team (Late st Contact Info) Description 10/12/2024 Refill [facility] [address] [place], [place] [phone] Katelynn Guzman MD 230 [place] [address] Pain; Chronic vaginitis Social History Tobacco Use [...] Description 07/18/2025 10:45 AM EDT Office Visit [address] [address] Katelynn Guzman MD [address] [place] [address] 07/25/2025 11:30 AM EDT Medication Management [address] [address] Heena Howard, PharmD [address] [place] [address] 07/26/2025 1:00 PM EDT Clinical Support [address] [address] documented as of this encounter Goals Goal Patient Goal Type Associated Problems Recent Progress Patient-Stated? Author Hemoglobin A1c < 7 Result Component 7.9(05/23/2025 3:19 PM EDT) No Heena Howard, Luly documented as of this encounter Visit Diagnoses Diagnosis Pain Generalized pain Chronic vaginitis Unspecified vaginitis and vulvovaginitis documented in this encounter Additional Health Concerns Assessment Noted Time PHQ-9 Depression Total Score: 9 07/28/20 24 4:10 PM EDT documented as of this encounter Care Teams Internship Relationship Specialty Start Date End Date Katelynn Guzman MD 230 [place] [address] PCP - General Family Medicine 10/26/13 Heena Howard, PharmD [address] [place] [address] Pharmacist Internal Medicine 09/26/22 Jere Khoury MD [address] [place] [address] Hematology and Oncology 09/20/24 Susanna Garibay [address] [place] [address] Ophthalmology 10/29/24 Cely Kothari [address] [place] [address] [place] [address] Pulmonary Disease 11/16/24 Ghislaine Stone Psychiatry 10/26/24 documented as of this encounter
--- OUTSIDE RECORDS SUMMARY | 2025-06-29 12:42 | XMS_ITS | Encounter Summary ---
Author Organization [employer] Address 75 [facility] 7t [place] [address] Care Team Providers Care Trimmer Hand Name Role Phone Katelynn Guzman MD Primary Care Provider +- [phone] Heena Howard PharmD Unavailable [phone] Jere Khoury MD Unavailable [phone] Susanna Garibay Unavailable Unavailable Cely Kothari Unavailable [phone] Reason for Visit * Reason Onset Date Comments Med Refill 05/19/2025 Encounter Details Date Type Department Care Team (Late st Contact Info) Description 05/19/2025 Telephone [facility] 230 [place], [place] [phone] Katelynn Guzman MD 230 [place], [place] [phone] Med Refill Social History Tobacco Use Types Packs/Day Years [...] encounter Miscellaneous Notes * Telephone Encounter - Ghislaine Milner LPN - 05/19/2025 11:11 AM EDT Medication is no longer on med list/please review * Telephone Encounter - Renato Jones - 05/19/2025 10:45 AM EDT TC from pt requesting medication refill. Medications needing refill : lidocaine (Lidoderm) 5 % patch To be sent to: [facility] [place]- - ZINA Beverly - [address] documented in this encounter Plan of Treatment Upcoming Encounters Date Type Department Care Team (Late st Contact Info) Description 07/18/2025 10:45 AM EDT Office Visit [facility] [address] [place] [address] Katelynn Guzman MD [address] [place] [address] 07/25/2025 11:30 AM EDT Medication Management [address] [address] Heena Howard, PharmD [address] [place] [address] 07/26/2025 1:00 PM EDT Clinical Support [address] [address] documented as of this encounter Goals Goal [...] documented as of this encounter Care Teams Trimmer Hand Relationship Specialty Start Date End Date Katelynn Guzman MD [address] [place] [phone] PCP - General Family Medicine 10/26/13 Heena Howard, PharmD [address] [place] [address] Pharmacist Internal Medicine 09/26/22 Jere Khoury MD [address] [place] [address] Hematology and Oncology 09/20/24 Susanna Garibay 180 [place] [address] Ophthalmology 10/29/24 Cely Kothari [address] [place] [address] Dr [address] [place] [address] Pulmonary Disease 11/16/24 Ghislaine Ritter Psychiatry 10/26/24 documented as of this encounter
--- OUTSIDE RECORDS SUMMARY | 2025-06-29 12:42 | XMS_ITS | Encounter Summary ---
Author Organization [employer] Address 75 [facility] 7t [place] [address] Care Team Providers Care Powder And Primer Canning Leader Name Role Phone Katelynn Guzman MD Primary Care Provider +- [phone] Heena Howard PharmD Unavailable [phone] Jere Khoury MD Unavailable [phone] Susanna Garibay Unavailable Unavailable Cely Kothari Unavailable [phone] Encounter Details Date Type Department Care Team (Late st Contact Info) Description 10/18/2022 Telephone [facility] MEDICINE [address] [place], [place] [phone] Katelynn Guzman MD 230 [place] [address] Social History Tobacco Use Types Packs/Day Years [...] Description 07/18/2025 10:45 AM EDT Office Visit [address] [address] Katelynn Guzman MD [address] [place] [address] 07/25/2025 11:30 AM EDT Medication Management [address] [address] Heena Howard PharmD [address] [place] [address] 07/26/2025 1:00 PM EDT Clinical Support [address] [address] documented as of this encounter Visit Diagnoses Not on filedocumented in this encounter Care Teams Powder And Primer Canning Leader Relationship Specialty Start Date End Date Katelynn Guzman MD [address] [place] [address] PCP - General Family Medicine 10/26/13 Heena Howard PharmD [address] [place] [address] Pharmacist Internal Medicine 09/26/22 Jere Khoury MD [address] [place] [address] Hematology and Oncology 09/20/24 Susanna Garibay [address] [place] [address] Ophthalmology 10/29/24 Cely Kothari [address] [place] [address] [place] [address] Pulmonary Disease 11/16/24 Ghislaine Stone Psychiatry 10/26/24 documented as of this encounter
--- OUTSIDE RECORDS SUMMARY | 2025-06-29 12:42 | XMS_ITS | Encounter Summary ---
Author Organization [employer] Address [address] [facility] [address] 7t [place] [address] Care Team Providers Care Timber Trimmer Name Role Phone Katelynn Guzman MD Primary Care Provider +- [phone] Heena Howard PharmD Unavailable [phone] Jere Khoury MD Unavailable [phone] Susanna Garibay Unavailable Unavailable Cely Kothari Unavailable [phone] Encounter Details Date Type Department Care Team (Late st Contact Info) Description 10/09/2023 Orders Only [facility] MEDICINE 230 [place], [place] [phone] Katelynn Guzman MD 230 [place], [place] [phone] Social History Tobacco Use Types Packs/Day Years [...] Description 07/18/2025 10:45 AM EDT Office Visit [address] [address] Katelynn Guzman MD [address] [place] [address] 07/25/2025 11:30 AM EDT Medication Management [address] [address] Heena Howard PharmD [address] [place] [address] 07/26/2025 1:00 PM EDT Clinical Support [address] [address] documented as of this encounter Goals Goal [...] documented as of this encounter Care Teams Timber Trimmer Relationship Specialty Start Date End Date Katelynn Guzman MD [address] [place] [address] PCP - General Family Medicine 10/26/13 Heena Howard, JosephD [address] [place] [address] Pharmacist Internal Medicine 09/26/22 Jere Khoury MD [address] [place] [address] Hematology and Oncology 09/20/24 Susanna Garibay [address] [place] [address] Ophthalmology 10/29/24 Cely Kothari [address] [place] [address] [place] [address] Pulmonary Disease 11/16/24 Ghislaine Stone Psychiatry 10/26/24 documented as of this encounter
--- OUTSIDE RECORDS SUMMARY | 2025-06-29 12:42 | XMS_ITS | Encounter Summary ---
Author Organization [employer] Address 75 [facility] 7t [place] [address] Care Team Providers Care Customer Servicer Name Role Phone Katelynn Guzman MD Primary Care Provider +- [phone] Heena Howard PharmD Unavailable [phone] Jere Khoury MD Unavailable [phone] Susanna Garibay Unavailable Unavailable Cely Kothari Unavailable [phone] Reason for Visit * Reason Comments Med Refill Encounter Details Date Type Department Care Team (Late st Contact Info) Description 06/30/[address] [facility] CHC MED & PEDS [address] [place], [place] [phone] Priscilla Long MD 230 [place] [address] Type 2 diabetes mellitus with diabetic neuropathy, with long-term current use of insulin ([facility]) Social History Tobacco Use Types [...] Description 07/18/2025 10:45 AM EDT Office Visit [address] [address] Katelynn Guzman MD [address] [place] [address] 07/25/2025 11:30 AM EDT Medication Management [address] [address] Heena Howard PharmD [address] [place] [address] 07/26/2025 1:00 PM EDT Clinical Support [address] [address] documented as of this encounter Goals Goal Patient Goal Type Associated Problems Recent Progress Patient-Stated? Author Hemoglobin A1c < 7 Result Component 7.9(05/23/2025 3:19 PM EDT) No Heena Howard, PharmD documented as of this encounter Visit Diagnoses Diagnosis Type 2 diabetes mellitus with diabetic neuropathy, with long-term current use of insulin ([facility]) documented in this encounter Additional Health Concerns Assessment Noted Time PHQ-9 Depression Total Score: 5 11/25/19 23 11:12 AM EST documented as of this encounter Care Teams Customer Servicer Relationship Specialty Start Date End Date Katelynn Guzman MD [address] [place] [address] PCP - General Family Medicine 10/26/13 Heena Howard, PharmD [address] [place] [address] Pharmacist Internal Medicine 09/26/22 Jere Khoury MD [address] [place] [address] Hematology and Oncology 09/20/24 Susanna Garibay [address] [place] [address] Ophthalmology 10/29/24 Cely Kothari [address] [place] [address] [address] [place] [address] [id number] Pulmonary Disease 11/16/24 Ghislaine Momineroa Psychiatry 10/26/24 documented as of this encounter
--- OUTSIDE RECORDS SUMMARY | 2025-06-29 12:42 | XMS_ITS | Encounter Summary ---
Author Organization [employer] Address [address] [facility] [address] 7t [place] [address] Care Team Providers Care Welder Machine Operator Name Role Phone Katelynn Guzman MD Primary Care Provider +- [phone] Heena Howard PharmD Unavailable [phone] Jere Khoury MD Unavailable [phone] Susanna Garibay Unavailable Unavailable Cely Kothari Unavailable [phone] Reason for Visit * Reason Comments Med Refill Encounter Details Date Type Department Care Team (Late st Contact Info) Description 12/07/2024 Refill [facility] CHC MED & PEDS [address] [place], [place] [phone] Katelynn Guzman MD 230 [place] [address] Chronic vaginitis Social History Tobacco Use Types [...] Description 07/18/2025 10:45 AM EDT Office Visit [address] [address] Katelynn Guzman MD [address] [place] [address] 07/25/2025 11:30 AM EDT Medication Management [address] [address] Heena Howard, PharmD [address] [place] [address] 07/26/2025 1:00 PM EDT Clinical Support [address] [address] documented as of this encounter Goals Goal Patient Goal Type Associated Problems Recent Progress Patient-Stated? Author Hemoglobin A1c < 7 Result Component 7.9(05/23/2025 3:19 PM EDT) No Heena Howard, PharmD documented as of this encounter Visit Diagnoses Diagnosis Chronic vaginitis Unspecified vaginitis and vulvovaginitis documented in this encounter Additional Health Concerns Assessment Noted Time PHQ-9 Depression Total Score: 9 07/28/20 24 4:10 PM EDT documented as of this encounter Care Teams Welder Machine Operator Relationship Specialty Start Date End Date Katelynn Guzman MD 230 [place] [address] PCP - General Family Medicine 10/26/13 Heena Howard, PharmD [address] [place] [address] Pharmacist Internal Medicine 09/26/22 Jere Khoury MD [address] [place] [address] Hematology and Oncology 09/20/24 Susanna Garibay [address] [place] [address] Ophthalmology 10/29/24 Cely Kothari [address] [place] [address] [place] [address] Pulmonary Disease 11/16/24 Ghislaine Stone Psychiatry 10/26/24 documented as of this encounter
--- OUTSIDE RECORDS SUMMARY | 2025-06-29 12:42 | XMS_ITS | Encounter Summary ---
Author Organization [employer] Address [address] [facility] [address] 7t [place] [address] Care Team Providers Care Water Main Inspector Name Role Phone Katelynn Guzman MD Primary Care Provider + [phone] Heena Howard PharmD Unavailable [phone] Jere Khoury MD Unavailable [phone] Susanna Garibay Unavailable Unavailable Cely Kothari Unavailable [phone] Reason for Visit * Reason Comments Med Refill Encounter Details Date Type Department Care Team (Late st Contact Info) Description 12/14/2024 Refill [facility] CHC MED & PEDS [address] [place], [place] [phone] Katelynn Guzman MD 230 [place] [address] Dry eyes Social History Tobacco Use Types Packs/Day Years [...] Description 07/18/2025 10:45 AM EDT Office Visit [address] [address] Katelynn Guzman MD [address] [place] [address] 07/25/2025 11:30 AM EDT Medication Management [address] [address] Heena Howard, PharmD [address] [place] [address] 07/26/2025 1:00 PM EDT Clinical Support [address] [address] documented as of this encounter Goals Goal Patient Goal Type Associated Problems Recent Progress Patient-Stated? Author Hemoglobin A1c < 7 Result Component 7.9(05/23/2025 3:19 PM EDT) No Heena Howard, Luly documented as of this encounter Visit Diagnoses Diagnosis Dry eyes Unspecified tear film insufficiency documented in this encounter Additional Health Concerns Assessment Noted Time PHQ-9 Depression Total Score: 9 07/28/20 24 4:10 PM EDT documented as of this encounter Care Teams Water Main Inspector Relationship Specialty Start Date End Date Katelynn Guzman MD 230 [place] [address] PCP - General Family Medicine 10/26/13 Heena Howard, PharmD [address] [place] [address] Pharmacist Internal Medicine 09/26/22 Jere Khoury MD [address] [place] [address] Hematology and Oncology 09/20/24 Susanna Garibay [address] [place] [address] Ophthalmology 10/29/24 Cely Kothari [address] [place] [address] Pulmonary Disease 11/16/24 Ghislaine Stone Psychiatry 10/26/24 documented as of this encounter
--- OUTSIDE RECORDS SUMMARY | 2025-06-29 12:42 | XMS_ITS | Encounter Summary ---
Author Organization [employer] Address [address] [facility] [address] 7t [place] [address] Care Team Providers Care Supervisor [employer] Name Role Phone Katelynn Guzman MD Primary Care Provider +- [phone] Heena Howard PharmD Unavailable [phone] Jere Khoury MD Unavailable [phone] Susanna Garibay Unavailable Unavailable Cely Kothari Unavailable [phone] Reason for Visit * Reason Comments Med Refill Encounter Details Date Type Department Care Team (Late st Contact Info) Description 02/10/2025 Refill [facility] CHC MED & PEDS [address] [place], [place] [phone] Katelynn Guzman MD 230 [place] [address] Pain Social History Tobacco Use Types Packs/Day [...] AM EDT Office Visit [address] [address] Katelynn Guzman MD [address] [place] [address] 07/25/2025 11:30 AM EDT Medication Management [address] [address] Heena Howard, PharmD [address] [place] [address] 07/26/2025 1:00 PM EDT Clinical Support [address] [address] documented as of this encounter Goals Goal [...] documented as of this encounter Care Teams Supervisor [employer] Relationship Specialty Start Date End Date Katelynn Guzman MD 230 [place] [address] PCP - General Family Medicine 10/26/13 Heena Howard, JosephD [address] [place] [address] Pharmacist Internal Medicine 09/26/22 Jere Khoury MD [address] [place] [address] Hematology and Oncology 09/20/24 Susanna Garibay [address] [place] [address] Ophthalmology 10/29/24 Cely Kothari [address] [place] [address] [place] [address] Pulmonary Disease 11/16/24 Ghislaine Stone Psychiatry 10/26/24 documented as of this encounter
--- OUTSIDE RECORDS SUMMARY | 2025-06-29 12:42 | XMS_ITS | Encounter Summary ---
Author Organization [employer] Address 75 [facility] 7t [place] [address] Care Team Providers Care Media Analytics Manager Name Role Phone Katelynn Guzman MD Primary Care Provider + [phone] Heena Howard PharmD Unavailable [phone] Jere Khoury MD Unavailable [phone] Susanna Garibay Unavailable Unavailable Cely Kothari Unavailable [phone] Reason for Visit * Reason Comments Med Refill Encounter Details Date Type Department Care Team (Late st Contact Info) Description 08/21/2023 Refill [facility] MEDICINE 230 [place], [place] [phone] Heena Howard, PharmD 230 [place] [address] Social History Tobacco Use Types Packs/Day Years Used Date Smoking Tobacco: Former Cigarettes Passive Smoke Exposure: Past Smokeless Tobacco: Never Alcohol Use Standard Drinks/Week Comments Never 0 (1 standard drink = 0.6 oz pur e alcohol) Depression Answer Date Recorded Patient Health Questionnaire-9 Score 5 11/25/2022 Housing Stability Answer Date Recorded What is your housing situation today? I have tavo morris 07/28/[address] you li [...] Description 07/18/2025 10:45 AM EDT Office Visit [address] [address] Katelynn Guzman MD [address] [place] [address] 07/25/2025 11:30 AM EDT Medication Management [address] [address] Heena Howard PharmD [address] [place] [address] 07/26/2025 1:00 PM EDT Clinical Support [address] [address] documented as of this encounter Goals Goal [...] documented as of this encounter Care Teams Media Analytics Manager Relationship Specialty Start Date End Date Katelynn Guzman MD 230 [place] [address] PCP - General Family Medicine 10/26/13 Heena Howard, Luly 230 [place] [address] Pharmacist Internal Medicine 09/26/22 Jere Khoury MD [address] [place] [address] Hematology and Oncology 09/20/24 Susanna Garibay [address] [place] [address] Ophthalmology 10/29/24 Cely Kothari [address] [place] [address] Pulmonary Disease 11/16/24 Ghislaine Stone Psychiatry 10/26/24 documented as of this encounter
--- OUTSIDE RECORDS SUMMARY | 2025-06-29 12:42 | XMS_ITS | Clinical Summary ---
Author Organization [employer] Address [address] [facility] [address] [place] [address] Care Team Providers Care Amusement Ride Inspector Name Role Phone Katelynn Guzman MD Primary Care Provider [phone] Heena Howard PharmD Unavailable [phone] Jere Khoury MD Unavailable [phone] Susnana Garibay Unavailable Unavailable Cely Kothari Unavailable [phone] Allergies Active Allergy Reactions Criticality Noted Date Comments Ibuprofen Unknown,Rash Low 09/28/2015 Other reaction(s): Unknown Medications finasteride (Proscar) 5 MG tablet Take one half tablet by mouth once daily Active prednisoLONE acetate (Pred-Forte) 1 % ophthalmic [...] hidradenitis suppurativa 30 g 1 023 Active Lancets 28G miscIndications: Type 2 diabetes mellitus without complication, with long-term current use of insulin ([facility]) Test blood sugar 4 times daily. 200 each 11 023 Active clotrimazole (Lotrimin) 1 % creamIndications :Candidiasis Apply topically 2 times daily. Use on buttock area bid for 1 days, scottish 28 g 024 Active tacrolimus (Protopic) 0.1 % ointment Apply to itchy areas on face, trunk and extermities twice a day as needed for flares Active traMADol (Ultram) 50 MG tablet TOME FREEMAN TABLETA POR V A ORAL CADA OCHO HORAS CUANDO SEA NECESARIO FOR BREAKTHROUGH PAIN Active Continuous Glucose Outreach Associate (FreeStyle Bob 3 [place]) deviceIndication s:Type 2 diabetes mellitus with diabetic neuropathy, with long-term current use of insulin (CMS/HCC) 1 each Use as directed. Use to test blood sugar at least every 8 hours. 1 each Active cholecalciferol (D3 Super Strength) 50 MCG (1999) capsuleIndicatio ns:Vitamin D deficiency TAKE 1 CAPSULE BY MOUTH EVERY MORNING 28 capsule 025 Active hydroCHLOROthiaz kerry 12.5 MG tabletIndication s:Hypertension, unspecified type TAKE 1 TABLET BY MOUTH EVERY DAY 90 tablet 3 025 Active zolpidem (Ambien) 10 MG tabletIndication s:Recurrent major depressive episodes, moderate (CMS/HCC) Take by mouth if needed at bedtime for sleep. Active QUEtiapine (SEROquel) 300 MG tabletIndication s:Recurrent major depressive episodes, moderate (CMS/HCC) Take 300 mg by mouth at bedtime. Active cyanocobalamin (Vitamin B-12) 1000 MCG/ML injectionIndicat ions:Vitamin B deficiency inject 1 milliliter (1000MCG) by intramuscular route every month 1 mL 025 Active clonazePAM (KlonoPIN) 1 MG tabletIndication s:Recurrent major depressive episodes, moderate (CMS/HCC) Take 1 tablet by mouth 2 times daily. Active diphenhydrAMINE (BENADryl) 25 MG tabletIndication s:Rash Take 1 tablet (25 mg) by mouth if needed at bedtime for itching for up to 15 days. 15 tablet 025 Active cetirizine (ZyrTEC) 10 MG tabletIndication s:Seasonal allergies TAKE 1 TABLET BY MOUTH DAILY 28 tablet 3 025 Active cyclobenzaprine (Flexeril) 10 MG tabletIndication s:Pain TAKE 1 TABLET BY MOUTH AT BEDTIME NEEDED 30 tablet 3 025 Active senna-docusate sodium (Senokot-S) 8.6-50 MG tabletIndication s:Dermatitis Take 1 tablet by mouth Once per day. 30 tablet 025 2025 Active atorvastatin (Lipitor) 80 MG tabletIndication s:Type 2 diabetes mellitus without complication, with long-term current use of insulin ([facility]) Take 1 tablet (80 mg) by mouth Once per day. Take 1 tablet by mouth once daily 90 tablet 3 Active dicyclomine (Bentyl) 10 MG capsuleIndicatio ns:Abdominal pain, unspecified abdominal location TAKE 2 CAPSULES 3 TIMES A DAY NEEDED 90 capsule 3 Active Ketotifen Fumarate 0.035 % solutionIndicati ons:Dry eyes INSTILL 1 DROP IN BOTH EYES TWICE A DAY 5 mL 5 025 Active doxycycline (Monodox) 100 MG capsule Take 1 tablet by mouth once daily Active DULoxetine (Cymbalta) [address] capsule Take 2 capsule by mouth once daily at bedtime as directed Active levothyroxine (Synthroid, Levoxyl) 150 MCG tabletIndication s:Acquired hypothyroidism TAKE 1 TABLET (150MCG) BY MOUTH BEFORE BREAKFAST 28 tablet 5 Active omeprazole (PriLOSEC) [address] capsuleIndicatio ns:Gastroesophag eal reflux disease without esophagitis TAKE 1 CAPSULE BY MOUTH EVERY MORNING 28 capsule Active lisinopril 2.5 MG tabletIndication s:Primary hypertension TAKE 1 TABLET BY MOUTH DAILY 28 tablet Active acetaminophen (Tylenol 8 Hour) 650 MG ER tabletIndication s:Pain TAKE 2 TABLETS BY MOUTH EVERY TWELVE HOURS NEEDED 112 tablet 025 Active Tirzepatide (Mounjaro) 15 MG/0.5ML solution auto-injectorInd ications:Type 2 diabetes mellitus with diabetic polyneuropathy, with long-term current use of insulin ([facility]) Inject 15 mg under the skin every 7 (seven) days. 2 mL 3 025 Active glucagon (Baqsimi Two Pack) 3 MG/DOSE nasal powderIndication s:Type 2 diabetes mellitus without complication, with long-term current use of insulin ([facility]) For low blood sugar emergency, administer 3mg via one device into one nostril; if no response after 15 minutes, an additional 3mg from the other device may be administered. 2 each Active pen needle 32G x 4 mm miscIndications: Type 2 diabetes mellitus without complication, with long-term current use of insulin (CMS/HCC) Use with insulin administration three times daily 100 each 025 2025 Active Continuous Glucose Sensor (FreeStyle Bob 3 Plus Sensor) miscIndications: Type 2 diabetes mellitus with diabetic polyneuropathy, with long-term current use of insulin (CMS/HCC) 1 each every 15 days. Apply 1 every 15 days as directed for CGM 2 each Active lidocaine (Lidoderm) 5 % patchIndications :Fibromyalgia Apply 1 patch topically Once per day. Remove & discard patch within 12 hours or as directed by MD. 15 patch 2 Active hydrocortisone (Anusol-HC) 2.5 % rectal creamIndications :Acute hemorrhoid Apply small amount to rectum at bedtime prn hemorrhoids 15 g 2 025 Active insulin lispro (HumaLOG) 100 UNIT/ML injectionIndicat ions:Type 2 diabetes mellitus with diabetic neuropathy, with long-term current use of insulin ([facility]) INJECT SUBCUTANEOUSLY 22 UNITS BEFORE LUNCH AND 12 UNITS BEFORE DINNER. Do not use if skipping meal. 025 Active clotrimazole (Lotrimin) 1 % vaginal creamIndications :Chronic vaginitis INSERT 1 APPLICATOR VAGINALLY EVERY NIGHT AT BEDTIME FOR 7 DAYS 45 g 025 Active insulin glargine (Toujeo Max SoloStar) 300 UNIT/ML injectionIndicat ions:Type 2 diabetes mellitus with diabetic neuropathy, with long-term current use of insulin ([facility]/HCC) INJECT 94 UNITS SUBCUTANEOUSLY ONCE DAILY 025 Active glucose 4 g chewable tabletIndication s:Type 2 diabetes mellitus with diabetic neuropathy, with long-term current use of insulin (CMS/HCC) Chew 4 tablets (16 g) if needed for low blood sugar. 50 tablet 3 Active predniSONE (Deltasone) 20 MG tablet Take 20 mg by mouth Once per day. 024 2024 Discontinued(M ed list cleanup (will not trigger notification to Pharmacy)) lidocaine (Lidoderm) 5 % patchIndications :Fibromyalgia APPLY 1 PATCH TOPICALLY DAILY (MAY WEAR UP TO 12 HOURS) 30 patch 3 024 2024 Discontinued(M ed list cleanup (will not trigger notification to Pharmacy)) clotrimazole (Lotrimin) 1 % vaginal creamIndications :Chronic vaginitis INSERT 1 APPLICATOR VAGINALLY EVERY NIGHT AT BEDTIME FOR 7 DAYS 45 g 025 2024 Discontinued insulin glargine (Toujeo Max SoloStar) 300 UNIT/ML injectionIndicat ions:Type 2 diabetes mellitus with diabetic neuropathy, with long-term current use of insulin ([facility]) INJECT 92 UNITS SUBCUTANEOUSLY ONCE DAILY 025 2024 Discontinued Hospital, Clinic, or Other Facility Administered Medication Ordered Dose Route Frequency Start Date End Date Status cyanocobalamin (Vitamin B-12) injection 1,000 mcgIndications:B12 deficiency 1000 mcg IM Every 30 days 02/17/2025 02/12/2026 Active Active Problems Patient Care Coordination No te Formatting of this note migh t be different from the original. Enrolled in [facility] DM clinic with Heena Howard, PharmD, BETI Problem Noted Date Diagnosed Date Pain, dental 04/14/2025 Symptomatic periapical periodontitis 04/14/2025 Dental abrasion, generalized 04/14/2025 Other constipation 02/25/2025 Encounter for screening for malignant neoplasm o f rectum 12/12/2024 Mild intermittent asthma without complication Overview (04/14/2025): -seen by pulmonology at [facility] 11/16/24 -PFT revealed moderate restrictive ventilatory defect with bronchodilator response present in small to medium airways only. Decreased expiratory reserve volume suggests extrathoracic restriction likely secondary to abdominal obesity. Combination of decreased diffusion capacity and restrictive ventilatory defect suggests underlying pulmonary parenchymal disease. -chest CT which was unremarkable, with resolution of pleural effusions/consolidations. -started empirically on ICS/LABA 11/2024. - Patient interested in sending supplemental oxygen back, will schedule 6MWT and send for overnight oximetry to ensure resolution of nocturnal hypoxemia. All questions were answered and patient is in agreement of plan. -note from pulmonology 04/01/25 reviewed Breo 100mcg, increased to 200 mcg. Resent discontinuation letter to [place] as patient no longer needs supplemental oxygen with exertion. -Previously home sleep study ordered, patient would like to defer at this time. Will follow up in 6-8 weeks or sooner if needed. Rash 11/11/2024 Overview (11/11/2024): [facility] for itching rash. Unknown etiology. Called Medical Practitioners and got pt an appt for 11/15/24. Pt agrees with plan. Assessment & Plan (11/11/2024 3:19 PM EST): Rash of unknown etiology on forearms, neck and face. Extensive erythematous palques on arms, anterior neck and face with areas of auto excoriation. -called Medical Practitioners and pt has follow-up appt on 11/15/24. -encouraged staying away from scented creams or lotions. -prescribed diphenhydrAMINE (BENADryl) 25 MG On home O2 07/28/2024 Overview (07/28/2024): Discharged with home O2 from recent hospitalization. Pt not currently wearing it. Her O2 Sat is WNL. Pt still feels like she needs to continue using O2. -referred to Pulmonology 07/13/24 Cardiovascular event risk 07/20/2024 Overview (07/20/2024): Calculated 07/20/24 Borderline risk [...] bilateral L5 pars defects. Mild lumbar spondylosis. Diverticulosis of large inte el without perforation or abscess without bleeding 12/22/2023 Obesity due to excess calories 11/19/2023 [...] symptoms since onset. -I tried calling her drywall stripper helper today at but was not able to [...] to continue care w her specialist. Per MICROBIOLOGY COORDINATOR has apt coming up this month. -Alarm [...] (11/19/2023): Breast biopsy 05/2023 Breast, left, biopsy: Benign breast tissue with fibroadenomatous change and coarse calcifications; negative for atypia or malignancy. Mammo 11/19/23 BIRADS 2: Stable benign findings left breast. Biopsy site shows no appreciable change in the far posterior 11:30 o'clock axis. No new or aggressive appearing microcalcifications. Recommend the patient resume routine annual screening mammography. Assessment & Plan (12/22/2023 12:26 PM EDT): [...] malignancy. Other specified health status 04/16/2023 Overview (05/18/2025): -next comprehensive annual evaluation due after 12/21/2024 -eye care facilitated by Stacy Tyson, last seen by Dr. Susanna Limon 10/2024 -dental home is [facility] -health care proxy given and filed 07/28/24 Assessment & Plan (07/28/2024 3:46 PM EDT): -next physical exam due after 12/21/2024 -eye care facilitated by Stacy Tyson, last seen by Dr. Susanna Limon 06/12/23 -dental home is [facility] -health care proxy given and filed 07/28/24 Assessment & Plan (04/09/2024 11:07 AM EDT): -next physical exam due after 12/21/2024 -eye care facilitated by Stacy Tyson, last seen by Dr. Susanna Limon 06/12/23 -dental home is [facility] -health care proxy Assessment & Plan (12/22/2023 12:26 PM EDT): -next physical exam due after 12/21/2024 -eye care facilitated by Stacy Tyson, last seen by Dr. Susanna Limon 06/12/23 -dental home is [facility] Assessment & Plan (04/16/2023 2:10 PM EDT): -next physical exam due after -eye care facilitated by eye mary ledesma and [facility] last seen 12/30/2021. Referral placed 11/11/2022. [...] disorder 09/04/2022 Idiopathic thrombocytopenic purpura 09/04/2022 Overview (05/16/2025): -Normal blood counts Jun 2019 then CBC 05/2020 revealed pancytopenia with significant decline in WBC and platelets -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 Flu, meningoccous and pneumococcus -Followed by Dr. Khoury She was willing to go with Rituximab. [...] cefepime. Her case was discussed with the gear and spline grinder, who recommended IV steroids and antibiotics. Most [...] in 1 week for a follow-up visit. -hematology note 11/16/[address] Khoury She was unable to stop prednisone 3 weeks ago. -hematology note 05/13/[address] Khoury. Stable, stop the baby aspirin. recheck plt monthly, follow up 2 months Assessment & Plan (04/09/2024 11:06 AM EDT): [...] top of her psoriasis . Seen by [facility] 04/08/24, Prescribe clobetasol 0.05% lotion scalp bid and alclometasone 0.05% cream to face bid. Betamethasone 0.05% oint to trunk and extremities BID. Tacrolimus 0.1% ointment bid prn Decrease steroids a symptoms improve Assessment & Plan (12/22/2023 12:18 PM EDT): -has hx of eczema due dermatitis -will refer to Competitive Intelligence Manager Assessment & Plan (07/23/2023 4:16 PM [...] of this. Carpal tunnel education information in Cuban was provided to the patient. Patient was given a night splint. She verbalized understanding of the plan. Assessment & Plan (07/23/2023 4:11 PM EDT): Patient has early carpal tunnel. We discussed the pathophysiology of this. Carpal tunnel education information in Cuban was provided to the patient. Patient was given a night splint. She verbalized understanding of the plan. Assessment & Plan (04/16/2023 1:58 PM EDT): Patient has early carpal tunnel. We discussed the pathophysiology of this. Carpal tunnel education information in Cuban was provided to the patient. Patient was [...] headaches 02/12/2013 Vitiligo 02/12/2013 Hypothyroid 09/22/2012 Overview (03/28/2025): Lab Results Component Value Date TSH 4.98 (H) 11/12/2024 TSH 9.91 (H) 08/19/2024 TSH 1.56 06/04/2023 Assessment & Plan (04/09/2024 [...] mellitus with diabetic polyneuro noa 03/25/2012 Overview (03/01/2025): Diabetes is followed with pharmacy [facility] by Dr. Heena Howard PharmD -Has a continuous glucose monitor Lab Results Component Value Date HGBA1C 7.8 (A) 01/24/2025 HGBA1C 8.4 (A) 09/28/2024 HGBA1C 8.5 (A) 07/28/2024 Lab Results Component Value Date CREATININE 0.97 11/12/2024 EGFR 58 11/12/2024 MICROALBCREU 88.4 (H) 11/12/2024 MICROALBCREU 188.7 (H) 07/02/2024 LDLCHOLCAL 77 07/02/2024 -Samuel/Arb: Lisinopril 2.5mg -Statin therapy: Atorvastatin 80mg -Diabetic eye exam: eye and lasix and [facility] last seen 04/28/24 -Diabetic foot exam: Done 07/28/24 -Continue lifestyle modifications -Continue current medications -Toujeo solostar and insulin lispro titrated by [facility] -Mounjaro 12.5mg once weekly Assessment & Plan (07/28/2024 3:58 [...] -Diabetic eye exam: eye and lasix and [facility] last seen 06/12/23 -Diabetic foot exam: Done 04/16/2023. -Continue lifestyle modifications -Continue current medications -Toujo was increased to 98 units on 04/02/23 -Humalog was increased to 34 units -Continue ozempic 2mg once a week. -slightly worse control due to Raunjaro being back ordered Assessment & Plan (11/05/2023 [...] be compliant, and improve her diet. Offered air pollution control engineer referral, but pt is refusing, stating she has seen multiple commercial banker in the past. -Agreed to extrusion die corrector referral today, because of her difficult to [...] -Diabetic eye exam: eye and lasix and [facility] last seen 12/30/2021. Referral placed 11/11/2022. [...] medications - Foot exam: Fibromyalgia 03/25/2012 Overview (05/18/2025): CT 04/09/24 CT/CT cervical spine wo IV con IMPRESSION: No acute osseous cervical spine abnormality. Mild cervical spondylosis. Pt has chronic pain syndrome. Work up for autoimmune disease was unremarkable. I explained this is a noninflammatory, non-autoimmune central afferent processing disorder leading to a diffuse pain syndrome. Different treatment strategies for fibromyalgia discussed. -There is moderate evidence for efficacy for aerobic exercise, cognitive behavioral therapy, patient education, and group therapy. There is also evidence for acupuncture, hypnotherapy, biofeedback and balneotherapy. There is some weaker evidence for chiropractic therapy, massage, electrotherapy and ultrasound. There is no evidence that trigger point injections or opioids are beneficial in fibromyalgia. -Pharmacologic options include muscle relaxants, gabapentin, pregabalin, and duloxetine, but are the lest effective of all strategies. -Pt was counseled on the importance of exercise, adequate sleep, control of depression and or anxiety and stress management. Vitamin B deficiency 03/25/2012 Overview (03/28/2025): Lab Results Component Value Date VITB12 521 06/04/2023 Resolved Problems Problem Noted Date Diagnosed Date Resolved Date Exercise counseling 12/12/2024 03/28/20 25 Conjunctival hemorrhage of left eye 03/02/2024 04/06/2024 [...] Encounters Date Type Department Care Team Description 06/29/2025 Orders Only GENERIC EXTERNAL DATA DEPARTMENT Provider, Generic External Data 06/24/2025 1:30 PM EDT Clinical Support [facility] [address] [place] [id number] Ira Lopez RN Vitamin B deficiency 06/24/2025 Travel 06/20/2025 Travel 06/01/2025 Refill [facility] [address] [place] [address] Katelynn Guzman MD Chronic vaginitis 05/24/2025 2:30 PM EDT Clinical Support [facility] [address] [place] [phone] Analy Underwood RN Vitamin B deficiency 05/24/2025 Travel 05/23/2025 Refill [facility] [address] [place] [address] Katelynn Guzman MD Acute hemorrhoid 05/23/2025 Travel 05/19/[address] [facility] [address] [place] [address] Katelynn Guzman MD Fibromyalgia 05/19/[address] [facility] [address] [place] [phone] Katelynn Guzman MD Med Refill 05/17/[address] [facility] [address] [place] [phone] Katelynn Guzman MD CHART PREP 05/12/[address] [facility] [address] [place] [phone] Katelynn Guzman MD 05/07/[address] [facility] [address] [place] [phone] Katelynn Guzman MD Type 2 diabetes mellitus with diabetic polyneuropathy, with long-term current use of insulin ([facility]) (Primary Dx) 05/06/[address] [address] Heena Howard, PharmD 05/06/[address] [address] Heena Howard, PharmD 05/04/[address] [address] Heena Howard, PharmChristine nurse status check 05/04/[address] [address] Katelynn Guzman MD Nurse Triage 05/04/[address] [facility] [address] [place] [address] Katelynn Guzman MD Chronic vaginitis 05/04/2025 Travel 05/03/[address] [address] Katelynn Guzman MD 04/25/2025 1:00 PM EDT Telemedicine [address] [address] Heena Howard, PharmD Type 2 diabetes mellitus with diabetic polyneuropathy, with long-term current use of insulin ([facility]) (Primary Dx) 04/25/2025 Travel 04/19/[address] [address] Heena Howard, PharmD 04/18/2025 11:30 AM EDT Clinical Support [address] [address] Ya Dill RN Vitamin B deficiency 04/18/2025 Travel 04/14/2025 2:00 PM EDT Office Visit [facility] [address] [place] [phone] Raúl Mckeon DDS Pain, dental (Primary Dx); Symptomatic periapical periodontitis; Dental abrasion, generalized 04/13/2025 Travel 04/06/2025 Refill [facility] [address] [place] [address] Katelynn Guzman MD Gastroesophageal reflux disease without esophagitis; Primary hypertension; Pain; Chronic vaginitis from Last 3 Months Immunizations Immunization Administration Dates Next Due Hep B, adult [...] Sign Reading Time Taken Comments Blood Pressure 110/58 06/20/2025 11:14 AM EDT Pulse 79 06/20/2025 11:14 AM EDT Temperature 36.7 C (98 F) 11/11/2024 2:45 PM EST Respiratory Rate 18 [...] Description 07/18/2025 10:45 AM EDT Office Visit [address] [address] Katelynn Guzman MD [address] [place] [id number] 07/25/2025 11:30 AM EDT Medication Management [address] [address] Heena Howard, PharmD [address] [place] [phone] 07/26/2025 1:00 PM EDT Clinical Support [address] [address] Health Maintenance Due Date Last Done Comments CT Colonography 1963 Dental Oral Exam 1963 Dental Prophylaxis 1963 Dental X-Ray: Bitewings 1963 FIT DNA/Cologuard 1963 FIT 1963 FOBT 1963 Sigmoidoscopy 1963 Disability Screening 1963 Derm Melanoma Skin Check 05/04/1964 Eye Exam 01/22/2025 01/23/2024, 08/3 10/2022, 11/08/2022, Additional history exists Depression Monitoring 01/26/2025 07/28/2024, 024 SDOH Screening 04/07/2025 04/07/2024 Influenza Vaccine (#1) 2025 , 06/20/2023, 07/18/2022, Additional history exists Lipid Panel 07/02/2025 07/02/2024, 05/14, 02/12/2022, Additional history exists Alcohol/Substance Use Screening 07/28/2025 07/28/2024 Diabetes: Foot Exam 07/28/2025 07/28/2024, 07/28/2024, 07/28/2024, Additional history exists Diabetes: Hemoglobin A1C 08/23/2025 025, 01/24/2025, 09/28/2024, Additional history exists Diabetes: Urine Protein Screening 11/12/2025 11/12/2024, 07/02/2024, 06/04/2023, Additional history exists Dental X-Ray: Full Mouth 02/06/2026 02/05/2023 Tobacco Screening 04/14/2026 04/14/2025 Mammogram 05/19/2026 05/19/2025, 09/0 03/2024, 05/13/2024, Additional history exists Colonoscopy 11/10/2028 11/10/2023, [...] Aged 60 years or older Completed 11/06/2023 COVID-19 Vaccine Completed 07/07/2024, , 07/23/2023, Additional history exists HPV Vaccines Aged Out No longer eligi ble based on patient's age to complete this topic HPV/Cotest Discontinued Hepatitis A Vaccines Aged Out No long er eligible based on patient's age to complete this topic IPV Vaccines Aged Out No longer eligi ble based on patient's age to complete this topic Meningococcal B Vaccine Aged Out No l onger eligible based on patient's age to complete [...] Component 7.9(05/23/2025 3:19 PM EDT) No Heena Howard PharmD Procedures Procedure Name Priority Date/Time Associated Diagnosis Comments CBC WITH AUTO DIFFERENTIAL Routine 06/29/2025 10:28 AM EDT POCT GLYCATED HEMOGLOBIN, TOTAL Routine 05/23/2025 3:19 PM EDT Type 2 diabetes mellitus without complication, with long-term current use of insulin ([facility]) BI MAMMOGRAM SCREENING TOMOSYNTHESIS BILATERAL Routine 05/19/2025 12:50 PM EDT POCT GLUCOSE Routine 05/04/2025 3:55 PM EDT Type 2 diabetes mellitus without complication, with long-term current use of insulin ([facility]) POCT GLUCOSE Routine 05/04/2025 3:30 PM EDT Type 2 diabetes mellitus without complication, with long-term current use of insulin (CMS/HCC) POCT GLUCOSE Routine 05/04/2025 3:15 PM EDT Type 2 diabetes mellitus without complication, with long-term current use of insulin ([facility]) POCT GLUCOSE Routine 05/04/2025 3:02 PM EDT Type 2 diabetes mellitus without complication, with long-term current use of insulin (CMS/[facility]) POCT GLUCOSE Routine 05/04/2025 2:54 PM EDT Type 2 diabetes mellitus without complication, with long-term current use of insulin ([facility]) POCT GLUCOSE Routine 05/04/2025 2:44 PM EDT Type 2 diabetes mellitus without complication, with long-term current use of insulin (CMS/[facility]) POCT GLUCOSE Routine 05/04/2025 2:30 PM EDT Type 2 diabetes mellitus without complication, with long-term current use of insulin ([facility]) 23 EXTRACTION, ERUPTED TOOTH REQ REMOVAL OF BONE AND/OR SECTIONING OF TOOTH Routine 04/14/2025 2:00 PM EDT 22 EXTRACTION, ERUPTED TOOTH REQ REMOVAL OF BONE AND/OR SECTIONING OF TOOTH Routine 04/14/2025 2:00 PM EDT CASE PRESENTATION, DETAILED AND EXTENSIVE TREATMENT PLANNING Routine 04/14/2025 2:00 PM EDT INTRAORAL - PERIAPICAL FIRST RADIOGRAPHIC IMAGE Routine 04/14/2025 2:00 PM EDT ALBUMIN, RANDOM URINE W/CREATININE Routine 11/12/2024 12:33 PM EST LIPID PANEL, STANDARD Routine 07/02/2024 8:57 AM EDT COLONOSCOPY Routine 11/10/2023 DIABETES EYE EXAM Routine 06/12/2023 PANORAMIC RADIOGRAPHIC IMAGE Routine 02/05/2023 1:00 PM EDT HEPATITIS C ANTIBODY (EXTERNAL RESULTS ONLY) Routine 12/07/2020 12:18 PM EST HIV 1/2 ANTIGEN/ANTIBODY, FOURTH GENERATION W/RFL Routine 12/07/2020 11:38 AM EST PAP SMEAR Routine 10/13/2003 12:00 AM EST from Last 3 Months or Most Recently Relevant to Health Maintenance Results * (ABNORMAL) CBC auto differential (06/29/2025 10:28 AM EDT) White Blood Count 7.2 4.8 - 10.8 X10*3/uL [facility] Red Blood Count 5.05 4.20 - 5.50 X10*6/uL [facility] Hemoglobin 13.3 12.0 - 16.0 g/dl [facility] Hematocrit 40.7 37.0 - 47.0 % [facility] Mean Corpuscular Volume 80.6 80.0 - 98.0 fL [facility] Mean Corpuscular Hemoglobin 26.3(L) 27.0 - 33.0 pg [facility] Mean Corpuscular HGB Conc 32.7 31.0 - 35.0 g/dl [facility] Red Cell Distribution Width 15.1 11.0 - 16.0 % [facility] Platelet Count 157(L) 160 - 400 X10*3/uL [facility] Mean Platelet Volume 12.7(H) 9.4 - 12.3 fL [facility] Neutrophils Percent Auto 63.1 45 - 73 % [facility] Imm Gran Pct Auto 0.3 0.0 - 0.4 % [facility] Lymphocytes Percent Auto 19.1(L) 20 - 40 % [facility] Monocytes Percent Auto 13.0(H) 2 - 11 % [facility] Eosinophils Percent Auto 3.5 0 - 4 % [facility] Basophils Percent Auto 1.0 0 - 2 % [facility] NRBC Pct Auto 0.0 0.0 - 0.2 /100WBC [facility] Neutrophils Absolute Auto 4.6 2.0 - 8.3 x10*3/uL [facility] Imm Gran Abs Auto 0.02 0.00 - 0.03 X10*3/uL [facility] Lymphocytes Absolute Auto 1.4 1.2 - 4.9 X10*3/uL [facility] Monocytes Absolute Auto 0.9 0.1 - 1.2 X10*3/uL [facility] Eosinophils Absolute Auto 0.3 0.0 - 0.4 X10*3/uL [facility] Basophils Absolute Auto 0.1 0.0 - 0.2 X10*3/uL [facility] NRBC Abs Auto 0.000 0.0 - 0.012 X10*3/uL [facility] 06/29/2025 10:2 8 AM EDT 06/29/2025 11:14 AM EDT us Generic External Data Provider LAB BLOOD ORDERAB LES Final Result [facility] [address] [place] [address] [phone] * (ABNORMAL) POCT A1c (05/23/2025 3:19 PM EDT) Hemoglobin A1C 7.9(A) 4.0 - 5.7 % QC Media Lot # [id number] Lot# Expiration Date Blood 05/23/2025 3:19 PM EDT Katelynn Guzman MD POINT OF CARE TEST ENTER/E DIT ORDERABLES Final Result * BI Mammogram Screening Tomosynthesis Bilateral (05/19/2025 12:50 PM EDT) Anatomical Region Laterality Modality Breast Bilateral Mammography 05/19/2025 12:5 0 PM EDT Narrative 05/30/2025 8:03 AM EDT [address] [place] [address] Mammography Report Signed Patient: Bhavna Enriquez MR# : [id number] : [id number] Acct:[id number] Age/Sex: 59 / F ADM Date: 05/19/25 Loc: HO.MAMMO Attending Dr: Katelynn Guzman MD Ordering Physician: Katelynn Guzman MD Results: 2B enign Findings Date of Service: 05/19/25 Follow Up: 1 Year From Orig inal Mammogram Procedure(s): MM tomosynthesis screening BI Accession Number(s): [id number] cc: Katelynn Guzman MD EXAMINATION: MM SCREENING DIGITAL BREAST TOMOSYNTHESIS, BILATERAL CLINICAL INFORMATION: Screening. Asymptomatic. COMPARISON: Comparison made to multiple prior, most recent May 13, 2024, and most remote July 29, 2019. TECHNIQUE: Digital breast tomosynthesis is performed in both the craniocaudal and mediolateral oblique views along with computer-aided detection (CAD). FINDINGS: BREAST COMPOSITION: There are scattered areas of fibroglandular density (ACR BI-RADS breast composition Category b). RIGHT BREAST: No significant masses, suspicious calcifications or other abnormalities are seen. LEFT BREAST: Tissue marker from previous needle core biopsy. No significant masses, suspicious calcifications or other abnormalities are seen. MM/MM tomosynthesis screening BI IMPRESSION: BILATERAL BREASTS: Benign, no mammographic evidence of malignancy. Normal interval follow-up is recommended in 12 months. ASSESSMENT: BI-RADS 2 - Benign Findings RECOMMENDATION: Routine annual mammography screening. FOLLOW-UP: 1 year F/U This examination should not preclude the clinical evaluation of a suspicious palpable abnormality. This patient's information was entered into a reminder system with a target due date for their next mammogram. Electronically signed by: Gunjan Manrique MD 05/30/2025 08:00 AM EDT Dictated By: Gunjan Manrique MD Signed By: <Electronically signed by Gunjan Manrique MD in OV> 05/30/25 0800 DD/ 1250 TD/TT: 05/19/25 1314 Presser All Around: Procedure Note Donotuseinterpreter, Image - 05/30/2025 [facility] [address] [place], [place] [address] Mammography Report Signed Patient: Bhavna Enriquez DMR# : [id number] : 1965Acct:[id number] Age/Sex: 59 / FADM Date: 05/19/25 Loc: MAMMO Attending Dr: Katelynn Guzman MD Ordering Physician: Katelynn Guzman MDResults: 2B enign Findings Date of Service: 05/19/25Follow Up: 1 Year From Orig inal Mammogram Procedure(s): MM tomosynthesis screening BI Accession Number(s): [id number] cc: Katelynn Guzman MD EXAMINATION: MM SCREENING DIGITAL BREAST TOMOSYNTHESIS, BILATERAL CLINICAL INFORMATION: Screening. Asymptomatic. COMPARISON: Comparison made to multiple prior, most recent May 13, 2024, and most remote July 29, 2019. TECHNIQUE: Digital breast tomosynthesis is performed in both the craniocaudal and mediolateral oblique views along with computer-aided detection (CAD). FINDINGS: BREAST COMPOSITION: There are scattered areas of fibroglandular density (ACR BI-RADS breast composition Category b). RIGHT BREAST: No significant masses, suspicious calcifications or other abnormalities are seen. LEFT BREAST: Tissue marker from previous needle core biopsy. No significant masses, suspicious calcifications or other abnormalities are seen. MM/MM tomosynthesis screening BI IMPRESSION: BILATERAL BREASTS: Benign, no mammographic evidence of malignancy. Normal interval follow-up is recommended in 12 months. ASSESSMENT: BI-RADS 2 - Benign Findings RECOMMENDATION: Routine annual mammography screening. FOLLOW-UP: 1 year F/U This examination should not preclude the clinical evaluation of a suspicious palpable abnormality. This patient's information was entered into a reminder system with a target due date for their next mammogram. Electronically signed by: Gunjan Manrique MD 05/30/2025 08:00 AM EDT Dictated By: Gunjan Manrique MD Signed By: <Electronically signed by Gunjan Manrique MD in OV> 05/30/25 0800 DD/ 1250 TD/TT: 05/19/25 1314 Presser All Around: Katelynn Guzman MD IMG BI PROCEDURES Final Re sult * POCT Glucose (05/04/2025 3:55 PM EDT) Only the most recent of7 resultswithin the time period is included. Glucose Blood, POC 85 60 - 200 mg/dL QC Media Lot # [id number] Lot# Expiration Date [id number] Blood Capillary blood specimen / Unknown 05/04/2025 3:55 PM EDT Katelynn Guzman MD POINT OF CARE TEST ENTER/E DIT ORDERABLES Final Result * (ABNORMAL) Albumin, Random Urine W/Creatinine (11/12/2024 12:33 PM EST) Creatinine, Urine 151.44 mg/dL [facility] Microalbumin Urine 134.0 mg/L H [facility] Microalbum Creatinine Ratio Ur 88.4(H) <30 ug/mg cr [facility] Comment:Albumin/Creatinine R atio Reference Ranges: Normal: < 30 ug/mg creatinine Microalbuminuria: 30 - 300 ug/mg creatinineClinical Albuminuria: > 300 ug/mg creatinine 11/12/2024 12:3 3 PM EST 11/12/2024 1:45 PM EST us Katelynn Guzman MD LAB URINE ORDERABLES Final Result [facility] [address] [place] [phone] * (ABNORMAL) Lipid Panel, Standard (07/02/2024 8:57 AM EDT) Triglycerides 159(H) <150 mg/dL [facility] Comment:Desirable Triglyceri de: less than 150 mg/dLBorderline High Triglyceride 150-199 mg/dLHigh Triglyceride: 200-499 mg/dLVery High Triglyceride: greater than or equal to 5OO mg/dL Cholesterol 177 <200 mg/dL [facility] Comment:Desirable Cholestero l: less than 200 mg/dLBorderline High Cholesterol: 200-239 mg/dLHigh Cholesterol: greater than 239 mg/dL LDL Cholesterol Calculated 77 <100 mg/dL [facility] Comment:Desirable LDL: less than 100 mg/dLNear Optimal/Above Optimal LDL: 110- 129 mg/dLBorderline High LDL: 130-159 mg/dLHigh LDL: 160-189 mg/dLVery High LDL: greater than or equal to 190 mg/dL HDL Cholesterol 69 >40 mg/dL [facility] Comment:Desirable HDL: great er than 40 mg/dL Note: This HDL assay may give artificially low results in patients with liver disease. 07/02/2024 8:57 AM EDT 07/02/2024 11:23 AM EDT Katelynn Guzman MD LAB BLOOD ORDERABLES Final Result [facility] [address] [place] [address] [phone] * Colonoscopy (11/10/2023) Colonoscopy Normal Normal Comment:fh colon ca done meron h Dr. Robertson Historical Provider HEALTH MAINTENANCE Final Result * Diabetes Eye Exam (06/12/2023) [facility] Eye Exam Normal Normal Comment:[facility] Susanna Limon Historical Provider HEALTH MAINTENANCE Final Result * Hepatitis C Antibody (12/07/2020 12:18 PM EST) [facility] Hepatitis C Antibody Nonreactive Blood 12/07/2020 12:1 8 PM EST Historical Provider POINT OF CARE TEST ENTER/ EDIT ORDERABLES Final Result * HIV 1/2 ANTIGEN/ANTIBODY,FOURTH GENERATION W/RFL (12/07/2020 11:38 AM EST) [facility] HIV-1/2 ANTIGEN AND ANTIBODIES, 4TH GENERATION W/ REFLEX NON-REACT SIDNEY NON-REACT SIDNEY [facility] Comment: HIV-1 antigen and HIV-1/HIV-2 antibodies were not detected. There is no laboratory evidence of HIV infection. PLEASE NOTE: This information has been disclosed to you from records whose confidentiality may be protected by state law. If your state requires such protection, then the state law prohibits you from making any further disclosure of the information without the specific written consent of the person to whom it pertains, or as otherwise permitted by law. A general authorization for the release of medical or other information is NOT sufficient for this purpose. For additional information please refer to http://education.[employer]inf[employer]/faq/NMW788 (This link is being provided for informational/ educational purposes only.) The performance of this assay has not been clinically validated in patients less than 2 years old. 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 Advance Directives and Living Will 07/29/2024 2:10 PM Health Care Proxy Care Teams Amusement Ride Inspector Relationship Specialty Start Date End Date [place], [place] Katelynn [address] [place] [address] PCP - General Family Medicine 10/26/13 Heena Howard PharmD [address] [place] [address] Pharmacist Internal Medicine 09/26/22 Jere Khoury MD [address] [place] [address] Hematology and Oncology 09/20/24 Susanna Garibay [address] [place] [address] Ophthalmology 10/29/24 Cely Kothari [address] [place] [address] [place] [address] Pulmonary Disease 11/16/24 Ghislaine Stone Psychiatry 10/26/24
--- OUTSIDE RECORDS SUMMARY | 2025-06-29 12:42 | XMS_ITS | Encounter Summary ---
Author Organization [employer] Address [address] [facility] 7t [place] [address] Care Team Providers Care Scarifier Operator Name Role Phone Katelynn Guzman MD Primary Care Provider +- [phone] Heena Howard PharmD Unavailable [phone] Jere Khoury MD Unavailable [phone] Susanna Garibay Unavailable Unavailable Cely Kothari Unavailable [phone] Encounter Details Date Type Department Care Team (Late st Contact Info) Description 06/18/2024 Abstract [facility] [address] [place], [place] [phone] Katelynn Guzman MD [address] [place], [place] [phone] Social History Tobacco Use Types Packs/Day Years [...] Description 07/18/2025 10:45 AM EDT Office Visit [address] [address] Katelynn Guzman MD [address] [place] [address] 07/25/2025 11:30 AM EDT Medication Management [address] [address] Heena Howard, JosephD [address] [place] [address] 07/26/2025 1:00 PM EDT Clinical Support [address] [address] documented as of this encounter Goals Goal Patient Goal Type Associated Problems Recent Progress Patient-Stated? Author Hemoglobin A1c < 7 Result Component 7.9(05/23/2025 3:19 PM EDT) No Heena Howard, JosephD documented as of this encounter Procedures Procedure Name Priority Date/Time Associated Diagnosis Comments MAMMOGRAPHY Routine 06/18/2024 1:59 PM EDT documented in this encounter Results * Mammography (06/18/2024 1:59 PM EDT) HM Mammogram BIRADS 2 Normal, Abnormal, BIRADS 1 , BIRADS 2 Anatomical Region Laterality Modality Other us Historical Provider HEALTH MAINTENANCE Final Result documented in this encounter Visit Diagnoses Not on filedocumented in this encounter Additional Health Concerns Assessment Noted Time PHQ-9 Depression Total Score: 0 04/07/20 24 2:36 PM EDT documented as of this encounter Care Teams Scarifier Operator Relationship Specialty Start Date End Date Katelynn Guzman MD [address] [place] [address] PCP - General Family Medicine 10/26/13 Heena Howard, JosephD [address] [place] [address] Pharmacist Internal Medicine 09/26/22 Jere Khoury MD [address] [place] [address] Hematology and Oncology 09/20/24 Susanna Garibay [address] [place] [address] Ophthalmology 10/29/24 Cely Kothari [address] [place] [address] [place] [address] Pulmonary Disease 11/16/24 Ghislaine Stone Psychiatry 10/26/24 documented as of this encounter
--- OUTSIDE RECORDS SUMMARY | 2025-06-29 12:42 | XMS_ITS | Encounter Summary ---
Author Organization [employer] Address [address] [facility] [address] 7[address] [place] [address] Care Team Providers Care Inspector Watch Parts Name Role Phone Katelynn Guzman MD Primary Care Provider +- [phone] Heena Howard PharmD Unavailable [phone] eJre Khoury MD Unavailable [phone] Susanna Garibay Unavailable Unavailable Cely Kothari Unavailable [phone] Reason for Visit * Reason Comments Med Refill Encounter Details Date Type Department Care Team (Late st Contact Info) Description 06/23/2024 Refill [facility] MED & PEDS [address] [place], [place] [phone] Katelynn Guzman MD [address] [place] [address] Acquired hypothyroidism Social History Tobacco Use Types [...] Description 07/18/2025 10:45 AM EDT Office Visit [facility] MEDICINE [address] [place] [address] Katelynn Guzman MD [address] [place] [address] 07/25/2025 11:30 AM EDT Medication Management [address] [address] Heena Howard, PharmD [address] [place] [address] 07/26/2025 1:00 PM EDT Clinical Support [address] [address] documented as of this encounter Goals Goal Patient Goal Type Associated Problems Recent Progress Patient-Stated? Author Hemoglobin A1c < 7 Result Component 7.9(05/23/2025 3:19 PM EDT) No Heena Howard, PharmD documented as of this encounter Visit Diagnoses Diagnosis Acquired hypothyroidism Unspecified hypothyroidism documented in this encounter Additional Health Concerns Assessment Noted Time PHQ-9 Depression Total Score: 0 04/07/20 24 2:36 PM EDT documented as of this encounter Care Teams Inspector Watch Parts Relationship Specialty Start Date End Date Katelynn Guzman MD [address] [place] [address] PCP - General Family Medicine 10/26/13 Heena Howard, PharmD [address] [place] [address] Pharmacist Internal Medicine 09/26/22 Jere Khoury MD [address] [place] [address] Hematology and Oncology 09/20/24 Susanna Garibay [address] [place] [address] Ophthalmology 10/29/24 Cely Kothari [address] [place] [address] [place] [address] Pulmonary Disease 11/16/24 Ghislaine Stone Psychiatry 10/26/24 documented as of this encounter
--- OUTSIDE RECORDS SUMMARY | 2025-06-29 12:42 | XMS_ITS | Encounter Summary ---
Author Organization [employer] Address [address] [facility] [address] 7[address] [place] [address] Care Team Providers Care Manufacturing Lab Technician Name Role Phone Katelynn Guzman MD Primary Care Provider +- [phone] Heena Howard PharmD Unavailable [phone] Jere Khoury MD Unavailable [phone] Susanna Garibay Unavailable Unavailable Cely Kothari Unavailable [phone] Encounter Details Date Type Department Care Team (Latest Contact Info) Description 06/24/2025 Travel Social History Tobacco Use Types Packs/Day [...] 07/18/2025 10:45 AM EDT Office Visit [address] [address] Katelynn Guzman MD [address] [place] [address] 07/25/2025 11:30 AM EDT Medication Management [address] [address] Heena Howard, PharmD [address] [place] [address] 07/26/2025 1:00 PM EDT Clinical Support [address] [address] documented as of this encounter Goals Goal [...] documented as of this encounter Care Teams Manufacturing Lab Technician Relationship Specialty Start Date End Date Katelynn Guzman MD [address] [place] [address] PCP - General Family Medicine 10/26/13 Heena Howard, JosephD [address] [place] [address] Pharmacist Internal Medicine 09/26/22 Jere Khoury MD [address] [place] [address] Hematology and Oncology 09/20/24 Susanna Garibay [address] [place] [address] Ophthalmology 10/29/24 Cely Kothari [address] [place] [address] [place] [address] Pulmonary Disease 11/16/24 Ghislaine Stone Psychiatry 10/26/24 documented as of this encounter
--- OUTSIDE RECORDS SUMMARY | 2025-06-29 12:42 | XMS_ITS | Encounter Summary ---
Author Organization [employer] Address [address] [facility] [address] [place] [address] Care Team Providers Care Blue Split Trimmer Name Role Phone Katelynn Guzman MD Primary Care Provider + [phone] Heena Howard PharmD Unavailable [phone] Jere Khoury MD Unavailable [phone] Susanna Garibay Unavailable Unavailable Cely Kothari Unavailable [phone] Reason for Visit * Reason Comments Med Refill Encounter Details Date Type Department Care Team (Late st Contact Info) Description 10/12/[address] [facility] [address] [place], [place] [phone] Heena Howard, PharmD [address] [place] [address] Type 2 diabetes mellitus with diabetic neuropathy, with long-term current use of insulin ([facility]) Social History Tobacco Use Types Packs/Day Years [...] 10:45 AM EDT Office Visit [facility] MEDICINE [address] [place] [address] Katelynn Guzman MD [address] [place] [address] 07/25/2025 11:30 AM EDT Medication Management [address] [address] Heena Howard, PharmD [address] [place] [address] 07/26/2025 1:00 PM EDT Clinical Support [address] [place] [address] documented as of this encounter Goals Goal Patient Goal Type Associated Problems Recent Progress Patient-Stated? Author Hemoglobin A1c < 7 Result Component 7.9(05/23/2025 3:19 PM EDT) No Heena Howard, Luly documented as of this encounter Visit Diagnoses Diagnosis Type 2 diabetes mellitus with diabetic neuropathy, with long-term current use of insulin ([facility]) documented in this encounter Additional Health Concerns Assessment Noted Time PHQ-9 Depression Total Score: 9 07/28/20 24 4:10 PM EDT documented as of this encounter Care Teams Blue Split Trimmer Relationship Specialty Start Date End Date Katelynn Guzman MD [address] [place] [address] PCP - General Family Medicine 10/26/13 Heena Howard, PharmD [address] [place] [address] Pharmacist Internal Medicine 09/26/22 Jere Khoury MD [address] [place] [address] Hematology and Oncology 09/20/24 Susanna Garibay [address] [place] [address] Ophthalmology 10/29/24 Cely Kothari [address] [place] [address] [place] [address] Pulmonary Disease 11/16/24 Ghislaine Stone Psychiatry 10/26/24 documented as of this encounter
--- OUTSIDE RECORDS SUMMARY | 2025-06-29 12:42 | XMS_ITS | Encounter Summary ---
Author Organization [employer] Address [address] [facility] [address] [place] [address] Care Team Providers Care Occupational Health And Safety Adviser Name Role Phone Katelynn Guzman MD Primary Care Provider +- [phone] Heena Howard PharmD Unavailable [phone] Jere Khoury MD Unavailable [phone] Susanna Garibay Unavailable Unavailable Cely Kothari Unavailable [phone] Reason for Visit * Reason Comments Med Refill Encounter Details Date Type Department Care Team (Late st Contact Info) Description 07/24/2023 Refill [facility] CH[facility] MED & PEDS [address] [place], [place] [phone] Katelynn Guzman MD [address] [place] [address] Type 2 diabetes mellitus with diabetic neuropathy, with long-term current use of insulin ([facility]); Pain Social History Tobacco Use Types Packs/Day [...] 07/18/2025 10:45 AM EDT Office Visit [facility] MEDICINE [address] [place] [address] Katelynn Guzman MD [address] [place] [address] 07/25/2025 11:30 AM EDT Medication Management [address] [address] Heena Howard, Luly [address] [place] [address] 07/26/2025 1:00 PM EDT Clinical Support [address] [address] documented as of this encounter Goals Goal Patient Goal Type Associated Problems Recent Progress Patient-Stated? Author Hemoglobin A1c < 7 Result Component 7.9(05/23/2025 3:19 PM EDT) No Heena Howard, PharmD documented as of this encounter Visit Diagnoses Diagnosis Type 2 diabetes mellitus with diabetic neuropathy, with long-term current use of insulin ([facility]) Pain Generalized pain documented in this encounter Additional Health Concerns Assessment Noted Time PHQ-9 Depression Total Score: 5 11/25/19 23 11:12 AM EST documented as of this encounter Care Teams Occupational Health And Safety Adviser Relationship Specialty Start Date End Date Katelynn Guzman MD [address] [place] [address] PCP - General Family Medicine 10/26/13 Heena Howard, JosephD [address] [place] [address] Pharmacist Internal Medicine 09/26/22 Jere Khoury MD [address] [place] [address] Hematology and Oncology 09/20/24 Susanna Garibay [address] [place] [address] Ophthalmology 10/29/24 Cely Kothari [address] [place] [address] [place] [address] Pulmonary Disease 11/16/24 Ghislaine Stone Psychiatry 10/26/24 documented as of this encounter
--- OUTSIDE RECORDS SUMMARY | 2025-06-29 12:42 | XMS_ITS | Encounter Summary ---
Author Organization [employer] Address 75 [facility] 7t [place] [address] Care Team Providers Care National Account Representative Name Role Phone Katelynn Guzman MD Primary Care Provider +- [phone] Heena Howard PharmD Unavailable +[phone]- [phone] Jere Khoury MD Unavailable [phone] Susanna Garibay Unavailable Unavailable Cely Kothari Unavailable [phone] Encounter Details Date Type Department Care Team (Late st Contact Info) Description 06/29/2025 Orders Only GENERIC EXTERNAL DATA [...] Description 07/18/2025 10:45 AM EDT Office Visit [facility] [address] [place] [address] Katelynn Guzman MD [address] [place] [address] 07/25/2025 11:30 AM EDT Medication Management [address] [address] Heena Howard, JosephD [address] [place] [address] 07/26/2025 1:00 PM EDT Clinical Support [address] [address] documented as of this encounter Goals Goal Patient Goal Type Associated Problems Recent Progress Patient-Stated? Author Hemoglobin A1c < 7 Result Component 7.9(05/23/2025 3:19 PM EDT) No Heena Howard, Luly documented as of this encounter Procedures Procedure Name Priority Date/Time Associated Diagnosis Comments CBC WITH AUTO DIFFERENTIAL Routine 06/29/2025 10:28 AM EDT documented in this encounter Results * (ABNORMAL) CBC auto differential (06/29/2025 10:28 AM EDT) White Blood Count 7.2 4.8 - 10.8 X10*3/uL [facility] Red Blood Count 5.05 4.20 - 5.50 X10*6/uL [facility] Hemoglobin 13.3 12.0 - 16.0 g/dl [facility] Hematocrit 40.7 37.0 - 47.0 % [facility] Mean Corpuscular Volume 80.6 80.0 - 98.0 fL [facility] Mean Corpuscular Hemoglobin 26.3(L) 27.0 - 33.0 pg [facility] Mean Corpuscular HGB Conc 32.7 31.0 - 35.0 g/dl [facility] Red Cell Distribution Width 15.1 11.0 - 16.0 % [facility] Platelet Count 157(L) 160 - 400 X10*3/uL [facility] Mean Platelet Volume 12.7(H) 9.4 - 12.3 fL [facility] Neutrophils Percent Auto 63.1 45 - 73 % [facility] Imm Gran Pct Auto 0.3 0.0 - 0.4 % [facility] Lymphocytes Percent Auto 19.1(L) 20 - 40 % [facility] Monocytes Percent Auto 13.0(H) 2 - 11 % [facility] Eosinophils Percent Auto 3.5 0 - 4 % [facility] Basophils Percent Auto 1.0 0 - 2 % [facility] NRBC Pct Auto 0.0 0.0 - 0.2 /100WBC [facility] Neutrophils Absolute Auto 4.6 2.0 - 8.3 x10*3/uL [facility] Imm Gran Abs Auto 0.02 0.00 - 0.03 X10*3/uL [facility] Lymphocytes Absolute Auto 1.4 1.2 - 4.9 X10*3/uL [facility] Monocytes Absolute Auto 0.9 0.1 - 1.2 X10*3/uL [facility] Eosinophils Absolute Auto 0.3 0.0 - 0.4 X10*3/uL [facility] Basophils Absolute Auto 0.1 0.0 - 0.2 X10*3/uL [facility] NRBC Abs Auto 0.000 0.0 - 0.012 X10*3/uL [facility] 06/29/2025 10:2 8 AM EDT 06/29/2025 11:14 AM EDT us Generic External Data Provider LAB BLOOD ORDERAB LES Final Result [facility] [address] [place] [address] [phone] documented in this encounter Visit Diagnoses Not on filedocumented in this encounter Additional Health Concerns Assessment Noted Time PHQ-9 Depression Total Score: 9 07/28/20 24 4:10 PM EDT documented as of this encounter Care Teams National Account Representative Relationship Specialty Start Date End Date Katelynn Guzman MD [address] [place] [address] PCP - General Family Medicine 10/26/13 Heena Howard PharmD [address] [place] [address] Pharmacist Internal Medicine 09/26/22 Jere Khoury MD [address] [place] [address] Hematology and Oncology 09/20/24 Susanna Garibay [address] [place] [address] Ophthalmology 10/29/24 Cely Kothari [address] [place] [address] [place] [address] Pulmonary Disease 11/16/24 Ghislaine Stone Psychiatry 10/26/24 documented as of this encounter
[2025-06-29 13:54] LABS: Alanine Aminotransferase 37 U/L (0-31); Albumin Level 4.2 g/dL (3.5-5.0); Alkaline Phosphatase 102 U/L (39-117); Anion Gap 12 (12-20); Aspartate Amino Transferase 37 U/L (5-31); Blood Urea Nitrogen 19 mg/dL (9-16); Calcium 9.5 mg/dL (8.4-10.2); Carbon Dioxide 31 mmol/L (22-29); Chloride 97 mmol/L (96-108); Cholesterol 124 mg/dL (<200); Estimated Glomerular Filt Rate 48; HDL Cholesterol 35 mg/dL (>40); Potassium 4.2 mmol/L (3.3-5.1); Sodium 136 mmol/L (135-145); Total Protein 7.0 g/dL (6.5-8.0); Triglycerides 149 mg/dL (<150)
== END 2025-06-29 10:22 | disposition home or self-care (01) ==
LOC: HO.HHCL 10:21
PROVIDERS: Internal Medicine Medical Oncology; PCP Family Medicine; Visit Provider Family Medicine
DX: D69.3 Immune thrombocytopenic purpura (principal); E11.9 Type 2 diabetes mellitus without complications; Z79.4 Long term (current) use of insulin
CPT/HCPCS: 36415; 80053; 80061; 85025

== ENCOUNTER 2025-06-30 09:26 | Outpatient (REF) | payer MEDICAID, SELFPAY ==
--- OUTSIDE RECORDS SUMMARY | 2025-06-30 11:02 | XMS_ITS | Encounter Summary ---
Author Organization [employer] Address [address] [facility] [address] 7t [place] [address] Care Team Providers Care Doctor Assistant Name Role Phone Katelynn Guzman MD Primary Care Provider + [phone] Heena Howard PharmD Unavailable [phone]- [phone] Jere Khoury MD Unavailable [phone] Susanna Garibay Unavailable Unavailable Cely Kothari Unavailable [phone] Reason for Visit * Reason Comments Med Refill Encounter Details Date Type Department Care Team (Late st Contact Info) Description 09/15/2024 Refill [facility] [address] [place], [place] [phone] Heena Howard, PharmD [address] [place] [address] Type 2 diabetes mellitus with diabetic neuropathy, with long-term current use of insulin ([facility]) Social History Tobacco Use Types [...] Description 07/18/2025 10:45 AM EDT Office Visit [facility] [address] [place] [address] Katelynn Guzman MD [address] [place] [address] 07/25/2025 11:30 AM EDT Medication Management [address] [address] Heena Howard, PharmD [address] [place] [address] 07/26/2025 1:00 PM EDT Clinical Support [address] [place] [address] documented as of this encounter Goals Goal Patient Goal Type Associated Problems Recent Progress Patient-Stated? Author Hemoglobin A1c < 7 Result Component 7.9(05/23/2025 3:19 PM EDT) No Heena Howard, Luly documented as of this encounter Visit Diagnoses Diagnosis Type 2 diabetes mellitus with diabetic neuropathy, with long-term current use of insulin ([facility]) documented in this encounter Additional Health Concerns Assessment Noted Time PHQ-9 Depression Total Score: 9 07/28/20 24 4:10 PM EDT documented as of this encounter Care Teams Doctor Assistant Relationship Specialty Start Date End Date Katelynn Guzman MD [address] [place] [address] PCP - General Family Medicine 10/26/13 Heena Howard, PharmD [address] [place] [address] Pharmacist Internal Medicine 09/26/22 Jere Khoury MD [address] [place] [address] Hematology and Oncology 09/20/24 Susanna Garibay [address] [place] [address] Ophthalmology 10/29/24 Cely Kothari [address] [place] [address] [place] [address] Pulmonary Disease 11/16/24 Ghislaine Stone Psychiatry 10/26/24 documented as of this encounter
--- OUTSIDE RECORDS SUMMARY | 2025-06-30 11:02 | XMS_ITS | Encounter Summary ---
Author Organization [employer] Address 75 [facility] 7t [place] [address] Care Team Providers Care [employer] Teacher Name Role Phone Katelynn Guzman MD Primary Care Provider +- [phone] Heena Howard PharmD Unavailable [phone] Jere Khoury MD Unavailable [phone] Susanna Garibay Unavailable Unavailable Cely Kothari Unavailable [phone] Encounter Details Date Type Department Care Team (Late Contact Info) Description 06/26/2023 Abstract [facility] [address] [place] [address] Katelynn Guzman MD [address] [place] [address] Social History Tobacco Use Types Packs/Day Years [...] Description 07/18/2025 10:45 AM EDT Office Visit [address] [address] Katelynn Guzman MD [address] [place] [address] 07/25/2025 11:30 AM EDT Medication Management [address] [address] Heena Howard, PharmD [address] [place] [address] 07/26/2025 1:00 PM EDT Clinical Support [address] [address] documented as of this encounter Goals Goal [...] documented as of this encounter Care Teams [employer] Teacher Relationship Specialty Start Date End Date Katelynn Guzman MD [address] [place] [address] PCP - General Family Medicine 10/26/13 Heena Howard, PharmD [address] [place] [address] Pharmacist Internal Medicine 09/26/22 Jere Khoury MD [address] [place] [address] Hematology and Oncology 09/20/24 Susanna Garibay 180 [place] [address] Ophthalmology 10/29/24 Cely Kothari [address] [place] [address] [place] [address] Pulmonary Disease 11/16/24 Ghislaine Momineroa Psychiatry 10/26/24 documented as of this encounter
--- OUTSIDE RECORDS SUMMARY | 2025-06-30 11:02 | XMS_ITS | Encounter Summary ---
Author Organization [employer] Address 75 [facility] 7t [place] [address] Care Team Providers Care Overnight Cashier Name Role Phone Katelynn Guzman MD Primary Care Provider +- [phone] Heena Howard PharmD Unavailable [phone]- [phone] Jere Khoury MD Unavailable [phone] Susanna Garibay Unavailable Unavailable Cely Kothari Unavailable [phone] Reason for Visit * Reason Onset Date Comments cx follow up appt 02/28/2025 Encounter Details Date Type Department Care Team (Late st Contact Info) Description 02/28/2025 Telephone [facility] [address] [place] [address] Jerson Hernandez DDS [address] [place] [address] cx follow up appt Social History Tobacco [...] Upcoming Encounters Date Type Department Care Team ([facility] st Contact Info) Description 07/18/2025 10:45 AM EDT Office Visit [facility] [address] [place] [address] Katelynn Guzman MD [address] [place] [address] 07/25/2025 11:30 AM EDT Medication Management [address] [address] Heena Howard PharmD 230 [place] [address] 07/26/2025 1:00 PM EDT Clinical Support [address] [address] documented as of this encounter Goals Goal [...] documented as of this encounter Care Teams Overnight Cashier Relationship Specialty Start Date End Date Katelynn Guzman MD 230 [place] [address] PCP - General Family Medicine 10/26/13 Heena Howard, PharmD [address] [place] [address] Pharmacist Internal Medicine 09/26/22 Jere Khoury MD [address] [place] [address] Hematology and Oncology 09/20/24 Susanna Garibay 180 [place] [address] Ophthalmology 10/29/24 Cely Kothari [address] [place] [address] Ale [facility] [place] [address] Pulmonary Disease 11/16/24 Ghislaine Stone Psychiatry 10/26/24 documented as of this encounter
--- OUTSIDE RECORDS SUMMARY | 2025-06-30 11:02 | XMS_ITS | Encounter Summary ---
Author Organization [employer] Address 75 [facility] 7t [place] [address] Care Team Providers Care Accountant Assistant Name Role Phone Katelynn Guzman MD Primary Care Provider +- [phone] Heena Howard PharmD Unavailable [phone]- [phone] Jere Khoury MD Unavailable [phone] Susanna Garibay Unavailable Unavailable Cely Kothari Unavailable [phone] Reason for Visit * Reason Onset Date Comments Med Refill 05/19/2025 Encounter Details Date Type Department Care Team (Late st Contact Info) Description 05/19/2025 Telephone [facility] 230 [place], [place] [phone] Katelynn Guzman MD 230 [place], [place] [phone] Med Refill Social History Tobacco Use Types [...] 5 % patch To be sent to: [facility] [place]- - ZINA Beverly - [address] documented in this encounter Plan of Treatment Upcoming Encounters Date Type Department Care Team (Late st Contact Info) Description 07/18/2025 10:45 AM EDT Office Visit [facility] [address] [place] [address] Katelynn Guzman MD [address] [place] [address] 07/25/2025 11:30 AM EDT Medication Management [address] [address] Heena Howard, PharmD [address] [place] [address] 07/26/2025 1:00 PM EDT Clinical Support [address] [address] documented as of this encounter Goals Goal [...] documented as of this encounter Care Teams Accountant Assistant Relationship Specialty Start Date End Date Katelynn Guzman MD [address] [place] [address] [phone] PCP - General Family Medicine 10/26/13 Heena Howard, PharmD [address] [place] [address] Pharmacist Internal Medicine 09/26/22 Jere Khoury MD [address] [place] [address] Hematology and Oncology 09/20/24 Susanna Garibay 180 [place] [address] Ophthalmology 10/29/24 Cely Kothari [address] [place] [address] [address] [place] [address] Pulmonary Disease 11/16/24 Ghislaine Ritter Psychiatry 10/26/24 documented as of this encounter
--- OUTSIDE RECORDS SUMMARY | 2025-06-30 11:02 | XMS_ITS | Encounter Summary ---
Author Organization [email or web address] Address [address] [facility] [address] 7t [place] [address] Care Team Providers Care Vinegar Maker Name Role Phone Katelynn Guzman MD Primary Care Provider +- [phone] Heena Howard PharmD Unavailable [phone] Jere Khoury MD Unavailable [phone] Susanna Garibay Unavailable Unavailable Cely Kothari Unavailable [phone] Encounter Details Date Type Department Care Team (Late st Contact Info) Description 06/02/2024 Orders Only [facility] 230 [place], [place] [phone] Katelynn Guzman MD [address] [place], [place] [phone] Social History Tobacco Use Types Packs/Day Years [...] Description 07/18/2025 10:45 AM EDT Office Visit [address] [address] Katelynn Guzman MD [address] [place] [address] 07/25/2025 11:30 AM EDT Medication Management [address] [address] Heena Howard PharmD [address] [place] [address] 07/26/2025 1:00 PM EDT Clinical Support [address] [address] documented as of this encounter Goals Goal [...] documented as of this encounter Care Teams Vinegar Maker Relationship Specialty Start Date End Date Katelynn Guzman MD [address] [place] [address] PCP - General Family Medicine 10/26/13 Heena Howard, Luly [address] [place] [address] Pharmacist Internal Medicine 09/26/22 Jere Khoury MD [address] [place] [address] Hematology and Oncology 09/20/24 Susanna Garibay [address] [place] [address] Ophthalmology 10/29/24 Cely Kothari [address] [place] [address] [place] [address] Pulmonary Disease 11/16/24 Ghislaine Stone Psychiatry 10/26/24 documented as of this encounter
--- OUTSIDE RECORDS SUMMARY | 2025-06-30 11:02 | XMS_ITS | Encounter Summary ---
Author Organization [employer] Address 75 [facility] 7t [place] [address] Care Team Providers Care Rope Laying Machine Operator Name Role Phone Katelynn Guzman MD Primary Care Provider +- [phone] Heena Howard PharmD Unavailable [phone]- [phone] Jere Khoury MD Unavailable [phone] Susanna Garibay Unavailable Unavailable Cely Kothari Unavailable [phone] Reason for Visit * Reason Comments Med Refill Encounter Details Date Type Department Care Team (Late st Contact Info) Description 06/30/2023 Refill [facility] [address] [place], [place] [phone] Priscilla Long MD 230 [place] [address] Type 2 diabetes mellitus with diabetic neuropathy, with long-term current use of insulin ([facility]) Social History Tobacco [...] Description 07/18/2025 10:45 AM EDT Office Visit [address] [address] Katelynn Guzman MD [address] [place] [address] 07/25/2025 11:30 AM EDT Medication Management [address] [address] Heena Howard PharmD [address] [place] [address] 07/26/2025 1:00 PM EDT Clinical Support [address] [address] documented as of this encounter Goals Goal Patient Goal Type Associated Problems Recent Progress Patient-Stated? Author Hemoglobin A1c < 7 Result Component 7.9(05/23/2025 3:19 PM EDT) No Heena Howard, PharmD documented as of this encounter Visit Diagnoses Diagnosis Type 2 diabetes mellitus with diabetic neuropathy, with long-term current use of insulin ([facility]) documented in this encounter Additional Health Concerns Assessment Noted Time PHQ-9 Depression Total Score: 5 11/25/19 23 11:12 AM EST documented as of this encounter Care Teams Rope Laying Machine Operator Relationship Specialty Start Date End Date Katelynn Guzman MD [address] [place] [address] PCP - General Family Medicine 10/26/13 Heena Howard, PharmD [address] [place] [address] Pharmacist Internal Medicine 09/26/22 Jere Khoury MD 575 [place] [address] Hematology and Oncology 09/20/24 Susanna Garibay [address] [place] [address] Ophthalmology 10/29/24 Cely Kothari [address] [place] [address] [address] [place] [address] [phone] Pulmonary Disease 11/16/24 Ghislaine Momineroa Psychiatry 10/26/24 documented as of this encounter
--- OUTSIDE RECORDS SUMMARY | 2025-06-30 11:02 | XMS_ITS | Encounter Summary ---
Author Organization [employer] Address [address] [facility] [address] 7t [place] [address] Care Team Providers Care Bakery Demonstrator Name Role Phone Katelynn Guzman MD Primary Care Provider +- [phone] Heena Howard PharmD Unavailable [phone] Jere Khoury MD Unavailable [phone] Susanna Garibay Unavailable Unavailable Cely Kothari Unavailable [phone] Reason for Visit * Reason Comments Med Refill Encounter Details Date Type Department Care Team (Late st Contact Info) Description 07/24/2023 Refill [facility] [address] [place], [place] [phone] Katelynn Guzman MD 230 [place] [address] Type 2 diabetes mellitus with diabetic neuropathy, with long-term current use of insulin ([facility]); Pain Social History Tobacco Use Types [...] 07/18/2025 10:45 AM EDT Office Visit [facility] [address] [place] [address] Katelynn Guzman MD [address] [place] [address] 07/25/2025 11:30 AM EDT Medication Management [address] [address] Heena Howard, Luly [address] [place] [address] 07/26/2025 1:00 PM EDT Clinical Support [address] [address] documented as of this encounter Goals Goal Patient Goal Type Associated Problems Recent Progress Patient-Stated? Author Hemoglobin A1c < 7 Result Component 7.9(05/23/2025 3:19 PM EDT) No Heena Howard, PharmD documented as of this encounter Visit Diagnoses Diagnosis Type 2 diabetes mellitus with diabetic neuropathy, with long-term current use of insulin ([facility]) Pain Generalized pain documented in this encounter Additional Health Concerns Assessment Noted Time PHQ-9 Depression Total Score: 5 11/25/19 23 11:12 AM EST documented as of this encounter Care Teams Bakery Demonstrator Relationship Specialty Start Date End Date Katelynn Guzman MD 230 [place] [address] PCP - General Family Medicine 10/26/13 Heena Howard, JosephD [address] [place] [address] Pharmacist Internal Medicine 09/26/22 Jere Khoury MD [address] [place] [address] Hematology and Oncology 09/20/24 Susanna Garibay [address] [place] [address] Ophthalmology 10/29/24 Cely Kothari [address] [place] [address] [place] [address] Pulmonary Disease 11/16/24 Ghislaine Stone Psychiatry 10/26/24 documented as of this encounter
--- OUTSIDE RECORDS SUMMARY | 2025-06-30 11:02 | XMS_ITS | Encounter Summary ---
Author Organization [employer] Address [address] [facility] [address] 7t [place] [address] Care Team Providers Care Linux Network Engineer Name Role Phone Katelynn Guzman MD Primary Care Provider + [phone] Heena Howard PharmD Unavailable [phone] Jere Khoury MD Unavailable [phone] Susanna Garibay Unavailable Unavailable Cely Kothari Unavailable [phone] Reason for Visit * Reason Comments Med Refill Encounter Details Date Type Department Care Team (Late st Contact Info) Description 12/14/2024 [facility]ill [facility] [address] [place], [place] [phone] Katelynn Guzman MD 230 [place] [address] Dry eyes Social History Tobacco Use Types [...] 07/18/2025 10:45 AM EDT Office Visit [address] [address] Katelynn Guzman MD [address] [place] [address] 07/25/2025 11:30 AM EDT Medication Management [address] [address] Heena Howard, PharmD [address] [place] [address] 07/26/2025 1:00 PM EDT Clinical Support [address] [address] documented as of this encounter Goals Goal [...] documented as of this encounter Care Teams Linux Network Engineer Relationship Specialty Start Date End Date Katelynn Guzman MD 230 [place] [address] PCP - General Family Medicine 10/26/13 Heena Howard, PharmD [address] [place] [address] Pharmacist Internal Medicine 09/26/22 Jere Khoury MD [address] [place] [address] Hematology and Oncology 09/20/24 Susanna Garibay [address] [place] [address] Ophthalmology 10/29/24 Cely Kothari [address] [place] [address] Pulmonary Disease 11/16/24 Ghislaine Stone Psychiatry 10/26/24 documented as of this encounter
--- OUTSIDE RECORDS SUMMARY | 2025-06-30 11:02 | XMS_ITS | Encounter Summary ---
Author Organization [employer] Address 75 [facility] 7t [place] [address] Care Team Providers Care Shoe Ironer Name Role Phone Katelynn Guzman MD Primary Care Provider +- [phone] Heena Howard PharmD Unavailable [phone] Jere Khoury MD Unavailable [phone] Susanna Garibay Unavailable Unavailable Cely Kothari Unavailable [phone] Encounter Details Date Type Department Care Team (Late st Contact Info) Description 10/18/2022 Telephone [facility] 230 [place], [place] [phone] Katelynn Guzman MD 230 [place] [address] Social History Tobacco Use Types Packs/Day Years [...] Description 07/18/2025 10:45 AM EDT Office Visit [address] [address] Katelynn Guzman MD [address] [place] [address] 07/25/2025 11:30 AM EDT Medication Management [address] [address] Heena Howard PharmD [address] [place] [address] 07/26/2025 1:00 PM EDT Clinical Support [address] [address] documented as of this encounter Visit Diagnoses Not on filedocumented in this encounter Care Teams Shoe Ironer Relationship Specialty Start Date End Date Katelynn Guzman MD [address] [place] [address] PCP - General Family Medicine 10/26/13 Heena Howard PharmD [address] [place] [address] Pharmacist Internal Medicine 09/26/22 Jere Khoury MD [address] [place] [address] Hematology and Oncology 09/20/24 Susanna Garibay [address] [place] [address] Ophthalmology 10/29/24 Cely Kothari [address] [place] [address] [place] [address] Pulmonary Disease 11/16/24 Ghislaine Stone Psychiatry 10/26/24 documented as of this encounter
--- OUTSIDE RECORDS SUMMARY | 2025-06-30 11:02 | XMS_ITS | Encounter Summary ---
Author Organization [employer] Address [address] [place] [address] Care Team Providers Care Supervisor Dimension Warehouse Name Role Phone Katelynn Guzman MD Primary Care Provider +- [phone] Heena Howard PharmD Unavailable [phone] Jere Khoury MD Unavailable [phone] Susanna Garibay Unavailable Unavailable Cely Kothari Unavailable [phone] Reason for Visit * Reason Comments Med Refill Encounter Details Date Type Department Care Team (Late st Contact Info) Description 03/09/2025 Refill [facility] PEDS [address] [place], [place] [phone] Katelynn Guzman MD [address] [place] [address] Pain Social History Tobacco Use Types Packs/Day [...] Description 07/18/2025 10:45 AM EDT Office Visit [address] [address] Katelynn Guzman MD [address] [place] [address] 07/25/2025 11:30 AM EDT Medication Management [address] [address] Heena Howard, PharmD [address] [place] [address] 07/26/2025 1:00 PM EDT Clinical Support [address] [address] documented as of this encounter Goals Goal [...] as of this encounter Care Teams Supervisor [employer]ension Warehouse Relationship Specialty Start Date End Date Katelynn Guzman MD [address] [place] [address] PCP - General Family Medicine 10/26/13 Heena Howard, JosephD [address] [place] [address] Pharmacist Internal Medicine 09/26/22 Jere Khoury MD [address] [place] [address] Hematology and Oncology 09/20/24 Susanna Garibay [address] [place] [address] Ophthalmology 10/29/24 Cely Kothari [address] [place] [address] [place] [address] Pulmonary Disease 11/16/24 Ghislaine Stone Psychiatry 10/26/24 documented as of this encounter
--- OUTSIDE RECORDS SUMMARY | 2025-06-30 11:02 | XMS_ITS | Patient Health Record ---
Author Organization [facility] Address [address] [place] [address] Care Team Providers Care School Resource Officer Name Role Phone Katelynn Guzman MD Primary Care Provider Harika Michael Wells Unavailable [phone] Allergies Allergen (clinical drug ingredient) Drug/Non Drug [...] Tartrate Ac tive Artificial Tear Acti ve Dolliver 3 Active Problems Problem Type SNOMED Code ICD Code Onset Dates Problem Status W/U Status Risk Notes Problem 787637272 Encounter for screening for malignant neoplasm of colon (Z12.11) Active confirmed Problem Diverticular disease of colon (825173407) Diverticulosis of large intestine without perforation or abscess without bleeding (K57.30) Active confirmed Problem 63597244 Irritable bowel syndrome without diarrhea (K58.9) Active confirmed Problem 668262776 Other constipati on (K59.09) Active confirmed Problem Screening for malignant neoplasm of rectum (455600442) Encounter for screening for malignant neoplasm of rectum (Z12.12) Active confirmed Problem 327081997 Gastroesophageal reflux disease without esophagitis (K21.9) Active confirmed Problem 370204160 Family history o f colon cancer (Z80.0) Active confirmed Plan Of Treatment Future Test Test Name Order Date COLONOSCOPY 09/28/2015 COLONOSCOPY 08/19/2023 Insurance Providers Payer Name Payer Address Payer Phone Subscriber Number Group Number Insured Name Patient Relationship to Insured Coverage Start Date Coverage End Date [facility] [address] [place] [address] [id number] JESSICA LAST Self - patient is the [...] negative for any underlying microscopic colitis Denies [place],CVA,renal disease C.diff in 10/2014 Depression/anxiety Negative colonoscopy 2015, although a li mited bowel prep was noted ITP-sees Dr. Khoury Surgical History Surgery Date(Month/Year) hysterectomy carpal tunnel
--- OUTSIDE RECORDS SUMMARY | 2025-06-30 11:02 | XMS_ITS | Encounter Summary ---
Author Organization [employer] Address [address] [facility] 7t [place] [address] Care Team Providers Care Wood Calker Name Role Phone Katelynn Guzman MD Primary Care Provider +- [phone] Heena Howard PharmD Unavailable [phone] Jere Khoury MD Unavailable [phone] Susanna Garibay Unavailable Unavailable Cely Kothari Unavailable [phone] Encounter Details Date Type Department Care Team (Late Contact Info) Description 12/06/2022 Telephone [facility] [address] [place], [place] [phone] Katelynn Guzman MD [address] [place] [address] Social History Tobacco Use Types Packs/Day Years [...] Description 07/18/2025 10:45 AM EDT Office Visit [address] [address] Katelynn Guzman MD [address] [place] [address] 07/25/2025 11:30 AM EDT Medication Management [address] [address] Heena Howard PharmD [address] [place] [address] 07/26/2025 1:00 PM EDT Clinical Support [address] [address] documented as of this encounter Goals Goal Patient Goal Type Associated Problems Recent Progress Patient-Stated? Author Hemoglobin A1c < 7 Result Component 7.9(05/23/2025 3:19 PM EDT) No Heena Howard, PharmD documented as of this encounter Visit Diagnoses Diagnosis Type 2 diabetes mellitus with diabetic neuropathy, with long-term current use of insulin ([facility]) documented in this encounter Additional Health Concerns Assessment Noted Time PHQ-9 Depression Total Score: 5 11/25/19 23 11:12 AM EST documented as of this encounter Care Teams Wood Calker Relationship Specialty Start Date End Date Katelynn Guzman MD [address] [place] [address] PCP - General Family Medicine 10/26/13 Heena Howard, PharmD [address] [place] [address] Pharmacist Internal Medicine 09/26/22 Jere Khoury MD [address] [place] [address] Hematology and Oncology 09/20/24 Susanna Garibay [address] [place] [address] Ophthalmology 1/17/25 Cely Kothari [address] [place] [address] [address] [place] [address] Pulmonary Disease 11/16/24 Ghislaine Ritter Psychiatry 10/26/24 documented as of this encounter
--- OUTSIDE RECORDS SUMMARY | 2025-06-30 11:02 | XMS_ITS | Encounter Summary ---
Author Organization [employer] Address [address] [place] [address] Care Team Providers Care Cryptologic Technician Operator/Analyst Name Role Phone Katelynn Guzman MD Primary Care Provider + [phone] Heena Howard PharmD Unavailable [phone] Jere Khoury MD Unavailable [phone] Susanna Garibay Unavailable Unavailable Cely Kothari Unavailable [phone] Reason for Visit * Reason Comments Med Refill Encounter Details Date Type Department Care Team (Late st Contact Info) Description 10/12/2024 Refill [facility] [address] [place], [place] [phone] Heena Howard, PharmD [address] [place] [address] Type 2 diabetes mellitus with diabetic neuropathy, with long-term current use of insulin ([facility]) Social History Tobacco Use Types Packs/Day Years [...] Description 07/18/2025 10:45 AM EDT Office Visit [facility] [address] [place] [address] Katelynn Guzman MD [address] [place] [address] 07/25/2025 11:30 AM EDT Medication Management [address] [address] Heena Howard, PharmD [address] [place] [address] 07/26/2025 1:00 PM EDT Clinical Support [address] [place] [address] documented as of this encounter Goals Goal Patient Goal Type Associated Problems Recent Progress Patient-Stated? Author Hemoglobin A1c < 7 Result Component 7.9(05/23/2025 3:19 PM EDT) No Heena Howard, Luly documented as of this encounter Visit Diagnoses Diagnosis Type 2 diabetes mellitus with diabetic neuropathy, with long-term current use of insulin ([facility]) documented in this encounter Additional Health Concerns Assessment Noted Time PHQ-9 Depression Total Score: 9 07/28/20 24 4:10 PM EDT documented as of this encounter Care Teams Cryptologic Technician Operator/Analyst Relationship Specialty Start Date End Date Katelynn Guzman MD [address] [place] [address] PCP - General Family Medicine 10/26/13 Heena Howard, PharmD [address] [place] [address] Pharmacist Internal Medicine 09/26/22 Jere Khoury MD [address] [place] [address] Hematology and Oncology 09/20/24 Susanna Garibay [address] [place] [address] Ophthalmology 10/29/24 Cely Kothari [address] [place] [address] [place] [address] Pulmonary Disease 11/16/24 Ghislaine Stone Psychiatry 10/26/24 documented as of this encounter
--- OUTSIDE RECORDS SUMMARY | 2025-06-30 11:02 | XMS_ITS | Encounter Summary ---
Author Organization [employer] Address [address] [facility] 7t [place] [address] Care Team Providers Care Fire Equipment Inspector Name Role Phone Katelynn Guzman MD Primary Care Provider +- [phone] Heena Howard PharmD Unavailable [phone] Jere Khoury MD Unavailable [phone] Susanna Garibay Unavailable Unavailable Cely Kothari Unavailable [phone] Encounter Details Date Type Department Care Team (Late st Contact Info) Description 06/18/2024 Abstract [facility] [address] [place], [place] [phone] Katelynn Guzman MD [address] [place], [place] [phone] Social History Tobacco Use Types Packs/Day Years [...] Description 07/18/2025 10:45 AM EDT Office Visit [address] [address] Katelynn Guzman MD [address] [place] [address] 07/25/2025 11:30 AM EDT Medication Management [address] [address] Heena Howard, JosephD [address] [place] [address] 07/26/2025 1:00 PM EDT Clinical Support [address] [address] documented as of this encounter Goals Goal [...] documented as of this encounter Care Teams Fire Equipment Inspector Relationship Specialty Start Date End Date Katelynn Guzman MD [address] [place] [address] PCP - General Family Medicine 10/26/13 Heena Howard, JosephD [address] [place] [address] Pharmacist Internal Medicine 09/26/22 Jere Khoury MD [address] [place] [address] Hematology and Oncology 09/20/24 Susanna Garibay [address] [place] [address] Ophthalmology 10/29/24 Cely Kothari [address] [place] [address] [place] [address] Pulmonary Disease 11/16/24 Ghislaine Stone Psychiatry 10/26/24 documented as of this encounter
--- OUTSIDE RECORDS SUMMARY | 2025-06-30 11:02 | XMS_ITS | Encounter Summary ---
Author Organization [employer] Address [address] [place] [address] Care Team Providers Care Guard Chief Name Role Phone Katelynn Guzman MD Primary Care Provider +- [phone] Heena Howard PharmD Unavailable [phone] Jere Khoury MD Unavailable [phone] Susanna Garibay Unavailable Unavailable Cely Kothari Unavailable [phone] Reason for Visit * Reason Comments Med Refill Encounter Details Date Type Department Care Team (Late st Contact Info) Description 06/23/2024 Refill [facility] MED & PEDS [address] [place], [place] [phone] Katelynn Guzman MD [address] [place] [address] Acquired hypothyroidism Social History Tobacco Use Types [...] Description 07/18/2025 10:45 AM EDT Office Visit [facility] [address] [place] [address] Katelynn Guzman MD [address] [place] [address] 07/25/2025 11:30 AM EDT Medication Management [address] [address] Heena Howard, PharmD [address] [place] [address] 07/26/2025 1:00 PM EDT Clinical Support [address] [address] documented as of this encounter Goals Goal [...] documented as of this encounter Care Teams Guard Chief Relationship Specialty Start Date End Date Katelynn Guzman MD [address] [place] [address] PCP - General Family Medicine 10/26/13 Heena Howard, PharmD [address] [place] [address] Pharmacist Internal Medicine 09/26/22 Jere Khoury MD [address] [place] [address] Hematology and Oncology 09/20/24 Susanna Garibay [address] [place] [address] Ophthalmology 10/29/24 Cely Kothari [address] [place] [address] [place] [address] Pulmonary Disease 11/16/24 Ghislaine Stone Psychiatry 10/26/24 documented as of this encounter
--- OUTSIDE RECORDS SUMMARY | 2025-06-30 11:02 | XMS_ITS | Clinical Summary ---
Author Organization [employer] Address [address] [facility] [address] [place] [address] Care Team Providers Care Informatics Nurse Name Role Phone Katelynn Guzman MD Primary Care Provider [phone] Heena Howard PharmD Unavailable [phone] Jere Khoury MD Unavailable [phone] Susanna Garibay Unavailable Unavailable Cely Kothari Unavailable [phone] Allergies Active Allergy Reactions Criticality Noted [...] complication, with long-term current use of insulin ([facility]) Test blood sugar 4 times daily. 200 each 11 023 Active clotrimazole (Lotrimin) 1 % creamIndications :Candidiasis Apply topically 2 times daily. Use on buttock area bid for 1 days, moroccan 28 g 024 Active tacrolimus (Protopic) 0.1 % ointment Apply to itchy areas on face, trunk and extermities twice a day as needed for flares Active traMADol (Ultram) 50 MG tablet TOME FREEMAN TABLETA POR V A ORAL CADA OCHO HORAS CUANDO SEA NECESARIO FOR BREAKTHROUGH PAIN Active Continuous Glucose Institutional Research Coordinator (FreeStyle Bob 3 Arrington) deviceIndication s:Type 2 diabetes mellitus with diabetic [...] complication, with long-term current use of insulin ([facility]) Take 1 tablet [...] polyneuropathy, with long-term current use of insulin ([facility]) Inject 15 mg under the skin every 7 (seven) days. 2 mL 3 025 Active glucagon (Baqsimi Two Pack) 3 MG/DOSE nasal powderIndication s:Type 2 diabetes mellitus without complication, with long-term current use of insulin ([facility]) For low blood [...] neuropathy, with long-term current use of insulin ([facility]) INJECT SUBCUTANEOUSLY 22 [...] neuropathy, with long-term current use of insulin ([facility]/HCC) INJECT 94 UNITS SUBCUTANEOUSLY ONCE DAILY [...] neuropathy, with long-term current use of insulin ([facility]) INJECT 92 UNITS [...] be different from the original. Enrolled in [facility] DM clinic with Heena Howard, PharmD, BETI Problem Noted Date Diagnosed Date Pain, dental 04/14/2025 Symptomatic periapical periodontitis 04/14/2025 Dental abrasion, generalized 04/14/2025 Other constipation 02/25/2025 Encounter for screening for malignant neoplasm o f rectum 12/12/2024 Mild intermittent asthma without complication Overview (04/14/2025): -seen by pulmonology at [facility] 11/16/24 -PFT revealed moderate restrictive ventilatory defect [...] 11/11/24 for itching rash. Unknown etiology. Called [facility] and got pt an appt for 11/15/24. Pt agrees with plan. Assessment & Plan (11/11/2024 3:19 PM EST): Rash of unknown etiology on forearms, neck and face. Extensive erythematous palques on arms, anterior neck and face with areas of auto excoriation. -called [facility] and pt has follow-up appt on 11/15/24. [...] symptoms since onset. -I tried calling her chief counsel today at but was not able to [...] to continue care w her specialist. Per [employer] has apt coming up this month. -Alarm [...] Dr. Susanna Limon 10/2024 -dental home is [facility] -health care proxy given and filed 07/28/24 Assessment & Plan (07/28/2024 3:46 PM EDT): -next physical exam due after 12/21/2024 -eye care facilitated by Stacy Tyson, last seen by Dr. Susanna Limon 06/12/23 -dental home is [facility] -health care proxy given and filed 07/28/24 Assessment & Plan (04/09/2024 11:07 AM EDT): -next physical exam due after 12/21/2024 -eye care facilitated by Stacy Tyson, last seen by Dr. Susanna Limon 06/12/23 -dental home is [facility] -health care proxy Assessment & Plan (12/22/2023 12:26 PM EDT): -next physical exam due after 12/21/2024 -eye care facilitated by Stacy Tyson, last seen by Dr. Susanna Limon 06/12/23 -dental home is [facility] Assessment & Plan (04/16/2023 2:10 PM EDT): -next physical exam due after -eye care facilitated by eye mary ledesma and [facility] last seen 12/30/2021. Referral placed 11/11/2022. [...] cefepime. Her case was discussed with the case aide, who recommended IV steroids and antibiotics. Most [...] top of her psoriasis . Seen by [facility] 04/08/24, Prescribe clobetasol 0.05% lotion scalp bid and alclometasone 0.05% cream to face bid. Betamethasone 0.05% oint to trunk and extremities BID. Tacrolimus 0.1% ointment bid prn Decrease steroids a symptoms improve Assessment & Plan (12/22/2023 12:18 PM EDT): -has hx of eczema due dermatitis -will refer to Deputy Treasurer Assessment & Plan (07/23/2023 4:16 PM EDT): [...] of this. Carpal tunnel education information in Tajik was provided to the patient. Patient was given a night splint. She verbalized understanding of the plan. Assessment & Plan (07/23/2023 4:11 PM EDT): Patient has early carpal tunnel. We discussed the pathophysiology of this. Carpal tunnel education information in Tajik was provided to the patient. Patient was given a night splint. She verbalized understanding of the plan. Assessment & Plan (04/16/2023 1:58 PM EDT): Patient has early carpal tunnel. We discussed the pathophysiology of this. Carpal tunnel education information in Tajik was provided to the patient. Patient was [...] -Diabetic eye exam: eye and lasix and [facility] last seen 04/28/24 -Diabetic foot exam: Done 07/28/24 -Continue lifestyle modifications -Continue current medications -Toujeo solostar and insulin lispro titrated by CDTM [facility] -Mounjaro 12.5mg once weekly Assessment & Plan [...] -Diabetic eye exam: eye and lasix and [facility] last seen 06/12/23 -Diabetic foot exam: [...] be compliant, and improve her diet. Offered transfer driver referral, but pt is refusing, stating she has seen multiple gate manager in the past. -Agreed to flagstone layer referral today, because of her difficult to [...] -Diabetic eye exam: eye and lasix and [facility] last seen 12/30/2021. Referral placed 11/11/2022. [...] Data 06/24/2025 1:30 PM EDT Clinical Support [facility] [address] [place] [phone] Ira Lopez RN Vitamin B deficiency 06/24/2025 Travel 06/20/2025 Travel 06/01/2025 Refill [facility] [address] [place] [address] Katelynn Guzman MD Chronic vaginitis 05/24/2025 2:30 PM EDT Clinical Support [facility] [address] [place] [phone] Analy Underwood RN Vitamin B deficiency 05/24/2025 Travel 05/23/2025 Refill [facility] [address] [place] [address] Katelynn Guzman MD Acute hemorrhoid 05/23/2025 Travel 05/19/2025 Orders Only [facility] [address] [place] [address] Katelynn Guzman MD Fibromyalgia 05/19/2025 Telephone [facility] [address] [place] [address] Kateylnn Guzman MD Med Refill 05/17/2025 Telephone [facility] [address] [place] [address] Katelynn Guzman MD CHART PREP 05/12/2025 Telephone [facility] [address] [place] [address] Katelynn Guzman MD 05/07/2025 Orders Only [facility] [address] [place] [phone] Katelynn Guzman MD Type 2 diabetes mellitus with diabetic polyneuropathy, with long-term current use of insulin ([facility]) (Primary Dx) 05/06/[address] [address] Heena Howard, PharmD 05/06/[address] [address] Heena Howard, PharmD 05/04/[address] [address] Heena Howard, PharmChristine nurse status check 05/04/[address] [address] Katelynn Guzman MD Nurse Triage 05/04/2025 Refill [facility] [address] [place] [address] Katelynn Guzman MD Chronic vaginitis 05/04/2025 Travel 05/03/[address] [address] Katelynn Guzman MD 04/25/2025 1:00 PM EDT Telemedicine [address] [address] Heena Howard, PharmD Type 2 diabetes mellitus with diabetic polyneuropathy, with long-term current use of insulin ([facility]/HCC) (Primary Dx) 04/25/2025 Travel 04/19/[address] [address] Heena Howard, PharmD 04/18/2025 11:30 AM EDT Clinical Support [address] [address] Ya Dill RN Vitamin B deficiency 04/18/2025 Travel 04/14/2025 2:00 PM EDT Office Visit [facility] [address] [place] [phone] Raúl Mckeon DDS Pain, dental (Primary Dx); Symptomatic periapical periodontitis; Dental abrasion, generalized 04/13/2025 Travel 04/06/2025 Refill [facility] [address] [place] [address] Katelynn Guzman MD Gastroesophageal reflux disease without [...] Description 07/18/2025 10:45 AM EDT Office Visit [address] [address] Katelynn Guzman MD [address] [place] [address] 07/25/2025 11:30 AM EDT Medication Management [address] [address] Heena Howard, PharmD [address] [place] [phone] 07/26/2025 1:00 PM EDT Clinical Support [address] [address] Health Maintenance Due Date Last Done Comments [...] 2025 , 06/20/2023, 07/18/2022, Additional history exists Alcohol/Substance Use Screening 07/28/2025 07/28/2024 Diabetes: Foot Exam 07/28/2025 07/28/2024, 07/28/2024, 07/28/2024, Additional history exists Diabetes: Hemoglobin A1C 08/23/2025 025, 01/24/2025, 09/28/2024, Additional history exists Diabetes: Urine Protein Screening 11/12/2025 11/12/2024, 07/02/2024, 06/04/2023, Additional history exists Dental X-Ray: Full Mouth 02/06/2026 02/05/2023 Tobacco Screening 04/14/2026 04/14/2025 Mammogram 05/19/2026 05/19/2025, 03/2024, 05/13/2024, Additional history exists Lipid Panel 06/29/2026 06/29/2025, 06/14, 06/04/2023, Additional history exists Colonoscopy 11/10/2028 11/10/2023, 02/11/2016 [...] Procedure Name Priority Date/Time Associated Diagnosis Comments LIPID PANEL, STANDARD Routine 06/29/2025 10:28 AM EDT COMPREHENSIVE METABOLIC PANEL Routine 06/29/2025 10:28 AM EDT CBC WITH AUTO DIFFERENTIAL Routine 06/29/2025 10:28 AM EDT POCT GLYCATED HEMOGLOBIN, TOTAL Routine 05/23/2025 3:19 PM EDT Type 2 diabetes mellitus without complication, with long-term current use of insulin ([facility]) BI MAMMOGRAM SCREENING TOMOSYNTHESIS BILATERAL Routine 05/19/2025 12:50 PM EDT POCT GLUCOSE Routine 05/04/2025 3:55 PM EDT Type 2 diabetes mellitus without complication, with long-term current use of insulin (CMS/HCC) POCT GLUCOSE Routine 05/04/2025 3:30 PM EDT Type 2 diabetes mellitus without complication, with long-term current use of insulin (CMS/[facility]) POCT GLUCOSE Routine 05/04/2025 3:15 PM EDT Type 2 diabetes mellitus without complication, with long-term current use of insulin (CMS/[facility]) POCT GLUCOSE Routine 05/04/2025 3:02 PM EDT Type 2 diabetes mellitus without complication, with long-term current use of insulin ([facility]) POCT GLUCOSE Routine 05/04/2025 2:54 PM EDT Type 2 diabetes mellitus without complication, with long-term current use of insulin ([facility]) POCT GLUCOSE Routine 05/04/2025 2:44 PM EDT Type 2 diabetes mellitus without complication, with long-term current use of insulin ([facility]) POCT GLUCOSE Routine 05/04/2025 2:30 PM EDT Type 2 diabetes mellitus without complication, with long-term current use of insulin ([facility]) 23 EXTRACTION, ERUPTED [...] URINE W/CREATININE Routine 11/12/2024 12:33 PM EST COLONOSCOPY Routine 11/10/2023 DIABETES EYE EXAM Routine [...] Blood Count 7.2 4.8 - 10.8 X10*3/uL [facility] Red Blood Count 5.05 4.20 - 5.50 X10*6/uL [facility] Hemoglobin 13.3 12.0 - 16.0 g/dl [facility] Hematocrit 40.7 37.0 - 47.0 % [facility] Mean Corpuscular Volume 80.6 80.0 - 98.0 fL [facility] Mean Corpuscular Hemoglobin 26.3(L) 27.0 - 33.0 pg [facility] Mean Corpuscular HGB Conc 32.7 31.0 - 35.0 g/dl [facility] Red Cell Distribution Width 15.1 11.0 - 16.0 % [facility] Platelet Count 157(L) 160 - 400 X10*3/uL [facility] Mean Platelet Volume 12.7(H) 9.4 - 12.3 fL [facility] Neutrophils Percent Auto 63.1 45 - 73 % [facility] Imm Gran Pct Auto 0.3 0.0 - 0.4 % [facility] Lymphocytes Percent Auto 19.1(L) 20 - 40 % [facility] Monocytes Percent Auto 13.0(H) 2 - 11 % [facility] Eosinophils Percent Auto 3.5 0 - 4 % [facility] Basophils Percent Auto 1.0 0 - 2 % [facility] NRBC Pct Auto 0.0 0.0 - 0.2 /100WBC [facility] Neutrophils Absolute Auto 4.6 2.0 - 8.3 x10*3/uL [facility] Imm Gran Abs Auto 0.02 0.00 - 0.03 X10*3/uL [facility] Lymphocytes Absolute Auto 1.4 1.2 - 4.9 X10*3/uL [facility] Monocytes Absolute Auto 0.9 0.1 - 1.2 X10*3/uL [facility] Eosinophils Absolute Auto 0.3 0.0 - 0.4 X10*3/uL [facility] Basophils Absolute Auto 0.1 0.0 - 0.2 X10*3/uL [facility] NRBC Abs Auto 0.000 0.0 - 0.012 X10*3/uL [facility] 06/29/2025 10:2 8 AM EDT 06/29/2025 11:14 AM EDT us Generic External Data Provider LAB BLOOD ORDERAB LES Final Result Performing Organization Address [facility]/ZIP Co de Phone Number [facility] [address] [place] [phone] * (ABNORMAL) Lipid Panel, Standard (06/29/2025 10:28 AM EDT) Triglycerides 149 <150 mg/dL [facility] Comment:Desirable Triglyceri de: less than 150 mg/dLBorderline High Triglyceride 150-199 mg/dLHigh Triglyceride: 200-499 mg/dLVery High Triglyceride: greater than or equal to 5OO mg/dL Cholesterol 124 <200 mg/dL [facility] Comment:Desirable Cholestero l: less than 200 mg/dLBorderline High Cholesterol: 200-239 mg/dLHigh Cholesterol: greater than 239 mg/dL LDL Cholesterol Calculated 60 <100 mg/dL [facility] Comment:Desirable LDL: less than 100 mg/dLNear Optimal/Above Optimal LDL: 110- 129 mg/dLBorderline High LDL: 130-159 mg/dLHigh LDL: 160-189 mg/dLVery High LDL: greater than or equal to 190 mg/dL HDL Cholesterol 35(L) >40 mg/dL [facility] Comment:Desirable HDL: great er than 40 mg/dL Note: This HDL assay may give artificially low results in patients with liver disease. 06/29/2025 10:2 8 AM EDT 06/29/2025 1:16 PM EDT us Katelynn Guzman MD LAB BLOOD ORDERABLES Final Result Performing Organization Address City/[facility]/ZIP Co de Phone Number [facility] [address] [place] [address] [phone] * (ABNORMAL) Comprehensive Metabolic Panel (06/29/2025 10:28 AM EDT) [facility] Sodium 136 135 - 145 mmol/L [facility] Potassium 4.2 3.3 - 5.1 mmol/L [facility] Chloride 97 96 - 108 mmol/L [facility] Carbon Dioxide 31(H) 22 - 29 mmol/L [facility] Anion Gap 12 12 - 20 [facility] Urea Nitrogen (BUN) 19(H) 9 - 16 mg/dL [facility] Creatinine, Serum 1.14 0.5 - 1.4 mg/dL [facility] Estimated Glomerular Filt Rate 48 [facility] Comment:Chronic Kidney Disea se: Estimated GFR < 60 mL/min/1.18i9Kobutj Kidney Disease: Estimated GFR < 15 mL/min/1.73m2 Glucose 288(H) 60 - 115 mg/dL [facility] Calcium 9.5 8.4 - 10.2 mg/dL [facility] Bilirubin, Total 0.5 0.0 - 1.0 mg/dL [facility] Aspartate Amino Transferase 37(H) 5 - 31 U/L [facility] Alanine Aminotransferase 37(H) 0 - 31 U/L [facility] Total Protein 7.0 6.5 - 8.0 g/dL [facility] Albumin Level 4.2 3.5 - 5.0 g/dL [facility] Alkaline Phosphatase 102 39 - 117 U/L [facility] 06/29/2025 10:2 8 AM EDT 06/29/2025 1:16 PM EDT us Generic External Data Provider LAB BLOOD ORDERAB LES Final Result [facility] [address] [place] [address] [phone] * (ABNORMAL) POCT A1c (05/23/2025 3:19 [...] PM EDT Narrative 05/30/2025 8:03 AM EDT [facility] [address] [place], [place] [address] Mammography Report Signed Patient: Bhavna Enriquez MR# : [id number] : 1965 Acct:[id number] Age/Sex: 59 / F ADM Date: 05/19/25 Loc: HO.MAMMO Attending Dr: Katelynn Guzamn MD Ordering Physician: Katelynn Guzman MD Results: 2B enign Findings Date of Service: 05/19/25 Follow Up: 1 Year From [facility] Mammogram Procedure(s): MM tomosynthesis screening BI Accession Number(s): [id number] cc: Katelynn Guzman MD EXAMINATION: MM SCREENING [...] Gunjan Manrique MD 05/30/2025 08:00 AM EDT RP Dictated By: Gunjan Manrique MD Signed By: <Electronically signed by Gunjan Manrique MD in OV> 05/30/25 0800 DD/ 1250 TD/TT: 05/19/25 1314 Solar Manufacturer'S Representative: Procedure Note Donotuseinterpreter, Image - 05/30/2025 [facility] [address] [place] [address] Mammography Report Signed Patient: Bhavna Enriquez DMR# : [id number] : 1965Acct:[id number] Age/Sex: 59 / FADM Date: 05/19/25 Loc: HO.MAMMO Attending Dr: Katelynn Guzman MD Ordering Physician: Katelynn Guzman MDResults: 2B enign Findings Date of Service: 05/19/25Follow Up: 1 Year From Orig inal Mammogram Procedure(s): MM tomosynthesis screening BI Accession Number(s): [id number] cc: Katelynn Guzman MD EXAMINATION: MM SCREENING [...] Gunjan Manrique MD 05/30/2025 08:00 AM EDT RP Dictated By: Gunjan Manrique MD Signed By: <Electronically signed by Gunjan Manrique MD in OV> 05/30/25 0800 DD/ 1250 TD/TT: 05/19/25 1314 Solar Manufacturer'S Representative: Katelynn Guzman MD IMG BI PROCEDURES Final Re sult * POCT Glucose (05/04/2025 3:55 PM EDT) Only the most recent of7 resultswithin the time period is included. Glucose Blood, POC 85 60 - 200 mg/dL QC Media Lot # [id number] Lot# Expiration Date [id number] Blood Capillary blood specimen / Unknown 05/04/2025 3:55 PM EDT Katelynn Guzman MD POINT OF CARE TEST ENTER/E DIT ORDERABLES Final Result * (ABNORMAL) Albumin, Random Urine W/Creatinine (11/12/2024 12:33 PM EST) Creatinine, Urine 151.44 mg/dL [facility] Microalbumin Urine 134.0 mg/L [facility] Microalbum Creatinine Ratio Ur 88.4(H) <30 ug/mg cr [facility] Comment:Albumin/Creatinine R atio Reference Ranges: Normal: < 30 ug/mg creatinine Microalbuminuria: 30 - 300 ug/mg creatinineClinical Albuminuria: > 300 ug/mg creatinine 11/12/2024 12:3 3 PM EST 11/12/2024 1:45 PM EST Katelynn Guzman MD LAB URINE ORDERABLES Final Result [facility] [address] [place] [address] [phone] * Colonoscopy (11/10/2023) Colonoscopy Normal Normal Comment:fh colon ca done meron h Dr. Robertson Historical Provider HEALTH MAINTENANCE Final Result * Hm Diabetes Eye Exam (06/12/2023) Eye Exam Normal Normal Comment:[facility] Susanna Limon Historical Provider HEALTH MAINTENANCE Final Result * Hepatitis C Antibody (12/07/2020 12:18 PM EST) Hepatitis C Antibody Nonreactive Blood 12/07/2020 12:1 8 PM EST Historical Provider POINT OF CARE TEST ENTER/ EDIT ORDERABLES Final Result * HIV 1/2 ANTIGEN/ANTIBODY,FOURTH GENERATION W/RFL (12/07/2020 11:38 AM EST) Pathologist [facility] HIV-1/2 ANTIGEN AND ANTIBODIES, 4TH GENERATION [...] purpose. For additional information please refer to http://[email or web address].[email or web address]/faq/FQC735 (This link is being provided for informational/ educational purposes only.) The performance of this assay has not been clinically validated in patients less than 2 years old. 12/07/2020 11:3 8 AM EST us Katelynn Guzman MD LAB BLOOD ORDERABLES Final Result [facility] [address] [place] [address], * Pap Smear (10/13/2003 12:00 AM EST) Swab Historical Provider LAB CYTOLOGY ORDERABLES F inal Result [facility] [address] [place] [phone] from Last 3 Months or Most Recently Relevant to Health Maintenance [place] AD[place] Advance Directives Documents on File Type Date Recorded Patient Mgmt Analyst Expl anation Advance Directives and Living Will 07/29/2024 2:10 PM Health Care Proxy Care Teams Informatics Nurse Relationship Specialty Start Date End Date Bradley, MD Katelynn [address] [place] [address] PCP - General Family Medicine 10/26/13 Heena Howard, JosephD [address] [place] [address] Pharmacist Internal Medicine 09/26/22 Jere Khoury MD [address] [place] [phone] Hematology and Oncology 09/20/24 Susanna Garibay [address] [place] [phone] Ophthalmology 10/29/24 Cely Kothari [address] [place] [address] [place] [address] Pulmonary Disease 11/16/24 Ghislaine Stone Psychiatry 10/26/24
--- OUTSIDE RECORDS SUMMARY | 2025-06-30 11:02 | XMS_ITS | Encounter Summary ---
Author Organization [employer] Address [address] [employer] 7t [place] [address] Care Team Providers Care Cad Designer Drafter Name Role Phone Katelynn Guzman MD Primary Care Provider + [phone] Heena Howard PharmD Unavailable [phone]- [phone] Jere Khoury MD Unavailable [phone] Susanna Garibay Unavailable Unavailable Cely Kothari Unavailable [phone] Reason for Visit * Reason Comments Med Refill Encounter Details Date Type Department Care Team (Late st Contact Info) Description 05/26/2024 Refill [facility] MEDICINE [address] [place], [place] [phone] Heena Howard, PharmD [address] [place] [address] Type 2 diabetes mellitus without complication, with long-term current use of insulin ([facility]) Social History Tobacco Use Types [...] the past 12 months, has t he [employer], gas, oil or water company threatened to [...] Description 07/18/2025 10:45 AM EDT Office Visit [facility] MEDICINE [address] [place] [address] Katelynn Guzman MD [address] [place] [address] 07/25/2025 11:30 AM EDT Medication Management [address] [address] Heena Howard, JosephD [address] [place] [address] 07/26/2025 1:00 PM EDT Clinical Support [address] [address] documented as of this encounter Goals Goal Patient Goal Type Associated Problems Recent Progress Patient-Stated? Author Hemoglobin A1c < 7 Result Component 7.9(05/23/2025 3:19 PM EDT) No Heena Howard, PharmD documented as of this encounter Visit Diagnoses Diagnosis Type 2 diabetes mellitus without complication, with long-term current use of insulin ([facility]) documented in this encounter Additional Health Concerns Assessment Noted Time PHQ-9 Depression Total Score: 0 04/07/20 24 2:36 PM EDT documented as of this encounter Care Teams Cad Designer Drafter Relationship Specialty Start Date End Date Katelynn Guzman MD [address] [place] [address] PCP - General Family Medicine 10/26/13 Heena Howard, JosephD [address] [place] [address] Pharmacist Internal Medicine 09/26/22 Jere Khoury MD [address] [place] [address] Hematology and Oncology 09/20/24 Susanna Garibay [address] [place] [address] Ophthalmology 10/29/24 Cely Kothari [address] [place] [address] [place] [address] Pulmonary Disease 11/16/24 Ghislaine Ritter Psychiatry 10/26/24 documented as of this encounter
--- OUTSIDE RECORDS SUMMARY | 2025-06-30 11:02 | XMS_ITS | Encounter Summary ---
Author Organization [employer] Address [address] [facility] 7t [place] [address] Care Team Providers Care Fabrication Manager Name Role Phone Katelynn Guzman MD Primary Care Provider +- [phone] Heena Howard PharmD Unavailable [phone] Jere Khoury MD Unavailable [phone] Susanna Garibay Unavailable Unavailable Cely Kothari Unavailable [phone] Reason for Visit * Reason Onset Date Comments FYI 06/29/2024 Nurse Triage 06/29/2024 Encounter Details Date Type Department Care Team (Late st Contact Info) Description 06/29/2024 Telephone [facility] MEDICINE [address] [place], [place] [phone] Katelynn Guzman MD [address] [place], [place] [phone] FYI; Nurse Triage Social History Tobacco Use [...] 06/29/2024 12:42 PM EDT Called Yani from [facility] at [phone]. [facility] nurse states that this is the first time seeing pt. Pt. Gets daily weight checks and last Friday06/22/24 pt weight was 207- and today 06/29/24 weightis 215. Bilateral Feet and legs are swollen mildly positive pedal pulses. Pt is breathing WNL, and lungs are clear. Today BP 120/60 pulse 81. I will call pt. For assessment. Called pt. Via [employer] [phone] Dg. Pt. Agrees that she has gained [...] PM EDT [facility] report in the past week the patient has gained 8 pounds and the patient haves feet and leg swelling Yani would like a call back to discuss more at [phone] documented in this encounter Plan of Treatment Upcoming Encounters Date Type Department Care Team (Late st Contact Info) Description 07/18/2025 10:45 AM EDT Office Visit [address] [address] Katelynn Guzman MD [address] [place] [address] 07/25/2025 11:30 AM EDT Medication Management [address] [address] Heena Howard, JosephD [address] [place] [address] 07/26/2025 1:00 PM EDT Clinical Support [address] [address] documented as of this encounter Goals Goal [...] documented as of this encounter Care Teams Fabrication Manager Relationship Specialty Start Date End Date Katelynn Guzman MD [address] [place] [address] PCP - General Family Medicine 10/26/13 Heena Howard, PharmD [address] [place] [address] Pharmacist Internal Medicine 09/26/22 Jere Khoury MD [address] [place] [address] Hematology and Oncology 09/20/24 Susanna Garibay [address] [place] [address] Ophthalmology 10/29/24 Cely Kothari [address] [place] [address] [place] [address] Pulmonary Disease 11/16/24 Ghislaine Stone Psychiatry 10/26/24 documented as of this encounter
--- OUTSIDE RECORDS SUMMARY | 2025-06-30 11:02 | XMS_ITS | Encounter Summary ---
Author Organization [employer] Address [address] [facility] [address] 7t [place] [address] Care Team Providers Care Industrial Court Magistrate Name Role Phone Katelynn Guzman MD Primary Care Provider +- [phone] Heena Howard PharmD Unavailable [phone] Jere Khoury MD Unavailable [phone] Susanna Garibay Unavailable Unavailable Cely Kothari Unavailable [phone] Encounter Details Date Type Department Care Team (Late st Contact Info) Description 10/09/2023 Orders Only [facility] MEDICINE 230 [place], [place] [phone] Katelynn Guzman MD 230 [place], [place] [phone] Social History Tobacco Use Types Packs/Day Years [...] Description 07/18/2025 10:45 AM EDT Office Visit [address] [address] Katelynn Guzman MD [address] [place] [address] 07/25/2025 11:30 AM EDT Medication Management [address] [address] Heena Howard PharmD [address] [place] [address] 07/26/2025 1:00 PM EDT Clinical Support [address] [address] documented as of this encounter Goals Goal [...] as of this encounter Care Teams Industrial Court Magistrate Relationship Specialty Start Date End Date Katelynn Guzman MD [address] [place] [address] PCP - General Family Medicine 10/26/13 Heena Howard, JosephD [address] [place] [address] Pharmacist Internal Medicine 09/26/22 Jere Khoury MD [address] [place] [address] Hematology and Oncology 09/20/24 Susanna Garibay [address] [place] [address] Ophthalmology 10/29/24 Cely Kothari [address] [place] [address] [place] [address] Pulmonary Disease 11/16/24 Ghislaine Stone Psychiatry 10/26/24 documented as of this encounter
--- OUTSIDE RECORDS SUMMARY | 2025-06-30 11:02 | XMS_ITS | Encounter Summary ---
Author Organization [employer] Address 75 [facility] 7t [place] [address] Care Team Providers Care Sales Team Leader Name Role Phone Katelynn Guzman MD Primary Care Provider + [phone] Heena Howard PharmD Unavailable [phone] Jere Khoury MD Unavailable [phone] Susanna Garibay Unavailable Unavailable Cely Kothari Unavailable [phone] Reason for Visit * Reason Comments Med Refill Encounter Details Date Type Department Care Team (Late st Contact Info) Description 06/22/2024 Refill [facility] MEDICINE [address] [place], [place] [phone] Heena Howard, PharmD 230 [place] [address] Type 2 diabetes mellitus without complication, with long-term current use of insulin ([facility]) Social History Tobacco Use Types Packs/Day Years [...] Description 07/18/2025 10:45 AM EDT Office Visit [facility] MEDICINE [address] [place] [address] Katelynn Guzman MD [address] [place] [address] 07/25/2025 11:30 AM EDT Medication Management [facility] MEDICINE [address] [place] [address] Heena Howard PharmD [address] [place] [address] 07/26/2025 1:00 PM EDT Clinical Support [facility] MEDICINE [address] [place] [address] documented as of this encounter Goals Goal Patient Goal Type Associated Problems Recent Progress Patient-Stated? Author Hemoglobin A1c < 7 Result Component 7.9(05/23/2025 3:19 PM EDT) No Heena Howard, PharmD documented as of this encounter Visit Diagnoses Diagnosis Type 2 diabetes mellitus without complication, with long-term current use of insulin ([facility]) documented in this encounter Additional Health Concerns Assessment Noted Time PHQ-9 Depression Total Score: 0 04/07/20 24 2:36 PM EDT documented as of this encounter Care Teams Sales Team Leader Relationship Specialty Start Date End Date Katelynn Guzman MD [address] [place] [address] PCP - General Family Medicine 10/26/13 Heena Howard, PharmD [address] [place] [address] Pharmacist Internal Medicine 09/26/22 Jere Khoury MD [address] [place] [address] Hematology and Oncology 09/20/24 Susanna Garibay [address] [place] [address] Ophthalmology 10/29/24 Cely Kothari [address] [place] [address] [place] [address] Pulmonary Disease 11/16/24 Ghislaine Stone Psychiatry 10/26/24 documented as of this encounter
--- OUTSIDE RECORDS SUMMARY | 2025-06-30 11:02 | XMS_ITS | Encounter Summary ---
Author Organization [employer] Address [address] [facility] 7t [place] [address] Care Team Providers Care Dermatology Physician Name Role Phone Katelynn Guzman MD Primary Care Provider +- [phone] Heena Howard PharmD Unavailable [phone] Jere Khoury MD Unavailable [phone] Susanna Garibay Unavailable Unavailable Cely Kothari Unavailable [phone] Encounter Details Date Type Department Care [...] Description 07/18/2025 10:45 AM EDT Office Visit [facility] MEDICINE [address] [place] [address] Katelynn Guzman MD [address] [place] [address] 07/25/2025 11:30 AM EDT Medication Management [address] [address] Heena Howard, JosephD [address] [place] [address] 07/26/2025 1:00 PM EDT Clinical Support [address] [address] documented as of this encounter Goals Goal Patient Goal Type Associated Problems Recent Progress Patient-Stated? Author Hemoglobin A1c < 7 Result Component 7.9(05/23/2025 3:19 PM EDT) No Heena Howard, Luly documented as of this encounter Procedures Procedure Name Priority Date/Time Associated Diagnosis Comments CBC WITH AUTO DIFFERENTIAL Routine 06/29/2025 10:28 AM EDT LIPID PANEL, STANDARD Routine 06/29/2025 10:28 AM EDT COMPREHENSIVE METABOLIC PANEL Routine 06/29/2025 10:28 AM EDT documented in this encounter Results * (ABNORMAL) Lipid Panel, Standard (06/29/2025 10:28 AM EDT) Triglycerides 149 <150 mg/dL [facility] Comment:Desirable Triglyceri de: less than 150 mg/dLBorderline High Triglyceride 150-199 mg/dLHigh Triglyceride: 200-499 mg/dLVery High Triglyceride: greater than or equal to 5OO mg/dL Cholesterol 124 <200 mg/dL [facility] Comment:Desirable Cholestero l: less than 200 mg/dLBorderline High Cholesterol: 200-239 mg/dLHigh Cholesterol: greater than 239 mg/dL LDL Cholesterol Calculated 60 <100 mg/dL [facility] Comment:Desirable LDL: less than 100 mg/dLNear Optimal/Above Optimal LDL: 110- 129 mg/dLBorderline High LDL: 130-159 mg/dLHigh LDL: 160-189 mg/dLVery High LDL: greater than or equal to 190 mg/dL HDL Cholesterol 35(L) >40 mg/dL [facility] Comment:Desirable HDL: great er than 40 mg/dL Note: This HDL assay may give artificially low results in patients with liver disease. 06/29/2025 10:2 8 AM EDT 06/29/2025 1:16 PM EDT us Katelynn Guzman MD LAB BLOOD ORDERABLES Final Result [facility] [address] [place] [phone] * (ABNORMAL) Comprehensive Metabolic Panel (06/29/2025 10:28 AM EDT) Sodium 136 135 - 145 mmol/L [facility] Potassium 4.2 3.3 - 5.1 mmol/L [facility] Chloride 97 96 - 108 mmol/L [facility] Carbon Dioxide 31(H) 22 - 29 mmol/L [facility] Anion Gap 12 12 - 20 [facility] Urea Nitrogen (BUN) 19(H) 9 - 16 mg/dL [facility] Creatinine, Serum 1.14 0.5 - 1.4 mg/dL [facility] Estimated Glomerular Filt Rate 48 [facility] Comment:Chronic Kidney Disea se: Estimated GFR < 60 mL/min/1.82p5Xbjomy Kidney Disease: Estimated GFR < 15 mL/min/1.73m2 Glucose 288(H) 60 - 115 mg/dL [facility] Calcium 9.5 8.4 - 10.2 mg/dL [facility] Bilirubin, Total 0.5 0.0 - 1.0 mg/dL [facility] Aspartate Amino Transferase 37(H) 5 - 31 U/L [facility] Alanine Aminotransferase 37(H) 0 - 31 U/L [facility] Total Protein 7.0 6.5 - 8.0 g/dL [facility] Albumin Level 4.2 3.5 - 5.0 g/dL [facility] Alkaline Phosphatase 102 39 - 117 U/L [facility] 06/29/2025 10:2 8 AM EDT 06/29/2025 1:16 PM EDT us Generic External Data Provider LAB BLOOD ORDERAB LES Final Result [facility] [address] [place], [place] [phone] * (ABNORMAL) CBC auto differential (06/29/2025 10:28 AM EDT) White Blood Count 7.2 4.8 - 10.8 X10*3/uL [facility] Red Blood Count 5.05 4.20 - 5.50 X10*6/uL [facility] Hemoglobin 13.3 12.0 - 16.0 g/dl [facility] Hematocrit 40.7 37.0 - 47.0 % [facility] Mean Corpuscular Volume 80.6 80.0 - 98.0 fL [facility] Mean Corpuscular Hemoglobin 26.3(L) 27.0 - 33.0 pg [facility] Mean Corpuscular HGB Conc 32.7 31.0 - 35.0 g/dl [facility] Red Cell Distribution Width 15.1 11.0 - 16.0 % [facility] Platelet Count 157(L) 160 - 400 X10*3/uL [facility] Mean Platelet Volume 12.7(H) 9.4 - 12.3 fL [facility] Neutrophils Percent Auto 63.1 45 - 73 % [facility] Imm Gran Pct Auto 0.3 0.0 - 0.4 % [facility] Lymphocytes Percent Auto 19.1(L) 20 - 40 % [facility] Monocytes Percent Auto 13.0(H) 2 - 11 % [facility] Eosinophils Percent Auto 3.5 0 - 4 % [facility] Basophils Percent Auto 1.0 0 - 2 % [facility] NRBC Pct Auto 0.0 0.0 - 0.2 /100WBC [facility] Neutrophils Absolute Auto 4.6 2.0 - 8.3 x10*3/uL [facility] Imm Gran Abs Auto 0.02 0.00 - 0.03 X10*3/uL [facility] Lymphocytes Absolute Auto 1.4 1.2 - 4.9 X10*3/uL [facility] Monocytes Absolute Auto 0.9 0.1 - 1.2 X10*3/uL [facility] Eosinophils Absolute Auto 0.3 0.0 - 0.4 X10*3/uL [facility] Basophils Absolute Auto 0.1 0.0 - 0.2 X10*3/uL [facility] NRBC Abs Auto 0.000 0.0 - 0.012 X10*3/uL [facility] 06/29/2025 10:2 8 AM EDT 06/29/2025 11:14 AM EDT us Generic External Data Provider LAB BLOOD ORDERAB LES Final Result [facility] [address] [place] [address] [phone] documented in this encounter Visit Diagnoses Not on filedocumented in this encounter Additional Health Concerns Assessment Noted Time PHQ-9 Depression Total Score: 9 07/28/20 24 4:10 PM EDT documented as of this encounter Care Teams Dermatology Physician Relationship Specialty Start Date End Date Katelynn Guzman MD [address] [place] [address] PCP - General Family Medicine 10/26/13 Heena Howard, JosephD [address] [place] [address] Pharmacist Internal Medicine 09/26/22 Jere Khoury MD [address] [place] [address] Hematology and Oncology 09/20/24 Susanna Garibay [address] [place] [address] Ophthalmology 10/29/24 Cely Kothari [address] [place] [address] Dr Aguilera [address] [place] [address] Pulmonary Disease 11/16/24 Ghislaine Stone Psychiatry 10/26/24 documented as of this encounter
--- OUTSIDE RECORDS SUMMARY | 2025-06-30 11:02 | XMS_ITS | Encounter Summary ---
Author Organization [employer] Address [address] [facility] [address] 7t [place] [address] Care Team Providers Care Data Warehousing Architect Name Role Phone Katelynn Guzman MD Primary Care Provider +- [phone] Heena Howard PharmD Unavailable [phone] Jere Khoury MD Unavailable [phone] Susanna Garibay Unavailable Unavailable Cely Kothari Unavailable [phone] Reason for Visit * Reason Comments Med Refill Encounter Details Date Type Department Care Team (Late st Contact Info) Description 02/10/2025 Refill [facility]EDS [address] [place], [place] [phone] Katelynn Guzman MD [address] [place] [address] Pain Social History Tobacco Use Types Packs/Day [...] Description 07/18/2025 10:45 AM EDT Office Visit [address] [address] Katelynn Guzman MD [address] [place] [address] 07/25/2025 11:30 AM EDT Medication Management [address] [address] Heena Howard, PharmD [address] [place] [address] 07/26/2025 1:00 PM EDT Clinical Support [address] [address] documented as of this encounter Goals Goal [...] of this encounter Care Teams Data Warehousing Architect Relationship Specialty Start Date End Date Katelynn Guzamn MD [address] [place] [address] PCP - General Family Medicine 10/26/13 Heena Howard, JosephD [address] [place] [address] Pharmacist Internal Medicine 09/26/22 Jere Khoury MD [address] [place] [address] Hematology and Oncology 09/20/24 Susanna Garibay [address] [place] [address] Ophthalmology 10/29/24 Cely Kothari [address] [place] [address] [place] [address] Pulmonary Disease 11/16/24 Ghislaine Stone Psychiatry 10/26/24 documented as of this encounter
--- OUTSIDE RECORDS SUMMARY | 2025-06-30 11:02 | XMS_ITS | Encounter Summary ---
Author Organization [employer] Address 75 [facility] 7t [place] [address] Care Team Providers Care In Home Caregiver Name Role Phone Katelynn Guzman MD Primary Care Provider + [phone] Heena Howard PharmD Unavailable [phone] Jere Khoury MD Unavailable [phone] Susanna Garibay Unavailable Unavailable Cely Kothari Unavailable [phone] Reason for Visit * Reason Comments Med Refill Encounter Details Date Type Department Care Team (Late st Contact Info) Description 08/21/2023 Refill [facility] MEDICINE [address] [place], [place] [phone] Heena Howard, PharmD [address] [place] [address] Social History Tobacco Use Types Packs/Day Years [...] Description 07/18/2025 10:45 AM EDT Office Visit [address] [address] Katelynn Guzman MD [address] [place] [address] 07/25/2025 11:30 AM EDT Medication Management [address] [address] Heena Howard PharmD [address] [place] [address] 07/26/2025 1:00 PM EDT Clinical Support [address] [address] documented as of this encounter Goals Goal [...] documented as of this encounter Care Teams In Home Caregiver Relationship Specialty Start Date End Date Katelynn Guzman MD [address] [place] [address] PCP - General Family Medicine 10/26/13 Heena Howard, Luly [address] [place] [address] Pharmacist Internal Medicine 09/26/22 Jere Khoury MD [address] [place] [address] Hematology and Oncology 09/20/24 Susanna Garibay [address] [place] [address] Ophthalmology 10/29/24 Cely Kothari [address] [place] [address] Pulmonary Disease 11/16/24 Ghislaine Stone Psychiatry 10/26/24 documented as of this encounter
--- OUTSIDE RECORDS SUMMARY | 2025-06-30 11:03 | XMS_ITS | Encounter Summary ---
Author Organization [employer] Address [address] [facility] [address] 7t [place] [address] Care Team Providers Care Agency Sales Representative Name Role Phone Katelynn Guzman MD Primary Care Provider +- [phone] Heena Howard PharmD Unavailable [phone] Jere Khoury MD Unavailable [phone] Susanna Garibay Unavailable Unavailable Cely Kothari Unavailable [phone] Reason for Visit * Reason Comments Med Refill Encounter Details Date Type Department Care Team (Late st Contact Info) Description 12/07/2024 Refill [facility]S [address] [place], [place] [phone] Katelynn Guzman MD [address] [place] [address] Chronic vaginitis Social History Tobacco Use Types [...] Description 07/18/2025 10:45 AM EDT Office Visit [address] [address] Katelynn Guzman MD [address] [place] [address] 07/25/2025 11:30 AM EDT Medication Management [address] [address] Heena Howard, PharmD [address] [place] [address] 07/26/2025 1:00 PM EDT Clinical Support [address] [address] documented as of this encounter Goals Goal [...] documented as of this encounter Care Teams Agency Sales Representative Relationship Specialty Start Date End Date Katelynn Guzman MD [address] [place] [address] PCP - General Family Medicine 10/26/13 Heena Howard, PharmD [address] [place] [address] Pharmacist Internal Medicine 09/26/22 Jere Khoury MD [address] [place] [address] Hematology and Oncology 09/20/24 Susanna Garibay [address] [place] [address] Ophthalmology 10/29/24 Cely Kothari [address] [place] [address] [place] [address] Pulmonary Disease 11/16/24 Ghislaine Stone Psychiatry 10/26/24 documented as of this encounter
--- OUTSIDE RECORDS SUMMARY | 2025-06-30 11:03 | XMS_ITS | Encounter Summary ---
Author Organization [employer] Address [address] [place] [address] Care Team Providers Care Assault Amphibious Vehicle Crewman Name Role Phone Katelynn Guzman MD Primary Care Provider [phone]- [phone] Heena Howard PharmD Unavailable [phone] Jere Khoury MD Unavailable [phone] Susanna Garibay Unavailable Unavailable Cely Kothari Unavailable [phone] Reason for Visit * Reason Comments Med Refill Encounter Details Date Type Department Care Team (Late st Contact Info) Description 10/12/2024 Refill [facility] [address] [place], [place] [id number] Katelynn Guzman MD [address] [place] [address] Pain; Chronic vaginitis Social History Tobacco Use [...] Description 07/18/2025 10:45 AM EDT Office Visit [address] [address] Katelynn Guzman MD [address] [place] [phone] 07/25/2025 11:30 AM EDT Medication Management [address] [address] Heena Howard, PharmD [address] [place] [phone] 07/26/2025 1:00 PM EDT Clinical Support [address] [address] documented as of this encounter Goals Goal [...] documented as of this encounter Care Teams Assault Amphibious Vehicle Crewman Relationship Specialty Start Date End Date Katelynn Guzman MD [address] [place] [address] PCP - General Family Medicine 10/26/13 Heena Howard, PharmD [address] [place] [phone] Pharmacist Internal Medicine 09/26/22 Jere Khoury MD [address] [place] [phone] Hematology and Oncology 09/20/24 Susanna Garibay [address] [place] [phone] Ophthalmology 10/29/24 Cely Kothari [address] [place] [address] [place] [id number] Pulmonary Disease 11/16/24 Ghislaine Stone Psychiatry 10/26/24 documented as of this encounter
[2025-06-30 12:38] LABS: Microalbum/Creatinine Ratio Ur 22.6 ug/mg cr (<30)
== END 2025-06-30 09:27 | disposition home or self-care (01) ==
LOC: HO.HHCL 09:26
PROVIDERS: PCP Family Medicine; Visit Provider Family Medicine
DX: E11.40 Type 2 diabetes mellitus with diabetic neuropathy, unspecified (principal); Z79.4 Long term (current) use of insulin
CPT/HCPCS: 82043; 82570